=== PATIENT | male | born 1935 | race Caucasian/White ===

== ENCOUNTER 2023-05-10 16:14 | Observation (INO) | payer MEDICARE, SELFPAY ==
[2023-05-10 16:18] VITALS: BP 181/71; PULSE 97; RESP 16; TEMP 36.7; O2SAT 98; BMI 24.4
--- NOTE | 2023-05-10 16:25 | XR_ITS ---
The [address] [address] Patient Name: ARTEMIO LEAVITT MRN: [id number] date: 1935 Sex: M Assigned Patient Location: ER Current Patient Location: ER Accession/Order Number: [id number] Exam Date: 05/10/2023 16:48 Report Date: 05/10/2023 17:19 At the request of: JUAN CARLOS MCDANIELS Procedure: XR ankle LT min 3V EXAM: XR ankle LT min 3V, XR tibia fibula LT 2V HISTORY: pain COMPARISON: None. TECHNIQUE: 3 views of the left ankle. AP and lateral views of the left leg. FINDINGS: There is a spiral fracture of the distal fibula with mild valgus angulation and minimal lateral offset of the distal fracture fragment. The tibia is intact. There is mild widening at the medial aspect of the ankle mortise. Articulations at the knee are intact. Distal soft tissue swelling is noted. XR/XR ankle LT min 3V IMPRESSION: Spiral fracture of the distal fibula. Electronically authenticated by: Anuj BYERS Date: 05/10/2023 17:19
--- NOTE | 2023-05-10 16:25 | XR_ITS ---
The [address] [address] Patient Name: ARTEMIO LEAVITT MRN: [id number] date: 1935 Sex: M Assigned Patient Location: ER Current Patient Location: ER Accession/Order Number: [id number] Exam Date: 05/10/2023 16:48 Report Date: 05/10/2023 17:19 At the request of: JUAN CARLOS MCDANIELS Procedure: XR tibia fibula LT 2V EXAM: XR ankle LT min 3V, XR tibia fibula LT 2V HISTORY: pain COMPARISON: None. TECHNIQUE: 3 views of the left ankle. AP and lateral views of the left leg. FINDINGS: There is a spiral fracture of the distal fibula with mild valgus angulation and minimal lateral offset of the distal fracture fragment. The tibia is intact. There is mild widening at the medial aspect of the ankle mortise. Articulations at the knee are intact. Distal soft tissue swelling is noted. XR/XR tibia fibula LT 2V IMPRESSION: Spiral fracture of the distal fibula. Electronically authenticated by: Anuj BYERS Date: 05/10/2023 17:19
[2023-05-10] MEDS: HYDROCODONE/ACET 5-325 MG TABLET 1 TAB PO (16:43)
--- NOTE | 2023-05-10 18:06 | ED.GENADUL1 ---
HPI - General Adult General Chief complaint: Extremity Injury, Lower Stated complaint: Fall Time Seen by Provider: 05/10/23 16:25 Source: patient Mode of arrival: ambulance Limitations: no limitations History of Present Illness HPI narrative: Patient is a 87-year-old male who is presenting to the Emergency Room today with chief complaint of left lower leg pain. Patient is having moderate to severe pain to his left lower leg, ankle. It was initially reported by EMS the patient was having left hip pain. Patient was a home by himself, patient is alert and oriented ?3. Patient typically uses a wheelchair during the day and can use a walker to stand up for transfers at home. Patient earlier this morning was in the bathroom and had misstep with some type of twisting injury to his left lower ankle and falling down. Patient is on blood thinners, Eliquis. Patient denied his head. He has no headache or neck pain. Patient did have some right-sided chest wall pain, but that improved. Patiient has Leobardo wraps wrapped around his lower legs to help with lymphedema chronic. EMS was called to patient's house earlier this morning to help with a lift assist. Patient did not want to come to the Emergency Room at that time. However as the day progressed, patient cannot put any weight on his left lower leg. Patient finally called EMS again to bring patient back to the Emergency Room. Patient has no obvious deformity, no ecchymosis. Patient no longer has right sided chest wall pain, patient is only complaining of pain to his left lower leg and his ankle. No pain to his left foot, patient denies any pain to his left hip despite that his report we got from EMS upon arrival the patient was coming to the Emergency Room because of left hip pain. . All systems are negative except as noted/marked. All systems reviewed and otherwise negative. . Nurses note and vital signs reviewed and patient is not hypoxic. Alert and oriented ?3, GCS of 15. General: The patient appears Mild distress secondary to pain to left lower leg. Patient is resting uncomfortably on cart. Patient is not toxic, lethargic, or listless. Skin: Warm, dry, no pallor noted. There is no rash noted. No petechiae, purpura. Head: Normocephalic, atraumatic Eye: Normal conjunctiva, no drainage, EOMI. PERRL Ears, Nose, Mouth, and Throat: oral mucosa is moist. Nares patent. Mouth without vesicles. Cardiovascular: Regular Rate and Rhythm, no murmur, gallop, rub Respiratory: Patient is in no distress, no accessory muscle use, lungs are clear to auscultation, no wheezing, rales or rhonchi Back: non-tender, no CVA tenderness bilaterally to percussion. No CT LS midline pain GI: soft, no tenderness to palpation, no masses appreciated. No rebound, guarding, or rigidity noted. No flank pain bilateral, No distention Musculoskeletal: Patient has full range of motion of all of the extremities Except to left lower extremities. Patient has no pain to left hip with internal or external rotation, he does have pain to left lower leg without range of motion. Patient is able to flex and extend left knee with no pain to the left knee but to the distal left lower leg. Patient has no tenderness to palpation to the left foot, left Achilles tendon appears to be intact. Patient has moderate pain to the medial aspect of his left ankle, mild pain to the lateral aspect of his left ankle. Patient has moderate tenderness to palpation to the distal left tibia and fibula. No obvious deformity, no ecchymosis, no crepitus. Otherwise no motor, sensory, or focal neurological deficits Neurological: A&O x3, normal speech Psychiatric: Cooperative Related Data Home Medications Medication Instructions Recorded Confirmed apixaban 5 mg tablet (Eliquis) 5 mg PO QDAY 05/10/23 05/10/23 atorvastatin 40 mg tablet 40 mg PO .qhs 05/10/23 05/10/23 diltiazem HCl 180 mg 180 mg PO Q24H 05/10/23 05/10/23 capsule,extended release 24 hr ferrous sulfate 325 mg (65 mg 325 mg PO DAILY 05/10/23 05/10/23 iron) tablet metformin 750 mg tablet,extended 750 mg PO QDAY 05/10/23 05/10/23 release 24 hr metoprolol succinate 50 mg 50 mg PO QDAY 05/10/23 05/10/23 tablet,extended release 24 hr Allergies Allergy/AdvReac Type Severity Reaction Status Date / Time No Known Drug Allergies Allergy Verified 05/10/23 16:23 PFSH PFS Social History Smoking status: Never smoker Exam Constitutional Vital Signs, click to edit/add: Last Vital Signs Temp 98.1 F 05/10/23 16:18 Pulse 97 H 05/10/23 16:18 Resp 16 05/10/23 16:18 BP 181/71 H 05/10/23 16:18 Pulse Ox 98 05/10/23 16:18 O2 Del Method Room Air 05/10/23 16:18 Course Vital Signs Vital signs: Vital Signs Temperature 98.1 F 05/10/23 16:18 Pulse Rate 97 H 05/10/23 16:18 Respiratory Rate 16 05/10/23 16:18 Blood Pressure 181/71 H 05/10/23 16:18 Pulse Oximetry 98 05/10/23 16:18 Oxygen Delivery Method Room Air 05/10/23 16:18 Temperature 98.1 F 05/10/23 16:18 Pulse Rate 97 H 05/10/23 16:18 Respiratory Rate 16 05/10/23 16:18 Blood Pressure 181/71 H 05/10/23 16:18 Pulse Oximetry 98 05/10/23 16:18 Oxygen Delivery Method Room Air 05/10/23 16:18 Medical Decision Making [facility] Narrative Medical decision making narrative: Patient has a left distal fibula spiral fracture with minimal displacement noted on x-ray. [address] Rogers, orthopedic surgeon. He agrees with placing patient in a cam boot/surgical boot and this is nonoperable. He had no other recommendations at this time. Patient will be admitted to the hospital because he is not able to function at home. Patient was a home by himself, patient uses a wheelchair throughout the day, will use a walker for transfers only. [facility] Patient does not want to go back to [facility]. Patient will need physical therapy, occupational therapy, and rehab placement. Dr. Rogers, orthopedic surgeon, stated this is nonoperable. Patient had ice, Leobardo wrap and surgical boot applied. Patient is on Eliquis. Patient has history of diabetes, cholesterol, atrial fibrillation, and hypertension. Procedure note: Leobardo wrap and surgical boot to left lower extremity secondary to left distal spiral fibular fracture, displaced. Splint was assisted with . the patient was neurovascularly intact before and after the splint was placed. the affected bones/injured area had proper alignment in a splint. Education on splint care at home was given at bedside. Patient and family have no questions at discharge. I spoke to Mauri Thrasher CNP, for admission. Patient will be admission for MedSurg observation, patient will require social psychologist consultation along with physical therapy and occupational therapy consultation and most likely rehab placement. Lab Data Lab results reviewed: Yes I reviewed the patient's lab results Labs: Lab Results 05/10/23 Range/Units 18:18 WBC 13.2 H (4.0-11.0) 10^3/uL RBC 3.56 L (4.70-6.10) 10^6/uL Hgb 11.5 L (14.0-18.0) g/dL Hct 35.2 L (42.0-54.0) % MCV 98.9 H (80.0-94.0) fL MCH 32.3 (25.9-34.0) pg MCHC 32.7 (29.9-35.2) g/dL RDW 13.2 (11.0-15.0) % Plt Count 276 (150-450) 10^3/uL MPV 10.7 (9.5-13.5) fL Neut % (Auto) 88.9 H (43.0-75.0) % Lymph % (Auto) 3.9 L (20.5-60.0) % Garza % (Auto) 6.6 (1.7-12.0) % Eos % (Auto) 0.2 L (0.9-7.0) % Baso % (Auto) 0.2 (0.2-2.0) % Neut # (Auto) 11.8 H (1.4-6.5) 10^3/uL Lymph # (Auto) 0.5 L (1.2-3.8) 10^3/uL Garza # (Auto) 0.9 H (0.3-0.8) 10^3/uL Eos # (Auto) 0.0 (0.0-0.7) 10^3/uL Baso # (Auto) 0.0 (0.0-0.1) 10^3/uL Abs Immat Gran (auto) 0.03 (0.00-0.03) 10^3/uL Imm/Tot Granulo (auto) 0.2 (0.0-0.5) % Sodium 136 (136-145) mmol/L Potassium 3.8 (3.5-5.1) mmol/L Chloride 98 (98-107) mmol/L Carbon Dioxide 31.8 (21.0-32.0) mmol/L Anion Gap 10.0 BUN 20.0 H (7.0-18.0) mg/dL Creatinine 0.50 L (0.70-1.30) mg/dL Est GFR ( Amer) >60 (>=60) Est GFR (Non-Af Amer) >60 (>=60) BUN/Creatinine Ratio 40.0 Glucose 127 H (74-106) mg/dL Calcium 9.2 (8.5-10.1) mg/dL Total Creatine Kinase 295 (39-308) U/L Imaging Data Chest x-ray: Radiologist's impression: ITS Impressions Ankle X-Ray 05/10/23 16:25 IMPRESSION: Spiral fracture of the distal fibula. Electronically authenticated by: Anuj BYERS Date: 05/10/2023 17:19 Tibia/Fibula X-Ray 05/10/23 16:25 IMPRESSION: Spiral fracture of the distal fibula. Electronically authenticated by: Anuj BYERS Date: 05/10/2023 17:19 Discharge Plan Discharge Chief Complaint: Extremity Injury, Lower Clinical Impression: Ankle sprain and strain, Closed left fibular fracture Patient Disposition: Admitted as Observation Time of Disposition Decision: 18:10 Condition: Fair
[2023-05-10 18:26] LABS: Basophils Percent Auto 0.2 % (0.2-2.0); Eosinophils Percent Auto 0.2 % (0.9-7.0); Hematocrit 35.2 % (42.0-54.0); Hemoglobin 11.5 g/dL (14.0-18.0); Immature Granulocytes Abs Auto 0.03 10^3/uL (0.00-0.03); Immature Granulocytes Pct Auto 0.2 % (0.0-0.5); Lymphocytes Absolute Auto 0.5 10^3/uL (1.2-3.8); Lymphocytes Percent Auto 3.9 % (20.5-60.0); Mean Corpuscular HGB Conc 32.7 g/dL (29.9-35.2); Mean Corpuscular Hemoglobin 32.3 pg (25.9-34.0); Mean Corpuscular Volume 98.9 fL (80.0-94.0); Mean Platelet Volume 10.7 fL (9.5-13.5); Monocytes Absolute Auto 0.9 10^3/uL (0.3-0.8); Monocytes Percent Auto 6.6 % (1.7-12.0); Neutrophils Absolute Auto 11.8 10^3/uL (1.4-6.5); Neutrophils Percent Auto 88.9 % (43.0-75.0); Platelet Count 276 10^3/uL (150-450); Red Blood Count 3.56 10^6/uL (4.70-6.10); Red Cell Distribution Width 13.2 % (11.0-15.0); White Blood Count 13.2 10^3/uL (4.0-11.0)
[2023-05-10 18:36] LABS: Calcium 9.2 mg/dL (8.5-10.1); Carbon Dioxide 31.8 mmol/L (21.0-32.0); Chloride 98 mmol/L (98-107); Estimated GFR (African America >60 (>=60); Estimated GFR (Non-African Ame >60 (>=60); Glucose 127 mg/dL (74-106); Potassium 3.8 mmol/L (3.5-5.1); Sodium 136 mmol/L (136-145)
[2023-05-10 18:52] LABS: Creatine Kinase 295 U/L (39-308)
[2023-05-10 19:31] VITALS: BP 153/74; PULSE 74; RESP 16; TEMP 36.6; O2SAT 94
[2023-05-10 19:52] VITALS: BP 153/74; PULSE 78; RESP 16; TEMP 36.6; O2SAT 94
[2023-05-10 20:13] VITALS: BP 168/70; PULSE 72; RESP 20; TEMP 37; O2SAT 91; BMI 22.4
[2023-05-10 22:34] LABS: Glucometer 195 mg/dL (74-106)
[2023-05-11] VITALS (11 sets, daily range): BP systolic 112–165; BP diastolic 54–72; PULSE 63–87; RESP 18–20; TEMP 36.4–36.6; O2SAT 90–92; BMI 22.4
[2023-05-11] MEDS: HYDROCODONE/ACET 5-325 MG TABLET 1 TAB PO ×3 (01:17→21:21)
[2023-05-11 06:02] LABS: Basophils Percent Auto 0.2 % (0.2-2.0); Eosinophils Percent Auto 0.2 % (0.9-7.0); Hematocrit 29.7 % (42.0-54.0); Hemoglobin 9.7 g/dL (14.0-18.0); Immature Granulocytes Abs Auto 0.04 10^3/uL (0.00-0.03); Immature Granulocytes Pct Auto 0.5 % (0.0-0.5); Lymphocytes Absolute Auto 0.6 10^3/uL (1.2-3.8); Lymphocytes Percent Auto 6.3 % (20.5-60.0); Mean Corpuscular HGB Conc 32.7 g/dL (29.9-35.2); Mean Corpuscular Hemoglobin 32.2 pg (25.9-34.0); Mean Corpuscular Volume 98.7 fL (80.0-94.0); Mean Platelet Volume 11.3 fL (9.5-13.5); Monocytes Absolute Auto 0.9 10^3/uL (0.3-0.8); Monocytes Percent Auto 10.6 % (1.7-12.0); Neutrophils Absolute Auto 7.3 10^3/uL (1.4-6.5); Neutrophils Percent Auto 82.2 % (43.0-75.0); Platelet Count 250 10^3/uL (150-450); Red Blood Count 3.01 10^6/uL (4.70-6.10); Red Cell Distribution Width 13.2 % (11.0-15.0); White Blood Count 8.8 10^3/uL (4.0-11.0)
[2023-05-11 06:19] LABS: Anion Gap 9.3; BUN Creatinine Ratio 42.6; Calcium 8.6 mg/dL (8.5-10.1); Carbon Dioxide 31.2 mmol/L (21.0-32.0); Chloride 99 mmol/L (98-107); Estimated GFR (African America >60 (>=60); Estimated GFR (Non-African Ame >60 (>=60); Glucose 124 mg/dL (74-106); Potassium 3.5 mmol/L (3.5-5.1); Sodium 136 mmol/L (136-145)
[2023-05-11] MEDS: SENNOSIDES 8.6 MG TABLET PO (07:53)
[2023-05-11] MEDS: METOPROLOL SUCCINATE 50 MG TAB.ER.24H PO (08:35)
[2023-05-11] MEDS: METFORMIN HCL 500 MG TAB.ER.24H 750 MG PO (08:35)
[2023-05-11] MEDS: APIXABAN 5 MG TABLET PO (08:35)
[2023-05-11] MEDS: FERROUS SULFATE 325 MG TABLET PO (08:38)
[2023-05-11 09:25] LABS: Adenovirus NOT DETECTED (NOT DETECTE); Bordetella parapertussis NOT DETECTED (NOT DETECTE); Coronavirus 229E NOT DETECTED (NOT DETECTE); Coronavirus HKU1 NOT DETECTED (NOT DETECTE); Coronavirus NL63 NOT DETECTED (NOT DETECTE); Coronavirus OC43 NOT DETECTED (NOT DETECTE); Human Metapneumovirus NOT DETECTED (NOT DETECTE); Human Rhinovirus/Enterovirus NOT DETECTED (NOT DETECTE); Influenza A NOT DETECTED (NOT DETECTE); Influenza B NOT DETECTED (NOT DETECTE); Mycoplasma pneumoniae NOT DETECTED (NOT DETECTE); Parainfluenza Virus 1 NOT DETECTED (NOT DETECTE); Parainfluenza Virus 2 NOT DETECTED (NOT DETECTE); Parainfluenza Virus 3 NOT DETECTED (NOT DETECTE); Parainfluenza Virus 4 NOT DETECTED (NOT DETECTE); Respiratory Syncytial Virus NOT DETECTED (NOT DETECTE); SARS-CoV-2 NOT DETECTED (NOT DETECTE)
--- NOTE | 2023-05-11 10:58 | CM.NOTE ---
Rounding with Dr. Louis, discussed with pt about skilled therapy at discharge. Pt is in agreement for [facility].
[2023-05-11 11:23] LABS: Glucometer 189 mg/dL (74-106)
--- NOTE | 2023-05-11 11:50 | P.HP_ITS ---
<Statement entered by Bob Louis MD - 05/11/23 17:31> Patient seen and examined, agree with assessment and plan below. Presented after a fall and increased ankle pain. Found fracture and ER discussed with ortho who stated nonsurgical. Admitted for pain control. Consult ortho for weight bearing status. Continue medication for pain. Likely will need SNF for rehab. Diagnosis: 1. Closed left fibular fracture 2. Left ankle sprain 3. DM2 with hyperglycemia 4. HTN 5. 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 The patient reports he was trying to retrieve something from the toilet bowl when he lost his balance and fell. His foot was stuck in an awkward position when he fell resulting in left ankle pain. He presented to the ED for further evaluation as he was unable to ambulate. Workup in the ED revealed hyperglycemia (124), with otherwise unremarkable labs. X-rays of his left ankle revealed a distal fibula spiral fracture with mild valgus angulation and minimal offset of the distal fragment. Dr. Rogers was consulted from the ED and he informed them that this was a nonsurgical fracture and the splint should be placed. As the patient lives alone and will be unable to care for himself while he is currently nonambulatory, he was admitted to observation to the hospitalist service with hopes of placement at a local SNF for rehab. At the time of my exam the patient is resting comfortably in bed. He complains of nasal congestion that is intermittent and chronic for him and left ankle pain, but otherwise denies any acute complaints. He has very minimal range of motion of his bilateral shoulders due to chronic MSK issues. He navigates mostly in a wheelchair at home due to his severe balance problems, but does use a walker to ambulate in his bathroom as a wheelchair does not fit. He is aware this is a nonsurgical fracture. We have consulted Dr. Rogers for long-term immobilization recommendations as well as weightbearing and physical therapy recommendations. Review of Systems ROS Status of ROS 10 or more systems reviewed and unremark able except as noted in history and below [facility] Medical History (Updated 05/11/23 @ 12:03 by Tyra Schroeder NP) Paroxysmal atrial fibrillation ?I48.0 - Paroxysmal atrial fibrillation (ICD-10) Type 2 diabetes mellitus with hyperglycemia ?E11.65 - Type 2 diabetes mellitus with hyperglycemia (ICD-10) HTN (hypertension) ?I10 - Essential (primary) hypertension (ICD-10) Ankle sprain and strain ?S93.409A - Sprain of unspecified ligament of unspecified ankle, initial encounter (ICD-10) ?S96.919A - Strain of unspecified muscle and tendon at ankle and foot level, unspecified foot, initial encounter (ICD-10) High cholesterol ?E78.00 - Pure hypercholesterolemia, unspecified (ICD-10) Atrial fibrillation ?I48.91 - Unspecified atrial fibrillation (ICD-10) Diabetes 1.5, managed as type 2 ?E13.9 - Other specified diabetes mellitus without complications (ICD-10) Surgical History (Updated 05/10/23 @ 20:31 by Rukhsana Perez) Hernia ?K46.9 - Unspecified abdominal hernia without obstruction or gangrene (ICD- 10) History of tonsillectomy ?Z90.89 - Acquired absence of other organs (ICD-10) Back pain with history of spinal surgery ?M54.9 - Dorsalgia, unspecified (ICD-10) ?Z98.890 - Other specified postprocedural states (ICD-10) Social History (Updated 05/10/23 @ 20:32 by Rukhsana Perez) Within the past year, how often did you have a drink containing alcohol: 4 or more times a week Within the past year, how many standard drinks containing alcohol did you have on a typical day: 1 or 2 Total score: 0 Score interpretation: A score less than 4 is consistent with normal alcohol consumption. Smoking status: Never smoker Non-prescribed substance use: denies use Previous occupational history: retired Highest level of school completed/degree received: Bachelor's degree Are you now , , , , never or living with a partner: In a typical week, how many times do you talk on the telephone with family, friends, or neighbors: 3 or more times per week How often do you get together with friends or relatives: 3 or more times per week How often do you attend religion or hindu services: never Do you belong to any clubs or organizations such as religion groups unions, fraternal or athletic groups, or school groups: no Total score: 2 Score interpretation: A score of greater than or equal to 2 indicates the lowest level of social isolation. Little interest or pleasure in doing things: not at all Feeling down, depressed, or hopeless: not at all Feel stressed/tense/nervous/anxious/difficulty sleeping: not at all Do you think of yourself as: straight/heterosexual Gender Identity: male Meds Home Medications and Allergies Home Medications Medication Instructions Recorded Confirmed Type apixaban 5 mg tablet (Eliquis) 5 mg PO QDAY 05/10/23 05/10/23 History atorvastatin 40 mg tablet 40 mg PO .qhs 05/10/23 05/10/23 History diltiazem HCl 180 mg 180 mg PO Q24H 05/10/23 05/10/23 History capsule,extended release 24 hr ferrous sulfate 325 mg (65 mg 325 mg PO DAILY 05/10/23 05/10/23 History iron) tablet metformin 750 mg tablet,extended 750 mg PO QDAY 05/10/23 05/10/23 History release 24 hr metoprolol succinate 50 mg 50 mg PO QDAY 05/10/23 05/10/23 History tablet,extended release 24 hr Allergies Allergy/AdvReac Type Severity Reaction Status Date / Time No Known Drug Allergies Allergy Verified 05/10/23 16:23 Exam Constitutional Vital Signs, click to edit/add: Last Vital Signs Temp 97.5 F L 05/11/23 05:31 Pulse 63 05/11/23 05:31 Resp 18 05/11/23 08:00 BP 112/54 05/11/23 05:31 Pulse Ox 91 L 05/11/23 05:31 O2 Del Method Room Air 05/11/23 05:31 Common normals: no apparent distress, oriented x3, alert and well nourished General appearance: cooperative Orientation/consciousness: Yes awake HENMT Common normals: normocephalic, head/scalp atraumatic, hearing grossly normal bilaterally, external nose normal and moist oral mucous membranes Eye Common normals: PERRL, EOMs intact bilaterally, conjunctivae normal and no scleral icterus Alignment: alignment normal Eyelid: eyelids normal Neck & C-Spine Common normals: full ROM, supple and no JVD Chest Common normals: inspection of chest normal Chest: symmetrical chest wall rise Respiratory Common normals: normal respiratory effort, no retractions, no use of accessory muscles and clear to auscultation bilaterally Cardio Common normals: no JVD, regular rate, regular rhythm, S1 normal heart sound, S2 normal heart sound, no gallops, no clicks, no rub and peripheral pulses 2+ throughout Heart sounds: murmur (HSM 4/6) GI Common normals: Normal to inspection, nondistended, normoactive bowel sounds present, soft to palpation, non-tender, no hepatosplenomegaly, no masses and no bruits Bladder/kidney exam: bladder normal to palpation Back & Pelvis Common normals: thoracic and lumbar spine normal to inspection Extremity Common normals: normal capillary refill General: normal exam except as noted and edema (Chronic venous stasis edema, 2- 3+ midshin to toes); no clubbing and no cyanosis Left lower extremity: ankle joint (Painful. Splint in place. CMS to L toes intact) Other: Chronic venous stasis dermatitis. Neuro Carlos Coma Scale: GCS not evaluated Common normals: CN's II-XII intact bilaterally, moves all extremities, no focal motor deficits and no sensory deficits noted Speech: speech normal Sensory exam: sensory level loss detected (BLE 2/2 chronic neuropathy) Psych Common normals: mental status grossly normal, thought process normal, affect normal and activity/motor behavior normal Results Labs Labs: Short CBC 05/10/23 05/11/23 Range/Units 18:18 05:13 WBC 13.2 H 8.8 (4.0-11.0) 10^3/uL Hgb 11.5 L 9.7 L (14.0-18.0) g/dL Hct 35.2 L 29.7 L (42.0-54.0) % Plt Count 276 250 (150-450) 10^3/uL BMP 05/10/23 05/11/23 18:18 05:13 Sodium 136 136 Potassium 3.8 3.5 Chloride 98 99 Carbon Dioxide 31.8 31.2 BUN 20.0 H 23.0 H Creatinine 0.50 L 0.54 L Glucose 127 H 124 H Calcium 9.2 8.6 Cardiac Enzymes 05/10/23 Range/Units 18:18 Total Creatine Kinase 295 (39-308) U/L Pulse Oximetry Attestation: I have reviewed the pertinent pulse oximetry results. Imaging L Ankle/Tib/Fib: Radiologist's impression: IMPRESSION: Spiral fracture of the distal fibula. Assessment and Plan Assessment and Plan (1) Closed left fibular fracture: Assessment and Plan: ACUTE * Adm observation * Maintain splint to L ankle as placed in ED * C/S Orthopedics - we appreciate Dr Rogers's assistance with this pt's care * Defer immobilization, WB, and PT order scope to ortho service * Dola PRN for pain * Plan d/c to local SNF for rehab (2) High cholesterol: Assessment and Plan: CHRONIC * Continue home statin (3) HTN (hypertension): Assessment and Plan: CHRONIC * Continue home BB * PRN hydralazine IVP for uncontrolled HTN (4) Type 2 diabetes mellitus with hyperglycemia: Assessment and Plan: CHRONIC * Continue home metformin * ACHS glucometer checks * SSI for glucose correction * CC diet 1800 kcal (5) Paroxysmal atrial fibrillation: Assessment and Plan: CHRONIC * Continue home Eliquis for CVA prevention * Surgical intervention for L ankle fracture not indicated per ortho. No need to hold anticoagulation * Continue home BB for rate control - currently well controlled * tele monitoring
--- NOTE | 2023-05-11 12:29 | CM.NOTE ---
Faxed clinical to [facility] for new referral.
[2023-05-11] MEDS: PSEUDOEPHEDRINE HCL 30 MG TABLET PO ×2 (12:31→21:21)
--- NOTE | 2023-05-11 12:57 | DIETREC ---
Recommend Ensure 1 container bid po for progressive healing of fracture
--- NOTE | 2023-05-11 13:26 | CM.NOTE ---
[facility] will accept pt, updated RN and patient.
--- NOTE | 2023-05-11 16:25 | CM.NOTE ---
Medicare Outpatient Observation Notice discussed with pt, pt verbalizes understanding and signs paper. Original given to pt and copy placed on pt's chart.
[2023-05-11 16:34] LABS: Glucometer 119 mg/dL (74-106)
--- NOTE | 2023-05-11 18:50 | P.ORCN_ITS ---
History of Present Illness HPI Consult date: 05/11/23 Consult reason: fracture Chief complaint: Fall,Left Distal Fibula Fracture Narrative: Patient is an 87-year-old male who was sitting on the toilet today. He dropped some tissue in the toilet stood up to try to get off the tissue fell twisting his left ankle with acute onset of pain. He was transported to the emergency room where x-rays revealed a distal fibula fracture. At baseline he mobilizes typically using a wheelchair due to difficulties with balance. He will bear weight on his legs for transfers using a walker for assistance. Review of Systems ROS Status of ROS 10 or more systems reviewed and unremark able except as noted in history and below [facility] Medical History (Updated 05/11/23 @ 12:03 by Tyra Schroeder NP) Paroxysmal atrial fibrillation ?I48.0 - Paroxysmal atrial fibrillation (ICD-10) Type 2 diabetes mellitus with hyperglycemia ?E11.65 - Type 2 diabetes mellitus with hyperglycemia (ICD-10) HTN (hypertension) ?I10 - Essential (primary) hypertension (ICD-10) Ankle sprain and strain ?S93.409A - Sprain of unspecified ligament of unspecified ankle, initial encounter (ICD-10) ?S96.919A - Strain of unspecified muscle and tendon at ankle and foot level, unspecified foot, initial encounter (ICD-10) High cholesterol ?E78.00 - Pure hypercholesterolemia, unspecified (ICD-10) Atrial fibrillation ?I48.91 - Unspecified atrial fibrillation (ICD-10) Diabetes 1.5, managed as type 2 ?E13.9 - Other specified diabetes mellitus without complications (ICD-10) Surgical History (Updated 05/10/23 @ 20:31 by Rukhsana Perez) Hernia ?K46.9 - Unspecified abdominal hernia without obstruction or gangrene (ICD- 10) History of tonsillectomy ?Z90.89 - Acquired absence of other organs (ICD-10) Back pain with history of spinal surgery ?M54.9 - Dorsalgia, unspecified (ICD-10) ?Z98.890 - Other specified postprocedural states (ICD-10) Social History (Updated 05/10/23 @ 20:32 by Rukhsana Perez) Within the past year, how often did you have a drink containing alcohol: 4 or more times a week Within the past year, how many standard drinks containing alcohol did you have on a typical day: 1 or 2 Total score: 0 Score interpretation: A score less than 4 is consistent with normal alcohol consumption. Smoking status: Never smoker Non-prescribed substance use: denies use Previous occupational history: retired Highest level of school completed/degree received: Bachelor's degree Are you now , , , , never or living with a partner: In a typical week, how many times do you talk on the telephone with family, frie nds, or neighbors: 3 or more times per week How often do you get together with friends or relatives: 3 or more times per week How often do you attend congregational or evangelical services: never Do you belong to any clubs or organizations such as congregational groups unions, [employer] or athletic groups, or school groups: no Total score: 2 Score interpretation: A score of greater than or equal to 2 indicates the lowest level of social isolation. Little interest or pleasure in doing things: not at all Feeling down, depressed, or hopeless: not at all Feel stressed/tense/nervous/anxious/difficulty sleeping: not at all Do you think of yourself as: straight/heterosexual Gender Identity: male Meds Home Medications and Allergies Home Medications Medication Instructions Recorded Confirmed Type apixaban 5 mg tablet (Eliquis) 5 mg PO QDAY 05/10/23 05/10/23 History atorvastatin 40 mg tablet 40 mg PO .qhs 05/10/23 05/10/23 History diltiazem HCl 180 mg 180 mg PO Q24H 05/10/23 05/10/23 History capsule,extended release 24 hr ferrous sulfate 325 mg (65 mg 325 mg PO DAILY 05/10/23 05/10/23 History iron) tablet metformin 750 mg tablet,extended 750 mg PO QDAY 05/10/23 05/10/23 History release 24 hr metoprolol succinate 50 mg 50 mg PO QDAY 05/10/23 05/10/23 History tablet,extended release 24 hr Allergies Allergy/AdvReac Type Severity Reaction Status Date / Time No Known Drug Allergies Allergy Verified 05/10/23 16:23 Exam Narrative Exam Narrative: On exam he is in no obvious distress. Left ankle boot was removed. No significant swelling in his ankle. Skin is intact. Good capillary refill in the toes and is able to wiggle his toes. Constitutional Vital Signs, click to edit/add: Last Vital Signs Temp 97.9 F 05/11/23 14:00 Pulse 80 05/11/23 17:27 Resp 18 05/11/23 14:00 BP 133/69 05/11/23 14:00 Pulse Ox 92 L 05/11/23 14:00 O2 Del Method Room Air 05/11/23 14:00 Results Labs Labs: Abnormal lab results 05/10/23 05/11/23 05/11/23 Range/Units 22:29 05:13 11:22 RBC 3.01 L (4.70-6.10) 10^6/uL Hgb 9.7 L (14.0-18.0) g/dL Hct 29.7 L (42.0-54.0) % MCV 98.7 H (80.0-94.0) fL Neut % (Auto) 82.2 H (43.0-75.0) % Lymph % (Auto) 6.3 L (20.5-60.0) % Eos % (Auto) 0.2 L (0.9-7.0) % Neut # (Auto) 7.3 H (1.4-6.5) 10^3/uL Lymph # (Auto) 0.6 L (1.2-3.8) 10^3/uL [place] # (Auto) 0.9 H (0.3-0.8) 10^3/uL Abs Immat Gran (auto) 0.04 H (0.00-0.03) 10^3/uL BUN 23.0 H (7.0-18.0) mg/dL Creatinine 0.54 L (0.70-1.30) mg/dL Glucose 124 H (74-106) mg/dL POC Glucose 195 H 189 H (74-106) mg/dL 05/11/23 Range/Units 16:33 RBC (4.70-6.10) 10^6/uL Hgb (14.0-18.0) g/dL Hct (42.0-54.0) % MCV (80.0-94.0) fL Neut % (Auto) (43.0-75.0) % Lymph % (Auto) (20.5-60.0) % Eos % (Auto) (0.9-7.0) % Neut # (Auto) (1.4-6.5) 10^3/uL Lymph # (Auto) (1.2-3.8) 10^3/uL [place] # (Auto) (0.3-0.8) 10^3/uL Abs Immat Gran (auto) (0.00-0.03) 10^3/uL BUN (7.0-18.0) mg/dL Creatinine (0.70-1.30) mg/dL Glucose (74-106) mg/dL POC Glucose 119 H (74-106) mg/dL H & H 05/10/23 05/11/23 Range/Units 18:18 05:13 Hgb 11.5 L 9.7 L (14.0-18.0) g/dL Hct 35.2 L 29.7 L (42.0-54.0) % All other labs normal. Diagnostic results Ankle/Foot x-ray: image reviewed (X-rays show a minimally displaced distal fibula fracture in the setting of severe osteoporosis. No widening of the ankle mortise) Assessment and Plan Assessment and Plan (1) Closed left fibular fracture: (2) High cholesterol: (3) HTN (hypertension): (4) Type 2 diabetes mellitus with hyperglycemia: (5) Paroxysmal atrial fibrillation: Plan For his left distal fibular fracture he can be treated long-term in the cam boot. No indication for surgical intervention. Recommend elevation. Patient may bear weight for transfers using a walker as long as he is wearing the boot. He should have follow-up in the office with me in 2 weeks to repeat x-rays and reassess his progress.
[2023-05-11 19:59] LABS: Glucometer 210 mg/dL (74-106)
[2023-05-11] MEDS: ATORVASTATIN CALCIUM 40 MG TABLET PO (21:21)
[2023-05-11] MEDS: DILTIAZEM HCL 180 MG CAP.ER.24H PO (21:21)
[2023-05-12] VITALS (8 sets, daily range): BP systolic 132–144; BP diastolic 58–60; PULSE 61–74; RESP 18; TEMP 36.5–36.8; O2SAT 90–92
[2023-05-12 05:08] LABS: Basophils Percent Auto 0.3 % (0.2-2.0); Eosinophils Absolute Auto 0.2 10^3/uL (0.0-0.7); Eosinophils Percent Auto 2.1 % (0.9-7.0); Hematocrit 29.3 % (42.0-54.0); Hemoglobin 9.6 g/dL (14.0-18.0); Immature Granulocytes Abs Auto 0.03 10^3/uL (0.00-0.03); Immature Granulocytes Pct Auto 0.4 % (0.0-0.5); Lymphocytes Absolute Auto 0.7 10^3/uL (1.2-3.8); Lymphocytes Percent Auto 9.8 % (20.5-60.0); Mean Corpuscular HGB Conc 32.8 g/dL (29.9-35.2); Mean Corpuscular Hemoglobin 32.3 pg (25.9-34.0); Mean Corpuscular Volume 98.7 fL (80.0-94.0); Mean Platelet Volume 11.3 fL (9.5-13.5); Monocytes Absolute Auto 0.9 10^3/uL (0.3-0.8); Monocytes Percent Auto 12.2 % (1.7-12.0); Neutrophils Absolute Auto 5.4 10^3/uL (1.4-6.5); Neutrophils Percent Auto 75.2 % (43.0-75.0); Platelet Count 220 10^3/uL (150-450); Red Blood Count 2.97 10^6/uL (4.70-6.10); Red Cell Distribution Width 13.2 % (11.0-15.0); White Blood Count 7.2 10^3/uL (4.0-11.0)
[2023-05-12 05:17] LABS: Anion Gap 4.9; Calcium 8.3 mg/dL (8.5-10.1); Carbon Dioxide 32.4 mmol/L (21.0-32.0); Chloride 99 mmol/L (98-107); Estimated GFR (African America >60 (>=60); Estimated GFR (Non-African Ame >60 (>=60); Glucose 104 mg/dL (74-106); Potassium 3.3 mmol/L (3.5-5.1); Sodium 133 mmol/L (136-145)
[2023-05-12] MEDS: HYDROCODONE/ACET 5-325 MG TABLET 1 TAB PO (06:44)
[2023-05-12] MEDS: SENNOSIDES 8.6 MG TABLET PO (09:01)
[2023-05-12] MEDS: METOPROLOL SUCCINATE 50 MG TAB.ER.24H PO (09:01)
[2023-05-12] MEDS: METFORMIN HCL 500 MG TAB.ER.24H 750 MG PO (09:01)
[2023-05-12] MEDS: FERROUS SULFATE 325 MG TABLET PO (09:01)
[2023-05-12] MEDS: PSEUDOEPHEDRINE HCL 30 MG TABLET PO (09:01)
--- NOTE | 2023-05-12 09:51 | CM.NOTE ---
Rounding with Dr. Louis. Pt. complaining about telemetry and Dr. Louis stated he will discontinue it. Discussed discharge plan and awaiting precert for [facility] facility [place].
[2023-05-12] MEDS: APIXABAN 5 MG TABLET PO (09:56)
--- NOTE | 2023-05-12 10:29 | CM.NOTE ---
Called Destinee sandhu GOODWIN to check on pt's precert, no word from insurance company at this time. Updates sent.
--- NOTE | 2023-05-12 10:59 | PT.DAILY ---
Physical Therapy Daily Note PT Daily Note/Assess Start: 05/12/23 10:50 Freq: Status: Active Protocol: Document 05/12/23 10:50 ZAHEER (Rec: 05/12/23 10:59 ZAHEER [id number]) Physical Therapy Daily Note/Assessment Time In/Time Out Time In 10:15 Time Out 10:30 Pain In Pain N/A Pain Out Pain Unresponsive Subjective Subjective Pt supine upon arrival. Agrees to PT. Reports sitting EOB with OT for breakfast. Therapeutic Exercise Time Therapeutic Exercise Minutes (minutes) 3 Therapeutic Exercise Units 0 Therapeutic Exercise Treatment Therapeutic Exercise Treatment Sitting EOB unsupported R AP, LAQ, marches and bilat Add squeezes 10x. L LAQ and marches 5x ea. Therapeutic Activity Time Therapeutic Activity Minutes (minutes) 10 Therapeutic Activity Units 1 Therapeutic Activity Treatment Bed Mobility Ability Moderate Assist Chair Transfer Ability Maximum Assist Therapeutic Activity Comments Pt performs supine>sit with ModA to advance upper body to sit EOB with increased time needed. Once sitting EOB unsupported to complete seated ex. Pt attempts to stand 4x with MaxA at RW but too apprehensive per pt. He just doesn't feel confident. Pt is then able to scoot himself up bed laterally to HOB without assistance. Pt returned to supine with Elizabeth to advance LEs into bed. Pillows placed under R LE due to swelling ( opposite of boot) Remains supine withcall light in reach and needs met. Total Physical Therapy Time Total Therapy Minutes 13 Total Physical Therapy Units 1 Summary Daily Note Summary Fair tolerance with session. Apprehensive with standing with 4x attempts. Able to scoot himself up bed with bilat LEs and R LE. Fatigued post rx. Feels like I worked out for 4 hours.
--- NOTE | 2023-05-12 11:47 | PM.PN ---
Progress Note: Subjective Subjective Interval history: Patient feels well this am. Pain tolerable with medication. Seen by ortho and recommend minimal weight bearing with transfers as long as wearing boot. Working with PT/OT. Afebrile. Normal appetite and no emesis or diarrhea. No chest pain or SOB. Exam Constitutional Vital Signs, click to edit/add: Last Vital Signs Temp 98.3 F 05/12/23 05:26 Pulse 64 05/12/23 07:49 Resp 18 05/12/23 08:00 BP 144/58 H 05/12/23 05:26 Pulse Ox 90 L 05/12/23 05:26 O2 Del Method Room Air 05/12/23 05:26 Documenting provider has reviewed patient's vital signs: yes Common normals: no apparent distress and oriented x3 HENMT Common normals: normocephalic Eye Common normals: PERRL and EOMs intact bilaterally Respiratory Common normals: normal respiratory effort and clear to auscultation bilaterally Cardio Common normals: regular rate, regular rhythm, no gallops, no murmurs and no rub GI Common normals: Normal to inspection, nondistended, normoactive bowel sounds present and non-tender Extremity Common normals: no pedal edema Progress Note: Objective Labs Labs: Short CBC 05/12/23 Range/Units 04:26 WBC 7.2 (4.0-11.0) 10^3/uL Hgb 9.6 L (14.0-18.0) g/dL Hct 29.3 L (42.0-54.0) % Plt Count 220 (150-450) 10^3/uL BMP 05/12/23 04:26 Sodium 133 L Potassium 3.3 L Chloride 99 Carbon Dioxide 32.4 H BUN 23.0 H Creatinine 0.50 L Glucose 104 Calcium 8.3 L Progress Note: A&P Assessment and Plan (1) Closed left fibular fracture: (2) Ankle sprain and strain: (3) Type 2 diabetes mellitus with hyperglycemia: (4) HTN (hypertension): (5) Paroxysmal atrial fibrillation: Plan Patient feels well and pain controlled with medication. Continue PT/OT. Awaiting insurance approval for SNF.
[2023-05-12 11:53] LABS: Glucometer 189 mg/dL (74-106)
--- NOTE | 2023-05-12 16:09 | PM.DS1 ---
DS: Providers Provider Date of admission: 05/10/23 19:52 Primary care physician: HIEN TEIXEIRA Consults: 05/10/23 18:27 Consult to Pharmacognosy Teacher Routine Has provider been notified: No Reason for consult:: [facility] Eval and Treat Routine Reason for consultation: Fx L distal tibia; WC BOUND Has provider been notified: No Physical Therapy Eval and Treat Routine Reason for consultation: Fx L distal tibia; WC Bound Has provider been notified: No 05/11/23 08:21 Consult to Orthopedics Routine Consulting Provider: Amauri Rogers Reason for consultation: Distal fib fx; immobilization, WB and PT recommendations Has provider been notified: No DS: Diagnosis Discharge Diagnosis (1) Closed left fibular fracture: (2) Ankle sprain and strain: (3) Type 2 diabetes mellitus with hyperglycemia: (4) HTN (hypertension): (5) Paroxysmal atrial fibrillation: DS: Summary Hospital Course Hospital Course: Reason for admission: See ER note and H&P for details. 87 y/o male to ER with left ankle pain. Typically uses a wheelchair and able to stand and pivot. In bathroom and twisted when left ankle gave out and fell. Called EMS to for lift assist but did not want to go to ER. Later in day pain worsened. Severe pain and not able to bear weight. To ER and x-ray showed left distal fibular fracture. ER spoke with ortho and advised to place in boot and it is not surgical. Admitted for pain control. Hospital course: Started norco for pain. Ortho consulted and recommended minimal weight bearing with transfers if wearing boot. PT/OT started. Patient having difficulty moving or transferring and recommended SNF. Information sent to insurance for approval. Did well in hospital and pain controlled. Received insurance approval and transferred to SNF in stable condition. Resume home medication as directed. Time Spent with Patient Time attestation: Total time spent providing and/or coordinating discharge services: Exam Constitutional Vital Signs, click to edit/add: Last Vital Signs Temp 97.7 F 05/12/23 14:00 Pulse 61 05/12/23 14:00 Resp 18 05/12/23 14:00 BP 132/60 05/12/23 14:00 Pulse Ox 92 L 05/12/23 14:00 O2 Del Method Room Air 05/12/23 14:00 Documenting provider has reviewed patient's vital signs: yes Common normals: no apparent distress, oriented x3 and alert HENMT Common normals: normocephalic Eye Common normals: PERRL and EOMs intact bilaterally Cardio Common normals: regular rate, regular rhythm, no gallops, no murmurs and no rub GI Common normals: Normal to inspection, nondistended, normoactive bowel sounds present and non-tender Extremity Common normals: no pedal edema DS: Data Data Completed and Pending Labs on day of discharge: Labs from last 24 hours 05/12/23 05/12/23 05/11/23 11:52 04:26 19:58 WBC 7.2 RBC 2.97 L Hgb 9.6 L Hct 29.3 L MCV 98.7 H MCH 32.3 MCHC 32.8 RDW 13.2 Plt Count 220 MPV 11.3 Neut % (Auto) 75.2 H Lymph % (Auto) 9.8 L Bartholomew % (Auto) 12.2 H Eos % (Auto) 2.1 Baso % (Auto) 0.3 Neut # (Auto) 5.4 Lymph # (Auto) 0.7 L Bartholomew # (Auto) 0.9 H Eos # (Auto) 0.2 Baso # (Auto) 0.0 Abs Immat Gran (auto) 0.03 Imm/Tot Granulo (auto) 0.4 Sodium 133 L Potassium 3.3 L Chloride 99 Carbon Dioxide 32.4 H Anion Gap 4.9 BUN 23.0 H Creatinine 0.50 L Est GFR ( Amer) >60 Est GFR (Non-Af Amer) >60 BUN/Creatinine Ratio 46.0 Glucose 104 Calcium 8.3 L POC Glucose 189 H 210 H 05/11/23 16:33 WBC RBC Hgb Hct MCV MCH MCHC RDW Plt Count MPV Neut % (Auto) Lymph % (Auto) Bartholomew % (Auto) Eos % (Auto) Baso % (Auto) Neut # (Auto) Lymph # (Auto) Bartholomew # (Auto) Eos # (Auto) Baso # (Auto) Abs Immat Gran (auto) Imm/Tot Granulo (auto) Sodium Potassium Chloride Carbon Dioxide Anion Gap BUN Creatinine Est GFR ( Amer) Est GFR (Non-Af Amer) BUN/Creatinine Ratio Glucose Calcium POC Glucose 119 H Discharge Plan Discharge Disposition: Xfer SNF Condition: Fair Discharge Medications: New hydrocodone-acetaminophen 5-325 mg Tablet 1 tab PO Q6H PRN (Reason: Pain Scale 7-10) 5 Days Qty: 20 0RF Continued Eliquis 5 mg tablet 5 mg PO QDAY atorvastatin 40 mg tablet 40 mg PO .qhs diltiazem HCl 180 mg capsule,extended release 24hr 180 mg PO Q24H ferrous sulfate 325 mg (65 mg iron) tablet 325 mg PO DAILY metformin 750 mg tablet extended release 24 hr 750 mg PO QDAY metoprolol succinate 50 mg tablet extended release 24 hr 50 mg PO QDAY Service Advisor/Head Baggage Porter Instructions: [facility] Paz Forms: Portal Instructions Follow Up Appointments: @ 11am with Dr. Rogers (Ortho) at the [facility] [phone] Nursing - communicate this appointment with [facility] upon discharge.
[2023-05-12 16:14] LABS: Glucometer 113 mg/dL (74-106)
--- NOTE | 2023-05-12 16:21 | CM.NOTE ---
[facility] called precert completed. Transport set up with [facility] at 5:10 today. Faxed discharge summary, med list, and CRF to [facility]. Updated pt and RN.
--- NOTE | 2023-05-12 16:32 | CM.NOTE ---
Discussed 2nd Notice of Important Message From Medicare, pt denies any questions or concerns.
== END 2023-05-12 17:45 ==
LOC: ER 19:30 → MS 20:04
PROVIDERS: Family Medicine; Nurse Practitioner; Nurse Practitioner Acute Care; Admitting Provider Family Medicine; Emergency Provider Emergency Medicine; Family Provider Internal Medicine; PCP Internal Medicine; Visit Provider Family Medicine
DX: S82.832A Other fracture of upper and lower end of left fibula, initial encounter for closed fracture (principal); S93.402A Sprain of unspecified ligament of left ankle, initial encounter; E11.65 Type 2 diabetes mellitus with hyperglycemia; I48.0 Paroxysmal atrial fibrillation; I10 Essential (primary) hypertension; E11.42 Type 2 diabetes mellitus with diabetic polyneuropathy; E78.00 Pure hypercholesterolemia, unspecified; I87.2 Venous insufficiency (chronic) (peripheral); W18.30XA Fall on same level, unspecified, initial encounter; Z20.822 Contact with and (suspected) exposure to COVID-19; Z99.3 Dependence on wheelchair; Z79.01 Long term (current) use of anticoagulants; Z79.84 Long term (current) use of oral hypoglycemic drugs; Z79.899 Other long term (current) drug therapy; Z90.89 Acquired absence of other organs
CPT/HCPCS: 0202U; 36415; 73590; 73610; 80048; 82550; 82948; 85025; 97161; 97165; 97530; 97535; 99285; G0378

== ENCOUNTER 2023-05-29 10:45 | Outpatient (OUT) | payer MEDICARE, SELFPAY ==
--- NOTE | 2023-05-29 | XR_ITS ---
The [address] [address] Patient Name: ARTEMIO LEAVITT MRN: [id number] date: 1935 Sex: M Assigned Patient Location: [facility] Current Patient Location: [facility] Accession/Order Number: [id number] Exam Date: 05/29/2023 10:57 Report Date: 05/29/2023 12:38 At the request of: BREEZY PRICE Procedure: XR tibia fibula LT 2V PROCEDURE: XR tibia fibula LT 2V COMPARISON: 05/10/2023 HISTORY: LEFT LOWER LEG PAIN FINDINGS: BONES:Stable oblique/spiral fracture of the distal fibular diaphysis at the level of the syndesmosis. The fracture appears stable with no callus formation or significant interval bony bridging. Permeative pattern of the foot suggests osteopenia. No new fracture or dislocation. Stable degenerative changes SOFT TISSUES:Negative. No visible soft tissue swelling. EFFUSION:None visible. OTHER: Intensive vascular calcifications XR/XR tibia fibula LT 2V IMPRESSION: Stable fracture distal fibula Electronically authenticated by: ANDREAS BARGER Date: 05/29/2023 12:38
== END 2023-05-29 10:46 | disposition home or self-care (01) ==
LOC: RAD 10:45
PROVIDERS: Family Provider Internal Medicine; PCP Internal Medicine; Visit Provider Orthopaedic Surgery
DX: S82.62XD Displaced fracture of lateral malleolus of left fibula, subsequent encounter for closed fracture with routine healing (principal)
CPT/HCPCS: 73590

== ENCOUNTER 2023-06-25 16:40 | Emergency (ER) | payer MEDICARE, SELFPAY ==
[2023-06-25] VITALS (39 sets, daily range): BP systolic 72–127; BP diastolic 49–74; PULSE 95–240; RESP 14–41; TEMP 36.7; O2SAT 90–99; BMI 22.4
--- OUTSIDE RECORDS SUMMARY | 2023-06-25 16:45 | XMS_ITS | CCD ---
Author Name Unknown Address [id number] [place] [address] Organization [facility] Care Team Providers Care [employer] Name Role Phone REQUEST, NONE LISTED Consulting Unavaila ble REQUEST, NONE LISTED Admitting Unavaila ble REQUEST, NONE LISTED Attending Unavaila ble REQUEST, NONE LISTED Consulting Unavaila ble REQUEST, NONE LISTED Admitting Unavaila ble REQUEST, DR BEAN LISTED Attending Unavaila ble BECKWITH, DR PÉREZ Attending Unavailable BECKWITH, DR PÉREZ Consulting Unavailable BECKWITH, DR PÉREZ Admitting Unavailable WEST, DR ANDREAS Azul Consulting Unavailable REQUEST, NONE LISTED Consulting Unavaila ble REQUEST, NONE LISTED Admitting Unavaila ble REQUEST, NONE LISTED Attending Unavaila ble Beckwith, MODESTO Pérez Primary Care Provider MD Bouchra Duncan Emergency Provider Al MD Anabella Kinney Admit Provider HILLARY Andrade Other Provider Unavailable DO Alan Doyle Other Provider [phone] MD Demetra Iraheta Other Provider [phone] MD Filipe Floyd Other Provider MD Antoinette Lucas Other Provider MD Brandon Mcgraw Other Provider EMILEE Talbot Other Provider MD Claudia Isaacs Other Provider MD Cl Johnson Other Provider MD Lazara Mann Other Provider MD Mohsen Muniz Attending Provider Dr. Minh Kim Unavailable Unavailable MD Minh Kim Attending Provider [phone] Minh Kim Attending Unavailable Minh Kim Admitting Unavailable Minh Kim Attending Unavailable Beto [place] Primary Care Unavailable Minh Kim Admitting Unavailable Minh Kim Attending Unavailable Beto [place] Primary Care Unavailable Anabella Hayes Admitting Unavailab Mohsen Larkin Attending Unavailab Beto [place] Primary Care Unavailable Tyra Andrade Consulting Unavailable Alan Doyle Consulting Unavailable Demetra Iraheta Consulting Unavailable Filipe Floyd Consulting Unavail able Antoinette Lucas Consulting Unavailable Brandon Mcgraw Consulting Unavailab Elizabeth Riley Consulting Unavailable Claudia Isaacs Consulting Unavailable Cl Johnson Consulting Unavailab Lazara Babcock Consulting Unavailable Demetra Iraheta Attending Unavailable Filipe Doyle Attending Unavailable Demetra Iraheta Attending Unavailable Demetra Iraheta Attending Unavailable BETO BECKWITH Attending Unavailable Medications Current Medications Medication Drug Class(es) Dates Sig (Normalized) Sig (Original) aspirin 81 mg oral tablet (4 sources) Platelet Aggregation Inhibitor, Nonsteroidal Anti-inflammatory Drug Start: 01-01-2022 End: 01-25-2022 take 81 mg by mouth once daily Aspirin Active 81 MG PO Daily January 01, 2022 12:00am 24 hr dilTIAZem hydrochloride 180 mg extended release oral capsule (3 sources) Calcium Channel May Start: 01-03-2022 take 180 mg by mouth once daily Diltiazem Hcl Active 180 MG PO Daily January 03, 2022 12:00am Start: 01-03-2022 take 180 mg by mouth once christen y Diltiazem Hcl Active 180 MG PO Daily January 03, 2022 12:00am furosemide 20 mg oral tablet (4 sources) Loop Diuretic Start: 01-01-2022 End: 01-25-2022 take 20 mg by mouth once daily Furosemide Active 20 MG PO Daily January 01, 2022 12:00am 24 hr metFORMIN hydrochloride 750 mg extended release oral tablet (3 sources) Biguanide Start: 04-05-2021 take 750 mg by mouth once daily Metformin Active 750 MG PO Daily April 05, 2021 1:00am 24 hr metoprolol succinate 50 mg extended release oral tablet (3 sources) beta-Adrenergic May Start: 01-03-2022 take 50 mg by mouth once daily Metoprolol Succinate Active 50 MG PO Daily January 03, 2022 12:00am Start: 01-03-2022 take 50 mg by mouth once daily Metoprolol Succinate Active 50 MG PO Daily January 03, 2022 12:00am simvastatin 40 mg oral tablet (4 sources) HMG-CoA Reductase Inhibitor Start: 04-05-2021 End: 01-11-2022 take 40 mg by mouth once daily Simvastatin Active 40 MG PO Daily April 05, 2021 1:00am Completed/Discontinued Medications Medication Drug Class(es) Dates Sig (Normalized) Sig (Original) acetaminophen 325 mg oral tablet (1 source) Start: 01-16-2022 End: 01-25-2022 take 2 tablets by mouth every four hours as needed for pain Tylenol Tablet 325 MG 2 tablet Tablet Oral Give 2 tablet by mouth every 4 hours as needed for pain 01/16/2022 7:00:00 01/25/2022 17:30:00 Aborted acetaminophen 325 mg / HYDROcodone bitartrate 5 mg oral tablet (3 sources) Opioid Agonist Start: 04-05-2021 End: 01-01-2022 take 1 tablet by mouth three times daily Hydrocodone-Acetam inophen Discontinued 1 TAB PO Three times daily 10 4 April 05, 2021 January 01, 2022 12:04am apixaban 5 mg oral tablet (4 sources) Factor Xa Inhibitor Start: 01-06-2022 End: 01-25-2022 take 1 tablet by mouth once daily Eliquis Tablet 5 MG 1 tablet Tablet Oral Give 1 tablet by mouth every day and evening shift related to PAROXYSMAL ATRIAL FIBRILLATION (I48.0) 01/06/2022 15:00:00 01/25/2022 17:30:00 Aborted Start: 01-03-2022 take 1 tablet by dior th twice daily Apixaban (Eliquis) 5 mg Tablet Active 5 MG PO Twice daily January 03, 2022 12:00am Start: 01-03-2022 take 1 tablet by dior th twice daily Apixaban (Eliquis) 5 mg Tablet Active 5 MG PO Twice daily 60 30 January 03, 2022 12:00am atorvastatin 40 mg oral tablet (1 source) HMG-CoA Reductase Inhibitor Start: 01-12-2022 End: 01-25-2022 take 1 tablet by mouth once daily Atorvastatin Calcium Tablet 40 MG 1 tablet Tablet Oral Give 1 tablet by mouth every day shift related to HYPERLIPIDEMIA, UNSPECIFIED (E78.5) 01/12/2022 7:00:00 01/25/2022 17:30:00 Aborted bisoprolol fumarate 5 mg / hydroCHLOROthiazide 6.25 mg oral tablet (3 sources) Thiazide Diuretic, beta-Adrenergic May Start: 04-05-2021 End: 01-06-2022 take 1 tablet by mouth once daily Bisoprolol-Hydrochl orothiazide Discontinued 1 TAB PO Daily April 05, 2021 1:00am January 06, 2022 12:50pm [place] Oil / [place] balsam (1 source) Standardized Chemical Allergen Start: 01-12-2022 End: 01-25-2022 Venelex Ointment Ointment External Apply to bilat buttock/groin areas topically every shift for skin irritation 01/12/2022 15:00:00 01/25/2022 17:30:00 Aborted dilTIAZem HCl ER Capsule Extended Release 24 Hour 180 MG (1 source) Start: 01-07-2022 End: 01-25-2022 take 1 capsule by mouth once daily dilTIAZem HCl ER Capsule Extended Release 24 Hour 180 MG 1 capsule Capsule Extended Release 24 Hour Oral Give 1 capsule by mouth every day shift related to PAROXYSMAL ATRIAL FIBRILLATION (I48.0) 01/07/2022 7:00:00 01/25/2022 17:30:00 Aborted ferrous sulfate (4 sources) Start: 01-07-2022 End: 01-25-2022 take 1 tablet by mouth once daily Ferrous Sulfate Tablet 325 (65 Fe) MG 1 tablet Tablet Oral Give 1 tablet by mouth every day shift related to IRON DEFICIENCY ANEMIA, UNSPECIFIED (D50.9) 01/07/2022 7:00:00 01/25/2022 17:30:00 Aborted Start: 01-01-2022 take 325 mg by mouth once christen y Ferrous Sulfate Active 325 MG PO Daily January 01, 2022 12:00am loratadine 10 mg oral tablet (1 source) Start: 01-12-2022 End: 01-25-2022 take 1 tablet by mouth once daily in the evening Loratadine Tablet 10 MG 1 tablet Tablet Oral Give 1 tablet by mouth every evening shift for Allergies 01/12/2022 15:00:00 01/25/2022 17:30:00 Aborted metFORMIN HCl ER Tablet Extended Release 24 Hour 750 MG (1 source) Start: 01-07-2022 End: 01-25-2022 metFORMIN HCl ER Tablet Extended Release 24 Hour 750 MG 1 tablet Tablet Extended Release 24 Hour Oral Give 1 tablet by mouth every day shift related to TYPE 2 DIABETES MELLITUS WITHOUT COMPLICATIONS (E11.9) 01/07/2022 7:00:00 01/25/2022 17:30:00 Aborted Metoprolol Succinate ER Tablet Extended Release 24 Hour 50 MG (1 source) Start: 01-07-2022 End: 01-25-2022 take 1 tablet by mouth once daily Metoprolol Succinate ER Tablet Extended Release 24 Hour 50 MG 1 tablet Tablet Extended Release 24 Hour Oral Give 1 tablet by mouth every day shift related to ESSENTIAL (PRIMARY) HYPERTENSION (I10) 01/07/2022 7:00:00 01/25/2022 17:30:00 Aborted Mucinex Allergy Tablet (1 source) Start: 01-14-2022 End: 01-25-2022 take 1 tablet by mouth every eight hours as needed for congestion Mucinex Allergy Tablet 600 mg Tablet Oral Give 600 mg by mouth every 8 hours as needed for Congestion 01/14/2022 12:15:00 01/25/2022 17:30:00 Aborted vitamin B12 (4 sources) Vitamin B12 Start: 01-07-2022 End: 01-25-2022 take 1 tablet by mouth once daily Cyanocobalamin Tablet 1000 MCG 1 tablet Tablet Oral Give 1 tablet by mouth every day shift for Supplement 01/07/2022 7:00:00 01/25/2022 17:30:00 Aborted Start: 01-06-2022 take 1000 ug by mout h once daily in the morning Cyanocobalamin (Vitamin B-12) Active 1000 MCG PO Every morning January 06, 2022 12:00am Start: 09-01-2022 take 1000 ug by mout h once daily in the morning Cyanocobalamin (Vitamin B-12) Active 1000 MCG PO Every morning 0 January 06, 2022 12:00am Problems Active Problems Problem Classification Problem Date Documented Date Episodic/Chronic Cardiac dysrhythmias (9 sources) Atrial fibrillation with rapid ventricular response; Translations: [Unspecified atrial fibrillation] Onset: 01-01-2022 01-01-2022 Chronic Coronary atherosclerosis and other heart disease (1 source) Coronary atherosclerosis and other heart disease Onset: 04-29-2016 Deficiency and other anemia (1 source) Deficiency and other anemia Onset: 04-29-2016 Diabetes mellitus without complication (5 sources) Diabetes mellitus; Translations: [Type 2 diabetes mellitus without complications] Onset: 04-29-2016 01-06-2022 Chronic Disorders of lipid metabolism (5 sources) Hyperlipidemia; Translations: [Hyperlipidemia, unspecified] Onset: 04-29-2016 01-06-2022 Chronic Essential hypertension (11 sources) Essential hypertension; Translations: [Essential (primary) hypertension] Onset: 04-29-2016 01-04-2022 Chronic Nonmalignant breast conditions (5 sources) Unspecified lump in unspecified breast; Translations: [Mastodynia] Onset: 10-16-2020 Episodic Other nervous system disorders (1 source) Difficulty in walking, not elsewhere classified; Translations: [DIFFICULTY IN WALKING, NOT ELSEWHERE CLASSIFIED] Onset: 04-29-2016 Chronic Peripheral and visceral atherosclerosis (1 source) Peripheral vascular disease, unspecified; Translations: [PERIPHERAL VASCULAR DISEASE, UNSPECIFIED] Onset: 01-06-2022 Chronic Sprains and strains (3 sources) Sprain of ankle; Translations: [Sprain of unspecified ligament of left ankle, initial encounter] 04-05-2021 Episodic Unclassified (10 sources) Onset: 04-29-2016 Resolved: 01-06-2022 Past or Other Problems Problem Classification Problem Date Documented Da te Episodic/Chronic Deficiency and other anemia (2 sources) Iron deficiency anemia, unspecified; Translations: [IRON DEFICIENCY ANEMIA, UNSPECIFIED] Onset: 6 Episodic Fracture of neck of femur (hip) (1 source) Displaced intertrochanteric fracture of left femur, subsequent encounter for closed fracture with routine healing; Translations: [DISPLACED INTERTROCHANTERIC FRACTURE OF LEFT FEMUR, SUBSEQUENT ENCOUNTER FOR CLOSED FRACTURE WITH ROUTINE HEALING] Onset: 6 Episodic Immunizations and screening for infectious disease (2 sources) Mantoux: negative; Translations: [Encounter for screening for respiratory tuberculosis] Onset: 6 Resolved: 2 Episodic Malaise and fatigue (4 sources) Physical deconditioning; Translations: [Other malaise] Onset: 2 01-06-2022 Episodic Nonspecific chest pain (7 sources) Chest pain; Translations: [Chest pain, unspecified] Onset: 2 01-01-2022 Episodic Other aftercare (1 source) Encounter for other orthopedic aftercare; Translations: [ENCOUNTER FOR OTHER ORTHOPEDIC AFTERCARE] Onset: 6 Episodic Other connective tissue disease (1 source) Muscle weakness (generalized); Translations: [MUSCLE WEAKNESS (GENERALIZED)] Onset: 6 Episodic Other gastrointestinal disorders (1 source) Constipation, unspecified; Translations: [CONSTIPATION, UNSPECIFIED] Onset: 6 Episodic Other injuries and conditions due to external causes (1 source) History of falling; Translations: [HISTORY OF FALLING] Onset: 6 Episodic Other nervous system disorders (1 source) Walking disability Onset: 6 Resolved: 2 Chronic Other nervous system disorders (1 source) Unsteadiness on feet; Translations: [UNSTEADINESS ON FEET] Onset: 6 Episodic Other screening for suspected conditions (not mental disorders or infectious disease) (4 sources) Cardiovascular stress test abnormal; Translations: [Abnormal result of other cardiovascular function study] Onset: 2 01-06-2022 Episodic Results Test Name Value Interpretation Reference Range Facility Albumin Levelon 01-25-2022 Albumin [Mass/Vol] 2.6 g/dL Low 3.2-5.5 [facility] Comment on above: Order Comment: Diagn osis: I48.0, E11.9, I10 Comment: [id number], LORENA, RM113, , 01/19/22 Result Comment: PERF ORMED BY: [address] [place] [address] PATHOLOGIST [employer] NICHOLE BOLDEN M.D. Performed By: #### D DIMER, BMP, BNP, HS TROP, CKMB, CK, CBC, PTT, PT #### [facility] [address] Albumin [Mass/volume] in Ser um or PlasmaOrdered By: Minh Kim on 01-25-2022 Albumin [Mass/Vol] 2.6 g/dL 3.2-5.5 [facility] Basic Metabolic Panelon 01-07 Anion gap [Moles/Vol] 12.5 mmol/L Normal 6.0-15.0 [facility] Comment on above: Order Comment: Diagn osis: I48.0, E11.9, I10 Comment: [id number] [facility], , 01/19/22 Performed By: #### D DIMER, BMP, BNP, HS TROP, CKMB, CK, CBC, PTT, PT #### [facility] [address] Calcium [Mass/Vol] 8.6 mg/dL Normal 8.2-10.2 [facility] Comment on above: Order Comment: Diagn osis: I48.0, E11.9, I10 Comment: [id number] Pringle [facility], , 01/19/22 Performed By: #### D DIMER, BMP, BNP, HS TROP, CKMB, CK, CBC, PTT, PT #### [facility] [address] Chloride [Moles/Vol] 90 mmol/L Low 95-114 [facility] Comment on above: Order Comment: Diagn osis: I48.0, E11.9, I10 Comment: [id number] Pringle Maranda, , 01/19/22 Performed By: #### D DIMER, BMP, BNP, HS TROP, CKMB, CK, CBC, PTT, PT #### [facility] [address] CO2 [Moles/Vol] 30.8 mmol/L High 22.0-30.0 [facility] Comment on above: Order Comment: Diagn osis: I48.0, E11.9, I10 Comment: [id number], OGSOBEIDAZ, RM113, , 01/19/22 Performed By: #### D DIMER, BMP, BNP, HS TROP, CKMB, CK, CBC, PTT, PT #### [facility] [address] Creatinine [Mass/Vol] 0.52 mg/dL Low 0.64-1.27 [facility] Comment on above: Order Comment: Diagn osis: I48.0, E11.9, I10 Comment: [id number], OGSOBEIDAZ, RM113, , 01/19/22 Performed By: #### D DIMER, BMP, BNP, HS TROP, CKMB, CK, CBC, PTT, PT #### [facility] [address] Estimated GFR ( Uzma > 60 [facility] Comment on above: Order Comment: Diagn osis: I48.0, E11.9, I10 Comment: [id number], LORE[facility], , 01/19/22 Result Comment: GFR estimated reference range: According to KDOQI guidelines, <60 ml/min/1.73m2 is sufficient to diagnose a patient with chronic kidney disease. Performed By: #### D DIMER, BMP, BNP, HS TROP, CKMB, CK, CBC, PTT, PT #### [address] Estimated GFR (Non- Am > 60 [facility] Comment on above: Order Comment: Diagn osis: I48.0, E11.9, I10 Comment: [id number], LORENA, RM113, , 01/19/22 Performed By: #### D DIMER, BMP, BNP, HS TROP, CKMB, CK, CBC, PTT, PT #### [facility] [address] [place] [id number] [facility] Glucose [Mass/Vol] 118 mg/dL High 70-100 [facility] Comment on above: Order Comment: Diagn osis: I48.0, E11.9, I10 Comment: [id number], LORENA, RM113, , 01/19/22 Result Comment: [place] om Glucose Reference Range is dependent on time and content of last meal. Glucose of more than 200 mg/dL in a nonstressed, ambulatory subject supports the diagnosis of Diabetes Mellitus. ADA recommended reference range Performed By: #### D DIMER, BMP, BNP, HS TROP, CKMB, CK, CBC, PTT, PT #### [facility] [address] Potassium [Moles/Vol] 4.3 mmol/L Normal 3.5-5.1 [facility] Comment on above: Order Comment: Diagn osis: I48.0, E11.9, I10 Comment: [id number], OGONTZ, RM113, , 01/19/22 Performed By: #### D DIMER, BMP, BNP, HS TROP, CKMB, CK, CBC, PTT, PT #### [facility] [address] Sodium [Moles/Vol] 129 mmol/L Low 136-146 [facility] Comment on above: Order Comment: Diagn osis: I48.0, E11.9, I10 Comment: [id number], OGONTZ, RM113, , 01/19/22 Performed By: #### D DIMER, BMP, BNP, HS TROP, CKMB, CK, CBC, PTT, PT #### [facility] [address] Urea nitrogen [Mass/Vol] 11 mg/dL Normal 9-23 [facility] Comment on above: Order Comment: Diagn osis: I48.0, E11.9, I10 Comment: [id number], OGONTZ, RM113, , 01/19/22 Performed By: #### D DIMER, BMP, BNP, HS TROP, CKMB, CK, CBC, PTT, PT #### [facility] [address] Basophils Auto (Bld) [#/Vol] Ordered By: Minh Kim on 01-25-2022 Basophils (Bld) [#/Vol] 0.1 10*3/uL 0.0-0.2 [facility] Basophils/100 WBC Auto (Bld) Ordered By: Minh Kim on 01-25-2022 Basophils/100 WBC (Bld) 0.7 % . [facility] Blood hemoglobin measurement (mass/volume)Ordered By: Minh Kim on 01-25-2022 Hemoglobin (Bld) [Mass/Vol] 11.4 g/dL 13.0-17.0 [facility] Blood leukocytes automated c ount (number/volume)Ordered By: Minh Kim on 01-25-2022 WBC (Bld) [#/Vol] 8.2 10*3/uL 4.5-11.0 [facility] Complete Blood Count Auto Di ffon 01-25-2022 Basophils (Bld) [#/Vol] 0.1 10*3/uL Normal 0.0-0.2 [facility] Comment on above: Order Comment: Diagn osis: I48.0, E11.9, I10 Comment: [id number], TRAVIS CARRILLO, , 01/19/22 Result Comment: PERF ORMED BY: [place] [address] PATHOLOGIST VICE PRES[employer] NICHOLE BOLDEN M.D. Performed By: #### D DIMER, BMP, BNP, HS TROP, CKMB, CK, CBC, PTT, PT #### [facility] [address] Basophils/100 WBC (Bld) 0.7 % Normal . [facility] Comment on above: Order Comment: Diagn osis: I48.0, E11.9, I10 Comment: [id number], LORENA RMMaranda, , 01/19/22 Performed By: #### D DIMER, BMP, BNP, HS TROP, CKMB, CK, CBC, PTT, PT #### [facility] [address] Eosinophils (Bld) [#/Vol] 0.1 10*3/uL Normal 0.0-0.45 [facility] Comment on above: Order Comment: Diagn osis: I48.0, E11.9, I10 Comment: [id number], LORENA, RM113, , 01/19/22 Performed By: #### D DIMER, BMP, BNP, HS TROP, CKMB, CK, CBC, PTT, PT #### [address] Eosinophils/100 WBC (Bld) 0.9 % Normal . [facility] Comment on above: Order Comment: Diagn osis: I48.0, E11.9, I10 Comment: [id number], LORENA, [facility], , 01/19/22 Performed By: #### D DIMER, BMP, BNP, HS TROP, CKMB, CK, CBC, PTT, PT #### [address] Erythrocyte distribution width (RBC) [Ratio] 12.8 % Normal 12.0-14.8 [facility] Comment on above: Order Comment: Diagn osis: I48.0, E11.9, I10 Comment: [id number], LORENA, [facility], , 01/19/22 Performed By: #### D DIMER, BMP, BNP, HS TROP, CKMB, CK, CBC, PTT, PT #### [address] Hematocrit (Bld) [Volume fraction] 33.7 % Low 38.8-50.0 [facility] Comment on above: Order Comment: Diagn osis: I48.0, E11.9, I10 Comment: [id number], LORENA, [facility], , 01/19/22 Performed By: #### D DIMER, BMP, BNP, HS TROP, CKMB, CK, CBC, PTT, PT #### [address] Hemoglobin (Bld) [Mass/Vol] 11.4 g/dL Low 13.0-17.0 [facility] Comment on above: Order Comment: Diagn osis: I48.0, E11.9, I10 Comment: [id number], SOBEIDA, [facility], , 01/19/22 Performed By: #### D DIMER, BMP, BNP, HS TROP, CKMB, CK, CBC, PTT, PT #### [address] Lymphocytes (Bld) [#/Vol] 0.6 10*3/uL Low 1.00-4.8 [facility] Comment on above: Order Comment: Diagn osis: I48.0, E11.9, I10 Comment: [id number], OGSOBEIDAZ, RM113, , 01/19/22 Performed By: #### D DIMER, BMP, BNP, HS TROP, CKMB, CK, CBC, PTT, PT #### [address] Lymphocytes/100 WBC (Bld) 7.6 % Normal . [facility] Comment on above: Order Comment: Diagn osis: I48.0, E11.9, I10 Comment: [id number], OGSOBEIDAZ, [facility], , 01/19/22 Performed By: #### D DIMER, BMP, BNP, HS TROP, CKMB, CK, CBC, PTT, PT #### [address] MCH (RBC) [Entitic mass] 31.9 pg Normal 27.5-35.2 [facility] Comment on above: Order Comment: Diagn osis: I48.0, E11.9, I10 Comment: [id number], OGSOBEIDAZ, [facility], , 01/19/22 Performed By: #### D DIMER, BMP, BNP, HS TROP, CKMB, CK, CBC, PTT, PT #### [address] MCV (RBC) [Entitic vol] 94.4 fL Normal 83.5-101 [facility] Comment on above: Order Comment: Diagn osis: I48.0, E11.9, I10 Comment: [id number], OGONTZ, RM113, , 01/19/22 Performed By: #### D DIMER, BMP, BNP, HS TROP, CKMB, CK, CBC, PTT, PT #### [address] Mean Corpuscular HGB Conc 33.8 g/dL Normal 32.5-35.6 [facility] Comment on above: Order Comment: Diagn osis: I48.0, E11.9, I10 Comment: [id number], OGONTZ, RM113, , 01/19/22 Performed By: #### D DIMER, BMP, BNP, HS TROP, CKMB, CK, CBC, PTT, PT #### [facility] [address] Monocytes (Bld) [#/Vol] 0.9 10*3/uL High 0.0-0.8 [facility] Comment on above: Order Comment: Diagn osis: I48.0, E11.9, I10 Comment: [id number], OGONTZ, RM113, , 01/19/22 Performed By: #### D DIMER, BMP, BNP, HS TROP, CKMB, CK, CBC, PTT, PT #### [facility] [address] [place] [address] Monocytes/100 WBC (Bld) 10.7 % Normal . [facility] Comment on above: Order Comment: Diagn osis: I48.0, E11., I10 Comment: [id number], OGONTZ, RM113, , 01/19/22 Performed By: #### D DIMER, BMP, BNP, HS TROP, CKMB, CK, CBC, PTT, PT #### [facility] [address] [place] [address] [place] Neutrophils (Bld) [#/Vol] 6.6 10*3/uL Normal 1.8-7.7 [facility] Comment on above: Order Comment: Diagn osis: I48.0, E11.9, I10 Comment: [id number], OGONTZ, RM113, , 01/19/22 Performed By: #### D DIMER, BMP, BNP, HS TROP, CKMB, CK, CBC, PTT, PT #### [facility] [address] Neutrophils/100 WBC (Bld) 80.1 % Normal . [facility] Comment on above: Order Comment: Diagn osis: I48.0, E11.9, I10 Comment: [id number], OGONTZ, RM113, , 01/19/22 Performed By: #### D DIMER, BMP, BNP, HS TROP, CKMB, CK, CBC, PTT, PT #### [facility] [address] Nucleated RBC/100 WBC (Bld) [Ratio] 0.1 % Normal 0-0.5 [facility] Comment on above: Order Comment: Diagn osis: I48.0, E11.9, I10 Comment: [id number], OGONTZ, RM113, , 01/19/22 Performed By: #### D DIMER, BMP, BNP, HS TROP, CKMB, CK, CBC, PTT, PT #### [facility] [address] Platelet mean volume (Bld) [Entitic vol] 9.0 fL Normal 6.6-10.1 [facility] Comment on above: Order Comment: Diagn osis: I48.0, E11., I10 Comment: [id number], OGONTZ, RM113, , 01/19/22 Performed By: #### D DIMER, BMP, BNP, HS TROP, CKMB, CK, CBC, PTT, PT #### [address] Platelets (Bld) [#/Vol] 401 10*3/uL Normal 150-450 [facility] Comment on above: Order Comment: Diagn osis: I48.0, E11.9, I10 Comment: [id number], OGONTZ, RM113, , 01/19/22 Performed By: #### D DIMER, BMP, BNP, HS TROP, CKMB, CK, CBC, PTT, PT #### [address] RBC (Bld) [#/Vol] 3.57 10*6/uL Low 3.90-5.60 [facility] Comment on above: Order Comment: Diagn osis: I48.0, E11.9, I10 Comment: [id number], OGONTZ, RM113, , 01/19/22 Performed By: #### D DIMER, BMP, BNP, HS TROP, CKMB, CK, CBC, PTT, PT #### [address] WBC (Bld) [#/Vol] 8.2 10*3/uL Normal 4.5-11.0 [facility] Comment on above: Order Comment: Diagn osis: I48.0, E11.9, I10 Comment: [id number], LORENA, RM113, HM, 01/19/22 Performed By: #### D DIMER, BMP, BNP, HS TROP, CKMB, CK, CBC, PTT, PT #### [facility] [address] Creatinine and Glomerular fi ltration rate.predicted panel (S/P/Bld)Ordered By: Minh Kim on 01-25-2022 Creatinine [Mass/Vol] 0.52 mg/dL 0.64-1.27 [facility] Eosinophils Auto (Bld) [#/Vo l]Ordered By: Minh Kim on 01-25-2022 Eosinophils (Bld) [#/Vol] 0.1 10*3/uL 0.0-0.45 [facility] Eosinophils/100 WBC Auto (Bl d)Ordered By: Minh Kim on 01-25-2022 Eosinophils/100 WBC (Bld) 0.9 % . [facility] Erythrocyte distribution wid th Auto (RBC) [Ratio]Ordered By: Minh Kim on 01-25-2022 Erythrocyte distribution width (RBC) [Ratio] 12.8 % 12.0-14.8 [facility] Estimated glomerular filtrat ion rate (GFR) non- AmericanOrdered By: Minh Kim on 01-25-2022 GFR/1.73 sq M.predicted among non-blacks MDRD (S/P/Bld) [Vol rate/Area] > 60 mL/Min [facility] Hematocrit Auto (Bld) [Volum e fraction]Ordered By: Minh Kim on 01-25-2022 Hematocrit (Bld) [Volume fraction] 33.7 % 38.8-50.0 [facility] Laboratory - Hematology and Cell countsOrdered By: Minh Kim on 01-25-2022 Nucleated RBC/100 WBC (Bld) [Ratio] 0.1 % 0-0.5 [facility] Lymphocytes Auto (Bld) [#/Vo l]Ordered By: Minh Kim on 01-25-2022 Lymphocytes (Bld) [#/Vol] 0.6 10*3/uL 1.00-4.8 [facility] Lymphocytes/100 WBC Auto (Bl d)Ordered By: Minh Kim on 01-25-2022 Lymphocytes/100 WBC (Bld) 7.6 % . [facility] MCH Auto (RBC) [Entitic mass ]Ordered By: Minh Kim on 01-25-2022 MCH (RBC) [Entitic mass] 31.9 pg 27.5-35.2 [facility] MCHC Auto (RBC) [Mass/Vol]Or dered By: Minh Kim on 01-25-2022 MCHC (RBC) [Mass/Vol] 33.8 g/dL 32.5-35.6 [facility] MCV Auto (RBC) [Entitic vol] Ordered By: Minh Kim on 01-25-2022 MCV (RBC) [Entitic vol] 94.4 fL 83.5-101 [facility] Monocytes Auto (Bld) [#/Vol] Ordered By: Minh Kim on 01-25-2022 Monocytes (Bld) [#/Vol] 0.9 10*3/uL 0.0-0.8 [facility] Monocytes/100 WBC Auto (Bld) Ordered By: Minh Kim on 01-25-2022 Monocytes/100 WBC (Bld) 10.7 % . [facility] Neutrophils Auto (Bld) [#/Vo l]Ordered By: Minh Kim on 01-25-2022 Neutrophils (Bld) [#/Vol] 6.6 10*3/uL 1.8-7.7 [facility] Neutrophils/100 WBC Auto (Bl d)Ordered By: Minh Kim on 01-25-2022 Neutrophils/100 WBC (Bld) 80.1 % . [facility] No Panel InformationOrdered By: Minh Kim on 01-25-2022 Estimated GFR () > 60 mL/Min [facility] Comment on above: GFR estimated refere nce range: According to KDOQI guidelines, <60 ml/min/1.73m2 is sufficient to diagnose a patient with chronic kidney disease. Pharmacy Creatinine Clearance (Chem N/A [facility] Platelet mean volume Auto (B ld) [Entitic vol]Ordered By: Minh Kim on 01-25-2022 Platelet mean volume (Bld) [Entitic vol] 9.0 fL 6.6-10.1 [facility] Platelets Auto (Bld) [#/Vol] Ordered By: Minh Kim on 01-25-2022 Platelets (Bld) [#/Vol] 401 10*3/uL 150-450 [facility] RBC Auto (Bld) [#/Vol]Ordere d By: Minh Kim on 01-25-2022 RBC (Bld) [#/Vol] 3.57 10*6/uL 3.90-5.60 [facility] Serum or plasma anion gap de terminationOrdered By: Minh Kim on 01-25-2022 Anion gap [Moles/Vol] 12.5 mmol/L 6.0-15.0 [facility] Serum or plasma calcium babita urement (mass/volume)Ordered By: Minh Kim on 01-25-2022 Calcium [Mass/Vol] 8.6 mg/dL 8.2-10.2 [facility] Serum or plasma chloride sabrina surement (moles/volume)Ordered By: Minh Kim on 01-25-2022 Chloride [Moles/Vol] 90 mmol/L 95-114 [facility] Serum or plasma glucose babita urement (mass/volume)Ordered By: Minh Kim on 01-25-2022 Glucose [Mass/Vol] 118 mg/dL 70-100 [facility] Comment on above: ADA recommended refe rence range Random Glucose Reference Range is dependent on time and content of last meal. Glucose of more than 200 mg/dL in a nonstressed, ambulatory subject supports the diagnosis of Diabetes Mellitus. Serum or plasma potassium me asurement (moles/volume)Ordered By: Minh Kim on 01-25-2022 Potassium [Moles/Vol] 4.3 mmol/L 3.5-5.1 [facility] Serum or plasma sodium measu rement (moles/volume)Ordered By: Minh Kim on 01-25-2022 Sodium [Moles/Vol] 129 mmol/L 136-146 [facility] Serum or plasma total carbon dioxide measurement (moles/volume)Ordered By: Minh Kim on 01-25-2022 CO2 [Moles/Vol] 30.8 mmol/L 22.0-30.0 [facility] Serum or plasma urea nitroge n measurement (mass/volume)Ordered By: Minh Kim on 01-25-2022 Urea nitrogen [Mass/Vol] 11 mg/dL - [facility] A1C with Estimated Average G luon 01-11-2022 Glucose [Mass/Vol] 146 mg/dL Normal [facility] Comment on above: Order Comment: Diagn osis: D50.9, E11.9, E78.5 Comment: LORENA Contreras [id number], RISHI, 01/07/22 Result Comment: PERF ORMED BY: [place] [address] PATHOLOGIST [employer] NICHOLE BOLDEN M.D. Performed By: #### D DIMER, BMP, BNP, HS TROP, CKMB, CK, CBC, PTT, PT #### [facility] [address] HbA1c (Bld) [Mass fraction] 6.7 % High 4.3-5.6 [facility] Comment on above: Order Comment: Diagn osis: D50.9, E11.9, E78.5 Comment: LOERNA Contreras [id number], , 01/07/22 Result Comment: Incr eased risk for diabetes: 5.7 - 6.4 diabetes: >6.4 glycemic control for adults with diabetes: <7.0 Performed By: #### D DIMER, BMP, BNP, HS TROP, CKMB, CK, CBC, PTT, PT #### [facility] [address] [place] [id number] [place] Albumin Levelon 01-11-2022 Albumin [Mass/Vol] 2.8 g/dL Low 3.2-5.5 [facility] Comment on above: Order Comment: Diagn osis: D50.9, E11.9, E78.5 Comment: LORENA Contreras [id number], , 01/07/22 Result Comment: PERF ORMED BY: [place] [address] PATHOLOGIST [employer] NICHOLE BOLDEN M.D. Performed By: #### D DIMER, BMP, BNP, HS TROP, CKMB, CK, CBC, PTT, PT #### [address] [address] [facility] Automated basophil %Ordered By: Minh Kim on 01-11-2022 Basophils/100 WBC (Bld) 0.8 % Normal . [facility] Comment on above: Order Comment: Diagn osis: D50.9, E11.9, E78.5 Comment: LORENA Contreras Maranda, , 01/07/22 Performed By: #### D DIMER, BMP, BNP, HS TROP, CKMB, CK, CBC, PTT, PT #### [place] [id number] [facility] Automated basophil countOrde red By: Minh Kim on 01-11-2022 Basophils (Bld) [#/Vol] 0.1 10*3/uL Normal 0.0-0.2 [facility] Comment on above: Order Comment: Diagn osis: D50.9, E11.9, E78.5 Comment: LORENA Contreras [id number], , 01/07/22 Result Comment: PERF ORMED BY: [place] [address] PATHOLOGIST [employer] NICHOLE BOLDEN M.D. Performed By: #### D DIMER, BMP, BNP, HS TROP, CKMB, CK, CBC, PTT, PT #### [address] [address] [facility] Automated blood lymphocyte c ount (number/volume)Ordered By: Minh Kim on 01-11-2022 Lymphocytes (Bld) [#/Vol] 0.6 10*3/uL Low 1.00-4.8 [facility] Comment on above: Order Comment: Diagn osis: D50.9, E11.9, E78.5 Comment: LORENA Contreras [id number], , 01/07/22 Performed By: #### D DIMER, BMP, BNP, HS TROP, CKMB, CK, CBC, PTT, PT #### [facility] [address] [place] [address] Automated blood lymphocyte c ount as percentage of total leukocytesOrdered By: Minh Kim on 01-11-2022 Lymphocytes/100 WBC (Bld) 8.0 % Normal . [facility] Comment on above: Order Comment: Diagn osis: D50.9, E11.9, E78.5 Comment: [id number], LORENA, RM113, , 01/07/22 Performed By: #### D DIMER, BMP, BNP, HS TROP, CKMB, CK, CBC, PTT, PT #### [address] Automated blood monocyte cou ntOrdered By: Minh Kim on 01-11-2022 Monocytes (Bld) [#/Vol] 1.1 10*3/uL High 0.0-0.8 [facility] Comment on above: Order Comment: Diagn osis: D50.9, E11.9, E78.5 Comment: [id number], LORENA, RM113, , 01/07/22 Performed By: #### D DIMER, BMP, BNP, HS TROP, CKMB, CK, CBC, PTT, PT #### [address] Automated blood platelet cou nt (count/volume)Ordered By: Minh Kim on 01-11-2022 Platelets (Bld) [#/Vol] 383 10*3/uL Normal 150-450 [facility] Comment on above: Order Comment: Diagn osis: D50.9, E11.9, E78.5 Comment: [id number], LORENA, RM113, , 01/07/22 Performed By: #### D DIMER, BMP, BNP, HS TROP, CKMB, CK, CBC, PTT, PT #### [address] Automated blood platelet sabrina n volume measurementOrdered By: Minh Kim on 01-11-2022 Platelet mean volume (Bld) [Entitic vol] 9.0 fL Normal 6.6-10.1 [facility] Comment on above: Order Comment: Diagn osis: D50.9, E11., E78. Comment: [id number], OGONTZ, RM113, , 01/07/22 Performed By: #### D DIMER, BMP, BNP, HS TROP, CKMB, CK, CBC, PTT, PT #### [address] Automated eosinophil %Ordere d By: Minh Kim on 01-11-2022 Eosinophils/100 WBC (Bld) 1.2 % Normal . [facility] Comment on above: Order Comment: Diagn osis: D50., E11., E78. Comment: [id number], OGONTZ, RM113, , 01/07/22 Performed By: #### D DIMER, BMP, BNP, HS TROP, CKMB, CK, CBC, PTT, PT #### [address] Automated eosinophil countOr dered By: Minh Kim on 01-11-2022 Eosinophils (Bld) [#/Vol] 0.1 10*3/uL Normal 0.0-0.45 [facility] Comment on above: Order Comment: Diagn osis: D5., E11., E78. Comment: [id number], OGSOBEIDAZ, RM113, , 01/07/22 Performed By: #### D DIMER, BMP, BNP, HS TROP, CKMB, CK, CBC, PTT, PT #### [address] Automated erythrocyte distri bution width ratioOrdered By: Minh Kim on 01-11-2022 Erythrocyte distribution width (RBC) [Ratio] 12.9 % Normal 12.0-14.8 [facility] Comment on above: Order Comment: Diagn osis: D50., E11., E78. Comment: [id number], OGONTZ, RM113, , 01/07/22 Performed By: #### D DIMER, BMP, BNP, HS TROP, CKMB, CK, CBC, PTT, PT #### [facility] [address] [place] [id number] [facility] Automated erythrocyte mean c orpuscular hemoglobin (mass per erythrocyte)Ordered By: Minh Kim on 01-11-2022 MCH (RBC) [Entitic mass] 32.6 pg Normal 27.5-35.2 [facility] Comment on above: Order Comment: Diagn osis: D50.9, E11.9, E78.5 Comment: [id number], OGONTZ, RM113, , 01/07/22 Performed By: #### D DIMER, BMP, BNP, HS TROP, CKMB, CK, CBC, PTT, PT #### [facility] [address] [place] [phone] [facility] Automated erythrocyte mean c orpuscular volumeOrdered By: Minh Kim on 01-11-2022 MCV (RBC) [Entitic vol] 96.5 fL Normal 83.5-101 [facility] Comment on above: Order Comment: Diagn osis: D50.9, E11.9, E78.5 Comment: [id number], OGSOBEIDAZ, RM113, , 01/07/22 Performed By: #### D DIMER, BMP, BNP, HS TROP, CKMB, CK, CBC, PTT, PT #### [facility] [address] [place] [phone] [facility] Automated monocyte %Ordered By: Minh Kim on 01-11-2022 Monocytes/100 WBC (Bld) 14.8 % Normal . [facility] Comment on above: Order Comment: Diagn osis: D50.9, E11.9, E78.5 Comment: [id number], OGONTZ, RM113, , 01/07/22 Performed By: #### D DIMER, BMP, BNP, HS TROP, CKMB, CK, CBC, PTT, PT #### [facility] [address] [place] [phone] [facility] Automated neutrophil %Ordere d By: Minh Kim on 01-11-2022 Neutrophils/100 WBC (Bld) 75.2 % Normal . [facility] Comment on above: Order Comment: Diagn osis: D50.9, E11.9, E78.5 Comment: [id number], OGONTZ, RM113, , 01/07/22 Performed By: #### D DIMER, BMP, BNP, HS TROP, CKMB, CK, CBC, PTT, PT #### [facility] [address] Basic Metabolic Panelon 09-0 Anion gap [Moles/Vol] 13.7 mmol/L Normal 6.0-15.0 [facility] Comment on above: Order Comment: Diagn osis: D50.9, E11.9, E78.5 Comment: [id number], OGCORTNEY, RM113, , 01/07/22 Performed By: #### D DIMER, BMP, BNP, HS TROP, CKMB, CK, CBC, PTT, PT #### [facility] [address] Calcium [Mass/Vol] 8.7 mg/dL Normal 8.2-10.2 [facility] Comment on above: Order Comment: Diagn osis: D50.9, E11.9, E78.5 Comment: [id number], LORENA, RM113, , 01/07/22 Performed By: #### D DIMER, BMP, BNP, HS TROP, CKMB, CK, CBC, PTT, PT #### [address] Chloride [Moles/Vol] 93 mmol/L Low 95-114 [facility] Comment on above: Order Comment: Diagn osis: D50.9, E11.9, E78.5 Comment: [id number], KAYCEEZ, RM113, , 01/07/22 Performed By: #### D DIMER, BMP, BNP, HS TROP, CKMB, CK, CBC, PTT, PT #### [facility] [address] CO2 [Moles/Vol] 28.2 mmol/L Normal 22.0-30.0 [facility] Comment on above: Order Comment: Diagn osis: D50.9, E11.9, E78.5 Comment: [id number], OGSOBEIDAZ, RM113, , 01/07/22 Performed By: #### D DIMER, BMP, BNP, HS TROP, CKMB, CK, CBC, PTT, PT #### [facility] [address] [place] [address] [facility] Creatinine [Mass/Vol] 0.55 mg/dL Low 0.64-1.27 [facility] Comment on above: Order Comment: Diagn osis: D50.9, E11.9, E78.5 Comment: [id number], TRAVIS CARRILLO, , 01/07/22 Performed By: #### D DIMER, BMP, BNP, HS TROP, CKMB, CK, CBC, PTT, PT #### [facility] [address] [place] [address] [facility] Estimated GFR ( Uzma > 60 [facility] Comment on above: Order Comment: Diagn osis: D50.9, E11.9, E78.5 Comment: LORENA Contreras [id number], , 01/07/22 Result Comment: GFR estimated reference range: According to KDOQI guidelines, <60 ml/min/1.73m2 is sufficient to diagnose a patient with chronic kidney disease. Performed By: #### D DIMER, BMP, BNP, HS TROP, CKMB, CK, CBC, PTT, PT #### [facility] [address] [place] [phone] [facility] Estimated GFR (Non- Am > 60 [facility] Comment on above: Order Comment: Diagn osis: D50.9, E11.9, E78.5 Comment: [id number] Harmon RM113, , 01/07/22 Performed By: #### D DIMER, BMP, BNP, HS TROP, CKMB, CK, CBC, PTT, PT #### [facility] [address] [place] [address] [facility] Glucose [Mass/Vol] 133 mg/dL High 70-100 [facility] Comment on above: Order Comment: Diagn osis: D50.9, E11.9, E78.5 Comment: LORENA Contreras RM113, , 01/07/22 Result Comment: [place] Glucose Reference Range is dependent on time and content of last meal. Glucose of more than 200 mg/dL in a nonstressed, ambulatory subject supports the diagnosis of Diabetes Mellitus. ADA recommended reference range Performed By: #### D DIMER, BMP, BNP, HS TROP, CKMB, CK, CBC, PTT, PT #### [facility] [address] Potassium [Moles/Vol] 3.9 mmol/L Normal 3.5-5.1 [facility] Comment on above: Order Comment: Diagn osis: D50.9, E11.9, E78.5 Comment: [id number], LORENA, RMMaranda, , 01/07/22 Performed By: #### D DIMER, BMP, BNP, HS TROP, CKMB, CK, CBC, PTT, PT #### [facility] [address] Sodium [Moles/Vol] 131 mmol/L Low 136-146 [facility] Comment on above: Order Comment: Diagn osis: D50.9, E11.9, E78.5 Comment: [id number], LORENA, RMMaranda, , 01/07/22 Performed By: #### D DIMER, BMP, BNP, HS TROP, CKMB, CK, CBC, PTT, PT #### [facility] [address] Urea nitrogen [Mass/Vol] 13 mg/dL Normal 9-23 [facility] Comment on above: Order Comment: Diagn osis: D50.9, E11.9, E78.5 Comment: [id number], LORENA RMMaranda, , 01/07/22 Performed By: #### D DIMER, BMP, BNP, HS TROP, CKMB, CK, CBC, PTT, PT #### [facility] [address] Blood erythrocytes automated count (number/volume)Ordered By: Minh Kim on 01-11-2022 RBC (Bld) [#/Vol] 3.47 10*6/uL Low 3.90-5.60 [facility] Comment on above: Order Comment: Diagn osis: D50.9, E11.9, E78.5 Comment: [id number], LORENA, RMMaranda, , 01/07/22 Performed By: #### D DIMER, BMP, BNP, HS TROP, CKMB, CK, CBC, PTT, PT #### [address] Blood hemoglobin measurement (mass/volume)Ordered By: Minh Kim on 01-11-2022 Hemoglobin (Bld) [Mass/Vol] 11.3 g/dL Low 13.0-17.0 [facility] Comment on above: Order Comment: Diagn osis: D50.9, E11.9, E78.5 Comment: [id number], OGONTZ, RM113, , 01/07/22 Performed By: #### D DIMER, BMP, BNP, HS TROP, CKMB, CK, CBC, PTT, PT #### [address] Blood leukocytes automated c ount (number/volume)Ordered By: Minh Kim on 01-11-2022 WBC (Bld) [#/Vol] 7.5 10*3/uL Normal 4.5-11.0 [facility] Comment on above: Order Comment: Diagn osis: D50.9, E11.9, E78.5 Comment: [id number], OGONTZ, RM113, , 01/07/22 Performed By: #### D DIMER, BMP, BNP, HS TROP, CKMB, CK, CBC, PTT, PT #### [address] Blood neutrophil count by au tomated method (number/volume)Ordered By: Minh Kim on 01-11-2022 Neutrophils (Bld) [#/Vol] 5.7 10*3/uL Normal 1.8-7.7 [facility] Comment on above: Order Comment: Diagn osis: D50.9, E11.9, E78.5 Comment: [id number], OGONTZ, RM113, , 01/07/22 Performed By: #### D DIMER, BMP, BNP, HS TROP, CKMB, CK, CBC, PTT, PT #### [address] Body fluid albumin measureme nt (mass/volume)Ordered By: Minh Kim on 01-11-2022 Albumin (Body fld) [Mass/Vol] 2.8 g/dL 3.2-5.5 [facility] Complete Blood Count Auto Di ffon 01-11-2022 Mean Corpuscular HGB Conc 33.8 g/dL Normal 32.5-35.6 [facility] Comment on above: Order Comment: Diagn osis: D50.9, E11.9, E78.5 Comment: [id number], LORENA, RM113, , 01/07/22 Performed By: #### D DIMER, BMP, BNP, HS TROP, CKMB, CK, CBC, PTT, PT #### [facility] [address] Complete Blood Count Auto Di ffOrdered By: Minh Kim on 01-11-2022 Nucleated RBC/100 WBC (Bld) [Ratio] 0.1 % Normal 0-0.5 [facility] Comment on above: Order Comment: Diagn osis: D50.9, E11.9, E78.5 Comment: [id number], LORENA, RM113, , 01/07/22 Performed By: #### D DIMER, BMP, BNP, HS TROP, CKMB, CK, CBC, PTT, PT #### [facility] [address] Creatinine and Glomerular fi ltration rate.predicted panel (S/P/Bld)Ordered By: Minh Kim on 01-11-2022 Creatinine [Mass/Vol] 0.55 mg/dL 0.64-1.27 [facility] Estimated glomerular filtrat ion rate (GFR) non- AmericanOrdered By: Minh Kim on 01-11-2022 GFR/1.73 sq M.predicted among non-blacks MDRD (S/P/Bld) [Vol rate/Area] > 60 mL/Min [facility] Glucose mean value [Mass/vol ume] in Blood Estimated from glycated hemoglobinOrdered By: Minh Kim on 01-11-2022 Average glucose Estimated from glycated hemoglobin (Bld) [Mass/Vol] 146 mg/dL [facility] Hematocrit [Volume Fraction] of Blood by Automated countOrdered By: Minh Kim on 01-11-2022 Hematocrit (Bld) [Volume fraction] 33.5 % Low 38.8-50.0 [facility] Comment on above: Order Comment: Diagn osis: D50.9, E11.9, E78.5 Comment: [id number], LORENA, RM113, HM, 01/07/22 Performed By: #### D DIMER, BMP, BNP, HS TROP, CKMB, CK, CBC, PTT, PT #### [facility] [address] Hemoglobin A1c percentageOrd ered By: Minh Kim on 01-11-2022 HbA1c (Bld) [Mass fraction] 6.7 % 4.3-5.6 [facility] Comment on above: Increased risk for d iabetes: 5.7 - 6.4 diabetes: >6.4 glycemic control for adults with diabetes: <7.0 MCHC Auto (RBC) [Mass/Vol]Or dered By: Minh Kim on 01-11-2022 MCHC (RBC) [Mass/Vol] 33.8 g/dL 32.5-35.6 [facility] No Panel InformationOrdered By: Minh Kim on 01-11-2022 Estimated GFR () > 60 mL/Min [facility] Comment on above: GFR estimated refere nce range: According to KDOQI guidelines, <60 ml/min/1.73m2 is sufficient to diagnose a patient with chronic kidney disease. Pharmacy Creatinine Clearance (Chem N/A [facility] Serum or plasma anion gap de terminationOrdered By: Minh Kim on 01-11-2022 Anion gap [Moles/Vol] 13.7 mmol/L 6.0-15.0 [facility] Serum or plasma calcium babita urement (mass/volume)Ordered By: Minh Kim on 01-11-2022 Calcium [Mass/Vol] 8.7 mg/dL 8.2-10.2 [facility] Serum or plasma chloride sabrina surement (moles/volume)Ordered By: Minh Kim on 01-11-2022 Chloride [Moles/Vol] 93 mmol/L 95-114 [facility] Serum or plasma glucose babita urement (mass/volume)Ordered By: Minh Kim on 01-11-2022 Glucose [Mass/Vol] 133 mg/dL 70-100 [facility] Comment on above: ADA recommended refe rence range Random Glucose Reference Range is dependent on time and content of last meal. Glucose of more than 200 mg/dL in a nonstressed, ambulatory subject supports the diagnosis of Diabetes Mellitus. Serum or plasma potassium me asurement (moles/volume)Ordered By: Minh Kim on 01-11-2022 Potassium [Moles/Vol] 3.9 mmol/L 3.5-5.1 [facility] Serum or plasma sodium measu rement (moles/volume)Ordered By: Minh Kim on 01-11-2022 Sodium [Moles/Vol] 131 mmol/L 136-146 [facility] Serum or plasma total carbon dioxide measurement (moles/volume)Ordered By: Minh Kim on 01-11-2022 CO2 [Moles/Vol] 28.2 mmol/L 22.0-30.0 [facility] Serum or plasma urea nitroge n measurement (mass/volume)Ordered By: Minh Kim on 01-11-2022 Urea nitrogen [Mass/Vol] 13 mg/dL 9-23 [facility] Bacterial blood cultureOrder ed By: Ronit Caruso on 01-06-2022 Bacteria identified Cx Nom (Bld) NO GROWTH 5 DAYS [facility] Glucose Glucometer (BldC) [M ass/Vol]Ordered By: Mohsen Muniz on 01-05-2022 Glucose [Mass/Vol] 147 mg/dL [facility] Comment on above: Random Glucose Refer ence Range is dependent on time and content of last meal. Glucose of more than 200 mg/dL in a nonstressed, ambulatory subject supports the diagnosis of Diabetes Mellitus. Glucose Poct Glucometerson 0 01-05-2022 Commemt1 Glu2: Cleaned Meter Normal [facility] Comment on above: Result Comment: PERF ORMED BY: [facility] [address] [place] [address] PATHOLOGIST [employer] NICHOLE BOLDEN M.D. Performed By: #### D DIMER, BMP, BNP, HS TROP, CKMB, CK, CBC, PTT, PT #### [facility] [address] Glucose [Mass/Vol] 147 mg/dL Normal [facility] Comment on above: Result Comment: [place] [facility] Glucose Reference Range is dependent on time and content of last meal. Glucose of more than 200 mg/dL in a nonstressed, ambulatory subject supports the diagnosis of Diabetes Mellitus. Performed By: #### D DIMER, BMP, BNP, HS TROP, CKMB, CK, CBC, PTT, PT #### [facility] [address] Glucose [Mass/Vol] 153 mg/dL Normal [facility] Comment on above: Result Comment: [place] om Glucose Reference Range is dependent on time and content of last meal. Glucose of more than 200 mg/dL in a nonstressed, ambulatory subject supports the diagnosis of Diabetes Mellitus. PERFORMED BY: [place] [address] PATHOLOGIST [employer] NICHOLE BOLDEN M.D. Performed By: #### D DIMER, BMP, BNP, HS TROP, CKMB, CK, CBC, PTT, PT #### [address] Glucose [Mass/Vol] 127 mg/dL Normal [facility] Comment on above: Result Comment: [place] Glucose Reference Range is dependent on time and content of last meal. Glucose of more than 200 mg/dL in a nonstressed, ambulatory subject supports the diagnosis of Diabetes Mellitus. PERFORMED BY: [place] [address] PATHOLOGIST [employer] NICHOLE BOLDEN M.D. Performed By: #### D DIMER, BMP, BNP, HS TROP, CKMB, CK, CBC, PTT, PT #### [address] No Panel InformationOrdered By: Mohsen Muniz on 01-05-2022 Bedside Glucose Comment Glu2: cleaned meter [facility] Albumin [Mass/volume] in Ser um or PlasmaOrdered By: Mohsen Muniz on 01-04-2022 Albumin [Mass/Vol] 3.0 g/dL 3.2-5.5 [facility] Basophils Auto (Bld) [#/Vol] Ordered By: Mohsen Ionbaldo on 01-04-2022 Basophils (Bld) [#/Vol] 0.0 10*3/uL 0.0-0.2 [facility] Basophils/100 WBC Auto (Bld) Ordered By: Mohsen Doscottbaldo on 01-04-2022 Basophils/100 WBC (Bld) 0.5 % . F [facility] Blood hemoglobin measurement (mass/volume)Ordered By: Mohsen [facility] on 01-04-2022 Hemoglobin (Bld) [Mass/Vol] 12.3 g/dL 13.0-17.0 [facility] Blood leukocytes automated c ount (number/volume)Ordered By: Mohsen Doscottlenne on 01-04-2022 WBC (Bld) [#/Vol] 6.1 10*3/uL 4.5-11.0 [facility] Complete Blood Count Auto Di ffon 01-04-2022 Basophils (Bld) [#/Vol] 0.0 10*3/uL Normal 0.0-0.2 [facility] Comment on above: Result Comment: PERF ORMED BY: [place] [address] PATHOLOGIST VICE PRESIDENT [employer] NICHOLE BOLDEN M.D. Performed By: #### D DIMER, BMP, BNP, HS TROP, CKMB, CK, CBC, PTT, PT #### [facility] [address] Basophils/100 WBC (Bld) 0.5 % Normal . [facility] Comment on above: Performed By: #### D DIMER, BMP, BNP, HS TROP, CKMB, CK, CBC, PTT, PT #### [facility] [address] Eosinophils (Bld) [#/Vol] 0.1 10*3/uL Normal 0.0-0.45 [facility] Comment on above: Performed By: #### D DIMER, BMP, BNP, HS TROP, CKMB, CK, CBC, PTT, PT #### [address] Eosinophils/100 WBC (Bld) 2.3 % Normal . [facility] Comment on above: Performed By: #### D DIMER, BMP, BNP, HS TROP, CKMB, CK, CBC, PTT, PT #### [address] Erythrocyte distribution width (RBC) [Ratio] 13.2 % Normal 12.0-14.8 [facility] Comment on above: Performed By: #### D DIMER, BMP, BNP, HS TROP, CKMB, CK, CBC, PTT, PT #### [address] Hematocrit (Bld) [Volume fraction] 36.2 % Low 38.8-50.0 [facility] Comment on above: Performed By: #### D DIMER, BMP, BNP, HS TROP, CKMB, CK, CBC, PTT, PT #### [address] Hemoglobin (Bld) [Mass/Vol] 12.3 g/dL Low 13.0-17.0 [facility] Comment on above: Performed By: #### D DIMER, BMP, BNP, HS TROP, CKMB, CK, CBC, PTT, PT #### [address] Lymphocytes (Bld) [#/Vol] 0.5 10*3/uL Low 1.00-4.8 [facility] Comment on above: Performed By: #### D DIMER, BMP, BNP, HS TROP, CKMB, CK, CBC, PTT, PT #### [address] Lymphocytes/100 WBC (Bld) 8.6 % Normal . [facility] Comment on above: Performed By: #### D DIMER, BMP, BNP, HS TROP, CKMB, CK, CBC, PTT, PT #### [address] MCH (RBC) [Entitic mass] 32.9 pg Normal 27.5-35.2 [facility] Comment on above: Performed By: #### D DIMER, BMP, BNP, HS TROP, CKMB, CK, CBC, PTT, PT #### [facility] [address] MCV (RBC) [Entitic vol] 96.7 fL Normal 83.5-101 [facility] Comment on above: Performed By: #### D DIMER, BMP, BNP, HS TROP, CKMB, CK, CBC, PTT, PT #### [facility] [address] Mean Corpuscular HGB Conc 34.0 g/dL Normal 32.5-35.6 [facility] Comment on above: Performed By: #### D DIMER, BMP, BNP, HS TROP, CKMB, CK, CBC, PTT, PT #### [address] Monocytes (Bld) [#/Vol] 0.8 10*3/uL Normal 0.0-0.8 [facility] Comment on above: Performed By: #### D DIMER, BMP, BNP, HS TROP, CKMB, CK, CBC, PTT, PT #### [address] Monocytes/100 WBC (Bld) 12.6 % Normal . [facility] Comment on above: Performed By: #### D DIMER, BMP, BNP, HS TROP, CKMB, CK, CBC, PTT, PT #### [address] Neutrophils (Bld) [#/Vol] 4.6 10*3/uL Normal 1.8-7.7 [facility] Comment on above: Performed By: #### D DIMER, BMP, BNP, HS TROP, CKMB, CK, CBC, PTT, PT #### [address] Neutrophils/100 WBC (Bld) 76.0 % Normal . [facility] Comment on above: Performed By: #### D DIMER, BMP, BNP, HS TROP, CKMB, CK, CBC, PTT, PT #### [address] Nucleated RBC/100 WBC (Bld) [Ratio] 0.0 % Normal 0-0.5 [facility] Comment on above: Performed By: #### D DIMER, BMP, BNP, HS TROP, CKMB, CK, CBC, PTT, PT #### [address] Platelet mean volume (Bld) [Entitic vol] 10.6 fL High 6.6-10.1 [facility] Comment on above: Performed By: #### D DIMER, BMP, BNP, HS TROP, CKMB, CK, CBC, PTT, PT #### [address] Platelets (Bld) [#/Vol] 214 10*3/uL Normal 150-450 [facility] Comment on above: Performed By: #### D DIMER, BMP, BNP, HS TROP, CKMB, CK, CBC, PTT, PT #### [address] RBC (Bld) [#/Vol] 3.74 10*6/uL Low 3.90-5.60 [facility] Comment on above: Performed By: #### D DIMER, BMP, BNP, HS TROP, CKMB, CK, CBC, PTT, PT #### [address] WBC (Bld) [#/Vol] 6.1 10*3/uL Normal 4.5-11.0 [facility] Comment on above: Performed By: #### D DIMER, BMP, BNP, HS TROP, CKMB, CK, CBC, PTT, PT #### [address] Comprehensive Metabolic Pane ritika 01-04-2022 Albumin [Mass/Vol] 3.0 g/dL Low 3.2-5.5 [facility] Comment on above: Order Comment: HEMOL YZED-PLEASE REDRAW. MLG Performed By: #### D DIMER, BMP, BNP, HS TROP, CKMB, CK, CBC, PTT, PT #### [address] Albumin/Globulin [Mass ratio] 0.9 {ratio} Normal [facility] Comment on above: Order Comment: HEMOL YZED-PLEASE REDRAW. MLG Performed By: #### D DIMER, BMP, BNP, HS TROP, CKMB, CK, CBC, PTT, PT #### [address] ALP [Catalytic activity/Vol] 44 U/L Normal 32-92 [facility] Comment on above: Order Comment: HEMOL YZED-PLEASE REDRAW. MLG Performed By: #### D DIMER, BMP, BNP, HS TROP, CKMB, CK, CBC, PTT, PT #### [address] ALT [Catalytic activity/Vol] 11 U/L Normal 10-60 [facility] Comment on above: Order Comment: HEMOL YZED-PLEASE REDRAW. MLG Performed By: #### D DIMER, BMP, BNP, HS TROP, CKMB, CK, CBC, PTT, PT #### [address] Anion gap [Moles/Vol] 12.2 mmol/L Normal 6.0-15.0 [facility] Comment on above: Order Comment: HEMOL YZED-PLEASE REDRAW. MLG Performed By: #### D DIMER, BMP, BNP, HS TROP, CKMB, CK, CBC, PTT, PT #### [address] AST [Catalytic activity/Vol] 14 U/L Normal 10-42 [facility] Comment on above: Order Comment: HEMOL YZED-PLEASE REDRAW. MLG Performed By: #### D DIMER, BMP, BNP, HS TROP, CKMB, CK, CBC, PTT, PT #### [place] [address] [place] Bilirubin [Mass/Vol] 0.9 mg/dL Normal 0.3-1.2 [facility] Comment on above: Order Comment: HEMOL YZED-PLEASE REDRAW. MLG Performed By: #### D DIMER, BMP, BNP, HS TROP, CKMB, CK, CBC, PTT, PT #### [facility] [address] Calcium [Mass/Vol] 8.6 mg/dL Normal 8.2-10.2 [facility] Comment on above: Order Comment: HEMOL YZED-PLEASE REDRAW. MLG Performed By: #### D DIMER, BMP, BNP, HS TROP, CKMB, CK, CBC, PTT, PT #### [facility] [address] Chloride [Moles/Vol] 94 mmol/L Low 95-114 [facility] Comment on above: Order Comment: HEMOL YZED-PLEASE REDRAW. MLG Performed By: #### D DIMER, BMP, BNP, HS TROP, CKMB, CK, CBC, PTT, PT #### [facility] [address] CO2 [Moles/Vol] 28.6 mmol/L Normal 22.0-30.0 [facility] Comment on above: Order Comment: HEMOL YZED-PLEASE REDRAW. MLG Performed By: #### D DIMER, BMP, BNP, HS TROP, CKMB, CK, CBC, PTT, PT #### [facility] [address] Creatinine [Mass/Vol] 0.56 mg/dL Low 0.64-1.27 [facility] Comment on above: Order Comment: HEMOL YZED-PLEASE REDRAW. MLG Performed By: #### D DIMER, BMP, BNP, HS TROP, CKMB, CK, CBC, PTT, PT #### [facility] [address] [place] [id number] [facility] Creatinine Clr Calc Pharmacy 62.94 Normal [facility] Comment on above: Order Comment: HEMOL YZED-PLEASE REDRAW. MLG Performed By: #### D DIMER, BMP, BNP, HS TROP, CKMB, CK, CBC, PTT, PT #### [facility] [address] Estimated GFR ( Uzma > 60 [facility] Comment on above: Order Comment: HEMOL YZED-PLEASE REDRAW. MLG Result Comment: GFR estimated reference range: According to KDOQI guidelines, <60 ml/min/1.73m2 is sufficient to diagnose a patient with chronic kidney disease. Performed By: #### D DIMER, BMP, BNP, HS TROP, CKMB, CK, CBC, PTT, PT #### [facility] [address] Estimated GFR (Non- Am > 60 [facility] Comment on above: Order Comment: HEMOL YZED-PLEASE REDRAW. MLG Performed By: #### D DIMER, BMP, BNP, HS TROP, CKMB, CK, CBC, PTT, PT #### [facility] [address] Globulin (S) [Mass/Vol] 3.2 g/dL Normal [facility] Comment on above: Order Comment: HEMOL YZED-PLEASE REDRAW. MLG Performed By: #### D DIMER, BMP, BNP, HS TROP, CKMB, CK, CBC, PTT, PT #### [facility] [address] Glucose [Mass/Vol] 124 mg/dL High 70-100 [facility] Comment on above: Order Comment: HEMOL YZED-PLEASE REDRAW. MLG Result Comment: [place] Glucose Reference Range is dependent on time and content of last meal. Glucose of more than 200 mg/dL in a nonstressed, ambulatory subject supports the diagnosis of Diabetes Mellitus. ADA recommended reference range Performed By: #### D DIMER, BMP, BNP, HS TROP, CKMB, CK, CBC, PTT, PT #### [facility] [address] Potassium [Moles/Vol] 3.8 mmol/L Normal 3.5-5.1 [facility] Comment on above: Order Comment: HEMOL YZED-PLEASE REDRAW. MLG Performed By: #### D DIMER, BMP, BNP, HS TROP, CKMB, CK, CBC, PTT, PT #### [facility] [address] Protein [Mass/Vol] 6.2 g/dL Normal 6.1-7.9 [facility] Comment on above: Order Comment: HEMOL YZED-PLEASE REDRAW. MLG Performed By: #### D DIMER, BMP, BNP, HS TROP, CKMB, CK, CBC, PTT, PT #### [facility] [address] Sodium [Moles/Vol] 131 mmol/L Low 136-146 [facility] Comment on above: Order Comment: HEMOL YZED-PLEASE REDRAW. MLG Performed By: #### D DIMER, BMP, BNP, HS TROP, CKMB, CK, CBC, PTT, PT #### [facility] [address] [place] [address] [place] Urea nitrogen [Mass/Vol] 14 mg/dL Normal 9-23 [facility] Comment on above: Order Comment: HEMOL YZED-PLEASE REDRAW. MLG Performed By: #### D DIMER, BMP, BNP, HS TROP, CKMB, CK, CBC, PTT, PT #### [facility] [address] [place] [address] [place] Creatinine and Glomerular fi ltration rate.predicted panel (S/P/Bld)Ordered By: Mohsen Muniz on 01-04-2022 Creatinine [Mass/Vol] 0.56 mg/dL 0.64-1.27 [facility] Eosinophils Auto (Bld) [#/Vo l]Ordered By: oMhsen Muniz on 01-04-2022 Eosinophils (Bld) [#/Vol] 0.1 10*3/uL 0.0-0.45 [facility] Eosinophils/100 WBC Auto (Bl d)Ordered By: Mohsen Muniz on 01-04-2022 Eosinophils/100 WBC (Bld) 2.3 % . [facility] Erythrocyte distribution wid th Auto (RBC) [Ratio]Ordered By: Mohsen Muniz on 01-04-2022 Erythrocyte distribution width (RBC) [Ratio] 13.2 % 12.0-14.8 [facility] Estimated glomerular filtrat ion rate (GFR) non- AmericanOrdered By: Mohsen Muniz on 01-04-2022 GFR/1.73 sq M.predicted among non-blacks MDRD (S/P/Bld) [Vol rate/Area] > 60 mL/Min [facility] Folate [Mass/volume] in Seru m or PlasmaOrdered By: Mohsen Muniz on 01-04-2022 Folate [Mass/Vol] 15.7 ng/mL >5.9 [facility] Comment on above: Folate reference ran ge: >5.9 ng/ml The WHO technical consultation on folate and vitamin b12 deficiencies has determined that folate concentrations less than 4 ng/ml are considered deficient. Globulin Calc (S) [Mass/Vol] Ordered By: Mohsen Muniz on 01-04-2022 Globulin (S) [Mass/Vol] 3.2 g/dL [facility] Glucose Poct Glucometerson 0 01-04-2022 Glucose [Mass/Vol] 121 mg/dL Normal [facility] Comment on above: Result Comment: [facility] Glucose Reference Range is dependent on time and content of last meal. Glucose of more than 200 mg/dL in a nonstressed, ambulatory subject supports the diagnosis of Diabetes Mellitus. PERFORMED BY: [place] [address] PATHOLOGIST VICE PRESIDENT [employer] NICHOLE BOLDEN M.D. Performed By: #### D DIMER, BMP, BNP, HS TROP, CKMB, CK, CBC, PTT, PT #### [facility] [address] Glucose [Mass/Vol] 135 mg/dL Normal [facility] Comment on above: Result Comment: [facility] Glucose Reference Range is dependent on time and content of last meal. Glucose of more than 200 mg/dL in a nonstressed, ambulatory subject supports the diagnosis of Diabetes Mellitus. PERFORMED BY: [place] [address] PATHOLOGIST VICE PRESIDENT [employer] COMM[employer] NICHOLE BOLDEN M.D. Performed By: #### D DIMER, BMP, BNP, HS TROP, CKMB, CK, CBC, PTT, PT #### [address] Glucose [Mass/Vol] 177 mg/dL Normal [facility] Comment on above: Result Comment: [place] om Glucose Reference Range is dependent on time and content of last meal. Glucose of more than 200 mg/dL in a nonstressed, ambulatory subject supports the diagnosis of Diabetes Mellitus. PERFORMED BY: [place] [address] PATHOLOGIST VICE PRESIDENT [employer] COMM[employer]ICATION[employer] NICHOLE BOLDEN M.D. Performed By: #### D DIMER, BMP, BNP, HS TROP, CKMB, CK, CBC, PTT, PT #### [address] Glucose [Mass/Vol] 119 mg/dL Normal [facility] Comment on above: Result Comment: [place] om Glucose Reference Range is dependent on time and content of last meal. Glucose of more than 200 mg/dL in a nonstressed, ambulatory subject supports the diagnosis of Diabetes Mellitus. PERFORMED BY: [place] [address] PATHOLOGIST VICE PRESIDENT [employer] COMM[employer]ICATION[employer] NICHOLE BOLDEN M.D. Performed By: #### D DIMER, BMP, BNP, HS TROP, CKMB, CK, CBC, PTT, PT #### [address] Hematocrit Auto (Bld) [Volum e fraction]Ordered By: Mohsen Muniz on 01-04-2022 Hematocrit (Bld) [Volume fraction] 36.2 % 38.8-50.0 [facility] - Chemistry and C hemistry - challengeOrdered By: Mohsen Muniz on 01-04-2022 Cobalamin (Vitamin B12) [Mass/Vol] 89 pg/mL 180-914 [facility] - Hematology and Cell countsOrdered By: Mohsen Muniz on 01-04-2022 Nucleated RBC/100 WBC (Bld) [Ratio] 0.0 % 0-0.5 [facility] Lymphocytes Auto (Bld) [#/Vo l]Ordered By: Mohsen Muniz on 01-04-2022 Lymphocytes (Bld) [#/Vol] 0.5 10*3/uL 1.00-4.8 [facility] Lymphocytes/100 WBC Auto (Bl d)Ordered By: Mohsen Muniz on 01-04-2022 Lymphocytes/100 WBC (Bld) 8.6 % . [facility] MCH Auto (RBC) [Entitic mass ]Ordered By: Mohsen Muniz on 01-04-2022 MCH (RBC) [Entitic mass] 32.9 pg 27.5-35.2 [facility] MCHC Auto (RBC) [Mass/Vol]Or dered By: Mohsen Muniz on 01-04-2022 MCHC (RBC) [Mass/Vol] 34.0 g/dL 32.5-35.6 [facility] MCV Auto (RBC) [Entitic vol] Ordered By: Mohsen Muniz on 01-04-2022 MCV (RBC) [Entitic vol] 96.7 fL 83.5-101 [facility] Monocytes Auto (Bld) [#/Vol] Ordered By: Mohsen Muniz on 01-04-2022 Monocytes (Bld) [#/Vol] 0.8 10*3/uL 0.0-0.8 [facility] Monocytes/100 WBC Auto (Bld) Ordered By: Mohsen Muniz on 01-04-2022 Monocytes/100 WBC (Bld) 12.6 % . [facility] Neutrophils Auto (Bld) [#/Vo l]Ordered By: Mohsen Muniz on 01-04-2022 Neutrophils (Bld) [#/Vol] 4.6 10*3/uL 1.8-7.7 [facility] Neutrophils/100 WBC Auto (Bl d)Ordered By: Mohsen Muniz on 01-04-2022 Neutrophils/100 WBC (Bld) 76.0 % . [facility] No Panel InformationOrdered By: Mohsen Muniz on 01-04-2022 25-Hydroxy Vitamin D Total 60.5 ng/mL 30-100 [facility] Comment on above: VITAMIN D STATUS 25( [place])VITAMIN D RANGE (ng/mL) Deficient <20 Insufficient 20 to <30 Sufficient 30 to 100 Reference: Madi MF,Luis E NC, Josué MIGUEL, et al. Evaluation,treatment, and prevention of vitamin D deficiency; an Endocrine Society clinical practice guideline. JCEM. 2010; 96(7):1911-30. Estimated GFR () > 60 mL/Min [facility] Comment on above: GFR estimated refere nce range: According to KDOQI guidelines, <60 ml/min/1.73m2 is sufficient to diagnose a patient with chronic kidney disease. Pharmacy Creatinine Clearance (Chem 62.94 [facility] Platelet mean volume Auto (B ld) [Entitic vol]Ordered By: Mohsen Muniz on 01-04-2022 Platelet mean volume (Bld) [Entitic vol] 10.6 fL 6.6-10.1 [facility] Platelets Auto (Bld) [#/Vol] Ordered By: Mohsen Muniz on 01-04-2022 Platelets (Bld) [#/Vol] 214 10*3/uL 150-450 [facility] Protein [Mass/volume] in Ser um or PlasmaOrdered By: Mohsen Muniz on 01-04-2022 Protein [Mass/Vol] 6.2 g/dL 6.1-7.9 [facility] RBC Auto (Bld) [#/Vol]Ordere d By: Mohsen Muniz on 01-04-2022 RBC (Bld) [#/Vol] 3.74 10*6/uL 3.90-5.60 [facility] Serum or plasma alanine cortez otransferase measurement without P-5'-P (enzymatic activiOrdered By: Mohsen Muniz on 01-04-2022 ALT No additional P-5'-P [Catalytic activity/Vol] 11 U/L 10-60 [facility] Serum or plasma albumin/glob ulin mass ratioOrdered By: Mohsen Muniz on 01-04-2022 Albumin/Globulin [Mass ratio] 0.9 {ratio} [facility] Serum or plasma alkaline gilma sphatase measurement (enzymatic activity/volume)Ordered By: Mohsen Muniz on 01-04-2022 ALP [Catalytic activity/Vol] 44 U/L 32-92 [facility] Serum or plasma anion gap de terminationOrdered By: Mohsen Muniz on 01-04-2022 Anion gap [Moles/Vol] 12.2 mmol/L 6.0-15.0 [facility] Serum or plasma aspartate am inotransferase measurement (enzymatic activity/volume)Ordered By: Mohsen Muniz on 01-04-2022 AST [Catalytic activity/Vol] 14 U/L 10-42 [facility] Serum or plasma calcium babita urement (mass/volume)Ordered By: Mohsen Muniz on 01-04-2022 Calcium [Mass/Vol] 8.6 mg/dL 8.2-10.2 [facility] Serum or plasma chloride sabrina surement (moles/volume)Ordered By: Mohsen Muniz on 01-04-2022 Chloride [Moles/Vol] 94 mmol/L 95-114 [facility] Serum or plasma glucose babita urement (mass/volume)Ordered By: Mohsen Muniz on 01-04-2022 Glucose [Mass/Vol] 124 mg/dL 70-100 [facility] Comment on above: ADA recommended refe rence range Random Glucose Reference Range is dependent on time and content of last meal. Glucose of more than 200 mg/dL in a nonstressed, ambulatory subject supports the diagnosis of Diabetes Mellitus. Serum or plasma potassium me asurement (moles/volume)Ordered By: Mohsen Muniz on 01-04-2022 Potassium [Moles/Vol] 3.8 mmol/L 3.5-5.1 [facility] Serum or plasma sodium measu rement (moles/volume)Ordered By: Mohsen Muniz on 01-04-2022 Sodium [Moles/Vol] 131 mmol/L 136-146 [facility] Serum or plasma total biliru bin measurement (mass/volume)Ordered By: Mohsen Muniz on 01-04-2022 Bilirubin [Mass/Vol] 0.9 mg/dL 0.3-1.2 [facility] Serum or plasma total carbon dioxide measurement (moles/volume)Ordered By: Mohsen Muniz on 01-04-2022 CO2 [Moles/Vol] 28.6 mmol/L 22.0-30.0 [facility] Serum or plasma urea nitroge n measurement (mass/volume)Ordered By: Mohsen Muniz on 01-04-2022 Urea nitrogen [Mass/Vol] 14 mg/dL 9- [facility] TSH DL <= 0.005 mIU/L QnOrde red By: Mohsen Muniz on 01-04-2022 TSH Qn 2.07 m[IU]/L 0.45-5.33 [facility] Thyroid Stim Hormone w/Rflxo n 01-04-2022 Thyroid Stim Hormone w/Rflx 2.07 u[iU]/mL Normal 0.45-5.33 [facility] Comment on above: Order Comment: HEMOL YZED-PLEASE REDRAW. MLG Performed By: #### D DIMER, BMP, BNP, HS TROP, CKMB, CK, CBC, PTT, PT #### [facility] [address] Vit. B12/Folate Profileon Cobalamin (Vitamin B12) [Mass/Vol] 89 pg/mL Low 180-914 [facility] Comment on above: Order Comment: HEMOL YZED-PLEASE REDRAW. MLG Performed By: #### D DIMER, BMP, BNP, HS TROP, CKMB, CK, CBC, PTT, PT #### [facility] [address] [place] [address] [place] Folate 15.7 ng/mL Normal >5.9 [facility] Comment on above: Order Comment: HEMOL YZED-PLEASE REDRAW. MLG Result Comment: [place] te reference range: >5.9 ng/ml The WHO technical consultation on folate and vitamin b12 deficiencies has determined that folate concentrations less than 4 ng/ml are considered deficient. Performed By: #### D DIMER, BMP, BNP, HS TROP, CKMB, CK, CBC, PTT, PT #### [facility] [address] Vitamin D 25 Hydroxy Totalon 01-04-2022 Vitamin D 25 Hydroxy Total 60.5 ng/mL Normal 30-100 [facility] Comment on above: Order Comment: HEMOL YZED-PLEASE REDRAW. MLG Result Comment: RUDY MIN D STATUS 25(OH)VITAMIN D RANGE (ng/mL) Deficient <20 Insufficient 20 to <30 Sufficient 30 to 100 Reference: Madi MF,Luis E NC, Josué MIGUEL, et al. Evaluation,treatment, and prevention of vitamin D deficiency; an Endocrine Society clinical practice guideline. JCEM. 2010; 96(7):1911-30. PERFORMED BY: [place] [address] PATHOLOGIST VICE PRES[employer] NICHOLE BOLDEN M.D. Performed By: #### D DIMER, BMP, BNP, HS TROP, CKMB, CK, CBC, PTT, PT #### [place] [id number] [facility] ECG 12 lead ECGon 01-03-2022 ECG 12 lead ECG [facility] [place] [address] Electrocardiograph Report Signed Patient: Esa Leavitt MR#: [id number] 623 : 1935 Acct:[id number] Age/Sex: 86 / M ADM Date: 01/01/22 Loc: Room: [address] [place] [address] Type: DIS IN Attending Dr: Mohsen Muniz MD Ordering Provider: Anabella Stone MD Date of Service: 01/02/22 ECG/ECG 12 lead ECG: rhythm change Copies to: Test Reason : Blood Pressure : / mmHG Vent. Rate : 137 BPM Atrial Rate : 141 BPM P-R Int : 000 ms QRS Dur : 080 ms QT Int : 298 ms P-R-T Axes : 000 -52 070 degrees QTc Int : 449 ms Atrial fibrillation with rapid ventricular response Left axis deviation Anterior infarct , age undetermined Abnormal ECG No previous ECGs available Confirmed by BROOKS LANDAVERDE DO ([id number]) on 01/03/2022 7:54:50 PM Referred By: Electronically Signed By:BROOKS LANDAVERDE DO Transcribed By: MUS Signed By Brooks Landaverde DO 01/03 [facility] Glucose Poct Glucometerson 0 01-03-2022 Glucose [Mass/Vol] 241 mg/dL Normal [facility] Comment on above: Result Comment: [place] om Glucose Reference Range is dependent on time and content of last meal. Glucose of more than 200 mg/dL in a nonstressed, ambulatory subject supports the diagnosis of Diabetes Mellitus. PERFORMED BY: [place] [address] PATHOLOGIST [employer]ICE [employer] NICHOLE BOLDEN M.D. Performed By: #### D DIMER, BMP, BNP, HS TROP, CKMB, CK, CBC, PTT, PT #### [address] Commemt1 Glu2: Cleaned Meter [facility] Comment on above: Result Comment: PERF ORMED BY: [place] [address] PATHOLOGIST VICE PRESIDENT [employer] NICHOLE BOLDEN M.D. Performed By: #### D DIMER, BMP, BNP, HS TROP, CKMB, CK, CBC, PTT, PT #### [facility] [address] [place] [address] Glucose [Mass/Vol] 139 mg/dL Normal [facility] Comment on above: Result Comment: [place] om Glucose Reference Range is dependent on time and content of last meal. Glucose of more than 200 mg/dL in a nonstressed, ambulatory subject supports the diagnosis of Diabetes Mellitus. Performed By: #### D DIMER, BMP, BNP, HS TROP, CKMB, CK, CBC, PTT, PT #### [place] [address] [place] Glucose [Mass/Vol] 113 mg/dL Normal [facility] Comment on above: Result Comment: [place] om Glucose Reference Range is dependent on time and content of last meal. Glucose of more than 200 mg/dL in a nonstressed, ambulatory subject supports the diagnosis of Diabetes Mellitus. PERFORMED BY: [place] [address] PATHOLOGIST VICE PRES[employer] NICHOLE BOLDEN M.D. Performed By: #### D DIMER, BMP, BNP, HS TROP, CKMB, CK, CBC, PTT, PT #### [address] Glucose [Mass/Vol] 162 mg/dL Normal [facility] Comment on above: Result Comment: [place] om Glucose Reference Range is dependent on time and content of last meal. Glucose of more than 200 mg/dL in a nonstressed, ambulatory subject supports the diagnosis of Diabetes Mellitus. PERFORMED BY: [place] [address] PATHOLOGIST VICE PRESIDENT [employer] NICHOLE BOLDEN M.D. Performed By: #### D DIMER, BMP, BNP, HS TROP, CKMB, CK, CBC, PTT, PT #### [place] [id number] [facility] NM ed perf SPECT rest stron 01-03-2022 NM ed perf SPECT rest str [facility] Main [place] [address] [place] [address] Nuclear Medicine Report Signed Patient: Esa Leavitt MR#: [id number] 623 : 1935 Acct:[id number] Age/Sex: 86 / M ADM Date: 01/01/22 Loc: Room: [address] [place] [address] Type: ADM IN Attending Dr: Mohsen Muniz MD Copies to: MD Demetra Gonzalez MD, [facility] Anderson Ambrosio MD Ordering Provider: Anderson Ambrosio MD Date of Service: 01/03/22 NM/NM ed perf SPECT rest str: chest pain ORDERED BY: Anderson Ambrosio MD INDICATION: An 86-year-old patient with chest pain. Resting images were obtained after intravenous administration of 6.5 mCi of Cardiolite given on 01/03/2022, and stress images were obtained after intravenous administration of 19.3 mCi of Cardiolite given after Lexiscan administration on 01/03/2022. Subsequently, gated SPECT MPI was obtained. TOMOGRAPHIC DATA: The study is abnormal and reveals reversible perfusion defect of mild to moderate intensity involving the apical segment. No tomographic evidence of myocardial infarction is noted. The gated study demonstrated normal ejection fraction at 51% with normal TID at 0.86. CONCLUSION: 1. Abnormal Lexiscan Cardiolite SPECT MPI. 2. Tomographic evidence of small reversible apical perfusion defect of mild to moderate intensity suggestive of ischemia. 3. No tomographic evidence of myocardial infarction. 4. Normal left ventricular volume and wall motion, ejection fraction 51% with normal TID at 0.86. No previous studies are available for comparison. Transcribed By: NTS 01/03/22 1426 Dictated By: Demetra Iraheta MD, [facility] 01/03/22 1412 Signed By: 01/04/22 1404 Normal [facility] STR cardiac stress/lexiscano n 01-03-2022 STR cardiac stress/lexiscan [facility] [address] Cardiac Stress Test Signed Patient: Esa Leavitt MR#: [id number] 623 : 1935 Acct:[id number] Age/Sex: 86 / M ADM Date: 01/01/22 Loc: Room: [address] [place] [address] Type: DIS IN Attending Dr: Mohsen Muniz MD Copies to: Demetra Iraheta MD, [facility] Anderson Ambrosio MD Ordering Provider: Anderson Ambrosio MD Date of Service: 01/03/22 STR/STR cardiac stress/lexiscan: chest pain ORDERED BY: Amauri Ambrosio MD INDICATION: An 86-year-old patient with chest pain. Resting EKG revealed normal sinus rhythm, heart rate 66 beats per minute. Resting blood pressure 159/73 mmHg. Following intravenous administration of 400 mcg of Lexiscan over 10 seconds, no ischemic EKG changes were noted. There is no chest pain or cardiac arrhythmias noted. Cardiolite study followed. CONCLUSION: 1. No Lexiscan-induced ischemic EKG changes, chest pain or cardiac arrhythmias. 2. Cardiolite studies to be reported separately by nuclear cardiology. Transcribed By: NTS 01/03/22 1442 Dictated By: Demetra Iraheta MD, [facility] 01/03/22 1404 Signed By: 01/04/22 1404 [facility] Basic Metabolic Panelon 12-07 Calcium [Mass/Vol] 8.7 mg/dL Normal 8.2-10.2 [facility] Comment on above: Performed By: #### D DIMER, BMP, BNP, HS TROP, CKMB, CK, CBC, PTT, PT #### [facility] [address] Chloride [Moles/Vol] 93 mmol/L Low 95-114 [facility] Comment on above: Performed By: #### D DIMER, BMP, BNP, HS TROP, CKMB, CK, CBC, PTT, PT #### [facility] [address] CO2 [Moles/Vol] 28.8 mmol/L Normal 22.0-30.0 [facility] Comment on above: Performed By: #### D DIMER, BMP, BNP, HS TROP, CKMB, CK, CBC, PTT, PT #### [facility] [address] Creatinine [Mass/Vol] 0.61 mg/dL Low 0.64-1.27 [facility] Comment on above: Performed By: #### D DIMER, BMP, BNP, HS TROP, CKMB, CK, CBC, PTT, PT #### [facility] [address] Creatinine Clr Calc Pharmacy 62.94 [facility] Comment on above: Result Comment: PERF ORMED BY: [place] [address] PATHOLOGIST [employer]ICE PRES[employer] NICHOLE BOLDEN M.D. Performed By: #### D DIMER, BMP, BNP, HS TROP, CKMB, CK, CBC, PTT, PT #### [facility] [address] Estimated GFR ( [place] > 60 [facility] Comment on above: Result Comment: GFR estimated reference range: According to KDOQI guidelines, <60 ml/min/1.73m2 is sufficient to diagnose a patient with chronic kidney disease. Performed By: #### D DIMER, BMP, BNP, HS TROP, CKMB, CK, CBC, PTT, PT #### [facility] [address] Estimated GFR (Non- Am > 60 Normal [facility] Comment on above: Performed By: #### D DIMER, BMP, BNP, HS TROP, CKMB, CK, CBC, PTT, PT #### [facility] [address] Glucose [Mass/Vol] 124 mg/dL High 70-100 [facility] Comment on above: Result Comment: [place] Glucose Reference Range is dependent on time and content of last meal. Glucose of more than 200 mg/dL in a nonstressed, ambulatory subject supports the diagnosis of Diabetes Mellitus. ADA recommended reference range Performed By: #### D DIMER, BMP, BNP, HS TROP, CKMB, CK, CBC, PTT, PT #### [address] Potassium [Moles/Vol] 3.9 mmol/L Normal 3.5-5.1 [facility] Comment on above: Performed By: #### D DIMER, BMP, BNP, HS TROP, CKMB, CK, CBC, PTT, PT #### [facility] [address] Sodium [Moles/Vol] 130 mmol/L Low 136-146 [facility] Comment on above: Performed By: #### D DIMER, BMP, BNP, HS TROP, CKMB, CK, CBC, PTT, PT #### [address] Urea nitrogen [Mass/Vol] 18 mg/dL Normal 9-23 [facility] Comment on above: Performed By: #### D DIMER, BMP, BNP, HS TROP, CKMB, CK, CBC, PTT, PT #### [address] Complete Blood Count Auto Di ffon 01-02-2022 Basophils (Bld) [#/Vol] 0.1 10*3/uL Normal 0.0-0.2 [facility] Comment on above: Result Comment: PERF ORMED BY: [place] [address] PATHOLOGIST VICE PRES[employer] NICHOLE BOLDEN M.D. Performed By: #### D DIMER, BMP, BNP, HS TROP, CKMB, CK, CBC, PTT, PT #### [address] Basophils/100 WBC (Bld) 0.6 % Normal . [facility] Comment on above: Performed By: #### D DIMER, BMP, BNP, HS TROP, CKMB, CK, CBC, PTT, PT #### [address] Eosinophils (Bld) [#/Vol] 0.0 10*3/uL Normal 0.0-0.45 [facility] Comment on above: Performed By: #### D DIMER, BMP, BNP, HS TROP, CKMB, CK, CBC, PTT, PT #### [address] Eosinophils/100 WBC (Bld) 0.3 % Normal . [facility] Comment on above: Performed By: #### D DIMER, BMP, BNP, HS TROP, CKMB, CK, CBC, PTT, PT #### [address] Erythrocyte distribution width (RBC) [Ratio] 13.6 % Normal 12.0-14.8 [facility] Comment on above: Performed By: #### D DIMER, BMP, BNP, HS TROP, CKMB, CK, CBC, PTT, PT #### [address] Hematocrit (Bld) [Volume fraction] 36.6 % Low 38.8-50.0 [facility] Comment on above: Performed By: #### D DIMER, BMP, BNP, HS TROP, CKMB, CK, CBC, PTT, PT #### [address] Hemoglobin (Bld) [Mass/Vol] 12.4 g/dL Low 13.0-17.0 [facility] Comment on above: Performed By: #### D DIMER, BMP, BNP, HS TROP, CKMB, CK, CBC, PTT, PT #### [address] Lymphocytes (Bld) [#/Vol] 0.8 10*3/uL Low 1.00-4.8 [facility] Comment on above: Performed By: #### D DIMER, BMP, BNP, HS TROP, CKMB, CK, CBC, PTT, PT #### [address] Lymphocytes/100 WBC (Bld) 9.0 % Normal . [facility] Comment on above: Performed By: #### D DIMER, BMP, BNP, HS TROP, CKMB, CK, CBC, PTT, PT #### [address] MCH (RBC) [Entitic mass] 32.8 pg Normal 27.5-35.2 [facility] Comment on above: Performed By: #### D DIMER, BMP, BNP, HS TROP, CKMB, CK, CBC, PTT, PT #### [address] MCV (RBC) [Entitic vol] 97.0 fL Normal 83.5-101 [facility] Comment on above: Performed By: #### D DIMER, BMP, BNP, HS TROP, CKMB, CK, CBC, PTT, PT #### [address] Mean Corpuscular HGB Conc 33.8 g/dL Normal 32.5-35.6 [facility] Comment on above: Performed By: #### D DIMER, BMP, BNP, HS TROP, CKMB, CK, CBC, PTT, PT #### [address] Monocytes (Bld) [#/Vol] 1.0 10*3/uL High 0.0-0.8 [facility] Comment on above: Performed By: #### D DIMER, BMP, BNP, HS TROP, CKMB, CK, CBC, PTT, PT #### [facility] [address] Monocytes/100 WBC (Bld) 11.1 % Normal . [facility] Comment on above: Performed By: #### D DIMER, BMP, BNP, HS TROP, CKMB, CK, CBC, PTT, PT #### [facility] [address] Neutrophils (Bld) [#/Vol] 7.4 10*3/uL Normal 1.8-7.7 [facility] Comment on above: Performed By: #### D DIMER, BMP, BNP, HS TROP, CKMB, CK, CBC, PTT, PT #### [facility] [address] Neutrophils/100 WBC (Bld) 79.0 % Normal . [facility] Comment on above: Performed By: #### D DIMER, BMP, BNP, HS TROP, CKMB, CK, CBC, PTT, PT #### [facility] [address] Nucleated RBC/100 WBC (Bld) [Ratio] 0.0 % Normal 0-0.5 [facility] Comment on above: Performed By: #### D DIMER, BMP, BNP, HS TROP, CKMB, CK, CBC, PTT, PT #### [facility] [address] Platelet mean volume (Bld) [Entitic vol] 9.9 fL Normal 6.6-10.1 [facility] Comment on above: Performed By: #### D DIMER, BMP, BNP, HS TROP, CKMB, CK, CBC, PTT, PT #### [address] Platelets (Bld) [#/Vol] 200 10*3/uL Normal 150-450 [facility] Comment on above: Performed By: #### D DIMER, BMP, BNP, HS TROP, CKMB, CK, CBC, PTT, PT #### [facility] [address] RBC (Bld) [#/Vol] 3.77 10*6/uL Low 3.90-5.60 [facility] Comment on above: Performed By: #### D DIMER, BMP, BNP, HS TROP, CKMB, CK, CBC, PTT, PT #### [facility] [address] WBC (Bld) [#/Vol] 9.4 10*3/uL Normal 4.5-11.0 [facility] Comment on above: Performed By: #### D DIMER, BMP, BNP, HS TROP, CKMB, CK, CBC, PTT, PT #### [facility] [address] ECG 12 lead ECGon 01-02-2022 ECG 12 lead ECG [facility] Main [place] [address] [place] [address] Electrocardiograph Report Signed Patient: sEa Leavitt MR#: [id number] 623 : 1935 Acct:[id number] Age/Sex: 86 / M ADM Date: 01/01/22 Loc: Room: [address] [place] [address] Type: DIS IN Attending Dr: Mohsen Muniz MD Ordering Provider: Demetra Iraheta MD, [facility] Date of Service: 01/02/22 ECG/ECG 12 lead ECG: PAF Copies to: Test Reason : Blood Pressure : / mmHG Vent. Rate : 063 BPM Atrial Rate : 063 BPM P-R Int : 282 ms QRS Dur : 096 ms QT Int : 406 ms P-R-T Axes : 019 -24 032 degrees QTc Int : 415 ms Sinus rhythm with 1st degree AV block Nonspecific ST abnormality Abnormal ECG When compared with ECG of 01-JAN-2022 04:47, (Unconfirmed) Sinus rhythm replace AV dissociation rhythm Confirmed by NASREEN JOHNS [facility], DEMETRA ([id number]) on 01/03/2022 1:16:00 PM Referred By: Electronically Signed By:DEMETRA IRAHETA MD [facility] Transcribed By: MUS Signed By Demetra Iraheta MD, [facility] 01/03/22 1316 Normal [facility] Glucose Poct Glucometerson 0 01-02-2022 Glucose [Mass/Vol] 134 mg/dL Normal [facility] Comment on above: Result Comment: [facility] Glucose Reference Range is dependent on time and content of last meal. Glucose of more than 200 mg/dL in a nonstressed, ambulatory subject supports the diagnosis of Diabetes Mellitus. PERFORMED BY: [place] [address] PATHOLOGIST VICE PRES[employer] NICHOLE BOLDEN M.D. Performed By: #### D DIMER, BMP, BNP, HS TROP, CKMB, CK, CBC, PTT, PT #### [address] Commemt1 Glu2: Cleaned Meter [facility] Comment on above: Result Comment: PERF ORMED BY: [place] [address] PATHOLOGIST VICE PRESIDENT [employer] NICHOLE BOLDEN M.D. Performed By: #### D DIMER, BMP, BNP, HS TROP, CKMB, CK, CBC, PTT, PT #### [address] Glucose [Mass/Vol] 142 mg/dL Normal [facility] Comment on above: Result Comment: [facility] Glucose Reference Range is dependent on time and content of last meal. Glucose of more than 200 mg/dL in a nonstressed, ambulatory subject supports the diagnosis of Diabetes Mellitus. Performed By: #### D DIMER, BMP, BNP, HS TROP, CKMB, CK, CBC, PTT, PT #### [facility] [address] [place] [address] Commemt1 Glu2: Cleaned Meter [facility] Comment on above: Result Comment: PERF ORMED BY: [place] [address] PATHOLOGIST VICE PRESIDENT [employer] NICHOLE BOLDEN M.D. Performed By: #### D DIMER, BMP, BNP, HS TROP, CKMB, CK, CBC, PTT, PT #### [facility] [address] Glucose [Mass/Vol] 144 mg/dL Normal [facility] Comment on above: Result Comment: [place] om Glucose Reference Range is dependent on time and content of last meal. Glucose of more than 200 mg/dL in a nonstressed, ambulatory subject supports the diagnosis of Diabetes Mellitus. Performed By: #### D DIMER, BMP, BNP, HS TROP, CKMB, CK, CBC, PTT, PT #### [facility] [address] Glucose [Mass/Vol] 129 mg/dL Normal [facility] Comment on above: Result Comment: [place] Glucose Reference Range is dependent on time and content of last meal. Glucose of more than 200 mg/dL in a nonstressed, ambulatory subject supports the diagnosis of Diabetes Mellitus. PERFORMED BY: [place] [address] PATHOLOGIST VICE PRES[employer] NICHOLE BOLDEN M.D. Performed By: #### D DIMER, BMP, BNP, HS TROP, CKMB, CK, CBC, PTT, PT #### [address] Automated erythrocytes count in urine sediment (number/area)Ordered By: Ronit Caruso on 01-01-2022 RBC Auto (Urine sed) [#/Area] 0-1 [HPF] 0-4 [facility] Automated leukocytes count i n urine sediment (number/area)Ordered By: Ronit Caruso on 01-01-2022 WBC Auto (Urine sed) [#/Area] None seen [HPF] 0-4 [facility] B-Type Natriuretic Peptideon 01-01-2022 Natriuretic peptide B (Bld) [Mass/Vol] 157.0 pg/mL High 5-100 [facility] Comment on above: Result Comment: PERF ORMED BY: [place] [address] PATHOLOGIST VICE PRESIDENT [employer] NICHOLE BOLDEN M.D. Performed By: #### D DIMER, BMP, BNP, HS TROP, CKMB, CK, CBC, PTT, PT #### [address] Basic Metabolic Panelon 08-2 Calcium [Mass/Vol] 9.0 mg/dL Normal 8.2-10.2 [facility] Comment on above: Result Comment: PERF ORMED BY: [place] [address] PATHOLOGIST VICE PRESIDENT [employer] NICHOLE BOLDEN M.D. Performed By: #### D DIMER, BMP, BNP, HS TROP, CKMB, CK, CBC, PTT, PT #### [address] Chloride [Moles/Vol] 92 mmol/L Low 95-114 [facility] Comment on above: Performed By: #### D DIMER, BMP, BNP, HS TROP, CKMB, CK, CBC, PTT, PT #### [address] CO2 [Moles/Vol] 23.3 mmol/L Normal 22.0-30.0 [facility] Comment on above: Performed By: #### D DIMER, BMP, BNP, HS TROP, CKMB, CK, CBC, PTT, PT #### [address] Creatinine [Mass/Vol] 0.59 mg/dL Low 0.64-1.27 [facility] Comment on above: Performed By: #### D DIMER, BMP, BNP, HS TROP, CKMB, CK, CBC, PTT, PT #### [address] Estimated GFR ( [place] > 60 Normal [facility] Comment on above: Result Comment: GFR estimated reference range: According to KDOQI guidelines, <60 ml/min/1.73m2 is sufficient to diagnose a patient with chronic kidney disease. Performed By: #### D DIMER, BMP, BNP, HS TROP, CKMB, CK, CBC, PTT, PT #### [address] Estimated GFR (Non- Am > 60 Normal [facility] Comment on above: Performed By: #### D DIMER, BMP, BNP, HS TROP, CKMB, CK, CBC, PTT, PT #### [facility] [address] Glucose [Mass/Vol] 194 mg/dL High 70-100 [facility] Comment on above: Result Comment: [facility] Glucose Reference Range is dependent on time and content of last meal. Glucose of more than 200 mg/dL in a nonstressed, ambulatory subject supports the diagnosis of Diabetes Mellitus. ADA recommended reference range Performed By: #### D DIMER, BMP, BNP, HS TROP, CKMB, CK, CBC, PTT, PT #### [address] Potassium [Moles/Vol] 3.5 mmol/L Normal 3.5-5.1 [facility] Comment on above: Performed By: #### D DIMER, BMP, BNP, HS TROP, CKMB, CK, CBC, PTT, PT #### [address] Sodium [Moles/Vol] 133 mmol/L Low 136-146 [facility] Comment on above: Performed By: #### D DIMER, BMP, BNP, HS TROP, CKMB, CK, CBC, PTT, PT #### [address] Urea nitrogen [Mass/Vol] 15 mg/dL Normal 9-23 [facility] Comment on above: Performed By: #### D DIMER, BMP, BNP, HS TROP, CKMB, CK, CBC, PTT, PT #### [address] Bilirubin Test strip Ql (U)O rdered By: Ronit Caruso on 01-01-2022 Bilirubin Ql (U) Negative Negative [facility] Blood Cultureon 01-01-2022 Bacteria identified Cx Nom (Bld) NO GROWTH 5 DAYS PERFORMED BY: [place] [address] PATHOLOGIST VICE PRESIDENT [employer] NICHOLE BOLDEN M.D. [facility] Comment on above: Performed By: #### D DIMER, BMP, BNP, HS TROP, CKMB, CK, CBC, PTT, PT #### [facility] [address] Bacteria identified Cx Nom (Bld) NO GROWTH 5 DAYS PERFORMED BY: [place] [address] PATHOLOGIST VICE PRESIDENT [employer] NICHOLE BOLDEN M.D. [facility] Comment on above: Performed By: #### D DIMER, BMP, BNP, HS TROP, CKMB, CK, CBC, PTT, PT #### [facility] [address] COVID-19 Antigenon 2 COVID-19 Antigen Healthcare Worker?: N Reference Range: Negative Negative results, from patients with symptom onset beyond five days, should be treated as presumptive and confirmation with a molecular assay, if necessary, for patient management, may be performed. Negative results do not rule out COVID-19 and should not be used as the sole basis for treatment or patient management decisions, including infection control decisions. Negative results should be considered in the context of a patient's recent exposures, history and the presence of clinical signs and symptoms consistent with COVID-19. The Ya SARS Antigen GEREMIAS does not differentiate between SARS-CoV and SARS-CoV-2. This test was developed and its performance characteristic determined by [employer] and validated at [facility]. This test has not been FDA cleared or approved. This test has been authorized by FDA under an Emergency Use Authorization (EUA). This test has been validated in accordance with the FDA's Guidance Document (Policy for Diagnostics Testing in Laboratories Certified to Perform High Complexity Testing under CLIA prior to Emergency Use Authorization for Coronavirus Disease-2019 during the Public Health Emergency) issued on August 08, 2019. This test is only authorized for the duration of time the declaration that circumstances exist justifying the authorization of the emergency use of in vitro diagnostic tests for detection of SARS-CoV-2 virus and/or diagnosis of COVID-19 infection under section 564(b)(1) of the Act, 21 U.S.C. 360bbb-3(b)(1), unless the authorization is terminated or revoked sooner. SARS-CoV+SARS-CoV- 2 (COVID-19) Ag [Presence] in Respiratory specimen by Rapid immunoassay Negative for SARS Antigen by GER[facility]IAS PERFORMED BY: [place] [address] PATHOLOGIST VICE PRESIDENT [employer] NICHOLE BOLDEN M.D. Normal [facility] Comment on above: Performed By: #### D DIMER, BMP, BNP, HS TROP, CKMB, CK, CBC, PTT, PT #### [address] [facility] SARS-CoV-2 (COVID-19) RNA JEFF+probe Ql (Unsp spec) Negative Normal Negative [facility] Comment on above: Order Comment: Healt hcare Worker?: N Result Comment: Testing for SARS-CoV-2 by RT-PCR This test was developed and its performance characteristics determined by [employer]) and validated at the [facility]. This test has not been FDA cleared or approved. This test has been authorized by FDA under an Emergency Use Authorization (EUA). This test has been validated in accordance with the FDA's Guidance Document (Policy for Diagnostics Testing in Laboratories Certified to Perform High Complexity Testing under CLIA prior to Emergency Use Authorization for Coronavirus Disease-2019 during the Public Health Emergency) issued on August 08, 2019. This test is only authorized for the duration of time the declaration that circumstances exist justifying the authorization of the emergency use of in vitro diagnostic tests for detection of SARS-CoV-2 virus and/or diagnosis of COVID-19 infection under section 564(b)(1) of the Act, 21 U.S.C. 360bbb-3(b)(1), unless the authorization is terminated or revoked sooner. PERFORMED BY: [place] [address] PATHOLOGIST VICE PRESIDENT [employer] NICHOLE BOLDEN M.D. Performed By: #### D DIMER, BMP, BNP, HS TROP, CKMB, CK, CBC, PTT, PT #### [address] chest w conon 01-01-2022 CT chest w con [facility] Main [place] [address] [place] [id number] Scan Report Signed Patient: Esa Leavitt MR#: [id number] 623 : 1935 Acct:[id number] Age/Sex: 86 / M ADM Date: 01/01/22 Loc: Room: [address] [place] [address] Type: ADM IN Attending Dr: Ronit Caruso MD Copies to: Ronit Caruso MD Ordering Provider: Ronit Caruso MD Date of Service: 01/01/22 CT/CT chest w con: cough CT chest withcontrast TECHNIQUE: Axial imaging with 2-D reconstruction. 90 cc of Isovue-300The CT exam was performed using one or more the following dose reduction techniques: Automated exposure control, adjustment of the MA and/or Kv according to patient size, or use of the iterative reconstruction technique. History: New onset atrial fibrillation. Cough. COMPARISON: Plain film chest dated 2621 The thyroid gland is normal. Large hiatal hernia. Central airway is patent. Esophagus is normal course and caliber. Heart is not enlarged. No pericardial effusion is seen. Coronary artery calcification. Nonenlarged mediastinal lymph nodes identified. No hilar mass or adenopathy is seen. No thoracic aortic aneurysm is seen. 13 mm noncalcified nodule on the RIGHT upper lobe abuts the minor fissure. This is seen with coronal image #34 and axial image #30. 6 mm noncalcified nodular density of the RIGHT lower lobe in the lateral costophrenic angle identified. No infiltrate or congestion identified. No pleural effusion identified. No pneumothorax seen. Basilar atelectasis present. No chest wall abnormality seen. The bony structures are intact. Images of the upper abdomen are noncontributory. CT/CT chest w con IMPRESSION: No acute chest findings. Large hiatal hernia. Basilar linear atelectasis/scarri ng. The RIGHT lung nodules. No priors for comparison. Consider short-term follow-up assessment with CT examination versus a PET/CT imaging. Impression dictated by: Brooks Easley M.D.01/01/2022 6:24 PM Dictation Location: [place] [address] Transcribed By: [facility] 01/01/221823 Dictated By: Brooks Easley DO 01/01/221816 Signed By: 01/01/221823 Normal [facility] Color Auto (U)Ordered By: Kyle Caruso on 01-01-2022 Color (U) Chambers Yellow [facility] Complete Blood Count Auto Di ffon 01-01-2022 Basophils (Bld) [#/Vol] 0.0 10*3/uL Normal 0.0-0.2 [facility] Comment on above: Result Comment: PERF ORMED BY: [place] [address] PATHOLOGIST VICE PRES[employer] NICHOLE BOLDEN M.D. Performed By: #### D DIMER, BMP, BNP, HS TROP, CKMB, CK, CBC, PTT, PT #### [address] Basophils/100 WBC (Bld) 0.2 % Normal . [facility] Comment on above: Performed By: #### D DIMER, BMP, BNP, HS TROP, CKMB, CK, CBC, PTT, PT #### [facility] [address] [place] [address] Eosinophils (Bld) [#/Vol] 0.0 10*3/uL Normal 0.0-0.45 [facility] Comment on above: Performed By: #### D DIMER, BMP, BNP, HS TROP, CKMB, CK, CBC, PTT, PT #### [address] Eosinophils/100 WBC (Bld) 0.0 % Normal . [facility] Comment on above: Performed By: #### D DIMER, BMP, BNP, HS TROP, CKMB, CK, CBC, PTT, PT #### [address] Erythrocyte distribution width (RBC) [Ratio] 13.4 % Normal 12.0-14.8 [facility] Comment on above: Performed By: #### D DIMER, BMP, BNP, HS TROP, CKMB, CK, CBC, PTT, PT #### [address] Hematocrit (Bld) [Volume fraction] 37.4 % Low 38.8-50.0 [facility] Comment on above: Performed By: #### D DIMER, BMP, BNP, HS TROP, CKMB, CK, CBC, PTT, PT #### [address] Hemoglobin (Bld) [Mass/Vol] 12.5 g/dL Low 13.0-17.0 [facility] Comment on above: Performed By: #### D DIMER, BMP, BNP, HS TROP, CKMB, CK, CBC, PTT, PT #### [address] Lymphocytes (Bld) [#/Vol] 0.6 10*3/uL Low 1.00-4.8 [facility] Comment on above: Performed By: #### D DIMER, BMP, BNP, HS TROP, CKMB, CK, CBC, PTT, PT #### [address] Lymphocytes/100 WBC (Bld) 3.7 % Normal . [facility] Comment on above: Performed By: #### D DIMER, BMP, BNP, HS TROP, CKMB, CK, CBC, PTT, PT #### [address] MCH (RBC) [Entitic mass] 32.3 pg Normal 27.5-35.2 [facility] Comment on above: Performed By: #### D DIMER, BMP, BNP, HS TROP, CKMB, CK, CBC, PTT, PT #### [address] MCV (RBC) [Entitic vol] 97.1 fL Normal 83.5-101 [facility] Comment on above: Performed By: #### D DIMER, BMP, BNP, HS TROP, CKMB, CK, CBC, PTT, PT #### [address] Mean Corpuscular HGB Conc 33.3 g/dL Normal 32.5-35.6 [facility] Comment on above: Performed By: #### D DIMER, BMP, BNP, HS TROP, CKMB, CK, CBC, PTT, PT #### [facility] [address] Monocytes (Bld) [#/Vol] 1.5 10*3/uL High 0.0-0.8 [facility] Comment on above: Performed By: #### D DIMER, BMP, BNP, HS TROP, CKMB, CK, CBC, PTT, PT #### [facility] [address] Monocytes/100 WBC (Bld) 9.3 % Normal . [facility] Comment on above: Performed By: #### D DIMER, BMP, BNP, HS TROP, CKMB, CK, CBC, PTT, PT #### [facility] [address] Neutrophils (Bld) [#/Vol] 13.8 10*3/uL High 1.8-7.7 [facility] Comment on above: Performed By: #### D DIMER, BMP, BNP, HS TROP, CKMB, CK, CBC, PTT, PT #### [facility] [address] Neutrophils/100 WBC (Bld) 86.8 % Normal . [facility] Comment on above: Performed By: #### D DIMER, BMP, BNP, HS TROP, CKMB, CK, CBC, PTT, PT #### [facility] [address] [place] [address] [place] Nucleated RBC/100 WBC (Bld) [Ratio] 0.0 % Normal 0-0.5 [facility] Comment on above: Performed By: #### D DIMER, BMP, BNP, HS TROP, CKMB, CK, CBC, PTT, PT #### [facility] [address] Platelet mean volume (Bld) [Entitic vol] 9.7 fL Normal 6.6-10.1 [facility] Comment on above: Performed By: #### D DIMER, BMP, BNP, HS TROP, CKMB, CK, CBC, PTT, PT #### [facility] [address] Platelets (Bld) [#/Vol] 228 10*3/uL Normal 150-450 [facility] Comment on above: Performed By: #### D DIMER, BMP, BNP, HS TROP, CKMB, CK, CBC, PTT, PT #### [facility] [address] RBC (Bld) [#/Vol] 3.86 10*6/uL Low 3.90-5.60 [facility] Comment on above: Performed By: #### D DIMER, BMP, BNP, HS TROP, CKMB, CK, CBC, PTT, PT #### [facility] [address] WBC (Bld) [#/Vol] 15.9 10*3/uL High 4.5-11.0 [facility] Comment on above: Performed By: #### D DIMER, BMP, BNP, HS TROP, CKMB, CK, CBC, PTT, PT #### [address] Basophils (Bld) [#/Vol] 0.0 10*3/uL Normal 0.0-0.2 [facility] Comment on above: Result Comment: PERF ORMED BY: [place] [address] PATHOLOGIST [employer] NICHOLE BOLDEN M.D. Performed By: #### D DIMER, BMP, BNP, HS TROP, CKMB, CK, CBC, PTT, PT #### [address] Basophils/100 WBC (Bld) 0.3 % Normal . [facility] Comment on above: Performed By: #### D DIMER, BMP, BNP, HS TROP, CKMB, CK, CBC, PTT, PT #### [address] Eosinophils (Bld) [#/Vol] 0.0 10*3/uL Normal 0.0-0.45 [facility] Comment on above: Performed By: #### D DIMER, BMP, BNP, HS TROP, CKMB, CK, CBC, PTT, PT #### [address] Eosinophils/100 WBC (Bld) 0.2 % Normal . [facility] Comment on above: Performed By: #### D DIMER, BMP, BNP, HS TROP, CKMB, CK, CBC, PTT, PT #### [address] Erythrocyte distribution width (RBC) [Ratio] 13.3 % Normal 12.0-14.8 [facility] Comment on above: Performed By: #### D DIMER, BMP, BNP, HS TROP, CKMB, CK, CBC, PTT, PT #### [address] Hematocrit (Bld) [Volume fraction] 38.5 % Low 38.8-50.0 [facility] Comment on above: Performed By: #### D DIMER, BMP, BNP, HS TROP, CKMB, CK, CBC, PTT, PT #### [address] Hemoglobin (Bld) [Mass/Vol] 12.7 g/dL Low 13.0-17.0 [facility] Comment on above: Performed By: #### D DIMER, BMP, BNP, HS TROP, CKMB, CK, CBC, PTT, PT #### [address] Lymphocytes (Bld) [#/Vol] 0.6 10*3/uL Low 1.00-4.8 [facility] Comment on above: Performed By: #### D DIMER, BMP, BNP, HS TROP, CKMB, CK, CBC, PTT, PT #### [address] Lymphocytes/100 WBC (Bld) 4.3 % Normal . [facility] Comment on above: Performed By: #### D DIMER, BMP, BNP, HS TROP, CKMB, CK, CBC, PTT, PT #### [address] MCH (RBC) [Entitic mass] 32.0 pg Normal 27.5-35.2 [facility] Comment on above: Performed By: #### D DIMER, BMP, BNP, HS TROP, CKMB, CK, CBC, PTT, PT #### [address] MCV (RBC) [Entitic vol] 97.4 fL Normal 83.5-101 [facility] Comment on above: Performed By: #### D DIMER, BMP, BNP, HS TROP, CKMB, CK, CBC, PTT, PT #### [address] Mean Corpuscular HGB Conc 32.9 g/dL Normal 32.5-35.6 [facility] Comment on above: Performed By: #### D DIMER, BMP, BNP, HS TROP, CKMB, CK, CBC, PTT, PT #### [address] Monocytes (Bld) [#/Vol] 0.9 10*3/uL High 0.0-0.8 [facility] Comment on above: Performed By: #### D DIMER, BMP, BNP, HS TROP, CKMB, CK, CBC, PTT, PT #### [address] Monocytes/100 WBC (Bld) 6.6 % Normal . [facility] Comment on above: Performed By: #### D DIMER, BMP, BNP, HS TROP, CKMB, CK, CBC, PTT, PT #### [address] Neutrophils (Bld) [#/Vol] 12.3 10*3/uL High 1.8-7.7 [facility] Comment on above: Performed By: #### D DIMER, BMP, BNP, HS TROP, CKMB, CK, CBC, PTT, PT #### [place] [address] [place] Neutrophils/100 WBC (Bld) 88.6 % Normal . [facility] Comment on above: Performed By: #### D DIMER, BMP, BNP, HS TROP, CKMB, CK, CBC, PTT, PT #### [facility] [address] Nucleated RBC/100 WBC (Bld) [Ratio] 0.1 % Normal 0-0.5 [facility] Comment on above: Performed By: #### D DIMER, BMP, BNP, HS TROP, CKMB, CK, CBC, PTT, PT #### [facility] [address] Platelet mean volume (Bld) [Entitic vol] 8.7 fL Normal 6.6-10.1 [facility] Comment on above: Performed By: #### D DIMER, BMP, BNP, HS TROP, CKMB, CK, CBC, PTT, PT #### [facility] [address] Platelets (Bld) [#/Vol] 254 10*3/uL Normal 150-450 [facility] Comment on above: Performed By: #### D DIMER, BMP, BNP, HS TROP, CKMB, CK, CBC, PTT, PT #### [address] RBC (Bld) [#/Vol] 3.96 10*6/uL Normal 3.90-5.60 [facility] Comment on above: Performed By: #### D DIMER, BMP, BNP, HS TROP, CKMB, CK, CBC, PTT, PT #### [facility] [address] WBC (Bld) [#/Vol] 13.8 10*3/uL High 4.5-11.0 [facility] Comment on above: Performed By: #### D DIMER, BMP, BNP, HS TROP, CKMB, CK, CBC, PTT, PT #### [facility] [address] Comprehensive Metabolic Pane ritika 01-01-2022 Albumin [Mass/Vol] 3.4 g/dL Normal 3.2-5.5 [facility] Comment on above: Performed By: #### D DIMER, BMP, BNP, HS TROP, CKMB, CK, CBC, PTT, PT #### [address] Albumin/Globulin [Mass ratio] 1.2 {ratio} Normal [facility] Comment on above: Performed By: #### D DIMER, BMP, BNP, HS TROP, CKMB, CK, CBC, PTT, PT #### [address] ALP [Catalytic activity/Vol] 45 U/L Normal 32-92 [facility] Comment on above: Performed By: #### D DIMER, BMP, BNP, HS TROP, CKMB, CK, CBC, PTT, PT #### [address] ALT [Catalytic activity/Vol] 13 U/L Normal 10-60 [facility] Comment on above: Performed By: #### D DIMER, BMP, BNP, HS TROP, CKMB, CK, CBC, PTT, PT #### [address] AST [Catalytic activity/Vol] 18 U/L Normal 10-42 [facility] Comment on above: Performed By: #### D DIMER, BMP, BNP, HS TROP, CKMB, CK, CBC, PTT, PT #### [address] Bilirubin [Mass/Vol] 1.1 mg/dL Normal 0.3-1.2 [facility] Comment on above: Performed By: #### D DIMER, BMP, BNP, HS TROP, CKMB, CK, CBC, PTT, PT #### [address] Calcium [Mass/Vol] 8.9 mg/dL Normal 8.2-10.2 [facility] Comment on above: Performed By: #### D DIMER, BMP, BNP, HS TROP, CKMB, CK, CBC, PTT, PT #### [facility] [address] Chloride [Moles/Vol] 91 mmol/L Low 95-114 [facility] Comment on above: Performed By: #### D DIMER, BMP, BNP, HS TROP, CKMB, CK, CBC, PTT, PT #### [facility] [address] CO2 [Moles/Vol] 30.0 mmol/L Normal 22.0-30.0 [facility] Comment on above: Performed By: #### D DIMER, BMP, BNP, HS TROP, CKMB, CK, CBC, PTT, PT #### [facility] [address] Creatinine [Mass/Vol] 0.70 mg/dL Normal 0.64-1.27 [facility] Comment on above: Performed By: #### D DIMER, BMP, BNP, HS TROP, CKMB, CK, CBC, PTT, PT #### [address] Creatinine Clr Calc Pharmacy 62.94 [facility] Comment on above: Performed By: #### D DIMER, BMP, BNP, HS TROP, CKMB, CK, CBC, PTT, PT #### [address] Estimated GFR ( [place] > 60 [facility] Comment on above: Result Comment: GFR estimated reference range: According to KDOQI guidelines, <60 ml/min/1.73m2 is sufficient to diagnose a patient with chronic kidney disease. Performed By: #### D DIMER, BMP, BNP, HS TROP, CKMB, CK, CBC, PTT, PT #### [address] Estimated GFR (Non- Am > 60 [facility] Comment on above: Performed By: #### D DIMER, BMP, BNP, HS TROP, CKMB, CK, CBC, PTT, PT #### [address] Globulin (S) [Mass/Vol] 2.9 g/dL Normal [facility] Comment on above: Performed By: #### D DIMER, BMP, BNP, HS TROP, CKMB, CK, CBC, PTT, PT #### [facility] [address] Glucose [Mass/Vol] 170 mg/dL High 70-100 [facility] Comment on above: Result Comment: [place] Glucose Reference Range is dependent on time and content of last meal. Glucose of more than 200 mg/dL in a nonstressed, ambulatory subject supports the diagnosis of Diabetes Mellitus. ADA recommended reference range Performed By: #### D DIMER, BMP, BNP, HS TROP, CKMB, CK, CBC, PTT, PT #### [facility] [address] Potassium [Moles/Vol] 3.8 mmol/L Normal 3.5-5.1 [facility] Comment on above: Performed By: #### D DIMER, BMP, BNP, HS TROP, CKMB, CK, CBC, PTT, PT #### [facility] [address] Protein [Mass/Vol] 6.3 g/dL Normal 6.1-7.9 [facility] Comment on above: Performed By: #### D DIMER, BMP, BNP, HS TROP, CKMB, CK, CBC, PTT, PT #### [facility] [address] Sodium [Moles/Vol] 131 mmol/L Low 136-146 [facility] Comment on above: Performed By: #### D DIMER, BMP, BNP, HS TROP, CKMB, CK, CBC, PTT, PT #### [facility] [address] Urea nitrogen [Mass/Vol] 19 mg/dL Normal 9-23 [facility] Comment on above: Performed By: #### D DIMER, BMP, BNP, HS TROP, CKMB, CK, CBC, PTT, PT #### [facility] [address] Creatine Kinaseon 01-01-2022 CK [Catalytic activity/Vol] 74 U/L Normal 22-269 [facility] Comment on above: Performed By: #### D DIMER, BMP, BNP, HS TROP, CKMB, CK, CBC, PTT, PT #### [facility] [address] Creatinine Kinase MBon 01-01 CK.MB [Mass/Vol] 3.5 ng/mL Normal 0.6-6.3 [facility] Comment on above: Performed By: #### D DIMER, BMP, BNP, HS TROP, CKMB, CK, CBC, PTT, PT #### [facility] [address] CKMB Relative Index 4.7 % High 0.00-2.50 [facility] Comment on above: Performed By: #### D DIMER, BMP, BNP, HS TROP, CKMB, CK, CBC, PTT, PT #### [facility] [address] D-Dimer High Sensitivityon 0 01-01-2022 D-Dimer High Sensitivity 280 ng/mL High 0-243 [facility] Comment on above: Result Comment: The reference range for D-dimer is <243 ng/mL D-dimer units. D-dimer results must be used in conjunction with a clinical pretest probability (PTP) assessment model for deep vein thrombosis (DVT) and pulmonary embolism (PE). Results <230 ng/mL d-dimer units can be used as a negative predictor in patients with low or moderate probability for DVT/PE. Results above the exclusion threshold of 230 ng/ml D-dimer units for DVT/PE may indicate the need for further diagnostic testing. D-Dimer can be increased in hospitalized patients due to co-morbid conditions. PERFORMED BY: [place] [address] PATHOLOGIST [employer] NICHOLE BOLDEN M.D. Performed By: #### D DIMER, BMP, BNP, HS TROP, CKMB, CK, CBC, PTT, PT #### [facility] [address] Dipstick and Microscopicon 0 01-01-2022 Appearance (U) Clear Normal Clear [facility] Comment on above: Order Comment: Name Collection Type:: Clean-Voided Midstream Performed By: #### D DIMER, BMP, BNP, HS TROP, CKMB, CK, CBC, PTT, PT #### [address] Bacteria,Urine None Seen Normal None Seen [facility] Comment on above: Order Comment: Name Collection Type:: Clean-Voided Midstream Performed By: #### D DIMER, BMP, BNP, HS TROP, CKMB, CK, CBC, PTT, PT #### [address] Bilirubin,Urine Negative Normal Negative [facility] Comment on above: Order Comment: Name Collection Type:: Clean-Voided Midstream Performed By: #### D DIMER, BMP, BNP, HS TROP, CKMB, CK, CBC, PTT, PT #### [address] Color (U) Chambers Critically abnormal Yellow [facility] Comment on above: Order Comment: Name Collection Type:: Clean-Voided Midstream Performed By: #### D DIMER, BMP, BNP, HS TROP, CKMB, CK, CBC, PTT, PT #### [facility] [address] [place] [address] Glucose Ql (U) Normal Normal Normal [facility] Comment on above: Order Comment: Name Collection Type:: Clean-Voided Midstream Performed By: #### D DIMER, BMP, BNP, HS TROP, CKMB, CK, CBC, PTT, PT #### [address] Hyaline Casts,Urine 0-8 Normal 0-8 [facility] Comment on above: Order Comment: Name Collection Type:: Clean-Voided Midstream Result Comment: PERF ORMED BY: [place] [address] PATHOLOGIST [employer]ICE [employer] NICHOLE BOLDEN M.D. Performed By: #### D DIMER, BMP, BNP, HS TROP, CKMB, CK, CBC, PTT, PT #### [address] Ketones Ql (U) Negative Normal Negative [facility] Comment on above: Order Comment: Name Collection Type:: Clean-Voided Midstream Performed By: #### D DIMER, BMP, BNP, HS TROP, CKMB, CK, CBC, PTT, PT #### [address] Leukocyte esterase Test strip Ql (U) Negative Normal Negative [facility] Comment on above: Order Comment: Name Collection Type:: Clean-Voided Midstream Performed By: #### D DIMER, BMP, BNP, HS TROP, CKMB, CK, CBC, PTT, PT #### [address] Nitrite,Urine Negative Normal Negative [facility] Comment on above: Order Comment: Name Collection Type:: Clean-Voided Midstream Performed By: #### D DIMER, BMP, BNP, HS TROP, CKMB, CK, CBC, PTT, PT #### [address] Occult Blood,Urine Negative Normal Negative [facility] Comment on above: Order Comment: Name Collection Type:: Clean-Voided Midstream Result Comment: PERF ORMED BY: [place] [address] PATHOLOGIST VICE [employer] NICHOLE BOLDEN M.D. Performed By: #### D DIMER, BMP, BNP, HS TROP, CKMB, CK, CBC, PTT, PT #### [address] pH (U) 5.5 [pH] Normal 5.0-9.0 [facility] Comment on above: Order Comment: Name Collection Type:: Clean-Voided Midstream Performed By: #### D DIMER, BMP, BNP, HS TROP, CKMB, CK, CBC, PTT, PT #### [address] Protein,Urine Negative Normal Negative [facility] Comment on above: Order Comment: Name Collection Type:: Clean-Voided Midstream Performed By: #### D DIMER, BMP, BNP, HS TROP, CKMB, CK, CBC, PTT, PT #### [address] RBC LM.HPF (Urine sed) [#/Area] 0 /[HPF] Normal 0-4 [facility] Comment on above: Order Comment: Name Collection Type:: Clean-Voided Midstream Performed By: #### D DIMER, BMP, BNP, HS TROP, CKMB, CK, CBC, PTT, PT #### [address] Specificy [place],Urine 1.020 Normal 1.001-1.030 [facility] Comment on above: Order Comment: Name Collection Type:: Clean-Voided Midstream Performed By: #### D DIMER, BMP, BNP, HS TROP, CKMB, CK, CBC, PTT, PT #### [address] Squamous Epithelial Cell,Urine 1-2 Normal 0-2 [facility] Comment on above: Order Comment: Name Collection Type:: Clean-Voided Midstream Performed By: #### D DIMER, BMP, BNP, HS TROP, CKMB, CK, CBC, PTT, PT #### [address] Urobilinogen,Urine Normal Normal Normal [facility] Comment on above: Order Comment: Name Collection Type:: Clean-Voided Midstream Performed By: #### D DIMER, BMP, BNP, HS TROP, CKMB, CK, CBC, PTT, PT #### [address] WBC,Urine None Seen Normal 0-4 [facility] Comment on above: Order Comment: Name Collection Type:: Clean-Voided Midstream Performed By: #### D DIMER, BMP, BNP, HS TROP, CKMB, CK, CBC, PTT, PT #### [address] ECG 12 lead ECGon 01-01-2022 ECG 12 lead ECG [facility] Main [place] [address] [place] [address] Electrocardiograph Report Signed Patient: Esa Leavitt MR#: [id number] 623 : 1935 Acct:[id number] Age/Sex: 86 / M ADM Date: 01/01/22 Loc: 3T Room: [address] [place] [address] Type: DIS IN Attending Dr: Mohsen Muniz MD Ordering Provider: Ronit Caruso MD Date of Service: 01/01/22 ECG/ECG 12 lead ECG: pt evaluation Copies to: Test Reason : Blood Pressure : / mmHG Vent. Rate : 055 BPM Atrial Rate : 163 BPM P-R Int : 000 ms QRS Dur : 092 ms QT Int : 404 ms P-R-T Axes : 000 -32 039 degrees QTc Int : 386 ms AV dissociation Left axis deviation Abnormal ECG No previous ECGs available Confirmed by NASRE[facility] JOHNS [facility] ([id number]) on 01/03/2022 1:15:10 PM Referred By: HOSP Electronically Signed By:DEMETRA IRAHETA MD FAC Transcribed By: MUS Signed By Demetra Iraheta MD, FACC 01/03/22 1315 Normal [facility] ECG 12 lead ECG [facility] [place] [address] Electrocardiograph Report Signed Patient: sEa Leavitt MR#: [id number] 623 : 1935 Acct:[id number] Age/Sex: 86 / M ADM Date: 01/01/22 Loc: Room: [address] [place] [address] Type: DIS IN Attending Dr: Mohsen Muniz MD Ordering Provider: Bouchra Duncan MD Date of Service: 12/31/21 ECG/ECG 12 lead ECG: CHEST PAIN Copies to: Test Reason : Blood Pressure : / mmHG Vent. Rate : 099 BPM Atrial Rate : 099 BPM P-R Int : 000 ms QRS Dur : 088 ms QT Int : 350 ms P-R-T Axes : 000 -65 078 degrees QTc Int : 449 ms Atrial fibrillation Left axis deviation Septal infarct , age undetermined Abnormal ECG No previous ECGs available Confirmed by BOUCHRA DUNCAN MD ([id number]) on 01/01/2022 1:37:41 AM Referred By: Electronically Signed By:BOUCHRA DUNCAN MD Transcribed By: MUS Signed By Bouchra Duncan MD 12/07 11/26 0137 [facility] echo transthoracicon [facility] echo transthoracic [facility] Main [place] [address] [place] [id number] Echocardiogram Signed Patient: Esa Leavitt MR#: [id number] 623 : 1935 Acct:[id number] Age/Sex: 86 / M ADM Date: 01/01/22 Loc: Room: [address] [place] [address] Type: DIS IN Attending Dr: Mohsen Muniz MD Ordering Provider: Anabella Stone MD Date of Service: 01/01/22 [facility] transthoracic: Chest Pain Copies to: MD Demetra Le MD, [facility] Weight: 157 lb Performed By: VERO Blum BSA: 1.8 m2 BP: 105/56 mmHg HR: 67 Reason For Study: Chest Pain History: DM, HTN, HLD, former smoker, alcohol use Interpretation Summary Mild concentric left ventricular hypertrophy. Ejection Fraction = 60-65%. There is trace tricuspid regurgitation. There is no prior echocardiogram noted for this patient. Procedure/Quality: A two-dimensional transthoracic echocardiogram with color flow and Doppler was performed. The study was technically good in quality. There is no prior echocardiogram noted for this patient. Left Ventricle: Mild concentric left ventricular hypertrophy. Left ventricular systolic function is normal. Ejection Fraction = 60-65%. Left Atrium: The left atrium appears normal in size. The atrial septum appears normal. Right Atrium: The right atrium appears normal in size. Right Ventricle: The right ventricular size, thickness and function are normal. Aortic Valve: The aortic valve is mildly sclerotic. The aortic valve is trileaflet. Mitral Valve: The mitral valve is mildly sclerotic. Tricuspid Valve: The tricuspid valve is normal. There is trace tricuspid regurgitation. Pulmonic Valve: The pulmonic valve is not well seen, but is grossly normal. Arteries: The aortic root is normal size. Pericardium/Pleura : No pericardial effusion seen. There is no pleural effusion. IVC/Hepatic Viens: The IVC is normal in size with an inspiratory collapse of greater then 50%, suggesting normal right atrial pressure. Miscellaneous: No thrombus, vegetation or mass is seen. Measurements with Normals IVSd: 1.2 cm (0.7-1.1 cm)LVIDd: 3.8 cm (3.7-5.4 cm) LVPWd: 1.2 cm (0.7-1.1 cm)LVIDs: 1.9 cm (2.3-3.6 cm) LA dimension: 2.9 cm (2.3-4.0 cm)Ao root diam: 2.7 cm(2.0-3.6 cm) asc Aorta Diam: 3.0 cm(2.1-3.4cm) Doppler with Normals RVSP(TR): 29.5 mmHg (18-35mmHg) MV E max shannon: 73.7 cm/sec(0.8-1.3m/s) MV A max shannon: 69.4 cm/sec(0.0-0.0m/s) MV E/A: 1.1 (<1.5) MMode/2D Measurements Calculations RVDd: 3.0 cm FS: 51.2 % Ao root area: 5.9 cm2 TAPSE: 2.2 cm EDV(Teich): 61.6 ml RV S Shannon: 9.2 cm/sec ESV(Teich): 10.4 ml EF(Teich): 83.1 % Doppler Measurements Calculations MV dec time: 0.33 sec E/E' lat: MV dec slope: TV max P.3 220.3 cm/sec2 24.0 mmHg E/E' med: 15.1 __ TR max shannon: 247.3 cm/sec TR max P.5 mmHg RAP systole: 5.0 mmHg Transcribed By: MARY Performed At: 08/27/22 1031 Signed By: Demetra Iraheta MD, [facility] 01/02/22 1142 Normal [facility] Free T4 (Free Thyroxine)on 0 01-01-2022 Free T4 [Mass/Vol] 0.95 ng/dL Normal 0.61-1.12 [facility] Comment on above: Performed By: #### D DIMER, BMP, BNP, HS TROP, CKMB, CK, CBC, PTT, PT #### [facility] [address] [place] [id number] [facility] Glucose Poct Glucometerson 0 01-01-2022 Glucose [Mass/Vol] 159 mg/dL Normal [facility] Comment on above: Result Comment: [place] om Glucose Reference Range is dependent on time and content of last meal. Glucose of more than 200 mg/dL in a nonstressed, ambulatory subject supports the diagnosis of Diabetes Mellitus. PERFORMED BY: [place] [address] PATHOLOGIST [employer] NICHOLE BOLDEN M.D. Performed By: #### D DIMER, BMP, BNP, HS TROP, CKMB, CK, CBC, PTT, PT #### [facility] [address] [place] [address] [place] Glucose [Mass/Vol] 130 mg/dL Normal [facility] Comment on above: Result Comment: [place] om Glucose Reference Range is dependent on time and content of last meal. Glucose of more than 200 mg/dL in a nonstressed, ambulatory subject supports the diagnosis of Diabetes Mellitus. PERFORMED BY: [place] [address] PATHOLOGIST [employer]ICE PRESIDENT [employer] NICHOLE BOLDEN M.D. Performed By: #### D DIMER, BMP, BNP, HS TROP, CKMB, CK, CBC, PTT, PT #### [facility] [address] [place] [address] [place] Glucose [Mass/Vol] 176 mg/dL Normal [facility] Comment on above: Result Comment: [place] om Glucose Reference Range is dependent on time and content of last meal. Glucose of more than 200 mg/dL in a nonstressed, ambulatory subject supports the diagnosis of Diabetes Mellitus. PERFORMED BY: [place] [address] PATHOLOGIST VICE PRESIDENT [employer]ICATION[employer] NICHOLE BOLDEN M.D. Performed By: #### D DIMER, BMP, BNP, HS TROP, CKMB, CK, CBC, PTT, PT #### [facility] [address] [place] [id number] Glucose [Mass/Vol] 180 mg/dL Normal [facility] Comment on above: Result Comment: [facility] Glucose Reference Range is dependent on time and content of last meal. Glucose of more than 200 mg/dL in a nonstressed, ambulatory subject supports the diagnosis of Diabetes Mellitus. PERFORMED BY: [address] [address] PATHOLOGIST VICE PRESIDENT [employer]ICATION[employer] NICHOLE BOLDEN M.D. Performed By: #### G LULS #### Point of Care testing , Ketones Auto test strip (U) [Mass/Vol]Ordered By: Ronit Caruso on 01-01-2022 Ketones (U) [Mass/Vol] Negative Negative [facility] Laboratory - Chemistry and C hemistry - challengeOrdered By: Anabella Dunlap on 01-01-2022 Magnesium [Mass/Vol] 1.7 mg/dL 1.6-2.6 [facility] Laboratory - UrinalysisOrder ed By: Ronit Caruso on 01-01-2022 Hyaline casts LM Ql (Urine sed) 0-8 [LPF] 0-8 [facility] Magnesiumon 01-01-2022 Magnesium [Mass/Vol] 1.7 mg/dL Normal 1.6-2.6 [facility] Comment on above: Result Comment: PERF ORMED BY: [place] [address] PATHOLOGIST VICE PRESIDENT [employer] NICHOLE BOLDEN M.D. Performed By: #### D DIMER, BMP, BNP, HS TROP, CKMB, CK, CBC, PTT, PT #### [place] [id number] [facility] Nitrite Test strip Ql (U)Ord ered By: Ronit Caruso on 01-01-2022 Nitrite Ql (U) Negative Negative [facility] No Panel InformationOrdered By: Bouchra Duncan on 01-01-2022 SARS Antigen (LFIA) [facility] Partial Thromboplastin Timeo n 01-01-2022 aPTT Coag (Bld) [Time] 29.3 s Normal 25.1-36.5 [facility] Comment on above: Performed By: #### D DIMER, BMP, BNP, HS TROP, CKMB, CK, CBC, PTT, PT #### [facility] [address] Protein Auto test strip (U) [Mass/Vol]Ordered By: Ronit Caruso on 01-01-2022 Protein (U) [Mass/Vol] Negative Negative [facility] Prothrombin Time INRon 01-01 INR Coag (PPP) [Relative time] 1.1 {INR} Normal [facility] Comment on above: Result Comment: INR Therapeutic Range A) Pre- and Peroperative OAT started two weeks before surgery. NOT HIP SURGERY: 1.5 - 2.5 HIP SURGERY: 2 - 3 B) Primary and secondary prevention of venous THROMBOSIS: 2 - 3 C) Active venous thrombosis, pulmonary embolism and prevention of recurrent venous thrombosis: 2 - 3 D) Prevention of arterial thromboembolism including patients with mechanical heart valves: 3 - 4.5 Performed By: #### D DIMER, BMP, BNP, HS TROP, CKMB, CK, CBC, PTT, PT #### [facility] [address] [place] [id number] [facility] PT Coag (PPP) [Time] 12.6 s Normal 9.0-12.9 [facility] Comment on above: Performed By: #### D DIMER, BMP, BNP, HS TROP, CKMB, CK, CBC, PTT, PT #### [facility] [address] [place] [id number] [facility] Ya Ag Negativeon 01-02-20 Ya Ag Negative Negative Normal Negative [facility] Comment on above: Result Comment: This is a duplicate Ya SARS Antigen (GEREMIAS) result to be used for statistical tracking purpose only. PERFORMED BY: [place] [address] PATHOLOGIST VICE PRESIDENT [employer]ICATION[employer] NICHOLE BOLDEN M.D. Performed By: #### D DIMER, BMP, BNP, HS TROP, CKMB, CK, CBC, PTT, PT #### [address] Specific gravity Auto test s trip (U) [Rel density]Ordered By: Ronit Caruso on 01-01-2022 Specific gravity (U) [Rel density] 1.020 1.001-1.030 [facility] Squamous epithelial cells de tection in urine sediment by light microscopyOrdered By: Ronit Caruso on 01-01-2022 Epithelial cells.squamous LM Ql (Urine sed) 1-2 [HPF] 0-2 [facility] Thyroid Stimulating Hormoneo n 01-01-2022 TSH Qn 1.39 m[IU]/L Normal 0.45-5.33 [facility] Comment on above: Result Comment: PERF ORMED BY: [place] [address] PATHOLOGIST VICE PRESIDENT [employer]ICATION[employer] NICHOLE BOLDEN M.D. Performed By: #### D DIMER, BMP, BNP, HS TROP, CKMB, CK, CBC, PTT, PT #### [address] Troponin I High Sensitivityo n 01-01-2022 Troponin I High Sensitivity 8 pg/mL Normal 0-20 [facility] Comment on above: Result Comment: PERF ORMED BY: [place] [address] PATHOLOGIST VICE PRESIDENT [employer]ICATION[employer] NICHOLE BOLDEN M.D. Performed By: #### D DIMER, BMP, BNP, HS TROP, CKMB, CK, CBC, PTT, PT #### [place] [id number] [facility] Troponin I High Sensitivity 8 pg/mL Normal 0-20 [facility] Comment on above: Result Comment: PERF ORMED BY: [place] [address] PATHOLOGIST VICE PRESIDENT [employer] COMM[employer]ICATION[employer] NICHOLE BOLDEN M.D. Performed By: #### D DIMER, BMP, BNP, HS TROP, CKMB, CK, CBC, PTT, PT #### [facility] [address] [place] [address] [place] Troponin I High Sensitivity 5 pg/mL Normal 0-20 [facility] Comment on above: Result Comment: PERF ORMED BY: [place] [address] PATHOLOGIST VICE PRESIDENT [employer] COMM[employer]ICATION[employer] NICHOLE BOLDEN M.D. Performed By: #### D DIMER, BMP, BNP, HS TROP, CKMB, CK, CBC, PTT, PT #### [facility] [address] [place] [address] Troponin I High Sensitivity 4 pg/mL Normal 0-20 [facility] Comment on above: Result Comment: PERF ORMED BY: [place] [address] PATHOLOGIST VICE PRESIDENT [employer] COMM[employer]ICATION[employer] NICHOLE BOLDEN M.D. Performed By: #### D DIMER, BMP, BNP, HS TROP, CKMB, CK, CBC, PTT, PT #### [facility] [address] [place] [address] [place] Troponin I.cardiac [Mass/vol ume] in Serum or Plasma by High sensitivity methodOrdered By: Anabella Dunlap on 01-01-2022 Troponin I.cardiac High sensitivity method [Mass/Vol] 8 pg/mL 0-20 [facility] Urine bacteria detection by automated methodOrdered By: Ronit Caruso on 01-01-2022 Bacteria Auto Ql (U) None seen None Seen [facility] Urine clarity by refractomet ry automatedOrdered By: Ronit Caruso on 01-01-2022 Clarity Refractometry automated (U) Clear Clear [facility] Urine glucose measurement by automated test strip (mass/volume)Ordered By: Ronit Caruso on 01-01-2022 Glucose Auto test strip (U) [Mass/Vol] Normal mg/dL Normal [facility] Urine hemoglobin detection b y automated test stripOrdered By: Ronit Caruso on 01-01-2022 Hemoglobin Auto test strip Ql (U) Negative Negative [facility] Urine leukocyte esterase det ection by automated test stripOrdered By: Ronit Caruso on 01-01-2022 Leukocyte esterase Auto test strip Ql (U) Negative Negative [facility] Urobilinogen Auto test strip (U) [Mass/Vol]Ordered By: Ronit Caruso on 01-01-2022 Urobilinogen (U) [Mass/Vol] Normal mg/dL Normal [facility] XR chest 1V portableon 01-01 XR chest 1V portable [facility] [address] XRay Report Signed Patient: Esa Leavitt MR#: [id number] 623 : 1935 Acct:[id number] Age/Sex: 86 / M ADM Date: 01/01/22 Loc: Room: [address] [place] [address] Type: ADM IN Attending Dr: Ronit Caruso MD Copies to: MD Ronit Crystal MD Ordering Provider: Bouchra Duncan MD Date of Service: 12/31/21 XR/XR chest 1V portable: CHEST PAIN Plain film chestsingle view HISTORY:Midsternal chest pain. COMPARISON:None FINDINGS:Large hiatal hernia. The cardiac, mediastinal and hilar silhouettes are within normal limits. No acute lung process, pleural effusion or pneumothorax identified. RIGHT shoulder degeneration. Minimal LEFT basilar atelectasis/scarri ng. XR/XR chest 1V portable IMPRESSION: No acute process. Impression dictated by: Brooks Easley M.D.01/01/2022 8:02 AM Dictation Location: [place] [address] Transcribed By: [facility] 01/01/22801 Dictated By: Brooks Easley DO 01/01/22800 Signed By: 01/01/22801 Normal [facility] pH Auto test strip (U)Ordere d By: Ronit Caruso on 01-01-2022 pH (U) 5.5 [pH] 5.0-9.0 [facility] Activated partial thrombopla stin time (aPTT) in platelet poor plasma by coagulation aOrdered By: Bouchra Duncan on 12-31-2021 aPTT Coag (PPP) [Time] 29.3 s 25.1-36.5 [facility] COVID-19 Positive/NegativeOr dered By: Bouchra Duncan on 12-31-2021 SARS-CoV-2 (COVID-19) N gene JEFF+probe Ql (Resp) Negative Negative [facility] Comment on above: Testing for SARS-CoV -2 by RT-PCR This test was developed and its performance characteristics determined by [employer] ([employer]) and validated at the [facility]. This test has not been FDA cleared or approved. This test has been authorized by FDA under an Emergency Use Authorization (EUA). This test has been validated in accordance with the FDA's Guidance Document (Policy for Diagnostics Testing in Laboratories Certified to Perform High Complexity Testing under CLIA prior to Emergency Use Authorization for Coronavirus Disease-2019 during the Public Health Emergency) issued on August 08, 2019. This test is only authorized for the duration of time the declaration that circumstances exist justifying the authorization of the emergency use of in vitro diagnostic tests for detection of SARS-CoV-2 virus and/or diagnosis of COVID-19 infection under section 564(b)(1) of the Act, 21 U.S.C. 360bbb-3(b)(1), unless the authorization is terminated or revoked sooner. COVID-19 SOFIAOrdered By: Shannan Duncan on 12-31-2021 SARS-CoV+SARS-CoV-2 (COVID-19) Ag IA.rapid Ql (Resp) Negative Negative [facility] Comment on above: This is a duplicate Ya SARS Antigen (GEREMIAS) result to be used for statistical tracking purpose only. Creatine kinase [Enzymatic a ctivity/volume] in Serum or PlasmaOrdered By: Bouchra Duncan on 12-31-2021 CK [Catalytic activity/Vol] 74 U/L 22-269 [facility] Laboratory - Chemistry and C hemistry - challengeOrdered By: Bouchra Duncan on 12-31-2021 Natriuretic peptide B (Bld) [Mass/Vol] 157.0 pg/mL 5-100 [facility] Laboratory - CoagulationOrde red By: Bouchra Duncan on 12-31-2021 PT Coag (PPP) [Time] 12.6 s 9.0-12.9 [facility] Laboratory - Microbiology an d Antimicrobial susceptibilityOrdered By: Bouchra Duncan on 12-31-2021 SARS-CoV-2 (COVID-19) RNA JEFF+probe Ql (Unsp spec) N/A [facility] No Panel InformationOrdered By: Bouchar Duncan on 12-31-2021 D-Dimer Quantitative (PE/DVT) 280 ng/mL 0-243 [facility] Comment on above: The reference range for D-dimer is <243 ng/mL D-dimer units. D-dimer results must be used in conjunction with a clinical pretest probability (PTP) assessment model for deep vein thrombosis (DVT) and pulmonary embolism (PE). Results <230 ng/mL d-dimer units can be used as a negative predictor in patients with low or moderate probability for DVT/PE. Results above the exclusion threshold of 230 ng/ml D-dimer units for DVT/PE may indicate the need for further diagnostic testing. D-Dimer can be increased in hospitalized patients due to co-morbid conditions. Platelet poor plasma interna tional normalized ratio (INR) by coagulation assay (relatOrdered By: Bouchra Duncan on 12-31-2021 INR Coag (PPP) [Relative time] 1.1 {INR} [facility] Comment on above: INR Therapeutic Rang e A) Pre- and Peroperative OAT started two weeks before surgery. NOT HIP SURGERY: 1.5 - 2.5 HIP SURGERY: 2 - 3 B) Primary and secondary prevention of venous THROMBOSIS: 2 - 3 C) Active venous thrombosis, pulmonary embolism and prevention of recurrent venous thrombosis: 2 - 3 D) Prevention of arterial thromboembolism including patients with mechanical heart valves: 3 - 4.5 Serum or plasma creatine kin ase MB (CKMB)/total creatine kinase (CK) ratio by calculaOrdered By: Bouchra Duncan on 12-31-2021 CK.MB Calc [Catalytic fraction] 4.7 % 0.00-2.50 [facility] Serum or plasma creatine kin ase MB measurement (mass/volume)Ordered By: Bouchra Duncan on 12-31-2021 CK.MB [Mass/Vol] 3.5 ng/mL 0.6-6.3 [facility] Thyroxine (T4) free [Mass/vo lume] in Serum or PlasmaOrdered By: Anabella Dunlap on 12-31-2021 Free T4 [Mass/Vol] 0.95 ng/dL 0.61-1.12 [facility] Comprehensive Metabolic Pane ritika 10-07-2021 Albumin [Mass/Vol] 4.2 g/dL Normal 3.6-5.1 [facility] Specialist Comment on above: Performed By: #### C MP #### [facility] [address] [place], [place] [id number] Albumin/Globulin [Mass ratio] 1.5 {ratio} Normal 1.0-2.5 [facility] Comment on above: Performed By: #### C MP #### [facility] [address] [place], [place] [id number] ALP [Catalytic activity/Vol] 74 U/L Normal 40-129 [facility] Comment on above: Performed By: #### C MP #### [facility] [address] [place], [place] [id number] ALT [Catalytic activity/Vol] 14 U/L Normal 9-46 [facility] Specialist Comment on above: Result Comment: 04/07 Female reference range changed. Performed By: #### C MP #### [facility] [address] [place], [place] [id number] Anion gap [Moles/Vol] 18 mmol/L Normal 12-20 [facility] Comment on above: Result Comment: Effe ctive 05/13/2019 reference range changed. Performed By: #### C MP #### [facility] [address] [place], [place] [id number] AST [Catalytic activity/Vol] 18 U/L Normal 10-40 [facility] Comment on above: Performed By: #### C MP #### [facility] [address] [place], [place] [id number] Bilirubin [Mass/Vol] 0.61 mg/dL Normal 0.30-1.20 [facility] Comment on above: Performed By: #### C MP #### [facility] [address] [place], [place] [id number] BUN/CREA 52 Ratio High 6-22 [facility] Specialist Comment on above: Performed By: #### C MP #### [facility] [address] [place], [place] [id number] Calcium [Mass/Vol] 9.4 mg/dL Normal 8.6-10.2 [facility] [employer] Comment on above: Performed By: #### C MP #### [facility] [address] [place], [place] [id number] Chloride [Moles/Vol] 98 mmol/L Normal 98-107 [facility] Comment on above: Performed By: #### C MP #### [facility] [address] [place], [place] [id number] CO2 [Moles/Vol] 26 mmol/L Normal 20-31 [facility] Comment on above: Performed By: #### C MP #### [facility] [address] [place], [place] [id number] Creatinine [Mass/Vol] 0.5 mg/dL Low 0.7-1.4 [facility] Comment on above: Performed By: #### C MP #### [facility] [address] [place], [place] [id number] eGFRAA 200 mL/min/1.73m2 Normal >60 [facility] Specialist Comment on above: Performed By: #### C MP #### [facility] [address] [place], [place] [id number] eGFRNAA 165 mL/min/1.73m2 Normal >60 [facility] Comment on above: Performed By: #### C MP #### [facility] [address] [place], [place] [id number] Globulin (S) [Mass/Vol] 2.8 g/dL Normal 1.9-3.7 [facility] Comment on above: Performed By: #### C MP #### [facility] [address] [place], [place] [id number] Glucose [Mass/Vol] 119 mg/dL High 65-99 [facility] Comment on above: Result Comment: For FASTING Glucose --- ADA reference ranges: Normal 65-99 mg/dl Prediabetes 100-125 Diabetes >/= 126 Performed By: #### C MP #### [facility] [address] [place], [place] [id number] Potassium [Moles/Vol] 4.5 mmol/L Normal 3.5-5.5 [facility] [place] [employer] Comment on above: Result Comment: Spec patria is hemolyzed. Results may be affected. Performed By: #### C MP #### [facility] [address] [place], [place] [id number] Protein [Mass/Vol] 7.0 g/dL Normal 6.1-8.1 [facility] [place] [employer] Comment on above: Performed By: #### C MP #### [facility] [address] [place], [place] [id number] Sodium [Moles/Vol] 137 mmol/L Normal 135-146 [facility] [place] [employer] Comment on above: Performed By: #### C MP #### [facility] [address] [place], [place] [id number] Urea nitrogen [Mass/Vol] 25 mg/dL Normal 7-25 [facility] Comment on above: Performed By: #### C MP #### [facility] [address] [place], [place] [id number] MG MAMM YANY DIAG W CADon MG MAMM YANY DIAG W CAD Patient: ESA LEAVITT Exam Date: 10/16/2020 : 1935 Gender:M Ordering : DR BETO BECKWITH M.D. Admission #: [id number] Family : Order #: [id number] CLICK HERE TO VIEW EXAM RADIOLOGY REPORT PROCEDURE: MAMMOGRAM BILATERAL DIAGNOSTIC DIGITAL WITH COMPUTER AIDED DETECTION, 10/16/2020, 10:11 ULTRASOUND BREAST LEFT LIMITED, 10/16/2020, 10:47 COMPARISON: None. INDICATIONS: Lump in lower inner quadrant of left breast Calculator Name NCI Breast Cancer Risk Assessment Tool 5 Year Breast Cancer Risk Not Applicable. Lifetime Breast Cancer Risk Not Applicable. Personal Breast Cancer No Personal Ovarian Cancer No Treatments None Family Cancers None LOCATION: [facility] BREAST COMPOSITION: Almost entirely fatty. FINDINGS: DIAGNOSTIC CATEGORY 2--BENIGN FINDING: RIGHT BREAST: No significant suspicious finding. LEFT BREAST: Retroareolar 4.0 x 3.7 cm area focal asymmetry corresponding to the patient's pain. Ultrasound demonstrates increase in normal appearing retroareolar fibroglandular tissue. Findings are consistent with benign gynecomastia RECOMMENDATIONS: CLINICAL EVALUATION. PLEASE NOTE: A NORMAL MAMMOGRAM DOES NOT EXCLUDE THE POSSIBILITY OF BREAST CANCER. A CLINICALLY SUSPICIOUS PALPABLE LUMP SHOULD BE BIOPSIED. Dictated by: Andreas Menezes MD on 10/16/2020 at 11:02 Approved by: Andreas Menezes MD on 10/16/2020 at 11:04 Normal [facility] Vital Signs Date Time Vital Sign Value Performing Clinician Facility 01-25-2022 10:50-0400 PAIN LEVEL 0 {score} Dr. Minh Bucio [facility] 01-25-2022 10:42-0400 Body temperature 97 [degF] Dr. Minh Bucio [facility] 01-25-2022 10:42-0400 Diastolic blood pressure 80 mm[Hg] Dr. Minh Kim [facility] 01-25-2022 10:42-0400 Heart rate 78 /min Dr. Minh Kim [facility] 01-25-2022 10:42-0400 Respiratory rate 18 /min Dr. Minh Bucio [facility] 01-25-2022 10:42-0400 Systolic blood pressure 133 mm[Hg] Dr. Minh Kim [facility] 01-25-2022 07:57-0400 PAIN LEVEL 1 {score[facility]-25-[facility]22 06:38-0400 PAIN LEVEL 2 {score} Dr. Minh Bucio [facility] 01-25-2022 01:51-0400 Body temperature 97.1 [degF] Dr. Minh Bucio [facility] 01-25-2022 01:51-0400 Diastolic blood pressure 65 mm[facility]Hg[facility] 01-25-2022 01:51-0400 Heart rate 87 /min Dr. Minh Bucio [facility] 01-25-2022 01:51-0400 Respiratory rate 17 /min Dr. Minh Bucio [facility] 01-25-2022 01:51-0400 Systolic blood pressure 162 mm[facility]Hg[facility] 01-25-2022 01:05-0400 PAIN LEVEL 0 {score} Dr. Minh Bucio [facility] 01-24-2022 11:04-0400 PAIN LEVEL 0 {score} Dr. Minh Bucio [facility] 01-24-2022 01:42-0400 Body temperature 96.6 [degF] Dr. Minh Bucio [facility] 01-24-2022 01:42-0400 Diastolic blood pressure 60 mm[Hg[facility] 01-24-2022 01:42-0400 Heart rate 75 /min Dr. Minh Bucio [facility] 01-24-2022 01:42-0400 Respiratory rate 16 /[facility] 01-24-2022 01:42-0400 Systolic blood pressure 144 mm[Hg[facility] 01-24-2022 00:10-0400 PAIN LEVEL 0 {score} Dr. Minh Bucio [facility] 01-23-2022 17:21-0400 PAIN LEVEL 0 {score} Dr. Minh Bucio [facility] 01-23-2022 00:23-0400 PAIN LEVEL 1 {score} Dr. Minh Bucio [facility] 01-22-2022 18:57-0400 Body temperature 97.2 [degF[facility] 01-22-2022 18:57-0400 Diastolic blood pressure 52 mm[Hg] Dr. Minh Kim [facility] 01-22-2022 18:57-0400 Heart rate 72 /min Dr. Minh Groverjuwan [facility] 01-22-2022 18:57-0400 Respiratory rate 1797 /[facility] 01-22-2022 18:57-0400 Systolic blood pressure 111 mm[Hg] Dr. Minh Kim [facility] 01-22-2022 08:31-0400 PAIN LEVEL 0 {score[facility] 01-22-2022 06:38-0400 PAIN LEVEL 0 {score} Dr. Minh Bucio [facility] 01-22-2022 05:33-0400 PAIN LEVEL 3 {score[facility] 01-22-2022 01:10-0400 PAIN LEVEL 0 {score} [facility] 01-22-2022 01:08-0400 Body temperature 96.4 [degF[facility] 01-22-2022 01:08-0400 Diastolic blood pressure 57 mm[Hg[facility] 01-22-2022 01:08-0400 Heart rate 70 /min Dr. Minh Bucio [facility] 01-22-2022 01:08-0400 Respiratory rate 14 /min Dr. Minh Bucio [facility] 01-22-2022 01:08-0400 Systolic blood pressure 165 mm[Hg[facility] 01-21-2022 11:37-0400 PAIN LEVEL 2 {score} Dr. Minh Bucio [facility] 01-21-2022 10:07-0400 PAIN LEVEL 4 {score} Dr. Minh Bucio [facility] 01-21-2022 10:06-0400 PAIN LEVEL 4 {score} Dr. Minh Bucio [facility] 01-21-2022 05:22-0400 Body temperature 97.8 [degF] Dr. Minh Bucio [facility] 01-21-2022 05:22-0400 Diastolic blood pressure 67 mm[Hg] [facility] Minh [facility]ju[facility] 01-21-2022 05:22-0400 Heart rate 79 /min Dr. Minh Bucio [facility] 01-21-2022 05:22-0400 Respiratory rate 16 /min Dr. Minh Bucio [facility] 01-21-2022 05:22-0400 Systolic blood pressure 143 mm[Hg[facility] 01-21-2022 04:22-0400 PAIN LEVEL 0 {score} Dr. Minh Bucio [facility] 01-20-2022 10:32-0400 PAIN LEVEL 1 {score} Dr. Minh Bucio [facility] 01-20-2022 04:13-0400 Body temperature 97 [degF] Dr. Minh Bucio [facility] 01-20-2022 04:13-0400 Diastolic blood pressure 64 mm[Hg] Dr. Minh Kim [facility] 01-20-2022 04:13-0400 Heart rate 88 /min Dr. Minh Bucio [facility] 01-20-2022 04:13-0400 Respiratory rate 20 /min Dr. Minh Bucio [facility] 01-20-2022 04:13-0400 Systolic blood pressure 143 mm[Hg] Dr. Minh Kim [facility] 01-20-2022 03:36-0400 PAIN LEVEL 0 {score} Dr. Minh Bucio [facility] 01-19-2022 20:16-0400 PAIN LEVEL 1 {score} Dr. Minh Bucio [facility] 01-19-2022 19:58-0400 Body temperature 96.8 [degF] Dr. Minh Bucio [facility] 01-19-2022 19:58-0400 Diastolic blood pressure 62 mm[Hg[facility] 01-19-2022 19:58-0400 Heart rate 73 /min Dr. Minh Bucio [facility] 01-19-2022 19:58-0400 Respiratory rate 18 /min Dr. Minh Bucio [facility] 01-19-2022 19:58-0400 Systolic blood pressure 147 mm[Hg] Dr. Minh Kim [facility] 01-19-2022 19:10-0400 PAIN LEVEL 2 {score} Dr. Minh Bucio [facility] 01-19-2022 19:10-0400 PAIN LEVEL 2 {score} [facility] 01-19-2022 10:41-0400 PAIN LEVEL 0 {score} Dr. Minh Bucio [facility] 01-19-2022 06:00-0400 Oxygen saturation in Blood 92 % Dr. Minh Kim [facility] 01-19-2022 02:18-0400 Body temperature 97.8 [degF] Dr. Minh Kim [facility] 01-19-2022 02:18-0400 Diastolic blood pressure 70 mm[Hg] Dr. Minh Kim [facility] 01-19-2022 02:18-0400 Heart rate 87 /min Dr. Minh Kim [facility] 01-19-2022 02:18-0400 Respiratory rate 20 /min Dr. Minh Kim [facility] 01-19-2022 02:18-0400 Systolic blood pressure 158 mm[Hg] Dr. Minh Kim [facility] 01-19-2022 02:16-0400 PAIN LEVEL 1 {score} Dr. Minh Bucio [facility] 01-19-2022 02:16-0400 PAIN LEVEL 1 {score} [facility] 00:01-0400 PAIN LEVEL 2 {score} [facility] 01-18-2022 19:38-0400 PAIN LEVEL 0 {score} Dr. Minh Bucio [facility] 01-18-2022 16:25-0400 Body temperature 97.5 [degF] Dr. Minh Kim [facility] 01-18-2022 16:25-0400 Diastolic blood pressure 56 mm[Hg] Dr. Minh Kim [facility] 01-18-2022 16:25-0400 Heart rate 76 /min Dr. Minh Kim [facility] 01-18-2022 16:25-0400 Respiratory rate 15 /min Dr. Minh Kim [facility] 01-18-2022 16:25-0400 Systolic blood pressure 128 mm[Hg] Dr. Minh Kim [facility] 01-18-2022 11:17-0400 PAIN LEVEL 0 {score} [facility] 01-18-2022 09:31-0400 PAIN LEVEL 5 {score} Dr. Minh Kim [facility] 01-18-2022 09:30-0400 PAIN LEVEL 5 {score} [facility] 01-18-2022 02:08-0400 PAIN LEVEL 0 {score} [facility] 01-17-2022 16:19-0400 PAIN LEVEL 0 {score} [facility] 01-17-2022 09:50-0400 PAIN LEVEL 0 {score} Dr. Minh Bucio [facility] 01-17-2022 06:42-0400 PAIN LEVEL 0 {score} Dr. Minh Bucio [facility] 01-17-2022 00:29-0400 PAIN LEVEL 3 {score} [facility] 01-17-2022 00:29-0400 PAIN LEVEL 3 {score} [facility] 01-16-2022 17:57-0400 Body temperature 97.4 [degF] [facility] 01-16-2022 17:57-0400 Diastolic blood pressure 67 mm[Hg] Dr. Minh Kim [facility] 01-16-2022 17:57-0400 Heart rate 77 /min Dr. Minh Kim [facility] 01-16-2022 17:57-0400 Oxygen saturation in Blood 97 % Dr. Minh Kim [facility] 01-16-2022 17:57-0400 Respiratory rate 17 /min Dr. Minh Kim [facility] 01-16-2022 17:57-0400 Systolic blood pressure 153 mm[Hg] Dr. Minh Kim [facility] 01-16-2022 11:52-0400 Body weight 73.[address] Minh Bucio [facility] 01-16-2022 10:02-0400 PAIN LEVEL 0 {score} Dr. Minh Bucio [facility] 01-16-2022 09:26-0400 Body temperature 98 [degF] [facility] 01-16-2022 09:26-0400 Diastolic blood pressure 55 mm[Hg] Dr. Minh Kim [facility] 01-16-2022 09:26-0400 Heart rate 81 /[facility] 01-16-2022 09:26-0400 Respiratory rate 17 /min Dr. Minh Bucio [facility] 01-16-2022 09:26-0400 Systolic blood pressure 113 mm[Hg] Dr. Minh Kim [facility] 01-16-2022 09:03-0400 PAIN LEVEL 1 {score} Dr. Minh Kim [facility] 01-16-2022 07:56-0400 PAIN LEVEL 4 {score} Dr. Minh Kim [facility] 01-16-2022 02:08-0400 PAIN LEVEL 0 {score} Dr. Minh Kim [facility] 01-15-2022 21:31-0400 Body temperature 97.6 [degF] Dr. Minh Bucio [facility] 01-15-2022 21:31-0400 Diastolic blood pressure 57 mm[Hg] Dr. Minh Kim [facility] 01-15-2022 21:31-0400 Heart rate 75 /[facility] 01-15-2022 21:31-0400 Oxygen saturation in Blood 97 % Dr. Minh Kim [facility] 01-15-2022 21:31-0400 Respiratory rate 20 /min Dr. Minh Bucio [facility] 01-15-2022 21:31-0400 Systolic blood pressure 110 mm[Hg[facility] 01-15-2022 11:34-0400 Body temperature 97.9 [degF] Dr. Minh Bucio [facility] 01-15-2022 11:34-0400 Diastolic blood pressure 66 mm[Hg] Dr. Minh Groverjuwan [facility] 01-15-2022 11:34-0400 Heart rate 97 /min Dr. Minh Bucio [facility] 01-15-2022 11:34-0400 Respiratory rate 17 /min Dr. Minh Bucio [facility] 01-15-2022 11:34-0400 Systolic blood pressure 102 mm[Hg] Dr. Minh Kim [facility] 01-15-2022 09:58-0400 PAIN LEVEL 1 {score} Dr. Minh Bucio [facility] 01-15-2022 05:43-0400 Body temperature 97.6 [degF] Dr. Minh Bucio [facility] 01-15-2022 05:43-0400 Diastolic blood pressure 58 mm[Hg] Dr. Minh Kim [facility] 01-15-2022 05:43-0400 Heart rate 68 /min Dr. Minh Bucio [facility] 01-15-2022 05:43-0400 Respiratory rate 16 /min Dr. Minh Bucio [facility] 01-15-2022 05:43-0400 Systolic blood pressure 190 mm[Hg] Dr. Minh Kim [facility] 01-15-2022 00:04-0400 PAIN LEVEL 0 {score} Dr. Minh Bucio [facility] 01-14-2022 20:03-0400 PAIN LEVEL 0 {score} Dr. Minh Bucio [facility] 01-14-2022 16:01-0400 Body temperature 97.6 [degF] Dr. Minh Bucio [facility] 01-14-2022 16:01-0400 Diastolic blood pressure 58 mm[Hg] Dr. Minh Kim [facility] 01-14-2022 16:01-0400 Heart rate 68 /[facility] 01-14-2022 16:01-0400 Systolic blood pressure 140 mm[Hg] Dr. Minh Kim [facility] 01-14-2022 10:14-0400 PAIN LEVEL 0 {score} Dr. Minh Bucio [facility] 01-14-2022 04:44-0400 PAIN LEVEL 0 {score} Dr. Minh Bucio [facility] 01-13-2022 21:34-0400 Body temperature 97.2 [degF] Dr. Minh Bucio [facility] 01-13-2022 21:34-0400 Diastolic blood pressure 65 mm[Hg] Dr. Minh Kim [facility] 01-13-2022 21:34-0400 Heart rate 75 /[facility] 01-13-2022 21:34-0400 Systolic blood pressure 139 mm[Hg] Dr. Minh Kim [facility] 01-13-2022 20:03-0400 PAIN LEVEL 0 {score} Dr. Minh Bucio [facility] 01-13-2022 12:41-0400 Body temperature 97.2 [degF] Dr. Minh Bucio [facility] 01-13-2022 12:41-0400 Diastolic blood pressure 66 mm[Hg[facility] 01-13-2022 12:41-0400 Heart rate 82 /min Dr. Minh Bucio [facility] 01-13-2022 12:41-0400 Respiratory rate 16 /[facility] 01-13-2022 12:41-0400 Systolic blood pressure 125 mm[Hg] Dr. Minh Kim [facility] 01-13-2022 09:40-0400 PAIN LEVEL 0 {score} Dr. Minh Bucio [facility] 01-13-2022 00:58-0400 PAIN LEVEL 0 {score} Dr. Minh Bucio [facility] 01-12-2022 11:51-0400 Body temperature 97.7 [degF] Dr. Minh Bucio [facility] 01-12-2022 11:51-0400 Diastolic blood pressure 60 mm[Hg] Dr. Minh Kim [facility] 01-12-2022 11:51-0400 Heart rate 80 /[facility] 01-12-2022 11:51-0400 Respiratory rate 16 /min Dr. Minh Bucio [facility] 01-12-2022 11:51-0400 Systolic blood pressure 130 mm[Hg] Dr. Minh Kim [facility] 01-12-2022 10:17-0400 PAIN LEVEL 0 {score} Dr. Minh Bucio [facility] 01-12-2022 04:33-0400 Body temperature 96.8 [degF] Dr. Minh Bucio [facility] 01-12-2022 04:33-0400 Diastolic blood pressure 67 mm[Hg[facility] 01-12-2022 04:33-0400 Heart rate 66 /min Dr. Minh Bucio [facility] 01-12-2022 04:33-0400 Respiratory rate 16 /min Dr. Minh Bucio [facility] 01-12-2022 04:33-0400 Systolic blood pressure 143 mm[Hg] Dr. Minh Kim [facility] 01-11-2022 16:00-0400 Body temperature 97.1 [degF] Dr. Minh Bucio [facility] 01-11-2022 16:00-0400 Diastolic blood pressure 67 mm[Hg] Dr. Minh Kim [facility] 01-11-2022 16:00-0400 Heart rate 66 /min Dr. Minh Bucio [facility] 01-11-2022 16:00-0400 Respiratory rate 18 /min Dr. Minh Bucio [facility] 01-11-2022 16:00-0400 Systolic blood pressure 143 mm[Hg] Dr. Minh Kim [facility] 01-11-2022 09:48-0400 PAIN LEVEL 0 {score} Dr. Minh Bucio [facility] 01-11-2022 09:07-0400 Body temperature 97.5 [degF] Dr. Minh Bucio [facility] 01-11-2022 09:07-0400 Diastolic blood pressure 74 mm[Hg[facility] 01-11-2022 09:07-0400 Heart rate 90 /min Dr. Minh Bucio [facility] 01-11-2022 09:07-0400 Oxygen saturation in Blood 97 % Dr. Minh Kim [facility] 01-11-2022 09:07-0400 Respiratory rate 20 /[facility] 01-11-2022 09:07-0400 Systolic blood pressure 141 mm[Hg] Dr. Minh Kim [facility] 01-11-2022 04:32-0400 Body temperature 97.6 [degF] Dr. Minh Bucio [facility] 01-11-2022 04:32-0400 Diastolic blood pressure 52 mm[Hg] Dr. Minh Kim [facility] 01-11-2022 04:32-0400 Heart rate 85 /min Dr. Minh Bucio [facility] 01-11-2022 04:32-0400 Respiratory rate 17 /min Dr. Minh [facility] 01-11-2022 04:32-0400 Systolic blood pressure 134 mm[Hg] Dr. Minh Kim [facility] 01-11-2022 00:16-0400 PAIN LEVEL 0 {score} Dr. Minh Bucio [facility] 01-10-2022 15:56-0400 Body temperature 97.7 [degF] Dr. Minh Bucio [facility] 01-10-2022 15:56-0400 Diastolic blood pressure 92 mm[Hg[facility] 01-10-2022 15:56-0400 Heart rate 75 /min Dr. Minh Bucio [facility] 01-10-2022 15:56-0400 Respiratory rate 20 /min Dr. Minh Bucio [facility] 01-10-2022 15:56-0400 Systolic blood pressure 142 mm[Hg] Dr. Minh Kim [facility] 01-10-2022 04:23-0400 Body temperature 98.2 [degF] [facility] 01-10-2022 04:23-0400 Diastolic blood pressure 58 mm[Hg] Dr. Minh Kim [facility] 01-10-2022 04:23-0400 Heart rate 70 /min Dr. Minh Bucio [facility] 01-10-2022 04:23-0400 Respiratory rate 16 /[facility] 01-10-2022 04:23-0400 Systolic blood pressure 127 mm[Hg] Dr. Minh Kim [facility] 01-09-2022 18:43-0400 PAIN LEVEL 0 {score} Dr. Minh Bucio [facility] 01-09-2022 10:11-0400 PAIN LEVEL 0 {score} Dr. Minh Bucio [facility] 01-09-2022 05:23-0400 PAIN LEVEL 0 {score} Dr. Minh Bucio [facility] 01-08-2022 19:46-0400 PAIN LEVEL 0 {score} [facility] 01-08-2022 09:38-0400 PAIN LEVEL 0 {score} Dr. Minh Bucio [facility] 01-07-2022 19:44-0400 Body temperature 96.7 [degF] Dr. Minh Bucio [facility] 01-07-2022 19:44-0400 Diastolic blood pressure 60 mm[Hg] Dr. Minh Kim [facility] 01-07-2022 19:44-0400 Heart rate 74 /[facility] 01-07-2022 19:44-0400 Respiratory rate 14 /[facility] 01-07-2022 19:44-0400 Systolic blood pressure 134 mm[Hg] Dr. Minh Kim [facility] 01-07-2022 12:14-0400 Body temperature 97.3 [degF] Dr. Minh Bucio [facility] 01-07-2022 12:14-0400 Diastolic blood pressure 59 mm[Hg] Dr. Minh Kim [facility] 01-07-2022 12:14-0400 Heart rate 68 /min Dr. Minh Bucio [facility] 01-07-2022 12:14-0400 Respiratory rate 17 /[facility] 01-07-2022 12:14-0400 Systolic blood pressure 125 mm[Hg[facility] 01-07-2022 11:26-0400 Body temperature 97.3 [degF] Dr. Minh Groverjuwan [facility] 01-07-2022 11:26-0400 Diastolic blood pressure 59 mm[Hg] Dr. Minh Kim [facility] 01-07-2022 11:26-0400 Heart rate 68 /[facility] 01-07-2022 11:26-0400 Oxygen saturation in Blood 94 % Dr. Minh Kim [facility] 01-07-2022 11:26-0400 Respiratory rate 17 /[facility] 01-07-2022 11:26-0400 Systolic blood pressure 125 mm[Hg] Dr. Minh Kim [facility] 01-07-2022 09:26-0400 PAIN LEVEL 0 {score} Dr. Minh Bucio [facility] 01-07-2022 00:21-0400 PAIN LEVEL 0 {score} Dr. Minh Bucio [facility] 01-06-2022 18:24-0400 Body temperature 96.8 [degF] Dr. Minh Bucio [facility] 01-06-2022 18:24-0400 Diastolic blood pressure 89 mm[Hg] Dr. Minh Kim [facility] 01-06-2022 18:24-0400 Heart rate 77 /min Dr. Minh Bucio [facility] 01-06-2022 18:24-0400 Respiratory rate 18 /min Dr. Minh Bucio [facility] 01-06-2022 18:24-0400 Systolic blood pressure 155 mm[Hg] Dr. Minh Kim [facility] 01-06-2022 16:35-0400 Body weight 73.[address] [facility] 01-06-2022 15:33-0400 PAIN LEVEL 0 {score} Dr. Minh Bucio [facility] 01-06-2022 15:32-0400 Body temperature 97.7 [degF] Dr. Minh Kim [facility] 01-06-2022 15:32-0400 Diastolic blood pressure 70 mm[Hg] Dr. Minh Kim [facility] 01-06-2022 15:32-0400 Heart rate 74 /min Dr. Minh Bucio [facility] 01-06-2022 15:32-0400 Oxygen saturation in Blood 94 % Dr. Minh Kim [facility] 01-06-2022 15:32-0400 Respiratory rate 20 /[facility] 01-06-2022 15:32-0400 Systolic blood pressure 160 mm[Hg] Dr. Minh Kim [facility] 01-06-2022 11:44-0400 Body temperature 97.8 [degF] II Beto Beckwith Work Phone: [facility] 01-06-2022 11:44-0400 Diastolic blood pressure 80 mm[Hg] II Beto Beckwith Work Phone: [facility] 01-06-2022 11:44-0400 Heart rate 73 /min II Beto Beckwith Work Phone: [facility] 01-06-2022 11:44-0400 Respiratory rate 16 /min II Beto Beckwith Work Phone: [facility] 01-06-2022 11:44-0400 SaO2% (BldA) [Mass fraction] 97 % II Beto Beckwith Work Phone: [facility] 01-06-2022 11:44-0400 Systolic blood pressure 132 mm[Hg] II Beto Beckwith Work Phone: [facility] 01-06-2022 08:00-0400 Inhaled oxygen flow rate 2 L/min II Beto Beckwith Work Phone: [facility] 01-06-2022 06:22-0400 Body weight 74 kg II Beto Beckwith Work Phone: [facility] 01-04-2022 13:29-0400 Body height 172.72 cm II Beto Beckwith Work Phone: [facility] Encounters Encounter Date Encounter Type Care Provider Facility Start: 03-29-2023 End: 03-29-2023 ambulatory BETO BECKWITH Not Available Start: 01-25-2022 End: 01-25-2022 ambulatory Minh Kim Facility:[facility] Start: 01-25-2022 End: 01-25-2022 Patient encounter procedure II Beto Beckwith Work Phone: [facility] Start: 01-11-2022 End: 01-11-2022 ambulatory Minh Kim Facility:[facility] Start: 01-11-2022 End: 01-11-2022 Patient encounter procedure II Beto Beckwith Work Phone: [facility] Start: 01-06-2022 End: 01-25-2022 Evaluation and management of inpatient Minh Kim [facility] Start: 01-04-2022 ambulatory Demetra Ovallesim Facility :[id number] Start: 01-03-2022 ambulatory Filipe Mcginnis y:[id number] Start: 01-02-2022 ambulatory Mccrary Iraheta Facility :[id number] Start: 01-01-2022 End: 01-06-2022 Evaluation and management of inpatient Anabella Herbert Anatoly Valentinejonnathan Facility:[facility] Start: 01-01-2022 ambulatory Mccrary Iraheta Facility :[id number] Start: 01-01-2022 End: 01-06-2022 Evaluation and management of inpatient II Beto Beckwith Work Phone: [facility] Start: 10-16-2020 End: 10-17-[address] BETO BECKWITH Facility:[facility] Start: 07-29-2020 End: 07-30-2020 ambulatory NONE LISTED REQUEST Facility: Start: 07-02-2020 End: 07-03-2020 ambulatory NONE LISTED REQUEST Facility:[facility] Start: 06-25-2020 End: 06-26-2020 ambulatory NONE LISTED REQUEST Facility: Procedures Date Procedure Procedure Detail Performing Clinician Start: 01-03-2022 Radionuclide myocard ial perfusion stress study II Beto Beckwith Work Phone: Start: 01-01-2022 CT of thorax with contrast II Beot Beckwith Work Phone: Start: 12-31-2021 Plain chest X-ray II Charles Beckwith Work Phone: Blood culture for bacteria, including anaerobic screen II Beto Beckwith Work Phone: SARS Antigen (LFIA) II Luis Beckwith Work Phone: Plan of Treatment Date Care Activity Detail Author Start: 01-06-2022 [facility] Work Phone: Start: 01-01-2022 Referral to tinner helper [facility] Work Phone: Start: 01-01-2022 Hospital admission [facility] Work Phone: Patient referral [facility] Work Phone: Immunizations Immunization Date Immunization Notes Care Provider Dana vasquez 03-15-2021 influenza, high-dose seasonal, quadrivalent, .7mL dose, preservative free Dr. Minh Kim [facility] 07-29-2020 SARS-COV-2 (COVID-19 ) vaccine, mRNA, spike protein, LNP, bivalent booster, preservative free, 50 mcg/0.5 mL or 25 mcg/0.[address] Minh Kim [facility] 07-02-2020 SARS-COV-2 (COVID-19 ) vaccine, mRNA, spike protein, LNP, bivalent booster, preservative free, 50 mcg/0.5 mL or 25 mcg/0.[address] Minh Kim [facility] 03-05-2019 pneumococcal polysaccharide vaccine, [address] Minh Kim [facility] 05-11-2016 tuberculin skin test ; unspecified formulation Dr. Minh Kim [facility] 05-04-2016 tuberculin skin test ; unspecified formulation [facility] 05-03-[address] Minh Kmi [facility] 03-07-2016 pneumococcal conjuga te vaccine, [address] Minh Kim [facility] Payers Date Payer Category Payer Unknown [id number] 2021 Medicare [id number] 2021 Self-pay [id number] 1959 Self-pay [id number] 1959 Unknown [id number] 1934 Unknown [id number] 2.16.84 [id number] 1934 Unknown [id number] 2.16. [id number] 1934 Unknown [id number] 2.16. [id number] 1934 Unknown [id number] 2.16. [id number] 1934 Unknown [id number] 2.16. [id number] 1934 Unknown [id number] 2.16. [id number] 1934 Unknown [id number] 2.16.840 [id number] Unknown [id number] 2.16.84 [id number] Unknown [id number] 2.16.84 [id number] Unknown [id number] 2.16.84 [id number] Unknown [place] [employer]/[place] [id number] Unknown [employer] [id number] Unknown [id number] 2.16.8 [id number] Unknown [id number] 2.16.8 [id number] Unknown [id number] 2.16.8 [id number] Social History Date Type Detail Facility Start: [facility] Start: 1935 Sex Assigned At Male F [facility] Start: 01-06-2022 Unknown if vivian ruth smoked [facility] Goals Date Patient Goal Desired Activity /State Functional Status Date Assessment Result Facility 01-06-2022 Functional status Patient at Baseline [facility] Work Phone: Mental Status Date Assessment Result Facility 01-06-2022 Cognitive function Cognitive Sta tus Patient at Baseline [facility] Work Phone: Clinical Notes 01-01-2022 to 01-05-2022 Note Date & Type Note Facility 01-05-2022 Progress note Note Date/Time January 05, 2022 12:53pm [facility] [address] [place] [address] Hospitalist Progress Note Signed Patient: Esa Leavitt MR#: [id number] : 1935 Acct:[id number] Age/Sex: 86 / M Adm Date: 2 Loc: Room: [address] [place] [address] Type: ADM IN Attending Dr: Mohsen Muniz MD Copies to: ~ Date of Service: 01/05/2022 Subjective Subjective Narrative: Patient has been seen and examined today. He notes no major complaints at this time. Notes that his productive cough has improved overall. General -awake, alert, oriented ?3, not in acute distress Cardiovascular -S1 with S2 Pulmonary - clear to auscultation bilaterally Gastrointestinal - abdomen is soft, nondistended, nontender, bowel sounds positive, there is no rigidity, no rebound Extremities -no edema Neurological -no focal neurological dysfunction noted Exam Physical Exam Vital Signs: Temp Pulse Resp BP Pulse Ox O2 Del Method O2 Flow Rate 97.7 F 79 18 166/75 H 94 L Room Air 2 01/05/22 07:57 01/05/22 07:57 01/05/22 07:57 01/05/22 07:57 01/05/22 07:57 01/05/22 08:05 01/04/22 08:00 Objective Lab Results CBC & Chem 7: 01/04/22 06:26 01/04/22 08:06 Microbiology Results Microbiology 01/01/22 14:54 Blood - Right Forearm Blood Culture - Preliminary No Growth 3 Days 01/01/22 14:58 Blood - Left Hand Blood Culture - Preliminary No Growth 3 Days Meds Allergies and Active Meds Allergies No Known Allergies Allergy (Verified 04/05/21 18:11) Active Meds: Active Medications Generic Name Dose Route Start Last Admin Trade Name Freq PRN Reason Stop Dose Admin Acetaminophen 650 mg 01/03/22 10:05 01/03/22 16:41 Acetaminophen 325 Mg Tablet PO 01/03/23 10:04 650 mg Q6H PRN Administration Pain Apixaban 5 mg 01/01/22 09:00 01/05/22 08:05 Apixaban 5 Mg Tablet PO 01/01/23 08:59 5 mg BID MASOOD Administration Aspirin 81 mg 01/01/22 09:00 01/05/22 08:04 Aspirin 81 Mg Tab.Chew PO 01/01/23 08:59 81 mg DAILY MASOOD Administration Atorvastatin Calcium 20 mg 01/01/22 09:00 01/05/22 08:04 Atorvastatin 20 Mg Tablet PO 01/01/23 08:59 20 mg DAILY MASOOD Administration Cyanocobalamin 1,000 mcg 01/05/22 09:00 01/05/22 08:04 Cyanocobalamin 1,000 Mcg Tablet PO 01/05/23 08:59 1,000 mcg QAM MASOOD Administration Dextrose 0 gm 01/01/22 14:39 Dextrose 50% In Water 25 Gm/50 Ml Syringe IV-PUSH 01/01/23 14:38 PRN PRN Hypoglycemia Diltiazem HCl 180 mg 01/03/22 14:00 01/05/22 08:04 Diltiazem Cd.24hr 180 Mg Cap.Er.24h PO 01/03/23 13:59 180 mg DAILY MASOOD Administration Glucose 0 gm 01/01/22 14:39 Dextrose 40% Gel 15 Gm Tube PO 01/01/23 14:38 PRN PRN Hypoglycemia Guaifenesin 1,200 mg 01/04/22 11:45 01/04/22 21:36 Guaifenesin 600 Mg Tab.Er.12h PO 01/04/23 11:44 1,200 mg BID PRN Administration Congestion Potassium Chloride 20 meq/ 260 mls @ 130 mls/hr 01/01/22 00:08 Sodium Chloride IV 01/01/23 00:07 DAILY PRN Hypokalemia Potassium Chloride 40 meq/ 520 mls @ 130 mls/hr 01/01/22 00:08 Sodium Chloride IV 01/01/23 00:07 DAILY PRN Hypokalemia Magnesium Sulfate 2 gm in 50 mls @ 25 mls/hr 01/01/22 00:08 Magnesium Sulf 2gm-*Swfi* IV 01/01/23 00:07 DAILY PRN Magnesium Level < 1.5 Insulin Aspart 0 units 01/01/22 17:00 01/05/22 08:04 Insulin Aspart 300 Units/3 Ml Insuln.Pen SUBCUT 01/01/23 16:59 Not Given TID.WM.[facility] Protocol Ketorolac Tromethamine 30 mg 01/03/22 17:44 01/05/22 08:05 Ketorolac Tromethamine 30 Mg/Ml Vial IV-PUSH 01/08/22 17:43 30 mg Q6H PRN Administration Severe Pain Labetalol HCl 5 mg 01/01/22 00:08 Labetalol 100 Mg/20 Ml Vial IV-PUSH 01/01/23 00:07 Q4H PRN Hypertension Metoprolol Succinate 50 mg 01/01/22 09:00 01/05/22 08:05 Metoprolol Succinate 50 Mg Tab.Er.24h PO 01/01/23 08:59 50 mg DAILY [facility] Administration Nitroglycerin 0.4 mg 01/01/22 00:08 Nitroglycerin 0.4 Mg Tab.Subl SUBLINGUAL 01/01/23 00:07 Q5M PRN Chest Pain Omeprazole 20 mg 01/06/22 09:00 Omeprazole 20 Mg Capsule.Dr PO 01/06/23 08:59 DAILY [facility] Ondansetron HCl 4 mg 01/01/22 00:08 Ondansetron 4 Mg/2 Ml Vial IV-PUSH 01/01/23 00:07 Q8H PRN Nausea And Vomiting Sodium Chloride 0 ml 12/31/21 22:26 01/05/22 00:53 Sodium Chloride 0.9 % 10 Ml Syringe IV-PUSH 12/31/22 22:25 10 ml PRN PRN Administration Flush Sodium Chloride 0 ml 01/03/22 08:00 Sodium Chloride 0.9 % 10 Ml Syringe IV-PUSH 01/03/23 07:59 PRN PRN Flush A&P - Hospitalist Assessment/Plan (1) Chest pain: (2) Atrial fibrillation with rapid ventricular response: Plan Midsternal Chest Pain Abnormal stress test Patient underwent stress testing, and there was evidence of small reversible apical perfusion defect. Cardiology has discussed this with patient and he willremain on medical therapy only for this time. They may consider invasive investigation with cardiac cath as an outpatient, after strengthening of patient. ? Continue with telemetry - Cardiology following, cardiac meds per their recommendations Paroxysmal A. fib, new diagnosis ? Reportedly no history of A. fib ? Currently rate controlled ? Cont patient on Eliquis given his elevated [id number] score Generalized deconditioning PT/OT assessment recommends SNF versus acute inpatient rehab. Inpatient rehab has denied. Patient reported lives at home alone -Case management to assist in placement in SNF -Replete B12 Leukocytosis, fevers resolved, I do not appreciate any focal signs of infection,blood cultures so far negative Urinalysis no signs of infection, chest x-ray clear without infiltrate *Chronic Medical Issues 1. Hypertension 2. Diabetes 3. Hyperlipidemia ? Continue his home medications Documented By: Mohsen Muniz MD 2 1249 Signed By: <Electronically signed by Mohsen Muniz MD> 01/05/22 1253 [facility] Work Phone: 1(755) 348-207208-30-2022 Progress note Author Demetra Iraheta [facility] January 04, 2022 4:33pm Note Date/Time January 04, 2022 4: 29pm [facility] [address] [place] [address] Cardiology Progress Note Signed Patient: Esa Leavitt MR#: [id number] : 1935 Acct:[id number] Age/Sex: 86 / M Adm Date: 2 Loc: Room: [address] [place] [address] Type: ADM IN Attending Dr: Mohsen Muniz MD Copies to: ~ Date of Service: 01/04/2022 Subjective Principal diagnosis: Chest pain Interval history: No recurrence since admission, patient had nuclear stress test which showed small apical ischemia. Discussed the case with the patient's and they agreed for the time being to let him stay on current medications let him recoverfrom the event since he is very weak and in few weeks consider cardiac catheterization. His past medical therapy should suffice. He has no recurrenceof atrial fibrillation Exam Physical Exam Vital Signs: Temp Pulse Resp BP Pulse Ox O2 Del Method O2 Flow Rate 97.9 F 62 18 169/76 H 97 Room Air 2 01/04/22 15:55 01/04/22 15:55 01/04/22 15:55 01/04/22 15:55 01/04/22 15:55 01/04/22 15:55 01/04/22 08:00 Const General: cooperative, healthy appearing, comfortable and no acute distress Nutritional Appearance: average body habitus Orientation: alert, awake and oriented x3 HEENT Head: normal to inspection, normocephalic and atraumatic Ears: hearing grossly normal bilaterally Nose: external nose normal Face and sinus: normal facial exam Eyes Conjunctivae: conjunctivae normal Pupils: PERRL Neck Neck: normal visual inspection, full ROM, no lymphadenopathy, trachea midline and supple Neck mass: No Thyroid: thyroid normal Carotids: normal carotid upstroke Resp Effort & Inspection: normal respiratory effort Auscultation: clear to auscultation bilaterally Cardio Jugular venous pressure: no JVD Palpation: normal PMI Rate: regular rate Rhythm: regular rhythm Heart Sounds: S1 normal and S2 normal GI Inspection: normal to inspection Palpation: soft and no hepatosplenomegaly Extrem General: no clubbing, cyanosis or edema Objective Labs CBC & Chem 7: 01/04/22 06:26 01/04/22 08:06 Labs: Laboratory Results - last 24 hr 01/03/22 01/03/22 01/04/22 15:41 20:45 06:26 Corrected WBC 6.1 Uncorrected WBC Count 6.1 RBC 3.74 L Hgb 12.3 L Hct 36.2 L MCV 96.7 MCH 32.9 MCHC 34.0 RDW 13.2 Plt Count 214 MPV 10.6 H Neut % (Auto) 76.0 Lymph % (Auto) 8.6 Armstrong % (Auto) 12.6 Eos % (Auto) 2.3 Baso % (Auto) 0.5 Neut # (Auto) 4.6 Lymph # (Auto) 0.5 L Armstrong # (Auto) 0.8 Eos # (Auto) 0.1 Baso # (Auto) 0.0 Nucleated RBC % (auto) 0.0 PHA Creatinine Clear Sodium Potassium Chloride Carbon Dioxide Anion Gap BUN Creatinine Est GFR ( Amer) Est GFR (Non-Af Amer) Glucose POC Glucose 139 241 POC Glucose Comment Glu2: cleaned meter Calcium Total Bilirubin AST ALT Alkaline Phosphatase Total Protein Albumin Globulin Albumin/Globulin Ratio Vitamin B12 25-OH Vitamin D Total Folate TSH 3rd Generation 01/04/22 01/04/22 01/04/22 06:47 08:06 11:11 Corrected WBC Uncorrected WBC Count RBC Hgb Hct MCV MCH MCHC RDW Plt Count MPV Neut % (Auto) Lymph % (Auto) Armstrong % (Auto) Eos % (Auto) Baso % (Auto) Neut # (Auto) Lymph # (Auto) Armstrong # (Auto) Eos # (Auto) Baso # (Auto) Nucleated RBC % (auto) PHA Creatinine Clear 62.94 Sodium 131 L Potassium 3.8 Chloride 94 L Carbon Dioxide 28.6 Anion Gap 12.2 BUN 14 Creatinine 0.56 L Est GFR ( Amer) > 60 Est GFR (Non-Af Amer) > 60 Glucose 124 H POC Glucose 119 177 POC Glucose Comment Calcium 8.6 Total Bilirubin 0.9 AST 14 ALT 11 Alkaline Phosphatase 44 Total Protein 6.2 Albumin 3.0 L Globulin 3.2 Albumin/Globulin Ratio 0.9 Vitamin B12 89 L 25-OH Vitamin D Total 60.5 Folate 15.7 TSH 3rd Generation 2.07 01/04/22 16:18 Corrected WBC Uncorrected WBC Count RBC Hgb Hct MCV MCH MCHC RDW Plt Count MPV Neut % (Auto) Lymph % (Auto) Armstrong % (Auto) Eos % (Auto) Baso % (Auto) Neut # (Auto) Lymph # (Auto) Armstrong # (Auto) Eos # (Auto) Baso # (Auto) Nucleated RBC % (auto) PHA Creatinine Clear Sodium Potassium Chloride Carbon Dioxide Anion Gap BUN Creatinine Est GFR ( Amer) Est GFR (Non-Af Amer) Glucose POC Glucose 135 POC Glucose Comment Calcium Total Bilirubin AST ALT Alkaline Phosphatase Total Protein Albumin Globulin Albumin/Globulin Ratio Vitamin B12 25-OH Vitamin D Total Folate TSH 3rd Generation A&P - Cardiology (1) Atrial fibrillation with rapid ventricular response: Assessment/Problem Details: Patient is in and Out of atrial fibrillation but currently he is in sinus rhythmand on Eliquis. Code(s): I48.91 - Unspecified atrial fibrillation Status: Acute Plan: Continue Eliquis, add diltiazem 180 mg daily (2) Chest pain: Assessment/Problem Details: Atypical currently with no recurrences, nuclear stress test revealed small apical ischemia. As noted above in HPI after long discussion with the patient'swife the plan is to manage conservatively for the time being and consider invasive work-up when the patient is stronger as an outpatient. Continue aspirin/statin and beta-blockers Code(s): R07.9 - Chest pain, unspecified Status: Acute (3) Essential hypertension: Assessment/Problem Details: Remains slightly elevated Code(s): I10 - Essential (primary) hypertension Status: Acute Plan: Continue present medications Documented By: Demetra Iraheat MD, [facility] 2 1628 Signed By: <Electronically signed by MD BILL Demetra Iraheta> 01/04/22 1633 [facility] Work Phone: 1(261) 373-588808-30-2022 Progress note Author Mohsen Muniz [facility] January 04, 2022 11:51am Note Date/Time January 04, 2022 11 :51am [facility] [address] [place] [address] Hospitalist Progress Note Signed Patient: Esa Leavitt MR#: [id number] : 1935 Acct:[id number] Age/Sex: 86 / M Adm Date: 2 Loc: Room: [address] [place] [address] Type: ADM IN Attending Dr: Mohsen Muniz MD Copies to: ~ Date of Service: 01/04/2022 Subjective Subjective Narrative: Patient has been seen and examined today. He does note thickened sputum production, but has no issues with respirations at this time. Denies any fever/chill, chest pain, nausea/vomiting or other symptoms at this time. General -awake, alert, oriented ?3, not in acute distress Cardiovascular -S1 with S2 Pulmonary - clear to auscultation bilaterally Gastrointestinal - abdomen is soft, nondistended, nontender, bowel sounds positive, there is no rigidity, no rebound Extremities -no edema Neurological -no focal neurological dysfunction noted Exam Physical Exam Vital Signs: Temp Pulse Resp BP Pulse Ox O2 Del Method O2 Flow Rate 97.5 F L 67 18 154/79 H 95 Room Air 2 01/04/22 05:35 01/04/22 11:19 01/04/22 11:19 01/04/22 11:19 01/04/22 11:19 01/04/22 11:19 01/04/22 08:00 Objective Lab Results CBC & Chem 7: 01/04/22 06:26 01/04/22 08:06 Microbiology Results Microbiology 01/01/22 14:54 Blood - Right Forearm Blood Culture - Preliminary No Growth 2 Days 01/01/22 14:58 Blood - Left Hand Blood Culture - Preliminary No Growth 2 Days Meds Allergies and Active Meds Allergies No Known Allergies Allergy (Verified 04/05/21 18:11) Active Meds: Active Medications Generic Name Dose Route Start Last Admin Trade Name Freq PRN Reason Stop Dose Admin Acetaminophen 650 mg 01/03/22 10:05 01/03/22 16:41 Acetaminophen 325 Mg Tablet PO 01/03/23 10:04 650 mg Q6H PRN Administration Pain Apixaban 5 mg 01/01/22 09:00 01/04/22 08:37 Apixaban 5 Mg Tablet PO 01/01/23 08:59 5 mg BID [facility] Administration Aspirin 81 mg 01/01/22 09:00 01/04/22 08:37 Aspirin 81 Mg Tab.Chew PO 01/01/23 08:59 81 mg DAILY [facility] Administration Atorvastatin Calcium 20 mg 01/01/22 09:00 01/04/22 08:37 Atorvastatin 20 Mg Tablet PO 01/01/23 08:59 20 mg DAILY [facility] Administration Cyanocobalamin 1,000 mcg 01/05/22 09:00 Cyanocobalamin 1,000 Mcg Tablet PO 01/05/23 08:59 QAM [facility] Dextrose 0 gm 01/01/22 14:39 Dextrose 50% In Water 25 Gm/50 Ml Syringe IV-PUSH 01/01/23 14:38 PRN PRN Hypoglycemia Diltiazem HCl 180 mg 01/03/22 14:00 01/04/22 08:37 Diltiazem Cd.24hr 180 Mg Cap.Er.24h PO 01/03/23 13:59 180 mg DAILY [facility] Administration Glucose 0 gm 01/01/22 14:39 Dextrose 40% Gel 15 Gm Tube PO 01/01/23 14:38 PRN PRN Hypoglycemia Potassium Chloride 20 meq/ 260 mls @ 130 mls/hr 01/01/22 00:08 Sodium Chloride IV 01/01/23 00:07 DAILY PRN Hypokalemia Potassium Chloride 40 meq/ 520 mls @ 130 mls/hr 01/01/22 00:08 Sodium Chloride IV 01/01/23 00:07 DAILY PRN Hypokalemia Magnesium Sulfate 2 gm in 50 mls @ 25 mls/hr 01/01/22 00:08 Magnesium Sulf 2gm-*Swfi* IV 01/01/23 00:07 DAILY PRN Magnesium Level < 1.5 Insulin Aspart 0 units 01/01/22 17:00 01/04/22 11:19 Insulin Aspart 300 Units/3 Ml Insuln.Pen SUBCUT 01/01/23 16:59 Not Given TID.WM.HS [facility] Protocol Ketorolac Tromethamine 30 mg 01/03/22 17:44 01/04/22 05:32 Ketorolac Tromethamine 30 Mg/Ml Vial IV-PUSH 01/08/22 17:43 30 mg Q6H PRN Administration Severe Pain Labetalol HCl 5 mg 01/01/22 00:08 Labetalol 100 Mg/20 Ml Vial IV-PUSH 01/01/23 00:07 Q4H PRN Hypertension Metoprolol Succinate 50 mg 01/01/22 09:00 01/04/22 08:37 Metoprolol Succinate 50 Mg Tab.Er.24h PO 01/01/23 08:59 50 mg DAILY [facility] Administration Nitroglycerin 0.4 mg 01/01/22 00:08 Nitroglycerin 0.4 Mg Tab.Subl SUBLINGUAL 01/01/23 00:07 Q5M PRN Chest Pain Ondansetron HCl 4 mg 01/01/22 00:08 Ondansetron 4 Mg/2 Ml Vial IV-PUSH 01/01/23 00:07 Q8H PRN Nausea And Vomiting Pantoprazole Sodium 40 mg 01/04/22 09:00 01/04/22 08:37 Pantoprazole 40 Mg Vial IV-PUSH 01/04/23 08:59 40 mg DAILY [facility] Administration Sodium Chloride 0 ml 12/31/21 22:26 01/04/22 05:32 Sodium Chloride 0.9 % 10 Ml Syringe IV-PUSH 12/31/22 22:25 10 ml PRN PRN Administration Flush Sodium Chloride 0 ml 01/03/22 08:00 Sodium Chloride 0.9 % 10 Ml Syringe IV-PUSH 01/03/23 07:59 PRN PRN Flush Sodium Chloride 10 ml 01/03/22 17:45 Sodium Chloride 0.9 % 10 Ml Vial.Pf INJECTION 01/03/23 17:44 PRN PRN Dilution Sodium Chloride 10 ml 01/03/22 17:45 Sodium Chloride 0.9 % 10 Ml Syringe IV-PUSH 01/03/23 17:44 PRN PRN Flush A&P - Hospitalist Assessment/Plan (1) Chest pain: (2) Atrial fibrillation with rapid ventricular response: Plan Midsternal Chest Pain Abnormal stress test Atypical/non-cardiac. Patient underwent stress testing, and there was evidence of small reversible apical perfusion defect. Will defer to cardiology for further management. Report is not finalized at this time. MAURICE score is 3 ? Continue with telemetry - Cardiology following, cardiac meds per their recommendations Paroxysmal A. fib, new diagnosis ? Reportedly no history of A. fib ? Currently rate controlled ? Cont patient on Eliquis given his elevated [id number] score Generalized deconditioning PT/OT assessment recommends SNF versus acute inpatient rehab. Patient reported lives at home alone -Case management to assist in placement -Replete B12 Leukocytosis, fevers resolved, I do not appreciate any focal signs of infection,blood cultures so far pending Urinalysis no signs of infection, chest x-ray clear without infiltrate *Chronic Medical Issues 1. Hypertension 2. Diabetes 3. Hyperlipidemia ? Continue his home medications Documented By: Mohsen Muniz MD 2 1145 Signed By: <Electronically signed by Mohsen Muniz MD> 01/04/22 1151 [facility] Work Phone: [phone] Progress note Author Mohsen Muniz [facility] January 03, 2022 7:41pm Note Date/Time January 03, 2022 7: 16pm [facility] [address] [place] [address] Hospitalist Progress Note Signed Patient: Esa Leavitt MR#: [id number] : 1935 Acct:[id number] Age/Sex: 86 / M Adm Date: 2 Loc: Room: [address] [place] [address] Type: ADM IN Attending Dr: Mohsen Muniz MD Copies to: ~ Date of Service: 01/03/2022 Subjective Subjective Narrative: Patient has been seen and examined today. Patient continues to not report any chest pain. He does note generalized weakness, and was seen and assessed after physical and Occupational Therapy today. General -awake, alert, oriented ?3, not in acute distress Cardiovascular -S1 with S2 Pulmonary - clear to auscultation bilaterally Gastrointestinal - abdomen is soft, nondistended, nontender, bowel sounds positive, there is no rigidity, no rebound Extremities -no edema Neurological -no focal neurological dysfunction noted Exam Physical Exam Vital Signs: Temp Pulse Resp BP Pulse Ox O2 Del Method O2 Flow Rate 97.8 F 67 18 156/65 H 96 Room Air 2 01/03/22 08:06 01/03/22 16:00 01/03/22 16:00 01/03/22 16:00 01/03/22 16:00 01/03/22 16:00 01/02/22 23:46 Objective Lab Results CBC & Chem 7: 01/02/22 06:44 01/02/22 06:44 Microbiology Results Microbiology 01/01/22 14:54 Blood - Right Forearm Blood Culture - Preliminary No Growth 2 Days 01/01/22 14:58 Blood - Left Hand Blood Culture - Preliminary No Growth 2 Days Meds Allergies and Active Meds Allergies No Known Allergies Allergy (Verified 04/05/21 18:11) Active Meds: Active Medications Generic Name Dose Route Start Last Admin Trade Name Hadleyq PRN Reason Stop Dose Admin Acetaminophen 650 mg 01/03/22 10:05 01/03/22 16:41 Acetaminophen 325 Mg Tablet PO 01/03/23 10:04 650 mg Q6H PRN Administration Pain Apixaban 5 mg 01/01/22 09:00 01/03/22 08:19 Apixaban 5 Mg Tablet PO 01/01/23 08:59 5 mg BID [facility] Administration Aspirin 81 mg 01/01/22 09:00 01/03/22 08:18 Aspirin 81 Mg Tab.Chew PO 01/01/23 08:59 81 mg DAILY [facility] Administration Atorvastatin Calcium 20 mg 01/01/22 09:00 01/03/22 08:18 Atorvastatin 20 Mg Tablet PO 01/01/23 08:59 20 mg DAILY [facility] Administration Dextrose 0 gm 01/01/22 14:39 Dextrose 50% In Water 25 Gm/50 Ml Syringe IV-PUSH 01/01/23 14:38 PRN PRN Hypoglycemia Diltiazem HCl 180 mg 01/03/22 14:00 01/03/22 13:25 Diltiazem Cd.24hr 180 Mg Cap.Er.24h PO 01/03/23 13:59 180 mg DAILY [facility] Administration Glucose 0 gm 01/01/22 14:39 Dextrose 40% Gel 15 Gm Tube PO 01/01/23 14:38 PRN PRN Hypoglycemia Potassium Chloride 20 meq/ 260 mls @ 130 mls/hr 01/01/22 00:08 Sodium Chloride IV 01/01/23 00:07 DAILY PRN Hypokalemia Potassium Chloride 40 meq/ 520 mls @ 130 mls/hr 01/01/22 00:08 Sodium Chloride IV 01/01/23 00:07 DAILY PRN Hypokalemia Magnesium Sulfate 2 gm in 50 mls @ 25 mls/hr 01/01/22 00:08 Magnesium Sulf 2gm-*Swfi* IV 01/01/23 00:07 DAILY PRN Magnesium Level < 1.5 Insulin Aspart 0 units 01/01/22 17:00 01/03/22 16:41 Insulin Aspart 300 Units/3 Ml Insuln.Pen SUBCUT 01/01/23 16:59 Not Given TID.WM.HS [facility] Protocol Ketorolac Tromethamine 30 mg 01/03/22 17:44 Ketorolac Tromethamine 30 Mg/Ml Vial IV-PUSH 01/08/22 17:43 Q6H PRN Severe Pain Labetalol HCl 5 mg 01/01/22 00:08 Labetalol 100 Mg/20 Ml Vial IV-PUSH 01/01/23 00:07 Q4H PRN Hypertension Metoprolol Succinate 50 mg 01/01/22 09:00 01/03/22 08:18 Metoprolol Succinate 50 Mg Tab.Er.24h PO 01/01/23 08:59 50 mg DAILY [facility] Administration Nitroglycerin 0.4 mg 01/01/22 00:08 Nitroglycerin 0.4 Mg Tab.Subl SUBLINGUAL 01/01/23 00:07 Q5M PRN Chest Pain Ondansetron HCl 4 mg 01/01/22 00:08 Ondansetron 4 Mg/2 Ml Vial IV-PUSH 01/01/23 00:07 Q8H PRN Nausea And Vomiting Pantoprazole Sodium 40 mg 01/04/22 09:00 Pantoprazole 40 Mg Vial IV-PUSH 01/04/23 08:59 DAILY [facility] Sodium Chloride 0 ml 12/31/21 22:26 01/03/22 12:15 Sodium Chloride 0.9 % 10 Ml Syringe IV-PUSH 12/31/22 22:25 30 ml PRN PRN Administration Flush Sodium Chloride 0 ml 01/03/22 08:00 Sodium Chloride 0.9 % 10 Ml Syringe IV-PUSH 01/03/23 07:59 PRN PRN Flush Sodium Chloride 10 ml 01/03/22 17:45 Sodium Chloride 0.9 % 10 Ml Vial.Pf INJECTION 01/03/23 17:44 PRN PRN Dilution Sodium Chloride 10 ml 01/03/22 17:45 Sodium Chloride 0.9 % 10 Ml Syringe IV-PUSH 01/03/23 17:44 PRN PRN Flush A&P - Hospitalist Assessment/Plan (1) Chest pain: (2) Atrial fibrillation with rapid ventricular response: Plan Midsternal Chest Pain Atypical/non-cardiac. Patient underwent stress testing today. MAURICE score is 3 ? EKG is not concerning and is showing A. fib ? First troponin was negative, troponins remained flat ? Continue with telemetry - Cardiology following, cardiac meds per their recommendations Paroxysmal A. fib, new diagnosis ? Reportedly no history of A. fib ? Currently rate controlled ? Cont patient on Eliquis given his elevated [id number] score Generalized deconditioning PT/OT assessment recommends SNF versus acute inpatient rehab. Patient reported lives at home alone -Case management to assist in placement Leukocytosis, fevers resolved, I do not appreciate any focal signs of infection,blood cultures so far pending Urinalysis no signs of infection, chest x-ray clear without infiltrate *Chronic Medical Issues 1. Hypertension 2. Diabetes 3. Hyperlipidemia ? Continue his home medications Documented By: Mohsen Muniz MD 1913 Signed By: <Electronically signed by Mohsen Muniz MD> 01/03/221940 [facility] Work Phone: [phone]) [phone] Progress note Author Demetra Iraheta [facility] January 03, 2022 12:51pm Note Date/Time January 03, 2022 12 :46pm [facility] [address] [place] [address] Cardiology Progress Note Signed Patient: Esa Leavitt MR#: [id number] : 1935 Acct:[id number] Age/Sex: 86 / M Adm Date: 2 Loc: 3T Room: [address] [place] [address] Type: ADM IN Attending Dr: Mohsen Muniz MD Copies to: ~ Date of Service: 01/03/2022 Subjective Principal diagnosis: Chest pain Interval history: Patient is chest pain-free, the monitor reveals that he is in sinus rhythm today. The patient had Lexiscan perfusion study results available later today if the computer is , echocardiogram revealed normal ejection fraction. The patient can still be discharged home today on oral anticoagulation and we will address the results of the stress test when they become available and will arrange for follow-up in the office. No antiarrhythmic therapy is to start yet Exam Physical Exam Vital Signs: Temp Pulse Resp BP Pulse Ox O2 Del Method O2 Flow Rate 97.8 F 72 18 148/72 H 94 L Room Air 2 01/03/22 08:06 01/03/22 08:06 01/03/22 08:06 01/03/22 08:06 01/03/22 08:06 01/03/22 08:12 01/02/22 23:46 Const General: cooperative, healthy appearing, comfortable and no acute distress Nutritional Appearance: average body habitus Orientation: alert, awake and oriented x3 HEENT Head: normal to inspection, normocephalic and atraumatic Ears: hearing grossly normal bilaterally Nose: external nose normal Face and sinus: normal facial exam Eyes Conjunctivae: conjunctivae normal Pupils: PERRL Neck Neck: normal visual inspection, full ROM, no lymphadenopathy, trachea midline and supple Neck mass: No Thyroid: thyroid normal Carotids: normal carotid upstroke Resp Effort & Inspection: normal respiratory effort Auscultation: clear to auscultation bilaterally Cardio Jugular venous pressure: no JVD Palpation: normal PMI Rate: regular rate Rhythm: regular rhythm Heart Sounds: S1 normal and S2 normal GI Inspection: normal to inspection Palpation: soft and no hepatosplenomegaly Extrem General: no clubbing, cyanosis or edema Objective Labs CBC & Chem 7: 01/02/22 06:44 01/02/22 06:44 Labs: Laboratory Results - last 24 hr 01/02/22 01/02/22 01/03/22 16:11 21:22 06:20 POC Glucose 142 134 162 POC Glucose Comment Glu2: cleaned meter 01/03/22 11:01 POC Glucose 113 POC Glucose Comment A&P - Cardiology (1) Atrial fibrillation with rapid ventricular response: Assessment/Problem Details: Patient is in and Out of atrial fibrillation but currently he is in sinus rhythmand on Eliquis. Code(s): I48.91 - Unspecified atrial fibrillation Status: Acute Plan: Continue Eliquis, add diltiazem CD1 80 mg daily (2) Chest pain: Assessment/Problem Details: Atypical currently with no recurrences, nuclear stress test was done today, the result will be available later. Code(s): R07.9 - Chest pain, unspecified Status: Acute Documented By: Demetra Iraheta MD, [facility] 2 1245 Signed By: <Electronically signed by [facility] Demetra Iraheta> 01/03/22 1251 [facility] Work Phone: 1(141) 850-337808-28-2022 Progress note Author Ronit Caruso [facility] January 02, 2022 6:16pm Note Date/Time January 02, 2022 6: 16pm [facility] [address] [place] [address] Hospitalist Progress Note Signed Patient: Esa Leavitt MR#: [id number] : 1935 Acct:[id number] Age/Sex: 86 / M Adm Date: 2 Loc: Room: [address] [place] [address] Type: ADM IN Attending Dr: Ronit Caruso MD Copies to: ~ Date of Service: 01/02/2022 Subjective Subjective Narrative: Patient has been seen and examined today. He is doing quite well, does not report any chest pain No more fevers, denies any shortness of breath any cough. Denies any abdominal pain any diarrhea. Denies any dysuria General -awake, alert, oriented ?3, not in acute distress Cardiovascular -S1 with S2 Pulmonary - clear to auscultation bilaterally Gastrointestinal - abdomen is soft, nondistended, nontender, bowel sounds positive, there is no rigidity, no rebound Extremities -no edema Neurological -no focal neurological dysfunction noted Exam Physical Exam Vital Signs: Temp Pulse Resp BP Pulse Ox O2 Del Method O2 Flow Rate 36.8 C 83 19 170/80 H 96 Room Air 2 01/02/22 16:00 01/02/22 16:00 01/02/22 16:00 01/02/22 16:00 01/02/22 16:00 01/02/22 16:42 01/01/22 08:46 Objective Lab Results CBC & Chem 7: 01/02/22 06:44 01/02/22 06:44 Microbiology Results Microbiology 01/01/22 14:54 Blood - Right Forearm Blood Culture - Preliminary No Growth 1 Day 01/01/22 14:58 Blood - Left Hand Blood Culture - Preliminary No Growth 1 Day Meds Allergies and Active Meds Allergies No Known Allergies Allergy (Verified 04/05/21 18:11) Active Meds: Active Medications Generic Name Dose Route Start Last Admin Trade Name Slava PRN Reason Stop Dose Admin Apixaban 5 mg 01/01/22 09:00 01/02/22 08:50 Apixaban 5 Mg Tablet PO 01/01/23 08:59 5 mg BID MASOOD Administration Aspirin 81 mg 01/01/22 09:00 01/02/22 08:50 Aspirin 81 Mg Tab.Chew PO 01/01/23 08:59 81 mg DAILY MASOOD Administration Atorvastatin Calcium 20 mg 01/01/22 09:00 01/02/22 08:50 Atorvastatin 20 Mg Tablet PO 01/01/23 08:59 20 mg DAILY MASOOD Administration Dextrose 0 gm 01/01/22 14:39 Dextrose 50% In Water 25 Gm/50 Ml Syringe IV-PUSH 01/01/23 14:38 PRN PRN Hypoglycemia Glucose 0 gm 01/01/22 14:39 Dextrose 40% Gel 15 Gm Tube PO 01/01/23 14:38 PRN PRN Hypoglycemia Potassium Chloride 20 meq/ 260 mls @ 130 mls/hr 01/01/22 00:08 Sodium Chloride IV 01/01/23 00:07 DAILY PRN Hypokalemia Potassium Chloride 40 meq/ 520 mls @ 130 mls/hr 01/01/22 00:08 Sodium Chloride IV 01/01/23 00:07 DAILY PRN Hypokalemia Magnesium Sulfate 2 gm in 50 mls @ 25 mls/hr 01/01/22 00:08 Magnesium Sulf 2gm-*Swfi* IV 01/01/23 00:07 DAILY PRN Magnesium Level < 1.5 Insulin Aspart 0 units 01/01/22 17:00 01/02/22 17:12 Insulin Aspart 300 Units/3 Ml Insuln.Pen SUBCUT 01/01/23 16:59 Not Given TID.WM.HS MASOOD Protocol Labetalol HCl 5 mg 01/01/22 00:08 Labetalol 100 Mg/20 Ml Vial IV-PUSH 01/01/23 00:07 Q4H PRN Hypertension Metoprolol Succinate 50 mg 01/01/22 09:00 01/02/22 08:50 Metoprolol Succinate 50 Mg Tab.Er.24h PO 01/01/23 08:59 50 mg DAILY MASOOD Administration Nitroglycerin 0.4 mg 01/01/22 00:08 Nitroglycerin 0.4 Mg Tab.Subl SUBLINGUAL 01/01/23 00:07 Q5M PRN Chest Pain Ondansetron HCl 4 mg 01/01/22 00:08 Ondansetron 4 Mg/2 Ml Vial IV-PUSH 01/01/23 00:07 Q8H PRN Nausea And Vomiting Regadenoson 0.4 mg 01/03/22 08:00 Regadenoson 0.4 Mg/5 Ml Syringe IV-PUSH 01/03/22 08:01 ONCE ONE Sodium Chloride 0 ml 12/31/21 22:26 01/01/22 17:51 Sodium Chloride 0.9 % 10 Ml Syringe IV-PUSH 12/31/22 22:25 10 ml PRN PRN Administration Flush Sodium Chloride 0 ml 01/03/22 08:00 Sodium Chloride 0.9 % 10 Ml Syringe IV-PUSH 01/03/23 07:59 PRN PRN Flush A&P - Hospitalist Assessment/Plan (1) Chest pain: (2) Atrial fibrillation with rapid ventricular response: Plan 1.Midsternal chest pain ? Atypical/noncardiac ? MAURICE score is 3 ? EKG is not concerning and is showing A. fib ? First troponin was negative, troponins remained flat ? Continue with telemetry ? Continue his aspirin/simvastatin ? Start patient on Toprol-XL 50 mg p.o. daily and hold his bisoprolol ? Cardiology consulted, plan for stress test in a.m. 2.Paroxysmal A. fib ? Reportedly no history of A. fib ? Currently rate controlled ? Start patient on Eliquis given his elevated [id number] score ? Echo is pending ? Check TSH and free T4 3.Leukocytosis, fevers resolved, I do not appreciate any focal signs of infection, blood cultures so far pending Urinalysis no signs of infection, chest x-ray clear without infiltrate *Chronic medical issues 1. Hypertension 2. Diabetes 3. Hyperlipidemia ? Continue his home medications Documented By: Ronit Caruso MD 01/02/221813 Signed By: <Electronically signed by Ronit Caruso MD> 01/02/221815 [facility] Work Phone: 1([phone] 116-867408-28-2022 Progress note Author Demetra Iraheta [facility] January 02, 2022 1:39pm Note Date/Time January 02, 2022 1: 35pm [facility] [address] [place] [address] Cardiology Progress Note Signed Patient: Esa Leavitt MR#: [id number] : 1935 Acct:[id number] Age/Sex: 86 / M Adm Date: 2 Loc: Room: [address] [place] [address] Type: ADM IN Attending Dr: Ronit Caruso MD Copies to: ~ Date of Service: 01/02/2022 Subjective Principal diagnosis: Chest pain Interval history: Patient is chest pain-free, the monitor reveals that he is back in sinus rhythm,EKG will be ordered for confirmation. The patient is scheduled for Lexiscan perfusion study tomorrow, echocardiogram revealed normal ejection fraction Exam Physical Exam Vital Signs: Temp Pulse Resp BP Pulse Ox O2 Del Method O2 Flow Rate 98 F 87 19 158/79 H 92 L Room Air 2 01/02/22 08:00 01/02/22 08:00 01/02/22 08:00 01/02/22 08:00 01/02/22 08:00 01/02/22 08:00 01/01/22 08:46 Const General: cooperative, healthy appearing, comfortable and no acute distress Nutritional Appearance: average body habitus Orientation: alert, awake and oriented x3 HEENT Head: normal to inspection, normocephalic and atraumatic Ears: hearing grossly normal bilaterally Nose: external nose normal Face and sinus: normal facial exam Eyes Conjunctivae: conjunctivae normal Pupils: PERRL Neck Neck: normal visual inspection, full ROM, no lymphadenopathy, trachea midline and supple Neck mass: No Thyroid: thyroid normal Carotids: normal carotid upstroke Resp Effort & Inspection: normal respiratory effort Auscultation: clear to auscultation bilaterally Cardio Jugular venous pressure: no JVD Palpation: normal PMI Rate: regular rate Rhythm: regular rhythm Heart Sounds: S1 normal and S2 normal GI Inspection: normal to inspection Palpation: soft and no hepatosplenomegaly Extrem General: no clubbing, cyanosis or edema Objective Labs CBC & Chem 7: 01/02/22 06:44 01/02/22 06:44 Labs: Laboratory Results - last 24 hr 01/01/22 01/01/22 01/01/22 14:48 16:05 20:51 Corrected WBC Uncorrected WBC Count RBC Hgb Hct MCV MCH MCHC RDW Plt Count MPV Neut % (Auto) Lymph % (Auto) Armstrong % (Auto) Eos % (Auto) Baso % (Auto) Neut # (Auto) Lymph # (Auto) Armstrong # (Auto) Eos # (Auto) Baso # (Auto) Nucleated RBC % (auto) PHA Creatinine Clear Sodium Potassium Chloride Carbon Dioxide BUN Creatinine Est GFR ( Amer) Est GFR (Non-Af Amer) Glucose POC Glucose 130 159 POC Glucose Comment Calcium Urine Color Chambers A Urine Appearance Clear Urine pH 5.5 Ur Specific Sandy 1.020 Urine Protein Negative Urine Glucose (UA) Normal Urine Ketones Negative Urine Occult Blood Negative Urine Nitrite Negative Urine Bilirubin Negative Urine Urobilinogen Normal Ur Leukocyte Esterase Negative Urine RBC 0-1 Urine WBC None seen Ur Squamous Epith Cells 1-2 Urine Bacteria None seen Hyaline Casts 0-8 01/02/22 01/02/22 01/02/22 06:31 06:44 06:44 Corrected WBC 9.4 Uncorrected WBC Count 9.4 RBC 3.77 L Hgb 12.4 L Hct 36.6 L MCV 97.0 MCH 32.8 MCHC 33.8 RDW 13.6 Plt Count 200 MPV 9.9 Neut % (Auto) 79.0 Lymph % (Auto) 9.0 Armstrong % (Auto) 11.1 Eos % (Auto) 0.3 Baso % (Auto) 0.6 Neut # (Auto) 7.4 Lymph # (Auto) 0.8 L Armstrong # (Auto) 1.0 H Eos # (Auto) 0.0 Baso # (Auto) 0.1 Nucleated RBC % (auto) 0.0 PHA Creatinine Clear 62.94 Sodium 130 L Potassium 3.9 Chloride 93 L Carbon Dioxide 28.8 BUN 18 Creatinine 0.61 L Est GFR ( Amer) > 60 Est GFR (Non-Af Amer) > 60 Glucose 124 H POC Glucose 129 POC Glucose Comment Calcium 8.7 Urine Color Urine Appearance Urine pH Ur Specific Sandy Urine Protein Urine Glucose (UA) Urine Ketones Urine Occult Blood Urine Nitrite Urine Bilirubin Urine Urobilinogen Ur Leukocyte Esterase Urine RBC Urine WBC Ur Squamous Epith Cells Urine Bacteria Hyaline Casts 01/02/22 11:42 Corrected WBC Uncorrected WBC Count RBC Hgb Hct MCV MCH MCHC RDW Plt Count MPV Neut % (Auto) Lymph % (Auto) Armstrong % (Auto) Eos % (Auto) Baso % (Auto) Neut # (Auto) Lymph # (Auto) Armstrong # (Auto) Eos # (Auto) Baso # (Auto) Nucleated RBC % (auto) PHA Creatinine Clear Sodium Potassium Chloride Carbon Dioxide BUN Creatinine Est GFR ( Amer) Est GFR (Non-Af Amer) Glucose POC Glucose 144 POC Glucose Comment Glu2: cleaned meter Calcium Urine Color Urine Appearance Urine pH Ur Specific Sandy Urine Protein Urine Glucose (UA) Urine Ketones Urine Occult Blood Urine Nitrite Urine Bilirubin Urine Urobilinogen Ur Leukocyte Esterase Urine RBC Urine WBC Ur Squamous Epith Cells Urine Bacteria Hyaline Casts A&P - Cardiology (1) Atrial fibrillation with rapid ventricular response: Assessment/Problem Details: First episode with relatively controlled rates. Currently appears to be in sinus rhythm Code(s): I48.91 - Unspecified atrial fibrillation Status: Acute Plan: 1. Maintain metoprolol succinate 50 mg daily 2. Maintain oral anticoagulation with DOAC 3. Repeat twelve-lead EKG for confirmation (2) Chest pain: Assessment/Problem Details: Atypical and appears clinically related to episode of paroxysmal atrial fibrillation. Serial negative EKGs and troponins place patient in a low risk category for potential acute coronary syndrome. Code(s): R07.9 - Chest pain, unspecified Status: Acute Plan: Lexiscan Cardiolite stress test tomorrow Documented By: Demetra Iraheta MD, [facility] 2 1332 Signed By: <Electronically signed by MD AIDA Iraheta> 01/02/22 4129 [facility] Work Phone: [phone] Consult note Author Anderson Ambrosio [facility] January 01, 2022 4:03pm Note Date/Time January 01, 2022 4: 02pm [facility] [address] [place] [address] Cardiology Consult Note Signed Patient: Esa Leavitt MR#: [id number] : 1935 Acct:[id number] Age/Sex: 86 / M Adm Date: 2 Loc: Room: [address] [place] [address] Type: ADM IN Attending Dr: Ronit Caruso MD Copies to: MD Ronit Boss II, MD Stephen M Tann, MD~ Cardiology HPI History of Present Illness Consult Date: 01/01/22 Reason for Consult: Chest pain HPI: Mr. Leavitt is a 86 year old male with no known prior cardiac history who was in his normal state of health until yesterday evening when while eating dinner he noticed a relatively abrupt onset of a sharp substernal chest pain. Patient denies any antecedent symptoms or antecedent chest pain over the preceding few days. He states while he was home eating dinner with his family he noted a relative abrupt onset of a sharp knifelike chest discomfort in the center of hischest. There was no radiation of the pain. There was no associated dyspnea nausea vomiting or diaphoresis. The pain was relatively constant for several hours he denies a subjective sensation of palpitations or racing heart. He denies any lightheadedness dizziness presyncope or syncope. With persistence of the chest discomfort for several hours EMS was activated andthe patient was brought to the emergency department at [facility]. He was found by first EKG to be in atrial fibrillation with ventricular response in the 95 to 100 bpm range. The patient was admitted to the inpatient hospitalist service. He was started on rate control with oral beta-may, and he was also started on oral anticoagulation with DOAC. EKGs have been negative for any type of ischemic change and serial troponins have been negative with a flat curve. Earlier today the patient converted to normal sinus rhythm after his first dose of oral beta-may. He currently denies any chest pain palpitations or other cardiac symptoms. He is hemodynamically stable with stable vital signs. I am now consulted for further cardiac evaluation and management. Of note his familyis at his bedside including his and 2 daughters. They are very concerned about further evaluation of the patient's current clinical syndrome given the fact that both daughters are no longer going to be with the patient starting tomorrow and the fact that he has very limited mobility and access to transportation. [facility] Vaccinated for COVID-19?: Unknown Medical History Diabetes mellitus Hyperlipidemia Hypertension Social History Smoking Status: Former smoker Tobacco Type: cigarettes Substance Use Type: Alcohol Substance Abuse Comment: 2-3 'S DAY Meds Medications and Allergies Allergies No Known Allergies Allergy (Verified 04/05/21 18:11) Home Medications bisoprolol 5 mg-hydrochlorothiazide 6.25 mg tablet 1 tab PO DAILY 04/05/21 [History Confirmed 01/01/22] metformin 750 mg tablet,extended release 24 hr 750 mg PO DAILY 04/05/21 [History Confirmed 01/01/22] simvastatin 40 mg tablet 40 mg PO DAILY 04/05/21 [History Confirmed 01/01/22] aspirin 81 mg tablet 81 mg PO DAILY 01/01/22 [History Confirmed 01/01/22] ferrous sulfate 325 mg (65 mg iron) tablet 325 mg PO DAILY 01/01/22 [History Confirmed 01/01/22] furosemide 20 mg tablet 20 mg PO DAILY 01/01/22 [History Confirmed 01/01/22] Exam Physical Exam Vital Signs: Temp Pulse Resp BP Pulse Ox O2 Del Method O2 Flow Rate 98.6 F 71 18 105/56 L 95 Nasal Cannula 2 01/01/22 08:00 01/01/22 08:00 01/01/22 08:00 01/01/22 08:00 01/01/22 08:00 01/01/22 08:46 01/01/22 08:46 Const General: cooperative, comfortable, no acute distress and frail appearing Nutritional Appearance: thin Orientation: alert, awake and oriented x3 HEENT Head: normocephalic and atraumatic Face and sinus: face symmetric Mouth: moist mucous membranes Teeth and gingiva: poor dentition Eyes Conjunctivae: conjunctivae normal Sclera: sclerae normal Pupils: PERRL and accommodation normal EOM: EOM intact bilaterally Neck Neck: no lymphadenopathy and supple Neck mass: No Thyroid: thyroid normal Carotids: normal carotid upstroke Lymphatic: no lymphadenopathy noted Chest Chest palpation & inspection: normal inspection of the chest Resp Effort & Inspection: normal respiratory effort, able to speak in complete sentences and symmetric chest movement Auscultation: clear to auscultation bilaterally Cardio Jugular venous pressure: no JVD Palpation: normal PMI Rate: regular rate Rhythm: regular rhythm Heart Sounds: S1 normal, S2 normal, gallop S4 gallop and murmur systolic I/ and at the left sternal border Pulses: radial pulses present, posterior tibial pulses present and dorsalis pedis present GI Inspection: normal to inspection Palpation: soft and no hepatosplenomegaly Percussion: normal to percussion Auscultation: normal bowel sounds Skin General: no rashes or lesions noted Trauma: no lacerations or abrasions Wounds: no wounds Neuro General: patient alert, patient awake, patient oriented x3, moves all extremities and no focal motor deficits Cranial Nerves: CN's II-XII intact bilaterally Cognition: normal cognition Speech: speech normal Motor: muscle tone normal throughout Sensory Exam: no sensory deficits noted Extrem General: no clubbing, cyanosis or edema Psych Appearance: grossly normal Mood: congruent mood Affect: normal affect Speech and Movement: speech and movement normal Attitude: cooperative Thought Process: normal Thought Content: normal Insight: insight good Judgment: judgment good MAURICE Risk Score MAURICE Risk Score Predictor Historical: Age > 65 Years Old and 3 or more Risk Factors: FHx,HTN,elevated cholesterol,DM,active smoker Presentation: Recent (>/=24hr) Angina Score Risk Score (0-7): 3 Results Labs CBC & CMP: 01/01/22 06:48 01/01/22 06:48 Lab results: Cardiac Enzymes 12/31/21 12/31/21 01/01/22 Range/Units 22:45 22:45 06:48 AST 18 (10-42) U/L Total Creatine Kinase 74 (22-269) U/L CK-MB (CK-2) 3.5 (0.6-6.3) ng/mL CK-MB (CK-2) Rel Index 4.7 H (0.00-2.50) % B-Natriuretic Peptide 157.0 H (5-100) pg/mL CBC 12/31/21 01/01/22 Range/Units 22:45 06:48 RBC 3.96 3.86 L (3.90-5.60) x10E6/uL Hgb 12.7 L 12.5 L (13.0-17.0) g/dL Hct 38.5 L 37.4 L (38.8-50.0) % Plt Count 254 228 (150-450) x10E3/uL Neut # (Auto) 12.3 H 13.8 H (1.8-7.7) x10E3/uL Lymph # (Auto) 0.6 L 0.6 L (1.00-4.8) x10E3/uL Armstrong # (Auto) 0.9 H 1.5 H (0.0-0.8) x10E3/uL Eos # (Auto) 0.0 0.0 (0.0-0.45) x10E3/uL Baso # (Auto) 0.0 0.0 (0.0-0.2) x10E3/uL Comprehensive Metabolic Panel 12/31/21 01/01/22 Range/Units 22:45 06:48 Sodium 133 L 131 L (136-146) mmol/L Potassium 3.5 3.8 (3.5-5.1) mmol/L Chloride 92 L 91 L (95-114) mmol/L Carbon Dioxide 23.3 30.0 (22.0-30.0) mmol/L BUN 15 19 (9-23) mg/dL Creatinine 0.59 L 0.70 (0.64-1.27) mg/dL Glucose 194 H 170 H (70-100) mg/dL Calcium 9.0 8.9 (8.2-10.2) mg/dL AST 18 (10-42) U/L ALT 13 (10-60) U/L Alkaline Phosphatase 45 (32-92) U/L Total Protein 6.3 (6.1-7.9) gm/dL Albumin 3.4 (3.2-5.5) gm/dL Intake and Output 12/31/21 01/01/22 01/01/22 23:59 07:59 15:59 Intake Total 300 / 600 300 / 600 Output Total 0 / 400 400 / 400 Balance 300 / 200 -100 / 200 Intake: Oral 300 / 600 300 / 600 Output: Urine 0 / 400 400 / 400 Other: # Voids 0 Weight 70.76 kg 71.1 kg Date of Last Bowel Movement 12/30/21 12/30/21 Patient Weight 01/01/22 23:59 Weight 71.1 kg Lab 12/31/21 22:45 PT 12.6 INR 1.1 APTT 29.3 EKG Interpretations EKG Attestation EKG: I reviewed this ECG and interpreted as documented below: EKG shows: atrial fibrillation Blocks, axis, hypertrophy, ST abn Repolarization changes or abnormalities: nonspecific abnormality, ST segment, and/or T wave A&P - Cardiology (1) Atrial fibrillation with rapid ventricular response: Assessment/Problem Details: First episode with relatively controlled rates. Elevated CV2 score. Now converted back to normal sinus mechanism after first dose of oral beta-blockade Plan: 1. Maintain metoprolol succinate 50 mg daily 2. Maintain oral anticoagulation with DOAC Code(s): I48.91 - Unspecified atrial fibrillation (2) Chest pain: Assessment/Problem Details: Atypical and appears clinically related to episode of paroxysmal atrial fibrillation. Serial negative EKGs and troponins place patient in a low risk category for potential acute coronary syndrome. That said the patient's family is very concerned about this episode and wishes to seek further risk stratification Plan: We will plan to keep the patient in hospital over the weekend. Plan to make thepatient n.p.o. after midnight tomorrow night with plans for Lexiscan nuclear myocardial perfusion imaging Monday Code(s): R07.9 - Chest pain, unspecified Plan Thank you very much for this kind consultation and for allowing me to participate in care of this very pleasant patient and his family. Documented By: Anderson Ambrosio MD 01/01/22 155 Signed By: <Electronically signed by Anderson Ambrosio MD> 01/01/22 160 [facility] Work Phone: 1(833) 333-651208-27-2022 Progress note Author Ronit Caruso [facility] January 01, 2022 2:37pm Note Date/Time January 01, 2022 2: 37pm [facility] [address] [place] [address] Hospitalist Progress Note Signed Patient: Esa Leavitt MR#: [id number] : 1935 Acct:[id number] Age/Sex: 86 / M Adm Date: 2 Loc: 3T Room: [address] [place] [address] Type: ADM IN Attending Dr: Ronit Caruso MD Copies to: ~ Date of Service: 01/01/2022 Subjective Subjective Narrative: Patient was admitted after midnight. The patient has been seen and examined. I personally obtained the bob and critical portions of the history and physical exam. I reviewed the chart, the team's documentation, and discussed the patientcare with the team. I agree with the team's medical decision making and have edited the note to reflect my clinical findings and my assessment and plan. Exam Physical Exam Vital Signs: Temp Pulse Resp BP Pulse Ox O2 Del Method O2 Flow Rate 37.0 C 71 18 105/56 L 95 Nasal Cannula 2 01/01/22 08:00 01/01/22 08:00 01/01/22 08:00 01/01/22 08:00 01/01/22 08:00 01/01/22 08:46 01/01/22 08:46 Objective Lab Results CBC & Chem 7: 01/01/22 06:48 01/01/22 06:48 Microbiology Results Microbiology 12/31/21 23:52 Nasal SARS Antigen (LFIA) - Final Meds Allergies and Active Meds Allergies No Known Allergies Allergy (Verified 04/05/21 18:11) Active Meds: Active Medications Generic Name Dose Route Start Last Admin Trade Name Slava PRN Reason Stop Dose Admin Apixaban 5 mg 01/01/22 09:00 01/01/22 09:00 Apixaban 5 Mg Tablet PO 01/01/23 08:59 5 mg BID MASOOD Administration Aspirin 81 mg 01/01/22 09:00 01/01/22 09:00 Aspirin 81 Mg Tab.Chew PO 01/01/23 08:59 81 mg DAILY MASOOD Administration Atorvastatin Calcium 20 mg 01/01/22 09:00 01/01/22 08:59 Atorvastatin 20 Mg Tablet PO 01/01/23 08:59 20 mg DAILY MASOOD Administration Ferrous Sulfate 324 mg 01/01/22 09:00 01/01/22 09:00 Ferrous Sulfate 324 Mg Tablet.Dr PO 01/01/23 08:59 324 mg DAILY MASOOD Administration Furosemide 20 mg 01/01/22 09:00 01/01/22 09:00 Furosemide 20 Mg Tablet PO 01/01/23 08:59 20 mg DAILY MASOOD Administration Diltiazem HCl 100 mg in 100 mls @ 10 mls/hr 12/31/21 23:45 12/31/21 23:59 Cardizem IV 12/31/22 23:44 10 mg/hr .Q10H MASOOD 10 mls/hr Administration 10 MG/HR Potassium Chloride 20 meq/ 260 mls @ 130 mls/hr 01/01/22 00:08 Sodium Chloride IV 01/01/23 00:07 DAILY PRN Hypokalemia Potassium Chloride 40 meq/ 520 mls @ 130 mls/hr 01/01/22 00:08 Sodium Chloride IV 01/01/23 00:07 DAILY PRN Hypokalemia Magnesium Sulfate 2 gm in 50 mls @ 25 mls/hr 01/01/22 00:08 Magnesium Sulf 2gm-*Swfi* IV 01/01/23 00:07 DAILY PRN Magnesium Level < 1.5 Labetalol HCl 5 mg 01/01/22 00:08 Labetalol 100 Mg/20 Ml Vial IV-PUSH 01/01/23 00:07 Q4H PRN Hypertension Metoprolol Succinate 50 mg 01/01/22 09:00 01/01/22 09:00 Metoprolol Succinate 50 Mg Tab.Er.24h PO 01/01/23 08:59 50 mg DAILY MASOOD Administration Nitroglycerin 0.4 mg 01/01/22 00:08 Nitroglycerin 0.4 Mg Tab.Subl SUBLINGUAL 01/01/23 00:07 Q5M PRN Chest Pain Non-Formulary Medication 750 mg 01/01/22 09:00 Metformin PO 01/01/23 08:59 DAILY MASOOD Ondansetron HCl 4 mg 01/01/22 00:08 Ondansetron 4 Mg/2 Ml Vial IV-PUSH 01/01/23 00:07 Q8H PRN Nausea And Vomiting Sodium Chloride 0 ml 12/31/21 22:26 Sodium Chloride 0.9 % 10 Ml Syringe IV-PUSH 12/31/22 22:25 PRN PRN Flush Documented By: Ronit Caruso MD 01/01/22 1436 Signed By: <Electronically signed by Ronit Caruso MD> 01/01/22 1437 [facility] Work Phone: 1(440) 700-494008-27-2022 History and physical note Author Anabella Dunlap [facility] January 01, 2022 12:22am Note Date/Time January 01, 2022 12 :22am [facility] [address] [place] [address] Hospitalist H&P Signed Patient: Esa Leavitt MR#: [id number] : 1935 Acct:[id number] Age/Sex: 86 / M Adm Date: 2 Loc: ER Room: Type: [facility] ER Attending Dr: Copies to: MD Anabella Boss II, MD Michael W Murray, MD~ HPI DATE OF EXAMINATION: 01/01/22 CHIEF COMPLAINT: chest pain HISTORY OF PRESENT ILLNESS: Patient is an 86-year-old male with history of hypertension/hyperlipidemia and type 2 diabetes mellitus, the patient and his daughters at the bedside denied having any cardiac history in the past who presented to the hospital due to midsternal chest pain that started about 3 hours ago while he was having dinner,the patient stated that he has been having nausea but denied throwing up, deniedhaving any shortness of breath or lightheadedness or sweating, here in the hospital EKG was consistent with A. fib, the patient denied having any history of A. fib, troponin was negative and the rest of his blood work and vital signs were within normal limits, chest x- ray was nonacute and the patient will be admitted to the hospital for further evaluation Review of Systems Review of Systems All other systems reviewed & are negative unless noted below or in HPI PMFSH Vaccinated for COVID-19?: Yes Medical History (Updated 01/01/22 @ 00:18 by Bouchra Duncan MD) Diabetes mellitus Hyperlipidemia Hypertension Social History Smoking Status: Former smoker Tobacco Type: cigarettes Substance Use Type: Alcohol Substance Abuse Comment: 2-3 'S Meds Medications and Allergies Allergies No Known Allergies Allergy (Verified 04/05/21 18:11) Home Medications bisoprolol 5 mg-hydrochlorothiazide 6.25 mg tablet 1 tab PO DAILY 04/05/21 [History Confirmed 01/01/22] metformin 750 mg tablet,extended release 24 hr 750 mg PO DAILY 04/05/21 [History Confirmed 01/01/22] simvastatin 40 mg tablet 40 mg PO DAILY 04/05/21 [History Confirmed 01/01/22] aspirin 81 mg tablet 81 mg PO DAILY 01/01/22 [History Confirmed 01/01/22] ferrous sulfate 325 mg (65 mg iron) tablet 325 mg PO DAILY 01/01/22 [History Confirmed 01/01/22] furosemide 20 mg tablet 20 mg PO DAILY 01/01/22 [History Confirmed 01/01/22] Exam Physical Exam Vital Signs: Temp Pulse Resp BP Pulse Ox O2 Del Method 98.4 F 131 H 24 128/65 93 L Room Air 12/31/21 22:26 12/31/21 23:59 12/31/21 23:44 12/31/21 23:59 12/31/21 23:44 12/31/21 23:44 Narrative: General: patient is alert and oriented HEENT: head atraumatic, normocephalic, moist mucous membranes, normal nose and ears, no throat lesions, normal conjunctiva Neck: supple no masses, no lymphadenopathy CVS: Heart regular rhythm and rate, normal Respiratory: clear to auscultation bilaterally, no wheezing or crackles, symmetric expansion GI: soft, nondistended, nontender, positive bowel sounds with no organomegaly Extremity: Bilateral +3 pitting edema, legs are wrapped up Neuro: alert and oriented x3, normal speech, normal motor function Skin: dry, intact no rashes or lesions MAURICE Risk Score MAURICE Risk Score Predictor Historical: Age > 65 Years Old, 3 or more Risk Factors: FHx,HTN,elevated cholesterol,DM,active smoker and ASA use in Past 7 Days Score Risk Score (0-7): 3 Results Lab Results Labs: Laboratory Last Values Corrected WBC 13.8 X10E3/uL (4.1-10.5) H 12/31/21 22:45 Uncorrected WBC Count 13.8 x10E3/uL (4.5-11.0) H 12/31/21 22:45 RBC 3.96 x10E6/uL (3.90-5.60) 12/31/21 22:45 Hgb 12.7 g/dL (13.0-17.0) L 12/31/21 22:45 Hct 38.5 % (38.8-50.0) L 12/31/21 22:45 MCV 97.4 fl (83.5-101) 12/31/21 22:45 MCH 32.0 pg (27.5-35.2) 12/31/21:45 MCHC 32.9 g/dL (32.5-35.6) 12/31/21:45 RDW 13.3 % (12.0-14.8) 12/31/21 22:45 Plt Count 254 x10E3/uL (150-450) 12/31/21 22:45 MPV 8.7 fl (6.6-10.1) 12/31/21:45 Neut % (Auto) 88.6 % (.) 12/31/21:45 Lymph % (Auto) 4.3 % (.) 12/31/21:45 Armstrong % (Auto) 6.6 % (.) 12/31/21:45 Eos % (Auto) 0.2 % (.) 12/31/21:45 Baso % (Auto) 0.3 % (.) 12/31/21:45 Neut # (Auto) 12.3 x10E3/uL (1.8-7.7) H 12/31/21:45 Lymph # (Auto) 0.6 x10E3/uL (1.00-4.8) L 12/31/21 22:45 Armstrong # (Auto) 0.9 x10E3/uL (0.0-0.8) H 12/31/21 22:45 Eos # (Auto) 0.0 x10E3/uL (0.0-0.45) 12/31/21 22:45 Baso # (Auto) 0.0 x10E3/uL (0.0-0.2) 12/31/21:45 Nucleated RBC % (auto) 0.1 % (0-0.5) 12/31/21 22:45 PT 12.6 Seconds (9.0-12.9) 12/31/21 22:45 INR 1.1 12/31/21 22:45 APTT 29.3 Seconds (25.1-36.5) 12/31/21 22:45 D-Dimer Quant (PE/DVT) 280 ng/mL (0-243) H 12/31/21 22:45 PHA Creatinine Clear N/A 12/31/21 22:45 Sodium 133 mmol/L (136-146) L 12/31/21 22:45 Potassium 3.5 mmol/L (3.5-5.1) 12/31/21 22:45 Chloride 92 mmol/L (95-114) L 12/31/21 22:45 Carbon Dioxide 23.3 mmol/L (22.0-30.0) 12/31/21 22:45 BUN 15 mg/dL (9-23) 12/31/21 22:45 Creatinine 0.59 mg/dL (0.64-1.27) L 12/31/21 22:45 Est GFR ( Amer) > 60 mL/Min 12/31/21 22:45 Est GFR (Non-Af Amer) > 60 mL/Min 12/31/21 22:45 Glucose 194 mg/dL (70-100) H 12/31/21 22:45 Calcium 9.0 mg/dL (8.2-10.2) 12/31/21 22:45 Total Creatine Kinase 74 U/L (22-269) 12/31/21 22:45 CK-MB (CK-2) 3.5 ng/mL (0.6-6.3) 12/31/21 22:45 CK-MB (CK-2) Rel Index 4.7 % (0.00-2.50) H 12/31/21 22:45 Troponin I High Sens 4 pg/mL (0-20) 12/31/21 22:45 B-Natriuretic Peptide 157.0 pg/mL (5-100) H 12/31/21 22:45 COVID-19 PCR Interp N/A 12/31/21 23:52 A&P - Hospitalist Assessment/Plan (1) Chest pain: (2) Atrial fibrillation with rapid ventricular response: Plan Assessment and plan *Midsternal chest pain ? Atypical/noncardiac ? MAURICE score is 3 ? EKG is not concerning and is showing A. fib ? First troponin was negative ? Admit to the floor on telemetry ? Continue to trend troponin ? Echo in the morning ? Continue his aspirin/simvastatin ? Start patient on Toprol-XL 50 mg p.o. daily and hold his bisoprolol ? Cardiology consult for possible stress given his risk factors *Paroxysmal A. fib ? Reportedly no history of A. fib ? Hold his bisoprolol and start patient on Toprol-XL ? Currently rate controlled ? Start patient on Eliquis given his elevated [id number] score ? Echo is pending ? Check TSH and free T4 *Chronic medical issues 1. Hypertension 2. Diabetes 3. Hyperlipidemia ? Continue his home medications Documented By: Anabella Stone MD 2 0014 Signed By: <Electronically signed by Anabella Stone MD> 01/01/22 0022 [facility] Work Phone: Consult note Author Anderson Ambrosio [facility] January 01, 2022 4:03pm Note Date/Time January 01, 2022 4: 02pm [facility] [address] [place] [address] Cardiology Consult Note Signed Patient: Esa Leavitt MR#: [id number] : 1935 Acct:[id number] Age/Sex: 86 / M Adm Date: 2 Loc: Room: [address] [place] [address] Type: ADM IN Attending Dr: Ronit Caruso MD Copies to: MD Ronit Boss II, MD Stephen M Tann, MD~ Cardiology HPI History of Present Illness Consult Date: 01/01/22 Reason for Consult: Chest pain HPI: Mr. Leavitt is a 86 year old male with no known prior cardiac history who was in his normal state of health until yesterday evening when while eating dinner he noticed a relatively abrupt onset of a sharp substernal chest pain. Patient denies any antecedent symptoms or antecedent chest pain over the preceding few days. He states while he was home eating dinner with his family he noted a relative abrupt onset of a sharp knifelike chest discomfort in the center of hischest. There was no radiation of the pain. There was no associated dyspnea nausea vomiting or diaphoresis. The pain was relatively constant for several hours he denies a subjective sensation of palpitations or racing heart. He denies any lightheadedness dizziness presyncope or syncope. With persistence of the chest discomfort for several hours EMS was activated andthe patient was brought to the emergency department at [facility]. He was found by first EKG to be in atrial fibrillation with ventricular response in the 95 to 100 bpm range. The patient was admitted to the inpatient hospitalist service. He was started on rate control with oral beta-may, and he was also started on oral anticoagulation with DOAC. EKGs have been negative for any type of ischemic change and serial troponins have been negative with a flat curve. Earlier today the patient converted to normal sinus rhythm after his first dose of oral beta-may. He currently denies any chest pain palpitations or other cardiac symptoms. He is hemodynamically stable with stable vital signs. I am now consulted for further cardiac evaluation and management. Of note his familyis at his bedside including his and 2 daughters. They are very concerned about further evaluation of the patient's current clinical syndrome given the fact that both daughters are no longer going to be with the patient starting tomorrow and the fact that he has very limited mobility and access to transportation. PMFSH Vaccinated for COVID-19?: Unknown Medical History Diabetes mellitus Hyperlipidemia Hypertension Social History Smoking Status: Former smoker Tobacco Type: cigarettes Substance Use Type: Alcohol Substance Abuse Comment: 2-3 'S DAY Meds Medications and Allergies Allergies No Known Allergies Allergy (Verified 04/05/21 18:11) Home Medications bisoprolol 5 mg-hydrochlorothiazide 6.25 mg tablet 1 tab PO DAILY 04/05/21 [History Confirmed 01/01/22] metformin 750 mg tablet,extended release 24 hr 750 mg PO DAILY 04/05/21 [History Confirmed 01/01/22] simvastatin 40 mg tablet 40 mg PO DAILY 04/05/21 [History Confirmed 01/01/22] aspirin 81 mg tablet 81 mg PO DAILY 01/01/22 [History Confirmed 01/01/22] ferrous sulfate 325 mg (65 mg iron) tablet 325 mg PO DAILY 01/01/22 [History Confirmed 01/01/22] furosemide 20 mg tablet 20 mg PO DAILY 01/01/22 [History Confirmed 01/01/22] Exam Physical Exam Vital Signs: Temp Pulse Resp BP Pulse Ox O2 Del Method O2 Flow Rate 98.6 F 71 18 105/56 L 95 Nasal Cannula 2 01/01/22 08:00 01/01/22 08:00 01/01/22 08:00 01/01/22 08:00 01/01/22 08:00 01/01/22 08:46 01/01/22 08:46 Const General: cooperative, comfortable, no acute distress and frail appearing Nutritional Appearance: thin Orientation: alert, awake and oriented x3 HEENT Head: normocephalic and atraumatic Face and sinus: face symmetric Mouth: moist mucous membranes Teeth and gingiva: poor dentition Eyes Conjunctivae: conjunctivae normal Sclera: sclerae normal Pupils: PERRL and accommodation normal EOM: EOM intact bilaterally Neck Neck: no lymphadenopathy and supple Neck mass: No Thyroid: thyroid normal Carotids: normal carotid upstroke Lymphatic: no lymphadenopathy noted Chest Chest palpation & inspection: normal inspection of the chest Resp Effort & Inspection: normal respiratory effort, able to speak in complete sentences and symmetric chest movement Auscultation: clear to auscultation bilaterally Cardio Jugular venous pressure: no JVD Palpation: normal PMI Rate: regular rate Rhythm: regular rhythm Heart Sounds: S1 normal, S2 normal, gallop S4 gallop and murmur systolic I/ and at the left sternal border Pulses: radial pulses present, posterior tibial pulses present and dorsalis pedis present GI Inspection: normal to inspection Palpation: soft and no hepatosplenomegaly Percussion: normal to percussion Auscultation: normal bowel sounds Skin General: no rashes or lesions noted Trauma: no lacerations or abrasions Wounds: no wounds Neuro General: patient alert, patient awake, patient oriented x3, moves all extremities and no focal motor deficits Cranial Nerves: CN's II-XII intact bilaterally Cognition: normal cognition Speech: speech normal Motor: muscle tone normal throughout Sensory Exam: no sensory deficits noted Extrem General: no clubbing, cyanosis or edema Psych Appearance: grossly normal Mood: congruent mood Affect: normal affect Speech and Movement: speech and movement normal Attitude: cooperative Thought Process: normal Thought Content: normal Insight: insight good Judgment: judgment good MAURICE Risk Score MAURICE Risk Score Predictor Historical: Age > 65 Years Old and 3 or more Risk Factors: FHx,HTN,elevated cholesterol,DM,active smoker Presentation: Recent (>/=24hr) Angina Score Risk Score (0-7): 3 Results Labs CBC & CMP: 01/01/22 06:48 01/01/22 06:48 Lab results: Cardiac Enzymes 12/31/21 12/31/21 01/01/22 Range/Units 22:45 22:45 06:48 AST 18 (10-42) U/L Total Creatine Kinase 74 (22-269) U/L CK-MB (CK-2) 3.5 (0.6-6.3) ng/mL CK-MB (CK-2) Rel Index 4.7 H (0.00-2.50) % B-Natriuretic Peptide 157.0 H (5-100) pg/mL CBC 12/31/21 01/01/22 Range/Units 22:45 06:48 RBC 3.96 3.86 L (3.90-5.60) x10E6/uL Hgb 12.7 L 12.5 L (13.0-17.0) g/dL Hct 38.5 L 37.4 L (38.8-50.0) % Plt Count 254 228 (150-450) x10E3/uL Neut # (Auto) 12.3 H 13.8 H (1.8-7.7) x10E3/uL Lymph # (Auto) 0.6 L 0.6 L (1.00-4.8) x10E3/uL Armstrong # (Auto) 0.9 H 1.5 H (0.0-0.8) x10E3/uL Eos # (Auto) 0.0 0.0 (0.0-0.45) x10E3/uL Baso # (Auto) 0.0 0.0 (0.0-0.2) x10E3/uL Comprehensive Metabolic Panel 12/31/21 01/01/22 Range/Units 22:45 06:48 Sodium 133 L 131 L (136-146) mmol/L Potassium 3.5 3.8 (3.5-5.1) mmol/L Chloride 92 L 91 L (95-114) mmol/L Carbon Dioxide 23.3 30.0 (22.0-30.0) mmol/L BUN 15 19 (9-23) mg/dL Creatinine 0.59 L 0.70 (0.64-1.27) mg/dL Glucose 194 H 170 H (70-100) mg/dL Calcium 9.0 8.9 (8.2-10.2) mg/dL AST 18 (10-42) U/L ALT 13 (10-60) U/L Alkaline Phosphatase 45 (32-92) U/L Total Protein 6.3 (6.1-7.9) gm/dL Albumin 3.4 (3.2-5.5) gm/dL Intake and Output 12/31/21 01/01/22 01/01/22 23:59 07:59 15:59 Intake Total 300 / 600 300 / 600 Output Total 0 / 400 400 / 400 Balance 300 / 200 -100 / 200 Intake: Oral 300 / 600 300 / 600 Output: Urine 0 / 400 400 / 400 Other: # Voids 0 Weight 70.76 kg 71.1 kg Date of Last Bowel Movement 12/30/21 12/30/21 Patient Weight 01/01/22 23:59 Weight 71.1 kg Lab 12/31/21 22:45 PT 12.6 INR 1.1 APTT 29.3 EKG Interpretations EKG Attestation EKG: I reviewed this ECG and interpreted as documented below: EKG shows: atrial fibrillation Blocks, axis, hypertrophy, ST abn Repolarization changes or abnormalities: nonspecific abnormality, ST segment, and/or T wave A&P - Cardiology (1) Atrial fibrillation with rapid ventricular response: Assessment/Problem Details: First episode with relatively controlled rates. Elevated CV2 score. Now converted back to normal sinus mechanism after first dose of oral beta-blockade Plan: 1. Maintain metoprolol succinate 50 mg daily 2. Maintain oral anticoagulation with DOAC Code(s): I48.91 - Unspecified atrial fibrillation (2) Chest pain: Assessment/Problem Details: Atypical and appears clinically related to episode of paroxysmal atrial fibrillation. Serial negative EKGs and troponins place patient in a low risk category for potential acute coronary syndrome. That said the patient's family is very concerned about this episode and wishes to seek further risk stratification Plan: We will plan to keep the patient in hospital over the weekend. Plan to make thepatient n.p.o. after midnight tomorrow night with plans for Lexiscan nuclear myocardial perfusion imaging Monday Code(s): R07.9 - Chest pain, unspecified Plan Thank you very much for this kind consultation and for allowing me to participate in care of this very pleasant patient and his family. Documented By: Anderson Ambrosio MD 01/01/22 1556 Signed By: <Electronically signed by Anderson Ambrosio MD> 01/01/22 3996 [facility] Work Phone: Discharge summary Author Mohsen Muniz [facility] January 06, 2022 12:58pm Note Date/Time January 06, 2022 12:58pm [facility] [address] [place] [address] Discharge Summary Signed Patient: Esa Leavitt MR#: [id number] : 1935 Acct:[id number] Age/Sex: 86 / M Adm Date: 2 Loc: Room: [address] [place] [address]: Mohsen Muniz MD Copies to: MD Mohsen Boss II, MD~ Providers Date of Discharge: 01/06/22 Discharging Provider: Mohsen Muniz Primary Care Provider: Beto Beckwith Consults: 01/01/22 00:14 Consult to Cardiology Stat 01/03/22 12:18 Consult to Physical Therapy Routine OT [Consult to Occupational Therapy] Routine Discharge Diagnosis (1) Chest pain: (2) Atrial fibrillation with rapid ventricular response: (3) Abnormal stress test: (4) Physical deconditioning: (5) Hyperlipidemia: (6) Hypertension: (7) Diabetes mellitus: Final Diagnosis Final Discharge Diagnosis: As above Summary Hospital Course Hospital course: Mr. Leavitt is an 86yo M with PMH of hypertension, diabetes, hyperlipidemia who presented to the emergency department with complaints of chest pain. Patient was found to be in atrial fibrillation with normal ventricular rate, but reportedly has no history of A. fib. Given elevated [id number], he was started on Eliquis. He was further evaluated for his chest pain with nuclear medicine stress testing. This was positive for possibly apical reversible ischemia. Cardiology team discussed these findings with patient and his family, and patient ultimately decided to continue with medical management only at this time. Otherwise, patient was assessed by physical and Occupational Therapy who recommended retirement placement. He was agreeable and was discharged to SNF with plan for home return as soon as patient is physically able. 35 minutes spent coordinating the discharge of this patient Time Spent with Patient Time spent providing/coordinating discharge services (# min): 35 Diagnostic Studies Completed and Pending Studies Pending studies at discharge: 01/01/22 14:54 Blood Culture Routine Preliminary micro results at discharge 01/01/22 14:58 Blood Culture - Preliminary Blood - Left Hand No Growth 4 Days 01/01/22 14:54 Blood Culture - Preliminary Blood - Right Forearm No Growth 4 Days Labs on day of discharge: 01/05/22 16:33: POC Glucose 147, POC Glucose Comment Glu2: cleaned meter Exam Physical Exam Vital Signs: Temp Pulse Resp BP Pulse Ox O2 Del Method O2 Flow Rate 97.8 F 73 16 132/80 97 Room Air 2 01/06/22 11:44 01/06/22 11:44 01/06/22 11:44 01/06/22 11:44 01/06/22 11:44 01/06/22 11:44 01/06/22 08:00 Narrative: General -awake, alert, oriented ?3, not in acute distress Cardiovascular -S1 with S2 Pulmonary -? clear to auscultation bilaterally Gastrointestinal -? abdomen is soft, nondistended, nontender, bowel sounds positive, there is no rigidity, no rebound Extremities -no edema Neurological -no focal neurological dysfunction noted Discharge Plan Discharge Plan Patient Disposition: Senior Living Facility Activity: No Activity Restriction Diet: Low-Sodium and Low-Cholesterol Additional Instructions: SNF TO MANAGE: PT/OT to eval and treat Monitor VS per protocol--Hx of HTN Monitor FSBS per protocol Maintain high risk fall precautions Care to be managed by SNF providers Prescriptions: New Eliquis 5 mg Tablet 5 mg PO BID 30 Days Qty: 60 12RF diltiazem HCl 180 mg Capsule,Extended Release 24hr 180 mg PO DAILY 30 Days Qty: 30 12RF metoprolol succinate 50 mg Tablet Extended Release 24 Hr 50 mg PO DAILY 30 Days Qty: 30 12RF cyanocobalamin (vitamin B-12) 1,000 mcg Tablet 1,000 mcg PO QAM Qty: 0 0RF Continued ferrous sulfate 325 mg (65 mg iron) tablet 325 mg PO DAILY Label Comments: TAKE 1 TABLET BY MOUTH TWICE A DAY aspirin 81 mg Tablet 81 mg PO DAILY furosemide 20 mg Tablet 20 mg PO DAILY simvastatin 40 mg tablet 40 mg PO DAILY metformin 750 mg tablet extended release 24 hr 750 mg PO DAILY Discontinued bisoprolol-hydrochlorothiazide 5-6.25 mg tablet 1 tab PO DAILY Follow Up: Demetra Iraheta MD [Active Staff] - 03/02/22 11:30 am Documented By: Mohsen Muniz MD 2 1250 Signed By: <Electronically signed by Mohsen Muniz MD> 01/06/22 1258 [facility] Work Phone: Evaluation note* Diagnosis Onset Date Resolution Status Atrial fibrillation with rapid ventricular response acute Chest pain acute Essential hypertension acute [facility] Work Phone: Hospital Discharge instructions Additional Instructions SNF TO MANAGE: PT/OT to eval and treat Monitor VS per protocol--Hx of HTN Monitor FSBS per protocol Maintain high risk fall precautions Care [facility] be [facility] Work Phone: Progress note Author Ronit Caruso [facility] January 01, 2022 2:37pm Note Date/Time January 01, 2022 2: 37pm [facility] [address] [place] [address] Hospitalist Progress Note Signed Patient: Esa Leavitt MR#: [id number] : 1935 Acct:[id number] Age/Sex: 86 / M Adm Date: 2 Loc: Room: [address] [place] [address] Type: ADM IN Attending Dr: Ronit Caruso MD Copies to: ~ Date of Service: 01/01/2022 Subjective Subjective Narrative: Patient was admitted after midnight. The patient has been seen and examined. I personally obtained the bob and critical portions of the history and physical exam. I reviewed the chart, the team's documentation, and discussed the patientcare with the team. I agree with the team's medical decision making and have edited the note to reflect my clinical findings and my assessment and plan. Exam Physical Exam Vital Signs: Temp Pulse Resp BP Pulse Ox O2 Del Method O2 Flow Rate 37.0 C 71 18 105/56 L 95 Nasal Cannula 2 01/01/22 08:00 01/01/22 08:00 01/01/22 08:00 01/01/22 08:00 01/01/22 08:00 01/01/22 08:46 01/01/22 08:46 Objective Lab Results CBC & Chem 7: 01/01/22 06:48 01/01/22 06:48 Microbiology Results Microbiology 12/31/21 23:52 Nasal SARS Antigen (LFIA) - Final Meds Allergies and Active Meds Allergies No Known Allergies Allergy (Verified 04/05/21 18:11) Active Meds: Active Medications Generic Name Dose Route Start Last Admin Trade Name Slava PRN Reason Stop Dose Admin Apixaban 5 mg 01/01/22 09:00 01/01/22 09:00 Apixaban 5 Mg Tablet PO 01/01/23 08:59 5 mg BID MASOOD Administration Aspirin 81 mg 01/01/22 09:00 01/01/22 09:00 Aspirin 81 Mg Tab.Chew PO 01/01/23 08:59 81 mg DAILY MASOOD Administration Atorvastatin Calcium 20 mg 01/01/22 09:00 01/01/22 08:59 Atorvastatin 20 Mg Tablet PO 01/01/23 08:59 20 mg DAILY MASOOD Administration Ferrous Sulfate 324 mg 01/01/22 09:00 01/01/22 09:00 Ferrous Sulfate 324 Mg Tablet.Dr PO 01/01/23 08:59 324 mg DAILY MASOOD Administration Furosemide 20 mg 01/01/22 09:00 01/01/22 09:00 Furosemide 20 Mg Tablet PO 01/01/23 08:59 20 mg DAILY MASOOD Administration Diltiazem HCl 100 mg in 100 mls @ 10 mls/hr 12/31/21 23:45 12/31/21 23:59 Cardizem IV 12/31/22 23:44 10 mg/hr .Q10H MASOOD 10 mls/hr Administration 10 MG/HR Potassium Chloride 20 meq/ 260 mls @ 130 mls/hr 01/01/22 00:08 Sodium Chloride IV 01/01/23 00:07 DAILY PRN Hypokalemia Potassium Chloride 40 meq/ 520 mls @ 130 mls/hr 01/01/22 00:08 Sodium Chloride IV 01/01/23 00:07 DAILY PRN Hypokalemia Magnesium Sulfate 2 gm in 50 mls @ 25 mls/hr 01/01/22 00:08 Magnesium Sulf 2gm-*Swfi* IV 01/01/23 00:07 DAILY PRN Magnesium Level < 1.5 Labetalol HCl 5 mg 01/01/22 00:08 Labetalol 100 Mg/20 Ml Vial IV-PUSH 01/01/23 00:07 Q4H PRN Hypertension Metoprolol Succinate 50 mg 01/01/22 09:00 01/01/22 09:00 Metoprolol Succinate 50 Mg Tab.Er.24h PO 01/01/23 08:59 50 mg DAILY MASOOD Administration Nitroglycerin 0.4 mg 01/01/22 00:08 Nitroglycerin 0.4 Mg Tab.Subl SUBLINGUAL 01/01/23 00:07 Q5M PRN Chest Pain Non-Formulary Medication 750 mg 01/01/22 09:00 Metformin PO 01/01/23 08:59 DAILY MASOOD Ondansetron HCl 4 mg 01/01/22 00:08 Ondansetron 4 Mg/2 Ml Vial IV-PUSH 01/01/23 00:07 Q8H PRN Nausea And Vomiting Sodium Chloride 0 ml 12/31/21 22:26 Sodium Chloride 0.9 % 10 Ml Syringe IV-PUSH 12/31/22 22:25 PRN PRN Flush Documented By: Ronit Caruso MD 01/01/22 1436 Signed By: <Electronically signed by Ronit Caruso MD> 01/01/22 1437 [facility] Work Phone: Progress note Author Demetra Iraheta [facility] January 02, 2022 1:39pm Note Date/Time January 02, 2022 1: 35pm [facility] [address] [place] [address] Cardiology Progress Note Signed Patient: Esa Leavitt MR#: [id number] : 1935 Acct:[id number] Age/Sex: 86 / M Adm Date: 2 Loc: Room: [address] [place] [address] Type: ADM IN Attending Dr: Ronit Caruso MD Copies to: ~ Date of Service: 01/02/2022 Subjective Principal diagnosis: Chest pain Interval history: Patient is chest pain-free, the monitor reveals that he is back in sinus rhythm,EKG will be ordered for confirmation. The patient is scheduled for Lexiscan perfusion study tomorrow, echocardiogram revealed normal ejection fraction Exam Physical Exam Vital Signs: Temp Pulse Resp BP Pulse Ox O2 Del Method O2 Flow Rate 98 F 87 19 158/79 H 92 L Room Air 2 01/02/22 08:00 01/02/22 08:00 01/02/22 08:00 01/02/22 08:00 01/02/22 08:00 01/02/22 08:00 01/01/22 08:46 Const General: cooperative, healthy appearing, comfortable and no acute distress Nutritional Appearance: average body habitus Orientation: alert, awake and oriented x3 HEENT Head: normal to inspection, normocephalic and atraumatic Ears: hearing grossly normal bilaterally Nose: external nose normal Face and sinus: normal facial exam Eyes Conjunctivae: conjunctivae normal Pupils: PERRL Neck Neck: normal visual inspection, full ROM, no lymphadenopathy, trachea midline and supple Neck mass: No Thyroid: thyroid normal Carotids: normal carotid upstroke Resp Effort & Inspection: normal respiratory effort Auscultation: clear to auscultation bilaterally Cardio Jugular venous pressure: no JVD Palpation: normal PMI Rate: regular rate Rhythm: regular rhythm Heart Sounds: S1 normal and S2 normal GI Inspection: normal to inspection Palpation: soft and no hepatosplenomegaly Extrem General: no clubbing, cyanosis or edema Objective Labs CBC & Chem 7: 01/02/22 06:44 01/02/22 06:44 Labs: Laboratory Results - last 24 hr 01/01/22 01/01/22 01/01/22 14:48 16:05 20:51 Corrected WBC Uncorrected WBC Count RBC Hgb Hct MCV MCH MCHC RDW Plt Count MPV Neut % (Auto) Lymph % (Auto) Armstrong % (Auto) Eos % (Auto) Baso % (Auto) Neut # (Auto) Lymph # (Auto) Armstrong # (Auto) Eos # (Auto) Baso # (Auto) Nucleated RBC % (auto) PHA Creatinine Clear Sodium Potassium Chloride Carbon Dioxide BUN Creatinine Est GFR ( Amer) Est GFR (Non-Af Amer) Glucose POC Glucose 130 159 POC Glucose Comment Calcium Urine Color Chambers A Urine Appearance Clear Urine pH 5.5 Ur Specific Sandy 1.020 Urine Protein Negative Urine Glucose (UA) Normal Urine Ketones Negative Urine Occult Blood Negative Urine Nitrite Negative Urine Bilirubin Negative Urine Urobilinogen Normal Ur Leukocyte Esterase Negative Urine RBC 0-1 Urine WBC None seen Ur Squamous Epith Cells 1-2 Urine Bacteria None seen Hyaline Casts 0-8 01/02/22 01/02/22 01/02/22 06:31 06:44 06:44 Corrected WBC 9.4 Uncorrected WBC Count 9.4 RBC 3.77 L Hgb 12.4 L Hct 36.6 L MCV 97.0 MCH 32.8 MCHC 33.8 RDW 13.6 Plt Count 200 MPV 9.9 Neut % (Auto) 79.0 Lymph % (Auto) 9.0 Armstrong % (Auto) 11.1 Eos % (Auto) 0.3 Baso % (Auto) 0.6 Neut # (Auto) 7.4 Lymph # (Auto) 0.8 L Armstrong # (Auto) 1.0 H Eos # (Auto) 0.0 Baso # (Auto) 0.1 Nucleated RBC % (auto) 0.0 PHA Creatinine Clear 62.94 Sodium 130 L Potassium 3.9 Chloride 93 L Carbon Dioxide 28.8 BUN 18 Creatinine 0.61 L Est GFR ( Amer) > 60 Est GFR (Non-Af Amer) > 60 Glucose 124 H POC Glucose 129 POC Glucose Comment Calcium 8.7 Urine Color Urine Appearance Urine pH Ur Specific Sandy Urine Protein Urine Glucose (UA) Urine Ketones Urine Occult Blood Urine Nitrite Urine Bilirubin Urine Urobilinogen Ur Leukocyte Esterase Urine RBC Urine WBC Ur Squamous Epith Cells Urine Bacteria Hyaline Casts 01/02/22 11:42 Corrected WBC Uncorrected WBC Count RBC Hgb Hct MCV MCH MCHC RDW Plt Count MPV Neut % (Auto) Lymph % (Auto) Armstrong % (Auto) Eos % (Auto) Baso % (Auto) Neut # (Auto) Lymph # (Auto) Armstrong # (Auto) Eos # (Auto) Baso # (Auto) Nucleated RBC % (auto) PHA Creatinine Clear Sodium Potassium Chloride Carbon Dioxide BUN Creatinine Est GFR ( Amer) Est GFR (Non-Af Amer) Glucose POC Glucose 144 POC Glucose Comment Glu2: cleaned meter Calcium Urine Color Urine Appearance Urine pH Ur Specific Sandy Urine Protein Urine Glucose (UA) Urine Ketones Urine Occult Blood Urine Nitrite Urine Bilirubin Urine Urobilinogen Ur Leukocyte Esterase Urine RBC Urine WBC Ur Squamous Epith Cells Urine Bacteria Hyaline Casts A&P - Cardiology (1) Atrial fibrillation with rapid ventricular response: Assessment/Problem Details: First episode with relatively controlled rates. Currently appears to be in sinus rhythm Code(s): I48.91 - Unspecified atrial fibrillation Status: Acute Plan: 1. Maintain metoprolol succinate 50 mg daily 2. Maintain oral anticoagulation with DOAC 3. Repeat twelve-lead EKG for confirmation (2) Chest pain: Assessment/Problem Details: Atypical and appears clinically related to episode of paroxysmal atrial fibrillation. Serial negative EKGs and troponins place patient in a low risk category for potential acute coronary syndrome. Code(s): R07.9 - Chest pain, unspecified Status: Acute Plan: Lexiscan Cardiolite stress test tomorrow Documented By: Demetra Iraheta MD, [facility] 2 1332 Signed By: <Electronically signed by [facility] Demetra Iraheta> 01/02/22 1339 [facility] Work Phone: Progress note Author Ronit Caruso [facility] January 02, 2022 6:16pm Note Date/Time January 02, 2022 6: 16pm [facility] [address] [place] [address] Hospitalist Progress Note Signed Patient: Esa Leavitt MR#: [id number] : 1935 Acct:[id number] Age/Sex: 86 / M Adm Date: 2 Loc: Room: [address] [place] [address] Type: ADM IN Attending Dr: Ronit Caruso MD Copies to: ~ Date of Service: 01/02/2022 Subjective Subjective Narrative: Patient has been seen and examined today. He is doing quite well, does not report any chest pain No more fevers, denies any shortness of breath any cough. Denies any abdominal pain any diarrhea. Denies any dysuria General -awake, alert, oriented ?3, not in acute distress Cardiovascular -S1 with S2 Pulmonary - clear to auscultation bilaterally Gastrointestinal - abdomen is soft, nondistended, nontender, bowel sounds positive, there is no rigidity, no rebound Extremities -no edema Neurological -no focal neurological dysfunction noted Exam Physical Exam Vital Signs: Temp Pulse Resp BP Pulse Ox O2 Del Method O2 Flow Rate 36.8 C 83 19 170/80 H 96 Room Air 2 01/02/22 16:00 01/02/22 16:00 01/02/22 16:00 01/02/22 16:00 01/02/22 16:00 01/02/22 16:42 01/01/22 08:46 Objective Lab Results CBC & Chem 7: 01/02/22 06:44 01/02/22 06:44 Microbiology Results Microbiology 01/01/22 14:54 Blood - Right Forearm Blood Culture - Preliminary No Growth 1 Day 01/01/22 14:58 Blood - Left Hand Blood Culture - Preliminary No Growth 1 Day Meds Allergies and Active Meds Allergies No Known Allergies Allergy (Verified 04/05/21 18:11) Active Meds: Active Medications Generic Name Dose Route Start Last Admin Trade Name Freq PRN Reason Stop Dose Admin Apixaban 5 mg 01/01/22 09:00 01/02/22 08:50 Apixaban 5 Mg Tablet PO 01/01/23 08:59 5 mg BID MASOOD Administration Aspirin 81 mg 01/01/22 09:00 01/02/22 08:50 Aspirin 81 Mg Tab.Chew PO 01/01/23 08:59 81 mg DAILY MASOOD Administration Atorvastatin Calcium 20 mg 01/01/22 09:00 01/02/22 08:50 Atorvastatin 20 Mg Tablet PO 01/01/23 08:59 20 mg DAILY MASOOD Administration Dextrose 0 gm 01/01/22 14:39 Dextrose 50% In Water 25 Gm/50 Ml Syringe IV-PUSH 01/01/23 14:38 PRN PRN Hypoglycemia Glucose 0 gm 01/01/22 14:39 Dextrose 40% Gel 15 Gm Tube PO 01/01/23 14:38 PRN PRN Hypoglycemia Potassium Chloride 20 meq/ 260 mls @ 130 mls/hr 01/01/22 00:08 Sodium Chloride IV 01/01/23 00:07 DAILY PRN Hypokalemia Potassium Chloride 40 meq/ 520 mls @ 130 mls/hr 01/01/22 00:08 Sodium Chloride IV 01/01/23 00:07 DAILY PRN Hypokalemia Magnesium Sulfate 2 gm in 50 mls @ 25 mls/hr 01/01/22 00:08 Magnesium Sulf 2gm-*Swfi* IV 01/01/23 00:07 DAILY PRN Magnesium Level < 1.5 Insulin Aspart 0 units 01/01/22 17:00 01/02/22 17:12 Insulin Aspart 300 Units/3 Ml Insuln.Pen SUBCUT 01/01/23 16:59 Not Given TID.WM.HS MASOOD Protocol Labetalol HCl 5 mg 01/01/22 00:08 Labetalol 100 Mg/20 Ml Vial IV-PUSH 01/01/23 00:07 Q4H PRN Hypertension Metoprolol Succinate 50 mg 01/01/22 09:00 01/02/22 08:50 Metoprolol Succinate 50 Mg Tab.Er.24h PO 01/01/23 08:59 50 mg DAILY MASOOD Administration Nitroglycerin 0.4 mg 01/01/22 00:08 Nitroglycerin 0.4 Mg Tab.Subl SUBLINGUAL 01/01/23 00:07 Q5M PRN Chest Pain Ondansetron HCl 4 mg 01/01/22 00:08 Ondansetron 4 Mg/2 Ml Vial IV-PUSH 01/01/23 00:07 Q8H PRN Nausea And Vomiting Regadenoson 0.4 mg 01/03/22 08:00 Regadenoson 0.4 Mg/5 Ml Syringe IV-PUSH 01/03/22 08:01 ONCE ONE Sodium Chloride 0 ml 12/31/21 22:26 01/01/22 17:51 Sodium Chloride 0.9 % 10 Ml Syringe IV-PUSH 12/31/22 22:25 10 ml PRN PRN Administration Flush Sodium Chloride 0 ml 01/03/22 08:00 Sodium Chloride 0.9 % 10 Ml Syringe IV-PUSH 01/03/23 07:59 PRN PRN Flush A&P - Hospitalist Assessment/Plan (1) Chest pain: (2) Atrial fibrillation with rapid ventricular response: Plan 1.Midsternal chest pain ? Atypical/noncardiac ? MAURICE score is 3 ? EKG is not concerning and is showing A. fib ? First troponin was negative, troponins remained flat ? Continue with telemetry ? Continue his aspirin/simvastatin ? Start patient on Toprol-XL 50 mg p.o. daily and hold his bisoprolol ? Cardiology consulted, plan for stress test in a.m. 2.Paroxysmal A. fib ? Reportedly no history of A. fib ? Currently rate controlled ? Start patient on Eliquis given his elevated [id number] score ? Echo is pending ? Check TSH and free T4 3.Leukocytosis, fevers resolved, I do not appreciate any focal signs of infection, blood cultures so far pending Urinalysis no signs of infection, chest x-ray clear without infiltrate *Chronic medical issues 1. Hypertension 2. Diabetes 3. Hyperlipidemia ? Continue his home medications Documented By: Ronit Caruso MD 01/02/221813 Signed By: <Electronically signed by Ronit Caruso MD> 01/02/221815 [facility] Work Phone: Progress note Author Demetra Iraheta [facility] January 03, 2022 12:51pm Note Date/Time January 03, 2022 12 :46pm [facility] [address] [place] [address] Cardiology Progress Note Signed Patient: Esa Leavitt MR#: [id number] : 1935 Acct:[id number] Age/Sex: 86 / M Adm Date: 2 Loc: Room: [address] [place] [address] Type: ADM IN Attending Dr: Mohsen Muniz MD Copies to: ~ Date of Service: 01/03/2022 Subjective Principal diagnosis: Chest pain Interval history: Patient is chest pain-free, the monitor reveals that he is in sinus rhythm today. The patient had Lexiscan perfusion study results available later today if the computer is , echocardiogram revealed normal ejection fraction. The patient can still be discharged home today on oral anticoagulation and we will address the results of the stress test when they become available and will arrange for follow-up in the office. No antiarrhythmic therapy is to start yet Exam Physical Exam Vital Signs: Temp Pulse Resp BP Pulse Ox O2 Del Method O2 Flow Rate 97.8 F 72 18 148/72 H 94 L Room Air 2 01/03/22 08:06 01/03/22 08:06 01/03/22 08:06 01/03/22 08:06 01/03/22 08:06 01/03/22 08:12 01/02/22 23:46 Const General: cooperative, healthy appearing, comfortable and no acute distress Nutritional Appearance: average body habitus Orientation: alert, awake and oriented x3 HEENT Head: normal to inspection, normocephalic and atraumatic Ears: hearing grossly normal bilaterally Nose: external nose normal Face and sinus: normal facial exam Eyes Conjunctivae: conjunctivae normal Pupils: PERRL Neck Neck: normal visual inspection, full ROM, no lymphadenopathy, trachea midline and supple Neck mass: No Thyroid: thyroid normal Carotids: normal carotid upstroke Resp Effort & Inspection: normal respiratory effort Auscultation: clear to auscultation bilaterally Cardio Jugular venous pressure: no JVD Palpation: normal PMI Rate: regular rate Rhythm: regular rhythm Heart Sounds: S1 normal and S2 normal GI Inspection: normal to inspection Palpation: soft and no hepatosplenomegaly Extrem General: no clubbing, cyanosis or edema Objective Labs CBC & Chem 7: 01/02/22 06:44 01/02/22 06:44 Labs: Laboratory Results - last 24 hr 01/02/22 01/02/22 01/03/22 16:11 21:22 06:20 POC Glucose 142 134 162 POC Glucose Comment Glu2: cleaned meter 01/03/22 11:01 POC Glucose 113 POC Glucose Comment A&P - Cardiology (1) Atrial fibrillation with rapid ventricular response: Assessment/Problem Details: Patient is in and Out of atrial fibrillation but currently he is in sinus rhythmand on Eliquis. Code(s): I48.91 - Unspecified atrial fibrillation Status: Acute Plan: Continue Eliquis, add diltiazem CD1 80 mg daily (2) Chest pain: Assessment/Problem Details: Atypical currently with no recurrences, nuclear stress test was done today, the result will be available later. Code(s): R07.9 - Chest pain, unspecified Status: Acute Documented By: Demetra Iraheta MD, [facility] 2 1245 Signed By: <Electronically signed by [facility] Demetra Iraheta> 01/03/22 1251 [facility] Work Phone: Progress note Author Mohsen Muniz [facility] January 03, 2022 7:41pm Note Date/Time January 03, 2022 7: 16pm [facility] [address] [place] [address] Hospitalist Progress Note Signed Patient: Esa Leavitt MR#: [id number] : 1935 Acct:[id number] Age/Sex: 86 / M Adm Date: 08/27/2 2 Loc: 3T Room: 0O7880-8 Type: ADM IN Attending Dr: Mohsen Muniz MD Copies to: ~ Date of Service: 01/03/2022 Subjective Subjective Narrative: Patient has been seen and examined today. Patient continues to not report any chest pain. He does note generalized weakness, and was seen and assessed after physical and Occupational Therapy today. General -awake, alert, oriented ?3, not in acute distress Cardiovascular -S1 with S2 Pulmonary - clear to auscultation bilaterally Gastrointestinal - abdomen is soft, nondistended, nontender, bowel sounds positive, there is no rigidity, no rebound Extremities -no edema Neurological -no focal neurological dysfunction noted Exam Physical Exam Vital Signs: Temp Pulse Resp BP Pulse Ox O2 Del Method O2 Flow Rate 97.8 F 67 18 156/65 H 96 Room Air 2 01/03/22 08:06 01/03/22 16:00 01/03/22 16:00 01/03/22 16:00 01/03/22 16:00 01/03/22 16:00 01/02/22 23:46 Objective Lab Results CBC & Chem 7: 01/02/22 06:44 01/02/22 06:44 Microbiology Results Microbiology 01/01/22 14:54 Blood - Right Forearm Blood Culture - Preliminary No Growth 2 Days 01/01/22 14:58 Blood - Left Hand Blood Culture - Preliminary No Growth 2 Days Meds Allergies and Active Meds Allergies No Known Allergies Allergy (Verified 04/05/21 18:11) Active Meds: Active Medications Generic Name Dose Route Start Last Admin Trade Name Hadleyq PRN Reason Stop Dose Admin Acetaminophen 650 mg 01/03/22 10:05 01/03/22 16:41 Acetaminophen 325 Mg Tablet PO 01/03/23 10:04 650 mg Q6H PRN Administration Pain Apixaban 5 mg 01/01/22 09:00 01/03/22 08:19 Apixaban 5 Mg Tablet PO 01/01/23 08:59 5 mg BID MASOOD Administration Aspirin 81 mg 01/01/22 09:00 01/03/22 08:18 Aspirin 81 Mg Tab.Chew PO 01/01/23 08:59 81 mg DAILY MASOOD Administration Atorvastatin Calcium 20 mg 01/01/22 09:00 01/03/22 08:18 Atorvastatin 20 Mg Tablet PO 01/01/23 08:59 20 mg DAILY MASOOD Administration Dextrose 0 gm 01/01/22 14:39 Dextrose 50% In Water 25 Gm/50 Ml Syringe IV-PUSH 01/01/23 14:38 PRN PRN Hypoglycemia Diltiazem HCl 180 mg 01/03/22 14:00 01/03/22 13:25 Diltiazem Cd.24hr 180 Mg Cap.Er.24h PO 01/03/23 13:59 180 mg DAILY MASOOD Administration Glucose 0 gm 01/01/22 14:39 Dextrose 40% Gel 15 Gm Tube PO 01/01/23 14:38 PRN PRN Hypoglycemia Potassium Chloride 20 meq/ 260 mls @ 130 mls/hr 01/01/22 00:08 Sodium Chloride IV 01/01/23 00:07 DAILY PRN Hypokalemia Potassium Chloride 40 meq/ 520 mls @ 130 mls/hr 01/01/22 00:08 Sodium Chloride IV 01/01/23 00:07 DAILY PRN Hypokalemia Magnesium Sulfate 2 gm in 50 mls @ 25 mls/hr 01/01/22 00:08 Magnesium Sulf 2gm-*Swfi* IV 01/01/23 00:07 DAILY PRN Magnesium Level < 1.5 Insulin Aspart 0 units 01/01/22 17:00 01/03/22 16:41 Insulin Aspart 300 Units/3 Ml Insuln.Pen SUBCUT 01/01/23 16:59 Not Given TID.WM.[facility] Protocol Ketorolac Tromethamine 30 mg 01/03/22 17:44 Ketorolac Tromethamine 30 Mg/Ml Vial IV-PUSH 01/08/22 17:43 Q6H PRN Severe Pain Labetalol HCl 5 mg 01/01/22 00:08 Labetalol 100 Mg/20 Ml Vial IV-PUSH 01/01/23 00:07 Q4H PRN Hypertension Metoprolol Succinate 50 mg 01/01/22 09:00 01/03/22 08:18 Metoprolol Succinate 50 Mg Tab.Er.24h PO 01/01/23 08:59 50 mg DAILY MASOOD Administration Nitroglycerin 0.4 mg 01/01/22 00:08 Nitroglycerin 0.4 Mg Tab.Subl SUBLINGUAL 01/01/23 00:07 Q5M PRN Chest Pain Ondansetron HCl 4 mg 01/01/22 00:08 Ondansetron 4 Mg/2 Ml Vial IV-PUSH 01/01/23 00:07 Q8H PRN Nausea And Vomiting Pantoprazole Sodium 40 mg 01/04/22 09:00 Pantoprazole 40 Mg Vial IV-PUSH 01/04/23 08:59 DAILY MASOOD Sodium Chloride 0 ml 12/31/21 22:26 01/03/22 12:15 Sodium Chloride 0.9 % 10 Ml Syringe IV-PUSH 12/31/22 22:25 30 ml PRN PRN Administration Flush Sodium Chloride 0 ml 01/03/22 08:00 Sodium Chloride 0.9 % 10 Ml Syringe IV-PUSH 01/03/23 07:59 PRN PRN Flush Sodium Chloride 10 ml 01/03/22 17:45 Sodium Chloride 0.9 % 10 Ml Vial.Pf INJECTION 01/03/23 17:44 PRN PRN Dilution Sodium Chloride 10 ml 01/03/22 17:45 Sodium Chloride 0.9 % 10 Ml Syringe IV-PUSH 01/03/23 17:44 PRN PRN Flush A&P - Hospitalist Assessment/Plan (1) Chest pain: (2) Atrial fibrillation with rapid ventricular response: Plan Midsternal Chest Pain Atypical/non-cardiac. Patient underwent stress testing today. MAURICE score is 3 ? EKG is not concerning and is showing A. fib ? First troponin was negative, troponins remained flat ? Continue with telemetry - Cardiology following, cardiac meds per their recommendations Paroxysmal A. fib, new diagnosis ? Reportedly no history of A. fib ? Currently rate controlled ? Cont patient on Eliquis given his elevated [id number] score Generalized deconditioning PT/OT assessment recommends SNF versus acute inpatient rehab. Patient reported lives at home alone -Case management to assist in placement Leukocytosis, fevers resolved, I do not appreciate any focal signs of infection,blood cultures so far pending Urinalysis no signs of infection, chest x-ray clear without infiltrate *Chronic Medical Issues 1. Hypertension 2. Diabetes 3. Hyperlipidemia ? Continue his home medications Documented By: Mohsen Muniz MD 1913 Signed By: <Electronically signed by Mohsen Muniz MD> 01/03/221940 [facility] Work Phone: Progress note Author Mohsen Muniz [facility] January 04, 2022 11:51am Note Date/Time January 04, 2022 11 :51am [facility] [address] [place] [address] Hospitalist Progress Note Signed Patient: Esa Leavitt MR#: [id number] : 1935 Acct:[id number] Age/Sex: 86 / M Adm Date: 2 Loc: Room: [address] [place] [address] Type: ADM IN Attending Dr: Mohsen Muniz MD Copies to: ~ Date of Service: 01/04/2022 Subjective Subjective Narrative: Patient has been seen and examined today. He does note thickened sputum production, but has no issues with respirations at this time. Denies any fever/chill, chest pain, nausea/vomiting or other symptoms at this time. General -awake, alert, oriented ?3, not in acute distress Cardiovascular -S1 with S2 Pulmonary - clear to auscultation bilaterally Gastrointestinal - abdomen is soft, nondistended, nontender, bowel sounds positive, there is no rigidity, no rebound Extremities -no edema Neurological -no focal neurological dysfunction noted Exam Physical Exam Vital Signs: Temp Pulse Resp BP Pulse Ox O2 Del Method O2 Flow Rate 97.5 F L 67 18 154/79 H 95 Room Air 2 01/04/22 05:35 01/04/22 11:19 01/04/22 11:19 01/04/22 11:19 01/04/22 11:19 01/04/22 11:19 01/04/22 08:00 Objective Lab Results CBC & Chem 7: 01/04/22 06:26 01/04/22 08:06 Microbiology Results Microbiology 01/01/22 14:54 Blood - Right Forearm Blood Culture - Preliminary No Growth 2 Days 01/01/22 14:58 Blood - Left Hand Blood Culture - Preliminary No Growth 2 Days Meds Allergies and Active Meds Allergies No Known Allergies Allergy (Verified 04/05/21 18:11) Active Meds: Active Medications Generic Name Dose Route Start Last Admin Trade Name Freq PRN Reason Stop Dose Admin Acetaminophen 650 mg 01/03/22 10:05 01/03/22 16:41 Acetaminophen 325 Mg Tablet PO 01/03/23 10:04 650 mg Q6H PRN Administration Pain Apixaban 5 mg 01/01/22 09:00 01/04/22 08:37 Apixaban 5 Mg Tablet PO 01/01/23 08:59 5 mg BID MASOOD Administration Aspirin 81 mg 01/01/22 09:00 01/04/22 08:37 Aspirin 81 Mg Tab.Chew PO 01/01/23 08:59 81 mg DAILY MASOOD Administration Atorvastatin Calcium 20 mg 01/01/22 09:00 01/04/22 08:37 Atorvastatin 20 Mg Tablet PO 01/01/23 08:59 20 mg DAILY MASOOD Administration Cyanocobalamin 1,000 mcg 01/05/22 09:00 Cyanocobalamin 1,000 Mcg Tablet PO 01/05/23 08:59 QAM MASOOD Dextrose 0 gm 01/01/22 14:39 Dextrose 50% In Water 25 Gm/50 Ml Syringe IV-PUSH 01/01/23 14:38 PRN PRN Hypoglycemia Diltiazem HCl 180 mg 01/03/22 14:00 01/04/22 08:37 Diltiazem Cd.24hr 180 Mg Cap.Er.24h PO 01/03/23 13:59 180 mg DAILY MASOOD Administration Glucose 0 gm 01/01/22 14:39 Dextrose 40% Gel 15 Gm Tube PO 01/01/23 14:38 PRN PRN Hypoglycemia Potassium Chloride 20 meq/ 260 mls @ 130 mls/hr 01/01/22 00:08 Sodium Chloride IV 01/01/23 00:07 DAILY PRN Hypokalemia Potassium Chloride 40 meq/ 520 mls @ 130 mls/hr 01/01/22 00:08 Sodium Chloride IV 01/01/23 00:07 DAILY PRN Hypokalemia Magnesium Sulfate 2 gm in 50 mls @ 25 mls/hr 01/01/22 00:08 Magnesium Sulf 2gm-*Swfi* IV 01/01/23 00:07 DAILY PRN Magnesium Level < 1.5 Insulin Aspart 0 units 01/01/22 17:00 01/04/22 11:19 Insulin Aspart 300 Units/3 Ml Insuln.Pen SUBCUT 01/01/23 16:59 Not Given TID.WM.HS [facility] Protocol Ketorolac Tromethamine 30 mg 01/03/22 17:44 01/04/22 05:32 Ketorolac Tromethamine 30 Mg/Ml Vial IV-PUSH 01/08/22 17:43 30 mg Q6H PRN Administration Severe Pain Labetalol HCl 5 mg 01/01/22 00:08 Labetalol 100 Mg/20 Ml Vial IV-PUSH 01/01/23 00:07 Q4H PRN Hypertension Metoprolol Succinate 50 mg 01/01/22 09:00 01/04/22 08:37 Metoprolol Succinate 50 Mg Tab.Er.24h PO 01/01/23 08:59 50 mg DAILY MASOOD Administration Nitroglycerin 0.4 mg 01/01/22 00:08 Nitroglycerin 0.4 Mg Tab.Subl SUBLINGUAL 01/01/23 00:07 Q5M PRN Chest Pain Ondansetron HCl 4 mg 01/01/22 00:08 Ondansetron 4 Mg/2 Ml Vial IV-PUSH 01/01/23 00:07 Q8H PRN Nausea And Vomiting Pantoprazole Sodium 40 mg 01/04/22 09:00 01/04/22 08:37 Pantoprazole 40 Mg Vial IV-PUSH 01/04/23 08:59 40 mg DAILY MASOOD Administration Sodium Chloride 0 ml 12/31/21 22:26 01/04/22 05:32 Sodium Chloride 0.9 % 10 Ml Syringe IV-PUSH 12/31/22 22:25 10 ml PRN PRN Administration Flush Sodium Chloride 0 ml 01/03/22 08:00 Sodium Chloride 0.9 % 10 Ml Syringe IV-PUSH 01/03/23 07:59 PRN PRN Flush Sodium Chloride 10 ml 01/03/22 17:45 Sodium Chloride 0.9 % 10 Ml Vial.Pf INJECTION 01/03/23 17:44 PRN PRN Dilution Sodium Chloride 10 ml 01/03/22 17:45 Sodium Chloride 0.9 % 10 Ml Syringe IV-PUSH 01/03/23 17:44 PRN PRN Flush A&P - Hospitalist Assessment/Plan (1) Chest pain: (2) Atrial fibrillation with rapid ventricular response: Plan Midsternal Chest Pain Abnormal stress test Atypical/non-cardiac. Patient underwent stress testing, and there was evidence of small reversible apical perfusion defect. Will defer to cardiology for further management. Report is not finalized at this time. MAURICE score is 3 ? Continue with telemetry - Cardiology following, cardiac meds per their recommendations Paroxysmal A. fib, new diagnosis ? Reportedly no history of A. fib ? Currently rate controlled ? Cont patient on Eliquis given his elevated [id number] score Generalized deconditioning PT/OT assessment recommends SNF versus acute inpatient rehab. Patient reported lives at home alone -Case management to assist in placement -Replete B12 Leukocytosis, fevers resolved, I do not appreciate any focal signs of infection,blood cultures so far pending Urinalysis no signs of infection, chest x-ray clear without infiltrate *Chronic Medical Issues 1. Hypertension 2. Diabetes 3. Hyperlipidemia ? Continue his home medications Documented By: Mohsen Muniz MD 2 1145 Signed By: <Electronically signed by Mohsen Muniz MD> 01/04/22 1151 [facility] Work Phone: Progress note Author Demetra Iraheta [facility] January 04, 2022 4:33pm Note Date/Time January 04, 2022 4: 29pm [facility] [address] [place] [address] Cardiology Progress Note Signed Patient: Esa Leavitt MR#: [id number] : 1935 Acct:[id number] Age/Sex: 86 / M Adm Date: 2 Loc: Room: [address] [place] [address] Type: ADM IN Attending Dr: Mohsen Muniz MD Copies to: ~ Date of Service: 01/04/2022 Subjective Principal diagnosis: Chest pain Interval history: No recurrence since admission, patient had nuclear stress test which showed small apical ischemia. Discussed the case with the patient's and they agreed for the time being to let him stay on current medications let him recoverfrom the event since he is very weak and in few weeks consider cardiac catheterization. His past medical therapy should suffice. He has no recurrenceof atrial fibrillation Exam Physical Exam Vital Signs: Temp Pulse Resp BP Pulse Ox O2 Del Method O2 Flow Rate 97.9 F 62 18 169/76 H 97 Room Air 2 01/04/22 15:55 01/04/22 15:55 01/04/22 15:55 01/04/22 15:55 01/04/22 15:55 01/04/22 15:55 01/04/22 08:00 Const General: cooperative, healthy appearing, comfortable and no acute distress Nutritional Appearance: average body habitus Orientation: alert, awake and oriented x3 HEENT Head: normal to inspection, normocephalic and atraumatic Ears: hearing grossly normal bilaterally Nose: external nose normal Face and sinus: normal facial exam Eyes Conjunctivae: conjunctivae normal Pupils: PERRL Neck Neck: normal visual inspection, full ROM, no lymphadenopathy, trachea midline and supple Neck mass: No Thyroid: thyroid normal Carotids: normal carotid upstroke Resp Effort & Inspection: normal respiratory effort Auscultation: clear to auscultation bilaterally Cardio Jugular venous pressure: no JVD Palpation: normal PMI Rate: regular rate Rhythm: regular rhythm Heart Sounds: S1 normal and S2 normal GI Inspection: normal to inspection Palpation: soft and no hepatosplenomegaly Extrem General: no clubbing, cyanosis or edema Objective Labs CBC & Chem 7: 01/04/22 06:26 01/04/22 08:06 Labs: Laboratory Results - last 24 hr 01/03/22 01/03/22 01/04/22 15:41 20:45 06:26 Corrected WBC 6.1 Uncorrected WBC Count 6.1 RBC 3.74 L Hgb 12.3 L Hct 36.2 L MCV 96.7 MCH 32.9 MCHC 34.0 RDW 13.2 Plt Count 214 MPV 10.6 H Neut % (Auto) 76.0 Lymph % (Auto) 8.6 Armstrong % (Auto) 12.6 Eos % (Auto) 2.3 Baso % (Auto) 0.5 Neut # (Auto) 4.6 Lymph # (Auto) 0.5 L Armstrong # (Auto) 0.8 Eos # (Auto) 0.1 Baso # (Auto) 0.0 Nucleated RBC % (auto) 0.0 PHA Creatinine Clear Sodium Potassium Chloride Carbon Dioxide Anion Gap BUN Creatinine Est GFR ( Amer) Est GFR (Non-Af Amer) Glucose POC Glucose 139 241 POC Glucose Comment Glu2: cleaned meter Calcium Total Bilirubin AST ALT Alkaline Phosphatase Total Protein Albumin Globulin Albumin/Globulin Ratio Vitamin B12 25-OH Vitamin D Total Folate TSH 3rd Generation 01/04/22 01/04/22 01/04/22 06:47 08:06 11:11 Corrected WBC Uncorrected WBC Count RBC Hgb Hct MCV MCH MCHC RDW Plt Count MPV Neut % (Auto) Lymph % (Auto) Armstrong % (Auto) Eos % (Auto) Baso % (Auto) Neut # (Auto) Lymph # (Auto) Armstrong # (Auto) Eos # (Auto) Baso # (Auto) Nucleated RBC % (auto) PHA Creatinine Clear 62.94 Sodium 131 L Potassium 3.8 Chloride 94 L Carbon Dioxide 28.6 Anion Gap 12.2 BUN 14 Creatinine 0.56 L Est GFR ( Amer) > 60 Est GFR (Non-Af Amer) > 60 Glucose 124 H POC Glucose 119 177 POC Glucose Comment Calcium 8.6 Total Bilirubin 0.9 AST 14 ALT 11 Alkaline Phosphatase 44 Total Protein 6.2 Albumin 3.0 L Globulin 3.2 Albumin/Globulin Ratio 0.9 Vitamin B12 89 L 25-OH Vitamin D Total 60.5 Folate 15.7 TSH 3rd Generation 2.07 01/04/22 16:18 Corrected WBC Uncorrected WBC Count RBC Hgb Hct MCV MCH MCHC RDW Plt Count MPV Neut % (Auto) Lymph % (Auto) Armstrong % (Auto) Eos % (Auto) Baso % (Auto) Neut # (Auto) Lymph # (Auto) Armstrong # (Auto) Eos # (Auto) Baso # (Auto) Nucleated RBC % (auto) PHA Creatinine Clear Sodium Potassium Chloride Carbon Dioxide Anion Gap BUN Creatinine Est GFR ( Amer) Est GFR (Non-Af Amer) Glucose POC Glucose 135 POC Glucose Comment Calcium Total Bilirubin AST ALT Alkaline Phosphatase Total Protein Albumin Globulin Albumin/Globulin Ratio Vitamin B12 25-OH Vitamin D Total Folate TSH 3rd Generation A&P - Cardiology (1) Atrial fibrillation with rapid ventricular response: Assessment/Problem Details: Patient is in and Out of atrial fibrillation but currently he is in sinus rhythmand on Eliquis. Code(s): I48.91 - Unspecified atrial fibrillation Status: Acute Plan: Continue Eliquis, add diltiazem 180 mg daily (2) Chest pain: Assessment/Problem Details: Atypical currently with no recurrences, nuclear stress test revealed small apical ischemia. As noted above in HPI after long discussion with the patient'swife the plan is to manage conservatively for the time being and consider invasive work-up when the patient is stronger as an outpatient. Continue aspirin/statin and beta-blockers Code(s): R07.9 - Chest pain, unspecified Status: Acute (3) Essential hypertension: Assessment/Problem Details: Remains slightly elevated Code(s): I10 - Essential (primary) hypertension Status: Acute Plan: Continue present medications Documented By: Demetra Iraheta MD, [facility] 2 1628 Signed By: <Electronically signed by MD AIDA Iraheta> 01/04/22 1633 [facility] Work Phone: Progress note Author Mohsen Muniz [facility] January 05, 2022 12:53pm Note Date/Time January 05, 2022 12 :53pm [facility] [address] [place] [address] Hospitalist Progress Note Signed Patient: Esa Leavitt MR#: [id number] : 1935 Acct:[id number] Age/Sex: 86 / M Adm Date: 2 Loc: Room: [address] [place] [address] Type: ADM IN Attending Dr: Mohsen Muniz MD Copies to: ~ Date of Service: 01/05/2022 Subjective Subjective Narrative: Patient has been seen and examined today. He notes no major complaints at this time. Notes that his productive cough has improved overall. General -awake, alert, oriented ?3, not in acute distress Cardiovascular -S1 with S2 Pulmonary - clear to auscultation bilaterally Gastrointestinal - abdomen is soft, nondistended, nontender, bowel sounds positive, there is no rigidity, no rebound Extremities -no edema Neurological -no focal neurological dysfunction noted Exam Physical Exam Vital Signs: Temp Pulse Resp BP Pulse Ox O2 Del Method O2 Flow Rate 97.7 F 79 18 166/75 H 94 L Room Air 2 01/05/22 07:57 01/05/22 07:57 01/05/22 07:57 01/05/22 07:57 01/05/22 07:57 01/05/22 08:05 01/04/22 08:00 Objective Lab Results CBC & Chem 7: 01/04/22 06:26 01/04/22 08:06 Microbiology Results Microbiology 01/01/22 14:54 Blood - Right Forearm Blood Culture - Preliminary No Growth 3 Days 01/01/22 14:58 Blood - Left Hand Blood Culture - Preliminary No Growth 3 Days Meds Allergies and Active Meds Allergies No Known Allergies Allergy (Verified 04/05/21 18:11) Active Meds: Active Medications Generic Name Dose Route Start Last Admin Trade Name Slava PRN Reason Stop Dose Admin Acetaminophen 650 mg 01/03/22 10:05 01/03/22 16:41 Acetaminophen 325 Mg Tablet PO 01/03/23 10:04 650 mg Q6H PRN Administration Pain Apixaban 5 mg 01/01/22 09:00 01/05/22 08:05 Apixaban 5 Mg Tablet PO 01/01/23 08:59 5 mg BID MASOOD Administration Aspirin 81 mg 01/01/22 09:00 01/05/22 08:04 Aspirin 81 Mg Tab.Chew PO 01/01/23 08:59 81 mg DAILY MASOOD Administration Atorvastatin Calcium 20 mg 01/01/22 09:00 01/05/22 08:04 Atorvastatin 20 Mg Tablet PO 01/01/23 08:59 20 mg DAILY MASOOD Administration Cyanocobalamin 1,000 mcg 01/05/22 09:00 01/05/22 08:04 Cyanocobalamin 1,000 Mcg Tablet PO 01/05/23 08:59 1,000 mcg QAM MASOOD Administration Dextrose 0 gm 01/01/22 14:39 Dextrose 50% In Water 25 Gm/50 Ml Syringe IV-PUSH 01/01/23 14:38 PRN PRN Hypoglycemia Diltiazem HCl 180 mg 01/03/22 14:00 01/05/22 08:04 Diltiazem Cd.24hr 180 Mg Cap.Er.24h PO 01/03/23 13:59 180 mg DAILY MASOOD Administration Glucose 0 gm 01/01/22 14:39 Dextrose 40% Gel 15 Gm Tube PO 01/01/23 14:38 PRN PRN Hypoglycemia Guaifenesin 1,200 mg 01/04/22 11:45 01/04/22 21:36 Guaifenesin 600 Mg Tab.Er.12h PO 01/04/23 11:44 1,200 mg BID PRN Administration Congestion Potassium Chloride 20 meq/ 260 mls @ 130 mls/hr 01/01/22 00:08 Sodium Chloride IV 01/01/23 00:07 DAILY PRN Hypokalemia Potassium Chloride 40 meq/ 520 mls @ 130 mls/hr 01/01/22 00:08 Sodium Chloride IV 01/01/23 00:07 DAILY PRN Hypokalemia Magnesium Sulfate 2 gm in 50 mls @ 25 mls/hr 01/01/22 00:08 Magnesium Sulf 2gm-*Swfi* IV 01/01/23 00:07 DAILY PRN Magnesium Level < 1.5 Insulin Aspart 0 units 01/01/22 17:00 01/05/22 08:04 Insulin Aspart 300 Units/3 Ml Insuln.Pen SUBCUT 01/01/23 16:59 Not Given TID.WM.[facility] Protocol Ketorolac Tromethamine 30 mg 01/03/22 17:44 01/05/22 08:05 Ketorolac Tromethamine 30 Mg/Ml Vial IV-PUSH 01/08/22 17:43 30 mg Q6H PRN Administration Severe Pain Labetalol HCl 5 mg 01/01/22 00:08 Labetalol 100 Mg/20 Ml Vial IV-PUSH 01/01/23 00:07 Q4H PRN Hypertension Metoprolol Succinate 50 mg 01/01/22 09:00 01/05/22 08:05 Metoprolol Succinate 50 Mg Tab.Er.24h PO 01/01/23 08:59 50 mg DAILY MASOOD Administration Nitroglycerin 0.4 mg 01/01/22 00:08 Nitroglycerin 0.4 Mg Tab.Subl SUBLINGUAL 01/01/23 00:07 Q5M PRN Chest Pain Omeprazole 20 mg 01/06/22 09:00 Omeprazole 20 Mg Capsule. PO 01/06/23 08:59 DAILY MASOOD Ondansetron HCl 4 mg 01/01/22 00:08 Ondansetron 4 Mg/2 Ml Vial IV-PUSH 01/01/23 00:07 Q8H PRN Nausea And Vomiting Sodium Chloride 0 ml 12/31/21 22:26 01/05/22 00:53 Sodium Chloride 0.9 % 10 Ml Syringe IV-PUSH 12/31/22 22:25 10 ml PRN PRN Administration Flush Sodium Chloride 0 ml 01/03/22 08:00 Sodium Chloride 0.9 % 10 Ml Syringe IV-PUSH 01/03/23 07:59 PRN PRN Flush A&P - Hospitalist Assessment/Plan (1) Chest pain: (2) Atrial fibrillation with rapid ventricular response: Plan Midsternal Chest Pain Abnormal stress test Patient underwent stress testing, and there was evidence of small reversible apical perfusion defect. Cardiology has discussed this with patient and he willremain on medical therapy only for this time. They may consider invasive investigation with cardiac cath as an outpatient, after strengthening of patient. ? Continue with telemetry - Cardiology following, cardiac meds per their recommendations Paroxysmal A. fib, new diagnosis ? Reportedly no history of A. fib ? Currently rate controlled ? Cont patient on Eliquis given his elevated [id number] score Generalized deconditioning PT/OT assessment recommends SNF versus acute inpatient rehab. Inpatient rehab has denied. Patient reported lives at home alone -Case management to assist in placement in SNF -Replete B12 Leukocytosis, fevers resolved, I do not appreciate any focal signs of infection,blood cultures so far negative Urinalysis no signs of infection, chest x-ray clear without infiltrate *Chronic Medical Issues 1. Hypertension 2. Diabetes 3. Hyperlipidemia ? Continue his home medications Documented By: Mohsen Muniz MD 2 1249 Signed By: <Electronically signed by Mohsen Muniz MD> 01/05/22 1253 [facility] Work Phone: Summary Purpose Family History No Family History Records FoundNo Family History Records FoundNo Family History Records FoundNo Family History Records FoundNo Family History Records FoundNo Family History Records Found Advance Directives No Advanced Directives Records Found Advance Directive Response Recorded Date/ Time Advance Directives No March 8:11pm Advance Directive Response Recorded Date/ Time Advance Directives No January 6:57pm Chief Complaint and Reason for Visit Chief Complaint chest pain Reason for Visit Atrial fibrillation with rapid ventricular response Chest pain Essential hypertension Chief Complaint chest pain D50.9 E11.9 E78.5 Reason for Visit Atrial fibrillation with rapid ventricular response Chest pain Essential hypertension Additional Source Comments (unrecognized sect ion and content) No Status Records FoundNo Status Records FoundNo Status Records FoundNo Status Records FoundNo Status Records FoundNo Status Records Found INFORMATION SOURCE (unrecogn ized section and content) DATE CREATED AUTHOR 11/04/2020 [facility] DATE CREATED AUTHOR AUTHOR'S ORGANIZ ATION 10/08/2021 [facility] dical Specialist DATE CREATED AUTHOR AUTHOR'S ORGANIZ ATION 02/12/2022 [facility] DATE CREATED AUTHOR AUTHOR'S ORGANIZ ATION 06/16/2022 [facility] DATE CREATED AUTHOR AUTHOR'S ORGANIZ ATION 09/03/2022 [facility] DATE CREATED AUTHOR AUTHOR'S ORGANIZ ATION 03/31/2023 [facility] dical Specialists EPIC Care Teams (unrecognized sec tion and content) Team Status: Inactive Member Role Status Alexa Beckwith II MD Primary Care Provider Active Bouchra Duncan MD Emergency Provider Active Anabella Stone MD Admit Provider Active Tyra Andrade RN Other Provider Active Alan Doyle DO Other Provider Active Demetra Iraheta MD Other Provider Active Filipe Floyd MD Other Provider Active Antoinette Lucas MD Other Provider Active Brandon Mcgraw MD Other Provider Active Elizabeth Souza APRN Other Provider Active Claudia Isaacs MD Other Provider Active Cl Johnson MD Other Provider Active Lazara Mann MD Other Provider Active Mohsen Muniz MD Attending Provider Active Team Status: Active Member Role Status Alexa Beckwith II MD Primary Care Provider Active Team Status: Inactive Member Role Status Alexa Beckwith II MD Primary Care Provider Active Minh Kim MD Attending Provider Active FOR RECORDS PERTAINING TO PATIENTS WHO ARE OR HAVE BEEN ENROLLED IN A CHEMICAL DEPENDENCY/SUBSTANCEABUSE PROGRAM, SOME INFORMATION MAY BE OMITTED. This clinical summary was aggregated from multiple sources. Caution should be exercised in using it in the provision of clinical care. This summary normalizes information from multiple sources, and as a consequence, information in this document may materially change the coding, format and clinical context of patient data. In addition, data may be omitted in some cases. CLINICAL DECISIONS SHOULD BE BASED ON THE PRIMARY CLINICAL RECORDS. [employer] provides no warranty or guarantee of the accuracy or completeness of information in this document.
--- NOTE | 2023-06-25 16:49 | ECG_ITS ---
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
--- NOTE | 2023-06-25 16:49 | CT_ITS ---
[address] [address] Patient Name: ARTEMIO LEAVITT MRN: [id number] date: 1935 Sex: M Assigned Patient Location: ER Current Patient Location: ER Accession/Order Number: [id number] Exam Date: 06/25/2023 17:40 Report Date: 06/25/2023 18:19 At the request of: EWA MENDOZA Procedure: CT abdomen pelvis w con EXAM: CT abdomen pelvis w con HISTORY: GI bleed, nausea and vomiting COMPARISON: None. TECHNIQUE: Axial CT imaging was performed through the abdomen and pelvis with intravenous contrast. Multiplanar reformats were performed. Dose reduction techniques were achieved by using automated exposure control and/or adjustment of mA and/or kV according to patient size and/or use of iterative reconstruction technique. FINDINGS: The study is degraded due to motion artifact. Lung bases: There is a 1.4 cm right middle lobe pulmonary nodule. There are right lower lobe consolidation and right middle lobe groundglass attenuation, representing multifocal/aspiration pneumonia. GI upper: Dilated distal esophagus, containing air-fluid level, representing gastroesophageal reflux. There is a small hiatal hernia, containing cardia. Fluid-filled markedly distended stomach. There is herniation of pylorus and duodenal bulb through the diaphragm with downstream collapse of the duodenum and small bowel loops, representing gastric outlet obstruction (series 7, image 45). Liver: Normal size and contour. Gallbladder: No significant abnormality. No cholelithiasis. Biliary system: No intra or extrahepatic biliary ductal dilatation. Spleen: Normal size. Pancreas: Unremarkable. Adrenal glands: Normal adrenal glands. Kidneys/ureters: Normal contours. No hydronephrosis. No nephrolithiasis or ureterolithiasis. Vessels: No aneurysm. Lymph Nodes: No lymphadenopathy. Small bowel: No wall thickening or dilatation. Collapsed. Colon: No wall thickening or dilatation. Collapsed. Appendix: No findings of appendicitis. Peritoneal cavity: No free fluid or pneumoperitoneum. Lower : Unremarkable. Bones: No acute bony abnormality. Degenerative changes of the thoracic and lumbar spine. Multiple vertebroplasty and chronic vertebral compression fracture are noted. Soft tissues: No acute finding. Additional findings: None. CT/CT abdomen pelvis w con IMPRESSION: 1.4 cm right middle lobe pulmonary nodule. right lower lobe consolidation and right middle lobe groundglass attenuation, representing multifocal/aspiration pneumonia. Small hiatal hernia and evidence of gastroesophageal reflux. Evidence of gastric outlet obstruction due to hiatal hernia as described above. Electronically authenticated by: CATALINO GOODMAN Date: 06/25/2023 18:19
--- NOTE | 2023-06-25 16:57 | ED_ITS ---
HPI - General Adult General Chief complaint: Nausea/Vomiting/Diarrhea Stated complaint: Nausea/Vomiting/Diarrhea Time Seen by Provider: 06/25/23 16:46 Source: patient Mode of arrival: ambulance Limitations: no limitations History of Present Illness HPI narrative: Patient is an 88-year-old male with a history of A-fib, anticoagulated with Eliquis who presents to the emergency department By ambulance from the [facility] where he is a resident for evaluation of nausea and vomiting over the last 2 days and possible GI bleed. Patient denies any focal medical complaints, he has no abdominal pain, fevers, chills, dizziness, chest pain, shortness of breath. He answers all questions appropriately.He has no history of GI bleed that he is aware of. He denies urinary symptoms. correction staff sent the patient with a sample of emesis and stool. Related Data Home Medications Medication Instructions Recorded Confirmed apixaban 5 mg tablet (Eliquis) 5 mg PO QDAY 05/10/23 05/10/23 atorvastatin 40 mg tablet 40 mg PO .qhs 05/10/23 05/10/23 diltiazem HCl 180 mg 180 mg PO Q24H 05/10/23 05/10/23 capsule,extended release 24 hr ferrous sulfate 325 mg (65 mg 325 mg PO DAILY 05/10/23 05/10/23 iron) tablet metformin 750 mg tablet,extended 750 mg PO QDAY 05/10/23 05/10/23 release 24 hr metoprolol succinate 50 mg 50 mg PO QDAY 05/10/23 05/10/23 tablet,extended release 24 hr Previous Rx's Medication Instructions Recorded hydrocodone 5 mg-acetaminophen 325 1 tab PO Q6H PRN Pain Scale 7-10 5 05/12/23 mg tablet days #20 tabs Allergies Allergy/AdvReac Type Severity Reaction Status Date / Time No Known Drug Allergies Allergy Verified 05/10/23 16:23 Review of Systems ROS Constitutional Denies: fever or chills Ears, nose, mouth, and throat Denies: throat pain or nasal congestion Cardiovascular Denies: chest pain Respiratory Denies: shortness of breath or cough Gastrointestinal Reports: nausea and vomiting; Denies: abdominal pain or diarrhea Genitourinary Denies: painful urination Musculoskeletal Denies: back pain Integumentary/Breast Denies: rash Neurological Denies: headache Endocrine Denies: excessive urination Hematologic/Lymphatic Reports: easy bruising and easy bleeding PFSH PFS Medical History (Updated 06/25/23 @ 19:58 by MADISON Mejia) Paroxysmal atrial fibrillation ?I48.0 - Paroxysmal atrial fibrillation (ICD-10) Type 2 diabetes mellitus with hyperglycemia ?E11.65 - Type 2 diabetes mellitus with hyperglycemia (ICD-10) HTN (hypertension) ?I10 - Essential (primary) hypertension (ICD-10) Ankle sprain and strain ?S93.409A - Sprain of unspecified ligament of unspecified ankle, initial encounter (ICD-10) ?S96.919A - Strain of unspecified muscle and tendon at ankle and foot level, unspecified foot, initial encounter (ICD-10) High cholesterol ?E78.00 - Pure hypercholesterolemia, unspecified (ICD-10) Atrial fibrillation ?I48.91 - Unspecified atrial fibrillation (ICD-10) Diabetes 1.5, managed as type 2 ?E13.9 - Other specified diabetes mellitus without complications (ICD-10) Surgical History (Updated 05/10/23 @ 20:31 by Rukhsana Perez) Hernia ?K46.9 - Unspecified abdominal hernia without obstruction or gangrene (ICD- 10) History of tonsillectomy ?Z90.89 - Acquired absence of other organs (ICD-10) Back pain with history of spinal surgery ?M54.9 - Dorsalgia, unspecified (ICD-10) ?Z98.890 - Other specified postprocedural states (ICD-10) Social History Within the past year, how often did you have a drink containing alcohol: 4 or more times a week Within the past year, how many standard drinks containing alcohol did you have o n a typical day: 1 or 2 Total score: 0 Score interpretation: A score less than 4 is consistent with normal alcohol c onsumption. Smoking status: Never smoker Non-prescribed substance use: denies use Previous occupational history: retired Highest level of school completed/degree received: Bachelor's degree Are you now , , , , never or living with a partner: In a typical week, how many times do you talk on the telephone with family, friends, or neighbors: 3 or more times per week How often do you get together with friends or relatives: 3 or more times per week How often do you attend latter day or scientology services: never Do you belong to any clubs or organizations such as latter day groups unions, fraternal or athletic groups, or school groups: no Total score: 2 Score interpretation: A score of greater than or equal to 2 indicates the lowest level of social isolation. Little interest or pleasure in doing things: not at all Feeling down, depressed, or hopeless: not at all Feel stressed/tense/nervous/anxious/difficulty sleeping: not at all Do you think of yourself as: straight/heterosexual Gender Identity: male Exam Narrative Exam Narrative: Gen.: Awake, alert, in no distress Head: Normocephalic, atraumatic ENT: Moist mucous membranes Respiratory: No respiratory distress, lungs clear bilaterally Cardio: Tachycardia Gastrointestinal: Abdomen is soft, nondistended and nontender to palpation Extremities: Moves extremities equally, no injuries noted Psych: Normal mood and affect Neuro: No focal neuro deficit Skin: Warm, dry, intact; Pale Constitutional Vital Signs, click to edit/add: Last Vital Signs Temp 98.1 F 06/25/23 16:46 Pulse 120 H 06/25/23 20:20 Resp 26 H 06/25/23 20:20 BP 89/56 06/25/23 20:20 Pulse Ox 97 06/25/23 20:20 O2 Del Method Nasal Cannula 06/25/23 16:52 O2 Flow Rate 2 06/25/23 16:52 Course Vital Signs Vital signs: Vital Signs Temperature 98.1 F 06/25/23 16:46 Pulse Rate 132 H 06/25/23 16:46 Respiratory Rate 24 06/25/23 16:46 Blood Pressure 96/68 06/25/23 16:46 Pulse Oximetry 93 L 06/25/23 16:46 Oxygen Delivery Method Nasal Cannula 06/25/23 16:46 Oxygen Delivery Flow Rate 2 06/25/23 16:46 Temperature 98.1 F 06/25/23 16:46 Pulse Rate 120 H 06/25/23 20:20 Respiratory Rate 26 H 06/25/23 20:20 Blood Pressure 89/56 06/25/23 20:20 Pulse Oximetry 97 06/25/23 20:20 Oxygen Delivery Method Nasal Cannula 06/25/23 16:52 Oxygen Delivery Flow Rate 2 06/25/23 16:52 Medical Decision Making [facility] Narrative Medical decision making narrative: Arrival to the ER, patient was found to be tachycardic, mildly hypotensive and treated with IV fluids with improvement. He remained mildly tachycardic, repeat EKG shows atrial fibrillation with rapid ventricular response, artifact noted. Lab studies show normal troponin however elevated lactic acid and mild anemia with a hemoglobin of 11.2. Type and screen pending. Patient is Gastroccult positive, Hemoccult negative. He has leukocytosis and CT shows multifocal/aspiration pneumonia. Blood cultures were added. He was given IV Levaquin. CT also shows a large hiatal hernia with gastric outlet obstruction. I discussed this with general surgery in light of the GI bleed. Dr. Cline requested that the patient go to a tertiary care facility as an emergent endoscopy if the patient's clinical condition changes may be more complicated due to the gastric outlet obstruction. Family request transfer to [facility]. Discussed with RIVERA Delgadillo for hospitalist service who accepted the patient for Dr. Hester with Upper GI bleed with hiatal hernia and gastric outlet obstruction as well as aspiration pneumonia and Afib with RVR. Discussed with general surgery, Dr. Cortez (1950) Who will evaluate the patient when he is transferred. Patient received 10 mg IV Cardizem in addition to a Cardizem drip at 5 mL/h. His heart rate is slowing, blood pressure remained stable. Patient has no focal medical complaints. Critical care time 35 minutes. Medical Records Medical records reviewed: Yes I reviewed the patient's medical records Lab Data Lab results reviewed: Yes I reviewed the patient's lab results Labs: Lab Results 06/25/23 06/25/23 06/25/23 Range/Units 16:50 16:55 17:10 WBC 24.7 H (4.0-11.0) 10^3/uL RBC 3.76 L (4.70-6.10) 10^6/uL Hgb 11.7 L (14.0-18.0) g/dL Hct 36.2 L (42.0-54.0) % MCV 96.3 H (80.0-94.0) fL MCH 31.1 (25.9-34.0) pg MCHC 32.3 (29.9-35.2) g/dL RDW 13.0 (11.0-15.0) % Plt Count 454 H (150-450) 10^3/uL MPV 11.1 (9.5-13.5) fL Neut % (Auto) 91.0 H (43.0-75.0) % Lymph % (Auto) 2.9 L (20.5-60.0) % [place] % (Auto) 5.4 (1.7-12.0) % Eos % (Auto) 0.1 L (0.9-7.0) % Baso % (Auto) 0.1 L (0.2-2.0) % Neut # (Auto) 22.5 H (1.4-6.5) 10^3/uL Lymph # (Auto) 0.7 L (1.2-3.8) 10^3/uL [place] # (Auto) 1.3 H (0.3-0.8) 10^3/uL Eos # (Auto) 0.0 (0.0-0.7) 10^3/uL Baso # (Auto) 0.0 (0.0-0.1) 10^3/uL Abs Immat Gran (auto) 0.12 H (0.00-0.03) 10^3/uL Imm/Tot Granulo (auto) 0.5 (0.0-0.5) % PT 11.4 (9.0-11.6) sec INR 1.08 Sodium 146 H (136-145) mmol/L Potassium 3.8 (3.5-5.1) mmol/L Chloride 98 (98-107) mmol/L Carbon Dioxide 37.8 H (21.0-32.0) mmol/L Anion Gap 14.0 BUN 30.0 H (7.0-18.0) mg/dL Creatinine 1.11 (0.70-1.30) mg/dL Est GFR ( Amer) >60 (>=60) Est GFR (Non-Af Amer) >60 (>=60) BUN/Creatinine Ratio 27.0 Glucose 202 H (74-106) mg/dL Lactate 3.4 H* (0.4-2.0) mmol/L Calcium 9.4 (8.5-10.1) mg/dL Total Bilirubin 0.6 (0.2-1.0) mg/dL AST 17 (15-37) U/L ALT 15 L (16-63) U/L Alkaline Phosphatase 106 (46-116) U/L Troponin I High Sens 15.3 (4.0-76.1) pg/mL Total Protein 7.9 (6.4-8.2) g/dL Albumin 3.4 (3.4-5.0) g/dL Globulin 4.5 g/dL Albumin/Globulin Ratio 0.8 Gastric Fluid pH 3 Gastric Occult Blood Postive Stool Occult Blood Negative Stl C. cayetanensis PCR Not detected (NOT DETECTE) Stool Rotavirus (PCR) Not detected (NOT DETECTE) Stool Adenovirus (PCR) Not detected (NOT DETECTE) Stool Astrovirus (PCR) Not detected (NOT DETECTE) Stool Campylobacter PCR Not detected (NOT DETECTE) Stool Cryptosporidium PCR Not detected (NOT DETECTE) St Sh/Enteroin Ecoli PCR Not detected (NOT DETECTE) Stl Enterotoxigenic E PCR Not detected (NOT DETECTE) Stool EPEC (PCR) Not detected (NOT DETECTE) Stl E. histolytica PCR Not detected (NOT DETECTE) Stool Giardia Lamblia PCR Not detected (NOT DETECTE) Stl P. shigelloides PCR Not detected (NOT DETECTE) Stool Salmonella PCR Not detected (NOT DETECTE) Stool Sapovirus (PCR) Not detected (NOT DETECTE) Stl Shiga-like Tx 1 PCR Not detected (NOT DETECTE) St Y.enterocolitica PCR Not detected (NOT DETECTE) Stl Vibrio cholerae PCR Not detected (NOT DETECTE) Stl Enteroaggr Ecoli PCR Not detected (NOT DETECTE) Stl Norovirus GI/GII PCR Not detected (NOT DETECTE) C. difficile Toxin A&B Not detected (NOT DETECTE) Vibrio Culture Not detected (NOT DETECTE) Blood Type B Positive Antibody Screen Negative Imaging Data CT scan - abdomen: Attestation: I have reviewed the pertinent imaging results. Radiologist's impression: ITS Impressions Abdomen/Pelvis CT 06/25/23 16:49 IMPRESSION: 1.4 cm right middle lobe pulmonary nodule. right lower lobe consolidation and right middle lobe groundglass attenuation, representing multifocal/aspiration pneumonia. Small hiatal hernia and evidence of gastroesophageal reflux. Evidence of gastric outlet obstruction due to hiatal hernia as described above. Electronically authenticated by: CATALINO GOODMAN Date: 06/25/2023 18:19 ECG Data Attestation: I personally reviewed and interpreted this ECG as follows: (A-fib with RVR at a rate of 129, no acute ST elevation, minimal ST depression. No ectopy. EKG reviewed by attending physician) Critical Care Time Critical Care Time Critical Care Time: Yes Total Critical Care Time: 35 Attestation: 35 min of critical care time for sepsis evaluation, treatment of GI bleed and critical care cardiac medications with tertiary care transfer Discharge Plan Discharge Chief Complaint: Nausea/Vomiting/Diarrhea Clinical Impression: Aspiration pneumonia, Acute upper gastrointestinal bleeding, Nausea and vomiting, Atrial fibrillation with rapid ventricular response Patient Disposition: [facility] Time of Disposition Decision: 19:58 Discharge Location: [facility] Condition: Fair
[2023-06-25 17:07] LABS: Basophils Percent Auto 0.1 % (0.2-2.0); Eosinophils Percent Auto 0.1 % (0.9-7.0); Hematocrit 36.2 % (42.0-54.0); Hemoglobin 11.7 g/dL (14.0-18.0); Immature Granulocytes Abs Auto 0.12 10^3/uL (0.00-0.03); Immature Granulocytes Pct Auto 0.5 % (0.0-0.5); Lymphocytes Absolute Auto 0.7 10^3/uL (1.2-3.8); Lymphocytes Percent Auto 2.9 % (20.5-60.0); Mean Corpuscular HGB Conc 32.3 g/dL (29.9-35.2); Mean Corpuscular Hemoglobin 31.1 pg (25.9-34.0); Mean Corpuscular Volume 96.3 fL (80.0-94.0); Mean Platelet Volume 11.1 fL (9.5-13.5); Monocytes Absolute Auto 1.3 10^3/uL (0.3-0.8); Monocytes Percent Auto 5.4 % (1.7-12.0); Neutrophils Absolute Auto 22.5 10^3/uL (1.4-6.5); Platelet Count 454 10^3/uL (150-450); Red Blood Count 3.76 10^6/uL (4.70-6.10); White Blood Count 24.7 10^3/uL (4.0-11.0)
[2023-06-25] MEDS: 0.9 % SODIUM CHLORIDE 1,000 ML 999 ML IV (17:10)
[2023-06-25 17:14] LABS: Occult Blood Negative
[2023-06-25 17:15] LABS: Internal Control Within Normal Limits; Occult Blood Gastric Fluid POSTIVE; pH Gastric Fluid 3
[2023-06-25 17:23] LABS: Adenovirus F 40/41 NOT DETECTED (NOT DETECTE); Astrovirus NOT DETECTED (NOT DETECTE); Campylobacter NOT DETECTED (NOT DETECTE); Cryptosporidium NOT DETECTED (NOT DETECTE); Cyclospora cayetanensis NOT DETECTED (NOT DETECTE); Entamoeba histolytica NOT DETECTED (NOT DETECTE); Enteroaggregative E.coli NOT DETECTED (NOT DETECTE); Enteropathogenic E.coli NOT DETECTED (NOT DETECTE); Enterotoxigenic E. coli NOT DETECTED (NOT DETECTE); Giardia lamblia NOT DETECTED (NOT DETECTE); Norovirus GI/GII NOT DETECTED (NOT DETECTE); Plesiomonas shigelloides NOT DETECTED (NOT DETECTE); Rotavirus A NOT DETECTED (NOT DETECTE); Salmonella NOT DETECTED (NOT DETECTE); Sapovirus NOT DETECTED (NOT DETECTE); Shiga-like toxin-producing E.C NOT DETECTED (NOT DETECTE); Shigella/Enteroinvasive E.coli NOT DETECTED (NOT DETECTE); Vibrio NOT DETECTED (NOT DETECTE); Vibrio cholerae NOT DETECTED (NOT DETECTE); Yersinia enterocolitica NOT DETECTED (NOT DETECTE)
[2023-06-25] MEDS: PANTOPRAZOLE SODIUM 40 MG VIAL IV (17:23)
[2023-06-25] MEDS: ONDANSETRON PF 4 MG/2 ML VIAL IV (17:23)
[2023-06-25 17:24] LABS: INR 1.08; Prothrombin Time 11.4 sec (9.0-11.6)
[2023-06-25 17:26] LABS: Alanine Aminotransferase 15 U/L (16-63); Albumin Globulin Ratio 0.8; Albumin Level 3.4 g/dL (3.4-5.0); Alkaline Phosphatase 106 U/L (46-116); Aspartate Amino Transferase 17 U/L (15-37); Bilirubin Total 0.6 mg/dL (0.2-1.0); Calcium 9.4 mg/dL (8.5-10.1); Carbon Dioxide 37.8 mmol/L (21.0-32.0); Chloride 98 mmol/L (98-107); Estimated GFR (African America >60 (>=60); Estimated GFR (Non-African Ame >60 (>=60); Globulin 4.5 g/dL; Glucose 202 mg/dL (74-106); Potassium 3.8 mmol/L (3.5-5.1); Sodium 146 mmol/L (136-145); Total Protein 7.9 g/dL (6.4-8.2)
[2023-06-25 17:29] LABS: Troponin I High Sensitivity 15.3 pg/mL (4.0-76.1)
[2023-06-25 17:46] LABS: Lactate/Lactic Acid 3.4 mmol/L (0.4-2.0)
[2023-06-25] MEDS: LEVOFLOXACIN IN DEXTROSE 5 % 750 MG/150 ML IV.SOLN 100 MG IV (19:15)
[2023-06-25] MEDS: 0.9 % SODIUM CHLORIDE 1,000 ML 200 ML IV (19:19)
--- NOTE | 2023-06-25 19:23 | ECG_ITS ---
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
[2023-06-25] MEDS: DILTIAZEM HCL 25 MG/5 ML VIAL 10 MG IV (19:35)
[2023-06-25 20:54] LABS: Adenovirus NOT DETECTED (NOT DETECTE); Bordetella parapertussis NOT DETECTED (NOT DETECTE); Coronavirus 229E NOT DETECTED (NOT DETECTE); Coronavirus HKU1 NOT DETECTED (NOT DETECTE); Coronavirus NL63 NOT DETECTED (NOT DETECTE); Coronavirus OC43 NOT DETECTED (NOT DETECTE); Human Metapneumovirus NOT DETECTED (NOT DETECTE); Human Rhinovirus/Enterovirus NOT DETECTED (NOT DETECTE); Influenza A NOT DETECTED (NOT DETECTE); Influenza B NOT DETECTED (NOT DETECTE); Mycoplasma pneumoniae NOT DETECTED (NOT DETECTE); Parainfluenza Virus 1 NOT DETECTED (NOT DETECTE); Parainfluenza Virus 2 NOT DETECTED (NOT DETECTE); Parainfluenza Virus 3 NOT DETECTED (NOT DETECTE); Parainfluenza Virus 4 NOT DETECTED (NOT DETECTE); Respiratory Syncytial Virus NOT DETECTED (NOT DETECTE); SARS-CoV-2 NOT DETECTED (NOT DETECTE)
[2023-06-25 21:11] LABS: Lactate/Lactic Acid 2.1 mmol/L (0.4-2.0)
== END 2023-06-25 21:45 | disposition short-term general hospital (02) ==
PROVIDERS: Physician Assistant; Emergency Provider Emergency Medicine; Family Provider Internal Medicine; PCP Internal Medicine
DX: K92.2 Gastrointestinal hemorrhage, unspecified (principal); J69.0 Pneumonitis due to inhalation of food and vomit; R11.2 Nausea with vomiting, unspecified; I48.91 Unspecified atrial fibrillation; K44.0 Diaphragmatic hernia with obstruction, without gangrene; Z79.01 Long term (current) use of anticoagulants; Z79.84 Long term (current) use of oral hypoglycemic drugs; Z79.899 Other long term (current) drug therapy; E11.9 Type 2 diabetes mellitus without complications; I10 Essential (primary) hypertension; E78.00 Pure hypercholesterolemia, unspecified; Z90.89 Acquired absence of other organs; Z98.890 Other specified postprocedural states; Z20.822 Contact with and (suspected) exposure to COVID-19
CPT/HCPCS: 0202U; 36415; 74177; 80053; 82271; 83605; 84484; 85025; 85610; 86850; 86900; 86901; 87040; 87507; 93005; 96361; 96365; 96366; 96375; 99285; G0328; J2405; Q9967

== ENCOUNTER 2023-07-24 10:28 | Outpatient (OUT) | payer MEDICARE, SELFPAY ==
--- NOTE | 2023-07-24 | XR_ITS ---
The [address] [address] Patient Name: ARTEMIO LEAVITT MRN: [id number] date: 1935 Sex: M Assigned Patient Location: Current Patient Location: Accession/Order Number: [id number] Exam Date: 07/24/2023 10:45 Report Date: 07/25/2023 07:21 At the request of: BREEZY PRICE Procedure: XR tibia fibula LT 2V PROCEDURE: XR tibia fibula LT 2V COMPARISON: 05/29/2023 HISTORY: LEFT LOWER LEG PAIN FINDINGS: BONES:Stable healing oblique fracture of the distal fibular diaphysis with increased periosteal reaction bone formation. No additional fracture or dislocation. Permeative pattern of the foot consistent with osteopenia SOFT TISSUES:Negative. No visible soft tissue swelling. EFFUSION:None visible. OTHER: Negative. XR/XR tibia fibula LT 2V IMPRESSION: Stable healing distal fibular fracture Electronically authenticated by: ANDREAS BARGER Date: 07/25/2023 07:21
--- OUTSIDE RECORDS SUMMARY | 2023-07-24 10:36 | XMS_ITS | CCD ---
Author Name Unknown Address [address] [place] [address] Organization [facility] Care Team Providers Care Biological Inspector Name Role Phone REQUEST, NONE LISTED Consulting Unavaila ble REQUEST, NONE LISTED Admitting Unavaila ble REQUEST, NONE LISTED Attending Unavaila ble REQUEST, NONE LISTED Consulting Unavaila ble REQUEST, NONE LISTED Admitting Unavaila ble REQUEST, NONE LISTED Attending Unavaila ble BECKWITH, DR PÉREZ Attending Unavailable BECKWITH, DR PÉREZ Consulting Unavailable BECKWITH, DR PÉREZ Admitting Unavailable WEST, DR ANDREAS Azul Consulting Unavailable REQUEST, NONE LISTED Consulting Unavaila ble REQUEST, NONE LISTED Admitting Unavaila ble REQUEST, NONE LISTED Attending Unavaila ble Beckwith, MODESTO Pérez Primary Care Provider [phone] MD Bouchra Hugo Emergency Provider MD Anabella Hayes Admit Provider HILLARY Andrade Other Provider Unavailable DO Alan Doyle Other Provider [phone] MD Demetra Downey Other Provider MD Filipe Floyd Other Provider MD Antoinette Lucas Other Provider [phone] MD Brandon Mcgraw Other Provider EMILEE Talbot Other Provider MD Claudia Isaacs Other Provider MD Cl Johnson Other Provider MD Lazara Mann Other Provider MD Mohsen Muniz Attending Provider Dr. Minh Kim Unavailable Unavailable MD Minh Kim Attending Provider [phone] Minh Kim Attending Unavailable Minh Kim Admitting Unavailable Minh Kim Attending Unavailable Beto Beckwith Primary Care Unavailable Minh Kim Admitting Unavailable Minh Kim Attending Unavailable Beto Beckwith Primary Care Unavailable Al Anatoly Stoen, Udayi Admitting Unavailab Mohsen Larkin Attending Unavailab Beto Sutton Primary Care Unavailable Tyra Andrade Consulting Unavailable Alan Doyle Consulting Unavailable Demetra Downey Consulting Unavailable Filipe Floyd Consulting Unavail able Antoinette Lucas Consulting Unavailable Brandon Mcgraw Consulting Unavailab Elizabeth Riley Consulting Unavailable Claudia Isaacs Consulting Unavailable Cl Johnson Consulting Unavailab Lazara Babcock Consulting Unavailable Demetra Downey Attending Unavailable Filipe Doyle Attending Unavailable Demetra Downey Attending Unavailable Demetra Downey Attending Unavailable BETO BECKWITH Attending Unavailable WILL PECK Referring Unavailable NICOLE LEBLANC Consulting Unavail able BETO BECKWITH Primary Care Unavailable KATHRINE GONZALEZ Attending Unavailable KATHRINE GONZALEZ Admitting Unavailable LUZ JUAN Consulting Unavailable ANAT ULRICH Consulting Unavailable DEVAN CASTELLANOS Consulting Unavailable RACHAEL JONES Consulting Unavailable JOYCE NGUYEN Consulting Unavailable ERNESTO GARCIA Consulting UnavailBRANDY Silva Consulting Unavailable Medications Current Medications Medication Drug Class(es) [...] Discontinued 1 TAB PO Three times daily 02 08April 05, 2021 January 01, 2022 12:04am apixaban [...] Active 5 MG PO Twice daily 60 January 03, 2022 12:00am Start: 01-03-2022 take 1 tablet by dior th twice daily Apixaban (Eliquis) 5 mg Tablet Active 5 MG PO Twice daily 60 January 03, 2022 12:00am atorvastatin 40 mg [...] 05, 2021 1:00am January 06, 2022 12:50pm [employer] / Mauritanian balsam (1 source) Standardized Chemical Allergen Start: [...] Every morning 0 January 06, 2022 12:00am Start: 01-06-2022 take 1000 ug by mout h once daily in the morning Cyanocobalamin (Vitamin B-12) Active 1000 MCG PO Every morning 0 January 06, 2022 12:00am Problems Active Problems Problem Classification Problem Date Documented Date Episodic/Chronic Abdominal hernia (1 source) Diaphragmatic hernia with obstruction, without gangrene; Translations: [Diaphragmatic hernia with obstruction, without gangrene] Onset: 06-26-2023 Episodic Cardiac dysrhythmias (10 sources) Atrial fibrillation with rapid ventricular response; [...] breast; Translations: [Mastodynia] Onset: 10-16-2020 Episodic Other disorders of stomach and duodenum (1 source) Adult hypertrophic pyloric stenosis; Translations: [Adult hypertrophic pyloric stenosis] Onset: 06-26-2023 Episodic Other nervous system disorders (1 source) [...] Test Name Value Interpretation Reference Range Facility Glucose,Whole Bloodon 2023 Glucose [Mass/Vol] 189 mg/dL High 75-[address] [facility] Glucose [Mass/Vol] 115 mg/dL High 75-[address] [facility] Calcium, Ionicon 07-04-2023 Calcium [Moles/Vol] 1.03 mmol/L Low 1.13-1.33 [facility] Comment on above: Performed By: #### R EJEC, LYTE, B12FOL, MG #### [facility] [address] [place] [address] Spare Hand: Giovani Stafford MD Glucose,Whole Bloodon 2023 Glucose [Mass/Vol] 192 mg/dL High 75-[address] [facility] Glucose [Mass/Vol] 195 mg/dL High 75-[address] [facility] Glucose [Mass/Vol] 162 mg/dL High 75-[address] [facility] Glucose [Mass/Vol] 113 mg/dL High -[address] [facility] Basic Metab w/rfx MGon 07-03 Anion gap [Moles/Vol] 7 mmol/L Low 9-17 [facility] Comment on above: Performed By: #### C DP, BMPX, MG, SUYAPA #### [facility] [address] [place] [address] Spare Hand: Giovani Stafford MD Calcium [Mass/Vol] 7.6 mg/dL Low 8.6-10.[address] [facility] Comment on above: Performed By: #### C DP, BMPX, MG, SUYAPA #### [facility] [address] [place] [address] [phone] Spare Hand: Giovani Stafford MD Chloride [Moles/Vol] 95 mmol/L Low 98-107 [facility] Comment on above: Performed By: #### C DP, BMPX, MG, SUYAPA #### [facility] [address] [place] [address] Spare Hand: Giovani Stafford MD CO2 [Moles/Vol] 28 mmol/L Normal 20-[address] [facility] Comment on above: Performed By: #### C DP, BMPX, MG, SUYAPA #### [facility] [address] [place] [phone] Spare Hand: Giovani Stafford MD Creatinine [Mass/Vol] 0.3 mg/dL Low 0.7-1.2 [facility] Comment on above: Performed By: #### C DP, BMPX, MG, SUYAPA #### [address] [address] Spare Hand: Giovani Stafford MD GFR/1.73 sq M.predicted among non-blacks MDRD (S/P/Bld) [Vol rate/Area] mL/min/{1.73_m2} Normal >[address] [facility] Comment on above: Result Comment: These results are not intended for use in patients <18 years of age. eGFR results are calculated without a race factor using the 2020 CKD-EPI equation. Careful clinical correlation is recommended, particularly when comparing to results calculated using previous equations. The CKD-EPI equation is less accurate in patients with extremes of muscle mass, extra-renal metabolism of creatine, excessive creatine ingestion, or following therapy that affects renal tubular secretion. Performed By: #### C DP, BMPX, MG, SUYAPA #### [facility] [address] [place] [phone] Spare Hand: Giovani Stafford MD Glucose [Mass/Vol] 111 mg/dL High 70-[address] [facility] Comment on above: Performed By: #### C DP, BMPX, MG, SUYAPA #### [facility] [address] [place] [address] Spare Hand: Giovani Stafford MD Potassium [Moles/Vol] 3.7 mmol/L Normal 3.7-5.3 [facility] Comment on above: Performed By: #### C DP, BMPX, MG, SUYAPA #### [facility] [address] [place] [address] Spare Hand: Giovani Stafford MD Sodium [Moles/Vol] 130 mmol/L Low 135-[address] [facility] Comment on above: Performed By: #### C DP, BMPX, MG, SUYAPA #### [facility] [address] [place] [address] Spare Hand: Giovani Stafford MD Urea nitrogen [Mass/Vol] 5 mg/dL Low 8-[address] [facility] Comment on above: Performed By: #### C DP, BMPX, MG, SUYAPA #### [place] [address] Spare Hand: Giovani Stafford MD CBC with Diffon 07-03-2023 Abs. Basophil 0.04 k/uL Normal 0.00-0.[address] [facility] Comment on above: Performed By: #### C DP, BMPX, MG, SUYAPA #### [facility] [address] [place] [address] Spare Hand: Giovani Stafford MD Abs.Imm.Granulocyte 0.41 k/uL High 0.00-0.[address] [facility] Comment on above: Performed By: #### C DP, BMPX, MG, SUYAPA #### [facility] [address] [place] [address] Spare Hand: Giovani Stafford MD Abs.Neutrophil (Seg) 8.03 k/uL Normal 1.50-8.10 [facility] Comment on above: Performed By: #### C DP, BMPX, MG, SUYAPA #### [facility] [address] [place] [address] Spare Hand: Giovani Stafford MD Basophils/100 WBC (Bld) 0 % Normal 0-2 [facility] Comment on above: Performed By: #### C DP, BMPX, MG, SUYAPA #### [place] [address] Spare Hand: Giovani Stafford MD Eosinophils (Bld) [#/Vol] 0.51 10*3/uL High 0.00-0.[address] [facility] Comment on above: Performed By: #### C DP, BMPX, MG, SUYAPA #### [address] [address] Spare Hand: Giovani Stafford MD Eosinophils/100 WBC (Bld) 5 % High 1-[address] [facility] Comment on above: Performed By: #### C DP, BMPX, MG, SUYAPA #### [place] [address] Spare Hand: Giovani Stafford MD Erythrocyte distribution width (RBC) [Ratio] 13.1 % Normal 11.8-14.[address] [facility] Comment on above: Performed By: #### C DP, BMPX, MG, SUYAPA #### [place] [address] Spare Hand: Giovani Stafford MD Hematocrit (Bld) [Volume fraction] 30.1 % Low 40.7-50.[address] [facility] Comment on above: Performed By: #### C DP, BMPX, MG, SUYAPA #### [facility] [address] [place] [address] Spare Hand: Giovani Stafford MD Hemoglobin (Bld) [Mass/Vol] 9.8 g/dL Low 13.0-17.[address] [facility] Comment on above: Performed By: #### C DP, BMPX, MG, SUYAPA #### [facility] [address] [place] [address] Spare Hand: Giovani Stafford MD Immature granulocytes/100 WBC (Bld) 4 % High [address] [facility] Comment on above: Performed By: #### C DP, BMPX, MG, SUYAPA #### [address] [address] Spare Hand: Giovani Stafford MD Lymphocytes (Bld) [#/Vol] 0.79 10*3/uL Low 1.10-3.[address] [facility] Comment on above: Performed By: #### C DP, BMPX, MG, SUYAPA #### [address] [address] Spare Hand: Giovani Stafford MD Lymphocytes/100 WBC (Bld) 7 % Low 24-[address] [facility] Comment on above: Performed By: #### C DP, BMPX, MG, SUYAPA #### [address] [address] Spare Hand: Giovani Stafford MD MCH (RBC) [Entitic mass] 31.4 pg Normal 25.2-33.[address] [facility] Comment on above: Performed By: #### C DP, BMPX, MG, SUYAPA #### [address] [address] Spare Hand: Giovani Stafford MD MCHC (RBC) [Mass/Vol] 32.6 g/dL Normal 28.4-34.8 [facility] Comment on above: Performed By: #### C DP, BMPX, MG, SUYAPA #### [address] [address] Spare Hand: Giovani Stafford MD MCV (RBC) [Entitic vol] 96.5 fL Normal 82.6-102.9 [facility] Comment on above: Performed By: #### C DP, BMPX, MG, SUYAPA #### [address] [address] Spare Hand: Giovani Stafford MD Monocytes (Bld) [#/Vol] 1.08 10*3/uL Normal 0.10-1.[address] [facility] Comment on above: Performed By: #### C DP, BMPX, MG, SUYAPA #### [address] [address] Spare Hand: Giovani Stafford MD Monocytes/100 WBC (Bld) 10 % Normal 3-12 [facility] Comment on above: Performed By: #### C DP, BMPX, MG, SUYAPA #### [address] [address] Spare Hand: Giovani Stafford MD Neutrophil (Seg) 74 % High 36-65 [facility] Comment on above: Performed By: #### C DP, BMPX, MG, SUYAPA #### [address] [address] Spare Hand: Giovani Stafford MD NRBC Automated 0.0 per [address] WBC Normal 0[address] [facility] Comment on above: Performed By: #### C DP, BMPX, MG, SUYAPA #### [address] [address] Spare Hand: Giovani Stafford MD Platelet mean volume (Bld) [Entitic vol] 11.0 fL Normal 8.1-13.[address] [facility] Comment on above: Performed By: #### C DP, BMPX, MG, SUYAPA #### [address] [address] Spare Hand: Giovani Stafford MD Platelets (Bld) [#/Vol] 303 10*3/uL Normal 138-[address] [facility] Comment on above: Performed By: #### C DP, BMPX, MG, SUYAPA #### [address] [address] Spare Hand: Giovani Stafford MD RBC (Bld) [#/Vol] 3.12 10*6/uL Low 4.21-5.[address] [facility] Comment on above: Performed By: #### C DP, BMPX, MG, SUYAPA #### [facility] [address] [place] [address] [phone] Spare Hand: Giovani Stafford MD WBC (Bld) [#/Vol] 10.9 10*3/uL Normal 3.5-11.[address] [facility] Comment on above: Performed By: #### C DP, BMPX, MG, SUYAPA #### [facility] [address] [place] [address] [phone] Spare Hand: Giovani Stafford MD Glucose,Whole Bloodon 2023 Glucose [Mass/Vol] 186 mg/dL High -[address] [facility] Glucose [Mass/Vol] 125 mg/dL High -[address] [facility] Glucose [Mass/Vol] 203 mg/dL High 75-[address] [facility] Glucose [Mass/Vol] 107 mg/dL Normal -[address] [facility] Glucose,Whole Bloodon 2023 Glucose [Mass/Vol] 146 mg/dL High -[address] [facility] Glucose [Mass/Vol] 214 mg/dL High -[address] [facility] Glucose [Mass/Vol] 153 mg/dL High -[address] [facility] Glucose [Mass/Vol] 122 mg/dL High -[address] [facility] Basic Metab w/rfx MGon 07-01 Anion gap [Moles/Vol] 9 mmol/L Normal 9-17 [facility] Comment on above: Performed By: #### R EJEC, LYTE, B12FOL, MG #### [facility] [address] [place] [address] [phone] Spare Hand: Giovani Stafford MD Calcium [Mass/Vol] 7.5 mg/dL Low 8.6-10.[address] [facility] Comment on above: Performed By: #### R EJEC, LYTE, B12FOL, MG #### [facility] [address] [place] [address] Spare Hand: Giovani Stafford MD Chloride [Moles/Vol] 95 mmol/L Low 98-107 [facility] Comment on above: Performed By: #### R EJEC LYTE, B12FOL, MG #### [facility] [place] [address] Spare Hand: Giovani Stafford MD CO2 [Moles/Vol] 30 mmol/L Normal 20-[address] [facility] Comment on above: Performed By: #### R EJEC LYTE, B12FOL, MG #### [facility] [address] [place] [address] Spare Hand: Giovani Stafford MD Creatinine [Mass/Vol] 0.3 mg/dL Low 0.7-1.2 [facility] Comment on above: Performed By: #### R EJEC LYTE, B12FOL, MG #### [facility] [address] [place] [phone] Spare Hand: Giovani Stafford MD GFR/1.73 sq M.predicted among non-blacks MDRD (S/P/Bld) [Vol rate/Area] mL/min/{1.73_m2} Normal >[address] [facility] Comment on above: Result Comment: These results are not intended for use in patients <18 years of age. eGFR results are calculated without a race factor using the 2020 CKD-EPI equation. Careful clinical correlation is recommended, particularly when comparing to results calculated using previous equations. The CKD-EPI equation is less accurate in patients with extremes of muscle mass, extra-renal metabolism of creatine, excessive creatine ingestion, or following therapy that affects renal tubular secretion. Performed By: #### R EJEC, LYTE, B12FOL, MG #### [facility] [address] [place] [address] [phone] Spare Hand: Giovani Stafford MD Glucose [Mass/Vol] 138 mg/dL High 70-[address] [facility] Comment on above: Performed By: #### R PINA BATEMANTE, B12FOL, MG #### [facility] [address] [place] [phone] Spare Hand: Giovani Stafford MD Potassium [Moles/Vol] 4.1 mmol/L Normal 3.7-5.3 [facility] Comment on above: Performed By: #### R EJKYRA, LYTE, B12FOL, MG #### [facility] [address] [place] [phone] Spare Hand: Giovani Stafford MD Sodium [Moles/Vol] 134 mmol/L Low 135-[address] [facility] Comment on above: Performed By: #### R PINA BATEMANTE, B12FOL, MG #### [facility] [address] [place] [address] Spare Hand: Giovani Stafford MD Urea nitrogen [Mass/Vol] 5 mg/dL Low 8-[address] [facility] Comment on above: Performed By: #### R BHAVANA LYTE, B12FOL, MG #### [facility] [address] [place] [phone] Spare Hand: Giovani Stafford MD CBC with Diffon 07-01-2023 Abs. Basophil 0.04 k/uL Normal 0.00-0.[address] [facility] Comment on above: Performed By: #### R EJKYRA, LYTE, B12FOL, MG #### [facility] [address] [place] [address] Spare Hand: Giovani Stafford MD Abs.Imm.Granulocyte 0.37 k/uL High 0.00-0.[address] [facility] Comment on above: Performed By: #### R BHAVANA LYTE, B12FOL, MG #### [facility] [address] [place] [address] Spare Hand: Giovani Stafford MD Abs.Neutrophil (Seg) 9.97 k/uL High 1.50-8.10 [facility] Comment on above: Performed By: #### R EJEC, LYTE, B12FOL, MG #### [facility] [address] [place] [address] Spare Hand: Giovani Stafford MD Basophils/100 WBC (Bld) 0 % Normal 0-2 [facility] Comment on above: Performed By: #### R EJEC, LYTE, B12FOL, MG #### [place] [address] Spare Hand: Giovani Stafford MD Eosinophils (Bld) [#/Vol] 0.50 10*3/uL High 0.00-0.[address] [facility] Comment on above: Performed By: #### R EJEC, LYTE, B12FOL, MG #### [facility] [address] [place] [address] Spare Hand: Giovani Stafford MD Eosinophils/100 WBC (Bld) 4 % Normal 1-[address] [facility] Comment on above: Performed By: #### R EJEC, LYTE, B12FOL, MG #### [place] [address] Spare Hand: Giovani Stafford MD Erythrocyte distribution width (RBC) [Ratio] 12.8 % Normal 11.8-14.[address] [facility] Comment on above: Performed By: #### R EJEC, LYTE, B12FOL, MG #### [facility] [address] [place] [address] Spare Hand: Giovani Stafford MD Hematocrit (Bld) [Volume fraction] 29.0 % Low 40.7-50.[address] [facility] Comment on above: Performed By: #### R EJEC, LYTE, B12FOL, MG #### [address] [address] Spare Hand: Giovani Stafford MD Hemoglobin (Bld) [Mass/Vol] 9.4 g/dL Low 13.0-17.[address] [facility] Comment on above: Performed By: #### R EJEC, LYTE, B12FOL, MG #### [address] [address] Spare Hand: Giovani Stafford MD Immature granulocytes/100 WBC (Bld) 3 % High [address] [facility] Comment on above: Performed By: #### R EJEC, LYTE, B12FOL, MG #### [address] [address] Spare Hand: Giovani Stafford MD Lymphocytes (Bld) [#/Vol] 0.82 10*3/uL Low 1.10-3.[address] [facility] Comment on above: Performed By: #### R EJEC, LYTE, B12FOL, MG #### [address] [address] Spare Hand: Giovani Stafford MD Lymphocytes/100 WBC (Bld) 6 % Low 24-[address] [facility] Comment on above: Performed By: #### R EJEC, LYTE, B12FOL, MG #### [address] [address] Spare Hand: Giovani Stafford MD MCH (RBC) [Entitic mass] 30.8 pg Normal 25.2-33.[address] [facility] Comment on above: Performed By: #### R EJEC, LYTE, B12FOL, MG #### [address] [address] Spare Hand: Giovani Stafford MD MCHC (RBC) [Mass/Vol] 32.4 g/dL Normal 28.4-34.8 [facility] Comment on above: Performed By: #### R EJKYRA LYTE, B12FOL, MG #### [address] [address] Spare Hand: Giovani Stafford MD MCV (RBC) [Entitic vol] 95.1 fL Normal 82.6-102.9 [facility] Comment on above: Performed By: #### R EJKYRA LYTE, B12FOL, MG #### [address] [address] Spare Hand: Giovani Stafford MD Monocytes (Bld) [#/Vol] 1.16 10*3/uL Normal 0.10-1.[address] [facility] Comment on above: Performed By: #### R EJKYRA LYTE, B12FOL, MG #### [address] [address] Spare Hand: Giovani Stafford MD Monocytes/100 WBC (Bld) 9 % Normal 3-12 [facility] Comment on above: Performed By: #### R BHAVANA LYTE, B12FOL, MG #### [address] [address] Spare Hand: Giovani Stafford MD Neutrophil (Seg) 78 % High 36-65 [facility] Comment on above: Performed By: #### R EJEC LYTE, B12FOL, MG #### [address] [address] Spare Hand: Giovani Stafford MD NRBC Automated 0.0 per 100 WBC Normal 0[address] [facility] Comment on above: Performed By: #### R EJEC, LYTE, B12FOL, MG #### [address] [address] Spare Hand: Giovani Stafford MD Platelet mean volume (Bld) [Entitic vol] 10.6 fL Normal 8.1-13.[address] [facility] Comment on above: Performed By: #### R EJEC, LYTE, B12FOL, MG #### [facility] [address] [place] [address] Spare Hand: Giovani Stafford MD Platelets (Bld) [#/Vol] 289 10*3/uL Normal 138-[address] [facility] Comment on above: Performed By: #### R EJEC, LYTE, B12FOL, MG #### [facility] [address] [place] [address] Spare Hand: Giovani Stafford MD RBC (Bld) [#/Vol] 3.05 10*6/uL Low 4.21-5.[address] [facility] Comment on above: Performed By: #### R EJEC, LYTE, B12FOL, MG #### [facility] [address] [place] [phone] Spare Hand: Giovani Stafford MD WBC (Bld) [#/Vol] 12.9 10*3/uL High 3.5-11.[address] [facility] Comment on above: Performed By: #### R EJEC, LYTE, B12FOL, MG #### [facility] [address] [place] [phone] Spare Hand: Giovani Stafford MD Cult,Bloodon 07-01-2023 Cult,Blood Specimen Description .BLOOD Special Requests L FOREARM 6ML Culture NO GROWTH 5 DAYS Report Status FINAL 07/01/[address] [facility] Comment on above: Performed By: #### C DP, BMPX, MG, SUYAPA #### [facility] [address] [place] [phone] Spare Hand: Giovani Stafford MD Cult,Blood Specimen Description .BLOOD Special Requests R FOREARM 2ML Culture NO GROWTH 5 DAYS Report Status FINAL 07/01/[address] [facility] Comment on above: Performed By: #### R EJEC, LYTE, B12FOL, MG #### [facility] [address] [place] [phone] Spare Hand: Giovani Stafford MD Glucose,Whole Bloodon 2023 Glucose [Mass/Vol] 151 mg/dL High 75-[address] [facility] Glucose [Mass/Vol] 182 mg/dL High 75-[address] [facility] Glucose [Mass/Vol] 208 mg/dL High 75-[address] [facility] Glucose [Mass/Vol] 126 mg/dL High 75-[address] [facility] Basic Metab w/rfx MGon 06-30 Potassium [Moles/Vol] 2.9 mmol/L Critically low 3.7-5.[address] [facility] Comment on above: Performed By: #### R EJEC, LYTE, B12FOL, MG #### [facility] [address] [place] [phone] Spare Hand: Giovani Stafford MD Anion gap [Moles/Vol] 8 mmol/L Low 9-17 [facility] Comment on above: Performed By: #### R EJEC, LYTE, B12FOL, MG #### [facility] [address] [place] [address] Spare Hand: Giovani Stafford MD Calcium [Mass/Vol] 7.6 mg/dL Low 8.6-10.[address] [facility] Comment on above: Performed By: #### R EJEC, LYTE, B12FOL, MG #### [facility] [address] [place] [address] Spare Hand: Giovani Stafford MD Chloride [Moles/Vol] 95 mmol/L Low 98-107 [facility] Comment on above: Performed By: #### R EJEC, LYTE, B12FOL, MG #### [facility] [address] [place] [address] [phone] Spare Hand: Giovani Stafford MD CO2 [Moles/Vol] 31 mmol/L Normal 20-[address] [facility] Comment on above: Performed By: #### R EJEC LYTE, B12FOL, MG #### [facility] [address] [place] [address] [phone] Spare Hand: Giovani Stafford MD Creatinine [Mass/Vol] 0.3 mg/dL Low 0.7-1.2 [facility] Comment on above: Performed By: #### R EJEC, LYTE, B12FOL, MG #### [address] [address] Spare Hand: Giovani Stafford MD GFR/1.73 sq M.predicted among non-blacks MDRD (S/P/Bld) [Vol rate/Area] mL/min/{1.73_m2} Normal >[address] [facility] Comment on above: Result Comment: These results are not intended for use in patients <18 years of age. eGFR results are calculated without a race factor using the 2020 CKD-EPI equation. Careful clinical correlation is recommended, particularly when comparing to results calculated using previous equations. The CKD-EPI equation is less accurate in patients with extremes of muscle mass, extra-renal metabolism of creatine, excessive creatine ingestion, or following therapy that affects renal tubular secretion. Performed By: #### R EJEC, LYTE, B12FOL, MG #### [facility] [employer] [address] [place] [address] [phone] Spare Hand: Giovani Stafford MD Glucose [Mass/Vol] 125 mg/dL High 70-[address] [facility] Comment on above: Performed By: #### R EJEC, LYTE, B12FOL, MG #### [facility] [employer] [address] [place] [address] [phone] Spare Hand: Giovani Stafford MD Sodium [Moles/Vol] 134 mmol/L Low 135-[address] [facility] Comment on above: Performed By: #### R EJEC LYTE, B12FOL, MG #### [facility] [employer] [address] [place] [address] [place] [address] Spare Hand: Giovani Stafford MD Urea nitrogen [Mass/Vol] 10 mg/dL Normal - [facility] Comment on above: Performed By: #### R EJEC, LYTE, B12FOL, MG #### [address] [address] Spare Hand: Giovani Stafford MD CBC with Diffon 06-30-2023 Abs. Basophil 0.00 k/uL Normal 0.0-0.[address] [facility] Comment on above: Performed By: #### R EJKYRA LYTE, B12FOL, MG #### [facility] [employer] [address] [place] [phone] Spare Hand: Giovani Stafford MD Abs.Imm.Granulocyte 0.00 k/uL Normal 0.00-0.[address] [facility] Comment on above: Performed By: #### R BHAVANA LYTE, B12FOL, MG #### [facility] [employer] [address] [place] [address] Spare Hand: Giovani Stafford MD Abs.Neutrophil (Seg) 11.57 k/uL High 1.8-7.7 [facility] Comment on above: Performed By: #### R BHAVANA, LYTE, B12FOL, MG #### [facility] [employer] [address] [place] [phone] Spare Hand: Giovani Stafford MD Basophils/100 WBC (Bld) 0 % Normal 0-2 [facility] Comment on above: Performed By: #### R EJPINA RAETE, B12FOL, MG #### [facility] [employer] [address] [place] [address] Spare Hand: Giovani Stafford MD Eosinophils (Bld) [#/Vol] 0.00 10*3/uL Normal 0.0-0.[address] [facility] Comment on above: Performed By: #### R PINA BATEMANTE, B12FOL, MG #### [facility] [address] [place] [phone] Spare Hand: Giovani Stafford MD Eosinophils/100 WBC (Bld) 0 % Low 1-[address] [facility] Comment on above: Performed By: #### R EJEC, LYTE, B12FOL, MG #### [address] [address] Spare Hand: Giovani Stafford MD Immature granulocytes/100 WBC (Bld) 0 % Normal [address] [facility] Comment on above: Performed By: #### R EJEC, LYTE, B12FOL, MG #### [address] [address] Spare Hand: Giovani Stafford MD Lymphocytes (Bld) [#/Vol] 0.52 10*3/uL Low 1.0-4.[address] [facility] Comment on above: Performed By: #### R EJEC, LYTE, B12FOL, MG #### [address] [address] Spare Hand: Giovani Stafford MD Lymphocytes/100 WBC (Bld) 4 % Low 24-[address] [facility] Comment on above: Performed By: #### R EJEC, LYTE, B12FOL, MG #### [address] [address] Spare Hand: Giovani Stafford MD Monocytes (Bld) [#/Vol] 0.91 10*3/uL High 0.1-0.[address] [facility] Comment on above: Performed By: #### R EJEC, LYTE, B12FOL, MG #### [address] [address] Spare Hand: Giovani Stafford MD Monocytes/100 WBC (Bld) 7 % Normal 1-7 [facility] Comment on above: Performed By: #### R EJEC, LYTE, B12FOL, MG #### [address] [address] Spare Hand: Giovani Stafford MD Morphology Ambrose (Bld) [Interp] Normal Normal [facility] Comment on above: Performed By: #### R EJEC, LYTE, B12FOL, MG #### [address] [address] Spare Hand: Giovani Stafford MD Neutrophil (Seg) 89 % High 36-66 [facility] Comment on above: Performed By: #### R EJEC, LYTE, B12FOL, MG #### [address] [address] Spare Hand: Giovani Stafford MD Erythrocyte distribution width (RBC) [Ratio] 13.0 % Normal 11.8-14.[address] [facility] Comment on above: Performed By: #### R EJEC, LYTE, B12FOL, MG #### [address] [address] Spare Hand: Giovani Stafford MD Hematocrit (Bld) [Volume fraction] 29.6 % Low 40.7-50.[address] [facility] Comment on above: Performed By: #### R EJEC, LYTE, B12FOL, MG #### [address] [address] Spare Hand: Giovani Stafford MD Hemoglobin (Bld) [Mass/Vol] 9.6 g/dL Low 13.0-17.[address] [facility] Comment on above: Performed By: #### R EJEC, LYTE, B12FOL, MG #### [address] [address] Spare Hand: Giovani Stafford MD MCH (RBC) [Entitic mass] 31.5 pg Normal 25.2-33.[address] [facility] Comment on above: Performed By: #### R EJEC, LYTE, B12FOL, MG #### [address] [address] Spare Hand: Giovani Stafford MD MCHC (RBC) [Mass/Vol] 32.4 g/dL Normal 28.4-34.8 [facility] Comment on above: Performed By: #### R EJEC, LYTE, B12FOL, MG #### [address] [address] Spare Hand: Giovani Stafford MD MCV (RBC) [Entitic vol] 97.0 fL Normal 82.6-102.9 [facility] Comment on above: Performed By: #### R EJKYRA, LYTE, B12FOL, MG #### [address] [address] Spare Hand: Giovani Stafford MD NRBC Automated 0.0 per 100 WBC Normal 0.[address] [facility] Comment on above: Performed By: #### R EJEC, LYTE, B12FOL, MG #### [address] [address] Spare Hand: Giovani Stafford MD Platelet mean volume (Bld) [Entitic vol] 11.0 fL Normal 8.1-13.[address] [facility] Comment on above: Performed By: #### R EJEC, LYTE, B12FOL, MG #### [address] [address] Spare Hand: Giovani Stafford MD Platelets (Bld) [#/Vol] 265 10*3/uL Normal 138-[address] [facility] Comment on above: Performed By: #### R EJEC, LYTE, B12FOL, MG #### [address] [address] Spare Hand: Giovani Stafford MD RBC (Bld) [#/Vol] 3.05 10*6/uL Low 4.21-5.[address] [facility] Comment on above: Performed By: #### ALVA SANTANA B12FOL, MG #### [facility] [address] [place], [place] [phone] Spare Hand: Giovani Stafford MD WBC (Bld) [#/Vol] 13.0 10*3/uL High 3.5-11.[address] [facility] Comment on above: Performed By: #### R ALVA BATEMAN B12FOL, MG #### [facility] [address] [place] [address] Spare Hand: Giovani Stafford MD Glucose,Whole Bloodon 2023 Glucose [Mass/Vol] 163 mg/dL High 75-[address] [facility] Glucose [Mass/Vol] 155 mg/dL High 75-[address] [facility] Glucose [Mass/Vol] 189 mg/dL High 75-[address] [facility] Glucose [Mass/Vol] 128 mg/dL High -[address] [facility] Magnesiumon 06-30-2023 Magnesium [Mass/Vol] 1.5 mg/dL Low 1.6-2.6 [facility] Comment on above: Performed By: #### ALVA SANTANA B12FOL, MG #### [facility] [employer] [address] [place], [place] [phone] Spare Hand: Giovani Stafford MD Procalcitoninon 06-30-2023 Procalcitonin 0.11 ng/mL High <0.[address] [facility] Comment on above: Result Comment: Suspected Sepsis: <0.50 ng/mL Low likelihood of sepsis. 0.50-2.00 ng/mL Increased likelihood of sepsis. Antibiotics encouraged. >2.00 ng/mL High risk of sepsis/shock. Antibiotics strongly encouraged. Suspected Lower Resp Tract Infections: <0.24 ng/mL Low likelihood of bacterial infection. >0.24 ng/mL Increased likelihood of bacterial infection. Antibiotics encouraged. With successful antibiotic therapy, PCT levels should decrease rapidly. (Half-life of 24 to 36 hours.) Procalcitonin values from samples collected within the first 6 hours of systemic infection may still be low. Retesting may be indicated. Values from day 1 and day 4 can be entered into the Change in Procalcitonin Calculator ([email or web address]) to determine the patient's Mortality Risk Prognosis In healthy neonates, plasma Procalcitonin (PCT) concentrations increase gradually after , reaching peak values at about 24 hours of age then decrease to normal values below 0.5 ng/mL by 48-72 hours of age. Performed By: #### R ALVA BATEMAN B12FOL, MG #### [employer] [address] [place] [address] [phone] Spare Hand: Giovnai Stafford MD Basic Metab w/rfx MGon 06-29 Potassium [Moles/Vol] 3.3 mmol/L Low 3.7-5.3 [facility] Comment on above: Performed By: #### ALVA SANTANA B12FOL, MG #### [employer] [address] [place] [address] Spare Hand: Giovani Stafford MD Anion gap [Moles/Vol] 10 mmol/L Normal 9-17 [facility] Comment on above: Performed By: #### R PINA BATEMANTE B12FOL, MG #### [employer] [address] [place] [address] Spare Hand: Giovani Stafford MD Calcium [Mass/Vol] 7.9 mg/dL Low 8.6-10.[address] [facility] Comment on above: Performed By: #### R ALVA BATEMAN B12FOL, MG #### [employer] [address] [place] [address] [phone] Spare Hand: Giovani Stafford MD Chloride [Moles/Vol] 99 mmol/L Normal 98-107 [facility] Comment on above: Performed By: #### R EJEC, LYTE, B12FOL, MG #### [facility] [address] [place] [address] Spare Hand: Giovani Stafford MD CO2 [Moles/Vol] 30 mmol/L Normal 20-[address] [facility] Comment on above: Performed By: #### R EJEC, LYTE, B12FOL, MG #### [facility] [address] [place] [address] Spare Hand: Giovani Stafford MD Creatinine [Mass/Vol] 0.4 mg/dL Low 0.7-1.2 [facility] Comment on above: Performed By: #### R EJEC, LYTE, B12FOL, MG #### [address] [address] Spare Hand: Giovani Stafford MD GFR/1.73 sq M.predicted among non-blacks MDRD (S/P/Bld) [Vol rate/Area] mL/min/{1.73_m2} Normal >[address] [facility] Comment on above: Result Comment: These results are not intended for use in patients <18 years of age. eGFR results are calculated without a race factor using the 2020 CKD-EPI equation. Careful clinical correlation is recommended, particularly when comparing to results calculated using previous equations. The CKD-EPI equation is less accurate in patients with extremes of muscle mass, extra-renal metabolism of creatine, excessive creatine ingestion, or following therapy that affects renal tubular secretion. Performed By: #### R EJEC, LYTE, B12FOL, MG #### [facility] [address] [place] [phone] Spare Hand: Giovani Stafford MD Glucose [Mass/Vol] 84 mg/dL Normal 70-[address] [facility] Comment on above: Performed By: #### R EJEC, LYTE, B12FOL, MG #### [facility] [employer] [address] [place] [address] Spare Hand: Giovani Stafford MD Sodium [Moles/Vol] 139 mmol/L Normal 135-[address] [facility] Comment on above: Performed By: #### R ALVA BATEMAN B12FOL, MG #### [address] [address] Spare Hand: Giovani Stafford MD Urea nitrogen [Mass/Vol] 18 mg/dL Normal 8-[address] [facility] Comment on above: Performed By: #### R EJKYRA, LYTE, B12FOL, MG #### [address] [address] Spare Hand: Giovani Stafford MD CBC with Diffon 06-29-2023 Abs. Basophil 0.00 k/uL Normal 0.00-0.[address] [facility] Comment on above: Performed By: #### R PINA BATEMANTE, B12FOL, MG #### [address] [address] Spare Hand: Giovani Stafford MD Abs.Imm.Granulocyte 0.13 k/uL Normal 0.00-0.[address] [facility] Comment on above: Performed By: #### R PINA BATEMANTE, B12FOL, MG #### [address] [address] Spare Hand: Giovani Stafford MD Abs.Neutrophil (Seg) 10.74 k/uL High 1.50-8.10 [facility] Comment on above: Performed By: #### R BHAVANA LYTE, B12FOL, MG #### [address] [address] Spare Hand: Giovani Stafford MD Basophils/100 WBC (Bld) 0 % Normal 0-2 [facility] Comment on above: Performed By: #### R PINA BATEMANTE, B12FOL, MG #### [address] [address] Spare Hand: Giovani Stafford MD Eosinophils (Bld) [#/Vol] 0.00 10*3/uL Normal 0.00-0.[address] [facility] Comment on above: Performed By: #### R EJEC, LYTE, B12FOL, MG #### [address] [address] Spare Hand: Giovani Stafford MD Eosinophils/100 WBC (Bld) 0 % Low 1-[address] [facility] Comment on above: Performed By: #### R EJEC, LYTE, B12FOL, MG #### [address] [address] Spare Hand: Giovani Stafford MD Immature granulocytes/100 WBC (Bld) 1 % High [address] [facility] Comment on above: Performed By: #### R EJEC, LYTE, B12FOL, MG #### [place] [address] Spare Hand: Giovani Stafford MD Lymphocytes (Bld) [#/Vol] 0.63 10*3/uL Low 1.10-3.[address] [facility] Comment on above: Performed By: #### R EJEC, LYTE, B12FOL, MG #### [address] [address] Spare Hand: Giovani Stafford MD Lymphocytes/100 WBC (Bld) 5 % Low 24-[address] [facility] Comment on above: Performed By: #### R EJEC, LYTE, B12FOL, MG #### [address] [address] Spare Hand: Giovani Stafford MD Monocytes (Bld) [#/Vol] 1.00 10*3/uL Normal 0.10-1.[address] [facility] Comment on above: Performed By: #### R EJEC, LYTE, B12FOL, MG #### [address] [address] Spare Hand: Giovani Stafford MD Monocytes/100 WBC (Bld) 8 % Normal 3-12 [facility] Comment on above: Performed By: #### R EJEC, LYTE, B12FOL, MG #### [address] [address] Spare Hand: Giovani Stafford MD Morphology Ambrose (Bld) [Interp] Normal Normal [facility] Comment on above: Performed By: #### R EJEC LYTE, B12FOL, MG #### [address] [address] Spare Hand: Giovani Stafford MD Neutrophil (Seg) 86 % High 36-65 [facility] Comment on above: Performed By: #### R EJEC, LYTE, B12FOL, MG #### [address] [address] Spare Hand: Giovani Stafford MD Erythrocyte distribution width (RBC) [Ratio] 13.2 % Normal 11.8-14.[address] [facility] Comment on above: Performed By: #### R BHAVANA LYTE, B12FOL, MG #### [address] [address] Spare Hand: Giovani Stafford MD Hematocrit (Bld) [Volume fraction] 29.7 % Low 40.7-50.[address] [facility] Comment on above: Performed By: #### R EJEC LYTE, B12FOL, MG #### [address] [address] Spare Hand: Giovani Stafford MD Hemoglobin (Bld) [Mass/Vol] 9.6 g/dL Low 13.0-17.[address] [facility] Comment on above: Performed By: #### R EJEC, LYTE, B12FOL, MG #### [address] [address] Spare Hand: Giovani Stafford MD MCH (RBC) [Entitic mass] 31.3 pg Normal 25.2-33.[address] [facility] Comment on above: Performed By: #### R PINA BATEMANTE, B12FOL, MG #### [address] [address] Spare Hand: Giovani Stafford MD MCHC (RBC) [Mass/Vol] 32.3 g/dL Normal 28.4-34.8 [facility] Comment on above: Performed By: #### R EJKYRA, LYTE, B12FOL, MG #### [address] [address] Spare Hand: Giovani Stafford MD MCV (RBC) [Entitic vol] 96.7 fL Normal 82.6-102.9 [facility] Comment on above: Performed By: #### R BHAVANA LYTE, B12FOL, MG #### [address] [address] Spare Hand: Giovani Stafford MD NRBC Automated 0.0 per 100 WBC Normal 0.[address] [facility] Comment on above: Performed By: #### R BHAVANA LYTE, B12FOL, MG #### [address] [address] Spare Hand: Giovani Stafford MD Platelet mean volume (Bld) [Entitic vol] 10.9 fL Normal 8.1-13.[address] [facility] Comment on above: Performed By: #### R EJEC, LYTE, B12FOL, MG #### [address] [address] Spare Hand: Giovani Stafford MD Platelets (Bld) [#/Vol] 263 10*3/uL Normal 138-[address] [facility] Comment on above: Performed By: #### R EJEC, LYTE, B12FOL, MG #### [employer] [address] [place] [address] Spare Hand: Giovani Stafford MD RBC (Bld) [#/Vol] 3.07 10*6/uL Low 4.21-5.[address] [facility] Comment on above: Performed By: #### R EJEC, LYTE, B12FOL, MG #### [facility] [address] [place] [address] Spare Hand: Giovani Stafford MD WBC (Bld) [#/Vol] 12.5 10*3/uL High 3.5-11.[address] [facility] Comment on above: Performed By: #### R EJEC, LYTE, B12FOL, MG #### [employer] [address] [place] [address] Spare Hand: Giovani Stafford MD FL MODIFIED BARIUM SWALLOW W VIDEOon 06-29-2023 FL MODIFIED BARIUM SWALLOW W VIDEO EXAMINATION: MODIFIED BARIUM SWALLOW WAS PERFORMED IN CONJUNCTION WITH SPEECH PATHOLOGY SERVICES TECHNIQUE: Under fluoroscopic evaluation cineradiography/vide oradiography recordings were performed in conjunction with the speech-language pathologist (FACTORY MAINTENANCE MANAGER). Various liquid, solid and/or semi-solid barium preparations were used to assess swallowing function. FLUOROSCOPY DOSE AND TYPE: Radiation Exposure Index: Kerma mGy, COMPARISON: None HISTORY: ORDERING SYSTEM PROVIDED HISTORY: Aspiration TECHNOLOGIST PROVIDED HISTORY: Aspiration Reason for Exam: aspiration FINDINGS: Patient was given thick and thin liquid and thick liquid by straw. No laryngeal penetration or aspiration. Mild stasis in the vallecula and piriform sinuses. Also given puree and soft solid which showed no laryngeal penetration or aspiration. Cookie not tested. IMPRESSION: Swallowing mechanism grossly within normal limits without evidence of aspiration. Please see separate speech pathology report for full discussion of findings and recommendations. Interpreted by: Beto Canales MD Signed by: Beto Canales MD 06/29/[address] [facility] Glucose,Whole Bloodon 02-22- 2024 Glucose [Mass/Vol] 231 mg/dL High 75-[address] [facility] Glucose [Mass/Vol] 72 mg/dL Low 75-[address] [facility] Glucose [Mass/Vol] 87 mg/dL Normal 75-[address] [facility] Glucose [Mass/Vol] 76 mg/dL Normal 75-[address] [facility] Hgb/Hcton 06-29-2023 Hematocrit (Bld) [Volume fraction] 29.8 % Low 40.7-50.[address] [facility] Comment on above: Performed By: #### R EJEC, LYTE, B12FOL, MG #### [facility] [address] [place] [address] [phone] Spare Hand: Giovani Stafford MD Hemoglobin (Bld) [Mass/Vol] 9.8 g/dL Low 13.0-17.[address] [facility] Comment on above: Performed By: #### R EJEC, LYTE, B12FOL, MG #### [facility] [address] [place] [address] [phone] Spare Hand: Giovani Stafford MD Magnesiumon 06-29-2023 Magnesium [Mass/Vol] 1.4 mg/dL Low 1.6-2.6 [facility] Comment on above: Performed By: #### R EJEC, LYTE, B12FOL, MG #### [facility] [address] [place] [address] [phone] Spare Hand: Giovani Stafford MD Basic Metab w/rfx MGon 06-28 Anion gap [Moles/Vol] 9 mmol/L Normal 9-17 [facility] Comment on above: Performed By: #### C DP, BMPX, MG, SUYAPA #### [facility] [address] [place] [address] [phone] Spare Hand: Giovani Stafford MD Calcium [Mass/Vol] 8.3 mg/dL Low 8.6-10.[address] [facility] Comment on above: Performed By: #### C DP, BMPX, MG, SUYAPA #### [facility] [address] [place] [phone] Spare Hand: Giovani Stafford MD Chloride [Moles/Vol] 101 mmol/L Normal 98-107 [facility] Comment on above: Performed By: #### C DP, BMPX, MG, SUYAPA #### [facility] [address] [place] [address] Spare Hand: Giovani Stafford MD CO2 [Moles/Vol] 26 mmol/L Normal 20-[address] [facility] Comment on above: Performed By: #### C DP, BMPX, MG, SUYAPA #### [address] [address] Spare Hand: Giovani Stafford MD Creatinine [Mass/Vol] 0.5 mg/dL Low 0.7-1.2 [facility] Comment on above: Performed By: #### C DP, BMPX, MG, SUYAPA #### [address] [address] Spare Hand: Giovani Stafford MD GFR/1.73 sq M.predicted among non-blacks MDRD (S/P/Bld) [Vol rate/Area] mL/min/{1.73_m2} Normal >[address] [facility] Comment on above: Result Comment: These results are not intended for use in patients <18 years of age. eGFR results are calculated without a race factor using the 2020 CKD-EPI equation. Careful clinical correlation is recommended, particularly when comparing to results calculated using previous equations. The CKD-EPI equation is less accurate in patients with extremes of muscle mass, extra-renal metabolism of creatine, excessive creatine ingestion, or following therapy that affects renal tubular secretion. Performed By: #### C DP, BMPX, MG, SUYAPA #### [address] [phone] Spare Hand: Giovani Stafford MD Glucose [Mass/Vol] 103 mg/dL High 70-[address] [facility] Comment on above: Performed By: #### C DP, BMPX, MG, SUYAPA #### [facility] [address] [place] [phone] Spare Hand: Giovani Stafford MD Potassium [Moles/Vol] 4.3 mmol/L Normal 3.7-5.3 [facility] Comment on above: Result Comment: SPEC IMEN MODERATELY HEMOLYZED, RESULTS MAY BE ADVERSELY AFFECTED Performed By: #### C DP, BMPX, MG, SUYAPA #### [facility] [address] [place] [address] Spare Hand: Giovani Stafford MD Sodium [Moles/Vol] 136 mmol/L Normal 135-[address] [facility] Comment on above: Performed By: #### C DP, BMPX, MG, SUYAPA #### [facility] [address] [place] [address] Spare Hand: Giovani Stafford MD Urea nitrogen [Mass/Vol] 22 mg/dL Normal 8-[address] [facility] Comment on above: Performed By: #### C DP, BMPX, MG, SUYAPA #### [facility] [address] [place] [phone] Spare Hand: Giovani Stafford MD CBC with Diffon 06-28-2023 Abs. Basophil <0.03 Normal 0.00-0.[address] [facility] Comment on above: Performed By: #### C DP, BMPX, MG, SUYAPA #### [facility] [address] [place] [address] Spare Hand: Giovani Stafford MD Abs. Eosinophil <0.03 Normal 0.00-0.[address] [facility] Comment on above: Performed By: #### C DP, BMPX, MG, SUYAPA #### [facility] [employer] [address] [place] [address] Spare Hand: Giovani Stafford MD Abs.Imm.Granulocyte 0.11 k/uL Normal 0.00-0.[address] [facility] Comment on above: Performed By: #### C DP, BMPX, MG, SUYAPA #### [address] [address] Spare Hand: Giovani Stafford MD Abs.Neutrophil (Seg) 9.05 k/uL High 1.50-8.10 [facility] Comment on above: Performed By: #### C DP, BMPX, MG, SUYAPA #### [facility] [employer] [address] [place] [phone] Spare Hand: Giovani Stafford MD Basophils/100 WBC (Bld) 0 % Normal 0-2 [facility] Comment on above: Performed By: #### C DP, BMPX, MG, SUYAPA #### [address] [address] Spare Hand: Giovani Stafford MD Eosinophils/100 WBC (Bld) 0 % Low 1-[address] [facility] Comment on above: Performed By: #### C DP, BMPX, MG, SUYAPA #### [facility] [employer] [address] [place] [phone] Spare Hand: Giovani Stafford MD Erythrocyte distribution width (RBC) [Ratio] 13.5 % Normal 11.8-14.[address] [facility] Comment on above: Performed By: #### C DP, BMPX, MG, SUYAPA #### [facility] [address] [place] [phone] Spare Hand: Giovani Stafford MD Hematocrit (Bld) [Volume fraction] 30.6 % Low 40.7-50.[address] [facility] Comment on above: Performed By: #### C DP, BMPX, MG, SUYAPA #### [facility] [address] [place] [address] Spare Hand: Giovani Stafford MD Hemoglobin (Bld) [Mass/Vol] 10.4 g/dL Low 13.0-17.[address] [facility] Comment on above: Performed By: #### C DP, BMPX, MG, SUYAPA #### [facility] [address] [place] [phone] Spare Hand: Giovani Stafford MD Immature granulocytes/100 WBC (Bld) 1 % High [address] [facility] Comment on above: Performed By: #### C DP, BMPX, MG, SUYAPA #### [facility] [address] [place] [phone] Spare Hand: Giovani Stafford MD Lymphocytes (Bld) [#/Vol] 0.93 10*3/uL Low 1.10-3.[address] [facility] Comment on above: Performed By: #### C DP, BMPX, MG, SUYAPA #### [place] [address] Spare Hand: Giovani Stafford MD Lymphocytes/100 WBC (Bld) 8 % Low 24-[address] [facility] Comment on above: Performed By: #### C DP, BMPX, MG, SUYAPA #### [facility] [employer] [address] [place] [address] Spare Hand: Giovani Stafford MD MCH (RBC) [Entitic mass] 32.1 pg Normal 25.2-33.[address] [facility] Comment on above: Performed By: #### C DP, BMPX, MG, SUYAPA #### [facility] [employer] [address] [place] [phone] Spare Hand: Giovani Stafford MD MCHC (RBC) [Mass/Vol] 34.0 g/dL Normal 28.4-34.8 [facility] Comment on above: Performed By: #### C DP, BMPX, MG, SUYAPA #### [facility] [address] [place] [address] Spare Hand: Giovani Stafford MD MCV (RBC) [Entitic vol] 94.4 fL Normal 82.6-102.9 [facility] Comment on above: Performed By: #### C DP, BMPX, MG, SUYAPA #### [address] [address] Spare Hand: Giovani Stafford MD Monocytes (Bld) [#/Vol] 1.09 10*3/uL Normal 0.10-1.[address] [facility] Comment on above: Performed By: #### C DP, BMPX, MG, SUYAPA #### [address] [address] Spare Hand: Giovani Stafford MD Monocytes/100 WBC (Bld) 10 % Normal 3-12 [facility] Comment on above: Performed By: #### C DP, BMPX, MG, SUYAPA #### [address] [address] Spare Hand: Giovani Stafford MD Neutrophil (Seg) 81 % High 36-65 [facility] Comment on above: Performed By: #### C DP, BMPX, MG, SUYAPA #### [address] [address] Spare Hand: Giovani Stafford MD NRBC Automated 0.0 per 100 WBC Normal 0[address] [facility] Comment on above: Performed By: #### C DP, BMPX, MG, SUYAPA #### [address] [address] Spare Hand: Giovani Stafford MD Platelet mean volume (Bld) [Entitic vol] 11.8 fL Normal 8.1-13.[address] [facility] Comment on above: Performed By: #### C DP, BMPX, MG, SUYAPA #### [facility] [employer] [address] [place] [address] Spare Hand: Giovani Stafford MD Platelets (Bld) [#/Vol] 239 10*3/uL Normal 138-[address] [facility] Comment on above: Performed By: #### C DP, BMPX, MG, SUYAPA #### [employer] [address] [place] [address] Spare Hand: Giovani Stafford MD RBC (Bld) [#/Vol] 3.24 10*6/uL Low 4.21-5.[address] [facility] Comment on above: Performed By: #### C DP, BMPX, MG, SUYAPA #### [employer] [facility] [place] [address] Spare Hand: Giovani Stafford MD WBC (Bld) [#/Vol] 11.2 10*3/uL Normal 3.5-11.[address] [facility] Comment on above: Performed By: #### C DP, BMPX, MG, SUYAPA #### [facility] [address] [place] [address] Spare Hand: Giovani Stafford MD Glucose,Whole Bloodon 2023 Glucose [Mass/Vol] 95 mg/dL Normal 75-[address] [facility] Glucose [Mass/Vol] 96 mg/dL Normal 75-[address] [facility] Glucose [Mass/Vol] 103 mg/dL Normal 75-[address] [facility] Glucose [Mass/Vol] 120 mg/dL High 75-[address] [facility] Hgb/Hcton 06-28-2023 Hematocrit (Bld) [Volume fraction] 31.7 % Low 40.7-50.[address] [facility] Comment on above: Performed By: #### C DP, BMPX, MG, SUYAPA #### [employer] [address] [place], [place] [phone] Spare Hand: Giovani Stafford MD Hemoglobin (Bld) [Mass/Vol] 10.0 g/dL Low 13.0-17.[address] [facility] Comment on above: Performed By: #### C DP, BMPX, MG, SUYAPA #### [facility] [address] [place] [address] Spare Hand: Giovani Stafford MD Hematocrit (Bld) [Volume fraction] 32.4 % Low 40.7-50.[address] [facility] Comment on above: Performed By: #### R EJEC, LYTE, B12FOL, MG #### [facility] [address] [place] [address] Spare Hand: Giovani Stafford MD Hemoglobin (Bld) [Mass/Vol] 10.0 g/dL Low 13.0-17.[address] [facility] Comment on above: Performed By: #### R EJEC, LYTE, B12FOL, MG #### [facility] [address] [place] [address] Spare Hand: Giovani Stafford MD Hematocrit (Bld) [Volume fraction] 31.6 % Low 40.7-50.[address] [facility] Comment on above: Performed By: #### H H ####[facility] [address] [place], [place] [address])[phone] Director: Giovani Stafford MD Hemoglobin (Bld) [Mass/Vol] 10.2 g/dL Low 13.0-17.[address] [facility] Comment on above: Performed By: #### H H ####[facility] [address] [place] [address])[phone] Director: Giovani Stafford MD Magnesiumon 06-28-2023 Magnesium [Mass/Vol] 2.1 mg/dL Normal 1.6-2.6 [facility] Comment on above: Performed By: #### C DP, BMPX, MG, SUYAPA #### [facility] [address] [place] [address] Spare Hand: Giovani Stafford MD Phosphorus, Inorg.on 024 Phosphorus, Inorg. 2.4 mg/dL Low 2.5-4.[address] [facility] Comment on above: Performed By: #### C DP, BMPX, MG, SUYAPA #### [address] [phone] Spare Hand: Giovani Stafford MD XR CHEST PORTABLEon 06-28-19 XR CHEST PORTABLE EXAMINATION: ONE XRAY VIEW OF THE CHEST 06/26/2023 11:32 pm COMPARISON: None. HISTORY: ORDERING SYSTEM PROVIDED HISTORY: post op hiatal hernia repair TECHNOLOGIST PROVIDED HISTORY: post op hiatal hernia repair FINDINGS: No lines or tubes. Normal cardiomediastinal silhouette. The lungs show low volumes with chronic-appearing reticular opacities. Emphysematous changes are present. No pneumothorax. No pulmonary edema. No new osseous abnormality. IMPRESSION: 1. Low lung volumes with basilar atelectasis. 2. Chronic changes including COPD. Interpreted by: Phyllis Nixon MD Signed by: Phyllis Nixon MD 06/28/[address] result Normal [facility] Basic Metab w/rfx MGon 06-27 Anion gap [Moles/Vol] 7 mmol/L Low 9-17 [facility] Comment on above: Performed By: #### R EJEC, LYTE, B12FOL, MG #### [facility] [employer] [address] [place] [address] Spare Hand: Giovani Stafford MD Calcium [Mass/Vol] 8.3 mg/dL Low 8.6-10.[address] [facility] Comment on above: Performed By: #### R EJEC, LYTE, B12FOL, MG #### [facility] [employer] [address] [place] [address] Spare Hand: Giovani Stafford MD Chloride [Moles/Vol] 103 mmol/L Normal 98-107 [facility] Comment on above: Performed By: #### R EJEC, LYTE, B12FOL, MG #### [facility] [employer] [address] [place] [address] Spare Hand: Giovani Stafford MD CO2 [Moles/Vol] 26 mmol/L Normal 20-[address] [facility] Comment on above: Performed By: #### R ALVA BATEMAN B12FOL, MG #### [address] [phone] Spare Hand: Giovani Stafford MD Creatinine [Mass/Vol] 0.4 mg/dL Low 0.7-1.2 [facility] Comment on above: Performed By: #### R PINA BATEMANTE B12FOL, MG #### [address] [phone] Spare Hand: Giovani Stafford MD GFR/1.73 sq M.predicted among non-blacks MDRD (S/P/Bld) [Vol rate/Area] mL/min/{1.73_m2} Normal >[address] [facility] Comment on above: Result Comment: These results are not intended for use in patients <18 years of age. eGFR results are calculated without a race factor using the 2020 CKD-EPI equation. Careful clinical correlation is recommended, particularly when comparing to results calculated using previous equations. The CKD-EPI equation is less accurate in patients with extremes of muscle mass, extra-renal metabolism of creatine, excessive creatine ingestion, or following therapy that affects renal tubular secretion. Performed By: #### R ALVA BATEMAN B12FOL, MG #### [address] [address] Spare Hand: Giovani Stafford MD Glucose [Mass/Vol] 200 mg/dL High 70-[address] [facility] Comment on above: Performed By: #### R ALVA BATEMAN B12FOL, MG #### [address] [phone] Spare Hand: Giovani Stafford MD Potassium [Moles/Vol] 4.1 mmol/L Normal 3.7-5.3 [facility] Comment on above: Performed By: #### R EJEC, LYTE, B12FOL, MG #### [facility] [address] [place] [address] Spare Hand: Giovani Stafford MD Sodium [Moles/Vol] 136 mmol/L Normal 135-[address] [facility] Comment on above: Performed By: #### R EJKYRA, LYTE, B12FOL, MG #### [facility] [address] [place] [address] Spare Hand: Giovani Stafford MD Urea nitrogen [Mass/Vol] 29 mg/dL High 8-[address] [facility] Comment on above: Performed By: #### R EJKYRA, LYTE, B12FOL, MG #### [facility] [employer] [address] [place] [address] Spare Hand: Giovani Stafford MD Anion gap [Moles/Vol] 7 mmol/L Low 9-17 [facility] Comment on above: Performed By: #### M G, BMPX, CDP, SUYAPA, LACTIC, IOCAL, REJEC ####[facility] [address] [place] [address] Lab Director: Giovani Stafford MD Calcium [Mass/Vol] 8.4 mg/dL Low 8.6-10.[address] [facility] Comment on above: Performed By: #### M G, BMPX, CDP, SUYAPA, LACTIC, IOCAL, REJEC ####[facility] [address] [place] [address] Lab Director: Giovani Stafford MD Chloride [Moles/Vol] 103 mmol/L Normal 98-107 [facility] Comment on above: Performed By: #### M G, BMPX, CDP, SUYAPA, LACTIC, IOCAL, REJEC ####[facility] [address] [place], [place] [phone] Director: Giovani Stafford MD CO2 [Moles/Vol] 25 mmol/L Normal 20-[address] [facility] Comment on above: Performed By: #### M G, BMPX, CDP, SUYAPA, LACTIC, IOCAL, REJEC ####[facility] [address] [place], [place] 7102008 Lab Director: Giovani Stafford MD Creatinine [Mass/Vol] 0.5 mg/dL Low 0.7-1.2 [facility] Comment on above: Performed By: #### M G, BMPX, CDP, SUYAPA, LACTIC, IOCAL, REJEC ####[facility] [address] [place], [place] [phone] Lab Director: Giovani Stafford MD GFR/1.73 sq M.predicted among non-blacks MDRD (S/P/Bld) [Vol rate/Area] mL/min/{1.73_m2} Normal >[address] [facility] Comment on above: Result Comment: These results are not intended for use in patients <18 years of age. eGFR results are calculated without a race factor using the 2020 CKD-EPI equation. Careful clinical correlation is recommended, particularly when comparing to results calculated using previous equations. The CKD-EPI equation is less accurate in patients with extremes of muscle mass, extra-renal metabolism of creatine, excessive creatine ingestion, or following therapy that affects renal tubular secretion. Performed By: #### M G, BMPX, CDP, SUYAPA, LACTIC, IOCAL, REJEC ####[facility] [address] [place] [address] Lab Director: Giovani Stafford MD Glucose [Mass/Vol] 199 mg/dL High 70-[address] [facility] Comment on above: Performed By: #### M G, BMPX, CDP, SUYAPA, LACTIC, IOCAL, REJEC ####[facility] [address] [place], [place] [phone] Lab Director: Giovani Stafford MD Potassium [Moles/Vol] 4.0 mmol/L Normal 3.7-5.3 [facility] Comment on above: Performed By: #### M G, BMPX, CDP, SUYAPA, LACTIC, IOCAL, REJEC ####[facility] [address] [place], [place] [address])[phone] Director: Giovani Stafford MD Sodium [Moles/Vol] 135 mmol/L Normal 135-[address] [facility] Comment on above: Performed By: #### M G, BMPX, CDP, SUYAPA, LACTIC, IOCAL, REJEC ####[place] [place] [place], [place] [address])[phone] Director: Giovani Stafford MD Urea nitrogen [Mass/Vol] 33 mg/dL High 8-[address] [facility] Comment on above: Performed By: #### M G, BMPX, CDP, SUYAPA, LACTIC, IOCAL, REJEC ####[address] [address])[phone] Director: Giovani Stafford MD CBC with Diffon 06-27-2023 Abs. Basophil 0.00 k/uL Normal 0.0-0.[address] [facility] Comment on above: Performed By: #### ALVA SANTANA B12FOL, MG #### [address] [address] Spare Hand: Giovani Stafford MD Abs.Imm.Granulocyte 0.00 k/uL Normal 0.00-0.[address] [facility] Comment on above: Performed By: #### ALVA SANTANA B12FOL, MG #### [facility] [employer] [address] [place] [address] Spare Hand: Giovani Stafford MD Abs.Neutrophil (Seg) 7.36 k/uL Normal 1.8-7.7 [facility] Comment on above: Performed By: #### R ALVA BATEMAN B12FOL, MG #### [facility] [employer] [address] [place] [address] Spare Hand: Giovani Stafford MD Basophils/100 WBC (Bld) 0 % Normal 0-2 [facility] Comment on above: Performed By: #### R EJEC, LYTE, B12FOL, MG #### [address] [address] Spare Hand: Giovani Stafford MD Eosinophils (Bld) [#/Vol] 0.00 10*3/uL Normal 0.0-0.[address] [facility] Comment on above: Performed By: #### R EJEC, LYTE, B12FOL, MG #### [address] [address] Spare Hand: Giovani Stafford MD Eosinophils/100 WBC (Bld) 0 % Low 1-[address] [facility] Comment on above: Performed By: #### R EJEC, LYTE, B12FOL, MG #### [address] [address] Spare Hand: Giovani Stafford MD Immature granulocytes/100 WBC (Bld) 0 % Normal [address] [facility] Comment on above: Performed By: #### R BHAVANA LYTE, B12FOL, MG #### [address] [address] Spare Hand: Giovani Stafford MD Lymphocytes (Bld) [#/Vol] 0.32 10*3/uL Low 1.0-4.[address] [facility] Comment on above: Performed By: #### R EJEC, LYTE, B12FOL, MG #### [facility] [employer] [address] [place] [address] Spare Hand: Giovani Stafford MD Lymphocytes/100 WBC (Bld) 4 % Low 24-[address] [facility] Comment on above: Performed By: #### R EJEC, LYTE, B12FOL, MG #### [address] [address] Spare Hand: Giovani Stafford MD Monocytes (Bld) [#/Vol] 0.32 10*3/uL Normal 0.1-0.[address] [facility] Comment on above: Performed By: #### R EJEC, LYTE, B12FOL, MG #### [address] [address] Spare Hand: Giovani Stafford MD Monocytes/100 WBC (Bld) 4 % Normal 1-7 [facility] Comment on above: Performed By: #### R EJEC, LYTE, B12FOL, MG #### [address] [address] Spare Hand: Giovani Stafford MD Morphology Ambrose (Bld) [Interp] INCREASED BANDS PRESENT Normal [facility] Comment on above: Performed By: #### R EJEC, LYTE, B12FOL, MG #### [address] [address] Spare Hand: Giovani Stafford MD Neutrophil (Seg) 92 % High 36-66 [facility] Comment on above: Performed By: #### R EJEC, LYTE, B12FOL, MG #### [address] [address] Spare Hand: Giovani Stafford MD Erythrocyte distribution width (RBC) [Ratio] 13.9 % Normal 11.8-14.[address] [facility] Comment on above: Performed By: #### R EJEC, LYTE, B12FOL, MG #### [address] [address] Spare Hand: Giovani Stafford MD Hematocrit (Bld) [Volume fraction] 27.8 % Low 40.7-50.[address] [facility] Comment on above: Performed By: #### R EJEC, LYTE, B12FOL, MG #### [address] [address] Spare Hand: Giovani Stafford MD Hemoglobin (Bld) [Mass/Vol] 9.0 g/dL Low 13.0-17.[address] [facility] Comment on above: Performed By: #### R EJKYRA LYTE, B12FOL, MG #### [address] [address] Spare Hand: Giovani Stafford MD MCH (RBC) [Entitic mass] 31.8 pg Normal 25.2-33.[address] [facility] Comment on above: Performed By: #### R EJEC, LYTE, B12FOL, MG #### [address] [address] Spare Hand: Giovani Stafford MD MCHC (RBC) [Mass/Vol] 32.4 g/dL Normal 28.4-34.8 [facility] Comment on above: Performed By: #### R EJKYRA, LYTE, B12FOL, MG #### [address] [address] Spare Hand: Giovani Stafford MD MCV (RBC) [Entitic vol] 98.2 fL Normal 82.6-102.9 [facility] Comment on above: Performed By: #### R EJEC, LYTE, B12FOL, MG #### [address] [address] Spare Hand: Giovani Stafford MD NRBC Automated 0.0 per 100 WBC Normal 0.[address] [facility] Comment on above: Performed By: #### R EJKYRA, LYTE, B12FOL, MG #### [address] [address] Spare Hand: Giovani Stafford MD Platelet mean volume (Bld) [Entitic vol] 11.4 fL Normal 8.1-13.[address] [facility] Comment on above: Performed By: #### R EJKYRA LYTE, B12FOL, MG #### [address] [address] Spare Hand: Giovani Stafford MD Platelets (Bld) [#/Vol] 231 10*3/uL Normal 138-[address] [facility] Comment on above: Performed By: #### R EJEC, LYTE, B12FOL, MG #### [facility] [place] [address] Spare Hand: Giovani Stafford MD RBC (Bld) [#/Vol] 2.83 10*6/uL Low 4.21-5.[address] [facility] Comment on above: Performed By: #### R EJEC, LYTE, B12FOL, MG #### [facility] [address] [place] [address] Spare Hand: Giovani Stafford MD WBC (Bld) [#/Vol] 8.0 10*3/uL Normal 3.5-11.[address] [facility] Comment on above: Performed By: #### R EJEC, LYTE, B12FOL, MG #### [facility] [address] [place] [address] Spare Hand: Giovani Stafford MD Abs. Basophil 0.00 k/uL Normal 0.0-0.[address] [facility] Comment on above: Performed By: #### M G, BMPX, CDP, SUYAPA, LACTIC, IOCAL, REJEC ####[facility] [address] [place], [place] [phone] Director: Giovani Stafford MD Abs.Imm.Granulocyte 0.00 k/uL Normal 0.00-0.[address] [facility] Comment on above: Performed By: #### M G, BMPX, CDP, SUYAPA, LACTIC, IOCAL, REJEC ####[facility] [address] [place], [place] [phone] Director: Giovani Stafford MD Abs.Neutrophil (Seg) 8.45 k/uL High 1.8-7.7 [facility] Comment on above: Performed By: #### M G, BMPX, CDP, SUYAPA, LACTIC, IOCAL, REJEC ####[facility] [address] [place] [address] Lab Director: Giovani Stafford MD Basophils/100 WBC (Bld) 0 % Normal 0-2 [facility] Comment on above: Performed By: #### M G, BMPX, CDP, SUYAPA, LACTIC, IOCAL, REJEC ####[facility] [address] [place] [address] Lab Director: Giovani Stafford MD Eosinophils (Bld) [#/Vol] 0.00 10*3/uL Normal 0.0-0.[address] [facility] Comment on above: Performed By: #### M G, BMPX, CDP, SUYAPA, LACTIC, IOCAL, REJEC ####[facility] [address] [place] [phone])[phone] Director: Giovani Stafford MD Eosinophils/100 WBC (Bld) 0 % Low 1-[address] [facility] Comment on above: Performed By: #### M G, BMPX, CDP, SUYAPA, LACTIC, IOCAL, REJEC ####[facility] [address] [place] [address] Lab Director: Giovani Stafford MD Immature granulocytes/100 WBC (Bld) 0 % Normal [address] [facility] Comment on above: Performed By: #### M G, BMPX, CDP, SUYAPA, LACTIC, IOCAL, REJEC ####[facility] [address] [place], [place] [phone] Director: Giovani Stafford MD Lymphocytes (Bld) [#/Vol] 0.09 10*3/uL Low 1.0-4.[address] [facility] Comment on above: Performed By: #### M G, BMPX, CDP, SUYAPA, LACTIC, IOCAL, REJEC ####[facility] [address] [place] [address] Lab Director: Giovani Stafford MD Lymphocytes/100 WBC (Bld) 1 % Low 24-[address] [facility] Comment on above: Performed By: #### M G, BMPX, CDP, SUYAPA, LACTIC, IOCAL, REJEC ####[address] [phone] Director: Giovani Stafford MD Monocytes (Bld) [#/Vol] 0.36 10*3/uL Normal 0.1-0.[address] [facility] Comment on above: Performed By: #### M G, BMPX, CDP, SUYAPA, LACTIC, IOCAL, REJEC ####[place], [place] [address])[phone] Director: Giovani Stafford MD Monocytes/100 WBC (Bld) 4 % Normal 1-7 [facility] Comment on above: Performed By: #### M G, BMPX, CDP, SUYAPA, LACTIC, IOCAL, REJEC ####[place], [place] [address])[phone] Director: Giovani Stafford MD Morphology Ambrose (Bld) [Interp] INCREASED BANDS PRESENT Normal [facility] Comment on above: Performed By: #### M G, BMPX, CDP, SUYAPA, LACTIC, IOCAL, REJEC ####[place], [place] [phone] Director: Giovani Stafford MD Neutrophil (Seg) 95 % High 36-66 [facility] Comment on above: Performed By: #### M G, BMPX, CDP, SUYAPA, LACTIC, IOCAL, REJEC ####[place] [place] [place], [place] [phone] Director: Giovani Stafford MD Erythrocyte distribution width (RBC) [Ratio] 13.9 % Normal 11.8-14.[address] [facility] Comment on above: Performed By: #### M G, BMPX, CDP, SUYAPA, LACTIC, IOCAL, REJEC ####[facility] [address] [place] [address] Lab Director: Giovani Stafford MD Hematocrit (Bld) [Volume fraction] 28.2 % Low 40.7-50.[address] [facility] Comment on above: Performed By: #### M G, BMPX, CDP, SUYAPA, LACTIC, IOCAL, REJEC ####[address] [address] lab Director: Giovani Stafford MD Hemoglobin (Bld) [Mass/Vol] 9.1 g/dL Low 13.0-17.[address] [facility] Comment on above: Performed By: #### M G, BMPX, CDP, SUYAPA, LACTIC, IOCAL, REJEC ####[place] [address] [facility] Director: Giovani Stafford MD MCH (RBC) [Entitic mass] 31.8 pg Normal 25.2-33.[address] [facility] Comment on above: Performed By: #### M G, BMPX, CDP, SUYAPA, LACTIC, IOCAL, REJEC ####[place] [address] [facility] Director: Giovani Stafford MD MCHC (RBC) [Mass/Vol] 32.3 g/dL Normal 28.4-34.8 [facility] Comment on above: Performed By: #### M G, BMPX, CDP, SUYAPA, LACTIC, IOCAL, REJEC ####[facility] [address] [place] [address] Lab Director: Giovani Stafford MD MCV (RBC) [Entitic vol] 98.6 fL Normal 82.6-102.9 [facility] Comment on above: Performed By: #### M G, BMPX, CDP, SUYAPA, LACTIC, IOCAL, REJEC ####[address] [place] [phone] Director: Giovani Stafford MD NRBC Automated 0.0 per 100 WBC Normal 0.[address] [facility] Comment on above: Performed By: #### M G, BMPX, CDP, SUYAPA, LACTIC, IOCAL, REJEC ####[facility] [address] [place] [address] [phone] Director: Giovani Stafford MD Platelet mean volume (Bld) [Entitic vol] 10.5 fL Normal 8.1-13.[address] [facility] Comment on above: Performed By: #### M G, BMPX, CDP, SUYAPA, LACTIC, IOCAL, REJEC ####[address] [phone] Director: Giovani Stafford MD Platelets (Bld) [#/Vol] 236 10*3/uL Normal 138-[address] [facility] Comment on above: Performed By: #### M G, BMPX, CDP, SUYAPA, LACTIC, IOCAL, REJEC ####[address] [phone] Director: Giovani Stafford MD RBC (Bld) [#/Vol] 2.86 10*6/uL Low 4.21-5.[address] [facility] Comment on above: Performed By: #### M G, BMPX, CDP, SUYAPA, LACTIC, IOCAL, REJEC ####[facility] [address] [place] [address] [phone] Director: Giovani Stafford MD WBC (Bld) [#/Vol] 8.9 10*3/uL Normal 3.5-11.[address] [facility] Comment on above: Performed By: #### M G, BMPX, CDP, SUYAPA, LACTIC, IOCAL, REJEC ####[facility] [address] [place] [address] [phone] Director: Giovani Stafford MD Calcium, Ionicon 06-27-2023 Calcium [Moles/Vol] 1.18 mmol/L Normal 1.13-1.33 [facility] Comment on above: Performed By: #### M G, BMPX, CDP, SUYAPA, LACTIC, IOCAL, REJEC ####[facility] [address] [place] [address] Lab Director: Giovani Stafford MD FL UGIon 06-27-2023 [place] UGI EXAMINATION: SINGLE CONTRAST UPPER GI SERIES 06/27/2023 HISTORY: ORDERING SYSTEM PROVIDED HISTORY: post hiatal hernia repair w/ G tube TECHNOLOGIST PROVIDED HISTORY: post hiatal hernia repair w/ G tube Reason for Exam: post hiatal hernis repair 1.1minft 88-year-old male status post hiatal hernia repair with G-tube COMPARISON: KUB from 06/26/2023 TECHNIQUE: Multiple single contrast images of the stomach were taken after the injection of the stomach with 100 mL of Omnipaque 240 contrast through the gastrostomy tube. FLUOROSCOPY DOSE AND TYPE: Fluoro time: 1.1 minutes Air kerma: 61.263 mGy FINDINGS: Patient was unable to stand and drink the oral contrast. Fluoroscopic straw hat brusher images of the abdomen pelvis were obtained prior to the injection of any contrast into the G-tube. The patient was placed in the AP supine position on the table in the gastrostomy tube was injected with contrast. There was prompt distention of the stomach with contrast which migrated to the gastric fundus. Contrast also migrated to the duodenal C-loop and into proximal small bowel/jejunal loops. No reflux of contrast is noted at the GE junction or distal esophagus. Morphology of the gastric fundus likely related to recent hiatal hernia repair. No clear evidence for extravasation on limited imaging. Evidence of multilevel vertebroplasty in the thoracolumbar spine. After the gastrostomy tube was injected, the patient was turned 30 degrees in the reverse Trendelenburg position and left posterior oblique. Contrast migrated to the gastric fundus. No extravasation was noted. Intramedullary kaylie and dynamic left femoral screw noted. Atherosclerotic calcification of the aorta and branch vasculature. Moderate stool burden. Branch catheter projects over the pelvis. IMPRESSION: 1. Postoperative changes related to hiatal hernia repair. 2. Limited single contrast upper GI series without clear evidence for a postoperative leak within the marked limitations of the study. Interpreted by: Paul Barakat MD Signed by: Paul Barakat MD 06/27/[address] [facility] Glucose,Whole Bloodon 2023 Glucose [Mass/Vol] 144 mg/dL High 75-[address] [facility] Glucose [Mass/Vol] 190 mg/dL High 75-[address] [facility] Hgb/Hcton 06-27-2023 Hematocrit (Bld) [Volume fraction] 33.0 % Low 40.7-50.[address] [facility] Comment on above: Performed By: #### C DP, BMPX, MG, SUYAPA #### [facility] [address] [place] [address] Spare Hand: Giovani Stafford MD Hemoglobin (Bld) [Mass/Vol] 11.1 g/dL Low 13.0-17.[address] [facility] Comment on above: Performed By: #### C DP, BMPX, MG, SUYAPA #### [facility] [address] [place] [address] Spare Hand: Giovani Stafford MD Lactic Acidon 06-27-2023 Lactic Acid,Whole Bl 0.9 mmol/L Normal 0.7-2.1 [facility] Comment on above: Performed By: #### M G, BMPX, CDP, SUYAPA, LACTIC, IOCAL, REJEC ####[facility] [id number] [place] [address] Lab Director: Giovani Stafford MD Magnesiumon 06-27-2023 Magnesium [Mass/Vol] 2.1 mg/dL Normal 1.6-2.6 [facility] Comment on above: Performed By: #### R EJEC, LYTE, B12FOL, MG #### [facility] [address] [place] [address] Spare Hand: Giovani Stafford MD Magnesium [Mass/Vol] 1.7 mg/dL Normal 1.6-2.6 [facility] Comment on above: Performed By: #### M G, BMPX, CDP, SUYAPA, LACTIC, IOCAL, REJEC ####[facility] [id number] [place] [address] Lab Director: Giovani Stafford MD PTon 06-27-2023 INR Coag (PPP) [Relative time] 1.4 {INR} Normal [facility] Comment on above: Result Comment: Therapeutic Range: Moderate Anticoagulant Intensity: INR = 2.0-3.0 High Anticoagulant Intensity: INR = 2.5-3.5 Performed By: #### R EJEC, LYTE, B12FOL, MG #### [facility] [address] [place] [address] Spare Hand: Giovani Stafford MD PT Coag (PPP) [Time] 16.5 s High 11.7-14.9 [facility] Comment on above: Performed By: #### R EJEC, LYTE, B12FOL, MG #### [facility] [address] [place] [address] Spare Hand: Giovani Stafford MD INR Coag (PPP) [Relative time] 1.4 {INR} Normal [facility] Comment on above: Result Comment: Therapeutic Range: Moderate Anticoagulant Intensity: INR = 2.0-3.0 High Anticoagulant Intensity: INR = 2.5-3.5 Performed By: #### C DP, BMPX, MG, SUYAPA #### [facility] [address] [place] [address] Spare Hand: Giovani Stafford MD PT Coag (PPP) [Time] 17.0 s High 11.7-14.9 [facility] Comment on above: Performed By: #### C DP, BMPX, MG, SUYAPA #### [facility] [address] [place] [address] Spare Hand: Giovani Stafford MD Phosphorus, Inorg.on 024 Phosphorus, Inorg. 2.9 mg/dL Normal 2.5-4.[address] [facility] Comment on above: Performed By: #### R EJEC, LYTE, B12FOL, MG #### [facility] [address] [place] [address] Spare Hand: Giovani Stafford MD Phosphorus, Inorg. 2.8 mg/dL Normal 2.5-4.[address] [facility] Comment on above: Performed By: #### M G, BMPX, CDP, SUYAPA, LACTIC, IOCAL, REJEC ####[facility] [id number] [place] [address] Lab Director: Giovani Stafford MD Specimen Rejectionon 024 Reason for rejection Unable to perform testing: Specimen quantity not sufficient. Normal [facility] Comment on above: Result Comment: JADA ICA Performed By: #### M G, BMPX, CDP, SUYAPA, LACTIC, IOCAL, REJEC ####[facility] [id number] [place] [address] Lab Director: Giovani Stafford MD Source of sample .BLOOD Normal [facility] Comment on above: Performed By: #### M G, BMPX, CDP, SUYAPA, LACTIC, IOCAL, REJEC ####[facility] [id number] [place] [address] Lab Director: Giovani Stafford MD Test ordered PT Normal [facility] Comment on above: Performed By: #### M G, BMPX, CDP, SUYAPA, LACTIC, IOCAL, REJEC ####[facility] [id number] [place] [address] Lab Director: Giovani Stafford MD TSH w/reflex to FT4on 2023 Thyroid Stim. Horm. 0.53 uIU/mL Normal 0.30-5.00 [facility] Comment on above: Performed By: #### R EJEC, LYTE, B12FOL, MG #### [facility] [address] [place] [address] Spare Hand: Giovani Stafford MD Vitamin D 25 OHon 06-27-2023 Vitamin D 25 OH 20.7 ng/mL Low >29.[address] [facility] Comment on above: Result Comment: Reference Range: Vitamin D status Range Deficiency <20 ng/mL Mild Deficiency 20-30 ng/mL Sufficiency 30-100 ng/mL Toxicity >100 ng/mL Performed By: #### R EJEC, LYTE, B12FOL, MG #### [facility] [employer] [address] [place], [place] [id number] Spare Hand: Giovani Stafford MD XR ABDOMEN FOR NG/OG/NE TUBE PLACEMENTon 06-27-2023 XR ABDOMEN FOR NG/OG/NE TUBE PLACEMENT EXAMINATION: ONE SUPINE XRAY VIEW(S) OF THE ABDOMEN 06/26/2023 2:23 am COMPARISON: None. HISTORY: ORDERING SYSTEM PROVIDED HISTORY: Confirmation of course of NG/OG/NE tube and location of tip of tube TECHNOLOGIST PROVIDED HISTORY: Confirmation of course of NG/OG/NE tube and location of tip of tube Portable?->Yes Reason for Exam: port Upright FINDINGS: Nasogastric tube is coiled back on itself within the stomach. The side port and tip likely remain within the stomach. The visualized bowel gas pattern is unremarkable. Chronic reticular opacities are seen in the lung bases. IMPRESSION: Nasogastric tube is coiled back on itself within the stomach. Interpreted by: Phyllis Nixon MD Signed by: Phyllis Nixon MD 06/27/[address] [facility] XR ANKLE LEFT (2 VIEWS)on XR ANKLE LEFT (2 VIEWS) EXAMINATION: 2 XRAY VIEWS OF THE LEFT ANKLE 06/27/2023 3:23 pm COMPARISON: None. HISTORY: ORDERING SYSTEM PROVIDED HISTORY: Stress exam TECHNOLOGIST PROVIDED HISTORY: Stress exam Reason for Exam: olbique stress view, with ortho resident FINDINGS: Osteopenia is seen. There is partially united fracture of the distal fibula above the level of syndesmosis. There is no instability on stress views. Surrounding soft tissue swelling is seen. No radiopaque foreign bodies are noted. IMPRESSION: Partially united fracture of the distal fibula above the level of the syndesmosis. Interpreted by: Vic Curry MD Signed by: Vic Curry MD 06/27/[address] [facility] XR ANKLE LEFT (MIN 3 VIEWS)o n 06-27-2023 XR ANKLE LEFT (MIN 3 VIEWS) EXAMINATION: THREE XRAY VIEWS OF THE LEFT ANKLE 06/27/2023 3:23 pm COMPARISON: None. HISTORY: ORDERING SYSTEM PROVIDED HISTORY: Trauma/Fracture TECHNOLOGIST PROVIDED HISTORY: Trauma/Fracture Reason for Exam: trauma /fx port at 357pm FINDINGS: Oblique fracture of the distal fibular diaphysis is noted with partial union. There is generalized osteopenia. Ankle joint is normal in alignment. There is subacute fracture of the posterior process of the calcaneum with callus response. Vascular calcifications are seen. IMPRESSION: 1. Subacute fracture of the posterior process of the calcaneum. 2. Oblique fracture of the distal fibular diaphysis with partial union. Interpreted by: Vic Curry MD Signed by: Vic Curry MD 06/27/[address] [facility] XR TIBIA FIBULA LEFT (2 VIEW S)on 06-27-2023 XR TIBIA FIBULA LEFT (2 VIEWS) EXAMINATION: 2 XRAY VIEWS OF THE LEFT TIBIA AND FIBULA 06/27/2023 1:18 pm COMPARISON: None. HISTORY: ORDERING SYSTEM PROVIDED HISTORY: Reassess known distal fibula fracture TECHNOLOGIST PROVIDED HISTORY: Reassess known distal fibula fracture FINDINGS: There is a nondisplaced distal fibular fracture. There is some adjacent sclerosis in the fibula, in keeping with normal evolution of a fracture. IMPRESSION: Nondisplaced distal fibular fracture. Examination otherwise unremarkable. Interpreted by: Ash Devi MD Signed by: Ash Devi MD 06/27/[address] [facility] APTTon 06-26-2023 aPTT Coag (Bld) [Time] 29.4 s Normal 23.0-36.5 [facility] Comment on above: Result Comment: IV Heparin Therapy Range: 66.0-92.0 sec Performed By: #### C DP, BMPX, MG, SUYAPA #### [facility] [address] [place] [address] Spare Hand: Giovani Stafford MD B12/Folate Panelon Cobalamin (Vitamin B12) [Mass/Vol] 485 pg/mL Normal 232-[address] [facility] Comment on above: Performed By: #### PINA SANTANATE, B12FOL, MG #### [facility] [address] [place] [address] Spare Hand: Giovani Stafford MD Folic Acid 8.3 ng/mL Normal >4.[address] [facility] Comment on above: Performed By: #### R BHAVANA LYTE, B12FOL, MG #### [facility] [employer] [address] [place] [address] Spare Hand: Giovani Stafford MD Basic Metab w/rfx MGon 06-268 Anion gap [Moles/Vol] 9 mmol/L Normal 9-16 [facility] Comment on above: Performed By: #### R BHAVANA LYTE, B12FOL, MG #### [facility] [employer] [address] [place] [address]21 Spare Hand: Giovani Stafford MD Calcium [Mass/Vol] 5.7 mg/dL Critically low 8.6-10.4 [facility] Comment on above: Performed By: #### PINA SANTANATE, B12FOL, MG #### [facility] [address] [place] [address]138 Spare Hand: Giovani Stafford MD Chloride [Moles/Vol] 115 mmol/L High 98-107 [facility] Comment on above: Performed By: #### R EJEC LYTE, B12FOL, MG #### [facility] [employer] [address] [place] [address]163 Spare Hand: Giovani Stafford MD CO2 [Moles/Vol] 20 mmol/L Normal 20-[address] [facility] Comment on above: Performed By: #### R EJEC, LYTE, B12FOL, MG #### [facility] [address] [place] [address] Spare Hand: Giovani Stafford MD Creatinine [Mass/Vol] 0.5 mg/dL Low 0.70-1.20 [facility] Comment on above: Performed By: #### R EJEC, LYTE, B12FOL, MG #### [address] [address] Spare Hand: Giovani Stafford MD GFR/1.73 sq M.predicted among non-blacks MDRD (S/P/Bld) [Vol rate/Area] mL/min/{1.73_m2} Normal >[address] [facility] Comment on above: Result Comment: These results are not intended for use in patients <18 years of age. eGFR results are calculated without a race factor using the 2020 CKD-EPI equation. Careful clinical correlation is recommended, particularly when comparing to results calculated using previous equations. The CKD-EPI equation is less accurate in patients with extremes of muscle mass, extra-renal metabolism of creatine, excessive creatine ingestion, or following therapy that affects renal tubular secretion. Performed By: #### R EJEC, LYTE, B12FOL, MG #### [address] [address] Spare Hand: Giovain Stafford MD Glucose [Mass/Vol] 110 mg/dL High 74-[address] [facility] Comment on above: Performed By: #### R EJEC, LYTE, B12FOL, MG #### [facility] [employer] [address] [place] [address]407 Spare Hand: Giovani Stafford MD Potassium [Moles/Vol] 2.5 mmol/L Critically low 3.7-5.[address] [facility] Comment on above: Performed By: #### R EJEC, LYTE, B12FOL, MG #### [facility] [employer] [address] [place] [address] 7[address]60 Spare Hand: Giovani Stafford MD Sodium [Moles/Vol] 144 mmol/L Normal 136-[address] [facility] Comment on above: Performed By: #### R EJEC LYTE, B12FOL, MG #### [facility] [address] [place] [address]96 Spare Hand: Giovani Stafford MD Urea nitrogen [Mass/Vol] 34 mg/dL High 8-[address] [facility] Comment on above: Performed By: #### R BHAVANA LYTE, B12FOL, MG #### [facility] [address] [place] [address]303 Spare Hand: Giovani Stafford MD Basic Metabolic Profon 06-26 Anion gap [Moles/Vol] 12 mmol/L Normal 9-17 [facility] Comment on above: Performed By: #### C DP, BMPX, MG, SUYAPA #### [facility] [employer] [address] [place] [address]18 Spare Hand: Giovani Stafford MD Calcium [Mass/Vol] 8.1 mg/dL Low 8.6-10.[address] [facility] Comment on above: Performed By: #### C DP, BMPX, MG, SUYAPA #### [facility] [address] [place] [address]395 Spare Hand: Giovani Stafford MD Chloride [Moles/Vol] 98 mmol/L Normal 98-107 [facility] Comment on above: Performed By: #### C DP, BMPX, MG, SUYAPA #### [facility] [address] [place] [address]27 Spare Hand: Giovani Stafford MD CO2 [Moles/Vol] 26 mmol/L Normal 20-[address] [facility] Comment on above: Performed By: #### C DP, BMPX, MG, SUYAPA #### [facility] [address] [place] [address] 95748 Spare Hand: Giovani Stafford MD Creatinine [Mass/Vol] 0.8 mg/dL Normal 0.7-1.2 [facility] Comment on above: Performed By: #### C DP, BMPX, MG, SUYAPA #### [facility] [employer] [address] [place] [address] 13835 Spare Hand: Giovani Stafford MD GFR/1.73 sq M.predicted among non-blacks MDRD (S/P/Bld) [Vol rate/Area] mL/min/{1.73_m2} Normal >[address] [facility] Comment on above: Result Comment: These results are not intended for use in patients <18 years of age. eGFR results are calculated without a race factor using the 2020 CKD-EPI equation. Careful clinical correlation is recommended, particularly when comparing to results calculated using previous equations. The CKD-EPI equation is less accurate in patients with extremes of muscle mass, extra-renal metabolism of creatine, excessive creatine ingestion, or following therapy that affects renal tubular secretion. Performed By: #### C DP, BMPX, MG, SUYAPA #### [facility] [address] [place] [address]26 Spare Hand: Giovani Stafford MD Glucose [Mass/Vol] 146 mg/dL High 70-[address] [facility] Comment on above: Performed By: #### C DP, BMPX, MG, SUYAPA #### [facility] [address] [place] [address]642 Spare Hand: Giovani Stafford MD Potassium [Moles/Vol] 3.8 mmol/L Normal 3.7-5.3 [facility] Comment on above: Performed By: #### C DP, BMPX, MG, SUYAPA #### [facility] [address] [place] [address]60 Spare Hand: Giovani Stafford MD Sodium [Moles/Vol] 136 mmol/L Normal 135-[address] [facility] Comment on above: Performed By: #### C DP, BMPX, MG, SUYAPA #### [facility] [address] [place] [address] 6[address]89 Spare Hand: Giovani Stafford MD Urea nitrogen [Mass/Vol] 37 mg/dL High 8-[address] [facility] Comment on above: Performed By: #### C DP, BMPX, MG, SUYAPA #### [facility] [address] [place] [address] 7[address]63 Spare Hand: Giovani Stafford MD Brain Natri. Peptideon 06-26 Natriuretic peptide B (Bld) [Mass/Vol] 1263 pg/mL High 0-[address] [facility] Comment on above: Result Comment: An a ge-independent cutoff point of 300 pg/ml has a 98% negative predictive value excluding acute heart failure. Performed By: #### R EJEC, LYTE, B12FOL, MG #### [facility] [address] [place] [address]129 Spare Hand: Giovani Stafford MD CBCon 2 Erythrocyte distribution width (RBC) [Ratio] 13.2 % Normal 11.8-14.[address] [facility] Comment on above: Performed By: #### C DP, BMPX, MG, SUYAPA #### [facility] [address] [place] [address] 6[address]07 Spare Hand: Giovani Stafford MD Hematocrit (Bld) [Volume fraction] 21.7 % Low 40.7-50.[address] [facility] Comment on above: Performed By: #### C DP, BMPX, MG, SUYAPA #### [facility] [address] [place] [address]40 Spare Hand: Giovani Stafford MD Hemoglobin (Bld) [Mass/Vol] 6.8 g/dL Critically low 13.0-17.[address] [facility] Comment on above: Performed By: #### C DP, BMPX, MG, SUYAPA #### [employer] [address] [place] [address] 72076 Spare Hand: Giovani Stafford MD MCH (RBC) [Entitic mass] 31.9 pg Normal 25.2-33.[address] [facility] Comment on above: Performed By: #### C DP, BMPX, MG, SUYAPA #### [address] [address] Spare Hand: Giovani Stafford MD MCHC (RBC) [Mass/Vol] 31.3 g/dL Normal 28.4-34.8 [facility] Comment on above: Performed By: #### C DP, BMPX, MG, SUYAPA #### [address] [address] Spare Hand: Giovani Stafford MD MCV (RBC) [Entitic vol] 101.9 fL Normal 82.6-102.9 [facility] Comment on above: Performed By: #### C DP, BMPX, MG, SUYAPA #### [address] [address] Spare Hand: Giovani Stafford MD NRBC Automated 0.0 per 100 WBC Normal 0[address] [facility] Comment on above: Performed By: #### C DP, BMPX, MG, SUYAPA #### [address] [address] Spare Hand: Giovani Stafford MD Platelet mean volume (Bld) [Entitic vol] 10.6 fL Normal 8.1-13.[address] [facility] Comment on above: Performed By: #### C DP, BMPX, MG, SUYAPA #### [address] [address] Spare Hand: Giovani Stafford MD Platelets (Bld) [#/Vol] 251 10*3/uL Normal 138-[address] [facility] Comment on above: Performed By: #### C DP, BMPX, MG, SUYAPA #### [address] [address] Spare Hand: Giovani Stafford MD RBC (Bld) [#/Vol] 2.13 10*6/uL Low 4.21-5.[address] [facility] Comment on above: Performed By: #### C DP, BMPX, MG, SUYAPA #### [place] [address] Spare Hand: Giovani Stafford MD WBC (Bld) [#/Vol] 18.0 10*3/uL High 3.5-11.[address] [facility] Comment on above: Performed By: #### C DP, BMPX, MG, SUYAPA #### [place] [address] Spare Hand: Giovani Stafford MD CBC with Diffon 06-26-2023 Abs. Basophil 0.00 k/uL Normal 0.00-0.[address] [facility] Comment on above: Performed By: #### R EJEC, LYTE, B12FOL, MG #### [place] [address] Spare Hand: Giovani Stafford MD Abs.Imm.Granulocyte 0.20 k/uL Normal 0.00-0.[address] [facility] Comment on above: Performed By: #### R EJEC, LYTE, B12FOL, MG #### [place] [address] Spare Hand: Giovani Stafford MD Abs.Neutrophil (Seg) 17.81 k/uL High 1.50-8.10 [facility] Comment on above: Performed By: #### R EJEC, LYTE, B12FOL, MG #### [place] [address] Spare Hand: Giovani Stafford MD Basophils/100 WBC (Bld) 0 % Normal 0-2 [facility] Comment on above: Performed By: #### R EJEC, LYTE, B12FOL, MG #### [address] [address] Spare Hand: Giovani Stafford MD Eosinophils (Bld) [#/Vol] 0.00 10*3/uL Normal 0.00-0.[address] [facility] Comment on above: Performed By: #### R EJKYRA, LYTE, B12FOL, MG #### [address] [address] Spare Hand: Giovani Stafford MD Eosinophils/100 WBC (Bld) 0 % Low 1-[address] [facility] Comment on above: Performed By: #### R EJEC, LYTE, B12FOL, MG #### [address] [address] Spare Hand: Giovani Stafford MD Immature granulocytes/100 WBC (Bld) 1 % High [address] [facility] Comment on above: Performed By: #### R EJEC, LYTE, B12FOL, MG #### [place] [address] Spare Hand: Giovani Stafford MD Lymphocytes (Bld) [#/Vol] 0.40 10*3/uL Low 1.10-3.[address] [facility] Comment on above: Performed By: #### R EJKYRA, LYTE, B12FOL, MG #### [place] [address] Spare Hand: Giovani Stafford MD Lymphocytes/100 WBC (Bld) 2 % Low 24-[address] [facility] Comment on above: Performed By: #### R EJEC, LYTE, B12FOL, MG #### [address] [address] Spare Hand: Giovani Stafford MD Monocytes (Bld) [#/Vol] 1.39 10*3/uL High 0.10-1.[address] [facility] Comment on above: Performed By: #### R EJKYRA, LYTE, B12FOL, MG #### [address] [address] Spare Hand: Giovani Stafford MD Monocytes/100 WBC (Bld) 7 % Normal 3-12 [facility] Comment on above: Performed By: #### R EJEC, LYTE, B12FOL, MG #### [address] [address] Spare Hand: Giovani Stafford MD Morphology Ambrose (Bld) [Interp] MACROCYTOSIS PRESENT Normal [facility] Comment on above: Result Comment: 1+ ACANTHOCYTES Performed By: #### R EJEC, LYTE, B12FOL, MG #### [address] [address] Spare Hand: Giovani Stafford MD Neutrophil (Seg) 90 % High 36-65 [facility] Comment on above: Performed By: #### R EJEC, LYTE, B12FOL, MG #### [address] [address] Spare Hand: Giovani Stafford MD Erythrocyte distribution width (RBC) [Ratio] 13.1 % Normal 11.8-14.[address] [facility] Comment on above: Performed By: #### R EJEC, LYTE, B12FOL, MG #### [address] [address] Spare Hand: Giovani Stafford MD Hematocrit (Bld) [Volume fraction] 21.8 % Low 40.7-50.[address] [facility] Comment on above: Performed By: #### R EJEC, LYTE, B12FOL, MG #### [address] [address] Spare Hand: Giovani Stafford MD Hemoglobin (Bld) [Mass/Vol] 6.5 g/dL Critically low 13.0-17.[address] [facility] Comment on above: Performed By: #### R EJKYRA, LYTE, B12FOL, MG #### [address] [address] Spare Hand: Giovani Stafford MD MCH (RBC) [Entitic mass] 31.1 pg Normal 25.2-33.[address] [facility] Comment on above: Performed By: #### R EJKYRA, LYTE, B12FOL, MG #### [address] [address] Spare Hand: Giovani Stafford MD MCHC (RBC) [Mass/Vol] 29.8 g/dL Normal 28.4-34.8 [facility] Comment on above: Performed By: #### R EJKYRA, LYTE, B12FOL, MG #### [address] [address] Spare Hand: Giovani Stafford MD MCV (RBC) [Entitic vol] 104.3 fL High 82.6-102.9 [facility] Comment on above: Performed By: #### R BHAVANA LYTE, B12FOL, MG #### [address] [address] Spare Hand: Giovani Stafford MD NRBC Automated 0.0 per 100 WBC Normal 0.[address] [facility] Comment on above: Performed By: #### R EJKYRA LYTE, B12FOL, MG #### [address] [address] Spare Hand: Giovani Stafford MD Platelet mean volume (Bld) [Entitic vol] 10.6 fL Normal 8.1-13.[address] [facility] Comment on above: Performed By: #### R PINA BATEMANTE, B12FOL, MG #### [address] [address] Spare Hand: Giovani Stafford MD Platelets (Bld) [#/Vol] 229 10*3/uL Normal 138-[address] [facility] Comment on above: Performed By: #### R EJEC, LYTE, B12FOL, MG #### [facility] [address] [place] [address] Spare Hand: Giovani Stafford MD RBC (Bld) [#/Vol] 2.09 10*6/uL Low 4.21-5.[address] [facility] Comment on above: Performed By: #### R EJEC, LYTE, B12FOL, MG #### [address] [address] Spare Hand: Giovani Stafford MD WBC (Bld) [#/Vol] 19.8 10*3/uL High 3.5-11.[address] [facility] Comment on above: Performed By: #### R EJEC, LYTE, B12FOL, MG #### [facility] [employer] [address] [place] [address] Spare Hand: Giovani Stafford MD Abs. Basophil 0.00 k/uL Normal 0.0-0.[address] [facility] Comment on above: Performed By: #### C DP, BMPX, MG, SUYAPA #### [address] [address] Spare Hand: Giovani Stafford MD Abs.Imm.Granulocyte 0.00 k/uL Normal 0.00-0.[address] [facility] Comment on above: Performed By: #### C DP, BMPX, MG, SUYAPA #### [facility] [employer] [address] [place] [address] Spare Hand: Giovani Stafford MD Abs.Neutrophil (Seg) 24.93 k/uL High 1.8-7.7 [facility] Comment on above: Performed By: #### C DP, BMPX, MG, SUYAPA #### [facility] [address] [place] [address] Spare Hand: Giovani Stafford MD Basophils/100 WBC (Bld) 0 % Normal 0-2 [facility] Comment on above: Performed By: #### C DP, BMPX, MG, SUYAPA #### [address] [address] Spare Hand: Giovani Stafford MD Eosinophils (Bld) [#/Vol] 0.00 10*3/uL Normal 0.0-0.[address] [facility] Comment on above: Performed By: #### C DP, BMPX, MG, SUYAPA #### [address] [address] Spare Hand: Giovani Stafford MD Eosinophils/100 WBC (Bld) 0 % Low 1-[address] [facility] Comment on above: Performed By: #### C DP, BMPX, MG, SUYAPA #### [address] [address] Spare Hand: Giovani Stafford MD Immature granulocytes/100 WBC (Bld) 0 % Normal [address] [facility] Comment on above: Performed By: #### C DP, BMPX, MG, SUYAPA #### [address] [address] Spare Hand: Giovani Stafford MD Lymphocytes (Bld) [#/Vol] 0.80 10*3/uL Low 1.0-4.[address] [facility] Comment on above: Performed By: #### C DP, BMPX, MG, SUYAPA #### [address] [address] Spare Hand: Giovani Stafford MD Lymphocytes/100 WBC (Bld) 3 % Low 24-[address] [facility] Comment on above: Performed By: #### C DP, BMPX, MG, SUYAPA #### [address] [address] Spare Hand: Giovani Stafford MD Monocytes (Bld) [#/Vol] 1.07 10*3/uL High 0.1-0.[address] [facility] Comment on above: Performed By: #### C DP, BMPX, MG, SUYAPA #### [address] [address] Spare Hand: Giovani Stafford MD Monocytes/100 WBC (Bld) 4 % Normal 1-7 [facility] Comment on above: Performed By: #### C DP, BMPX, MG, SUYAPA #### [place] [address] Spare Hand: Giovani Stafford MD Morphology Ambrose (Bld) [Interp] Normal Normal [facility] Comment on above: Performed By: #### C DP, BMPX, MG, SUYAPA #### [place] [address] Spare Hand: Giovani Stafford MD Neutrophil (Seg) 93 % High 36-66 [facility] Comment on above: Performed By: #### C DP, BMPX, MG, SUYAPA #### [address] [address] Spare Hand: Giovani Stafford MD Erythrocyte distribution width (RBC) [Ratio] 13.3 % Normal 11.8-14.[address] [facility] Comment on above: Performed By: #### C DP, BMPX, MG, SUYAPA #### [address] [address] Spare Hand: Giovani Stafford MD Hematocrit (Bld) [Volume fraction] 29.4 % Low 40.7-50.[address] [facility] Comment on above: Performed By: #### C DP, BMPX, MG, SUYAPA #### [address] [address] Spare Hand: Giovani Stafford MD Hemoglobin (Bld) [Mass/Vol] 9.3 g/dL Low 13.0-17.[address] [facility] Comment on above: Performed By: #### C DP, BMPX, MG, SUYAPA #### [address] [address] Spare Hand: Giovani Stafford MD MCH (RBC) [Entitic mass] 31.8 pg Normal 25.2-33.[address] [facility] Comment on above: Performed By: #### C DP, BMPX, MG, SUYAPA #### [address] [address] Spare Hand: Giovani Stafford MD MCHC (RBC) [Mass/Vol] 31.6 g/dL Normal 28.4-34.8 [facility] Comment on above: Performed By: #### C DP, BMPX, MG, SUYAPA #### [address] [address] Spare Hand: Giovani Stafford MD MCV (RBC) [Entitic vol] 100.7 fL Normal 82.6-102.9 [facility] Comment on above: Performed By: #### C DP, BMPX, MG, SUYAPA #### [address] [address] Spare Hand: Giovani Stafford MD NRBC Automated 0.0 per 100 WBC Normal 0[address] [facility] Comment on above: Performed By: #### C DP, BMPX, MG, SUYAPA #### [facility] [employer] [address] [place] [address] Spare Hand: Giovani Stafford MD Platelet mean volume (Bld) [Entitic vol] 10.7 fL Normal 8.1-13.[address] [facility] Comment on above: Performed By: #### C DP, BMPX, MG, SUYAPA #### [facility] [employer] [address] [place] [address] Spare Hand: Giovani Stafford MD Platelets (d) [#/Vol] 345 10*3/uL Normal 138-[address] [facility] Comment on above: Performed By: #### C DP, BMPX, MG, SUYAPA #### [address] [address] Spare Hand: Giovani Stafford MD RBC (d) [#/Vol] 2.92 10*6/uL Low 4.21-5.[address] [facility] Comment on above: Performed By: #### C DP, BMPX, MG, SUYAPA #### [address] [address] Spare Hand: Giovani Stafford MD WBC (d) [#/Vol] 26.8 10*3/uL High 3.5-11.[address] [facility] Comment on above: Performed By: #### C DP, BMPX, MG, SUYAPA #### [facility] [employer] [address] [place] [address] Spare Hand: Giovani Stafford MD Calcium, Ionicon 06-26-2023 Calcium [Moles/Vol] 1.39 mmol/L High 1.13-1.33 [facility] Comment on above: Performed By: #### C DP, BMPX, MG, SUYAPA #### [facility] [employer] [address] [place] [address] Spare Hand: Giovani Stafford MD Calcium [Moles/Vol] 1.07 mmol/L Low 1.13-1.33 [facility] Comment on above: Performed By: #### C DP, BMPX, MG, SUYAPA #### [facility] [employer] [address] [place] [address] Spare Hand: Giovani Stafford MD Comp Metabolic Pr/rfx MGon 0 06-26-2023 Potassium [Moles/Vol] 3.0 mmol/L Low 3.7-5.3 [facility] Comment on above: Performed By: #### C DP, BMPX, MG, SUYAPA #### [facility] [employer] [address] [place] [address] Spare Hand: Giovani Stafford MD Albumin [Mass/Vol] 2.5 g/dL Low 3.5-5.[address] [facility] Comment on above: Performed By: #### C DP, BMPX, MG, SUYAPA #### [address] [address] Spare Hand: Giovani Stafford MD Albumin/Glob Ratio 1.3 Normal 1.0-2.[address] [facility] Comment on above: Performed By: #### C DP, BMPX, MG, SUYAPA #### [address] [address] Spare Hand: Giovani Stafford MD Alkaline Phos 61 U/L Normal 40-[address] [facility] Comment on above: Performed By: #### C DP, BMPX, MG, SUYAPA #### [address] [address] Spare Hand: Giovani Stafford MD ALT [Catalytic activity/Vol] 7 U/L Normal 5-[address] [facility] Comment on above: Performed By: #### C DP, BMPX, MG, SUYAPA #### [address] [address] Spare Hand: Giovani Stafford MD Anion gap [Moles/Vol] 10 mmol/L Normal 9-17 [facility] Comment on above: Performed By: #### C DP, BMPX, MG, SUYAPA #### [facility] [employer] [address] [place] [address] Spare Hand: Giovani Stafford MD AST [Catalytic activity/Vol] 9 U/L Normal <[address] [facility] Comment on above: Performed By: #### C DP, BMPX, MG, SUYAPA #### [facility] [place] [address] Spare Hand: Giovani Stafford MD Bilirubin [Mass/Vol] 0.4 mg/dL Normal 0.3-1.2 [facility] Comment on above: Performed By: #### C DP, BMPX, MG, SUYAPA #### [facility] [address] [place] [address] Spare Hand: Giovani Stafford MD Calcium [Mass/Vol] 6.6 mg/dL Low 8.6-10.[address] [facility] Comment on above: Performed By: #### C DP, BMPX, MG, SUYAPA #### [facility] [employer] [address] [place] [address] Spare Hand: Giovani Stafford MD Chloride [Moles/Vol] 108 mmol/L High 98-107 [facility] Comment on above: Performed By: #### C DP, BMPX, MG, SUYAPA #### [facility] [address] [place] [address] Spare Hand: Giovani Stafford MD CO2 [Moles/Vol] 24 mmol/L Normal 20-[address] [facility] Comment on above: Performed By: #### C DP, BMPX, MG, SUYAPA #### [facility] [address] [place] [address] Spare Hand: Giovani Stafford MD Creatinine [Mass/Vol] 0.5 mg/dL Low 0.7-1.2 [facility] Comment on above: Performed By: #### C DP, BMPX, MG, SUYAPA #### [facility] [address] [place] [address] Spare Hand: Giovani Stafford MD GFR/1.73 sq M.predicted among non-blacks MDRD (S/P/Bld) [Vol rate/Area] mL/min/{1.73_m2} Normal >[address] [facility] Comment on above: Result Comment: These results are not intended for use in patients <18 years of age. eGFR results are calculated without a race factor using the 2020 CKD-EPI equation. Careful clinical correlation is recommended, particularly when comparing to results calculated using previous equations. The CKD-EPI equation is less accurate in patients with extremes of muscle mass, extra-renal metabolism of creatine, excessive creatine ingestion, or following therapy that affects renal tubular secretion. Performed By: #### C DP, BMPX, MG, SUYAPA #### [facility] [address] [place] [address] Spare Hand: Giovani Stafford MD Glucose [Mass/Vol] 127 mg/dL High 70-[address] [facility] Comment on above: Performed By: #### C DP, BMPX, MG, SUYAPA #### [facility] [employer] [address] [place] [address] Spare Hand: Giovani Stafford MD Protein [Mass/Vol] 4.5 g/dL Low 6.4-8.[address] [facility] Comment on above: Performed By: #### C DP, BMPX, MG, SUYAPA #### [facility] [employer] [address] [place] [address] Spare Hand: Giovani Stafford MD Sodium [Moles/Vol] 142 mmol/L Normal 135-[address] [facility] Comment on above: Performed By: #### C DP, BMPX, MG, SUYAPA #### [facility] [address] [place] [address] Spare Hand: Giovani Stafford MD Urea nitrogen [Mass/Vol] 36 mg/dL High 8-[address] [facility] Comment on above: Performed By: #### C DP, BMPX, MG, SUYAPA #### [facility] [employer] [address] [place] [address] Spare Hand: Giovani Stafford MD Electrolyteson 06-26-2023 Anion gap [Moles/Vol] 12 mmol/L Normal 9-17 [facility] Comment on above: Performed By: #### R BHAVANA LYTE, B12FOL, MG #### [facility] [address] [place] [address] Spare Hand: Giovani Stafford MD Chloride [Moles/Vol] 101 mmol/L Normal 98-107 [facility] Comment on above: Performed By: #### R EJKYRA LYTE, B12FOL, MG #### [facility] [address] [place] [address] Spare Hand: Giovani Stafford MD CO2 [Moles/Vol] 27 mmol/L Normal 20-[address] [facility] Comment on above: Performed By: #### R EJKYRA LYTE, B12FOL, MG #### [facility] [address] [place] [address] Spare Hand: Giovani Stafford MD Potassium [Moles/Vol] 3.4 mmol/L Low 3.7-5.3 [facility] Comment on above: Performed By: #### R BHAVANA LYTE, B12FOL, MG #### [facility] [address] [place] [address] Spare Hand: Giovani Stafford MD Sodium [Moles/Vol] 140 mmol/L Normal 135-[address] [facility] Comment on above: Performed By: #### R BHAVANA LYTE, B12FOL, MG #### [facility] [employer] [address] [place] [address] Spare Hand: Giovani Stafford MD Ferritinon 0 Ferritin [Mass/Vol] 159 ng/mL Normal 30-[address] [facility] Comment on above: Performed By: #### R EJKYRA LYTE, B12FOL, MG #### [facility] [address] [place] [address] Spare Hand: Giovani Stafford MD Glucose,Whole Bloodon 2023 Glucose [Mass/Vol] 144 mg/dL High 75-[address] [facility] Glucose [Mass/Vol] 150 mg/dL High 75-[address] [facility] Hgb/Hcton 06-26-2023 Hematocrit (Bld) [Volume fraction] 34.5 % Low 40.7-50.[address] [facility] Comment on above: Performed By: #### C DP, BMPX, MG, SUYAPA #### [facility] [employer] [address] [place] [address] Spare Hand: Giovani Stafford MD Hemoglobin (Bld) [Mass/Vol] 10.9 g/dL Low 13.0-17.[address] [facility] Comment on above: Performed By: #### C DP, BMPX, MG, SUYAPA #### [facility] [employer] [address] [place] [address] Spare Hand: Giovani Stafford MD Iron Binding Cap.on 06-26-19 24 % Fe Saturation 33 % Normal 20-[address] [facility] Comment on above: Performed By: #### R EJEC, LYTE, B12FOL, MG #### [facility] [employer] [address] [place] [address] Spare Hand: Giovani Stafford MD Iron [Mass/Vol] 30 ug/dL Low 59-[address] [facility] Comment on above: Performed By: #### R EJEC, LYTE, B12FOL, MG #### [facility] [employer] [address] [place] [address] Spare Hand: Giovani Stafford MD Total Fe Binding Cap 90 ug/dL Low 250-450 [facility] Comment on above: Performed By: #### R EJEC, LYTE, B12FOL, MG #### [facility] [employer] [address] [place] [address] Spare Hand: Giovani Stafford MD Unbound Fe Bind Cap 60 ug/dL Low 112-[address] [facility] Comment on above: Performed By: #### R EJEC, LYTE, B12FOL, MG #### [facility] [address] [place] [address] Spare Hand: Giovani Stafford MD K (Potassium)on 06-26-2023 Potassium [Moles/Vol] 3.9 mmol/L Normal 3.7-5.3 [facility] Comment on above: Performed By: #### C DP, BMPX, MG, SUYAPA #### [facility] [address] [place] [address] Spare Hand: Giovani Stafford MD Lactic Acidon 06-26-2023 Lactic Acid,Whole Bl 2.2 mmol/L High 0.7-2.1 [facility] Comment on above: Performed By: #### C DP, BMPX, MG, SUYAPA #### [facility] [address] [place] [address] Spare Hand: Giovani Stafford MD Lactic Acid,Whole Bl 1.7 mmol/L Normal 0.7-2.1 [facility] Comment on above: Performed By: #### R EJEC, LYTE, B12FOL, MG #### [facility] [address] [place] [address] Spare Hand: Giovani Stafford MD Lactic Acid,Whole Bl 2.3 mmol/L High 0.7-2.1 [facility] Comment on above: Performed By: #### C DP, BMPX, MG, SUYAPA #### [facility] [address] [place] [address] Spare Hand: Giovani Stafford MD Lactic Acid,Whole Bl 4.3 mmol/L High 0.7-2.1 [facility] Comment on above: Performed By: #### C DP, BMPX, MG, SUYAPA #### [facility] [address] [place] [address] Spare Hand: Giovani Stafford MD MRSA, DNA, Nasalon MRSA, DNA, Nasal Negative Normal NEG [facility] Comment on above: Result Comment: NEGA TIVE: MRSA DNA not detected by nucleic acid amplification. Results should be used as an adjunct to nosocomial control efforts to identify patients needing enhanced precautions. The test is not intended to identify patients with staphylococcal infections. Results should not be used to guide or monitor treatment for MRSA infections. Performed By: #### C DP, BMPX, MG, SUYAPA #### [facility] [employer] [address] [place] [address] Spare Hand: Giovani Stafford MD Specimen Description .NASAL SWAB Normal [facility] Comment on above: Performed By: #### C DP, BMPX, MG, SUYAPA #### [facility] [employer] [address] [place] [address] Spare Hand: Giovani Stafford MD Magnesiumon 06-26-2023 Magnesium [Mass/Vol] 2.0 mg/dL Normal 1.6-2.6 [facility] Comment on above: Performed By: #### R PINA BATEMANTE, B12FOL, MG #### [facility] [employer] [address] [place] [address] Spare Hand: Giovani Stafford MD Magnesium [Mass/Vol] 1.5 mg/dL Low 1.6-2.4 [facility] Comment on above: Performed By: #### R EJEC LYTE, B12FOL, MG #### [facility] [employer] [address] [place] [address] Spare Hand: Giovani Stafford MD Magnesium [Mass/Vol] 1.4 mg/dL Low 1.6-2.6 [facility] Comment on above: Performed By: #### C DP, BMPX, MG, SUYAPA #### [facility] [employer] [address] [place] [address] Spare Hand: Giovani Stafford MD Magnesium [Mass/Vol] 1.7 mg/dL Normal 1.6-2.6 [facility] Comment on above: Performed By: #### C DP, BMPX, MG, SUYAPA #### [address] [address] Spare Hand: Giovani Stafford MD Open Heart Panelon 4 Feliciano Test INFORMATION NOT PROVIDED Normal [facility] Comment on above: Performed By: #### C DP, BMPX, MG, SUYAPA #### [address] [address] Spare Hand: Giovani Stafford MD Body Temp. 37.[address] [facility] Comment on above: Performed By: #### C DP, BMPX, MG, SUYAPA #### [address] [address] Spare Hand: Giovani Stafford MD Carboxy Hgb 1.2 % Normal 0-[address] [facility] Comment on above: Result Comment: Reference Range: Non-Smokers 0-2% Average Smoker 2-4% Heavy Smoker <10% Performed By: #### C DP, BMPX, MG, SUYAPA #### [address] [address] Spare Hand: Giovani Stafford MD Chloride [Moles/Vol] 106 mmol/L Normal 98-110 [facility] Comment on above: Performed By: #### C DP, BMPX, MG, SUYAPA #### [address] [address] Spare Hand: Giovani Stafford MD FIO2 60% Normal [facility] Comment on above: Performed By: #### C DP, BMPX, MG, SUYAPA #### [address] [address] Spare Hand: Giovani Stafford MD Glucose [Mass/Vol] 216 mg/dL High 75-[address] [facility] Comment on above: Performed By: #### C DP, BMPX, MG, SUYAPA #### [facility] [employer] [address] [place] [address] Spare Hand: Giovani Stafford MD HCO3 (Bld) [Moles/Vol] 24.0 mmol/L Normal 22-27 [facility] Comment on above: Performed By: #### C DP, BMPX, MG, SUYAPA #### [address] [address] Spare Hand: Giovani Stafford MD Hematocrit (Bld) [Volume fraction] 32.1 % Low 40.7-50.[address] [facility] Comment on above: Performed By: #### C DP, BMPX, MG, SUYAPA #### [address] [address] Spare Hand: Giovani Stafford MD Hemoglobin (Bld) [Mass/Vol] 10.4 g/dL Low 13.0-17.[address] [facility] Comment on above: Performed By: #### C DP, BMPX, MG, SUYAPA #### [address] [address] Spare Hand: Giovani Stafford MD Negative Base Excess 0.9 mmol/L Normal 0.0-2.0 [facility] Comment on above: Performed By: #### C DP, BMPX, MG, SUYAPA #### [address] [address] Spare Hand: Giovani Stafford MD Oxygen (Bld) [Partial pressure] 116.0 mm[Hg] High 75-[address] [facility] Comment on above: Performed By: #### C DP, BMPX, MG, SUYAPA #### [address] [address] Spare Hand: Giovani Stafford MD Oxygen saturation in Blood 98.4 % Normal 94-[address] [facility] Comment on above: Performed By: #### C DP, BMPX, MG, SUYAPA #### [place] [address] Spare Hand: Giovani Stafford MD pCO2 43.5 mmHg Normal 32-[address] [facility] Comment on above: Performed By: #### C DP, BMPX, MG, SUYAPA #### [address] [address] Spare Hand: Giovani Stafford MD pH (Bld) 7.360 [pH] Normal 7.350-7.[address] [facility] Comment on above: Performed By: #### C DP, BMPX, MG, SUYAPA #### [facility] [employer] [address] [place] [address] Spare Hand: Giovani Stafford MD Potassium [Moles/Vol] 3.6 mmol/L Normal 3.6-5.0 [facility] Comment on above: Performed By: #### C DP, BMPX, MG, SUYAPA #### [address] [address] Spare Hand: Giovani Stafford MD Sodium [Moles/Vol] 136 mmol/L Normal 136-[address] [facility] Comment on above: Performed By: #### C DP, BMPX, MG, SUAYPA #### [facility] [employer] [address] [place] [address] Spare Hand: Giovani Stafford MD PTon 06-26-2023 INR Coag (PPP) [Relative time] 1.4 {INR} Normal [facility] Comment on above: Result Comment: Therapeutic Range: Moderate Anticoagulant Intensity: INR = 2.0-3.0 High Anticoagulant Intensity: INR = 2.5-3.5 Performed By: #### C DP, BMPX, MG, SUYAPA #### [facility] [employer] [address] [place] [address] Spare Hand: Giovani Stafford MD PT Coag (PPP) [Time] 16.6 s High 11.7-14.9 [facility] Comment on above: Performed By: #### C DP, BMPX, MG, SUYAPA #### [facility] [address] [place] [address] Spare Hand: Giovani Stafford MD Phosphorus, Inorg.on 024 Phosphorus, Inorg. 2.1 mg/dL Low 2.5-4.[address] [facility] Comment on above: Performed By: #### R EJEC, LYTE, B12FOL, MG #### [facility] [address] [place] [address] Spare Hand: Giovani Stafford MD Phosphorus, Inorg. 3.5 mg/dL Normal 2.5-4.[address] [facility] Comment on above: Performed By: #### C DP, BMPX, MG, SUYAPA #### [facility] [address] [place] [address] Spare Hand: Giovani Stafford MD Resp Viral Panelon 4 Adenovirus Not detected Normal [facility] Comment on above: Performed By: #### R CLOSER ON ####[address] [phone] Director: MD Westley Whalen.parapertussis Not detected Normal [facility] Comment on above: Performed By: #### R CLOSER ON ####[facility] [id number] [place], [place] [phone] Director: Giovani Stafford MD Bordetella pertussis Not detected Normal [facility] Comment on above: Performed By: #### R CLOSER ON ####[facility] [id number] [place], [place] [phone] Director: Giovani Stafford MD Chlamyd.pneumoniae Not detected Normal [facility] Comment on above: Performed By: #### R CLOSER ON ####[facility] [address] [place] [address] Lab Director: Giovani Stafford MD Coronavirus 229E Not detected Normal [facility] Comment on above: Performed By: #### R CLOSER ON ####[address] [phone] Director: Giovani Stafford MD Coronavirus HKU1 Not detected Normal [facility] Comment on above: Performed By: #### R CLOSER ON ####[address] [phone] Director: Giovani Stafford MD Coronavirus NL63 Not detected [facility] Comment on above: Performed By: #### R CLOSER ON ####[address] [address] Lab Director: Giovani Stafford MD Coronavirus OC43 Not detected [facility] Comment on above: Performed By: #### R CLOSER ON ####[address] [address] Lab Director: Giovani Stafford MD Human Metapneumo Not detected [facility] Comment on above: Performed By: #### R CLOSER ON ####[address] [address] Lab Director: Giovani Stafford MD Influenza A Not detected Normal [facility] Comment on above: Performed By: #### R CLOSER ON ####[address] [phone] Director: Giovani Stafford MD Influenza B Not detected [facility] Comment on above: Performed By: #### R CLOSER ON ####[address] [phone] Director: Giovani Stafford MD Mycoplas.pneumoniae Not detected Normal [facility] Comment on above: Result Comment: Perf ormed by multiplexed nucleic acid assay. Performed By: #### R CLOSER ON ####[address] [phone] Director: Giovani Stafford MD Parainfluenza 1 Not detected Normal [facility] Comment on above: Performed By: #### R CLOSER ON ####[address] [phone] Director: Giovani Stafford MD Parainfluenza 2 Not detected Normal [facility] Comment on above: Performed By: #### R CLOSER ON ####[address] [address] Lab Director: Giovani Stafford MD Parainfluenza 3 Not detected Normal [facility] Comment on above: Performed By: #### R CLOSER ON ####[address] [phone] Director: Giovani Stafford MD Parainfluenza 4 Not detected Normal [facility] Comment on above: Performed By: #### R CLOSER ON ####[address] [address] Lab Director: Giovani Stafford MD Resp Syncytial Virus Not detected Normal [facility] Comment on above: Performed By: #### R CLOSER ON ####[address] [phone] Director: Giovani Stafford MD Rhino/Enterovirus Detected Abnormal [facility] Comment on above: Performed By: #### R CLOSER ON ####[address] [phone] Director: Giovani Stafford MD SARS-CoV-2 (COVID-19) RNA JEFF+probe Ql (Unsp spec) Not detected Normal NOTDET [facility] Comment on above: Performed By: #### R CLOSER ON ####[facility] [place] [address] Lab Director: Giovani Stafford MD Source: .NASOPHARYNGEAL SWAB Normal [facility] Comment on above: Performed By: #### R CLOSER ON ####[address] [address] Lab Director: Giovani Stafford MD Specimen Rejectionon 024 Reason for rejection Unable to perform testing: Results suspect due to history of previous lab Normal [facility] Comment on above: Result Comment: resu lts. Performed By: #### R EJEC, LYTE, B12FOL, MG #### [facility] [employer] [address] [place] [address] Spare Hand: Giovani Stafford MD Source of sample .BLOOD Normal [facility] Comment on above: Performed By: #### R EJEC, LYTE, B12FOL, MG #### [facility] [place] [address] Spare Hand: Giovani Stafford MD Test ordered HH Normal [facility] Comment on above: Performed By: #### R EJEC, LYTE, B12FOL, MG #### [facility] [place] [address] Spare Hand: Giovani Stafford MD Transferrinon 06-26-2023 Transferrin [Mass/Vol] 92 mg/dL Low 200-360 [facility] Comment on above: Performed By: #### R EJEC, LYTE, B12FOL, MG #### [facility] [employer] [address] [place] [address] Spare Hand: Giovani Stafford MD Troponinon 06-26-2023 Troponin, High Sens 28 ng/L High 0-[address] [facility] Comment on above: Result Comment: High Sensitivity Troponin values cannot be compared with other Troponin methodologies. Performed By: #### R EJEC, LYTE, B12FOL, MG #### [facility] [address] [place] [address] Spare Hand: Giovani Stafford MD Troponin, High Sens 26 ng/L High 0-[address] [facility] Comment on above: Result Comment: High Sensitivity Troponin values cannot be compared with other Troponin methodologies. Performed By: #### C DP, BMPX, MG, SUYAPA #### [facility] [address] [place] [address] Spare Hand: Giovani Stafford MD Troponin, High Sens 31 ng/L High 0-[address] [facility] Comment on above: Result Comment: High Sensitivity Troponin values cannot be compared with other Troponin methodologies. Performed By: #### C DP, BMPX, MG, SUYAAP #### [facility] [employer] [address] [place] [address] Spare Hand: Giovani Stafford MD Type + Screenon 06-26-2023 Type + Screen Sample Expiration 06/29/2023,2359 Arm Band Number [id number] ABO/Rh(D) B POSITIVE Antibody Screen NEGATIVE Unit Number [id number] Blood Component Type Leukocyte Reduced Red Cell Unit Division 00 Status of Unit TRANSFUSED Transfusion Status OK TO TRANSFUSE Crossmatch Result COMPATIBLE Unit Number [id number] Blood Component Type Leukocyte Reduced Red Cell Unit Division 00 Status of Unit REL FROM ALLOC Transfusion Status OK TO TRANSFUSE Crossmatch Result COMPATIBLE Unit Number [id number] Blood Component Type Leukocyte Reduced Red Cell Unit Division 00 Status of Unit REL FROM ALLOC Transfusion Status OK TO TRANSFUSE Crossmatch Result COMPATIBLE Normal [facility] Comment on above: Performed By: #### C DP, BMPX, MG, SUYAPA #### [facility] [employer] [address] [place] [address] Spare Hand: Giovani Stafford MD UA w/Reflex Cultureon 2023 Bilirubin, SemiQt,Ur Negative Normal NEG [facility] Comment on above: Performed By: #### C DP, BMPX, MG, SUYAPA #### [address] [address] Spare Hand: Giovani Stafford MD Blood, Urine Negative Normal NEG [facility] Comment on above: Performed By: #### C DP, BMPX, MG, SUYAPA #### [address] [address] Spare Hand: Giovani Stafford MD Clarity (U) Clear Normal CLEAR [facility] Comment on above: Performed By: #### C DP, BMPX, MG, SUYAPA #### [address] [address] Spare Hand: Giovani Stafford MD Color (U) Yellow Normal YEL [facility] Comment on above: Performed By: #### C DP, BMPX, MG, SUYAPA #### [address] [address] Spare Hand: Giovani Stafford MD Glucose Ql (U) Negative Normal NEG [facility] Comment on above: Performed By: #### C DP, BMPX, MG, SUYAPA #### [address] [address] Spare Hand: Giovani Stafford MD Ketones Ql (U) SMALL Abnormal NEG [facility] Comment on above: Performed By: #### C DP, BMPX, MG, SUYAPA #### [address] [address] Spare Hand: Giovani Stafford MD Leukocyte esterase Test strip Ql (U) Negative Normal NEG [facility] Comment on above: Performed By: #### C DP, BMPX, MG, SUYAPA #### [address] [address] Spare Hand: Giovani Stafford MD Nitrite,Ur Negative Normal NEG [facility] Comment on above: Performed By: #### C DP, BMPX, MG, SUYAPA #### [address] [address] Spare Hand: Giovani Stafford MD PH,Ur 8.0 Normal 5.0-8.[address] [facility] Comment on above: Performed By: #### C DP, BMPX, MG, SUYAPA #### [address] [address] Spare Hand: Giovani Stafford MD Protein Ql (U) 1+ mg/dL Abnormal NEG [facility] Comment on above: Performed By: #### C DP, BMPX, MG, SUYAPA #### [address] [address] Spare Hand: Giovani Stafford MD Spec. [place],Ur 1.026 Normal 1.005-1.030 [facility] Comment on above: Performed By: #### C DP, BMPX, MG, SUYAPA #### [address] [address] Spare Hand: Giovani Stafford MD Urobilinogen,Ur Normal Normal 0.0-1.[address] [facility] Comment on above: Performed By: #### C DP, BMPX, MG, SUYAPA #### [address] [address] Spare Hand: Gioavni Stafford MD Urinalysis,Microon 4 Bacteria None Normal NONE [facility] Comment on above: Performed By: #### U MICAO, UAX ####[facility] [address] [place] [address] Lab Director: Giovani Stafford MD Casts 5 TO 10 HYALINE Normal 0-[address] [facility] Comment on above: Result Comment: Refe rence range defined for non-centrifuged specimen. Performed By: #### U MICAO, UAX ####[facility] [address] [place] [address] Lab Director: Giovani Stafford MD Epithelial cells LM Ql (Urine sed) 2 TO 5 Normal 0-[address] [facility] Comment on above: Performed By: #### U MICAO, UAX ####[facility] [address] [place] [address] Lab Director: Giovani Stafford MD Urine RBC's None Normal 0-[address] [facility] Comment on above: Result Comment: Refe rence range defined for non-centrifuged specimen. Performed By: #### U MICAO, UAX ####[facility] [address] [place] [address] Lab Director: Giovani Stafford MD Urine WBC's 0 TO 2 Normal 0-[address] [facility] Comment on above: Performed By: #### U MICAO, UAX ####[facility] [address] [place] [address] Lab Director: Giovani Stafford MD Vitamin D 25 OHon 06-26-2023 Vitamin D 25 OH 15.2 ng/mL Low >29.[address] [facility] Comment on above: Result Comment: Reference Range: Vitamin D status Range Deficiency <20 ng/mL Mild Deficiency 20-30 ng/mL Sufficiency 30-100 ng/mL Toxicity >100 ng/mL Performed By: #### R EJEC, LYTE, B12FOL, MG #### [facility] [employer] [address] [place] [address] Spare Hand: Giovani Stafford MD Albumin Levelon 01-25-2022 Albumin [Mass/Vol] 2.6 g/dL Low 3.2-5.5 [facility] Comment on above: Order Comment: Diagn osis: I48.0, E11.9, I10 Comment: [id number], LORENA RM113, , 01/19/22 Result Comment: PERF ORMED BY: [facility] [address] [place] [address] PATHOLOGIST ACTIVE DIRECTORY ENGINEER NICHOLE BOLDEN M.D. Performed By: #### D DIMER, BMP, BNP, HS TROP, CKMB, CK, CBC, PTT, PT #### [facility] [address] Albumin [Mass/volume] in Ser um or PlasmaOrdered By: Minh Kim on 01-25-2022 Albumin [Mass/Vol] 2.6 g/dL 3.2-5.5 [facility] Basic Metabolic Panelon 01-07 Anion gap [Moles/Vol] 12.5 mmol/L Normal 6.0-15.0 [facility] Comment on above: Order Comment: Diagn osis: I48.0, E11.9, I10 Comment: [id number] [facility], , 01/19/22 Performed By: #### D DIMER, BMP, BNP, HS TROP, CKMB, CK, CBC, PTT, PT #### [address] Calcium [Mass/Vol] 8.6 mg/dL Normal 8.2-10.2 [facility] Comment on above: Order Comment: Diagn osis: I48.0, E11.9, I10 Comment: [id number] Pringle RMFormerly [facility], , 01/19/22 Performed By: #### D DIMER, BMP, BNP, HS TROP, CKMB, CK, CBC, PTT, PT #### [facility] [address] Chloride [Moles/Vol] 90 mmol/L Low 95-114 [facility] Comment on above: Order Comment: Diagn osis: I48.0, E11.9, I10 Comment: [id number] Pringle RM113, , 01/19/22 Performed By: #### D DIMER, BMP, BNP, HS TROP, CKMB, CK, CBC, PTT, PT #### [facility] [address] CO2 [Moles/Vol] 30.8 mmol/L High 22.0-30.0 [facility] Comment on above: Order Comment: Diagn osis: I48.0, E11.9, I10 Comment: [id number], OGONTZ, RM113, , 01/19/22 Performed By: #### D DIMER, BMP, BNP, HS TROP, CKMB, CK, CBC, PTT, PT #### [facility] [address] Creatinine [Mass/Vol] 0.52 mg/dL Low 0.64-1.27 [facility] Comment on above: Order Comment: Diagn osis: I48.0, E11.9, I10 Comment: [id number], OGONTZ, RM113, , 01/19/22 Performed By: #### D DIMER, BMP, BNP, HS TROP, CKMB, CK, CBC, PTT, PT #### [facility] [address] [place] [address] Estimated GFR ( Uzma > 60 [facility] Comment on above: Order Comment: Diagn osis: I48.0, E11.9, I10 Comment: [id number], OGONTZ, RM113, , 01/19/22 Result Comment: GFR estimated reference range: According to KDOQI guidelines, <60 ml/min/1.73m2 is sufficient to diagnose a patient with chronic kidney disease. Performed By: #### D DIMER, BMP, BNP, HS TROP, CKMB, CK, CBC, PTT, PT #### [address] Estimated GFR (Non- Am > 60 [facility] Comment on above: Order Comment: Diagn osis: I48.0, E11.9, I10 Comment: [id number], OGONTZ, RM113, , 01/19/22 Performed By: #### D DIMER, BMP, BNP, HS TROP, CKMB, CK, CBC, PTT, PT #### [facility] [address] [place] [phone] [facility] Glucose [Mass/Vol] 118 mg/dL High 70-100 [facility] Comment on above: Order Comment: Diagn osis: I48.0, E11.9, I10 Comment: [id number], OGONTZ, RM113, , 01/19/22 Result Comment: [facility] Glucose Reference Range is dependent on time and content of last meal. Glucose of more than 200 mg/dL in a nonstressed, ambulatory subject supports the diagnosis of Diabetes Mellitus. ADA recommended reference range Performed By: #### D DIMER, BMP, BNP, HS TROP, CKMB, CK, CBC, PTT, PT #### [facility] [address] Potassium [Moles/Vol] 4.3 mmol/L Normal 3.5-5.1 [facility] Comment on above: Order Comment: Diagn osis: I48.0, E11.9, I10 Comment: [id number], LORENA, RM113, , 01/19/22 Performed By: #### D DIMER, BMP, BNP, HS TROP, CKMB, CK, CBC, PTT, PT #### [facility] [address] Sodium [Moles/Vol] 129 mmol/L Low 136-146 [facility] Comment on above: Order Comment: Diagn osis: I48.0, E11.9, I10 Comment: [id number], KAYCEEZ, RM113, , 01/19/22 Performed By: #### D DIMER, BMP, BNP, HS TROP, CKMB, CK, CBC, PTT, PT #### [address] Urea nitrogen [Mass/Vol] 11 mg/dL Normal 9-23 [facility] Comment on above: Order Comment: Diagn osis: I48.0, E11.9, I10 Comment: [id number], OGONTZ, RM113, , 01/19/22 Performed By: #### D DIMER, BMP, BNP, HS TROP, CKMB, CK, CBC, PTT, PT #### [facility] [address] Basophils Auto (Bld) [#/Vol] Ordered By: Minh Kim on 01-25-2022 Basophils (Bld) [#/Vol] 0.1 10*3/uL 0.0-0.2 [facility] Basophils/100 WBC Auto (Bld) Ordered By: Minh Kim on 01-25-2022 Basophils/100 WBC (Bld) 0.7 % . [facility] Blood hemoglobin measurement (mass/volume)Ordered By: Minh Kim on 01-25-2022 Hemoglobin (Bld) [Mass/Vol] 11.4 g/dL 13.0-17.0 [facility] Blood leukocytes automated c ount (number/volume)Ordered By: Minh Kim on 01-25-2022 WBC (Bld) [#/Vol] 8.2 10*3/uL 4.5-11.0 [facility] Complete Blood Count Auto Di ffon 01-25-2022 Basophils (Bld) [#/Vol] 0.1 10*3/uL Normal 0.0-0.2 [facility] Comment on above: Order Comment: Diagn osis: I48.0, E11.9, I10 Comment: [id number], LORENA RMMaranda, , 01/19/22 Result Comment: PERF ORMED BY: [place] [id number] PATHOLOGIST ACTIVE DIRECTORY ENGINEER NICHOLE BOLDEN M.D. Performed By: #### D DIMER, BMP, BNP, HS TROP, CKMB, CK, CBC, PTT, PT #### [facility] [address] Basophils/100 WBC (Bld) 0.7 % Normal . [facility] Comment on above: Order Comment: Diagn osis: I48.0, E11.9, I10 Comment: [id number], LORENA RMMaranda, , 01/19/22 Performed By: #### D DIMER, BMP, BNP, HS TROP, CKMB, CK, CBC, PTT, PT #### [facility] [address] Eosinophils (Bld) [#/Vol] 0.1 10*3/uL Normal 0.0-0.45 [facility] Comment on above: Order Comment: Diagn osis: I48.0, E11.9, I10 Comment: [id number], LORENA, RM113, , 01/19/22 Performed By: #### D DIMER, BMP, BNP, HS TROP, CKMB, CK, CBC, PTT, PT #### [address] Eosinophils/100 WBC (Bld) 0.9 % Normal . [facility] Comment on above: Order Comment: Diagn osis: I48.0, E11.9, I10 Comment: [id number], KAYCEE, [facility], , 01/19/22 Performed By: #### D DIMER, BMP, BNP, HS TROP, CKMB, CK, CBC, PTT, PT #### [address] Erythrocyte distribution width (RBC) [Ratio] 12.8 % Normal 12.0-14.8 [facility] Comment on above: Order Comment: Diagn osis: I48.0, E11.9, I10 Comment: [id number], LORENA, [facility], , 01/19/22 Performed By: #### D DIMER, BMP, BNP, HS TROP, CKMB, CK, CBC, PTT, PT #### [address] Hematocrit (Bld) [Volume fraction] 33.7 % Low 38.8-50.0 [facility] Comment on above: Order Comment: Diagn osis: I48.0, E11.9, I10 Comment: [id number], LORENA, [facility], , 01/19/22 Performed By: #### D DIMER, BMP, BNP, HS TROP, CKMB, CK, CBC, PTT, PT #### [address] Hemoglobin (Bld) [Mass/Vol] 11.4 g/dL Low 13.0-17.0 [facility] Comment on above: Order Comment: Diagn osis: I48.0, E11.9, I10 Comment: [id number], [facility], [facility], , 01/19/22 Performed By: #### D DIMER, BMP, BNP, HS TROP, CKMB, CK, CBC, PTT, PT #### [address] Lymphocytes (Bld) [#/Vol] 0.6 10*3/uL Low 1.00-4.8 [facility] Comment on above: Order Comment: Diagn osis: I48.0, E11.9, I10 Comment: [id number], LORENA, RMFormerly [facility], , 01/19/22 Performed By: #### D DIMER, BMP, BNP, HS TROP, CKMB, CK, CBC, PTT, PT #### [facility] [address] Lymphocytes/100 WBC (Bld) 7.6 % Normal . [facility] Comment on above: Order Comment: Diagn osis: I48.0, E11.9, I10 Comment: [id number], LORENA, [facility], , 01/19/22 Performed By: #### D DIMER, BMP, BNP, HS TROP, CKMB, CK, CBC, PTT, PT #### [address] MCH (RBC) [Entitic mass] 31.9 pg Normal 27.5-35.2 [facility] Comment on above: Order Comment: Diagn osis: I48.0, E11.9, I10 Comment: [id number], LORENA, [facility], , 01/19/22 Performed By: #### D DIMER, BMP, BNP, HS TROP, CKMB, CK, CBC, PTT, PT #### [address] MCV (RBC) [Entitic vol] 94.4 fL Normal 83.5-101 [facility] Comment on above: Order Comment: Diagn osis: I48.0, E11.9, I10 Comment: [id number], OGSOBEIDAZ, [facility], , 01/19/22 Performed By: #### D DIMER, BMP, BNP, HS TROP, CKMB, CK, CBC, PTT, PT #### [address] Mean Corpuscular HGB Conc 33.8 g/dL Normal 32.5-35.6 [facility] Comment on above: Order Comment: Diagn osis: I48.0, E11.9, I10 Comment: [id number], OGONTZ, RM113, , 01/19/22 Performed By: #### D DIMER, BMP, BNP, HS TROP, CKMB, CK, CBC, PTT, PT #### [facility] [address] [place] [phone] [place] Monocytes (Bld) [#/Vol] 0.9 10*3/uL High 0.0-0.8 [facility] Comment on above: Order Comment: Diagn osis: I48.0, E11.9, I10 Comment: [id number], OGONTZ, RM113, , 01/19/22 Performed By: #### D DIMER, BMP, BNP, HS TROP, CKMB, CK, CBC, PTT, PT #### [facility] [address] [place], [place] [phone] [facility] Monocytes/100 WBC (Bld) 10.7 % Normal . [facility] Comment on above: Order Comment: Diagn osis: I48.0, E11.9, I10 Comment: [id number], OGONTZ, RM113, , 01/19/22 Performed By: #### D DIMER, BMP, BNP, HS TROP, CKMB, CK, CBC, PTT, PT #### [facility] [address] [place] [address] [place] Neutrophils (Bld) [#/Vol] 6.6 10*3/uL Normal 1.8-7.7 [facility] Comment on above: Order Comment: Diagn osis: I48.0, E11.9, I10 Comment: [id number], OGONTZ, RM113, , 01/19/22 Performed By: #### D DIMER, BMP, BNP, HS TROP, CKMB, CK, CBC, PTT, PT #### [facility] [address] [place] [phone] [place] Neutrophils/100 WBC (Bld) 80.1 % Normal . [facility] Comment on above: Order Comment: Diagn osis: I48.0, E11.9, I10 Comment: [id number], OGONTZ, RM113, , 01/19/22 Performed By: #### D DIMER, BMP, BNP, HS TROP, CKMB, CK, CBC, PTT, PT #### [facility] [address] Nucleated RBC/100 WBC (Bld) [Ratio] 0.1 % Normal 0-0.5 [facility] Comment on above: Order Comment: Diagn osis: I48.0, E11.9, I10 Comment: [id number], OGSOBEIDAZ, RM113, , 01/19/22 Performed By: #### D DIMER, BMP, BNP, HS TROP, CKMB, CK, CBC, PTT, PT #### [facility] [address] Platelet mean volume (Bld) [Entitic vol] 9.0 fL Normal 6.6-10.1 [facility] Comment on above: Order Comment: Diagn osis: I48.0, E11.9, I10 Comment: [id number], KAYCEEZ, RM113, , 01/19/22 Performed By: #### D DIMER, BMP, BNP, HS TROP, CKMB, CK, CBC, PTT, PT #### [facility] [address] [place] [address] [place] Platelets (Bld) [#/Vol] 401 10*3/uL Normal 150-450 [facility] Comment on above: Order Comment: Diagn osis: I48.0, E11.9, I10 Comment: [id number], OGSOBEIDAZ, RM113, , 01/19/22 Performed By: #### D DIMER, BMP, BNP, HS TROP, CKMB, CK, CBC, PTT, PT #### [facility] [address] RBC (Bld) [#/Vol] 3.57 10*6/uL Low 3.90-5.60 [facility] Comment on above: Order Comment: Diagn osis: I48.0, E11.9, I10 Comment: [id number], OGONTZ, RM113, , 01/19/22 Performed By: #### D DIMER, BMP, BNP, HS TROP, CKMB, CK, CBC, PTT, PT #### [facility] [address] [place] [phone] [place] WBC (Bld) [#/Vol] 8.2 10*3/uL Normal 4.5-11.0 [facility] Comment on above: Order Comment: Diagn osis: I48.0, E11.9, I10 Comment: [id number], KAYCEEZ, RM113, HM, 01/19/22 Performed By: #### D DIMER, BMP, BNP, HS TROP, CKMB, CK, CBC, PTT, PT #### [facility] [address] [place] [phone] [facility] Creatinine and Glomerular fi ltration rate.predicted panel (S/P/Bld)Ordered By: Minh Kim on 01-25-2022 Creatinine [Mass/Vol] 0.52 mg/dL 0.64-1.27 [facility] Eosinophils Auto (Bld) [#/Vo l]Ordered By: Minh Kim on 01-25-2022 Eosinophils (Bld) [#/Vol] 0.1 10*3/uL 0.0-0.45 [facility] Eosinophils/100 WBC Auto (Bl d)Ordered By: Minh Kim on 01-25-2022 Eosinophils/100 WBC (Bld) 0.9 % . [facility] Erythrocyte distribution wid th Auto (RBC) [Ratio]Ordered By: Minh Kim on 01-25-2022 Erythrocyte distribution width (RBC) [Ratio] 12.8 % 12.0-14.8 [facility] Estimated glomerular filtrat ion rate (GFR) non- AmericanOrdered By: Minh Kim on 01-25-2022 GFR/1.73 sq M.predicted among non-blacks MDRD (S/P/Bld) [Vol rate/Area] > 60 mL/Min [facility] Hematocrit Auto (Bld) [Volum e fraction]Ordered By: Minh Kim on 01-25-2022 Hematocrit (Bld) [Volume fraction] 33.7 % 38.8-50.0 [facility] Laboratory - Hematology and Cell countsOrdered By: Minh Kim on 01-25-2022 Nucleated RBC/100 WBC (Bld) [Ratio] 0.1 % 0-0.5 [facility] Lymphocytes Auto (Bld) [#/Vo l]Ordered By: Minh Kim on 01-25-2022 Lymphocytes (Bld) [#/Vol] 0.6 10*3/uL 1.00-4.8 [facility] Lymphocytes/100 WBC Auto (Bl d)Ordered By: Minh Kim on 01-25-2022 Lymphocytes/100 WBC (Bld) 7.6 % . [facility] MCH Auto (RBC) [Entitic mass ]Ordered By: Minh Kim on 01-25-2022 MCH (RBC) [Entitic mass] 31.9 pg 27.5-35.2 [facility] MCHC Auto (RBC) [Mass/Vol]Or dered By: Minh Kim on 01-25-2022 MCHC (RBC) [Mass/Vol] 33.8 g/dL 32.5-35.6 [facility] MCV Auto (RBC) [Entitic vol] Ordered By: Minh Kim on 01-25-2022 MCV (RBC) [Entitic vol] 94.4 fL 83.5-101 [facility] Monocytes Auto (Bld) [#/Vol] Ordered By: Minh Kim on 01-25-2022 Monocytes (Bld) [#/Vol] 0.9 10*3/uL 0.0-0.8 [facility] Monocytes/100 WBC Auto (Bld) Ordered By: Minh Kim on 01-25-2022 Monocytes/100 WBC (Bld) 10.7 % . [facility] Neutrophils Auto (Bld) [#/Vo l]Ordered By: Minh Kim on 01-25-2022 Neutrophils (Bld) [#/Vol] 6.6 10*3/uL 1.8-7.7 [facility] Neutrophils/100 WBC Auto (Bl d)Ordered By: Minh Kim on 01-25-2022 Neutrophils/100 WBC (Bld) 80.1 % . [facility] No Panel InformationOrdered By: Minh Kim on 01-25-2022 Estimated GFR () > 60 mL/Min [facility] Comment on above: GFR estimated refere nce range: According to KDOQI guidelines, <60 ml/min/1.73m2 is sufficient to diagnose a patient with chronic kidney disease. Pharmacy Creatinine Clearance (Chem N/A [facility] Platelet mean volume Auto (B ld) [Entitic vol]Ordered By: Minh Kim on 01-25-2022 Platelet mean volume (Bld) [Entitic vol] 9.0 fL 6.6-10.1 [facility] Platelets Auto (Bld) [#/Vol] Ordered By: Minh Kim on 01-25-2022 Platelets (Bld) [#/Vol] 401 10*3/uL 150-450 [facility] RBC Auto (Bld) [#/Vol]Ordere d By: Minh Kim on 01-25-2022 RBC (Bld) [#/Vol] 3.57 10*6/uL 3.90-5.60 [facility] Serum or plasma anion gap de terminationOrdered By: Minh Kim on 01-25-2022 Anion gap [Moles/Vol] 12.5 mmol/L 6.0-15.0 [facility] Serum or plasma calcium babita urement (mass/volume)Ordered By: Minh Kim on 01-25-2022 Calcium [Mass/Vol] 8.6 mg/dL 8.2-10.2 [facility] Serum or plasma chloride sabrina surement (moles/volume)Ordered By: Minh Kim on 01-25-2022 Chloride [Moles/Vol] 90 mmol/L 95-114 [facility] Serum or plasma glucose babita urement (mass/volume)Ordered By: Minh Kim on 01-25-2022 Glucose [Mass/Vol] 118 mg/dL 70-100 [facility] Comment on above: ADA recommended refe rence range Random Glucose Reference Range is dependent on time and content of last meal. Glucose of more than 200 mg/dL in a nonstressed, ambulatory subject supports the diagnosis of Diabetes Mellitus. Serum or plasma potassium me asurement (moles/volume)Ordered By: Minh Kim on 01-25-2022 Potassium [Moles/Vol] 4.3 mmol/L 3.5-5.1 [facility] Serum or plasma sodium measu rement (moles/volume)Ordered By: Minh Kim on 01-25-2022 Sodium [Moles/Vol] 129 mmol/L 136-146 [facility] Serum or plasma total carbon dioxide measurement (moles/volume)Ordered By: Minh Kim on 01-25-2022 CO2 [Moles/Vol] 30.8 mmol/L 22.0-30.0 [facility] Serum or plasma urea nitroge n measurement (mass/volume)Ordered By: Minh Kim on 01-25-2022 Urea nitrogen [Mass/Vol] 11 mg/dL 01-28 [facility] A1C with Estimated Average G luon 01-11-2022 Glucose [Mass/Vol] 146 mg/dL Normal [facility] Comment on above: Order Comment: Diagn osis: D50.9, E11.9, E78.5 Comment: LORENA Contreras [id number], , 01/07/22 Result Comment: PERF ORMED BY: [place] [id number] PATHOLOGIST ACTIVE DIRECTORY ENGINEER NICHOLE BOLDEN M.D. Performed By: #### D DIMER, BMP, BNP, HS TROP, CKMB, CK, CBC, PTT, PT #### [facility] [address] HbA1c (Bld) [Mass fraction] 6.7 % High 4.3-5.6 [facility] Comment on above: Order Comment: Diagn osis: D50.9, E11.9, E78.5 Comment: LORENA Contreras [id number], , 01/07/22 Result Comment: Incr eased risk for diabetes: 5.7 - 6.4 diabetes: >6.4 glycemic control for adults with diabetes: <7.0 Performed By: #### D DIMER, BMP, BNP, HS TROP, CKMB, CK, CBC, PTT, PT #### [facility] [address] [place] [phone] [place] Albumin Levelon 01-11-2022 Albumin [Mass/Vol] 2.8 g/dL Low 3.2-5.5 [facility] Comment on above: Order Comment: Diagn osis: D50.9, E11.9, E78.5 Comment: LORENA Contreras RM113, , 01/07/22 Result Comment: PERF ORMED BY: [address] [id number] PATHOLOGIST ACTIVE DIRECTORY ENGINEER NICHOLE BOLDEN M.D. Performed By: #### D DIMER, BMP, BNP, HS TROP, CKMB, CK, CBC, PTT, PT #### [place] [phone] [facility] Automated basophil %Ordered By: Minh Kim on 01-11-2022 Basophils/100 WBC (Bld) 0.8 % Normal . [facility] Comment on above: Order Comment: Diagn osis: D50.9, E11.9, E78.5 Comment: Diane, TRAVIS CARRILLO, , 01/07/22 Performed By: #### D DIMER, BMP, BNP, HS TROP, CKMB, CK, CBC, PTT, PT #### [place] [id number] [facility] Automated basophil countOrde red By: Minh Kim on 01-11-2022 Basophils (Bld) [#/Vol] 0.1 10*3/uL Normal 0.0-0.2 [facility] Comment on above: Order Comment: Diagn osis: D50., E11., E78.5 Comment: LORENA Contreras RM113, , 01/07/22 Result Comment: PERF ORMED BY: [address] [id number] PATHOLOGIST ACTIVE DIRECTORY ENGINEER NICHOLE BOLDEN M.D. Performed By: #### D DIMER, BMP, BNP, HS TROP, CKMB, CK, CBC, PTT, PT #### [facility] [address] [place] [address] [facility] Automated blood lymphocyte c ount (number/volume)Ordered By: Minh Kim on 01-11-2022 Lymphocytes (Bld) [#/Vol] 0.6 10*3/uL Low 1.00-4.8 [facility] Comment on above: Order Comment: Diagn osis: D50.9, E11.9, E78.5 Comment: LORENA Contreras RM113, , 01/07/22 Performed By: #### D DIMER, BMP, BNP, HS TROP, CKMB, CK, CBC, PTT, PT #### [facility] [address] [place] [address] Automated blood lymphocyte c ount as percentage of total leukocytesOrdered By: Minh Kim on 01-11-2022 Lymphocytes/100 WBC (Bld) 8.0 % Normal . [facility] Comment on above: Order Comment: Diagn osis: D50.9, E11.9, E78.5 Comment: [id number], OGONTZ, RM113, , 01/07/22 Performed By: #### D DIMER, BMP, BNP, HS TROP, CKMB, CK, CBC, PTT, PT #### [address] Automated blood monocyte cou ntOrdered By: Minh Kim on 01-11-2022 Monocytes (Bld) [#/Vol] 1.1 10*3/uL High 0.0-0.8 [facility] Comment on above: Order Comment: Diagn osis: D50.9, E11.9, E78.5 Comment: [id number], OGSOBEIDAZ, RM113, , 01/07/22 Performed By: #### D DIMER, BMP, BNP, HS TROP, CKMB, CK, CBC, PTT, PT #### [address] Automated blood platelet cou nt (count/volume)Ordered By: Minh Kim on 01-11-2022 Platelets (Bld) [#/Vol] 383 10*3/uL Normal 150-450 [facility] Comment on above: Order Comment: Diagn osis: D50.9, E11.9, E78.5 Comment: [id number], OGONTZ, RM113, , 01/07/22 Performed By: #### D DIMER, BMP, BNP, HS TROP, CKMB, CK, CBC, PTT, PT #### [address] Automated blood platelet sabrina n volume measurementOrdered By: Minh Kim on 01-11-2022 Platelet mean volume (Bld) [Entitic vol] 9.0 fL Normal 6.6-10.1 [facility] Comment on above: Order Comment: Diagn osis: D50., E11., E78. Comment: [id number], OGSOBEIDAZ, RM113, , 01/07/22 Performed By: #### D DIMER, BMP, BNP, HS TROP, CKMB, CK, CBC, PTT, PT #### [address] Automated eosinophil %Ordere d By: Minh Kim on 01-11-2022 Eosinophils/100 WBC (Bld) 1.2 % Normal . [facility] Comment on above: Order Comment: Diagn osis: D50., ., E78. Comment: [id number], OGSOBEIDAZ, RM113, , 01/07/22 Performed By: #### D DIMER, BMP, BNP, HS TROP, CKMB, CK, CBC, PTT, PT #### [address] Automated eosinophil countOr dered By: Minh Kim on 01-11-2022 Eosinophils (Bld) [#/Vol] 0.1 10*3/uL Normal 0.0-0.45 [facility] Comment on above: Order Comment: Diagn osis: D5, ., E78. Comment: [id number], OGCORTNEY, RM113, , 01/07/22 Performed By: #### D DIMER, BMP, BNP, HS TROP, CKMB, CK, CBC, PTT, PT #### [address] Automated erythrocyte distri bution width ratioOrdered By: Minh Kim on 01-11-2022 Erythrocyte distribution width (RBC) [Ratio] 12.9 % Normal 12.0-14.8 [facility] Comment on above: Order Comment: Diagn osis: D50, E11., E78. Comment: [id number], OGONTZ, RM113, , 01/07/22 Performed By: #### D DIMER, BMP, BNP, HS TROP, CKMB, CK, CBC, PTT, PT #### [facility] [address] Automated erythrocyte mean c orpuscular hemoglobin (mass per erythrocyte)Ordered By: Minh Kim on 01-11-2022 MCH (RBC) [Entitic mass] 32.6 pg Normal 27.5-35.2 [facility] Comment on above: Order Comment: Diagn osis: D50.9, E11.9, E78.5 Comment: [id number], OGONTZ, RM113, , 01/07/22 Performed By: #### D DIMER, BMP, BNP, HS TROP, CKMB, CK, CBC, PTT, PT #### [facility] [address] Automated erythrocyte mean c orpuscular volumeOrdered By: Minh Kim on 01-11-2022 MCV (RBC) [Entitic vol] 96.5 fL Normal 83.5-101 [facility] Comment on above: Order Comment: Diagn osis: D50., E11., E78.5 Comment: [id number], OGONTZ, RM113, , 01/07/22 Performed By: #### D DIMER, BMP, BNP, HS TROP, CKMB, CK, CBC, PTT, PT #### [facility] [address] [place] [address] Automated monocyte %Ordered By: Minh Kim on 01-11-2022 Monocytes/100 WBC (Bld) 14.8 % Normal . [facility] Comment on above: Order Comment: Diagn osis: D50.9, E11.9, E78.5 Comment: [id number], OGONTZ, RM113, , 01/07/22 Performed By: #### D DIMER, BMP, BNP, HS TROP, CKMB, CK, CBC, PTT, PT #### [facility] [address] [place] [phone] [facility] Automated neutrophil %Ordere d By: Minh Kim on 01-11-2022 Neutrophils/100 WBC (Bld) 75.2 % Normal . [facility] Comment on above: Order Comment: Diagn osis: D50.9, E11.9, E78.5 Comment: [id number], OGONTZ, RM113, , 01/07/22 Performed By: #### D DIMER, BMP, BNP, HS TROP, CKMB, CK, CBC, PTT, PT #### [facility] [address] Basic Metabolic Panelon 09-0 Anion gap [Moles/Vol] 13.7 mmol/L Normal 6.0-15.0 [facility] Comment on above: Order Comment: Diagn osis: D50.9, E11.9, E78.5 Comment: [id number], OGONTZ, RM113, , 01/07/22 Performed By: #### D DIMER, BMP, BNP, HS TROP, CKMB, CK, CBC, PTT, PT #### [address] Calcium [Mass/Vol] 8.7 mg/dL Normal 8.2-10.2 [facility] Comment on above: Order Comment: Diagn osis: D50.9, E11.9, E78.5 Comment: [id number], OGONTZ, RM113, , 01/07/22 Performed By: #### D DIMER, BMP, BNP, HS TROP, CKMB, CK, CBC, PTT, PT #### [address] Chloride [Moles/Vol] 93 mmol/L Low 95-114 [facility] Comment on above: Order Comment: Diagn osis: D50.9, E11.9, E78.5 Comment: [id number], OGSOBEIDAZ, RM113, , 01/07/22 Performed By: #### D DIMER, BMP, BNP, HS TROP, CKMB, CK, CBC, PTT, PT #### [facility] [address] [place] [address] CO2 [Moles/Vol] 28.2 mmol/L Normal 22.0-30.0 [facility] Comment on above: Order Comment: Diagn osis: D50.9, E11.9, E78.5 Comment: [id number], OGONTZ, RM113, , 01/07/22 Performed By: #### D DIMER, BMP, BNP, HS TROP, CKMB, CK, CBC, PTT, PT #### [facility] [address] [place] [address] [facility] Creatinine [Mass/Vol] 0.55 mg/dL Low 0.64-1.27 [facility] Comment on above: Order Comment: Diagn osis: D50.9, E11.9, E78.5 Comment: [id number], TRAVIS CARRILLO, , 01/07/22 Performed By: #### D DIMER, BMP, BNP, HS TROP, CKMB, CK, CBC, PTT, PT #### [facility] [address] [place] [address] [facility] Estimated GFR ( Uzma > 60 [facility] Comment on above: Order Comment: Diagn osis: D50.9, E11.9, E78.5 Comment: Diane, TRAVIS CARRILLO, , 01/07/22 Result Comment: GFR estimated reference range: According to KDOQI guidelines, <60 ml/min/1.73m2 is sufficient to diagnose a patient with chronic kidney disease. Performed By: #### D DIMER, BMP, BNP, HS TROP, CKMB, CK, CBC, PTT, PT #### [facility] [address] [place] [phone] [facility] Estimated GFR (Non- Am > 60 [facility] Comment on above: Order Comment: Diagn osis: D50.9, E11.9, E78.5 Comment: [id number], TRAVIS CARRILLO, , 01/07/22 Performed By: #### D DIMER, BMP, BNP, HS TROP, CKMB, CK, CBC, PTT, PT #### [facility] [address] [place] [address] [facility] Glucose [Mass/Vol] 133 mg/dL High 70-100 [facility] Comment on above: Order Comment: Diagn osis: D50.9, E11.9, E78.5 Comment: [id number], LORENA RMMaranda, , 01/07/22 Result Comment: Brutus Glucose Reference Range is dependent on time and content of last meal. Glucose of more than 200 mg/dL in a nonstressed, ambulatory subject supports the diagnosis of Diabetes Mellitus. ADA recommended reference range Performed By: #### D DIMER, BMP, BNP, HS TROP, CKMB, CK, CBC, PTT, PT #### [facility] [address] Potassium [Moles/Vol] 3.9 mmol/L Normal 3.5-5.1 [facility] Comment on above: Order Comment: Diagn osis: D50.9, E11.9, E78.5 Comment: [id number], LORENA, RM113, , 01/07/22 Performed By: #### D DIMER, BMP, BNP, HS TROP, CKMB, CK, CBC, PTT, PT #### [facility] [address] Sodium [Moles/Vol] 131 mmol/L Low 136-146 [facility] Comment on above: Order Comment: Diagn osis: D50.9, E11.9, E78.5 Comment: [id number], LORENA RMMaranda, , 01/07/22 Performed By: #### D DIMER, BMP, BNP, HS TROP, CKMB, CK, CBC, PTT, PT #### [facility] [address] Urea nitrogen [Mass/Vol] 13 mg/dL Normal 9-23 [facility] Comment on above: Order Comment: Diagn osis: D50.9, E11.9, E78.5 Comment: [id number], LORENA, RMMaranda, , 01/07/22 Performed By: #### D DIMER, BMP, BNP, HS TROP, CKMB, CK, CBC, PTT, PT #### [facility] [address] [place] [phone] [facility] Blood erythrocytes automated count (number/volume)Ordered By: Minh Kim on 01-11-2022 RBC (Bld) [#/Vol] 3.47 10*6/uL Low 3.90-5.60 [facility] Comment on above: Order Comment: Diagn osis: D50.9, E11.9, E78.5 Comment: [id number], LORENA RM113, , 01/07/22 Performed By: #### D DIMER, BMP, BNP, HS TROP, CKMB, CK, CBC, PTT, PT #### [address] Blood hemoglobin measurement (mass/volume)Ordered By: Minh Kim on 01-11-2022 Hemoglobin (Bld) [Mass/Vol] 11.3 g/dL Low 13.0-17.0 [facility] Comment on above: Order Comment: Diagn osis: D50.9, E11.9, E78.5 Comment: [id number], OGONTZ, RM113, , 01/07/22 Performed By: #### D DIMER, BMP, BNP, HS TROP, CKMB, CK, CBC, PTT, PT #### [address] Blood leukocytes automated c ount (number/volume)Ordered By: Minh Kim on 01-11-2022 WBC (Bld) [#/Vol] 7.5 10*3/uL Normal 4.5-11.0 [facility] Comment on above: Order Comment: Diagn osis: D50.9, E11.9, E78.5 Comment: [id number], KAYCEEZ, RM113, , 01/07/22 Performed By: #### D DIMER, BMP, BNP, HS TROP, CKMB, CK, CBC, PTT, PT #### [address] Blood neutrophil count by au tomated method (number/volume)Ordered By: Minh Kim on 01-11-2022 Neutrophils (Bld) [#/Vol] 5.7 10*3/uL Normal 1.8-7.7 [facility] Comment on above: Order Comment: Diagn osis: D50.9, E11.9, E78.5 Comment: [id number], KAYCEEZ, RM113, , 01/07/22 Performed By: #### D DIMER, BMP, BNP, HS TROP, CKMB, CK, CBC, PTT, PT #### [address] Body fluid albumin measureme nt (mass/volume)Ordered By: Minh Kim on 01-11-2022 Albumin (Body fld) [Mass/Vol] 2.8 g/dL 3.2-5.5 [facility] Complete Blood Count Auto Di ffon 01-11-2022 Mean Corpuscular HGB Conc 33.8 g/dL Normal 32.5-35.6 [facility] Comment on above: Order Comment: Diagn osis: D50.9, E11.9, E78.5 Comment: [id number], LORENA, RM113, , 01/07/22 Performed By: #### D DIMER, BMP, BNP, HS TROP, CKMB, CK, CBC, PTT, PT #### [facility] [address] Complete Blood Count Auto Di ffOrdered By: Minh Kim on 01-11-2022 Nucleated RBC/100 WBC (Bld) [Ratio] 0.1 % Normal 0-0.5 [facility] Comment on above: Order Comment: Diagn osis: D50.9, E11.9, E78.5 Comment: [id number], LORENA, RM113, , 01/07/22 Performed By: #### D DIMER, BMP, BNP, HS TROP, CKMB, CK, CBC, PTT, PT #### [facility] [address] Creatinine and Glomerular fi ltration rate.predicted panel (S/P/Bld)Ordered By: Minh Kim on 01-11-2022 Creatinine [Mass/Vol] 0.55 mg/dL 0.64-1.27 [facility] Estimated glomerular filtrat ion rate (GFR) non- AmericanOrdered By: Minh Kim on 01-11-2022 GFR/1.73 sq M.predicted among non-blacks MDRD (S/P/Bld) [Vol rate/Area] > 60 mL/Min [facility] Glucose mean value [Mass/vol ume] in Blood Estimated from glycated hemoglobinOrdered By: Minh Kim on 01-11-2022 Average glucose Estimated from glycated hemoglobin (Bld) [Mass/Vol] 146 mg/dL [facility] Hematocrit [Volume Fraction] of Blood by Automated countOrdered By: Minh Kim on 01-11-2022 Hematocrit (Bld) [Volume fraction] 33.5 % Low 38.8-50.0 [facility] Comment on above: Order Comment: Diagn osis: D50.9, E11.9, E78.5 Comment: [id number], LORENA, RM113, HM, 01/07/22 Performed By: #### D DIMER, BMP, BNP, HS TROP, CKMB, CK, CBC, PTT, PT #### [facility] [address] Hemoglobin A1c percentageOrd ered By: Minh Kim on 01-11-2022 HbA1c (Bld) [Mass fraction] 6.7 % 4.3-5.6 [facility] Comment on above: Increased risk for d iabetes: 5.7 - 6.4 diabetes: >6.4 glycemic control for adults with diabetes: <7.0 MCHC Auto (RBC) [Mass/Vol]Or dered By: Minh Kim on 01-11-2022 MCHC (RBC) [Mass/Vol] 33.8 g/dL 32.5-35.6 [facility] No Panel InformationOrdered By: Minh Kim on 01-11-2022 Estimated GFR () > 60 mL/Min [facility] Comment on above: GFR estimated refere nce range: According to KDOQI guidelines, <60 ml/min/1.73m2 is sufficient to diagnose a patient with chronic kidney disease. Pharmacy Creatinine Clearance (Chem N/A [facility] Serum or plasma anion gap de terminationOrdered By: Minh Kim on 01-11-2022 Anion gap [Moles/Vol] 13.7 mmol/L 6.0-15.0 [facility] Serum or plasma calcium babita urement (mass/volume)Ordered By: Minh Kim on 01-11-2022 Calcium [Mass/Vol] 8.7 mg/dL 8.2-10.2 [facility] Serum or plasma chloride sabrina surement (moles/volume)Ordered By: Minh Kim on 01-11-2022 Chloride [Moles/Vol] 93 mmol/L 95-114 [facility] Serum or plasma glucose babita urement (mass/volume)Ordered By: Minh Kim on 01-11-2022 Glucose [Mass/Vol] 133 mg/dL 70-100 [facility] Comment on above: ADA recommended refe rence range Random Glucose Reference Range is dependent on time and content of last meal. Glucose of more than 200 mg/dL in a nonstressed, ambulatory subject supports the diagnosis of Diabetes Mellitus. Serum or plasma potassium me asurement (moles/volume)Ordered By: Minh Kim on 01-11-2022 Potassium [Moles/Vol] 3.9 mmol/L 3.5-5.1 [facility] Serum or plasma sodium measu rement (moles/volume)Ordered By: Minh Kim on 01-11-2022 Sodium [Moles/Vol] 131 mmol/L 136-146 [facility] Serum or plasma total carbon dioxide measurement (moles/volume)Ordered By: Minh Kim on 01-11-2022 CO2 [Moles/Vol] 28.2 mmol/L 22.0-30.0 [facility] Serum or plasma urea nitroge n measurement (mass/volume)Ordered By: Minh Kim on 01-11-2022 Urea nitrogen [Mass/Vol] 13 mg/dL 9-23 [facility] Bacterial blood cultureOrder ed By: Ronit Caruso on 01-06-2022 Bacteria identified Cx Nom (Bld) NO GROWTH 5 DAYS [facility] Glucose Glucometer (BldC) [M ass/Vol]Ordered By: Mohsen Muniz on 01-05-2022 Glucose [Mass/Vol] 147 mg/dL [facility] Comment on above: Random Glucose Refer ence Range is dependent on time and content of last meal. Glucose of more than 200 mg/dL in a nonstressed, ambulatory subject supports the diagnosis of Diabetes Mellitus. Glucose Poct Glucometerson 0 01-05-2022 Commemt1 Glu2: Cleaned Meter Normal [facility] Comment on above: Result Comment: PERF ORMED BY: [facility] [address] [place] [address] PATHOLOGIST ACTIVE DIRECTORY ENGINEER NICHOLE BOLDEN M.D. Performed By: #### D DIMER, BMP, BNP, HS TROP, CKMB, CK, CBC, PTT, PT #### [address] Glucose [Mass/Vol] 147 mg/dL Normal [facility] Comment on above: Result Comment: Brutus om Glucose Reference Range is dependent on time and content of last meal. Glucose of more than 200 mg/dL in a nonstressed, ambulatory subject supports the diagnosis of Diabetes Mellitus. Performed By: #### D DIMER, BMP, BNP, HS TROP, CKMB, CK, CBC, PTT, PT #### [address] Glucose [Mass/Vol] 153 mg/dL Normal [facility] Comment on above: Result Comment: Brutus om Glucose Reference Range is dependent on time and content of last meal. Glucose of more than 200 mg/dL in a nonstressed, ambulatory subject supports the diagnosis of Diabetes Mellitus. PERFORMED BY: [place] [id number] PATHOLOGIST ACTIVE DIRECTORY ENGINEER NICHOLE BOLDEN M.D. Performed By: #### D DIMER, BMP, BNP, HS TROP, CKMB, CK, CBC, PTT, PT #### [address] Glucose [Mass/Vol] 127 mg/dL Normal [facility] Comment on above: Result Comment: Brutus om Glucose Reference Range is dependent on time and content of last meal. Glucose of more than 200 mg/dL in a nonstressed, ambulatory subject supports the diagnosis of Diabetes Mellitus. PERFORMED BY: [place] [id number] PATHOLOGIST ACTIVE DIRECTORY ENGINEER NICHOLE BOLDEN M.D. Performed By: #### D DIMER, BMP, BNP, HS TROP, CKMB, CK, CBC, PTT, PT #### [address] No Panel InformationOrdered By: Mohsen Muniz on 01-05-2022 Bedside Glucose Comment Glu2: cleaned meter [facility] Albumin [Mass/volume] in Ser um or PlasmaOrdered By: Mohsen Muniz on 01-04-2022 Albumin [Mass/Vol] 3.0 g/dL 3.2-5.5 [facility] Basophils Auto (Bld) [#/Vol] Ordered By: Mohsen Ionbaldo on 01-04-2022 Basophils (Bld) [#/Vol] 0.0 10*3/uL 0.0-0.2 [facility] Basophils/100 WBC Auto (Bld) Ordered By: Mohsen Doscottbaldo on 01-04-2022 Basophils/100 WBC (Bld) 0.5 % . [facility] Blood hemoglobin measurement (mass/volume)Ordered By: [facility] on 01-04-2022 Hemoglobin (Bld) [Mass/Vol] 12.3 g/dL 13.0-17.0 [facility] Blood leukocytes automated c ount (number/volume)Ordered By: Mohsenronit Muniz on 01-04-2022 WBC (Bld) [#/Vol] 6.1 10*3/uL 4.5-11.0 [facility] Complete Blood Count Auto Di ffon 01-04-2022 Basophils (Bld) [#/Vol] 0.0 10*3/uL Normal 0.0-0.2 [facility] Comment on above: Result Comment: PERF ORMED BY: [place] [id number] PATHOLOGIST ACTIVE DIRECTORY ENGINEER NICHOLE BOLDEN M.D. Performed By: #### D DIMER, BMP, BNP, HS TROP, CKMB, CK, CBC, PTT, PT #### [facility] [address] Basophils/100 WBC (Bld) 0.5 % Normal . [facility] Comment on above: Performed By: #### D DIMER, BMP, BNP, HS TROP, CKMB, CK, CBC, PTT, PT #### [facility] [address] Eosinophils (Bld) [#/Vol] 0.1 10*3/uL Normal 0.0-0.45 [facility] Comment on above: Performed By: #### D DIMER, BMP, BNP, HS TROP, CKMB, CK, CBC, PTT, PT #### [address] Eosinophils/100 WBC (Bld) 2.3 % Normal . [facility] Comment on above: Performed By: #### D DIMER, BMP, BNP, HS TROP, CKMB, CK, CBC, PTT, PT #### [address] Erythrocyte distribution width (RBC) [Ratio] 13.2 % Normal 12.0-14.8 [facility] Comment on above: Performed By: #### D DIMER, BMP, BNP, HS TROP, CKMB, CK, CBC, PTT, PT #### [address] Hematocrit (Bld) [Volume fraction] 36.2 % Low 38.8-50.0 [facility] Comment on above: Performed By: #### D DIMER, BMP, BNP, HS TROP, CKMB, CK, CBC, PTT, PT #### [address] Hemoglobin (Bld) [Mass/Vol] 12.3 g/dL Low 13.0-17.0 [facility] Comment on above: Performed By: #### D DIMER, BMP, BNP, HS TROP, CKMB, CK, CBC, PTT, PT #### [address] Lymphocytes (Bld) [#/Vol] 0.5 10*3/uL Low 1.00-4.8 [facility] Comment on above: Performed By: #### D DIMER, BMP, BNP, HS TROP, CKMB, CK, CBC, PTT, PT #### [address] Lymphocytes/100 WBC (Bld) 8.6 % Normal . [facility] Comment on above: Performed By: #### D DIMER, BMP, BNP, HS TROP, CKMB, CK, CBC, PTT, PT #### [address] [place] [address] [place] MCH (RBC) [Entitic mass] 32.9 pg Normal 27.5-35.2 [facility] Comment on above: Performed By: #### D DIMER, BMP, BNP, HS TROP, CKMB, CK, CBC, PTT, PT #### [address] MCV (RBC) [Entitic vol] 96.7 fL Normal 83.5-101 [facility] Comment on above: Performed By: #### D DIMER, BMP, BNP, HS TROP, CKMB, CK, CBC, PTT, PT #### [address] Mean Corpuscular HGB Conc 34.0 g/dL Normal 32.5-35.6 [facility] Comment on above: Performed By: #### D DIMER, BMP, BNP, HS TROP, CKMB, CK, CBC, PTT, PT #### [address] Monocytes (Bld) [#/Vol] 0.8 10*3/uL Normal 0.0-0.8 [facility] Comment on above: Performed By: #### D DIMER, BMP, BNP, HS TROP, CKMB, CK, CBC, PTT, PT #### [address] Monocytes/100 WBC (Bld) 12.6 % Normal . [facility] Comment on above: Performed By: #### D DIMER, BMP, BNP, HS TROP, CKMB, CK, CBC, PTT, PT #### [address] Neutrophils (Bld) [#/Vol] 4.6 10*3/uL Normal 1.8-7.7 [facility] Comment on above: Performed By: #### D DIMER, BMP, BNP, HS TROP, CKMB, CK, CBC, PTT, PT #### [address] Neutrophils/100 WBC (Bld) 76.0 % Normal . [facility] Comment on above: Performed By: #### D DIMER, BMP, BNP, HS TROP, CKMB, CK, CBC, PTT, PT #### [address] Nucleated RBC/100 WBC (Bld) [Ratio] 0.0 % Normal 0-0.5 [facility] Comment on above: Performed By: #### D DIMER, BMP, BNP, HS TROP, CKMB, CK, CBC, PTT, PT #### [address] Platelet mean volume (Bld) [Entitic vol] 10.6 fL High 6.6-10.1 [facility] Comment on above: Performed By: #### D DIMER, BMP, BNP, HS TROP, CKMB, CK, CBC, PTT, PT #### [address] Platelets (Bld) [#/Vol] 214 10*3/uL Normal 150-450 [facility] Comment on above: Performed By: #### D DIMER, BMP, BNP, HS TROP, CKMB, CK, CBC, PTT, PT #### [address] RBC (Bld) [#/Vol] 3.74 10*6/uL Low 3.90-5.60 [facility] Comment on above: Performed By: #### D DIMER, BMP, BNP, HS TROP, CKMB, CK, CBC, PTT, PT #### [address] WBC (Bld) [#/Vol] 6.1 10*3/uL Normal 4.5-11.0 [facility] Comment on above: Performed By: #### D DIMER, BMP, BNP, HS TROP, CKMB, CK, CBC, PTT, PT #### [address] Comprehensive Metabolic Pane ritika 01-04-2022 Albumin [Mass/Vol] 3.0 g/dL Low 3.2-5.5 [facility] Comment on above: Order Comment: HEMOL YZED-PLEASE REDRAW. MLG Performed By: #### D DIMER, BMP, BNP, HS TROP, CKMB, CK, CBC, PTT, PT #### [address] Albumin/Globulin [Mass ratio] 0.9 {ratio} Normal [facility] Comment on above: Order Comment: HEMOL YZED-PLEASE REDRAW. MLG Performed By: #### D DIMER, BMP, BNP, HS TROP, CKMB, CK, CBC, PTT, PT #### [address] ALP [Catalytic activity/Vol] 44 U/L Normal 32-92 [facility] Comment on above: Order Comment: HEMOL YZED-PLEASE REDRAW. MLG Performed By: #### D DIMER, BMP, BNP, HS TROP, CKMB, CK, CBC, PTT, PT #### [address] ALT [Catalytic activity/Vol] 11 U/L Normal 10-60 [facility] Comment on above: Order Comment: HEMOL YZED-PLEASE REDRAW. MLG Performed By: #### D DIMER, BMP, BNP, HS TROP, CKMB, CK, CBC, PTT, PT #### [address] Anion gap [Moles/Vol] 12.2 mmol/L Normal 6.0-15.0 [facility] Comment on above: Order Comment: HEMOL YZED-PLEASE REDRAW. MLG Performed By: #### D DIMER, BMP, BNP, HS TROP, CKMB, CK, CBC, PTT, PT #### [address] AST [Catalytic activity/Vol] 14 U/L Normal 10-42 [facility] Comment on above: Order Comment: HEMOL YZED-PLEASE REDRAW. MLG Performed By: #### D DIMER, BMP, BNP, HS TROP, CKMB, CK, CBC, PTT, PT #### [place] [id number] [place] Bilirubin [Mass/Vol] 0.9 mg/dL Normal 0.3-1.2 [facility] Comment on above: Order Comment: HEMOL YZED-PLEASE REDRAW. MLG Performed By: #### D DIMER, BMP, BNP, HS TROP, CKMB, CK, CBC, PTT, PT #### [facility] [address] Calcium [Mass/Vol] 8.6 mg/dL Normal 8.2-10.2 [facility] Comment on above: Order Comment: HEMOL YZED-PLEASE REDRAW. MLG Performed By: #### D DIMER, BMP, BNP, HS TROP, CKMB, CK, CBC, PTT, PT #### [facility] [address] Chloride [Moles/Vol] 94 mmol/L Low 95-114 [facility] Comment on above: Order Comment: HEMOL YZED-PLEASE REDRAW. MLG Performed By: #### D DIMER, BMP, BNP, HS TROP, CKMB, CK, CBC, PTT, PT #### [facility] [address] CO2 [Moles/Vol] 28.6 mmol/L Normal 22.0-30.0 [facility] Comment on above: Order Comment: HEMOL YZED-PLEASE REDRAW. MLG Performed By: #### D DIMER, BMP, BNP, HS TROP, CKMB, CK, CBC, PTT, PT #### [facility] [address] Creatinine [Mass/Vol] 0.56 mg/dL Low 0.64-1.27 [facility] Comment on above: Order Comment: HEMOL YZED-PLEASE REDRAW. MLG Performed By: #### D DIMER, BMP, BNP, HS TROP, CKMB, CK, CBC, PTT, PT #### [facility] [address] Creatinine Clr Calc Pharmacy 62.94 Normal [facility] Comment on above: Order Comment: HEMOL YZED-PLEASE REDRAW. MLG Performed By: #### D DIMER, BMP, BNP, HS TROP, CKMB, CK, CBC, PTT, PT #### [facility] [address] Estimated GFR ( [place] > 60 [facility] Comment on above: Order Comment: HEMOL YZED-PLEASE REDRAW. MLG Result Comment: GFR estimated reference range: According to KDOQI guidelines, <60 ml/min/1.73m2 is sufficient to diagnose a patient with chronic kidney disease. Performed By: #### D DIMER, BMP, BNP, HS TROP, CKMB, CK, CBC, PTT, PT #### [facility] [address] Estimated GFR (Non- Am > 60 [facility] Comment on above: Order Comment: HEMOL YZED-PLEASE REDRAW. MLG Performed By: #### D DIMER, BMP, BNP, HS TROP, CKMB, CK, CBC, PTT, PT #### [address] Globulin (S) [Mass/Vol] 3.2 g/dL Normal [facility] Comment on above: Order Comment: HEMOL YZED-PLEASE REDRAW. MLG Performed By: #### D DIMER, BMP, BNP, HS TROP, CKMB, CK, CBC, PTT, PT #### [address] Glucose [Mass/Vol] 124 mg/dL High 70-100 [facility] Comment on above: Order Comment: HEMOL YZED-PLEASE REDRAW. MLG Result Comment: Brutus Glucose Reference Range is dependent on time and content of last meal. Glucose of more than 200 mg/dL in a nonstressed, ambulatory subject supports the diagnosis of Diabetes Mellitus. ADA recommended reference range Performed By: #### D DIMER, BMP, BNP, HS TROP, CKMB, CK, CBC, PTT, PT #### [facility] [address] Potassium [Moles/Vol] 3.8 mmol/L Normal 3.5-5.1 [facility] Comment on above: Order Comment: HEMOL YZED-PLEASE REDRAW. MLG Performed By: #### D DIMER, BMP, BNP, HS TROP, CKMB, CK, CBC, PTT, PT #### [facility] [address] Protein [Mass/Vol] 6.2 g/dL Normal 6.1-7.9 [facility] Comment on above: Order Comment: HEMOL YZED-PLEASE REDRAW. MLG Performed By: #### D DIMER, BMP, BNP, HS TROP, CKMB, CK, CBC, PTT, PT #### [facility] [address] Sodium [Moles/Vol] 131 mmol/L Low 136-146 [facility] Comment on above: Order Comment: HEMOL YZED-PLEASE REDRAW. MLG Performed By: #### D DIMER, BMP, BNP, HS TROP, CKMB, CK, CBC, PTT, PT #### [facility] [address] Urea nitrogen [Mass/Vol] 14 mg/dL Normal 9-23 [facility] Comment on above: Order Comment: HEMOL YZED-PLEASE REDRAW. MLG Performed By: #### D DIMER, BMP, BNP, HS TROP, CKMB, CK, CBC, PTT, PT #### [facility] [address] [place] [address] [place] Creatinine and Glomerular fi ltration rate.predicted panel (S/P/Bld)Ordered By: Mohsen Muniz on 01-04-2022 Creatinine [Mass/Vol] 0.56 mg/dL 0.64-1.27 [facility] Eosinophils Auto (Bld) [#/Vo l]Ordered By: Mohsen Muniz on 01-04-2022 Eosinophils (Bld) [#/Vol] 0.1 10*3/uL 0.0-0.45 [facility] Eosinophils/100 WBC Auto (Bl d)Ordered By: Mohsen Muniz on 01-04-2022 Eosinophils/100 WBC (Bld) 2.3 % . [facility] Erythrocyte distribution wid th Auto (RBC) [Ratio]Ordered By: Mohsen Muniz on 01-04-2022 Erythrocyte distribution width (RBC) [Ratio] 13.2 % 12.0-14.8 [facility] Estimated glomerular filtrat ion rate (GFR) non- AmericanOrdered By: Mohsenwarren Muniz on 01-04-2022 GFR/1.73 sq M.predicted among non-blacks MDRD (S/P/Bld) [Vol rate/Area] > 60 mL/Min [facility] Folate [Mass/volume] in Seru m or PlasmaOrdered By: Mohsen [facility] on 01-04-2022 Folate [Mass/Vol] 15.7 ng/mL >5.9 [facility] Comment on above: Folate reference ran ge: >5.9 ng/ml The WHO technical consultation on folate and vitamin b12 deficiencies has determined that folate concentrations less than 4 ng/ml are considered deficient. Globulin Calc (S) [Mass/Vol] Ordered By: Mohsen Muniz on 01-04-2022 Globulin (S) [Mass/Vol] 3.2 g/dL F [facility] Glucose Poct Glucometerson 0 01-04-2022 Glucose [Mass/Vol] 121 mg/dL Normal [facility] Comment on above: Result Comment: [facility] Glucose Reference Range is dependent on time and content of last meal. Glucose of more than 200 mg/dL in a nonstressed, ambulatory subject supports the diagnosis of Diabetes Mellitus. PERFORMED BY: [place] [id number] PATHOLOGIST ACTIVE DIRECTORY ENGINEER NICHOLE BOLDEN M.D. Performed By: #### D DIMER, BMP, BNP, HS TROP, CKMB, CK, CBC, PTT, PT #### [facility] [address] Glucose [Mass/Vol] 135 mg/dL Normal [facility] Comment on above: Result Comment: [facility] Glucose Reference Range is dependent on time and content of last meal. Glucose of more than 200 mg/dL in a nonstressed, ambulatory subject supports the diagnosis of Diabetes Mellitus. PERFORMED BY: [address] [place] [address] PATHOLOGIST ACTIVE DIRECTORY ENGINEER NICHOLE BOLDEN M.D. Performed By: #### D DIMER, BMP, BNP, HS TROP, CKMB, CK, CBC, PTT, PT #### [address] Glucose [Mass/Vol] 177 mg/dL Normal [facility] Comment on above: Result Comment: Brutus om Glucose Reference Range is dependent on time and content of last meal. Glucose of more than 200 mg/dL in a nonstressed, ambulatory subject supports the diagnosis of Diabetes Mellitus. PERFORMED BY: [place] [id number] PATHOLOGIST ACTIVE DIRECTORY ENGINEER NICHOLE BOLDEN M.D. Performed By: #### D DIMER, BMP, BNP, HS TROP, CKMB, CK, CBC, PTT, PT #### [address] Glucose [Mass/Vol] 119 mg/dL Normal [facility] Comment on above: Result Comment: Brutus om Glucose Reference Range is dependent on time and content of last meal. Glucose of more than 200 mg/dL in a nonstressed, ambulatory subject supports the diagnosis of Diabetes Mellitus. PERFORMED BY: [place] [id number] PATHOLOGIST ACTIVE DIRECTORY ENGINEER NICHOLE BOLDEN M.D. Performed By: #### D DIMER, BMP, BNP, HS TROP, CKMB, CK, CBC, PTT, PT #### [address] Hematocrit Auto (Bld) [Volum e fraction]Ordered By: Mohsen Muniz on 01-04-2022 Hematocrit (Bld) [Volume fraction] 36.2 % 38.8-50.0 [facility] Laboratory - Chemistry and C hemistry - challengeOrdered By: Mohsen Muniz on 01-04-2022 Cobalamin (Vitamin B12) [Mass/Vol] 89 pg/mL 180-914 [facility] - Hematology and Cell countsOrdered By: Mohsen Muniz on 01-04-2022 Nucleated RBC/100 WBC (Bld) [Ratio] 0.0 % 0-0.5 [facility] Lymphocytes Auto (Bld) [#/Vo l]Ordered By: Mohsen Tobiasamekpor on 01-04-2022 Lymphocytes (Bld) [#/Vol] 0.5 10*3/uL 1.00-4.8 [facility] Lymphocytes/100 WBC Auto (Bl d)Ordered By: Mohsen Tobiasamekpor on 01-04-2022 Lymphocytes/100 WBC (Bld) 8.6 % . [facility] MCH Auto (RBC) [Entitic mass ]Ordered By: Mohsen Castroor on 01-04-2022 MCH (RBC) [Entitic mass] 32.9 pg 27.5-35.2 [facility] MCHC Auto (RBC) [Mass/Vol]Or dered By: Mohsen Tobiasamekpor on 01-04-2022 MCHC (RBC) [Mass/Vol] 34.0 g/dL 32.5-35.6 [facility] MCV Auto (RBC) [Entitic vol] Ordered By: Mohsen Castroor on 01-04-2022 MCV (RBC) [Entitic vol] 96.7 fL 83.5-101 F [facility] Monocytes Auto (Bld) [#/Vol] Ordered By: Mohsen Tobiasamekpor on 01-04-2022 Monocytes (Bld) [#/Vol] 0.8 10*3/uL 0.0-0.8 [facility] Monocytes/100 WBC Auto (Bld) Ordered By: Mohsen Tobiasamekpor on 01-04-2022 Monocytes/100 WBC (Bld) 12.6 % . [facility] Neutrophils Auto (Bld) [#/Vo l]Ordered By: Mohsen Doamekpor on 01-04-2022 Neutrophils (Bld) [#/Vol] 4.6 10*3/uL 1.8-7.7 [facility] Neutrophils/100 WBC Auto (Bl d)Ordered By: Mohsen Lemonkpor on 01-04-2022 Neutrophils/100 WBC (Bld) 76.0 % . [facility] No Panel InformationOrdered By: Mohsen Muniz on 01-04-2022 25-Hydroxy Vitamin D Total 60.5 ng/mL 30-100 [facility] Comment on above: VITAMIN D STATUS 25( [place])VITAMIN D RANGE (ng/mL) Deficient <20 Insufficient 20 to <30 Sufficient 30 to 100 Reference: Madi MF,Luis E NC, Josué MIGUEL, et al. Evaluation,treatment, and prevention of vitamin D deficiency; an Endocrine Society clinical practice guideline. JCEM. 2010; 96(7):1911-30. Estimated GFR () > 60 mL/Min [facility] Comment on above: GFR estimated refere nce range: According to KDOQI guidelines, <60 ml/min/1.73m2 is sufficient to diagnose a patient with chronic kidney disease. Pharmacy Creatinine Clearance (Chem 62.94 [facility] Platelet mean volume Auto (B ld) [Entitic vol]Ordered By: Mohsen Muniz on 01-04-2022 Platelet mean volume (Bld) [Entitic vol] 10.6 fL 6.6-10.1 [facility] Platelets Auto (Bld) [#/Vol] Ordered By: Mohsen Muniz on 01-04-2022 Platelets (Bld) [#/Vol] 214 10*3/uL 150-450 [facility] Protein [Mass/volume] in Ser um or PlasmaOrdered By: Mohsen Muniz on 01-04-2022 Protein [Mass/Vol] 6.2 g/dL 6.1-7.9 [facility] RBC Auto (Bld) [#/Vol]Ordere d By: Mohsen Muniz on 01-04-2022 RBC (Bld) [#/Vol] 3.74 10*6/uL 3.90-5.60 [facility] Serum or plasma alanine cortez otransferase measurement without P-5'-P (enzymatic activiOrdered By: Mohsen Muniz on 01-04-2022 ALT No additional P-5'-P [Catalytic activity/Vol] 11 U/L 10-60 [facility] Serum or plasma albumin/glob ulin mass ratioOrdered By: Mohsen Muniz on 01-04-2022 Albumin/Globulin [Mass ratio] 0.9 {ratio} [facility] Serum or plasma alkaline suyapa sphatase measurement (enzymatic activity/volume)Ordered By: Mohsen Muniz on 01-04-2022 ALP [Catalytic activity/Vol] 44 U/L 32-92 [facility] Serum or plasma anion gap de terminationOrdered By: Mohsen Muniz on 01-04-2022 Anion gap [Moles/Vol] 12.2 mmol/L 6.0-15.0 [facility] Serum or plasma aspartate am inotransferase measurement (enzymatic activity/volume)Ordered By: Mohsen Muinz on 01-04-2022 AST [Catalytic activity/Vol] 14 U/L 10-42 [facility] Serum or plasma calcium babita urement (mass/volume)Ordered By: Mohsen Muniz on 01-04-2022 Calcium [Mass/Vol] 8.6 mg/dL 8.2-10.2 [facility] Serum or plasma chloride sabrina surement (moles/volume)Ordered By: Mohsen Muniz on 01-04-2022 Chloride [Moles/Vol] 94 mmol/L 95-114 [facility] Serum or plasma glucose babita urement (mass/volume)Ordered By: Mohsen Muniz on 01-04-2022 Glucose [Mass/Vol] 124 mg/dL 70-100 [facility] Comment on above: ADA recommended refe rence range Random Glucose Reference Range is dependent on time and content of last meal. Glucose of more than 200 mg/dL in a nonstressed, ambulatory subject supports the diagnosis of Diabetes Mellitus. Serum or plasma potassium me asurement (moles/volume)Ordered By: Mohsen Muniz on 01-04-2022 Potassium [Moles/Vol] 3.8 mmol/L 3.5-5.1 [facility] Serum or plasma sodium measu rement (moles/volume)Ordered By: Mohsen Muniz on 01-04-2022 Sodium [Moles/Vol] 131 mmol/L 136-146 [facility] Serum or plasma total biliru bin measurement (mass/volume)Ordered By: Mohsen Muniz on 01-04-2022 Bilirubin [Mass/Vol] 0.9 mg/dL 0.3-1.2 [facility] Serum or plasma total carbon dioxide measurement (moles/volume)Ordered By: Mohsen Muniz on 01-04-2022 CO2 [Moles/Vol] 28.6 mmol/L 22.0-30.0 [facility] Serum or plasma urea nitroge n measurement (mass/volume)Ordered By: Mohsen Muniz on 01-04-2022 Urea nitrogen [Mass/Vol] 14 mg/dL 01-28 [facility] TSH DL <= 0.005 mIU/L QnOrde red By: Mohsen Muniz on 01-04-2022 TSH Qn 2.07 m[IU]/L 0.45-5.33 [facility] Thyroid Stim Hormone w/Rflxo n 01-04-2022 Thyroid Stim Hormone w/Rflx 2.07 u[iU]/mL Normal 0.45-5.33 [facility] Comment on above: Order Comment: HEMOL YZED-PLEASE REDRAW. MLG Performed By: #### D DIMER, BMP, BNP, HS TROP, CKMB, CK, CBC, PTT, PT #### [facility] [address] Vit. B12/Folate Profileon Cobalamin (Vitamin B12) [Mass/Vol] 89 pg/mL Low 180-914 [facility] Comment on above: Order Comment: HEMOL YZED-PLEASE REDRAW. MLG Performed By: #### D DIMER, BMP, BNP, HS TROP, CKMB, CK, CBC, PTT, PT #### [facility] [address] [place] [address] [place] Folate 15.7 ng/mL Normal >5.9 [facility] Comment on above: Order Comment: HEMOL YZED-PLEASE REDRAW. MLG Result Comment: Mercedes te reference range: >5.9 ng/ml The WHO technical consultation on folate and vitamin b12 deficiencies has determined that folate concentrations less than 4 ng/ml are considered deficient. Performed By: #### D DIMER, BMP, BNP, HS TROP, CKMB, CK, CBC, PTT, PT #### [facility] [address] [place], [place] [id number] [facility] Vitamin D 25 Hydroxy Totalon 01-04-2022 Vitamin D 25 Hydroxy Total 60.5 ng/mL Normal 30-100 [facility] Comment on above: Order Comment: HEMOL YZED-PLEASE REDRAW. MLG Result Comment: RUDY MIN D STATUS 25(OH)VITAMIN D RANGE (ng/mL) Deficient <20 Insufficient 20 to <30 Sufficient 30 to 100 Reference: Mdai MF,Luis E NC, Josué MIGUEL, et al. Evaluation,treatment, and prevention of vitamin D deficiency; an Endocrine Society clinical practice guideline. JCEM. 2010; 96(7):1911-30. PERFORMED BY: [place] [id number] PATHOLOGIST ACTIVE DIRECTORY ENGINEER NICHOLE BOLDEN M.D. Performed By: #### D DIMER, BMP, BNP, HS TROP, CKMB, CK, CBC, PTT, PT #### [place] [id number] [facility] ECG 12 lead ECGon 01-03-2022 ECG 12 lead ECG [facility] [place] [address] Electrocardiograph Report Signed Patient: Esa Leavitt MR#: [id number] 623 : 1935 Acct:[id number] Age/Sex: 86 / M ADM Date: 01/01/22 Loc: Room: [address] [place] [address] Type: DIS IN Attending Dr: Mohsen Muniz [...] MUS Signed By Brooks Landaverde DO 01/03 Normal [facility] Glucose Poct Glucometerson 0 01-03-2022 Glucose [Mass/Vol] 241 mg/dL Normal [facility] Comment on above: Result Comment: [facility] Glucose Reference Range is dependent on time and content of last meal. Glucose of more than 200 mg/dL in a nonstressed, ambulatory subject supports the diagnosis of Diabetes Mellitus. PERFORMED BY: [place] [id number] PATHOLOGIST ACTIVE DIRECTORY ENGINEER NICHOLE BOLDEN M.D. Performed By: #### D DIMER, BMP, BNP, HS TROP, CKMB, CK, CBC, PTT, PT #### [address] Commemt1 Glu2: Cleaned Meter Normal [facility] Comment on above: Result Comment: PERF ORMED BY: [place] [id number] PATHOLOGIST ACTIVE DIRECTORY ENGINEER NICHOLE BOLDEN M.D. Performed By: #### D DIMER, BMP, BNP, HS TROP, CKMB, CK, CBC, PTT, PT #### [place] [id number] [facility] Glucose [Mass/Vol] 139 mg/dL Normal [facility] Comment on above: Result Comment: Brutus om Glucose Reference Range is dependent on time and content of last meal. Glucose of more than 200 mg/dL in a nonstressed, ambulatory subject supports the diagnosis of Diabetes Mellitus. Performed By: #### D DIMER, BMP, BNP, HS TROP, CKMB, CK, CBC, PTT, PT #### [place] [id number] [place] Glucose [Mass/Vol] 113 mg/dL Normal [facility] Comment on above: Result Comment: Brutus om Glucose Reference Range is dependent on time and content of last meal. Glucose of more than 200 mg/dL in a nonstressed, ambulatory subject supports the diagnosis of Diabetes Mellitus. PERFORMED BY: [place] [id number] PATHOLOGIST ACTIVE DIRECTORY ENGINEER NICHOLE BOLDEN M.D. Performed By: #### D DIMER, BMP, BNP, HS TROP, CKMB, CK, CBC, PTT, PT #### [facility] [address] [place] [address] Glucose [Mass/Vol] 162 mg/dL Normal [facility] Comment on above: Result Comment: Brutus om Glucose Reference Range is dependent on time and content of last meal. Glucose of more than 200 mg/dL in a nonstressed, ambulatory subject supports the diagnosis of Diabetes Mellitus. PERFORMED BY: [place] [id number] PATHOLOGIST ACTIVE DIRECTORY ENGINEER NICHOLE BOLDEN M.D. Performed By: #### D DIMER, BMP, BNP, HS TROP, CKMB, CK, CBC, PTT, PT #### [facility] [address] [place], [place] [phone] [facility] NM ed perf SPECT rest stron 01-03-2022 NM ed perf SPECT rest str [facility] Main [place] [id number] Nuclear Medicine Report Signed Patient: Esa Leavitt MR#: [id number] 623 : 1935 Acct:[id number] Age/Sex: 86 / M ADM Date: 01/01/22 Loc: Room: [address] [place] [address] Type: ADM IN Attending Dr: Mohsen Muniz MD Copies to: MD Demetra Gonzalez MD, [facility] Anderson Ambrosio MD Ordering Provider: Anderson [...] studies are available for comparison. Transcribed By: CHAVO 01/03/22 1426 Dictated By: Demetra Downey MD, [facility] 01/03/22 1412 Signed By: 01/04/22 1404 Normal [facility] STR cardiac stress/lexiscano n 01-03-2022 STR cardiac stress/lexiscan [facility] [address] Cardiac Stress Test Signed Patient: Esa Leavitt MR#: [id number] 623 : 1935 Acct:[id number] Age/Sex: 86 / M ADM Date: 01/01/22 Loc: Room: [address] [place] [address] Type: DIS IN Attending Dr: Mohsen Muniz MD Copies to: Demetra Downey MD, [facility] Anderson Ambrosio MD Ordering Provider: Anderson [...] By: NTS 01/03/22 1442 Dictated By: Demetra Downey MD, [facility] 01/03/22 1404 Signed By: 01/04/22 1404 [facility] Basic Metabolic Panelon 12-07 Calcium [Mass/Vol] 8.7 mg/dL Normal 8.2-10.2 [facility] Comment on above: Performed By: #### D DIMER, BMP, BNP, HS TROP, CKMB, CK, CBC, PTT, PT #### [facility] [address] Chloride [Moles/Vol] 93 mmol/L Low 95-114 [facility] Comment on above: Performed By: #### D DIMER, BMP, BNP, HS TROP, CKMB, CK, CBC, PTT, PT #### [facility] [address] CO2 [Moles/Vol] 28.8 mmol/L Normal 22.0-30.0 [facility] Comment on above: Performed By: #### D DIMER, BMP, BNP, HS TROP, CKMB, CK, CBC, PTT, PT #### [facility] [address] Creatinine [Mass/Vol] 0.61 mg/dL Low 0.64-1.27 [facility] Comment on above: Performed By: #### D DIMER, BMP, BNP, HS TROP, CKMB, CK, CBC, PTT, PT #### [facility] [address] Creatinine Clr Calc Pharmacy 62.94 [facility] Comment on above: Result Comment: PERF ORMED BY: [place] [id number] PATHOLOGIST ACTIVE DIRECTORY ENGINEER NICHOLE BOLDEN M.D. Performed By: #### D DIMER, BMP, BNP, HS TROP, CKMB, CK, CBC, PTT, PT #### [address] Estimated GFR ( [place] > 60 [facility] Comment on above: Result Comment: GFR estimated reference range: According to KDOQI guidelines, <60 ml/min/1.73m2 is sufficient to diagnose a patient with chronic kidney disease. Performed By: #### D DIMER, BMP, BNP, HS TROP, CKMB, CK, CBC, PTT, PT #### [facility] [address] Estimated GFR (Non- Am > 60 [facility] Comment on above: Performed By: #### D DIMER, BMP, BNP, HS TROP, CKMB, CK, CBC, PTT, PT #### [facility] [address] Glucose [Mass/Vol] 124 mg/dL High 70-100 [facility] Comment on above: Result Comment: Brutus om Glucose Reference Range is dependent on time and content of last meal. Glucose of more than 200 mg/dL in a nonstressed, ambulatory subject supports the diagnosis of Diabetes Mellitus. ADA recommended reference range Performed By: #### D DIMER, BMP, BNP, HS TROP, CKMB, CK, CBC, PTT, PT #### [address] Potassium [Moles/Vol] 3.9 mmol/L Normal 3.5-5.1 [facility] Comment on above: Performed By: #### D DIMER, BMP, BNP, HS TROP, CKMB, CK, CBC, PTT, PT #### [facility] [address] Sodium [Moles/Vol] 130 mmol/L Low 136-146 [facility] Comment on above: Performed By: #### D DIMER, BMP, BNP, HS TROP, CKMB, CK, CBC, PTT, PT #### [address] Urea nitrogen [Mass/Vol] 18 mg/dL Normal 9-23 [facility] Comment on above: Performed By: #### D DIMER, BMP, BNP, HS TROP, CKMB, CK, CBC, PTT, PT #### [address] Complete Blood Count Auto Di ffon 01-02-2022 Basophils (Bld) [#/Vol] 0.1 10*3/uL Normal 0.0-0.2 [facility] Comment on above: Result Comment: PERF ORMED BY: [place] [id number] PATHOLOGIST ACTIVE DIRECTORY ENGINEER NICHOLE BOLDEN M.D. Performed By: #### D DIMER, BMP, BNP, HS TROP, CKMB, CK, CBC, PTT, PT #### [address] Basophils/100 WBC (Bld) 0.6 % Normal . [facility] Comment on above: Performed By: #### D DIMER, BMP, BNP, HS TROP, CKMB, CK, CBC, PTT, PT #### [address] Eosinophils (Bld) [#/Vol] 0.0 10*3/uL Normal 0.0-0.45 [facility] Comment on above: Performed By: #### D DIMER, BMP, BNP, HS TROP, CKMB, CK, CBC, PTT, PT #### [address] Eosinophils/100 WBC (Bld) 0.3 % Normal . [facility] Comment on above: Performed By: #### D DIMER, BMP, BNP, HS TROP, CKMB, CK, CBC, PTT, PT #### [address] Erythrocyte distribution width (RBC) [Ratio] 13.6 % Normal 12.0-14.8 [facility] Comment on above: Performed By: #### D DIMER, BMP, BNP, HS TROP, CKMB, CK, CBC, PTT, PT #### [address] Hematocrit (Bld) [Volume fraction] 36.6 % Low 38.8-50.0 [facility] Comment on above: Performed By: #### D DIMER, BMP, BNP, HS TROP, CKMB, CK, CBC, PTT, PT #### [address] Hemoglobin (Bld) [Mass/Vol] 12.4 g/dL Low 13.0-17.0 [facility] Comment on above: Performed By: #### D DIMER, BMP, BNP, HS TROP, CKMB, CK, CBC, PTT, PT #### [address] Lymphocytes (Bld) [#/Vol] 0.8 10*3/uL Low 1.00-4.8 [facility] Comment on above: Performed By: #### D DIMER, BMP, BNP, HS TROP, CKMB, CK, CBC, PTT, PT #### [address] Lymphocytes/100 WBC (Bld) 9.0 % Normal . [facility] Comment on above: Performed By: #### D DIMER, BMP, BNP, HS TROP, CKMB, CK, CBC, PTT, PT #### [address] MCH (RBC) [Entitic mass] 32.8 pg Normal 27.5-35.2 [facility] Comment on above: Performed By: #### D DIMER, BMP, BNP, HS TROP, CKMB, CK, CBC, PTT, PT #### [address] MCV (RBC) [Entitic vol] 97.0 fL Normal 83.5-101 [facility] Comment on above: Performed By: #### D DIMER, BMP, BNP, HS TROP, CKMB, CK, CBC, PTT, PT #### [address] Mean Corpuscular HGB Conc 33.8 g/dL Normal 32.5-35.6 [facility] Comment on above: Performed By: #### D DIMER, BMP, BNP, HS TROP, CKMB, CK, CBC, PTT, PT #### [address] Monocytes (Bld) [#/Vol] 1.0 10*3/uL High 0.0-0.8 [facility] Comment on above: Performed By: #### D DIMER, BMP, BNP, HS TROP, CKMB, CK, CBC, PTT, PT #### [facility] [address] Monocytes/100 WBC (Bld) 11.1 % Normal . [facility] Comment on above: Performed By: #### D DIMER, BMP, BNP, HS TROP, CKMB, CK, CBC, PTT, PT #### [facility] [address] Neutrophils (Bld) [#/Vol] 7.4 10*3/uL Normal 1.8-7.7 [facility] Comment on above: Performed By: #### D DIMER, BMP, BNP, HS TROP, CKMB, CK, CBC, PTT, PT #### [address] Neutrophils/100 WBC (Bld) 79.0 % Normal . [facility] Comment on above: Performed By: #### D DIMER, BMP, BNP, HS TROP, CKMB, CK, CBC, PTT, PT #### [address] Nucleated RBC/100 WBC (Bld) [Ratio] 0.0 % Normal 0-0.5 [facility] Comment on above: Performed By: #### D DIMER, BMP, BNP, HS TROP, CKMB, CK, CBC, PTT, PT #### [address] Platelet mean volume (Bld) [Entitic vol] 9.9 fL Normal 6.6-10.1 [facility] Comment on above: Performed By: #### D DIMER, BMP, BNP, HS TROP, CKMB, CK, CBC, PTT, PT #### [place] [address] [place] Platelets (Bld) [#/Vol] 200 10*3/uL Normal 150-450 [facility] Comment on above: Performed By: #### D DIMER, BMP, BNP, HS TROP, CKMB, CK, CBC, PTT, PT #### [facility] [address] RBC (Bld) [#/Vol] 3.77 10*6/uL Low 3.90-5.60 [facility] Comment on above: Performed By: #### D DIMER, BMP, BNP, HS TROP, CKMB, CK, CBC, PTT, PT #### [facility] [address] WBC (Bld) [#/Vol] 9.4 10*3/uL Normal 4.5-11.0 [facility] Comment on above: Performed By: #### D DIMER, BMP, BNP, HS TROP, CKMB, CK, CBC, PTT, PT #### [facility] [address] ECG 12 lead ECGon 01-02-2022 ECG 12 lead ECG [facility] [place] [address] [place] [address] Electrocardiograph Report Signed Patient: Esa Leavitt MR#: [id number] 623 : 1935 Acct:[id number] Age/Sex: 86 / M ADM Date: 01/01/22 Loc: Room: [address] [place] [address] Type: DIS IN Attending Dr: Mohsen Muniz MD Ordering Provider: Demetra Downey MD, [facility] Date of Service: 01/02/22 ECG/ECG 12 [...] AV dissociation rhythm Confirmed by NASREEN JOHNS [facility], DEMETRA ([id number]) on 01/03/2022 1:16:00 PM Referred By: Electronically Signed By:DEMETRA DOWNEY MD [facility] Transcribed By: MUS Signed By Demetra Downey MD, [facility] 01/03/22 1316 Normal [facility] Glucose Poct Glucometerson 0 01-02-2022 Glucose [Mass/Vol] 134 mg/dL Normal [facility] Comment on above: Result Comment: [facility] Glucose Reference Range is dependent on time and content of last meal. Glucose of more than 200 mg/dL in a nonstressed, ambulatory subject supports the diagnosis of Diabetes Mellitus. PERFORMED BY: [place] [id number] PATHOLOGIST ACTIVE DIRECTORY ENGINEER NICHOLE BOLDEN M.D. Performed By: #### D DIMER, BMP, BNP, HS TROP, CKMB, CK, CBC, PTT, PT #### [address] Commemt1 Glu2: Cleaned Meter [facility] Comment on above: Result Comment: PERF ORMED BY: [place] [id number] PATHOLOGIST ACTIVE DIRECTORY ENGINEER NICHOLE BOLDEN M.D. Performed By: #### D DIMER, BMP, BNP, HS TROP, CKMB, CK, CBC, PTT, PT #### [address] Glucose [Mass/Vol] 142 mg/dL Normal [facility] Comment on above: Result Comment: [facility] Glucose Reference Range is dependent on time and content of last meal. Glucose of more than 200 mg/dL in a nonstressed, ambulatory subject supports the diagnosis of Diabetes Mellitus. Performed By: #### D DIMER, BMP, BNP, HS TROP, CKMB, CK, CBC, PTT, PT #### [facility] [address] [place] [address] Commemt1 Glu2: Cleaned Meter [facility] Comment on above: Result Comment: PERF ORMED BY: [place] [id number] PATHOLOGIST ACTIVE DIRECTORY ENGINEER NICHOLE BOLDEN M.D. Performed By: #### D DIMER, BMP, BNP, HS TROP, CKMB, CK, CBC, PTT, PT #### [facility] [address] Glucose [Mass/Vol] 144 mg/dL Normal [facility] Comment on above: Result Comment: [facility] Glucose Reference Range is dependent on time and content of last meal. Glucose of more than 200 mg/dL in a nonstressed, ambulatory subject supports the diagnosis of Diabetes Mellitus. Performed By: #### D DIMER, BMP, BNP, HS TROP, CKMB, CK, CBC, PTT, PT #### [facility] [address] Glucose [Mass/Vol] 129 mg/dL Normal [facility] Comment on above: Result Comment: [facility] Glucose Reference Range is dependent on time and content of last meal. Glucose of more than 200 mg/dL in a nonstressed, ambulatory subject supports the diagnosis of Diabetes Mellitus. PERFORMED BY: [place] [id number] PATHOLOGIST ACTIVE DIRECTORY ENGINEER NICHOLE BOLDEN M.D. Performed By: #### D DIMER, BMP, BNP, HS TROP, CKMB, CK, CBC, PTT, PT #### [address] Automated erythrocytes count in urine sediment (number/area)Ordered By: Ronit Caruso on 01-01-2022 RBC Auto (Urine sed) [#/Area] 0-1 [HPF] 0-4 [facility] Automated leukocytes count i n urine sediment (number/area)Ordered By: Ronit Caruso on 01-01-2022 WBC Auto (Urine sed) [#/Area] None seen [HPF] 0-4 [facility] B-Type Natriuretic Peptideon 01-01-2022 Natriuretic peptide B (Bld) [Mass/Vol] 157.0 pg/mL High 5-100 [facility] Comment on above: Result Comment: PERF ORMED BY: [place] [id number] PATHOLOGIST ACTIVE DIRECTORY ENGINEER NICHOLE BOLDEN M.D. Performed By: #### D DIMER, BMP, BNP, HS TROP, CKMB, CK, CBC, PTT, PT #### [address] Basic Metabolic Panelon 12-07 Calcium [Mass/Vol] 9.0 mg/dL Normal 8.2-10.2 [facility] Comment on above: Result Comment: PERF ORMED BY: [place] [id number] PATHOLOGIST ACTIVE DIRECTORY ENGINEER NICHOLE BOLDEN M.D. Performed By: #### D DIMER, BMP, BNP, HS TROP, CKMB, CK, CBC, PTT, PT #### [address] Chloride [Moles/Vol] 92 mmol/L Low 95-114 [facility] Comment on above: Performed By: #### D DIMER, BMP, BNP, HS TROP, CKMB, CK, CBC, PTT, PT #### [address] CO2 [Moles/Vol] 23.3 mmol/L Normal 22.0-30.0 [facility] Comment on above: Performed By: #### D DIMER, BMP, BNP, HS TROP, CKMB, CK, CBC, PTT, PT #### [address] Creatinine [Mass/Vol] 0.59 mg/dL Low 0.64-1.27 [facility] Comment on above: Performed By: #### D DIMER, BMP, BNP, HS TROP, CKMB, CK, CBC, PTT, PT #### [address] Estimated GFR ( [place] > 60 Normal [facility] Comment on above: Result Comment: GFR estimated reference range: According to KDOQI guidelines, <60 ml/min/1.73m2 is sufficient to diagnose a patient with chronic kidney disease. Performed By: #### D DIMER, BMP, BNP, HS TROP, CKMB, CK, CBC, PTT, PT #### [address] Estimated GFR (Non- Am > 60 Normal [facility] Comment on above: Performed By: #### D DIMER, BMP, BNP, HS TROP, CKMB, CK, CBC, PTT, PT #### [facility] [address] Glucose [Mass/Vol] 194 mg/dL High 70-100 [facility] Comment on above: Result Comment: [facility] Glucose Reference Range is dependent on time and content of last meal. Glucose of more than 200 mg/dL in a nonstressed, ambulatory subject supports the diagnosis of Diabetes Mellitus. ADA recommended reference range Performed By: #### D DIMER, BMP, BNP, HS TROP, CKMB, CK, CBC, PTT, PT #### [facility] [address] Potassium [Moles/Vol] 3.5 mmol/L Normal 3.5-5.1 [facility] Comment on above: Performed By: #### D DIMER, BMP, BNP, HS TROP, CKMB, CK, CBC, PTT, PT #### [facility] [address] Sodium [Moles/Vol] 133 mmol/L Low 136-146 [facility] Comment on above: Performed By: #### D DIMER, BMP, BNP, HS TROP, CKMB, CK, CBC, PTT, PT #### [facility] [address] Urea nitrogen [Mass/Vol] 15 mg/dL Normal 9-23 [facility] Comment on above: Performed By: #### D DIMER, BMP, BNP, HS TROP, CKMB, CK, CBC, PTT, PT #### [facility] [address] Bilirubin Test strip Ql (U)O rdered By: Ronit Caruso on 01-01-2022 Bilirubin Ql (U) Negative Negative [facility] Blood Cultureon 01-01-2022 Bacteria identified Cx Nom (Bld) NO GROWTH 5 DAYS PERFORMED BY: [place] [id number] PATHOLOGIST ACTIVE DIRECTORY ENGINEER NICHOLE BOLDEN M.D. [facility] Comment on above: Performed By: #### D DIMER, BMP, BNP, HS TROP, CKMB, CK, CBC, PTT, PT #### [facility] [address] Bacteria identified Cx Nom (Bld) NO GROWTH 5 DAYS PERFORMED BY: [place] [id number] PATHOLOGIST ACTIVE DIRECTORY ENGINEER NICHOLE BOLDEN M.D. [facility] Comment on above: Performed By: #### D DIMER, BMP, BNP, HS TROP, CKMB, CK, CBC, PTT, PT #### [facility] [address] COVID-19 Antigenon 2 COVID-19 Antigen [facility] [...] developed and its performance characteristic determined by [employer] and validated at [facility]. This test has not been FDA [...] the authorization is terminated or revoked sooner. SARS-CoV+SARS-CoV-2 (COVID-19) Ag [Presence] in Respiratory specimen by Rapid immunoassay Negative for SARS Antigen by [employer] PERFORMED BY: [place] [id number] PATHOLOGIST ACTIVE DIRECTORY ENGINEER NICHOLE BOLDEN M.D. Normal [facility] Comment on above: Performed By: #### D DIMER, BMP, BNP, HS TROP, CKMB, CK, CBC, PTT, PT #### [address] COVID-19 [facility] 01-01-2022 SARS-CoV-2 (COVID-19) RNA JEFF+probe Ql (Unsp spec) Negative Normal Negative [facility] Comment on above: Order Comment: Healt hcare Worker?: N Result Comment: Testing for SARS-CoV-2 by RT-PCR This test was developed and its performance characteristics determined by [employer]) and validated at the [facility]. This test has not been FDA [...] is terminated or revoked sooner. PERFORMED BY: [address] [id number] PATHOLOGIST ACTIVE DIRECTORY ENGINEER NICHOLE BOLDEN M.D. Performed By: #### D DIMER, BMP, BNP, HS TROP, CKMB, CK, CBC, PTT, PT #### [facility] [address] [place] [address] [facility] CT chest w conon 01-01-2022 CT chest w con [facility] [place] [address] [place] [address] CT Scan Report Signed Patient: Esa Leavitt MR#: [id number] 623 : 1935 Acct:[id number] Age/Sex: 86 / M ADM Date: 01/01/22 Loc: Room: [address] [place] [address] Type: ADM IN Attending Dr: Ronit Caruso [...] chest findings. Large hiatal hernia. Basilar linear atelectasis/scarring . The RIGHT lung nodules. No priors for comparison. Consider short-term follow-up assessment with CT examination versus a PET/CT imaging. Impression dictated by: Brooks Easley M.D.01/01/2022 6:24 PM Dictation Location: [place] [address] Transcribed By: [facility] 01/01/221823 Dictated By: Brooks Easley DO 01/01/221816 Signed By: 01/01/221823 Normal [facility] Color Auto (U)Ordered By: Kyle Caruso on 01-01-2022 Color (U) [place] Yellow [facility] Complete Blood Count Auto Di ffon 01-01-2022 Basophils (Bld) [#/Vol] 0.0 10*3/uL Normal 0.0-0.2 [facility] Comment on above: Result Comment: PERF ORMED BY: [place] [id number] PATHOLOGIST ACTIVE DIRECTORY ENGINEER NICHOLE BOLDEN M.D. Performed By: #### D DIMER, BMP, BNP, HS TROP, CKMB, CK, CBC, PTT, PT #### [address] Basophils/100 WBC (Bld) 0.2 % Normal . [facility] Comment on above: Performed By: #### D DIMER, BMP, BNP, HS TROP, CKMB, CK, CBC, PTT, PT #### [address] Eosinophils (Bld) [#/Vol] 0.0 10*3/uL Normal 0.0-0.45 [facility] Comment on above: Performed By: #### D DIMER, BMP, BNP, HS TROP, CKMB, CK, CBC, PTT, PT #### [address] Eosinophils/100 WBC (Bld) 0.0 % Normal . [facility] Comment on above: Performed By: #### D DIMER, BMP, BNP, HS TROP, CKMB, CK, CBC, PTT, PT #### [address] Erythrocyte distribution width (RBC) [Ratio] 13.4 % Normal 12.0-14.8 [facility] Comment on above: Performed By: #### D DIMER, BMP, BNP, HS TROP, CKMB, CK, CBC, PTT, PT #### [address] Hematocrit (Bld) [Volume fraction] 37.4 % Low 38.8-50.0 [facility] Comment on above: Performed By: #### D DIMER, BMP, BNP, HS TROP, CKMB, CK, CBC, PTT, PT #### [address] Hemoglobin (Bld) [Mass/Vol] 12.5 g/dL Low 13.0-17.0 [facility] Comment on above: Performed By: #### D DIMER, BMP, BNP, HS TROP, CKMB, CK, CBC, PTT, PT #### [address] Lymphocytes (Bld) [#/Vol] 0.6 10*3/uL Low 1.00-4.8 [facility] Comment on above: Performed By: #### D DIMER, BMP, BNP, HS TROP, CKMB, CK, CBC, PTT, PT #### [address] Lymphocytes/100 WBC (Bld) 3.7 % Normal . [facility] Comment on above: Performed By: #### D DIMER, BMP, BNP, HS TROP, CKMB, CK, CBC, PTT, PT #### [address] MCH (RBC) [Entitic mass] 32.3 pg Normal 27.5-35.2 [facility] Comment on above: Performed By: #### D DIMER, BMP, BNP, HS TROP, CKMB, CK, CBC, PTT, PT #### [address] MCV (RBC) [Entitic vol] 97.1 fL Normal 83.5-101 [facility] Comment on above: Performed By: #### D DIMER, BMP, BNP, HS TROP, CKMB, CK, CBC, PTT, PT #### [address] Mean Corpuscular HGB Conc 33.3 g/dL Normal 32.5-35.6 [facility] Comment on above: Performed By: #### D DIMER, BMP, BNP, HS TROP, CKMB, CK, CBC, PTT, PT #### [facility] [address] Monocytes (Bld) [#/Vol] 1.5 10*3/uL High 0.0-0.8 [facility] Comment on above: Performed By: #### D DIMER, BMP, BNP, HS TROP, CKMB, CK, CBC, PTT, PT #### [facility] [address] Monocytes/100 WBC (Bld) 9.3 % Normal . [facility] Comment on above: Performed By: #### D DIMER, BMP, BNP, HS TROP, CKMB, CK, CBC, PTT, PT #### [facility] [address] Neutrophils (Bld) [#/Vol] 13.8 10*3/uL High 1.8-7.7 [facility] Comment on above: Performed By: #### D DIMER, BMP, BNP, HS TROP, CKMB, CK, CBC, PTT, PT #### [facility] [address] Neutrophils/100 WBC (Bld) 86.8 % Normal . [facility] Comment on above: Performed By: #### D DIMER, BMP, BNP, HS TROP, CKMB, CK, CBC, PTT, PT #### [facility] [address] [place] [address] [place] Nucleated RBC/100 WBC (Bld) [Ratio] 0.0 % Normal 0-0.5 [facility] Comment on above: Performed By: #### D DIMER, BMP, BNP, HS TROP, CKMB, CK, CBC, PTT, PT #### [facility] [address] Platelet mean volume (Bld) [Entitic vol] 9.7 fL Normal 6.6-10.1 [facility] Comment on above: Performed By: #### D DIMER, BMP, BNP, HS TROP, CKMB, CK, CBC, PTT, PT #### [address] Platelets (Bld) [#/Vol] 228 10*3/uL Normal 150-450 [facility] Comment on above: Performed By: #### D DIMER, BMP, BNP, HS TROP, CKMB, CK, CBC, PTT, PT #### [address] RBC (Bld) [#/Vol] 3.86 10*6/uL Low 3.90-5.60 [facility] Comment on above: Performed By: #### D DIMER, BMP, BNP, HS TROP, CKMB, CK, CBC, PTT, PT #### [address] WBC (Bld) [#/Vol] 15.9 10*3/uL High 4.5-11.0 [facility] Comment on above: Performed By: #### D DIMER, BMP, BNP, HS TROP, CKMB, CK, CBC, PTT, PT #### [address] Basophils (Bld) [#/Vol] 0.0 10*3/uL Normal 0.0-0.2 [facility] Comment on above: Result Comment: PERF ORMED BY: [place] [id number] PATHOLOGIST ACTIVE DIRECTORY ENGINEER NICHOLE BOLDEN M.D. Performed By: #### D DIMER, BMP, BNP, HS TROP, CKMB, CK, CBC, PTT, PT #### [address] Basophils/100 WBC (Bld) 0.3 % Normal . [facility] Comment on above: Performed By: #### D DIMER, BMP, BNP, HS TROP, CKMB, CK, CBC, PTT, PT #### [address] Eosinophils (Bld) [#/Vol] 0.0 10*3/uL Normal 0.0-0.45 [facility] Comment on above: Performed By: #### D DIMER, BMP, BNP, HS TROP, CKMB, CK, CBC, PTT, PT #### [address] Eosinophils/100 WBC (Bld) 0.2 % Normal . [facility] Comment on above: Performed By: #### D DIMER, BMP, BNP, HS TROP, CKMB, CK, CBC, PTT, PT #### [address] Erythrocyte distribution width (RBC) [Ratio] 13.3 % Normal 12.0-14.8 [facility] Comment on above: Performed By: #### D DIMER, BMP, BNP, HS TROP, CKMB, CK, CBC, PTT, PT #### [address] Hematocrit (Bld) [Volume fraction] 38.5 % Low 38.8-50.0 [facility] Comment on above: Performed By: #### D DIMER, BMP, BNP, HS TROP, CKMB, CK, CBC, PTT, PT #### [address] Hemoglobin (Bld) [Mass/Vol] 12.7 g/dL Low 13.0-17.0 [facility] Comment on above: Performed By: #### D DIMER, BMP, BNP, HS TROP, CKMB, CK, CBC, PTT, PT #### [address] Lymphocytes (Bld) [#/Vol] 0.6 10*3/uL Low 1.00-4.8 [facility] Comment on above: Performed By: #### D DIMER, BMP, BNP, HS TROP, CKMB, CK, CBC, PTT, PT #### [address] Lymphocytes/100 WBC (Bld) 4.3 % Normal . [facility] Comment on above: Performed By: #### D DIMER, BMP, BNP, HS TROP, CKMB, CK, CBC, PTT, PT #### [address] MCH (RBC) [Entitic mass] 32.0 pg Normal 27.5-35.2 [facility] Comment on above: Performed By: #### D DIMER, BMP, BNP, HS TROP, CKMB, CK, CBC, PTT, PT #### [address] MCV (RBC) [Entitic vol] 97.4 fL Normal 83.5-101 [facility] Comment on above: Performed By: #### D DIMER, BMP, BNP, HS TROP, CKMB, CK, CBC, PTT, PT #### [address] Mean Corpuscular HGB Conc 32.9 g/dL Normal 32.5-35.6 [facility] Comment on above: Performed By: #### D DIMER, BMP, BNP, HS TROP, CKMB, CK, CBC, PTT, PT #### [address] Monocytes (Bld) [#/Vol] 0.9 10*3/uL High 0.0-0.8 [facility] Comment on above: Performed By: #### D DIMER, BMP, BNP, HS TROP, CKMB, CK, CBC, PTT, PT #### [address] Monocytes/100 WBC (Bld) 6.6 % Normal . [facility] Comment on above: Performed By: #### D DIMER, BMP, BNP, HS TROP, CKMB, CK, CBC, PTT, PT #### [address] Neutrophils (Bld) [#/Vol] 12.3 10*3/uL High 1.8-7.7 [facility] Comment on above: Performed By: #### D DIMER, BMP, BNP, HS TROP, CKMB, CK, CBC, PTT, PT #### [address] [place] [address] [place] Neutrophils/100 WBC (Bld) 88.6 % Normal . [facility] Comment on above: Performed By: #### D DIMER, BMP, BNP, HS TROP, CKMB, CK, CBC, PTT, PT #### [facility] [address] Nucleated RBC/100 WBC (Bld) [Ratio] 0.1 % Normal 0-0.5 [facility] Comment on above: Performed By: #### D DIMER, BMP, BNP, HS TROP, CKMB, CK, CBC, PTT, PT #### [facility] [address] Platelet mean volume (Bld) [Entitic vol] 8.7 fL Normal 6.6-10.1 [facility] Comment on above: Performed By: #### D DIMER, BMP, BNP, HS TROP, CKMB, CK, CBC, PTT, PT #### [address] Platelets (Bld) [#/Vol] 254 10*3/uL Normal 150-450 [facility] Comment on above: Performed By: #### D DIMER, BMP, BNP, HS TROP, CKMB, CK, CBC, PTT, PT #### [address] RBC (Bld) [#/Vol] 3.96 10*6/uL Normal 3.90-5.60 [facility] Comment on above: Performed By: #### D DIMER, BMP, BNP, HS TROP, CKMB, CK, CBC, PTT, PT #### [address] WBC (Bld) [#/Vol] 13.8 10*3/uL High 4.5-11.0 [facility] Comment on above: Performed By: #### D DIMER, BMP, BNP, HS TROP, CKMB, CK, CBC, PTT, PT #### [address] Comprehensive Metabolic Pane ritika 01-01-2022 Albumin [Mass/Vol] 3.4 g/dL Normal 3.2-5.5 [facility] Comment on above: Performed By: #### D DIMER, BMP, BNP, HS TROP, CKMB, CK, CBC, PTT, PT #### [address] Albumin/Globulin [Mass ratio] 1.2 {ratio} Normal [facility] Comment on above: Performed By: #### D DIMER, BMP, BNP, HS TROP, CKMB, CK, CBC, PTT, PT #### [address] ALP [Catalytic activity/Vol] 45 U/L Normal 32-92 [facility] Comment on above: Performed By: #### D DIMER, BMP, BNP, HS TROP, CKMB, CK, CBC, PTT, PT #### [address] ALT [Catalytic activity/Vol] 13 U/L Normal 10-60 [facility] Comment on above: Performed By: #### D DIMER, BMP, BNP, HS TROP, CKMB, CK, CBC, PTT, PT #### [address] AST [Catalytic activity/Vol] 18 U/L Normal 10-42 [facility] Comment on above: Performed By: #### D DIMER, BMP, BNP, HS TROP, CKMB, CK, CBC, PTT, PT #### [address] Bilirubin [Mass/Vol] 1.1 mg/dL Normal 0.3-1.2 [facility] Comment on above: Performed By: #### D DIMER, BMP, BNP, HS TROP, CKMB, CK, CBC, PTT, PT #### [address] Calcium [Mass/Vol] 8.9 mg/dL Normal 8.2-10.2 [facility] Comment on above: Performed By: #### D DIMER, BMP, BNP, HS TROP, CKMB, CK, CBC, PTT, PT #### [facility] [address] Chloride [Moles/Vol] 91 mmol/L Low 95-114 [facility] Comment on above: Performed By: #### D DIMER, BMP, BNP, HS TROP, CKMB, CK, CBC, PTT, PT #### [address] CO2 [Moles/Vol] 30.0 mmol/L Normal 22.0-30.0 [facility] Comment on above: Performed By: #### D DIMER, BMP, BNP, HS TROP, CKMB, CK, CBC, PTT, PT #### [address] Creatinine [Mass/Vol] 0.70 mg/dL Normal 0.64-1.27 [facility] Comment on above: Performed By: #### D DIMER, BMP, BNP, HS TROP, CKMB, CK, CBC, PTT, PT #### [address] Creatinine Clr Calc Pharmacy 62.94 [facility] Comment on above: Performed By: #### D DIMER, BMP, BNP, HS TROP, CKMB, CK, CBC, PTT, PT #### [address] Estimated GFR ( [place] > 60 [facility] Comment on above: Result Comment: GFR estimated reference range: According to KDOQI guidelines, <60 ml/min/1.73m2 is sufficient to diagnose a patient with chronic kidney disease. Performed By: #### D DIMER, BMP, BNP, HS TROP, CKMB, CK, CBC, PTT, PT #### [address] Estimated GFR (Non- Am > 60 [facility] Comment on above: Performed By: #### D DIMER, BMP, BNP, HS TROP, CKMB, CK, CBC, PTT, PT #### [address] Globulin (S) [Mass/Vol] 2.9 g/dL Normal [facility] Comment on above: Performed By: #### D DIMER, BMP, BNP, HS TROP, CKMB, CK, CBC, PTT, PT #### [facility] [address] Glucose [Mass/Vol] 170 mg/dL High 70-100 [facility] Comment on above: Result Comment: [facility] Glucose Reference Range is dependent on time and content of last meal. Glucose of more than 200 mg/dL in a nonstressed, ambulatory subject supports the diagnosis of Diabetes Mellitus. ADA recommended reference range Performed By: #### D DIMER, BMP, BNP, HS TROP, CKMB, CK, CBC, PTT, PT #### [facility] [address] Potassium [Moles/Vol] 3.8 mmol/L Normal 3.5-5.1 [facility] Comment on above: Performed By: #### D DIMER, BMP, BNP, HS TROP, CKMB, CK, CBC, PTT, PT #### [facility] [address] Protein [Mass/Vol] 6.3 g/dL Normal 6.1-7.9 [facility] Comment on above: Performed By: #### D DIMER, BMP, BNP, HS TROP, CKMB, CK, CBC, PTT, PT #### [facility] [address] Sodium [Moles/Vol] 131 mmol/L Low 136-146 [facility] Comment on above: Performed By: #### D DIMER, BMP, BNP, HS TROP, CKMB, CK, CBC, PTT, PT #### [facility] [address] Urea nitrogen [Mass/Vol] 19 mg/dL Normal 9-23 [facility] Comment on above: Performed By: #### D DIMER, BMP, BNP, HS TROP, CKMB, CK, CBC, PTT, PT #### [facility] [address] Creatine Kinaseon 01-01-2022 CK [Catalytic activity/Vol] 74 U/L Normal 22-269 [facility] Comment on above: Performed By: #### D DIMER, BMP, BNP, HS TROP, CKMB, CK, CBC, PTT, PT #### [facility] [address] Creatinine Kinase MBon 01-01 CK.MB [Mass/Vol] 3.5 ng/mL Normal 0.6-6.3 [facility] Comment on above: Performed By: #### D DIMER, BMP, BNP, HS TROP, CKMB, CK, CBC, PTT, PT #### [facility] [address] CKMB Relative Index 4.7 % High 0.00-2.50 [facility] Comment on above: Performed By: #### D DIMER, BMP, BNP, HS TROP, CKMB, CK, CBC, PTT, PT #### [facility] [address] D-Dimer High Sensitivityon 0 01-01-2022 D-Dimer High Sensitivity 280 ng/mL High 0-243 [facility] Comment on above: Result Comment: The [...] patients due to co-morbid conditions. PERFORMED BY: [place] [id number] PATHOLOGIST ACTIVE DIRECTORY ENGINEER NICHOLE BOLDEN M.D. Performed By: #### D DIMER, BMP, BNP, HS TROP, CKMB, CK, CBC, PTT, PT #### [facility] [address] Dipstick and Microscopicon 0 01-01-2022 Appearance (U) Clear Normal Clear [facility] Comment on above: Order Comment: Name Collection Type:: Clean-Voided Midstream Performed By: #### D DIMER, BMP, BNP, HS TROP, CKMB, CK, CBC, PTT, PT #### [address] Bacteria,Urine None Seen Normal None Seen [facility] Comment on above: Order Comment: Name Collection Type:: Clean-Voided Midstream Performed By: #### D DIMER, BMP, BNP, HS TROP, CKMB, CK, CBC, PTT, PT #### [address] Bilirubin,Urine Negative Normal Negative [facility] Comment on above: Order Comment: Name Collection Type:: Clean-Voided Midstream Performed By: #### D DIMER, BMP, BNP, HS TROP, CKMB, CK, CBC, PTT, PT #### [address] Color (U) [place] Critically abnormal Yellow [facility] Comment on above: Order Comment: Name Collection Type:: Clean-Voided Midstream Performed By: #### D DIMER, BMP, BNP, HS TROP, CKMB, CK, CBC, PTT, PT #### [facility] [address] [place] [address] Glucose Ql (U) Normal Normal Normal [facility] Comment on above: Order Comment: Name Collection Type:: Clean-Voided Midstream Performed By: #### D DIMER, BMP, BNP, HS TROP, CKMB, CK, CBC, PTT, PT #### [address] Hyaline Casts,Urine 0-8 Normal 0-8 [facility] Comment on above: Order Comment: Name Collection Type:: Clean-Voided Midstream Result Comment: PERF ORMED BY: [place] [id number] PATHOLOGIST ACTIVE DIRECTORY ENGINEER NICHOLE BOLDEN M.D. Performed By: #### D DIMER, BMP, BNP, HS TROP, CKMB, CK, CBC, PTT, PT #### [address] Ketones Ql (U) Negative Normal Negative [facility] Comment on above: Order Comment: Name Collection Type:: Clean-Voided Midstream Performed By: #### D DIMER, BMP, BNP, HS TROP, CKMB, CK, CBC, PTT, PT #### [address] Leukocyte esterase Test strip Ql (U) Negative Normal Negative [facility] Comment on above: Order Comment: Name Collection Type:: Clean-Voided Midstream Performed By: #### D DIMER, BMP, BNP, HS TROP, CKMB, CK, CBC, PTT, PT #### [address] Nitrite,Urine Negative Normal Negative [facility] Comment on above: Order Comment: Name Collection Type:: Clean-Voided Midstream Performed By: #### D DIMER, BMP, BNP, HS TROP, CKMB, CK, CBC, PTT, PT #### [address] Occult Blood,Urine Negative Normal Negative [facility] Comment on above: Order Comment: Name Collection Type:: Clean-Voided Midstream Result Comment: PERF ORMED BY: [place] [id number] PATHOLOGIST ACTIVE DIRECTORY ENGINEER NICHOLE BOLDEN M.D. Performed By: #### D DIMER, BMP, BNP, HS TROP, CKMB, CK, CBC, PTT, PT #### [address] pH (U) 5.5 [pH] Normal 5.0-9.0 [facility] Comment on above: Order Comment: Name Collection Type:: Clean-Voided Midstream Performed By: #### D DIMER, BMP, BNP, HS TROP, CKMB, CK, CBC, PTT, PT #### [address] Protein,Urine Negative Normal Negative [facility] Comment on above: Order Comment: Name Collection Type:: Clean-Voided Midstream Performed By: #### D DIMER, BMP, BNP, HS TROP, CKMB, CK, CBC, PTT, PT #### [address] RBC LM.HPF (Urine sed) [#/Area] 0 /[HPF] Normal 0-4 [facility] Comment on above: Order Comment: Name Collection Type:: Clean-Voided Midstream Performed By: #### D DIMER, BMP, BNP, HS TROP, CKMB, CK, CBC, PTT, PT #### [address] Specificy [place],Urine 1.020 Normal 1.001-1.030 [facility] Comment on above: Order Comment: Name Collection Type:: Clean-Voided Midstream Performed By: #### D DIMER, BMP, BNP, HS TROP, CKMB, CK, CBC, PTT, PT #### [address] Squamous Epithelial Cell,Urine 1-2 Normal 0-2 [facility] Comment on above: Order Comment: Name Collection Type:: Clean-Voided Midstream Performed By: #### D DIMER, BMP, BNP, HS TROP, CKMB, CK, CBC, PTT, PT #### [address] Urobilinogen,Urine Normal Normal Normal [facility] Comment on above: Order Comment: Name Collection Type:: Clean-Voided Midstream Performed By: #### D DIMER, BMP, BNP, HS TROP, CKMB, CK, CBC, PTT, PT #### [address] WBC,Urine None Seen Normal 0-4 [facility] Comment on above: Order Comment: Name Collection Type:: Clean-Voided Midstream Performed By: #### D DIMER, BMP, BNP, HS TROP, CKMB, CK, CBC, PTT, PT #### [address] ECG 12 lead ECGon 01-01-2022 ECG 12 lead ECG [facility] [place] [address] [place] [address] Electrocardiograph Report Signed Patient: Esa Leavitt MR#: [id number] 623 : 1935 Acct:[id number] Age/Sex: 86 / M ADM Date: 01/01/22 Loc: 3T Room: [address] [place] [address] Type: DIS IN Attending Dr: Mohsen Muniz [...] previous ECGs available Confirmed by NAS[facility]EN JOHNS [facility] ([id number][facility] on 01/03/2022 1:15:10 PM Referred By: HOSP Electronically Signed By:DEMETRA DOWNEY MD FACC Transcribed By: MUS Signed By Demetra Downey MD, FACC 01/03/22 1315 Normal [facility] ECG 12 lead ECG [facility] [place] [address] [place], [place] [id number] Electrocardiograph Report Signed Patient: Esa Leavitt MR#: [id number] 623 : 1935 Acct:[id number] Age/Sex: 86 / M ADM Date: 01/01/22 Loc: Room: [address] [place] [address] Type: DIS IN Attending Dr: Mohsen Muniz MD Ordering Provider: Bouchra Hugo MD Date of Service: 12/31/21 ECG/ECG 12 [...] No previous ECGs available Confirmed by BOUCHRA HUGO MD ([id number]) on 01/01/2022 1:37:41 AM Referred By: Electronically Signed By:BOUCHRA HUGO MD Transcribed By: MUS Signed By Bouchra Hugo MD 12/07 11/26 0137 [facility] echo transthoracicon [facility] echo transthoracic [facility] [place] [address] [place], [place] [id number] Echocardiogram Signed Patient: Esa Leavitt MR#: [id number] 623 : 1935 Acct:[id number] Age/Sex: 86 / M ADM Date: 01/01/22 Loc: Room: [address] [place] [address] Type: DIS IN Attending Dr: Mohsen Muniz MD Ordering Provider: Anabella Stone MD Date of Service: 01/01/22 [facility] echo transthoracic: Chest Pain Copies to: MD Demetra Le MD, [facility] Weight: 157 lb Performed By: VERO [...] Arteries: The aortic root is normal size. Pericardium/Pleura: No pericardial effusion seen. There is no [...] 5.0 mmHg Transcribed By: MARY Performed At: 01/01/22 1031 Signed By: Demetra Downey MD, [facility] 01/02/22 1142 Normal [facility] Free T4 (Free Thyroxine)on 0 01-01-2022 Free T4 [Mass/Vol] 0.95 ng/dL Normal 0.61-1.12 [facility] Comment on above: Performed By: #### D DIMER, BMP, BNP, HS TROP, CKMB, CK, CBC, PTT, PT #### [facility] [address] [place] [id number] [facility] Glucose Poct Glucometerson 0 01-01-2022 Glucose [Mass/Vol] 159 mg/dL Normal [facility] Comment on above: Result Comment: Brutus om Glucose Reference Range is dependent on time and content of last meal. Glucose of more than 200 mg/dL in a nonstressed, ambulatory subject supports the diagnosis of Diabetes Mellitus. PERFORMED BY: [place] [id number] PATHOLOGIST ACTIVE DIRECTORY ENGINEER NICHOLE BOLDEN M.D. Performed By: #### D DIMER, BMP, BNP, HS TROP, CKMB, CK, CBC, PTT, PT #### [address] [address] [place] Glucose [Mass/Vol] 130 mg/dL Normal [facility] Comment on above: Result Comment: Brutus om Glucose Reference Range is dependent on time and content of last meal. Glucose of more than 200 mg/dL in a nonstressed, ambulatory subject supports the diagnosis of Diabetes Mellitus. PERFORMED BY: [place] [id number] PATHOLOGIST ACTIVE DIRECTORY ENGINEER NICHOLE BOLDEN M.D. Performed By: #### D DIMER, BMP, BNP, HS TROP, CKMB, CK, CBC, PTT, PT #### [facility] [address] [place] [address] [place] Glucose [Mass/Vol] 176 mg/dL Normal [facility] Comment on above: Result Comment: Brut[place] om Glucose Reference Range is dependent on time and content of last meal. Glucose of more than 200 mg/dL in a nonstressed, ambulatory subject supports the diagnosis of Diabetes Mellitus. PERFORMED BY: [place] [id number] PATHOLOGIST ACTIVE DIRECTORY ENGINEER NICHOLE BOLDEN M.D. Performed By: #### D DIMER, BMP, BNP, HS TROP, CKMB, CK, CBC, PTT, PT #### [address] Glucose [Mass/Vol] 180 mg/dL Normal [facility] Comment on above: Result Comment: [facility] Glucose Reference Range is dependent on time and content of last meal. Glucose of more than 200 mg/dL in a nonstressed, ambulatory subject supports the diagnosis of Diabetes Mellitus. PERFORMED BY: [place] [id number] PATHOLOGIST ACTIVE DIRECTORY ENGINEER NICHOLE BOLDEN M.D. Performed By: #### G LUPETEY #### Point of Care testing , Ketones Auto test strip (U) [Mass/Vol]Ordered By: Ronit Caruso on 01-01-2022 Ketones (U) [Mass/Vol] Negative Negative [facility] Laboratory - Chemistry and C hemistry - challengeOrdered By: Anabella Dunlap on 01-01-2022 Magnesium [Mass/Vol] 1.7 mg/dL 1.6-2.6 [facility] Laboratory - UrinalysisOrder ed By: Ronit Caruso on 01-01-2022 Hyaline casts LM Ql (Urine sed) 0-8 [LPF] 0-8 [facility] Magnesiumon 01-01-2022 Magnesium [Mass/Vol] 1.7 mg/dL Normal 1.6-2.6 [facility] Comment on above: Result Comment: PERF ORMED BY: [place] [id number] PATHOLOGIST ACTIVE DIRECTORY ENGINEER NICHOLE BOLDEN M.D. Performed By: #### D DIMER, BMP, BNP, HS TROP, CKMB, CK, CBC, PTT, PT #### [place] [phone] [facility] Nitrite Test strip Ql (U)Ord ered By: Ronit Caruso on 01-01-2022 Nitrite Ql (U) Negative Negative [facility] No Panel InformationOrdered By: Bouchra Hugo on 01-01-2022 SARS Antigen (LFIA) [facility] Partial Thromboplastin Timeo n 01-01-2022 aPTT Coag (Bld) [Time] 29.3 s Normal 25.1-36.5 [facility] Comment on above: Performed By: #### D DIMER, BMP, BNP, HS TROP, CKMB, CK, CBC, PTT, PT #### [facility] [address] [place] [phone] [facility] Protein Auto test strip (U) [Mass/Vol]Ordered By: Ronit Caruso on 01-01-2022 Protein (U) [Mass/Vol] Negative Negative [facility] Prothrombin Time INRon 01-01 INR Coag (PPP) [Relative time] 1.1 {INR} Normal [facility] Comment on above: Result Comment: INR [...] TROP, CKMB, CK, CBC, PTT, PT #### [facility] [address] [place] [phone] [facility] PT Coag (PPP) [Time] 12.6 s Normal 9.0-12.9 [facility] Comment on above: Performed By: #### D DIMER, BMP, BNP, HS TROP, CKMB, CK, CBC, PTT, PT #### [facility] [address] [place] [phone] [facility] Ya Ag Negativeon 01-02-20 Ya Ag Negative Negative Normal Negative [facility] Comment on above: Result Comment: This is a duplicate Ya SARS Antigen (GEREMIAS) result to be used for statistical tracking purpose only. PERFORMED BY: [place] [id number] PATHOLOGIST ACTIVE DIRECTORY ENGINEER NICHOLE BOLDEN M.D. Performed By: #### D DIMER, BMP, BNP, HS TROP, CKMB, CK, CBC, PTT, PT #### [address] Specific gravity Auto test s trip (U) [Rel density]Ordered By: Ronit Caruso on 01-01-2022 Specific gravity (U) [Rel density] 1.020 1.001-1.030 [facility] Squamous epithelial cells de tection in urine sediment by light microscopyOrdered By: Ronit Caruso on 01-01-2022 Epithelial cells.squamous LM Ql (Urine sed) 1-2 [HPF] 0-2 [facility] Thyroid Stimulating Hormoneo n 01-01-2022 TSH Qn 1.39 m[IU]/L Normal 0.45-5.33 [facility] Comment on above: Result Comment: PERF ORMED BY: [place] [id number] PATHOLOGIST ACTIVE DIRECTORY ENGINEER NICHOLE BOLDEN M.D. Performed By: #### D DIMER, BMP, BNP, HS TROP, CKMB, CK, CBC, PTT, PT #### [place] [address] [place] Troponin I High Sensitivityo n 01-01-2022 Troponin I High Sensitivity 8 pg/mL Normal 0-20 [facility] Comment on above: Result Comment: PERF ORMED BY: [place] [id number] PATHOLOGIST ACTIVE DIRECTORY ENGINEER NICHOLE BOLDEN M.D. Performed By: #### D DIMER, BMP, BNP, HS TROP, CKMB, CK, CBC, PTT, PT #### [place] [phone] [facility] Troponin I High Sensitivity 8 pg/mL Normal 0-20 [facility] Comment on above: Result Comment: PERF ORMED BY: [place] [phone] PATHOLOGIST ACTIVE DIRECTORY ENGINEER NICHOLE BOLDEN M.D. Performed By: #### D DIMER, BMP, BNP, HS TROP, CKMB, CK, CBC, PTT, PT #### [facility] [address] [place], [place] [phone] [facility] Troponin I High Sensitivity 5 pg/mL Normal 0-20 [facility] Comment on above: Result Comment: PERF ORMED BY: [place] [id number] PATHOLOGIST ACTIVE DIRECTORY ENGINEER NICHOLE BOLDEN M.D. Performed By: #### D DIMER, BMP, BNP, HS TROP, CKMB, CK, CBC, PTT, PT #### [facility] [address] [place] [address] Troponin I High Sensitivity 4 pg/mL Normal 0-20 [facility] Comment on above: Result Comment: PERF ORMED BY: [place] [id number] PATHOLOGIST ACTIVE DIRECTORY ENGINEER NICHOLE BOLDEN M.D. Performed By: #### D DIMER, BMP, BNP, HS TROP, CKMB, CK, CBC, PTT, PT #### [facility] [address] [place] [address] Troponin I.cardiac [Mass/vol ume] in Serum or Plasma by High sensitivity methodOrdered By: Anabella Dunlap on 01-01-2022 Troponin I.cardiac High sensitivity method [Mass/Vol] 8 pg/mL 0-20 [facility] Urine bacteria detection by automated methodOrdered By: Ronit Caruso on 01-01-2022 Bacteria Auto Ql (U) None seen None Seen [facility] Urine clarity by refractomet ry automatedOrdered By: Ronit Caruso on 01-01-2022 Clarity Refractometry automated (U) Clear Clear [facility] Urine glucose measurement by automated test strip (mass/volume)Ordered By: Ronit Caruso on 01-01-2022 Glucose Auto test strip (U) [Mass/Vol] Normal mg/dL Normal [facility] Urine hemoglobin detection b y automated test stripOrdered By: Ronit Caruso on 01-01-2022 Hemoglobin Auto test strip Ql (U) Negative Negative [facility] Urine leukocyte esterase det ection by automated test stripOrdered By: Ronit Caruso on 01-01-2022 Leukocyte esterase Auto test strip Ql (U) Negative Negative [facility] Urobilinogen Auto test strip (U) [Mass/Vol]Ordered By: Ronit Caruso on 01-01-2022 Urobilinogen (U) [Mass/Vol] Normal mg/dL Normal [facility] XR chest 1V portableon 01-01 XR chest 1V portable [facility] [place] [address] [place] [address] XRay Report Signed Patient: Esa Leavitt MR#: [id number] 623 : 1935 Acct:[id number] Age/Sex: 86 / M ADM Date: 01/01/22 Loc: Room: [address] [place] [address] Type: ADM IN Attending Dr: Ronit Caruso MD Copies to: MD Ronit Crystal MD Ordering Provider: Bouchra Hugo MD Date of Service: 12/31/21 XR/XR chest 1V portable: CHEST PAIN Plain film chestsingle view HISTORY:Midsternal chest pain. COMPARISON:None FINDINGS:Large hiatal hernia. The cardiac, mediastinal and hilar silhouettes are within normal limits. No acute lung process, pleural effusion or pneumothorax identified. RIGHT shoulder degeneration. Minimal LEFT basilar atelectasis/scarring . XR/XR chest 1V portable IMPRESSION: No acute process. Impression dictated by: Brooks Easley M.D.01/01/2022 8:02 AM Dictation Location: [place] [address] Transcribed By: [facility] 01/01/22801 Dictated By: Brooks Easley DO 01/01/22800 Signed By: 01/01/22801 [facility] pH Auto test strip (U)Ordere d By: Ronit Caruso on 01-01-2022 pH (U) 5.5 [pH] 5.0-9.0 [facility] Activated partial thrombopla stin time (aPTT) in platelet poor plasma by coagulation aOrdered By: Bouchra Hugo on 12-31-2021 aPTT Coag (PPP) [Time] 29.3 s 25.1-36.5 [facility] COVID-19 Positive/NegativeOr dered By: Bouchra Hugo on 12-31-2021 SARS-CoV-2 (COVID-19) N gene JEFF+probe Ql (Resp) Negative Negative [facility] Comment on above: Testing for SARS-CoV -2 by RT-PCR This test was developed and its performance characteristics determined by [employer]) and validated at the [facility]. This test has not been FDA [...] or revoked sooner. COVID-19 SOFIAOrdered By: Shannan Hugo on 12-31-2021 SARS-CoV+SARS-CoV-2 (COVID-19) Ag IA.rapid Ql (Resp) Negative Negative [facility] Comment on above: This is a duplicate Ya SARS Antigen (GEREMIAS) result to be used for statistical tracking purpose only. Creatine kinase [Enzymatic a ctivity/volume] in Serum or PlasmaOrdered By: Bouchra Hugo on 12-31-2021 CK [Catalytic activity/Vol] 74 U/L 22-269 [facility] Laboratory - Chemistry and C hemistry - challengeOrdered By: Bouchra Hugo on 12-31-2021 Natriuretic peptide B (Bld) [Mass/Vol] 157.0 pg/mL 5-100 [facility] Laboratory - CoagulationOrde red By: Bouchra Hugo on 12-31-2021 PT Coag (PPP) [Time] 12.6 s 9.0-12.9 [facility] Laboratory - Microbiology an d Antimicrobial susceptibilityOrdered By: Bouchra Hugo on 12-31-2021 SARS-CoV-2 (COVID-19) RNA JEFF+probe Ql (Unsp spec) N/A [facility] No Panel InformationOrdered By: Bouchra Hugo on 12-31-2021 D-Dimer Quantitative (PE/DVT) 280 ng/mL 0-243 [facility] Comment on above: The reference range [...] (INR) by coagulation assay (relatOrdered By: Bouchra Hugo on 12-31-2021 INR Coag (PPP) [Relative time] 1.1 {INR} [facility] Comment on above: INR Therapeutic Rang [...] kinase (CK) ratio by calculaOrdered By: Bouchra Hugo on 12-31-2021 CK.MB Calc [Catalytic fraction] 4.7 % 0.00-2.50 [facility] Serum or plasma creatine kin ase MB measurement (mass/volume)Ordered By: Bouchra Hugo on 12-31-2021 CK.MB [Mass/Vol] 3.5 ng/mL 0.6-6.3 [facility] Thyroxine (T4) free [Mass/vo lume] in Serum or PlasmaOrdered By: Anabella Dunlap on 12-31-2021 Free T4 [Mass/Vol] 0.95 ng/dL 0.61-1.12 [facility] Comprehensive Metabolic Pane ritika 10-07-2021 Albumin [Mass/Vol] 4.2 g/dL Normal 3.6-5.1 [facility] Comment on above: Performed By: #### C MP #### [facility] [address] [place], [place] [id number] Albumin/Globulin [Mass ratio] 1.5 {ratio} Normal 1.0-2.5 [facility] Comment on above: Performed By: #### C MP #### [facility] [address] [place], [place] [id number] ALP [Catalytic activity/Vol] 74 U/L Normal 40-129 [facility] Comment on above: Performed By: #### C MP #### [facility] [address] [place], [place] [id number] ALT [Catalytic activity/Vol] 14 U/L Normal 9-46 [facility] Comment on above: Result Comment: 04/07 Female reference range changed. Performed By: #### C MP #### [facility] [address] [place], [place] [id number] Anion gap [Moles/Vol] 18 mmol/L Normal 12-20 [facility] Comment on above: Result Comment: Effe ctive 05/13/2019 reference range changed. Performed By: #### C MP #### [facility] [address] [place], [place] [id number] AST [Catalytic activity/Vol] 18 U/L Normal 10-40 [facility] Comment on above: Performed By: #### C MP #### [facility] [address] [place], [place] [id number] Bilirubin [Mass/Vol] 0.61 mg/dL Normal 0.30-1.20 [facility] Comment on above: Performed By: #### C MP #### [facility] [address] [place], [place] [id number] BUN/CREA 52 Ratio High 6-22 [facility] Comment on above: Performed By: #### C MP #### [facility] [address] [place], [place] [id number] Calcium [Mass/Vol] 9.4 mg/dL Normal 8.6-10.2 [facility] Comment on above: Performed By: #### C MP #### [facility] [address] [place], [place] [id number] Chloride [Moles/Vol] 98 mmol/L Normal 98-107 [facility] Comment on above: Performed By: #### C MP #### [facility] [address] [place], [place] [id number] CO2 [Moles/Vol] 26 mmol/L Normal 20-31 [facility] Comment on above: Performed By: #### C MP #### [facility] [address] [place], [place] [id number] Creatinine [Mass/Vol] 0.5 mg/dL Low 0.7-1.4 [facility] Comment on above: Performed By: #### C MP #### [facility] [address] [place], [place] [id number] eGFRAA 200 mL/min/1.73m2 Normal >60 [facility] Comment on above: Performed By: #### C MP #### [facility] [address] [place], [place] [id number] eGFRNAA 165 mL/min/1.73m2 Normal >60 [facility] Comment on above: Performed By: #### C MP #### [facility] [address] [place], [place] [id number] Globulin (S) [Mass/Vol] 2.8 g/dL Normal 1.9-3.7 [facility] Comment on above: Performed By: #### C MP #### [facility] [address] [place], [place] [id number] Glucose [Mass/Vol] 119 mg/dL High 65-99 [facility] Comment on above: Result Comment: For FASTING Glucose --- ADA reference ranges: Normal 65-99 mg/dl Prediabetes 100-125 Diabetes >/= 126 Performed By: #### C MP #### [facility] [address] [place], [place] [id number] Potassium [Moles/Vol] 4.5 mmol/L Normal 3.5-5.5 [place] [facility] [facility] Comment on above: Result Comment: Spec patria is hemolyzed. Results may be affected. Performed By: #### C MP #### [facility] [address] [place], [place] [id number] Protein [Mass/Vol] 7.0 g/dL Normal 6.1-8.1 Luis E bentley [place] [facility] Comment on above: Performed By: #### C MP #### [facility] [address] [place], [place] [id number] Sodium [Moles/Vol] 137 mmol/L Normal 135-146 Luis E bentley [place] [facility] Comment on above: Performed By: #### C MP #### [facility] [address] [place], [place] [id number] Urea nitrogen [Mass/Vol] 25 mg/dL Normal 7-25 [facility] Comment on above: Performed By: #### C MP #### [facility] [address] [place], [place] [id number] MG MAMM YANY DIAG W CADon MG MAMM YANY DIAG W CAD Patient: ESA LEAVITT Exam Date: 10/16/2020 : 1935 Gender:M Ordering : DR BETO BECKWITH M.D. Admission #: [id number] Family : Order #: [id number] CLICK HERE TO VIEW EXAM RADIOLOGY REPORT [...] Treatments None Family Cancers None LOCATION: [facility] BREAST COMPOSITION: Almost entirely fatty. FINDINGS: DIAGNOSTIC [...] Menezes MD on 10/16/2020 at 11:04 Normal [facility] Vital Signs Date Time Vital Sign Value Performing Clinician Facility 01-25-2022 10:50-0400 PAIN LEVEL 0 {score} Dr. Minh Bucio [facility] 01-25-2022 10:42-0400 Body temperature 97 [degF] Dr. Minh Bucio [facility] 01-25-2022 10:42-0400 Diastolic blood pressure 80 mm[Hg[facility]-25-2022 10:42-0400 Heart rate 78 /min Dr. Minh Bucio [facility] 01-25-2022 10:42-0400 Respiratory rate 18 /min Dr. Minh Bucio [facility] 01-25-2022 10:42-0400 Systolic blood pressure 133 mm[facility]Hg[facility] [facility] 01-25-2022 07:57-0400 PAIN LEVEL 1 {score} Dr. Minh Bucio [facility] 01-25-2022 06:38-0400 PAIN LEVEL 2 {score} Dr. Minh Bucio [facility] 01-25-2022 01:51-0400 Body temperature 97.1 [degF] Dr. Minh Bucio [facility] 01-25-2022 01:51-0400 Diastolic blood pressure 65 mm[Hg] [facility] 01-25-2022 01:51-0400 Heart rate 87 /min Dr. Minh Bucio [facility] 01-25-2022 01:51-0400 Respiratory rate 17 /[facility] 01-25-2022 01:51-0400 Systolic blood pressure 162 mm[Hg] [facility] 01-25-2022 01:05-0400 PAIN LEVEL 0 {score} Dr. Minh Bucio [facility] 01-24-2022 11:04-0400 PAIN LEVEL 0 {score} Dr. Minh Bucio [facility] 01-24-2022 01:42-0400 Body temperature 96.6 [degF] Dr. Minh Groverjuwan [facility] 01-24-2022 01:42-0400 Diastolic blood pressure 60 mm[Hg] Dr. Minh Kim [facility] 01-24-2022 01:42-0400 Heart rate 75 /min Dr. Minh Bucio [facility] 01-24-2022 01:42-0400 Respiratory rate 16 /[facility] 01-24-2022 01:42-0400 Systolic blood pressure 144 mm[Hg] Dr. Minh Kim [facility] 01-24-2022 00:10-0400 PAIN LEVEL 0 {score} Dr. Minh Bucio [facility] 01-23-2022 17:21-0400 PAIN LEVEL 0 {score} Dr. Minh Bucio [facility] 01-23-2022 00:23-0400 PAIN LEVEL 1 {score} Dr. Minh Bucio [facility] 01-22-2022 18:57-0400 Body temperature 97.2 [degF] Dr. Minh Bucio [facility] 01-22-2022 18:57-0400 Diastolic blood pressure 52 mm[Hg] Dr. Minh Kim [facility] 01-22-2022 18:57-0400 Heart rate 72 /min Dr. Minh Bucio [facility] 01-22-2022 18:57-0400 Respiratory rate 1797 /min [facility] 01-22-2022 18:57-0400 Systolic blood pressure 111 mm[Hg] Dr. Minh Kim [facility] 01-22-2022 08:31-0400 PAIN LEVEL 0 {score} Dr. Minh Bucio [facility] 01-22-2022 06:38-0400 PAIN LEVEL 0 {score} Dr. Minh Bucio [facility] 01-22-2022 05:33-0400 PAIN LEVEL 3 {score} [facility] 01-22-2022 01:10-0400 PAIN LEVEL 0 {score} [facility] 01-22-2022 01:08-0400 Body temperature 96.4 [degF] [facility] 01-22-2022 01:08-0400 Diastolic blood pressure 57 mm[Hg] [facility] 01-22-2022 01:08-0400 Heart rate 70 /min Dr. Minh Bucio [facility] 01-22-2022 01:08-0400 Respiratory rate 14 /min Dr. Minh Bucio [facility] 01-22-2022 01:08-0400 Systolic blood pressure 165 mm[Hg] Dr. Minh Kim [facility] 01-21-2022 11:37-0400 PAIN LEVEL 2 {score} Dr. Minh Bucio [facility] 01-21-2022 10:07-0400 PAIN LEVEL 4 {score} Dr. Minh Bucio [facility] 01-21-2022 10:06-0400 PAIN LEVEL 4 {score} [facility] 01-21-2022 05:22-0400 Body temperature 97.8 [degF] Dr. Minh Bucio [facility] 01-21-2022 05:22-0400 Diastolic blood pressure 67 mm[Hg] [facility] 01-21-2022 05:22-0400 Heart rate 79 /[facility] 01-21-2022 05:22-0400 Respiratory rate 16 /[facility] 01-21-2022 05:22-0400 Systolic blood pressure 143 mm[Hg] Dr. Minh Kim [facility] 01-21-2022 04:22-0400 PAIN LEVEL 0 {score} Dr. Minh Bucio [facility] 01-20-2022 10:32-0400 PAIN LEVEL 1 {score} Dr. Minh Bucio [facility] 01-20-2022 04:13-0400 Body temperature 97 [degF] Dr. Minh Bucio [facility] 01-20-2022 04:13-0400 Diastolic blood pressure 64 mm[Hg] Dr. Minh Kim [facility] 01-20-2022 04:13-0400 Heart rate 88 /min Dr. Minh Bucio [facility] 01-20-2022 04:13-0400 Respiratory rate 20 /min Dr. Minh Bucio [facility] 01-20-2022 04:13-0400 Systolic blood pressure 143 mm[Hg] Dr. Minh Kim [facility] 01-20-2022 03:36-0400 PAIN LEVEL 0 {score} Dr. Minh Bucio [facility] 01-19-2022 20:16-0400 PAIN LEVEL 1 {score} Dr. Minh Bucio [facility] 01-19-2022 19:58-0400 Body temperature 96.8 [degF] Dr. Minh Bucio [facility] 01-19-2022 19:58-0400 Diastolic blood pressure 62 mm[Hg] [facility] 01-19-2022 19:58-0400 Heart rate 73 /min Dr. Minh Bucio [facility] 01-19-2022 19:58-0400 Respiratory rate 18 /min Dr. Minh Bucio [facility] 01-19-2022 19:58-0400 Systolic blood pressure 147 mm[Hg] Dr. Minh Kim [facility] 01-19-2022 19:10-0400 PAIN LEVEL 2 {score} Dr. Minh Bucio [facility] 01-19-2022 19:10-0400 PAIN LEVEL 2 {score} [facility] 01-19-2022 10:41-0400 PAIN LEVEL 0 {score} Dr. Minh Bucio [facility] 01-19-2022 06:00-0400 Oxygen saturation in Blood 92 % Dr. Minh Kim [facility] 01-19-2022 02:18-0400 Body temperature 97.8 [degF] [facility] 01-19-2022 02:18-0400 Diastolic blood pressure 70 mm[Hg] Dr. Minh Kim [facility] 01-19-2022 02:18-0400 Heart rate 87 /min Dr. Mihn Bucio [facility] 01-19-2022 02:18-0400 Respiratory rate 20 /min Dr. Minh Kim [facility] 01-19-2022 02:18-0400 Systolic blood pressure 158 mm[Hg] Dr. Minh Kim [facility] 01-19-2022 02:16-0400 PAIN LEVEL 1 {score} Dr. Minh Bucio [facility] 01-19-2022 02:16-0400 PAIN LEVEL 1 {score} [facility] 01-19-2022 00:01-0400 PAIN LEVEL 2 {score} Dr. Minh Bucio [facility] 01-18-2022 19:38-0400 PAIN LEVEL 0 {score} Dr. Minh Bucio [facility] 01-18-2022 16:25-0400 Body temperature 97.5 [degF] Dr. Minh Kim [facility] 01-18-2022 16:25-0400 Diastolic blood pressure 56 mm[Hg] Dr. Minh Kim [facility] 01-18-2022 16:25-0400 Heart rate 76 /[facility] 01-18-2022 16:25-0400 Respiratory rate 15 /min Dr. Minh Kim [facility] 01-18-2022 16:25-0400 Systolic blood pressure 128 mm[Hg] Dr. Minh Kim [facility] 01-18-2022 11:17-0400 PAIN LEVEL 0 {score} Dr. Minh Bucio [facility] 01-18-2022 09:31-0400 PAIN LEVEL 5 {score} Dr. Minh Kim [facility] 01-18-2022 09:30-0400 PAIN LEVEL 5 {score} Dr. Minh Bucio [facility] 01-18-2022 02:08-0400 PAIN LEVEL 0 {score} Dr. Minh Bucio [facility] 01-17-2022 16:19-0400 PAIN LEVEL 0 {score} Dr. Minh Rodriguezue [facility] 01-17-2022 09:50-0400 PAIN LEVEL 0 {score} Dr. Minh Bucio [facility] 01-17-2022 06:42-0400 PAIN LEVEL 0 {score} [facility] 01-17-2022 00:29-0400 PAIN LEVEL 3 {score} [facility] 01-17-2022 00:29-0400 PAIN LEVEL 3 {score} [facility] 01-16-2022 17:57-0400 Body temperature 97.4 [degF] Dr. Minh Bucio [facility] 01-16-2022 17:57-0400 Diastolic blood pressure 67 mm[Hg] Dr. Minh Kim [facility] 01-16-2022 17:57-0400 Heart rate 77 /min Dr. Minh Bucio [facility] 01-16-2022 17:57-0400 Oxygen saturation in Blood 97 % Dr. Minh Kim [facility] 01-16-2022 17:57-0400 Respiratory rate 17 /min Dr. Minh Kim [facility] 01-16-2022 17:57-0400 Systolic blood pressure 153 mm[Hg] Dr. Minh Kim [facility] 01-16-2022 11:52-0400 Body weight 73.[address] Minh Bucio [facility] 01-16-2022 10:02-0400 PAIN LEVEL 0 {score} Dr. Minh Bucio [facility] 01-16-2022 09:26-0400 Body temperature 98 [degF] Dr. Minh Bucio [facility] 01-16-2022 09:26-0400 Diastolic blood pressure 55 mm[Hg] Dr. Minh Kim [facility] 01-16-2022 09:26-0400 Heart rate 81 /min Dr. Minh Kim [facility] 01-16-2022 09:26-0400 Respiratory rate 17 /min Dr. Minh Bucio [facility] 01-16-2022 09:26-0400 Systolic blood pressure 113 mm[Hg] Dr. Minh Kim [facility] 01-16-2022 09:03-0400 PAIN LEVEL 1 {score} [facility] 01-16-2022 07:56-0400 PAIN LEVEL 4 {score} [facility] 01-16-2022 02:08-0400 PAIN LEVEL 0 {score} [facility] 01-15-2022 21:31-0400 Body temperature 97.6 [degF] [facility] 01-15-2022 21:31-0400 Diastolic blood pressure 57 mm[Hg] Dr. Minh Kim [facility] 01-15-2022 21:31-0400 Heart rate 75 /min Dr. Minh Bucio [facility] 01-15-2022 21:31-0400 Oxygen saturation in Blood 97 % Dr. Minh Kim [facility] 01-15-2022 21:31-0400 Respiratory rate 20 /min Dr. Minh Bucio [facility] 01-15-2022 21:31-0400 Systolic blood pressure 110 mm[Hg] [facility] 01-15-2022 11:34-0400 Body temperature 97.9 [degF] Dr. Minh Bucio [facility] 01-15-2022 11:34-0400 Diastolic blood pressure 66 mm[Hg] [facility] 01-15-2022 11:34-0400 Heart rate 97 /min Dr. Minh Bucio [facility] 01-15-2022 11:34-0400 Respiratory rate 17 /min Dr. Minh Groverjuwan [facility] 01-15-2022 11:34-0400 Systolic blood pressure 102 mm[Hg] Dr. Minh Kim [facility] 01-15-2022 09:58-0400 PAIN LEVEL 1 {score} Dr. Minh Bucio [facility] 01-15-2022 05:43-0400 Body temperature 97.6 [degF] Dr. Minh Bucio [facility] 01-15-2022 05:43-0400 Diastolic blood pressure 58 mm[Hg] Dr. Minh Kim [facility] 01-15-2022 05:43-0400 Heart rate 68 /min Dr. Minh Bucio [facility] 01-15-2022 05:43-0400 Respiratory rate 16 /[facility] 01-15-2022 05:43-0400 Systolic blood pressure 190 mm[Hg] Dr. Minh Kim [facility] 01-15-2022 00:04-0400 PAIN LEVEL 0 {score} Dr. Minh Bucio [facility] 01-14-2022 20:03-0400 PAIN LEVEL 0 {score} Dr. Minh Bucio [facility] 01-14-2022 16:01-0400 Body temperature 97.6 [degF] Dr. Minh Bucio [facility] 01-14-2022 16:01-0400 Diastolic blood pressure 58 mm[Hg] Dr. Minh Kim [facility] 01-14-2022 16:01-0400 Heart rate 68 /min Dr. Minh Kim [facility] 01-14-2022 16:01-0400 Systolic blood pressure 140 mm[Hg] Dr. Minh Kim [facility] 01-14-2022 10:14-0400 PAIN LEVEL 0 {score} Dr. Minh Bucio [facility] 01-14-2022 04:44-0400 PAIN LEVEL 0 {score} [facility] 01-13-2022 21:34-0400 Body temperature 97.2 [degF] Dr. Minh Bucio [facility] 01-13-2022 21:34-0400 Diastolic blood pressure 65 mm[Hg] Dr. Minh Kim [facility] 01-13-2022 21:34-0400 Heart rate 75 /[facility] 01-13-2022 21:34-0400 Systolic blood pressure 139 mm[Hg] Dr. Minh Kim [facility] 01-13-2022 20:03-0400 PAIN LEVEL 0 {score} Dr. Minh Bucio [facility] 01-13-2022 12:41-0400 Body temperature 97.2 [degF] [facility] 01-13-2022 12:41-0400 Diastolic blood pressure 66 mm[Hg] [facility] 01-13-2022 12:41-0400 Heart rate 82 /min Dr. Minh Groverjuwan [facility] 01-13-2022 12:41-0400 Respiratory rate 16 /min Dr. Minh Kim [facility] 01-13-2022 12:41-0400 Systolic blood pressure 125 mm[Hg] Dr. Minh Kim [facility] 01-13-2022 09:40-0400 PAIN LEVEL 0 {score} Dr. Minh Bucio [facility] 01-13-2022 00:58-0400 PAIN LEVEL 0 {score} [facility] 01-12-2022 11:51-0400 Body temperature 97.7 [degF] Dr. Minh Bucio [facility] 01-12-2022 11:51-0400 Diastolic blood pressure 60 mm[Hg] Dr. Minh Kim [facility] 01-12-2022 11:51-0400 Heart rate 80 /[facility] 01-12-2022 11:51-0400 Respiratory rate 16 /min Dr. Minh Bucio [facility] 01-12-2022 11:51-0400 Systolic blood pressure 130 mm[Hg] Dr. Minh Kim [facility] 01-12-2022 10:17-0400 PAIN LEVEL 0 {score} Dr. Minh Bucio [facility] 01-12-2022 04:33-0400 Body temperature 96.8 [degF] Dr. Minh Bucio [facility] 01-12-2022 04:33-0400 Diastolic blood pressure 67 mm[Hg] Dr. Minh Kim [facility] 01-12-2022 04:33-0400 Heart rate 66 /[facility] 01-12-2022 04:33-0400 Respiratory rate 16 /[facility] 01-12-2022 04:33-0400 Systolic blood pressure 143 mm[Hg] Dr. Minh Kim [facility] 01-11-2022 16:00-0400 Body temperature 97.1 [degF] Dr. Minh Bucio [facility] 01-11-2022 16:00-0400 Diastolic blood pressure 67 mm[Hg] Dr. Minh Kim [facility] 01-11-2022 16:00-0400 Heart rate 66 /min Dr. Minh Bucio [facility] 01-11-2022 16:00-0400 Respiratory rate 18 /min Dr. Minh Groverjuwan [facility] 01-11-2022 16:00-0400 Systolic blood pressure 143 mm[Hg] Dr. Minh Kim [facility] 01-11-2022 09:48-0400 PAIN LEVEL 0 {score} Dr. Minh Bucio [facility] 01-11-2022 09:07-0400 Body temperature 97.5 [degF] Dr. Minh Bucio [facility] 01-11-2022 09:07-0400 Diastolic blood pressure 74 mm[Hg] [facility] 01-11-2022 09:07-0400 Heart rate 90 /min Dr. Minh Bucio [facility] 01-11-2022 09:07-0400 Oxygen saturation in Blood 97 % Dr. Minh Kim [facility] 01-11-2022 09:07-0400 Respiratory rate 20 /min Dr. Minh Bucio [facility] 01-11-2022 09:07-0400 Systolic blood pressure 141 mm[Hg] Dr. Minh Kim [facility] 01-11-2022 04:32-0400 Body temperature 97.6 [degF] Dr. Minh Bucio [facility] 01-11-2022 04:32-0400 Diastolic blood pressure 52 mm[Hg] Dr. Minh Kim [facility] 01-11-2022 04:32-0400 Heart rate 85 /min Dr. Minh Bucio [facility] 01-11-2022 04:32-0400 Respiratory rate 17 /min Dr. Minh Bucio [facility] 01-11-2022 04:32-0400 Systolic blood pressure 134 mm[Hg] Dr. Minh Kim [facility] 01-11-2022 00:16-0400 PAIN LEVEL 0 {score} Dr. Minh Bucio [facility] 01-10-2022 15:56-0400 Body temperature 97.7 [degF] Dr. Minh Bucio [facility] 01-10-2022 15:56-0400 Diastolic blood pressure 92 mm[Hg] [facility] 01-10-2022 15:56-0400 Heart rate 75 /min Dr. Minh Bucio [facility] 01-10-2022 15:56-0400 Respiratory rate 20 /min Dr. Minh Bucio [facility] 01-10-2022 15:56-0400 Systolic blood pressure 142 mm[Hg] [facility] 01-10-2022 04:23-0400 Body temperature 98.2 [degF] Dr. Minh Bucio [facility] 01-10-2022 04:23-0400 Diastolic blood pressure 58 mm[Hg] Dr. Minh Groverjuwan [facility] 01-10-2022 04:23-0400 Heart rate 70 /min Dr. Minh Bucio [facility] 01-10-2022 04:23-0400 Respiratory rate 16 /[facility] 01-10-2022 04:23-0400 Systolic blood pressure 127 mm[Hg] Dr. Minh Kim [facility] 01-09-2022 18:43-0400 PAIN LEVEL 0 {score} Dr. Minh Bucio [facility] 01-09-2022 10:11-0400 PAIN LEVEL 0 {score} Dr. Minh Bucio [facility] 01-09-2022 05:23-0400 PAIN LEVEL 0 {score} Dr. Minh Bucio [facility] 01-08-2022 19:46-0400 PAIN LEVEL 0 {score} Dr. Minh Bucio [facility] 01-08-2022 09:38-0400 PAIN LEVEL 0 {score} Dr. Minh Bucio [facility] 01-07-2022 19:44-0400 Body temperature 96.7 [degF] Dr. Minh Bucio [facility] 01-07-2022 19:44-0400 Diastolic blood pressure 60 mm[Hg] Dr. Minh Kim [facility] 01-07-2022 19:44-0400 Heart rate 74 /min Dr. Minh Bucio [facility] 01-07-2022 19:44-0400 Respiratory rate 14 /[facility] 01-07-2022 19:44-0400 Systolic blood pressure 134 mm[Hg] Dr. Minh Kim [facility] 01-07-2022 12:14-0400 Body temperature 97.3 [degF] Dr. Minh Bucio [facility] 01-07-2022 12:14-0400 Diastolic blood pressure 59 mm[Hg] Dr. Minh Kim [facility] 01-07-2022 12:14-0400 Heart rate 68 /min Dr. Minh Bucio [facility] 01-07-2022 12:14-0400 Respiratory rate 17 /min Dr. Minh Bucio [facility] 01-07-2022 12:14-0400 Systolic blood pressure 125 mm[Hg] Dr. Minh Kim [facility] 01-07-2022 11:26-0400 Body temperature 97.3 [degF] Dr. Minh Bucio [facility] 01-07-2022 11:26-0400 Diastolic blood pressure 59 mm[Hg] [facility] 01-07-2022 11:26-0400 Heart rate 68 /[facility] 01-07-2022 11:26-0400 Oxygen saturation in Blood 94 % Dr. Minh Kim [facility] 01-07-2022 11:26-0400 Respiratory rate 17 /[facility] 01-07-2022 11:26-0400 Systolic blood pressure 125 mm[Hg] Dr. Minh Kim [facility] 01-07-2022 09:26-0400 PAIN LEVEL 0 {score} Dr. Minh Bucio [facility] 01-07-2022 00:21-0400 PAIN LEVEL 0 {score} Dr. Minh Bucio [facility] 01-06-2022 18:24-0400 Body temperature 96.8 [degF] Dr. Minh Bucio [facility] 01-06-2022 18:24-0400 Diastolic blood pressure 89 mm[Hg] Dr. Minh Kim [facility] 01-06-2022 18:24-0400 Heart rate 77 /[facility] 01-06-2022 18:24-0400 Respiratory rate 18 /min Dr. Minh Bucio [facility] 01-06-2022 18:24-0400 Systolic blood pressure 155 mm[Hg] Dr. Minh Kim [facility] 01-06-2022 16:35-0400 Body weight 73.[address] [facility] 01-06-2022 15:33-0400 PAIN LEVEL 0 {score} Dr. Minh Groverjuwan [facility] 01-06-2022 15:32-0400 Body temperature 97.7 [degF] [facility] 01-06-2022 15:32-0400 Diastolic blood pressure 70 mm[Hg] Dr. Minh Kim [facility] 01-06-2022 15:32-0400 Heart rate 74 /min Dr. Minh Bucio [facility] 01-06-2022 15:32-0400 Oxygen saturation in Blood 94 % Dr. Minh Kim [facility] 01-06-2022 15:32-0400 Respiratory rate 20 /min Dr. Minh Bucio [facility] 01-06-2022 15:32-0400 Systolic blood pressure 160 mm[Hg] Dr. Minh Kim [facility] 01-06-2022 11:44-0400 Body temperature 97.8 [degF] II Beto Beckwith Work Phone: [facility] 01-06-2022 11:44-0400 Diastolic blood pressure 80 mm[Hg] II Beto Beckwith Work Phone: [facility] 01-06-2022 11:44-0400 Heart rate 73 /min II Beto Beckwith Work Phone: [facility] 01-06-2022 11:44-0400 Respiratory rate 16 /min II Beto Beckwith Work Phone: [facility] 01-06-2022 11:44-0400 SaO2% (BldA) [Mass fraction] 97 % II Beto Beckwith Work Phone: [facility] 01-06-2022 11:44-0400 Systolic blood pressure 132 mm[Hg] II Beto Beckwith Work Phone: [facility] 01-06-2022 08:00-0400 Inhaled oxygen flow rate 2 L/min II Beto Beckwith Work Phone: [facility] 01-06-2022 06:22-0400 Body weight 74 kg II Beto Beckwith Work Phone: [facility] 01-04-2022 13:29-0400 Body height 172.72 cm II Beto Beckwith Work Phone: [facility] Encounters Encounter Date Encounter Type Care Provider Facility Start: 06-26-2023 End: 07-05-2023 Evaluation and management of inpatient WILL PECK [facility] Start: 03-29-2023 End: 03-29-2023 ambulatory BETO BECKWITH Not Available Start: 01-25-2022 End: 01-25-2022 ambulatory Minh Kim Facility:[facility] Start: 01-25-2022 End: 01-25-2022 Patient encounter procedure II Betokiara Beckwith Work Phone: [facility] Start: 01-11-2022 End: 01-11-2022 ambulatory Minh Kim Facility:[facility] Start: 01-11-2022 End: 01-11-2022 Patient encounter procedure II Beto Beckwith Work Phone: [facility] Start: 01-06-2022 End: 01-25-2022 Evaluation and management of inpatient Minh Kim [facility] Start: 01-04-2022 ambulatory Mccrary Downey Facility :[id number] Start: 01-03-2022 ambulatory Filipe Doyle Facilit y:[id number] Start: 01-02-2022 ambulatory Mccrary Downey Facility :[id number] Start: 01-01-2022 End: 01-06-2022 Evaluation and management of inpatient Anabella Herbert Anatoly Stone Facility:[facility] Start: 01-01-2022 ambulatory Mccrary [facility] Facility :[id number] Start: 01-01-2022 End: 01-06-2022 Evaluation and management of inpatient II Beto Beckwith Work Phone: [facility] Start: 10-16-2020 End: 10-17-[address] BETO BECKWITH Facility:[facility] Start: 07-29-2020 End: 07-30-2020 ambulatory NONE LISTED REQUEST Facility:[facility] Start: 07-02-2020 End: 07-03-[address] NONE LISTED REQUEST Facility:[facility] Start: 06-25-2020 End: 06-26-2020 ambulatory NONE LISTED REQUEST Facility: Procedures Date Procedure Procedure Detail Performing Clinician Start: 01-03-2022 Radionuclide myocard ial perfusion stress study II Beto Beckwith Work Phone: Start: 01-01-2022 CT of thorax with contrast II Beto Beckwith Work Phone: Start: 12-31-2021 Plain chest X-ray II Charles Beckwith Work Phone: Blood culture for bacteria, including anaerobic screen II Beto Beckwith Work Phone: SARS Antigen (LFIA) II Luis Beckwith Work Phone: Plan of Treatment Date Care Activity Detail Author Start: 01-06-2022 [facility] Work Phone: Start: 01-01-2022 Referral to engraver machine [facility] Work Phone: Start: 01-01-2022 Hospital admission [facility] Work Phone: Patient referral [facility] Work Phone: Immunizations Immunization Date Immunization Notes Care Provider Fa cili 03-15-2021 influenza, high-dose seasonal, quadrivalent, .7mL dose, preservative free Dr. Minh Kim [facility] 07-29-2020 SARS-COV-2 (COVID-19 ) vaccine, mRNA, spike protein, LNP, bivalent booster, preservative free, 50 mcg/0.5 mL or 25 mcg/0.[address] Minh Kim [facility] 07-02-2020 SARS-COV-2 (COVID-19 ) vaccine, mRNA, spike protein, LNP, bivalent booster, preservative free, 50 mcg/0.5 mL or 25 mcg/0.[address] Minh Kim [facility] 03-05-2019 pneumococcal polysaccharide vaccine, [address] Minh Kim [facility] 05-11-2016 tuberculin skin test ; unspecified formulation [facility] 05-04-2016 tuberculin skin test ; unspecified formulation Dr. Minh Kim [facility] 05-03-[address] Min[address] Kim [facility] 03-07-2016 pneumococcal conjuga te vaccine, [address] Minh Kim [facility] Payers Date Payer Category Payer Unknown [id number] 2021 Medicare [id number] 2021 Self-pay [id number] 1959 Self-pay [id number] 1959 Unknown [id number] 1934 Unknown [id number] 2.16.84 0.1.191987.3.579.2.593 1934 Unknown [id number] 2.16. 840.1.421271.3.579.2.356 1934 Unknown [id number] 2.16. 840.1.959440.3.579.2.356 1934 Unknown [id number] 2.16. 840.1.882727.3.579.2.356 1934 Unknown [id number] 2.16. 840.1.293735.3.579.2.356 1934 Unknown [id number] 2.16. 840.1.794385.3.579.2.356 1934 Unknown [id number] 2.16.840 .1.753760.3.579.2.1259 1934 Unknown [id number] 2.16. 840.1.950661.3.579.2.175 Unknown [id number] 2.16.84 0.1.554042.3.579.2.593 Unknown [id number] 2.16.84 0.1.518814.3.579.2.593 Unknown [id number] 2.16.84 0.1.663847.3.579.2.593 Unknown Rafael Gonzalez BC/BS [id number] Unknown [employer] [id number] Unknown [id number] 2.16.8 40.1.670417.3.579.2.531 Unknown [id number] 2.16.8 40.1.816572.3.579.2.531 Unknown [id number] 2.16.8 40.1.064733.3.579.2.531 Social History Date Type Detail Facility Start: 01-01-2022 Tobacco smoking stat us WIIS Ex-smoker (finding) [facility] Start: 1935 Sex Assigned At Male F [facility] Start: 01-06-2022 Unknown if vivian ruth smoked [facility] Goals Date Patient Goal Desired Activity /State Functional Status Date Assessment Result Facility 01-06-2022 Functional status Patient at Baseline [facility] Work Phone: Mental Status Date Assessment Result Facility 01-06-2022 Cognitive function Cognitive Sta tus Patient at Baseline [facility] Work Phone: Clinical Notes 01-01-2022 to 06-29-2023 Note Date & Type Note Facility 06-29-2023 Note PROCEDURE: IR FLUOROSCOPY GUIDED CENTRAL VENOUS ACCESS DEVICE PLACEMENT 06/29/2023 HISTORY: ORDERING SYSTEM PROVIDED HISTORY: needs central line TECHNOLOGIST PROVIDED HISTORY: Needs central line CONTRAST: None SEDATION: None FLUOROSCOPY DOSE AND TYPE: Fluoro time 0.8 minutes DAP 291.75 uGy m 2 Views: 6 DESCRIPTION OF PROCEDURE: This procedure was performed by Emmanuel Clark PA-C under indirect supervision of Dr. Brambila. Informed consent was obtained after a detailed explanation of the procedure including risks. [place] protocol was observed using maximum sterile barrier technique. All elements of maximal sterile barrier technique, including cap, mask, sterile gown, sterile gloves, a large sterile sheet, hand hygiene and 2% chlorhexidine for cutaneous antisepsis were followed. Using ultrasound guidance and after anesthetizing the skin with one percent lidocaine, a micropuncture needle was advanced into the patent right internal jugular vein. An ultrasound image demonstrating patency of the vein with needle tip located within it was obtained and stored in PACS. A microwire was inserted under fluoroscopic guidance, and the needle was exchanged for a 5 [place] sheath. The microwire was exchanged for an 0.035 wire, and the tract was dilated to accommodate a 7 [place] by 20 cm non tunneled triple-lumen central venous catheter. An image was saved demonstrating the catheter tip in the right atrium. The catheter flushed and aspirated appropriately. This was sutured to the skin using 2-0 Ethilon and dressed appropriately. Estimated blood loss was 2 mL. The patient tolerated the procedure well and left the department stable condition. FINDINGS: Tip of central venous catheter situated in the right atrium. IMPRESSION: Successful placement of a central venous catheter via the right internal jugular vein. Okay to use. Interpreted by: Bouchra Brambila MD Redfox, Jacob, PA Signed by: Bouchra Brambila MD 06/29/[address] [facility] 01-05-2022 Progress note Note Date/Time January 05, 2022 12:53pm [facility] [address] [place] [address] Hospitalist Progress Note Signed Patient: Esa Leavitt MR#: [id number] : 1935 Acct:[id number] Age/Sex: 86 / M Adm Date: 2 Loc: Room: [address] [place] [address] Type: ADM IN Attending Dr: Mohsen Muniz [...] Tab.Chew PO 01/01/23 08:59 81 mg DAILY MSAOOD Administration Atorvastatin Calcium 20 mg 01/01/22 09:00 [...] Ml Insuln.Pen SUBCUT 01/01/23 16:59 Not Given TID.[facility] Protocol Ketorolac Tromethamine 30 mg 01/03/22 17:44 01/05/22 08:05 Ketorolac Tromethamine 30 Mg/Ml Vial IV-PUSH 01/08/22 17:43 30 mg Q6H PRN Administration Severe Pain Labetalol HCl 5 mg 01/01/22 00:08 Labetalol 100 Mg/20 Ml Vial IV-PUSH 01/01/23 00:07 Q4H PRN Hypertension Metoprolol Succinate 50 mg 01/01/22 09:00 01/05/22 08:05 Metoprolol Succinate 50 Mg Tab.Er.24h PO 01/01/23 08:59 50 mg DAILY [facility] Administration Nitroglycerin 0.4 mg 01/01/22 00:08 Nitroglycerin 0.4 Mg Tab.Subl SUBLINGUAL 01/01/23 00:07 Q5M PRN Chest Pain Omeprazole 20 mg 01/06/22 09:00 Omeprazole [address] RAMIREZ 01/06/23 08:59 DAILY [facility] Ondansetron HCl 4 mg 01/01/22 00:08 Ondansetron [...] Cont patient on Eliquis given his elevated CQJ0XV0-GEWx score Generalized deconditioning PT/OT assessment recommends SNF [...] Continue his home medications Documented By: Mohsen uMniz MD 2 1249 Signed By: <Electronically signed by Mohsen Muniz MD> 01/05/22 1253 [facility] Work Phone: 1(505) 600-700008-30-2022 Progress note [facility] January 04, 2022 4:33pm Note Date/Time January 04, 2022 4: 29pm [facility] [address] [place] [address] Cardiology Progress Note Signed Patient: Esa Leavitt MR#: [id number] : 1935 Acct:[id number] Age/Sex: 86 / M Adm Date: 2 Loc: Room: [address] [place] [address] Type: ADM IN Attending Dr: Mohsen Muniz [...] % (Auto) 76.0 Lymph % (Auto) 8.6 Isabel[place] % (Auto) 12.6 Eos % (Auto) 2.3 Baso % (Auto) 0.5 Neut # (Auto) 4.6 Lymph # (Auto) 0.5 L [place] # (Auto) 0.8 Eos # (Auto) 0.1 [...] MPV Neut % (Auto) Lymph % (Auto) [place] % (Auto) Eos % (Auto) Baso % (Auto) Neut # (Auto) Lymph # (Auto) [place] # (Auto) Eos # (Auto) Baso # [...] MPV Neut % (Auto) Lymph % (Auto) [place] % (Auto) Eos % (Auto) Baso % (Auto) Neut # (Auto) Lymph # (Auto) [place] # (Auto) Eos # (Auto) Baso # [...] Plan: Continue present medications Documented By: Demetra Downey MD, [facility] 2 1628 Signed By: <Electronically signed by [facility] Demetra Downey> 01/04/22 1633 [facility] Work Phone: 1(277) 520-296308-30-2022 Progress note Author Mohsen Muniz [facility] January 04, 2022 11:51am Note Date/Time January 04, 2022 11 :51am [facility] [address] [place] [address] Hospitalist Progress Note Signed Patient: Esa Leavitt MR#: [id number] : 1935 Acct:[id number] Age/Sex: 86 / M Adm Date: 2 Loc: Room: [address] [place] [address] Type: ADM IN Attending Dr: Mohsen Muniz [...] Insuln.Pen SUBCUT 01/01/23 16:59 Not Given TID.WM.HS [facility] Protocol Ketorolac Tromethamine 30 mg 01/03/22 17:44 [...] Cont patient on Eliquis given his elevated [id number] score Generalized deconditioning PT/OT assessment recommends SNF [...] signed by Mohsen Muniz MD> 01/04/22 1151 [facility] Work Phone: [phone] 143-652208-29-2022 Progress note Author Mohsen Muniz [facility] January 03, 2022 7:41pm Note Date/Time January 03, 2022 7: 16pm [facility] [address] [place] [address] Hospitalist Progress Note Signed Patient: Esa Leavitt MR#: [id number] : 1935 Acct:[id number] Age/Sex: 86 / M Adm Date: 2 Loc: Room: [address] [place] [address] Type: ADM IN Attending Dr: Mohsen Muniz [...] Insuln.Pen SUBCUT 01/01/23 16:59 Not Given TID.WM.HS [facility] Protocol Ketorolac Tromethamine 30 mg 01/03/22 17:44 [...] Cont patient on Eliquis given his elevated JTE7IL6-AVVi score Generalized deconditioning PT/OT assessment recommends SNF [...] <Electronically signed by Mohsen Muniz MD> 01/03/221940 [facility] Work Phone: 1([phone] 485-118008-29-2022 Progress note Author Demetra Downey [facility] January 03, 2022 12:51pm Note Date/Time January 03, 2022 12 :46[facility] [address] [place] [address] Cardiology Progress Note Signed Patient: Esa Leavitt MR#: [id number] : 1935 Acct:[id number] Age/Sex: 86 / M Adm Date: 2 Loc: 3T Room: [address] [place] [address] Type: ADM IN Attending Dr: Mohsen Muniz [...] pain, unspecified Status: Acute Documented By: Demetra Downey MD, [facility] 2 1245 Signed By: <Electronically signed by [facility] Demetra Downey> 01/03/22 1251 [facility] Work Phone: 1([phone] 168-644508-28-2022 Progress note Author Ronit Caruso [facility] January 02, 2022 6:16pm Note Date/Time January 02, 2022 6: 16pm [facility] [address] [place] [address] Hospitalist Progress Note Signed Patient: Esa Leavitt MR#: [id number] : 1935 Acct:[id number] Age/Sex: 86 / M Adm Date: 2 Loc: Room: [address] [place] [address] Type: ADM IN Attending Dr: Ronit Caruso [...] Insuln.Pen SUBCUT 01/01/23 16:59 Not Given TID.WM.HS [facility] Protocol Labetalol HCl 5 mg 01/01/22 00:08 [...] Start patient on Eliquis given his elevated DDH1BO2-HEPj score ? Echo is pending ? Check [...] <Electronically signed by Ronit Caruso MD> 01/02/221815 [facility] Work Phone: 1([phone]) 541-408608-28-2022 Progress note Author Demetra Downey [facility] January 02, 2022 1:39pm Note Date/Time January 02, 2022 1: 35pm [facility] [address] [place] [address] Cardiology Progress Note Signed Patient: Esa Leavitt MR#: [id number] : 1935 Acct:[id number] Age/Sex: 86 / M Adm Date: 2 Loc: Room: [address] [place] [address] Type: ADM IN Attending Dr: Ronit Caruso [...] MPV Neut % (Auto) Lymph % (Auto) Isabela % (Auto) Eos % (Auto) Baso % (Auto) Neut # (Auto) Lymph # (Auto) Isabela # (Auto) Eos # (Auto) Baso # (Auto) Nucleated RBC % (auto) PHA Creatinine Clear Sodium Potassium Chloride Carbon Dioxide BUN Creatinine Est GFR ( Amer) Est GFR (Non-Af Amer) Glucose POC Glucose 130 159 POC Glucose Comment Calcium Urine Color [place] A Urine Appearance Clear Urine pH 5.5 Ur Specific [place] 1.020 Urine Protein Negative Urine Glucose (UA) [...] % (Auto) 79.0 Lymph % (Auto) 9.0 Isabela % (Auto) 11.1 Eos % (Auto) 0.3 Baso % (Auto) 0.6 Neut # (Auto) 7.4 Lymph # (Auto) 0.8 L Isabela # (Auto) 1.0 H Eos # (Auto) [...] Color Urine Appearance Urine pH Ur Specific [place] Urine Protein Urine Glucose (UA) Urine Ketones Urine Occult Blood Urine Nitrite Urine Bilirubin Urine Urobilinogen Ur Leukocyte Esterase Urine RBC Urine WBC Ur Squamous Epith Cells Urine Bacteria Hyaline Casts 01/02/22 11:42 Corrected WBC Uncorrected WBC Count RBC Hgb Hct MCV MCH MCHC RDW Plt Count MPV Neut % (Auto) Lymph % (Auto) Isabela % (Auto) Eos % (Auto) Baso % (Auto) Neut # (Auto) Lymph # (Auto) Isabel[place] # (Auto) Eos # (Auto) Baso # (Auto) Nucleated RBC % (auto) PHA Creatinine Clear Sodium Potassium Chloride Carbon Dioxide BUN Creatinine Est GFR ( Amer) Est GFR (Non-Af Amer) Glucose POC Glucose 144 POC Glucose Comment Glu2: cleaned meter Calcium Urine Color Urine Appearance Urine pH Ur Specific [place] Urine Protein Urine Glucose (UA) Urine Ketones [...] Cardiolite stress test tomorrow Documented By: Demetra Downey MD, [facility] 2 1332 Signed By: <Electronically signed by MD AIDA Downey> 01/02/22 1330 [facility] Work Phone: [phone]) [phone] Consult note Author Anderson Ambrosio [facility] January 01, 2022 4:03pm Note Date/Time January 01, 2022 4: 02pm [facility] [address] [place] [address] Cardiology Consult Note Signed Patient: Esa Leavitt MR#: [id number] : 1935 Acct:[id number] Age/Sex: 86 / M Adm Date: 2 Loc: Room: [address] [place] [address] Type: ADM IN Attending Dr: Ronit Caruso [...] was brought to the emergency department at [facility]. He was found by first EKG [...] Use Type: Alcohol Substance Abuse Comment: 2-3 MARTINI'S DAY Meds Medications and Allergies Allergies No [...] (Auto) 0.6 L 0.6 L (1.00-4.8) x10E3/uL Isabela # (Auto) 0.9 H 1.5 H (0.0-0.8) [...] <Electronically signed by Anderson Ambrosio MD> 01/01/22 5011 [facility] Work Phone: [phone]) [phone] Progress note Author Ronit Caruso [facility] January 01, 2022 2:37pm Note Date/Time January 01, 2022 2: 37pm [facility] [address] [place] [address] Hospitalist Progress Note Signed Patient: Esa Leavitt MR#: [id number] : 1935 Acct:[id number] Age/Sex: 86 / M Adm Date: 2 Loc: 3T Room: [address] [place] [address] Type: ADM IN Attending Dr: Ronit Caruso [...] Name Hadleyq PRN Reason Stop Dose Admin Apixaban 5 [...] 01/01/22 09:00 Ferrous Sulfate 324 Mg Tablet.Dr RAMIREZ 01/01/23 08:59 324 mg DAILY [facility] Administration [...] Flush Documented By: Ronit Caruso MD 01/01/22 4835 Signed By: <Electronically signed by Ronit Caruso MD> 01/01/22 1437 [facility] Work Phone: 1([phone]) [phone] History and physical note Author Anabella Dunlap [facility] January 01, 2022 12:22am Note Date/Time January 01, 2022 12 :22am [facility] [address] [place] [address] Hospitalist H&P Signed Patient: Esa Leavitt MR#: [id number] : 1935 Acct:[id number] Age/Sex: 86 / M Adm Date: 2 Loc: ER Room: Type: [facility] ER Attending Dr: Copies to: [...] History (Updated 01/01/22 @ 00:18 by Bouchra Hugo MD) Diabetes mellitus Hyperlipidemia Hypertension Social History [...] g/dL (32.5-35.6) 12/31/21:45 RDW 13.3 % (12.0-14.8) 12/31/21:45 Plt Count 254 x10E3/uL (150-450) 12/31/21 22:45 MPV 8.7 fl (6.6-10.1) 12/31/21 22:45 Neut % (Auto) 88.6 % (.) 12/31/21:45 Lymph % (Auto) 4.3 % (.) 12/31/21:45 Isabela % (Auto) 6.6 % (.) 12/31/21:45 Eos % (Auto) 0.2 % (.) 12/31/21:45 Baso % (Auto) 0.3 % (.) 12/31/21:45 Neut # (Auto) 12.3 x10E3/uL (1.8-7.7) H 12/31/21:45 Lymph # (Auto) 0.6 x10E3/uL (1.00-4.8) L 12/31/21:45 Isabela # (Auto) 0.9 x10E3/uL (0.0-0.8) H 12/31/21 22:45 Eos # (Auto) 0.0 x10E3/uL (0.0-0.45) 12/31/21 22:45 Baso # (Auto) 0.0 x10E3/uL (0.0-0.2) 12/31/21:45 Nucleated RBC % (auto) 0.1 % (0-0.5) 12/31/21:45 PT 12.6 Seconds (9.0-12.9) 12/31/21 22:45 INR 1.1 12/31/21:45 APTT 29.3 Seconds (25.1-36.5) 12/31/21 22:45 D-Dimer Quant (PE/DVT) 280 ng/mL (0-243) H 08/26/22 22:45 PHA Creatinine Clear N/A 12/31/21 22:45 [...] Start patient on Eliquis given his elevated XDH3IQ4-WJCp score ? Echo is pending ? Check TSH and free T4 *Chronic medical issues 1. Hypertension 2. Diabetes 3. Hyperlipidemia ? Continue his home medications Documented By: Anabella Stone MD 2 0014 Signed By: <Electronically signed by Anabella Stone MD> 01/01/22 0022 [facility] Work Phone: Consult note Author Anderson Ambrosio [facility] January 01, 2022 4:03pm Note Date/Time January 01, 2022 4: 02pm [facility] [address] [place] [address] Cardiology Consult Note Signed Patient: Esa Leavitt MR#: [id number] : 1935 Acct:[id number] Age/Sex: 86 / M Adm Date: 2 Loc: Room: [address] [place] [address] Type: ADM IN Attending Dr: Ronit Caruso [...] was brought to the emergency department at [facility]. He was found by first EKG [...] 06:48 01/01/22 06:48 Lab results: Cardiac Enzymes 0812/31/21 01/01/22 Range/Units 22:45 22:45 06:48 AST 18 [...] (Auto) 0.6 L 0.6 L (1.00-4.8) x10E3/uL Isabela # (Auto) 0.9 H 1.5 H (0.0-0.8) [...] for Lexiscan nuclear myocardial perfusion imaging Monday morning Code(s): R07.9 - Chest pain, unspecified Plan Thank you very much for this kind consultation and for allowing me to participate in care of this very pleasant patient and his family. Documented By: Anderson Ambrosio MD 01/01/22 1556 Signed By: <Electronically signed by Anderson Ambrosio MD> 01/01/22 1603 [facility] Work Phone: Discharge summary Author Mohsen Muniz [facility] January 06, 2022 12:58pm Note Date/Time January 06, 2022 12:58pm [facility] [address] [place] [address] Discharge Summary Signed Patient: Esa Leavitt MR#: [id number] : 1935 Acct:[id number] Age/Sex: 86 / M Adm Date: 2 Loc: Room: [address] [place] [address]: Mohsen Muniz MD Copies to: [...] no history of A. fib. Given elevated ORV4RF3-KKRi, he was started on Eliquis. He was [...] noted Discharge Plan Discharge Plan Patient Disposition: Retirement Facility Activity: No Activity Restriction Diet: Low-Sodium [...] 1 tab PO DAILY Follow Up: Demetra Downey MD [Active Staff] - 03/02/22 11:30 am Documented By: Mohsen Muniz MD 2 1250 Signed By: <Electronically signed by Mohsen Muniz MD> 01/06/22 1258 [facility] Work Phone: Evaluation note* Diagnosis Onset Date Resolution Status Atrial fibrillation with rapid ventricular response acute Chest pain acute Essential hypertension acute [facility] Work Phone: Hospital Discharge instructions Additional Instructions SNF TO MANAGE: PT/OT to eval and treat Monitor VS per protocol--Hx of HTN Monitor FSBS per protocol Maintain high risk fall precautions Care [facility] Work Phone: [facility] Work Phone: Progress note Author Ronit Caruso [facility] January 01, 2022 2:37pm Note Date/Time January 01, 2022 2: 37pm [facility] [address] [place] [address] Hospitalist Progress Note Signed Patient: Esa Leavitt MR#: [id number] : 1935 Acct:[id number] Age/Sex: 86 / M Adm Date: 2 Loc: Room: [address] [place] [address] Type: ADM IN Attending Dr: Ronit Caruso [...] Name Hadleyq PRN Reason Stop Dose Admin Apixaban 5 [...] signed by Ronit Caruso MD> 01/01/22 1437 [facility] Work Phone: Progress note Author Demetra Downey [facility] January 02, 2022 1:39pm Note Date/Time January 02, 2022 1: 35pm [facility] [address] [place] [address] Cardiology Progress Note Signed Patient: Esa Leavitt MR#: [id number] : 1935 Acct:[id number] Age/Sex: 86 / M Adm Date: 2 Loc: Room: [address] [place] [address] Type: ADM IN Attending Dr: Ronit Caruso [...] MPV Neut % (Auto) Lymph % (Auto) [place] % (Auto) Eos % (Auto) Baso % (Auto) Neut # (Auto) Lymph # (Auto) [place] # (Auto) Eos # (Auto) Baso # (Auto) Nucleated RBC % (auto) PHA Creatinine Clear Sodium Potassium Chloride Carbon Dioxide BUN Creatinine Est GFR ( Amer) Est GFR (Non-Af Amer) Glucose POC Glucose 130 159 POC Glucose Comment Calcium Urine Color [place] A Urine Appearance Clear Urine pH 5.5 Ur Specific [place] 1.020 Urine Protein Negative Urine Glucose (UA) [...] % (Auto) 79.0 Lymph % (Auto) 9.0 Isabel[place] % (Auto) 11.1 Eos % (Auto) 0.3 Baso % (Auto) 0.6 Neut # (Auto) 7.4 Lymph # (Auto) 0.8 L [place] # (Auto) 1.0 H Eos # (Auto) [...] Color Urine Appearance Urine pH Ur Specific [place] Urine Protein Urine Glucose (UA) Urine Ketones Urine Occult Blood Urine Nitrite Urine Bilirubin Urine Urobilinogen Ur Leukocyte Esterase Urine RBC Urine WBC Ur Squamous Epith Cells Urine Bacteria Hyaline Casts 01/02/22 11:42 Corrected WBC Uncorrected WBC Count RBC Hgb Hct MCV MCH MCHC RDW Plt Count MPV Neut % (Auto) Lymph % (Auto) [place] % (Auto) Eos % (Auto) Baso % (Auto) Neut # (Auto) Lymph # (Auto) [place] # (Auto) Eos # (Auto) Baso # (Auto) Nucleated RBC % (auto) PHA Creatinine Clear Sodium Potassium Chloride Carbon Dioxide BUN Creatinine Est GFR ( Amer) Est GFR (Non-Af Amer) Glucose POC Glucose 144 POC Glucose Comment Glu2: cleaned meter Calcium Urine Color Urine Appearance Urine pH Ur Specific [place] Urine Protein Urine Glucose (UA) Urine Ketones [...] Cardiolite stress test tomorrow Documented By: Demetra Downey MD, [facility] 2 1332 Signed By: <Electronically signed by [facility] Demetra Downey> 01/02/22 1339 [facility] Work Phone: Progress note Author Ronit Caruso [facility] January 02, 2022 6:16pm Note Date/Time January 02, 2022 6: 16pm [facility] [address] [place] [address] Hospitalist Progress Note Signed Patient: Esa Leavitt MR#: [id number] : 1935 Acct:[id number] Age/Sex: 86 / M Adm Date: 2 Loc: Room: [address] [place] [address] Type: ADM IN Attending Dr: Ronit Caruso [...] Air 2 01/02/22 16:00 01/02/22 16:00 01/02/22 16:01/02/22 16:00 01/02/22 16:00 01/02/22 16:42 01/01/22 08:46 [...] Name Hadleyq PRN Reason Stop Dose Admin Apixaban 5 [...] Insuln.Pen SUBCUT 01/01/23 16:59 Not Given TID.WM.HS [facility] Protocol Labetalol HCl 5 mg 01/01/22 00:08 [...] Start patient on Eliquis given his elevated XBC8JB4-RAFc score ? Echo is pending ? Check [...] <Electronically signed by Ronit Caruso MD> 01/02/221815 [facility] Work Phone: Progress note Author Demetra Downey [facility] January 03, 2022 12:51pm Note Date/Time January 03, 2022 12 :46pm [facility] [address] [place] [address] Cardiology Progress Note Signed Patient: Esa Leavitt MR#: [id number] : 1935 Acct:[id number] Age/Sex: 86 / M Adm Date: 2 Loc: Room: [address] [place] [address] Type: ADM IN Attending Dr: Mohsen Muniz [...] pain, unspecified Status: Acute Documented By: Demetra Downey MD, [facility] 2 1245 Signed By: <Electronically signed by [facility] Demetra Downey> 01/03/22 1251 [facility] Work Phone: Progress note Author Mohsen Muniz [facility] January 03, 2022 7:41pm Note Date/Time January 03, 2022 7: 16pm [facility] [address] [place] [address] Hospitalist Progress Note Signed Patient: Esa Leavitt MR#: [id number] : 1935 Acct:[id number] Age/Sex: 86 / M Adm Date: 2 Loc: Room: [address] [place] [address] Type: ADM IN Attending Dr: Mohsen Muniz [...] Insuln.Pen SUBCUT 01/01/23 16:59 Not Given TID.WM.HS [facility] Protocol Ketorolac Tromethamine 30 mg 01/03/22 17:44 [...] Cont patient on Eliquis given his elevated QBB3QD3-TIGc score Generalized deconditioning PT/OT assessment recommends SNF [...] <Electronically signed by Mohsen Muniz MD> 01/03/221940 [facility] Work Phone: Progress note Author Mohsen Muniz [facility] January 04, 2022 11:51am Note Date/Time January 04, 2022 11 :51am [facility] [address] [place] [address] Hospitalist Progress Note Signed Patient: Esa Leavitt MR#: [id number] : 1935 Acct:[id number] Age/Sex: 86 / M Adm Date: 2 Loc: 3T Room: [address] [place] [address] Type: ADM IN Attending Dr: Mohsen Muniz [...] Insuln.Pen SUBCUT 01/01/23 16:59 Not Given TID.WM.HS [facility] Protocol Ketorolac Tromethamine 30 mg 01/03/22 17:44 [...] Cont patient on Eliquis given his elevated [id number] score Generalized deconditioning PT/OT assessment recommends SNF [...] signed by Mohsen Muniz MD> 01/04/22 1151 [facility] Work Phone: Progress note Author Demetra Downey [facility] January 04, 2022 4:33pm Note Date/Time January 04, 2022 4: 29pm [facility] [address] [place] [address] Cardiology Progress Note Signed Patient: Esa Leavitt MR#: [id number] : 1935 Acct:[id number] Age/Sex: 86 / M Adm Date: 2 Loc: Room: [address] [place] [address] Type: ADM IN Attending Dr: Mohsen Muniz [...] % (Auto) 76.0 Lymph % (Auto) 8.6 Isabela % (Auto) 12.6 Eos % (Auto) 2.3 Baso % (Auto) 0.5 Neut # (Auto) 4.6 Lymph # (Auto) 0.5 L Isabela # (Auto) 0.8 Eos # (Auto) 0.1 [...] MPV Neut % (Auto) Lymph % (Auto) Isabela % (Auto) Eos % (Auto) Baso % (Auto) Neut # (Auto) Lymph # (Auto) Isabela # (Auto) Eos # (Auto) Baso # [...] MPV Neut % (Auto) Lymph % (Auto) Isabela % (Auto) Eos % (Auto) Baso % (Auto) Neut # (Auto) Lymph # (Auto) Isabela # (Auto) Eos # (Auto) Baso # [...] Plan: Continue present medications Documented By: Demetra Downey MDAIDA 2 1628 Signed By: <Electronically signed by MD AIDA Downey> 01/04/22 1633 [facility] Work Phone: Progress note Author Mohsen Muniz [facility] January 05, 2022 12:53pm Note Date/Time January 05, 2022 12 :53pm [facility] [address] [place] [address] Hospitalist Progress Note Signed Patient: Esa Leavitt MR#: [id number] : 1935 Acct:[id number] Age/Sex: 86 / M Adm Date: 2 Loc: Room: [address] [place] [address] Type: ADM IN Attending Dr: Mohsen Muniz [...] Insuln.Pen SUBCUT 01/01/23 16:59 Not Given TID.WM.HS [facility] Protocol Ketorolac Tromethamine 30 mg 01/03/22 17:44 [...] 20 Mg Capsule.Dr PO 01/06/23 08:59 DAILY [facility] Ondansetron HCl 4 mg 01/01/22 00:08 Ondansetron [...] Cont patient on Eliquis given his elevated [id number] score Generalized deconditioning PT/OT assessment recommends SNF [...] signed by Mohsen Muniz MD> 01/05/22 1253 [facility] Work Phone: Summary Purpose Family History No [...] and content) DATE CREATED AUTHOR 11/04/2020 [facility] DATE CREATED AUTHOR AUTHOR'S ORGANIZ ATION 10/08/2021 [facility] DATE CREATED AUTHOR AUTHOR'S ORGANIZ ATION 02/12/2022 [facility] DATE CREATED AUTHOR AUTHOR'S ORGANIZ ATION 06/16/2022 [facility] DATE CREATED AUTHOR AUTHOR'S ORGANIZ ATION 09/03/2022 [facility] DATE CREATED AUTHOR AUTHOR'S ORGANIZ ATION 03/31/2023 [facility] Specialists [facility] DATE CREATED AUTHOR AUTHOR'S ORGANIZ ATION 07/23/2023 [facility] Care Teams (unrecognized sec tion and content) Team Status: Inactive Member Role Status Dates Beto Beckwith II MD Primary Care Provider Active Bouchra Hugo MD Emergency Provider Active Anabella Stone MD Admit Provider Active Tyra Andrade RN Other Provider Active Alan Doyle DO Other Provider Active Demetra Downey MD Other Provider Active Filipe Floyd MD [...] BE BASED ON THE PRIMARY CLINICAL RECORDS. [employer] [facility]. provides no warranty or guarantee of the accuracy or completeness of information in this document.
== END 2023-07-24 10:29 | disposition home or self-care (01) ==
LOC: EC 10:29
PROVIDERS: Family Provider Internal Medicine; PCP Internal Medicine; Visit Provider Orthopaedic Surgery
DX: S82.62XD Displaced fracture of lateral malleolus of left fibula, subsequent encounter for closed fracture with routine healing (principal)
CPT/HCPCS: 73590

== ENCOUNTER 2023-08-17 13:02 | Outpatient (OUT) | payer MEDICARE, SELFPAY ==
--- NOTE | 2023-08-17 13:09 | FL_ITS ---
The [address] [address] Patient Name: ARTEMIO LEAVITT MRN: [id number] date: 1935 Sex: M Assigned Patient Location: OR Current Patient Location: OR Accession/Order Number: [id number] Exam Date: 08/17/2023 13:25 Report Date: 08/17/2023 14:51 At the request of: HIEN CAMPBELL Procedure: FL modified barium swallow EXAMINATION: FL modified barium swallow HISTORY: dysphagia COMPARISON: No relevant comparison available. TECHNIQUE: A swallowing evaluation was performed with fluoroscopy in the usual manner. Standard level fluoroscopic mode of operation utilized. FINDINGS: ORAL PHASE: Slight lung coordination and chewing and slight delay and difficulty in initiating swallowing. PHARYNGEAL PHASE: Some early spillage of thin contrast over base of tongue prior to initiation of swallowing. No apparent issues with nectar thickened liquid, pudding, and peaches. ASPIRATION: Single episode occurred during swallowing of thin barium when patient took a large mouthful by cup. STRUCTURE: Normal. No visible obstruction, stricture, or dilatation. OTHER: Negative. FL/OR modified barium swallow IMPRESSION: 1. Slight difficulty/delay in initiation of swallowing which makes swallowing thin liquid slightly less controlled. Otherwise patient manages adequately. 2. Please see speech pathologist's report for further discussion. Electronically authenticated by: BREEZY JENSEN Date: 08/17/2023 14:51
== END 2023-08-17 13:03 | disposition home or self-care (01) ==
LOC: FL 13:03
PROVIDERS: Family Provider Internal Medicine; PCP Internal Medicine; Visit Provider Family Medicine
DX: R13.10 Dysphagia, unspecified (principal)
CPT/HCPCS: 74230; 92611

== ENCOUNTER 2023-11-02 03:38 | Emergency (ER) | payer MEDICARE, SELFPAY ==
[2023-11-02 03:39] VITALS: BP 156/73; PULSE 60; TEMP 36.4; O2SAT 99
--- NOTE | 2023-11-02 03:45 | ED_ITS ---
HPI - Male Genitourinary General Chief complaint: Urogenital-Male Stated complaint: other Time Seen by Provider: 11/02/23 03:40 Source: patient Mode of arrival: ambulance History of Present Illness HPI Narrative: This 88-year-old male is brought to the emergency department by EMS from the [facility] where he resides for evaluation of urinary retention. Patient has not been able to urinate since going to bed many hours ago. He has pain and fullness in his bladder area. The patient states he had urinary retention in the past several months after undergoing a surgical procedure at [facility] in [place]. The patient states that something in his abdomen was leaking into his lungs. It is unclear what he is talking about but he does not have any surgical scars on his abdomen. His lungs are clear. He denies any fever. He denies any flank pain or vomiting. His only complaint of pain is over his urinary bladder. He does have chronic lower extremity edema and a history of atrial fibrillation. He is on El iquis. Related Data Home Medications ?Medication ?Instructions ?Recorded ?Confirmed apixaban 5 mg tablet (Eliquis) 5 mg PO QDAY 05/10/23 11/02/23 atorvastatin 40 mg tablet 40 mg PO .qhs 05/10/23 11/02/23 diltiazem HCl 180 mg 180 mg PO Q24H 05/10/23 11/02/23 capsule,extended release 24 hr ferrous sulfate 325 mg (65 mg 325 mg PO DAILY 05/10/23 11/02/23 iron) tablet metoprolol succinate 50 mg 50 mg PO QDAY 05/10/23 11/02/23 tablet,extended release 24 hr omeprazole 20 mg capsule,delayed 20 mg PO DAILY 11/02/23 11/02/23 release tramadol 50 mg tablet 50 mg PO Q12H PRN pain 11/02/23 11/02/23 Allergies Allergy/AdvReac Type Severity Reaction Status Date / Time No Known Drug Allergies Allergy Verified 11/02/23 03:39 [facility] Medical History (Updated 11/02/23 @ 04:56 by Melanie Hwang MD) Paroxysmal atrial fibrillation ?I48.0 - Paroxysmal atrial fibrillation (ICD-10) Type 2 diabetes mellitus with hyperglycemia ?E11.65 - Type 2 diabetes mellitus with hyperglycemia (ICD-10) HTN (hypertension) ?I10 - Essential (primary) hypertension (ICD-10) Ankle sprain and strain ?S93.409A - Sprain of unspecified ligament of unspecified ankle, initial encounter (ICD-10) ?S96.919A - Strain of unspecified muscle and tendon at ankle and foot level, unspecified foot, initial encounter (ICD-10) High cholesterol ?E78.00 - Pure hypercholesterolemia, unspecified (ICD-10) Atrial fibrillation ?I48.91 - Unspecified atrial fibrillation (ICD-10) Diabetes 1.5, managed as type 2 ?E13.9 - Other specified diabetes mellitus without complications (ICD-10) Surgical History (Updated 05/10/23 @ 20:31 by Rukhsana Perez) Hernia ?K46.9 - Unspecified abdominal hernia without obstruction or gangrene (ICD- 10) History of tonsillectomy ?Z90.89 - Acquired absence of other organs (ICD-10) Back pain with history of spinal surgery ?M54.9 - Dorsalgia, unspecified (ICD-10) ?Z98.890 - Other specified postprocedural states (ICD-10) Social History Within the past year, how often did you have a drink containing alcohol: 4 or more times a week Within the past year, how many standard drinks containing alcohol did you have on a typical day: 1 or 2 Total score: 0 Score interpretation: A score less than 4 is consistent with normal alcohol consumption. Smoking status: Never smoker Non-prescribed substance use: denies use Previous occupational history: retired Highest level of school completed/degree received: Bachelor's degree Are you now , , , , never or living with a partner: In a typical week, how many times do you talk on the telephone with family, friends, or neighbors: 3 or more times per week How often do you get together with friends or relatives: 3 or more times per week How often do you attend shinto or scientologist services: never Do you belong to any clubs or organizations such as shinto groups unions, fraternal or athletic groups, or school groups: no Total score: 2 Score interpretation: A score of greater than or equal to 2 indicates the lowest level of social isolation. Little interest or pleasure in doing things: not at all Feeling down, depressed, or hopeless: not at all Feel stressed/tense/nervous/anxious/difficulty sleeping: not at all Do you think of yourself as: straight/heterosexual Gender Identity: male Exam Narrative Exam Narrative: Vital signs and Nursing Notes reviewed: Patient is afebrile with a normal pulse, blood pressure is elevated at 156/73, he is not hypoxic with pulse ox of 99% on room air General: Awake, alert, oriented, non-toxic elderly male, no respiratory distress HEENT: Normocephalic atraumatic, mucous membranes are moist and pink, eyes are clear, normal conjunctiva, vision is grossly intact, there is clouding of the right cornea. Patient is partially edentulous Chest: Lungs are clear to auscultation with good air entry, there is no wheezing rhonchi or rales appreciated no accessory muscle use, patient is speaking in complete sentences-no chest wall tenderness to palpation CVS: Irregular rate and rhythm consistent with atrial fibrillation, pulses are brisk and equal bilaterally ABD: Distended at the urinary bladder, otherwise nontender, 1300 cc of urine noted on the bladder scan Extremities: Moving all extremities, 2-3+ pitting edema of bilateral lower extremities with mild lower extremity redness, feet are warm and sensate Skin: Normal in appearance without rash,pallor, petechiae or purpura Neuro: No focal deficits Constitutional Vital Signs, click to edit/add: Last Vital Signs Temp 97.5 F L 11/02/23 03:39 Pulse 60 11/02/23 03:39 Resp 15 11/02/23 03:39 BP 156/73 H 11/02/23 03:39 Pulse Ox 99 11/02/23 03:39 O2 Del Method Room Air 11/02/23 03:39 Course Vital Signs Vital signs: Vital Signs Temperature 97.5 F L 11/02/23 03:39 Pulse Rate 60 11/02/23 03:39 Respiratory Rate 15 11/02/23 03:39 Blood Pressure 156/73 H 11/02/23 03:39 Pulse Oximetry 99 11/02/23 03:39 Oxygen Delivery Method Room Air 11/02/23 03:39 Temperature 97.5 F L 11/02/23 03:39 Pulse Rate 60 11/02/23 03:39 Respiratory Rate 15 11/02/23 03:39 Blood Pressure 156/73 H 11/02/23 03:39 Pulse Oximetry 99 11/02/23 03:39 Oxygen Delivery Method Room Air 11/02/23 03:39 MDM - Male Genitourinary MDM Narrative Medical decision making narrative: This 88-year-old male presents for acute urinary retention. He had a Branch catheter while he was an inpatient at [facility] when he under went a surgical procedure in the past several months. He states he has not been able to sleep all night because he has not been able to urinate except very small amounts. He denied any nausea or vomiting. He denied any flank pain. He was tender over his urinary bladder with 1300 cc of urine in the bladder. A Branch catheter was placed by the nursing staff with almost 1400 mL of urine removed from the bladder. Patient had relief of his discomfort at that time and is tolerating clear liquids. He has not required any pain medicine or nausea medicine. Urine was sent to the lab for analysis and does not show any acute infection. A culture was indicated. Antibiotics will not be initiated at this time. Patient will be returned to the [facility] care facility where he currently resides for further evaluation and treatment with the Branch catheter in place. He verbalizes understanding of the need for this to prevent recurrence of the urinary retention. He will be referred to outpatient urology. While waiting to be discharged he complained of pain in his urethra and was medicated with Tylenol and Levsin. He will be discharged home with a prescription for pyridium to use as needed for bladder spasm. Lab Data Labs: Lab Results 11/02/23 Range/Units 03:50 Urine Color Yellow (YELLOW) Urine Clarity Clear (CLEAR) Urine pH 6.0 (5.0-9.0) Ur Specific [place] 1.025 (1.005-1.025) Urine Protein Negative (NEG/TRACE) mg/dL Urine Glucose (UA) Negative (NEGATIVE) mg/dL Urine Ketones Negative (NEGATIVE) mg/dL Urine Occult Blood Small A (NEGATIVE) Urine Nitrite Negative (NEGATIVE) Urine Bilirubin Negative (NEGATIVE) Urine Urobilinogen 0.2 (0.2-1.0) EU/dL Ur Leukocyte Esterase Negative (NEGATIVE) Urine RBC 2-5 A (0-2) #/HPF Urine WBC 2-5 A (NONE SEEN) #/HPF Ur Squamous Epith Cells Rare (NONE/RARE) #/LPF Urine Crystals None seen (None Seen) #/HPF Urine Bacteria Small A (NONE SEEN) #/HPF Urine Casts None seen (NONE SEEN) #/LPF Urine Mucus None seen (NONE SEEN) Ur Culture Indicated? Yes Discharge Plan Discharge Stand Alone Forms: Portal Instructions Chief Complaint: Urogenital-Male Clinical Impression: Acute urinary retention Patient Disposition: Home, Self-Care Time of Disposition Decision: 06:04 Condition: Good Prescriptions / Home Meds: No Action Eliquis 5 mg tablet 5 mg PO QDAY atorvastatin 40 mg tablet 40 mg PO .qhs diltiazem HCl 180 mg capsule,extended release 24hr 180 mg PO Q24H ferrous sulfate 325 mg (65 mg iron) tablet 325 mg PO DAILY metoprolol succinate 50 mg tablet extended release 24 hr 50 mg PO QDAY omeprazole 20 mg capsule,delayed release(DR/EC) 20 mg PO DAILY tramadol 50 mg tablet 50 mg PO Q12H PRN (Reason: pain) Print Language: [place] Citizen Instructions: Urinary Retention in Men (ED), Branch Catheter Placement and Care (ED) Referrals: HIEN TEIXEIRA [Primary Care Provider] - 1 week Toi Coello MD [Physician] - As soon as possible (acute urinary retention)
[2023-11-02 04:01] LABS: Bilirubin Urine NEGATIVE (NEGATIVE); Blood Urine SMALL (NEGATIVE); Clarity Urine CLEAR (CLEAR); Color Urine YELLOW (YELLOW); Glucose Urine UA NEGATIVE (NEGATIVE); Ketones Urine NEGATIVE (NEGATIVE); Leukocyte Esterase Urine NEGATIVE (NEGATIVE); Nitrite Urine NEGATIVE (NEGATIVE); Protein Urine NEGATIVE (NEG/TRACE); Specific Gravity Urine 1.025 (1.005-1.025); Urobilinogen Urine 0.2 EU/dL (0.2-1.0)
--- OUTSIDE RECORDS SUMMARY | 2023-11-02 04:03 | XMS_ITS | CCD ---
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 Minh Kim Unavailable Unavailable MD Minh Kim Attending Provider [phone] Minh Kim Attending Unavailable Minh Kim Admitting Unavailable Minh Kim Attending Unavailable Beto Beckwith Primary Care Unavailable Minh Kim Admitting Unavailable Minh Kim Attending Unavailable Beto Beckwith Primary Care Unavailable Keon Stone, Anabella Admitting Unavailab Mohsen Larkin Attending Unavailab Beto [...] Downey Attending Unavailable Demetra Downey Attending Unavailable WILL PECK Referring Unavailable NICOLE LEBLANC Consulting Unavail able BETO BECKWITH Primary Care Unavailable KATHRINE GONZALEZ Attending Unavailable KATHRINE GONZALEZ Admitting Unavailable LUZ JUAN Consulting Unavailable ANAT ULRICH Consulting Unavailable DEVAN CASTELLANOS Consulting Unavailable RACHAEL JONES Consulting Unavailable JOYCE NGUYEN Consulting Unavailable ERNESTO GARCIA Consulting UnavailBRANDY Silva Consulting Unavailable BETO BECKWITH Attending Unavailable BETO BECKWITH Attending Unavailable LORENA PELAYO Attending Unavailable BETO BECKWITH Referring Unavailable Medications Current Medications Medication Drug Class(es) [...] 05, 2021 1:00am January 06, 2022 12:50pm Jerome Oil / Anguillan balsam (1 source) Standardized Chemical Allergen Start: [...] 2023 Glucose [Mass/Vol] 189 mg/dL High 75-110 [facility] Glucose [Mass/Vol] 115 mg/dL High 75-110 [facility] Calcium, Ionicon 07-04-2023 Calcium [Moles/Vol] 1.03 mmol/L Low 1.13-1.33 [facility] Comment on above: Performed By: #### I OCAL ####[facility] [place], [place] [id number] Lab Director: Giovani Stafford MD Glucose,Whole Bloodon 2023 Glucose [Mass/Vol] 192 mg/dL High 75-110 [facility] Glucose [Mass/Vol] 195 mg/dL High 75-110 [facility] Glucose [Mass/Vol] 162 mg/dL High 75-110 [facility] Glucose [Mass/Vol] 113 mg/dL High 75-110 [facility] Basic Metab w/rfx MGon 07-03 Anion gap [Moles/Vol] 7 mmol/L Low 9-17 [facility] Comment on above: Performed By: #### C DP, BMPX, MG, SUYAPA #### [facility] [address] [place] [address] Teacher Ballet: Giovani Stafford MD Calcium [Mass/Vol] 7.6 mg/dL Low 8.6-10.4 [facility] Comment on above: Performed By: #### C DP, BMPX, MG, SUYAPA #### [facility] [address] [place], [place] [phone] Teacher Ballet: Giovani Stafford MD Chloride [Moles/Vol] 95 mmol/L Low 98-107 [facility] Comment on above: Performed By: #### C DP, BMPX, MG, SUYAPA #### [facility] [address] [place] [address] Teacher Ballet: Giovani Stafford MD CO2 [Moles/Vol] 28 mmol/L Normal 20-31 [facility] Comment on above: Performed By: #### C DP, BMPX, MG, SUYAPA #### [facility] [address] [place] [address] Teacher Ballet: Giovani Stafford MD Creatinine [Mass/Vol] 0.3 mg/dL Low 0.7-1.2 [facility] Comment on above: Performed By: #### C DP, BMPX, MG, SUYAPA #### [facility] [address] [place] [address] Teacher Ballet: Giovani Stafford MD GFR/1.73 sq M.predicted among non-blacks MDRD (S/P/Bld) [Vol rate/Area] mL/min/{1.73_m2} Normal >60 [facility] Comment on above: Result Comment: These results [...] #### C DP, BMPX, MG, SUYAPA #### [facility] [address] [place] [address] Teacher Ballet: Giovani Stafford MD Glucose [Mass/Vol] 111 mg/dL High 70-99 [facility] Comment on above: Performed By: #### C DP, BMPX, MG, SUYAPA #### [facility] [address] [place] [address] Teacher Ballet: Giovani Stafford MD Potassium [Moles/Vol] 3.7 mmol/L Normal 3.7-5.3 [facility] Comment on above: Performed By: #### C DP, BMPX, MG, SUYAPA #### [place] [address] Teacher Ballet: Giovani Stafford MD Sodium [Moles/Vol] 130 mmol/L Low 135-144 [facility] Comment on above: Performed By: #### C DP, BMPX, MG, SUYAPA #### [facility] [employer] [address] [place] [address] Teacher Ballet: Giovani Stafford MD Urea nitrogen [Mass/Vol] 5 mg/dL Low 8-23 [facility] Comment on above: Performed By: #### C DP, BMPX, MG, SUYAPA #### [place] [address] Teacher Ballet: Giovani Stafford MD CBC with Diffon 07-03-2023 Abs. Basophil 0.04 k/uL Normal 0.00-0.20 [facility] Comment on above: Performed By: #### C DP, BMPX, MG, SUYAPA #### [facility] [employer] [address] [place] [address] Teacher Ballet: Giovani Stafford MD Abs.Imm.Granulocyte 0.41 k/uL High 0.00-0.30 [facility] Comment on above: Performed By: #### C DP, BMPX, MG, SUYAPA #### [facility] [employer] [address] [place] [address] Teacher Ballet: Giovani Stafford MD Abs.Neutrophil (Seg) 8.03 k/uL Normal 1.50-8.10 [facility] Comment on above: Performed By: #### C DP, BMPX, MG, SUYAPA #### [facility] [employer] [address] [place] [address] Teacher Ballet: Giovani Stafford MD Basophils/100 WBC (Bld) 0 % Normal 0-2 [facility] Comment on above: Performed By: #### C DP, BMPX, MG, SUYAPA #### [facility] [employer] [address] [place] [address] Teacher Ballet: Giovani Stafford MD Eosinophils (Bld) [#/Vol] 0.51 10*3/uL High 0.00-0.44 [facility] Comment on above: Performed By: #### C DP, BMPX, MG, SUYAPA #### [facility] [employer] [address] [place] [address] Teacher Ballet: Giovani Stafford MD Eosinophils/100 WBC (Bld) 5 % High 1-4 [facility] Comment on above: Performed By: #### C DP, BMPX, MG, SUYAPA #### [place] [address] Teacher Ballet: Giovani Stafford MD Erythrocyte distribution width (RBC) [Ratio] 13.1 % Normal 11.8-14.4 [facility] Comment on above: Performed By: #### C DP, BMPX, MG, SUYAPA #### [facility] [employer] [address] [place] [address] Teacher Ballet: Gioavni Stafford MD Hematocrit (Bld) [Volume fraction] 30.1 % Low 40.7-50.3 [facility] Comment on above: Performed By: #### C DP, BMPX, MG, SUYAPA #### [facility] [employer] [address] [place] [address] Teacher Ballet: Giovani Stafford MD Hemoglobin (Bld) [Mass/Vol] 9.8 g/dL Low 13.0-17.0 [facility] Comment on above: Performed By: #### C DP, BMPX, MG, SUYAPA #### [facility] [employer] [address] [place] [address] Teacher Ballet: Giovani Stafford MD Immature granulocytes/100 WBC (Bld) 4 % High 0 [facility] Comment on above: Performed By: #### C DP, BMPX, MG, SUYAPA #### [address] [address] Teacher Ballet: Giovani Stafford MD Lymphocytes (Bld) [#/Vol] 0.79 10*3/uL Low 1.10-3.70 [facility] Comment on above: Performed By: #### C DP, BMPX, MG, SUYAPA #### [address] [address] Teacher Ballet: Giovani Stafford MD Lymphocytes/100 WBC (Bld) 7 % Low 24-43 [facility] Comment on above: Performed By: #### C DP, BMPX, MG, SUYAPA #### [address] [address] Teacher Ballet: Giovani Stafford MD MCH (RBC) [Entitic mass] 31.4 pg Normal 25.2-33.5 [facility] Comment on above: Performed By: #### C DP, BMPX, MG, SUYAPA #### [address] [address] Teacher Ballet: Giovani Stafford MD MCHC (RBC) [Mass/Vol] 32.6 g/dL Normal 28.4-34.8 [facility] Comment on above: Performed By: #### C DP, BMPX, MG, SUYAPA #### [address] [address] Teacher Ballet: Giovani Stafford MD MCV (RBC) [Entitic vol] 96.5 fL Normal 82.6-102.9 [facility] Comment on above: Performed By: #### C DP, BMPX, MG, SUYAPA #### [address] [address] Teacher Ballet: Giovani Stafford MD Monocytes (Bld) [#/Vol] 1.08 10*3/uL Normal 0.10-1.20 [facility] Comment on above: Performed By: #### C DP, BMPX, MG, SUYAPA #### [address] [address] Teacher Ballet: Giovani Stafford MD Monocytes/100 WBC (Bld) 10 % Normal 3-12 [facility] Comment on above: Performed By: #### C DP, BMPX, MG, SUYAPA #### [address] [address] Teacher Ballet: Giovani Stafford MD Neutrophil (Seg) 74 % High 36-65 [facility] Comment on above: Performed By: #### C DP, BMPX, MG, SUYAPA #### [address] [address] Teacher Ballet: Giovani Stafford MD NRBC Automated 0.0 per 100 WBC Normal 0.0 [facility] Comment on above: Performed By: #### C DP, BMPX, MG, SUYAPA #### [address] [address] Teacher Ballet: Giovani Stafford MD Platelet mean volume (Bld) [Entitic vol] 11.0 fL Normal 8.1-13.5 [facility] Comment on above: Performed By: #### C DP, BMPX, MG, SUYAPA #### [address] [address] Teacher Ballet: Giovani Stafford MD Platelets (Bld) [#/Vol] 303 10*3/uL Normal 138-453 [facility] Comment on above: Performed By: #### C DP, BMPX, MG, SUYAPA #### [address] [address] Teacher Ballet: Giovani Stafford MD RBC (Bld) [#/Vol] 3.12 10*6/uL Low 4.21-5.77 [facility] Comment on above: Performed By: #### C DP, BMPX, MG, SUAYPA #### [facility] [address] [place], [place] [phone] Teacher Ballet: Giovani Stafford MD WBC (Bld) [#/Vol] 10.9 10*3/uL Normal 3.5-11.3 [facility] Comment on above: Performed By: #### C DP, BMPX, MG, SUYAPA #### [facility] [address] [place] [address] Teacher Ballet: Giovani Stafford MD Glucose,Whole Bloodon 2023 Glucose [Mass/Vol] 186 mg/dL High -110 [facility] Glucose [Mass/Vol] 125 mg/dL High -110 [facility] Glucose [Mass/Vol] 203 mg/dL High 75-110 [facility] Glucose [Mass/Vol] 107 mg/dL Normal -110 [facility] Glucose,Whole Bloodon 2023 Glucose [Mass/Vol] 146 mg/dL High -110 [facility] Glucose [Mass/Vol] 214 mg/dL High -110 [facility] Glucose [Mass/Vol] 153 mg/dL High -110 [facility] Glucose [Mass/Vol] 122 mg/dL High 75-110 [facility] Basic Metab w/rfx MGon 07-01 Anion gap [Moles/Vol] 9 mmol/L Normal 9-17 [facility] Comment on above: Performed By: #### B MPX, CDP ####[facility] [address] [place], [place] [phone] Lab Director: Giovani Stafford MD Calcium [Mass/Vol] 7.5 mg/dL Low 8.6-10.4 [facility] Comment on above: Performed By: #### B MPX, CDP ####[facility] [address] [place] [address] Lab Director: Giovani Stafford MD Chloride [Moles/Vol] 95 mmol/L Low 98-107 [facility] Comment on above: Performed By: #### B MPX, CDP ####[facility] [address] [place], [place] [phone] Director: Giovani Stafford MD CO2 [Moles/Vol] 30 mmol/L Normal 20-31 [facility] Comment on above: Performed By: #### B MPX, CDP ####[facility] [address] [place] [address] [phone] Director: Giovani Stafford MD Creatinine [Mass/Vol] 0.3 mg/dL Low 0.7-1.2 [facility] Comment on above: Performed By: #### B MPX, CDP ####[facility] [address] [place] [address] Lab Director: Giovani Stafford MD GFR/1.73 sq M.predicted among non-blacks MDRD (S/P/Bld) [Vol rate/Area] mL/min/{1.73_m2} Normal >60 [facility] Comment on above: Result Comment: These results [...] affects renal tubular secretion. Performed By: #### B MPX, CDP ####[facility] [address] [place] [address] [phone] Director: Giovani Stafford MD Glucose [Mass/Vol] 138 mg/dL High 70-99 [facility] Comment on above: Performed By: #### B MPX, CDP ####[facility] [address] [place], [place] [phone] Director: Giovani Stafford MD Potassium [Moles/Vol] 4.1 mmol/L Normal 3.7-5.3 [facility] Comment on above: Performed By: #### B MPX, CDP ####[facility] [address] [place], [place] [phone] Director: Giovani Stafford MD Sodium [Moles/Vol] 134 mmol/L Low 135-144 [facility] Comment on above: Performed By: #### B MPX, CDP ####[facility] [address] [place], [place] [address])[phone] Director: Giovani Stafford MD Urea nitrogen [Mass/Vol] 5 mg/dL Low 8-23 [facility] Comment on above: Performed By: #### B MPX, CDP ####[facility] [address] [place], [place] [phone] Director: Giovani Stafford MD CBC with Diffon 07-01-2023 Abs. Basophil 0.04 k/uL Normal 0.00-0.20 [facility] Comment on above: Performed By: #### B MPX, CDP ####[facility] [address] [place], [place] [address])[phone] Director: Giovani Stafford MD Abs.Imm.Granulocyte 0.37 k/uL High 0.00-0.30 [facility] Comment on above: Performed By: #### B MPX, CDP ####[facility] [address] [place], [place] [phone] Director: Giovani Stafford MD Abs.Neutrophil (Seg) 9.97 k/uL High 1.50-8.10 [facility] Comment on above: Performed By: #### B MPX, CDP ####[facility] [address] [place], [place] [phone] Lab Director: Giovani Stafford MD Basophils/100 WBC (Bld) 0 % Normal 0-2 [facility] Comment on above: Performed By: #### B MPX, CDP ####[address] [phone] Director: Giovani Stafford MD Eosinophils (Bld) [#/Vol] 0.50 10*3/uL High 0.00-0.44 [facility] Comment on above: Performed By: #### B MPX, CDP ####[facility] [address] [place] [address] [phone] Director: Giovani Stafford MD Eosinophils/100 WBC (Bld) 4 % Normal 1-4 [facility] Comment on above: Performed By: #### B MPX, CDP ####[address] [address])[phone] Director: Giovani Stafford MD Erythrocyte distribution width (RBC) [Ratio] 12.8 % Normal 11.8-14.4 [facility] Comment on above: Performed By: #### B MPX, CDP ####[address] [phone] Director: Giovani Stafford MD Hematocrit (Bld) [Volume fraction] 29.0 % Low 40.7-50.3 [facility] Comment on above: Performed By: #### B MPX, CDP ####[facility] [address] [place] [address])[phone] Director: Giovani Stafford MD Hemoglobin (Bld) [Mass/Vol] 9.4 g/dL Low 13.0-17.0 [facility] Comment on above: Performed By: #### B MPX, CDP ####[facility] [address] [place] [address] Lab Director: Giovani Stafford MD Immature granulocytes/100 WBC (Bld) 3 % High 0 [facility] Comment on above: Performed By: #### B MPX, CDP ####[address] [phone] Director: Giovani Stafford MD Lymphocytes (Bld) [#/Vol] 0.82 10*3/uL Low 1.10-3.70 [facility] Comment on above: Performed By: #### B MPX, CDP ####[facility] [address] [place] [address] [phone] Director: Giovani Stafford MD Lymphocytes/100 WBC (Bld) 6 % Low 24-43 [facility] Comment on above: Performed By: #### B MPX, CDP ####[place], [place] [address])[phone] Director: Giovani Stafford MD MCH (RBC) [Entitic mass] 30.8 pg Normal 25.2-33.5 [facility] Comment on above: Performed By: #### B MPX, CDP ####[place], [place] [address])[phone] Director: Giovani Stafford MD MCHC (RBC) [Mass/Vol] 32.4 g/dL Normal 28.4-34.8 [facility] Comment on above: Performed By: #### B MPX, CDP ####[facility] [address] [place] [address])[phone] Director: Giovani Stafford MD MCV (RBC) [Entitic vol] 95.1 fL Normal 82.6-102.9 [facility] Comment on above: Performed By: #### B MPX, CDP ####[address] [phone] Director: Giovani Stafford MD Monocytes (Bld) [#/Vol] 1.16 10*3/uL Normal 0.10-1.20 [facility] Comment on above: Performed By: #### B MPX, CDP ####[facility] [address] [place] [address] [phone] Director: Giovani Stafford MD Monocytes/100 WBC (Bld) 9 % Normal 3-12 [facility] Comment on above: Performed By: #### B MPX, CDP ####[facility] [address] [place] [address] [phone] Director: Giovani Stafford MD Neutrophil (Seg) 78 % High 36-65 [facility] Comment on above: Performed By: #### B MPX, CDP ####[facility] [address] [place] [address] [phone] Director: Givoani Stafford MD NRBC Automated 0.0 per 100 WBC Normal 0.0 [facility] Comment on above: Performed By: #### B MPX, CDP ####[facility] [address] [place] [address] [phone] Director: Giovani Stafford MD Platelet mean volume (Bld) [Entitic vol] 10.6 fL Normal 8.1-13.5 [facility] Comment on above: Performed By: #### B MPX, CDP ####[address] [phone] Director: Giovani Stafford MD Platelets (Bld) [#/Vol] 289 10*3/uL Normal 138-453 [facility] Comment on above: Performed By: #### B MPX, CDP ####[facility] [address] [place] [address] [id number])[phone] Director: Giovani Stafford MD RBC (Bld) [#/Vol] 3.05 10*6/uL Low 4.21-5.77 [facility] Comment on above: Performed By: #### B MPX, CDP ####[facility] [address] [place] [address] Lab Director: iGovani Stafford MD WBC (Bld) [#/Vol] 12.9 10*3/uL High 3.5-11.3 [facility] Comment on above: Performed By: #### B MPX, CDP ####[facility] [address] [place] [address] Lab Director: Giovani Stafford MD Cult,Bloodon 07-01-2023 Cult,Blood Specimen Description .BLOOD Special Requests L FOREARM 6ML Culture NO GROWTH 5 DAYS Report Status FINAL 07/01/2023 Normal [facility] Comment on above: Performed By: #### C DP, BMPX, MG, SUYAPA #### [facility] [employer] [address] [place] [phone] Teacher Ballet: Giovani Stafford MD Cult,Blood Specimen Description .BLOOD Special Requests R FOREARM 2ML Culture NO GROWTH 5 DAYS Report Status FINAL 07/01/2023 Normal [facility] Comment on above: Performed By: #### B C ####[address] [address] Lab Director: Giovani Stafford MD Glucose,Whole Bloodon 2023 Glucose [Mass/Vol] 151 mg/dL High 75-110 [facility] Glucose [Mass/Vol] 182 mg/dL High 75-110 [facility] Glucose [Mass/Vol] 208 mg/dL High 75-110 [facility] Glucose [Mass/Vol] 126 mg/dL High 75-110 [facility] Basic Metab w/rfx MGon 06-30 Potassium [Moles/Vol] 2.9 mmol/L Critically low 3.7-5.3 [facility] Comment on above: Performed By: #### R EJEC, LYTE, B12FOL, MG #### [facility] [address] [place] [address] [phone] Teacher Ballet: Giovani Stafford MD Anion gap [Moles/Vol] 8 mmol/L Low 9-17 [facility] Comment on above: Performed By: #### R PINA BATEMANTE B12FOL, MG #### [facility] [employer] [address] [place] [address] Teacher Ballet: Giovani Stafford MD Calcium [Mass/Vol] 7.6 mg/dL Low 8.6-10.4 [facility] Comment on above: Performed By: #### R EJKYRA LYTE, B12FOL, MG #### [facility] [employer] [address] [place] [address] Teacher Ballet: Giovani Stafford MD Chloride [Moles/Vol] 95 mmol/L Low 98-107 [facility] Comment on above: Performed By: #### R PINA BATEMANTE B12FOL, MG #### [facility] [employer] [address] [place] [address] Teacher Ballet: Giovani Stafford MD CO2 [Moles/Vol] 31 mmol/L Normal 20-31 [facility] Comment on above: Performed By: #### R BHAVANA LYTE B12FOL, MG #### [facility] [employer] [address] [place] [address] Teacher Ballet: Giovani Stafford MD Creatinine [Mass/Vol] 0.3 mg/dL Low 0.7-1.2 [facility] Comment on above: Performed By: #### R EJKYRA LYTE, B12FOL, MG #### [facility] [employer] [address] [place] [address] Teacher Ballet: Giovani Stafford MD GFR/1.73 sq M.predicted among non-blacks MDRD (S/P/Bld) [Vol rate/Area] mL/min/{1.73_m2} Normal >60 [facility] Comment on above: Result Comment: These results [...] #### R ALVA BATEMAN B12FOL, MG #### [facility] [address] [place] [address] Teacher Ballet: Giovani Stafford MD Glucose [Mass/Vol] 125 mg/dL High 70-99 [facility] Comment on above: Performed By: #### R PINA BATEMANTE B12FOL, MG #### [facility] [address] [place] [address] Teacher Ballet: Giovani Stafford MD Sodium [Moles/Vol] 134 mmol/L Low 135-144 [facility] Comment on above: Performed By: #### R PINA BATEMANTE B12FOL, MG #### [facility] [address] [place] [address] Teacher Ballet: Giovani Stafford MD Urea nitrogen [Mass/Vol] 10 mg/dL Normal 8-23 [facility] Comment on above: Performed By: #### ALVA SANTANA B12FOL, MG #### [facility] [address] [place] [address] Teacher Ballet: Giovani Stafford MD CBC with Diffon 06-30-2023 Abs. Basophil 0.00 k/uL Normal 0.0-0.2 [facility] Comment on above: Performed By: #### R PINA BATEMANTE B12FOL, MG #### [facility] [address] [place] [address] Teacher Ballet: Giovani Stafford MD Abs.Imm.Granulocyte 0.00 k/uL Normal 0.00-0.30 [facility] Comment on above: Performed By: #### R ALVA BATEMAN, B12FOL, MG #### [address] [address] Teacher Ballet: Giovani Stafford MD Abs.Neutrophil (Seg) 11.57 k/uL High 1.8-7.7 [facility] Comment on above: Performed By: #### R EJEC, LYTE, B12FOL, MG #### [address] [address] Teacher Ballet: Giovani Stafford MD Basophils/100 WBC (Bld) 0 % Normal 0-2 [facility] Comment on above: Performed By: #### R EJEC, LYTE, B12FOL, MG #### [address] [address] Teacher Ballet: Giovani Stafford MD Eosinophils (Bld) [#/Vol] 0.00 10*3/uL Normal 0.0-0.4 [facility] Comment on above: Performed By: #### R EJEC, LYTE, B12FOL, MG #### [address] [address] Teacher Ballet: Giovani Stafford MD Eosinophils/100 WBC (Bld) 0 % Low 1-4 [facility] Comment on above: Performed By: #### R EJEC, LYTE, B12FOL, MG #### [address] [address] Teacher Ballet: Giovani Stafford MD Immature granulocytes/100 WBC (Bld) 0 % Normal 0 [facility] Comment on above: Performed By: #### R EJEC, LYTE, B12FOL, MG #### [address] [address] Teacher Ballet: Giovani Stafford MD Lymphocytes (Bld) [#/Vol] 0.52 10*3/uL Low 1.0-4.8 [facility] Comment on above: Performed By: #### R EJEC, LYTE, B12FOL, MG #### [address] [address] Teacher Ballet: Giovani Stafford MD Lymphocytes/100 WBC (Bld) 4 % Low 24-44 [facility] Comment on above: Performed By: #### R EJEC, LYTE, B12FOL, MG #### [address] [address] Teacher Ballet: Giovani Stafford MD Monocytes (Bld) [#/Vol] 0.91 10*3/uL High 0.1-0.8 [facility] Comment on above: Performed By: #### R EJEC, LYTE, B12FOL, MG #### [address] [address] Teacher Ballet: Giovani Stafford MD Monocytes/100 WBC (Bld) 7 % Normal 1-7 [facility] Comment on above: Performed By: #### R EJEC, LYTE, B12FOL, MG #### [address] [address] Teacher Ballet: Giovani Stafford MD Morphology Ambrose (Bld) [Interp] Normal Normal [facility] Comment on above: Performed By: #### R EJEC, LYTE, B12FOL, MG #### [address] [address] Teacher Ballet: Giovani Stafford MD Neutrophil (Seg) 89 % High 36-66 [facility] Comment on above: Performed By: #### R EJEC, LYTE, B12FOL, MG #### [address] [address] Teacher Ballet: Giovani Stafford MD Erythrocyte distribution width (RBC) [Ratio] 13.0 % Normal 11.8-14.4 [facility] Comment on above: Performed By: #### R EJEC, LYTE, B12FOL, MG #### [address] [address] Teacher Ballet: Giovani Stafford MD Hematocrit (Bld) [Volume fraction] 29.6 % Low 40.7-50.3 [facility] Comment on above: Performed By: #### R EJEC, LYTE, B12FOL, MG #### [address] [address] Teacher Ballet: Giovani Stafford MD Hemoglobin (Bld) [Mass/Vol] 9.6 g/dL Low 13.0-17.0 [facility] Comment on above: Performed By: #### R EJEC, LYTE, B12FOL, MG #### [address] [address] Teacher Ballet: Giovani Stafford MD MCH (RBC) [Entitic mass] 31.5 pg Normal 25.2-33.5 [facility] Comment on above: Performed By: #### R EJEC, LYTE, B12FOL, MG #### [address] [address] Teacher Ballet: Giovani Stafford MD MCHC (RBC) [Mass/Vol] 32.4 g/dL Normal 28.4-34.8 [facility] Comment on above: Performed By: #### R EJEC, LYTE, B12FOL, MG #### [address] [address] Teacher Ballet: Giovani Stafford MD MCV (RBC) [Entitic vol] 97.0 fL Normal 82.6-102.9 M [facility] Comment on above: Performed By: #### R EJEC, LYTE, B12FOL, MG #### [address] [address] Teacher Ballet: Giovani Stafford MD NRBC Automated 0.0 per 100 WBC Normal 0.0 [facility] Comment on above: Performed By: #### R EJEC, LYTE, B12FOL, MG #### [facility] [place] [address] Teacher Ballet: Giovani Stafford MD Platelet mean volume (Bld) [Entitic vol] 11.0 fL Normal 8.1-13.5 [facility] Comment on above: Performed By: #### R EJEC, LYTE, B12FOL, MG #### [facility] [address] [place] [address] Teacher Ballet: Giovani Stafford MD Platelets (Bld) [#/Vol] 265 10*3/uL Normal 138-453 [facility] Comment on above: Performed By: #### R EJEC, LYTE, B12FOL, MG #### [facility] [employer] [address] [place] [address] Teacher Ballet: Giovani Stafford MD RBC (Bld) [#/Vol] 3.05 10*6/uL Low 4.21-5.77 [facility] Comment on above: Performed By: #### R EJEC, LYTE, B12FOL, MG #### [address] [address] Teacher Ballet: Giovani Stafford MD WBC (Bld) [#/Vol] 13.0 10*3/uL High 3.5-11.3 [facility] Comment on above: Performed By: #### R EJEC, LYTE, B12FOL, MG #### [address] [address] Teacher Ballet: Giovani Stafford MD Glucose,Whole Bloodon 2023 Glucose [Mass/Vol] 163 mg/dL High 75-110 [facility] Glucose [Mass/Vol] 155 mg/dL High 75-110 [facility] Glucose [Mass/Vol] 189 mg/dL High 75-110 [facility] Glucose [Mass/Vol] 128 mg/dL High 75-110 [facility] Magnesiumon 06-30-2023 Magnesium [Mass/Vol] 1.5 mg/dL Low 1.6-2.6 [facility] Comment on above: Performed By: #### ALVA SANTANA B12FOL MG #### [employer] [address] [place], [place] [id number] Teacher Ballet: Giovani Stafford MD Procalcitoninon 06-30-2023 Procalcitonin 0.11 ng/mL High <0.09 [facility] Comment on above: Result Comment: Suspected Sepsis: [...] entered into the Change in Procalcitonin Calculator ([email or web address]) to determine the patient's Mortality Risk Prognosis In healthy neonates, plasma Procalcitonin (PCT) concentrations increase gradually after , reaching peak values at about 24 hours of age then decrease to normal values below 0.5 ng/mL by 48-72 hours of age. Performed By: #### ALVA SANTANA B12FOL MG #### [address] [place] [address] Teacher Ballet: Giovani Stafford MD Basic Metab w/rfx MGon 06-29 Potassium [Moles/Vol] 3.3 mmol/L Low 3.7-5.3 [facility] Comment on above: Performed By: #### Leonela Cote, CDP, BMPX ####[facility] [address] [place], [place] [id number])[phone] Director: Giovani Stafford MD Anion gap [Moles/Vol] 10 mmol/L Normal 9-17 [facility] Comment on above: Performed By: #### Leonela Cote, CDP, BMPX ####[facility] [address] [place], [place] [id number])[phone] Director: Giovani Stafford MD Calcium [Mass/Vol] 7.9 mg/dL Low 8.6-10.4 [facility] Comment on above: Performed By: #### Leonela Cote, CDP, BMPX ####[facility] [address] [place] [address])[phone] Director: Giovani Stafford MD Chloride [Moles/Vol] 99 mmol/L Normal 98-107 [facility] Comment on above: Performed By: #### KAYLA Gillis, BMPX ####[facility] [address] [place], [place] [address])[phone] Director: Giovani Stafford MD CO2 [Moles/Vol] 30 mmol/L Normal 20-31 [facility] Comment on above: Performed By: #### KAYLA Gillis, BMPX ####[facility] [address] [place], [place] [address])[phone] Director: Giovani Stafford MD Creatinine [Mass/Vol] 0.4 mg/dL Low 0.7-1.2 [facility] Comment on above: Performed By: #### Leonela Cote, CDP, BMPX ####[facility] [address] [place], [place] [id number])[phone] Director: Giovani Stafford MD GFR/1.73 sq M.predicted among non-blacks MDRD (S/P/Bld) [Vol rate/Area] mL/min/{1.73_m2} Normal >60 [facility] Comment on above: Result Comment: These results [...] affects renal tubular secretion. Performed By: #### KAYLA Gillis, BMPX ####[facility] [address] [place], [place] [id number])[phone] Director: Giovani Stafford MD Glucose [Mass/Vol] 84 mg/dL Normal 70-99 [facility] Comment on above: Performed By: #### KAYLA Gillis, BMPX ####[facility] [address] [place] [address] 78187419)[phone] Director: Giovani Stafford MD Sodium [Moles/Vol] 139 mmol/L Normal 135-144 [facility] Comment on above: Performed By: #### KAYLA Gillis, BMPX ####[facility] [address] [place], [place] [phone] Director: Giovani Stafford MD Urea nitrogen [Mass/Vol] 18 mg/dL Normal 8-23 [facility] Comment on above: Performed By: #### KAYLA Gillis, BMPX ####[facility] [address] [place], [place] [id number])[phone] Director: Giovani Stafford MD CBC with Diffon 06-29-2023 Abs. Basophil 0.00 k/uL Normal 0.00-0.20 [facility] Comment on above: Performed By: #### KAYLA Gillis, BMPX ####[facility] [address] [place], [place] [id number])[phone] Director: Giovani Stafford MD Abs.Imm.Granulocyte 0.13 k/uL Normal 0.00-0.30 [facility] Comment on above: Performed By: #### Leonela Cote, CDP, BMPX ####[facility] [address] [place], [place] [address])[phone] Director: Giovani Stafford MD Abs.Neutrophil (Seg) 10.74 k/uL High 1.50-8.10 [facility] Comment on above: Performed By: #### Leonela Cote, CDP, BMPX ####[facility] [address] [place], [place] [address])[phone] Director: Giovani Stafford MD Basophils/100 WBC (Bld) 0 % Normal 0-2 [facility] Comment on above: Performed By: #### Leonela Cote, CDP, BMPX ####[place], [place] [address])[phone] Director: Giovani Stafford MD Eosinophils (Bld) [#/Vol] 0.00 10*3/uL Normal 0.00-0.44 [facility] Comment on above: Performed By: #### Leonela Cote CDP, BMPX ####[place], [place] [address])[phone] Director: Giovani Stafford MD Eosinophils/100 WBC (Bld) 0 % Low 1-4 [facility] Comment on above: Performed By: #### Leonela Cote CDP, BMPX ####[place], [place] [address])[phone] Director: Giovani Stafford MD Immature granulocytes/100 WBC (Bld) 1 % High 0 [facility] Comment on above: Performed By: #### Leonela Cote, CDP, BMPX ####[place], [place] [address])[phone] Director: Giovani Stafford MD Lymphocytes (Bld) [#/Vol] 0.63 10*3/uL Low 1.10-3.70 [facility] Comment on above: Performed By: #### Leonela Cote, CDP, BMPX ####[facility] [address] [place], [place] [id number])[phone] Director: Giovani Stafford MD Lymphocytes/100 WBC (Bld) 5 % Low 24-43 [facility] Comment on above: Performed By: #### M G, CDP, BMPX ####[facility] [address] [place] [address] Lab Director: Giovani Stafford MD Monocytes (Bld) [#/Vol] 1.00 10*3/uL Normal 0.10-1.20 [facility] Comment on above: Performed By: #### M Kera, CDP, BMPX ####[address] [address] Lab Director: Giovani Stafford MD Monocytes/100 WBC (Bld) 8 % Normal 3-12 M [facility] Comment on above: Performed By: #### M Kera, CDP, BMPX ####[facility] [address] [place] [address] Lab Director: Giovani Stafford MD Morphology Ambrose (Bld) [Interp] Normal Normal [facility] Comment on above: Performed By: #### M G, CDP, BMPX ####[facility] [address] [place] [address] Lab Director: Giovani Stafford MD Neutrophil (Seg) 86 % High 36-65 [facility] Comment on above: Performed By: #### M G, CDP, BMPX ####[facility] [address] [place], [place] [phone] Director: Giovani Stafford MD Erythrocyte distribution width (RBC) [Ratio] 13.2 % Normal 11.8-14.4 [facility] Comment on above: Performed By: #### M G, CDP, BMPX ####[facility] [address] [place], [place] [id number])[phone] Director: Giovani Stafford MD Hematocrit (Bld) [Volume fraction] 29.7 % Low 40.7-50.3 [facility] Comment on above: Performed By: #### M KAYLA Cote, BMPX ####[facility] [address] [place] [address] Lab Director: Giovani Stafford MD Hemoglobin (Bld) [Mass/Vol] 9.6 g/dL Low 13.0-17.0 [facility] Comment on above: Performed By: #### M KAYLA oCte, BMPX ####[facility] [address] [place] [address] [facility] Director: Giovani Stafford MD MCH (RBC) [Entitic mass] 31.3 pg Normal 25.2-33.5 [facility] Comment on above: Performed By: #### KAYLA Gillis, BMPX ####[facility] [address] [place], [place] [phone] Director: Giovani Stafford MD MCHC (RBC) [Mass/Vol] 32.3 g/dL Normal 28.4-34.8 [facility] Comment on above: Performed By: #### KAYLA Gillis, BMPX ####[facility] [address] [place], [place] 75683419)[phone] Director: Giovani Stafford MD MCV (RBC) [Entitic vol] 96.7 fL Normal 82.6-102.9 [facility] Comment on above: Performed By: #### M KAYLA Cote, BMPX ####[facility] [address] [place] [address] Lab Director: Giovani Stafford MD NRBC Automated 0.0 per 100 WBC Normal 0.0 [facility] Comment on above: Performed By: #### KAYLA Gillis, BMPX ####[facility] [address] [place] [address] Lab Director: Giovani Stafford MD Platelet mean volume (Bld) [Entitic vol] 10.9 fL Normal 8.1-13.5 [facility] Comment on above: Performed By: #### KAYLA Gillis, BMPX ####[facility] [address] [place] [address] Lab Director: Giovani Stafford MD Platelets (Bld) [#/Vol] 263 10*3/uL Normal 138-453 [facility] Comment on above: Performed By: #### KAYLA Gillis, BMPX ####[facility] [address] [place] [address] Lab Director: Giovain Stafford MD RBC (Bld) [#/Vol] 3.07 10*6/uL Low 4.21-5.77 [facility] Comment on above: Performed By: #### KAYLA Gillis, BMPX ####[facility] [address] [place] [address] Lab Director: Giovani Stafford MD WBC (Bld) [#/Vol] 12.5 10*3/uL High 3.5-11.3 [facility] Comment on above: Performed By: #### KAYLA Gillis, BMPX ####[facility] [address] [place], [place] [id number])[phone] Director: Giovani Stafford MD FL MODIFIED BARIUM SWALLOW W VIDEOon 06-29-2023 FL MODIFIED BARIUM SWALLOW W VIDEO EXAMINATION: MODIFIED BARIUM SWALLOW WAS PERFORMED IN CONJUNCTION WITH [employer] TECHNIQUE: Under fluoroscopic evaluation cineradiography/vide oradiography recordings were performed in conjunction with the speech-language pathologist ([facility] [employer]END[employer]). Various liquid, solid and/or semi-solid barium preparations [...] discussion of findings and recommendations. Interpreted by: Beot Canales MD Signed by: Beto Canales MD 06/29/23 Final result Normal [facility] Glucose,Whole Bloodon 2023 Glucose [Mass/Vol] 231 mg/dL High 75-110 [facility] Glucose [Mass/Vol] 72 mg/dL Low 75-110 [facility] Glucose [Mass/Vol] 87 mg/dL Normal 75-110 [facility] Glucose [Mass/Vol] 76 mg/dL Normal 75-110 [facility] Hgb/Hcton 06-29-2023 Hematocrit (Bld) [Volume fraction] 29.8 % Low 40.7-50.3 [facility] Comment on above: Performed By: #### R BHAVANA LYTE, B12FOL, MG #### [facility] [address] [place] [address] Teacher Ballet: Giovani Stafford MD Hemoglobin (Bld) [Mass/Vol] 9.8 g/dL Low 13.0-17.0 [facility] Comment on above: Performed By: #### R EJEC LYTE, B12FOL, MG #### [facility] [address] [place] [address] Teacher Ballet: Giovani Stafford MD Magnesiumon 06-29-2023 Magnesium [Mass/Vol] 1.4 mg/dL Low 1.6-2.6 [facility] Comment on above: Performed By: #### M G, CDP, BMPX ####[facility] [address] [place] [address] Lab Director: Giovani Stafford MD Basic Metab w/rfx MGon 06-28 Anion gap [Moles/Vol] 9 mmol/L Normal 9-17 [facility] Comment on above: Performed By: #### C DP, BMPX, MG, SUYAPA #### [facility] [address] [place] [address] Teacher Ballet: Giovani Stafford MD Calcium [Mass/Vol] 8.3 mg/dL Low 8.6-10.4 [facility] Comment on above: Performed By: #### C DP, BMPX, MG, SUYAPA #### [facility] [address] [place] [address] Teacher Ballet: Giovani Stafford MD Chloride [Moles/Vol] 101 mmol/L Normal 98-107 [facility] Comment on above: Performed By: #### C DP, BMPX, MG, SUYAPA #### [facility] [address] [place] [address] Teacher Ballet: Giovani Stafford MD CO2 [Moles/Vol] 26 mmol/L Normal 20-31 [facility] Comment on above: Performed By: #### C DP, BMPX, MG, SUYAPA #### [facility] [address] [place] [address] Teacher Ballet: Giovani Staffodr MD Creatinine [Mass/Vol] 0.5 mg/dL Low 0.7-1.2 [facility] Comment on above: Performed By: #### C DP, BMPX, MG, SUYAAP #### [facility] [employer] [address] [place] [address] Teacher Ballet: Giovani Stafford MD GFR/1.73 sq M.predicted among non-blacks MDRD (S/P/Bld) [Vol rate/Area] mL/min/{1.73_m2} Normal >60 [facility] Comment on above: Result Comment: These results [...] #### C DP, BMPX, MG, SUYAPA #### [facility] [address] [place] [address] Teacher Ballet: Giovani Stafford MD Glucose [Mass/Vol] 103 mg/dL High 70-99 [facility] Comment on above: Performed By: #### C DP, BMPX, MG, SUYAPA #### [facility] [address] [place] [address] Teacher Ballet: Giovani Stafford MD Potassium [Moles/Vol] 4.3 mmol/L Normal 3.7-5.3 [facility] Comment on above: Result Comment: SPEC IMEN MODERATELY HEMOLYZED, RESULTS MAY BE ADVERSELY AFFECTED Performed By: #### C DP, BMPX, MG, SUYAPA #### [address] [address] Teacher Ballet: Giovani Stafford MD Sodium [Moles/Vol] 136 mmol/L Normal 135-144 [facility] Comment on above: Performed By: #### C DP, BMPX, MG, SUYAPA #### [facility] [employer] [address] [place] [address] Teacher Ballet: Giovani Stafford MD Urea nitrogen [Mass/Vol] 22 mg/dL Normal 8-23 [facility] Comment on above: Performed By: #### C DP, BMPX, MG, SUYAPA #### [facility] [employer] [address] [place] [address] Teacher Ballet: Giovani Stafford MD CBC with Diffon 06-28-2023 Abs. Basophil <0.03 Normal 0.00-0.20 [facility] Comment on above: Performed By: #### C DP, BMPX, MG, SUYAPA #### [facility] [employer] [address] [place] [address] Teacher Ballet: Giovani Stafford MD Abs. Eosinophil <0.03 Normal 0.00-0.44 [facility] Comment on above: Performed By: #### C DP, BMPX, MG, SUYAPA #### [address] [address] Teacher Ballet: Giovani Stafford MD Abs.Imm.Granulocyte 0.11 k/uL Normal 0.00-0.30 [facility] Comment on above: Performed By: #### C DP, BMPX, MG, SUYAPA #### [address] [address] Teacher Ballet: Giovani Stafford MD Abs.Neutrophil (Seg) 9.05 k/uL High 1.50-8.10 [facility] Comment on above: Performed By: #### C DP, BMPX, MG, SUYAPA #### [address] [address] Teacher Ballet: Giovani Stafford MD Basophils/100 WBC (Bld) 0 % Normal 0-2 M [facility] Comment on above: Performed By: #### C DP, BMPX, MG, SUYAPA #### [address] [address] Teacher Ballet: Giovani Stafford MD Eosinophils/100 WBC (Bld) 0 % Low 1-4 [facility] Comment on above: Performed By: #### C DP, BMPX, MG, SUYAPA #### [facility] [employer] [address] [place] [address] Teacher Ballet: Giovani Stafford MD Erythrocyte distribution width (RBC) [Ratio] 13.5 % Normal 11.8-14.4 [facility] Comment on above: Performed By: #### C DP, BMPX, MG, SUYAPA #### [facility] [employer] [address] [place] [address] Teacher Ballet: Giovani Stafford MD Hematocrit (Bld) [Volume fraction] 30.6 % Low 40.7-50.3 [facility] Comment on above: Performed By: #### C DP, BMPX, MG, SUYAPA #### [facility] [employer] [address] [place] [address] Teacher Ballet: Giovani Stafford MD Hemoglobin (Bld) [Mass/Vol] 10.4 g/dL Low 13.0-17.0 [facility] Comment on above: Performed By: #### C DP, BMPX, MG, SUYAPA #### [facility] [employer] [address] [place] [address] Teacher Ballet: Giovani Stafford MD Immature granulocytes/100 WBC (Bld) 1 % High 0 [facility] Comment on above: Performed By: #### C DP, BMPX, MG, SUYAPA #### [address] [address] Teacher Ballet: Giovani Stafford MD Lymphocytes (Bld) [#/Vol] 0.93 10*3/uL Low 1.10-3.70 [facility] Comment on above: Performed By: #### C DP, BMPX, MG, SUYAPA #### [facility] [employer] [address] [place] [address] Teacher Ballet: Giovani Stafford MD Lymphocytes/100 WBC (Bld) 8 % Low 24-43 [facility] Comment on above: Performed By: #### C DP, BMPX, MG, SUYAPA #### [facility] [employer] [address] [place] [address] Teacher Ballet: Giovani Stafford MD MCH (RBC) [Entitic mass] 32.1 pg Normal 25.2-33.5 [facility] Comment on above: Performed By: #### C DP, BMPX, MG, SUYAPA #### [facility] [employer] [address] [place] [address] Teacher Ballet: Giovani Stafford MD MCHC (RBC) [Mass/Vol] 34.0 g/dL Normal 28.4-34.8 [facility] Comment on above: Performed By: #### C DP, BMPX, MG, SUYAPA #### [address] [address] Teacher Ballet: Giovani Stafford MD MCV (RBC) [Entitic vol] 94.4 fL Normal 82.6-102.9 [facility] Comment on above: Performed By: #### C DP, BMPX, MG, SUYAPA #### [address] [address] Teacher Ballet: Giovani Stafford MD Monocytes (Bld) [#/Vol] 1.09 10*3/uL Normal 0.10-1.20 [facility] Comment on above: Performed By: #### C DP, BMPX, MG, SUYAPA #### [address] [address] Teacher Ballet: Giovani Stafford MD Monocytes/100 WBC (Bld) 10 % Normal 3-12 [facility] Comment on above: Performed By: #### C DP, BMPX, MG, SUYAPA #### [address] [address] Teacher Ballet: Giovani Stafford MD Neutrophil (Seg) 81 % High 36-65 [facility] Comment on above: Performed By: #### C DP, BMPX, MG, SUYAPA #### [address] [address] Teacher Ballet: Giovani Stafford MD NRBC Automated 0.0 per 100 WBC Normal 0.0 [facility] Comment on above: Performed By: #### C DP, BMPX, MG, SUYAPA #### [address] [address] Teacher Ballet: Giovani Stafford MD Platelet mean volume (Bld) [Entitic vol] 11.8 fL Normal 8.1-13.5 [facility] Comment on above: Performed By: #### C DP, BMPX, MG, SUYAPA #### [facility] [employer] [address] [place] [address] Teacher Ballet: Giovani Stafford MD Platelets (Bld) [#/Vol] 239 10*3/uL Normal 138-453 [facility] Comment on above: Performed By: #### C DP, BMPX, MG, SUYAPA #### [facility] [employer] [address] [place] [address] Teacher Ballet: Giovani Stafford MD RBC (Bld) [#/Vol] 3.24 10*6/uL Low 4.21-5.77 [facility] Comment on above: Performed By: #### C DP, BMPX, MG, SUYAPA #### [facility] [employer] [address] [place] [address] Teacher Ballet: Giovani Stafford MD WBC (Bld) [#/Vol] 11.2 10*3/uL Normal 3.5-11.3 [facility] Comment on above: Performed By: #### C DP, BMPX, MG, SUYAPA #### [facility] [employer] [address] [place] [address] Teacher Ballet: Giovani Stafford MD Glucose,Whole Bloodon 2023 Glucose [Mass/Vol] 95 mg/dL Normal 75-110 [facility] Glucose [Mass/Vol] 96 mg/dL Normal 75-110 [facility] Glucose [Mass/Vol] 103 mg/dL Normal 75-110 [facility] Glucose [Mass/Vol] 120 mg/dL High 75-110 [facility] Hgb/Hcton 06-28-2023 Hematocrit (Bld) [Volume fraction] 31.7 % Low 40.7-50.3 [facility] Comment on above: Performed By: #### C DP, BMPX, MG, SUYAPA #### [facility] [address] [place] [address] Teacher Ballet: Giovani Stafford MD Hemoglobin (Bld) [Mass/Vol] 10.0 g/dL Low 13.0-17.0 [facility] Comment on above: Performed By: #### C DP, BMPX, MG, SUYAPA #### [facility] [facility] [address] [place] [phone] Teacher Ballet: Giovani Stafford MD Hematocrit (Bld) [Volume fraction] 32.4 % Low 40.7-50.3 [facility] Comment on above: Performed By: #### H H ####[address] [phone] Director: Giovani Stafford MD Hemoglobin (Bld) [Mass/Vol] 10.0 g/dL Low 13.0-17.0 [facility] Comment on above: Performed By: #### H H ####[facility] [id number] [place] [address] [phone] Director: Giovani Stafford MD Hematocrit (Bld) [Volume fraction] 31.6 % Low 40.7-50.3 [facility] Comment on above: Performed By: #### PINA SANTANATE, B12FOL, MG #### [facility] [address] [place] [address] Teacher Ballet: Giovani Stafford MD Hemoglobin (Bld) [Mass/Vol] 10.2 g/dL Low 13.0-17.0 [facility] Comment on above: Performed By: #### R EJEC, LYTE, B12FOL, MG #### [facility] [address] [place] [address] Teacher Ballet: Giovani Stafford MD Magnesiumon 06-28-2023 Magnesium [Mass/Vol] 2.1 mg/dL Normal 1.6-2.6 [facility] Comment on above: Performed By: #### C DP, BMPX, MG, SUYAPA #### [facility] [employer] [address] [place] [address] [phone] Teacher Ballet: Giovani Stafford MD Phosphorus, Inorg.on 024 Phosphorus, Inorg. 2.4 mg/dL Low 2.5-4.5 [facility] Comment on above: Performed By: #### C DP, BMPX, MG, SUYAPA #### [facility] [address] [place] [address] [phone] Teacher Ballet: Giovani Stafford MD XR CHEST PORTABLEon 06-28-19 [...] Phyllis Nixon MD 06/28/23 Final result Normal [facility] Basic Metab w/rfx MGon 06-27 Anion gap [Moles/Vol] 7 mmol/L Low 9-17 [facility] Comment on above: Performed By: #### R EJEC, LYTE, B12FOL, MG #### [facility] [employer] [address] [place] [address] [phone] Teacher Ballet: Giovani Stafford MD Calcium [Mass/Vol] 8.3 mg/dL Low 8.6-10.4 [facility] Comment on above: Performed By: #### R EJEC, LYTE, B12FOL, MG #### [facility] [employer] [address] [place] [address] [phone] Teacher Ballet: Giovani Stafford MD Chloride [Moles/Vol] 103 mmol/L Normal 98-107 [facility] Comment on above: Performed By: #### R EJPINA RAETE B12FOL, MG #### [facility] [place] [address] Teacher Ballet: Giovani Stafford MD CO2 [Moles/Vol] 26 mmol/L Normal 20-31 [facility] Comment on above: Performed By: #### R EJEC LYTE B12FOL, MG #### [facility] [address] [place] [address] Teacher Ballet: Giovani Stafford MD Creatinine [Mass/Vol] 0.4 mg/dL Low 0.7-1.2 [facility] Comment on above: Performed By: #### R ALVA BATEMAN B12FOL, MG #### [address] [address] Teacher Ballet: Giovani Stafford MD GFR/1.73 sq M.predicted among non-blacks MDRD (S/P/Bld) [Vol rate/Area] mL/min/{1.73_m2} Normal >60 [facility] Comment on above: Result Comment: These results [...] renal tubular secretion. Performed By: #### R EJPINA RAETE B12FOL, MG #### [facility] [employer] [address] [place] [address] Teacher Ballet: Giovani Stafford MD Glucose [Mass/Vol] 200 mg/dL High 70-99 [facility] Comment on above: Performed By: #### R EJEC LYTE, B12FOL, MG #### [facility] [address] [place] [address] Teacher Ballet: Giovani Stafford MD Potassium [Moles/Vol] 4.1 mmol/L Normal 3.7-5.3 [facility] Comment on above: Performed By: #### R EJEC, LYTE, B12FOL, MG #### [facility] [address] [place] [address] Teacher Ballet: Giovani Stafford MD Sodium [Moles/Vol] 136 mmol/L Normal 135-144 [facility] Comment on above: Performed By: #### R EJEC, LYTE, B12FOL, MG #### [facility] [address] [place] [address] Teacher Ballet: Giovani Stafford MD Urea nitrogen [Mass/Vol] 29 mg/dL High 8-23 [facility] Comment on above: Performed By: #### R EJEC, LYTE, B12FOL, MG #### [facility] [employer] [address] [place] [address] Teacher Ballet: Giovani Stafford MD Anion gap [Moles/Vol] 7 mmol/L Low 9-17 [facility] Comment on above: Performed By: #### R EJEC, LYTE, B12FOL, MG #### [facility] [address] [place] [address] Teacher Ballet: Giovani Stafford MD Calcium [Mass/Vol] 8.4 mg/dL Low 8.6-10.4 [facility] Comment on above: Performed By: #### R EJEC, LYTE, B12FOL, MG #### [facility] [address] [place] [address] Teacher Ballet: Giovani Stafford MD Chloride [Moles/Vol] 103 mmol/L Normal 98-107 [facility] Comment on above: Performed By: #### R EJEC, LYTE, B12FOL, MG #### [facility] [place] [address] Teacher Ballet: Giovani Stafford MD CO2 [Moles/Vol] 25 mmol/L Normal 20-31 [facility] Comment on above: Performed By: #### R EJEC LYTE, B12FOL, MG #### [facility] [address] [place] [address] Teacher Ballet: Giovani Stafford MD Creatinine [Mass/Vol] 0.5 mg/dL Low 0.7-1.2 [facility] Comment on above: Performed By: #### R EJEC LYTE, B12FOL, MG #### [address] [address] Teacher Ballet: Giovani Stafford MD GFR/1.73 sq M.predicted among non-blacks MDRD (S/P/Bld) [Vol rate/Area] mL/min/{1.73_m2} Normal >60 [facility] Comment on above: Result Comment: These results [...] #### R EJEC, LYTE, B12FOL, MG #### [facility] [place] [address] Teacher Ballet: Giovani Stafford MD Glucose [Mass/Vol] 199 mg/dL High 70-99 [facility] Comment on above: Performed By: #### R EJEC, LYTE, B12FOL, MG #### [facility] [address] [place] [address] Teacher Ballet: Giovani Stafford MD Potassium [Moles/Vol] 4.0 mmol/L Normal 3.7-5.3 [facility] Comment on above: Performed By: #### R EJKYRA LYTE, B12FOL, MG #### [facility] [employer] [address] [place] [address] Teacher Ballet: Giovani Stafford MD Sodium [Moles/Vol] 135 mmol/L Normal 135-144 [facility] Comment on above: Performed By: #### R EJEC, LYTE, B12FOL, MG #### [facility] [address] [place] [address] Teacher Ballet: Giovani Stafford MD Urea nitrogen [Mass/Vol] 33 mg/dL High 8-23 [facility] Comment on above: Performed By: #### R EJEC, LYTE, B12FOL, MG #### [facility] [employer] [address] [place] [address] Teacher Ballet: Giovani Stafford MD CBC with Diffon 06-27-2023 Abs. Basophil 0.00 k/uL Normal 0.0-0.2 [facility] Comment on above: Performed By: #### R BHAVANA, LYTE, B12FOL, MG #### [facility] [employer] [address] [place] [address] Teacher Ballet: Giovani Stafford MD Abs.Imm.Granulocyte 0.00 k/uL Normal 0.00-0.30 [facility] Comment on above: Performed By: #### R EJEC, LYTE, B12FOL, MG #### [facility] [employer] [address] [place] [address] Teacher Ballet: Giovani Stafford MD Abs.Neutrophil (Seg) 7.36 k/uL Normal 1.8-7.7 [facility] Comment on above: Performed By: #### R EJEC, LYTE, B12FOL, MG #### [facility] [employer] [address] [place] [address] Teacher Ballet: Giovani Stafford MD Basophils/100 WBC (Bld) 0 % Normal 0-2 [facility] Comment on above: Performed By: #### R EJEC, LYTE, B12FOL, MG #### [address] [address] Teacher Ballet: Giovani Stafford MD Eosinophils (Bld) [#/Vol] 0.00 10*3/uL Normal 0.0-0.4 [facility] Comment on above: Performed By: #### R EJEC, LYTE, B12FOL, MG #### [address] [address] Teacher Ballet: Giovani Stafford MD Eosinophils/100 WBC (Bld) 0 % Low 1-4 [facility] Comment on above: Performed By: #### R EJEC, LYTE, B12FOL, MG #### [address] [address] Teacher Ballet: Giovani Stafford MD Immature granulocytes/100 WBC (Bld) 0 % Normal 0 [facility] Comment on above: Performed By: #### R EJEC, LYTE, B12FOL, MG #### [address] [address] Teacher Ballet: Giovani Stafford MD Lymphocytes (Bld) [#/Vol] 0.32 10*3/uL Low 1.0-4.8 [facility] Comment on above: Performed By: #### R EJEC, LYTE, B12FOL, MG #### [address] [address] Teacher Ballet: Giovani Stafford MD Lymphocytes/100 WBC (Bld) 4 % Low 24-44 [facility] Comment on above: Performed By: #### R EJEC, LYTE, B12FOL, MG #### [address] [address] Teacher Ballet: Giovani Stafford MD Monocytes (Bld) [#/Vol] 0.32 10*3/uL Normal 0.1-0.8 [facility] Comment on above: Performed By: #### R EJEC, LYTE, B12FOL, MG #### [address] [address] Teacher Ballet: Giovani Stafford MD Monocytes/100 WBC (Bld) 4 % Normal 1-7 [facility] Comment on above: Performed By: #### R EJEC, LYTE, B12FOL, MG #### [address] [address] Teacher Ballet: Giovani Stafford MD Morphology Ambrose (Bld) [Interp] INCREASED BANDS PRESENT Normal [facility] Comment on above: Performed By: #### R EJEC, LYTE, B12FOL, MG #### [address] [address] Teacher Ballet: Giovani Stafford MD Neutrophil (Seg) 92 % High 36-66 [facility] Comment on above: Performed By: #### R EJEC, LYTE, B12FOL, MG #### [address] [address] Teacher Ballet: Giovani Stafford MD Erythrocyte distribution width (RBC) [Ratio] 13.9 % Normal 11.8-14.4 [facility] Comment on above: Performed By: #### R EJEC, LYTE, B12FOL, MG #### [address] [address] Teacher Ballet: Giovani Stafford MD Hematocrit (Bld) [Volume fraction] 27.8 % Low 40.7-50.3 [facility] Comment on above: Performed By: #### R EJEC, LYTE, B12FOL, MG #### [address] [address] Teacher Ballet: Giovani Stafford MD Hemoglobin (Bld) [Mass/Vol] 9.0 g/dL Low 13.0-17.0 [facility] Comment on above: Performed By: #### R BHAVANA LYTE B12FOL, MG #### [address] [address] Teacher Ballet: Giovani Stafford MD MCH (RBC) [Entitic mass] 31.8 pg Normal 25.2-33.5 [facility] Comment on above: Performed By: #### R BHAVANA LYTE B12FOL, MG #### [address] [address] Teacher Ballet: Giovani Stafford MD MCHC (RBC) [Mass/Vol] 32.4 g/dL Normal 28.4-34.8 [facility] Comment on above: Performed By: #### R PINA BATEMANTE B12FOL, MG #### [address] [address] Teacher Ballet: Giovani Stafford MD MCV (RBC) [Entitic vol] 98.2 fL Normal 82.6-102.9 [facility] Comment on above: Performed By: #### R ALVA BATEMAN B12FOL, MG #### [address] [address] Teacher Ballet: Giovani Stafford MD NRBC Automated 0.0 per 100 WBC Normal 0.0 [facility] Comment on above: Performed By: #### R ALVA BATEMAN B12FOL, MG #### [address] [address] Teacher Ballet: Giovani Stafford MD Platelet mean volume (Bld) [Entitic vol] 11.4 fL Normal 8.1-13.5 [facility] Comment on above: Performed By: #### R EJEC, LYTE, B12FOL, MG #### [facility] [address] [place] [address] Teacher Ballet: Giovani Stafford MD Platelets (Bld) [#/Vol] 231 10*3/uL Normal 138-453 [facility] Comment on above: Performed By: #### R EJEC, LYTE, B12FOL, MG #### [facility] [address] [place] [address] Teacher Ballet: Giovani Stafford MD RBC (Bld) [#/Vol] 2.83 10*6/uL Low 4.21-5.77 [facility] Comment on above: Performed By: #### R EJEC, LYTE, B12FOL, MG #### [facility] [employer] [address] [place] [address] Teacher Ballet: Giovani Stafford MD WBC (Bld) [#/Vol] 8.0 10*3/uL Normal 3.5-11.3 [facility] Comment on above: Performed By: #### R EJEC, LYTE, B12FOL, MG #### [facility] [address] [place] [address] Teacher Ballet: Giovani Stafford MD Abs. Basophil 0.00 k/uL Normal 0.0-0.2 [facility] Comment on above: Performed By: #### R EJEC, LYTE, B12FOL, MG #### [employer] [address] [place] [address] Teacher Ballet: Giovani Stafford MD Abs.Imm.Granulocyte 0.00 k/uL Normal 0.00-0.30 [facility] Comment on above: Performed By: #### R EJEC, LYTE, B12FOL, MG #### [employer] [address] [place] [address] Teacher Ballet: Giovani Stafford MD Abs.Neutrophil (Seg) 8.45 k/uL High 1.8-7.7 [facility] Comment on above: Performed By: #### R PINA BATEMANTE, B12FOL, MG #### [address] [address] Teacher Ballet: Giovani Stafford MD Basophils/100 WBC (Bld) 0 % Normal 0-2 [facility] Comment on above: Performed By: #### R EJEC, LYTE, B12FOL, MG #### [address] [address] Teacher Ballet: Giovani Stafford MD Eosinophils (Bld) [#/Vol] 0.00 10*3/uL Normal 0.0-0.4 [facility] Comment on above: Performed By: #### R EJKYRA, LYTE, B12FOL, MG #### [address] [address] Teacher Ballet: Giovani Stafford MD Eosinophils/100 WBC (Bld) 0 % Low 1-4 [facility] Comment on above: Performed By: #### R EJEC, LYTE, B12FOL, MG #### [address] [address] Teacher Ballet: Giovani Stafford MD Immature granulocytes/100 WBC (Bld) 0 % Normal 0 [facility] Comment on above: Performed By: #### R EJEC, LYTE, B12FOL, MG #### [address] [address] Teacher Ballet: Giovani Stafford MD Lymphocytes (Bld) [#/Vol] 0.09 10*3/uL Low 1.0-4.8 [facility] Comment on above: Performed By: #### R EJEC, LYTE, B12FOL, MG #### [address] [address] Teacher Ballet: Giovani Stafford MD Lymphocytes/100 WBC (Bld) 1 % Low 24-44 [facility] Comment on above: Performed By: #### R EJEC, LYTE, B12FOL, MG #### [address] [address] Teacher Ballet: Giovani Stafford MD Monocytes (Bld) [#/Vol] 0.36 10*3/uL Normal 0.1-0.8 [facility] Comment on above: Performed By: #### R EJEC, LYTE, B12FOL, MG #### [address] [address] Teacher Ballet: Giovani Stafford MD Monocytes/100 WBC (Bld) 4 % Normal 1-7 [facility] Comment on above: Performed By: #### R EJEC, LYTE, B12FOL, MG #### [address] [address] Teacher Ballet: Giovani Stafford MD Morphology Ambrose (Bld) [Interp] INCREASED BANDS PRESENT Normal [facility] Comment on above: Performed By: #### R EJEC, LYTE, B12FOL, MG #### [facility] [employer] [address] [place] [address] Teacher Ballet: Giovani Stafford MD Neutrophil (Seg) 95 % High 36-66 [facility] Comment on above: Performed By: #### R EJEC, LYTE, B12FOL, MG #### [facility] [employer] [address] [place] [address] Teacher Ballet: Giovani Stafford MD Erythrocyte distribution width (RBC) [Ratio] 13.9 % Normal 11.8-14.4 [facility] Comment on above: Performed By: #### R EJEC, LYTE, B12FOL, MG #### [facility] [employer] [address] [place] [address] Teacher Ballet: Giovani Stafford MD Hematocrit (Bld) [Volume fraction] 28.2 % Low 40.7-50.3 [facility] Comment on above: Performed By: #### R EJKYRA, LYTE, B12FOL, MG #### [address] [address] Teacher Ballet: Giovani Stafford MD Hemoglobin (Bld) [Mass/Vol] 9.1 g/dL Low 13.0-17.0 [facility] Comment on above: Performed By: #### R EJKYRA, LYTE, B12FOL, MG #### [address] [address] Teacher Ballet: Giovani Stafford MD MCH (RBC) [Entitic mass] 31.8 pg Normal 25.2-33.5 [facility] Comment on above: Performed By: #### R EJKYRA LYTE, B12FOL, MG #### [address] [address] Teacher Ballet: Giovani Stafford MD MCHC (RBC) [Mass/Vol] 32.3 g/dL Normal 28.4-34.8 [facility] Comment on above: Performed By: #### R PINA BATEMANTE, B12FOL, MG #### [address] [address] Teacher Ballet: Giovani Stafford MD MCV (RBC) [Entitic vol] 98.6 fL Normal 82.6-102.9 [facility] Comment on above: Performed By: #### R EJEC LYTE, B12FOL, MG #### [address] [address] Teacher Ballet: Giovani Stafford MD NRBC Automated 0.0 per 100 WBC Normal 0.0 [facility] Comment on above: Performed By: #### R EJPINA RAETE B12FOL, MG #### [facility] [employer] [address] [place] [address] Teacher Ballet: Giovani Stafford MD Platelet mean volume (Bld) [Entitic vol] 10.5 fL Normal 8.1-13.5 [facility] Comment on above: Performed By: #### R EJEC, LYTE, B12FOL, MG #### [facility] [address] [place] [address] Teacher Ballet: Giovani Stafford MD Platelets (Bld) [#/Vol] 236 10*3/uL Normal 138-453 [facility] Comment on above: Performed By: #### R EJEC, LYTE, B12FOL, MG #### [facility] [employer] [address] [place] [address] Teacher Ballet: Giovani Stafford MD RBC (Bld) [#/Vol] 2.86 10*6/uL Low 4.21-5.77 [facility] Comment on above: Performed By: #### R EJEC, LYTE, B12FOL, MG #### [facility] [employer] [address] [place] [address] Teacher Ballet: Giovani Stafford MD WBC (Bld) [#/Vol] 8.9 10*3/uL Normal 3.5-11.3 [facility] Comment on above: Performed By: #### R EJEC, LYTE, B12FOL, MG #### [facility] [employer] [address] [place] [address] Teacher Ballet: Giovani Stafford MD Calcium, Ionicon 06-27-2023 Calcium [Moles/Vol] 1.18 mmol/L Normal 1.13-1.33 [facility] Comment on above: Performed By: #### R EJEC, LYTE, B12FOL, MG #### [facility] [employer] [address] [place] [address] Teacher Ballet: Giovani Stafford MD FL UGIon 06-27-2023 FL [...] stand and drink the oral contrast. Fluoroscopic technical sales manager images of the abdomen pelvis were obtained [...] Paul Barakat MD 06/27/23 Final result Normal [facility] Glucose,Whole Bloodon 2023 Glucose [Mass/Vol] 144 mg/dL High 75-110 [facility] Glucose [Mass/Vol] 190 mg/dL High 75-110 [facility] Hgb/Hcton 06-27-2023 Hematocrit (Bld) [Volume fraction] 33.0 % Low 40.7-50.3 [facility] Comment on above: Performed By: #### C DP, BMPX, MG, SUYAPA #### [address] [address] Teacher Ballet: Giovani Stafford MD Hemoglobin (Bld) [Mass/Vol] 11.1 g/dL Low 13.0-17.0 [facility] Comment on above: Performed By: #### C DP, BMPX, MG, SUYAPA #### [address] [address] Teacher Ballet: Giovani Stafford MD Lactic Acidon 06-27-2023 Lactic Acid,Whole Bl 0.9 mmol/L Normal 0.7-2.1 [facility] Comment on above: Performed By: #### PINA SANTANATE, B12FOL, MG #### [facility] [employer] [address] [place] [address] Teacher Ballet: Giovani Stafford MD Magnesiumon 06-27-2023 Magnesium [Mass/Vol] 2.1 mg/dL Normal 1.6-2.6 [facility] Comment on above: Performed By: #### ALVA SANTANA B12FOL, MG #### [facility] [employer] [address] [place] [address] Teacher Ballet: Giovani Stafford MD Magnesium [Mass/Vol] 1.7 mg/dL Normal 1.6-2.6 [facility] Comment on above: Performed By: #### R PINA BATEMANTE, B12FOL, MG #### [facility] [employer] [address] [place] [address] Teacher Ballet: Giovani Stafford MD PTon 06-27-2023 INR Coag (PPP) [Relative time] 1.4 {INR} Normal [facility] Comment on above: Result Comment: Therapeutic Range: Moderate Anticoagulant Intensity: INR = 2.0-3.0 High Anticoagulant Intensity: INR = 2.5-3.5 Performed By: #### R EJEC, LYTE, B12FOL, MG #### [employer] [address] [place] [address] Teacher Ballet: Giovani Stafford MD PT Coag (PPP) [Time] 16.5 s High 11.7-14.9 [facility] Comment on above: Performed By: #### R EJEC, LYTE, B12FOL, MG #### [facility] [address] [place] [address] Teacher Ballet: Giovani Stafford MD INR Coag (PPP) [Relative time] 1.4 {INR} Normal [facility] Comment on above: Result Comment: Therapeutic Range: Moderate Anticoagulant Intensity: INR = 2.0-3.0 High Anticoagulant Intensity: INR = 2.5-3.5 Performed By: #### C DP, BMPX, MG, SUYAPA #### [facility] [address] [place] [address] Teacher Ballet: Giovani Stafford MD PT Coag (PPP) [Time] 17.0 s High 11.7-14.9 [facility] Comment on above: Performed By: #### C DP, BMPX, MG, SUYAPA #### [facility] [address] [place] [address] Teacher Ballet: Giovani Stafford MD Phosphorus, Inorg.on 024 Phosphorus, Inorg. 2.9 mg/dL Normal 2.5-4.5 [facility] Comment on above: Performed By: #### R EJEC, LYTE, B12FOL, MG #### [employer] [address] [place] [address] Teacher Ballet: Giovani Stafford MD Phosphorus, Inorg. 2.8 mg/dL Normal 2.5-4.5 [facility] Comment on above: Performed By: #### R EJEC, LYTE, B12FOL, MG #### [employer] [address] [place] [address] Teacher Ballet: Givoani Stafford MD Specimen Rejectionon 024 Reason for rejection Unable to perform testing: Specimen quantity not sufficient. Normal [facility] Comment on above: Result Comment: JADA ICA Performed By: #### R EJEC, LYTE, B12FOL, MG #### [employer] [address] [place] [address] Teacher Ballet: Giovani Stafford MD Source of sample .BLOOD Normal [facility] Comment on above: Performed By: #### R EJEC, LYTE, B12FOL, MG #### [employer] [address] [place] [address] Teacher Ballet: Giovani Stafford MD Test ordered PT Normal [facility] Comment on above: Performed By: #### R EJEC, LYTE, B12FOL, MG #### [employer] [address] [place] [address] Teacher Ballet: Giovani Stafford MD TSH w/reflex to FT4on 2023 Thyroid Stim. Horm. 0.53 uIU/mL Normal 0.30-5.00 [facility] Comment on above: Performed By: #### R EJEC, LYTE, B12FOL, MG #### [employer] [address] [place] [address] Teacher Ballet: Giovani Stafford MD Vitamin D 25 OHon 06-27-2023 Vitamin D 25 OH 20.7 ng/mL Low >29.9 [facility] Comment on above: Result Comment: Reference Range: Vitamin D status Range Deficiency <20 ng/mL Mild Deficiency 20-30 ng/mL Sufficiency 30-100 ng/mL Toxicity >100 ng/mL Performed By: #### R EJEC, LYTE, B12FOL, MG #### [email or web address] [place] [address] Teacher Ballet: Giovani Stafford MD XR ABDOMEN FOR NG/OG/NE [...] Phyllis Nixon MD 06/27/23 Final result Normal [facility] XR ANKLE LEFT (2 VIEWS)on XR ANKLE [...] Vic Curry MD 06/27/23 Final result Normal [facility] XR ANKLE LEFT (MIN 3 VIEWS)o n [...] Vic Curry MD 06/27/23 Final result Normal [facility] XR TIBIA FIBULA LEFT (2 VIEW S)on [...] Ash Devi MD 06/27/23 Final result Normal [facility] APTTon 06-26-2023 aPTT Coag (Bld) [Time] 29.4 s Normal 23.0-36.5 [facility] Comment on above: Result Comment: IV Heparin Therapy Range: 66.0-92.0 sec Performed By: #### C DP, BMPX, MG, SUYAPA #### [employer] [address] [place], [place] [id number] Teacher Ballet: Giovani Stafford MD B12/Folate Panelon Cobalamin (Vitamin B12) [Mass/Vol] 485 pg/mL Normal 232-1245 [facility] Comment on above: Performed By: #### R EJEC, LYTE, B12FOL, MG #### [employer] [address] [place], [place] [phone] Teacher Ballet: Giovani Stafford MD Folic Acid 8.3 ng/mL Normal >4.8 [facility] Comment on above: Performed By: #### R BHAVANA LYTE, B12FOL, MG #### [facility] [employer] [address] [place] [address] Teacher Ballet: Giovani Stafford MD Basic Metab w/rfx MGon 06-26 Anion gap [Moles/Vol] 9 mmol/L Normal 9-16 [facility] Comment on above: Performed By: #### R EJEC, LYTE, B12FOL, MG #### [facility] [employer] [address] [place] [address] Teacher Ballet: Giovani Stafford MD Calcium [Mass/Vol] 5.7 mg/dL Critically low 8.6-10.4 [facility] Comment on above: Performed By: #### R BHAVANA LYTE, B12FOL, MG #### [facility] [employer] [address] [place] [address] Teacher Ballet: Giovani Stafford MD Chloride [Moles/Vol] 115 mmol/L High 98-107 [facility] Comment on above: Performed By: #### R EJEC, LYTE, B12FOL, MG #### [facility] [employer] [address] [place] [address] Teacher Ballet: Giovani Stafford MD CO2 [Moles/Vol] 20 mmol/L Normal 20-31 [facility] Comment on above: Performed By: #### R EJEC, LYTE, B12FOL, MG #### [facility] [employer] [address] [place] [address] Teacher Ballet: Giovani Stafford MD Creatinine [Mass/Vol] 0.5 mg/dL Low 0.70-1.20 [facility] Comment on above: Performed By: #### R EJEC, LYTE, B12FOL, MG #### [facility] [employer] [address] [place] [address] [phone] Teacher Ballet: Giovani Stafford MD GFR/1.73 sq M.predicted among non-blacks MDRD (S/P/Bld) [Vol rate/Area] mL/min/{1.73_m2} Normal >60 [facility] Comment on above: Result Comment: These results [...] renal tubular secretion. Performed By: #### R PINA BATEMANTE B12FOL, MG #### [facility] [address] [place] [address] Teacher Ballet: Giovani Stafford MD Glucose [Mass/Vol] 110 mg/dL High 74-99 [facility] Comment on above: Performed By: #### R PINA BATEMANTE B12FOL, MG #### [facility] [address] [place] [address] Teacher Ballet: Giovani Stafford MD Potassium [Moles/Vol] 2.5 mmol/L Critically low 3.7-5.3 [facility] Comment on above: Performed By: #### R ALVA BATEMAN B12FOL, MG #### [facility] [address] [place] [address] Teacher Ballet: Giovani Stafford MD Sodium [Moles/Vol] 144 mmol/L Normal 136-145 [facility] Comment on above: Performed By: #### R PINA BATEMANTE B12FOL, MG #### [facility] [address] [place] [address] Teacher Ballet: Giovani Stafford MD Urea nitrogen [Mass/Vol] 34 mg/dL High 8-23 [facility] Comment on above: Performed By: #### R EJEC, LYTE, B12FOL, MG #### [facility] [address] [place] [address] Teacher Ballet: Giovani Stafford MD Basic Metabolic Profon 06-26 Anion gap [Moles/Vol] 12 mmol/L Normal 9-17 [facility] Comment on above: Performed By: #### C DP, BMPX, MG, SUYAPA #### [facility] [address] [place] [address] 95186 Teacher Ballet: Giovani Stafford MD Calcium [Mass/Vol] 8.1 mg/dL Low 8.6-10.4 [facility] Comment on above: Performed By: #### C DP, BMPX, MG, SUYAPA #### [facility] [employer] [address] [place] [address] 95974 Teacher Ballet: Giovani Stafford MD Chloride [Moles/Vol] 98 mmol/L Normal 98-107 [facility] Comment on above: Performed By: #### C DP, BMPX, MG, SUYAPA #### [facility] [employer] [address] [place] [address] 8[address]29 Teacher Ballet: Giovani Stafford MD CO2 [Moles/Vol] 26 mmol/L Normal 20-31 [facility] Comment on above: Performed By: #### C DP, BMPX, MG, SUYAPA #### [facility] [employer] [address] [place] [address] 8[address]20 Teacher Ballet: Giovani Stafford MD Creatinine [Mass/Vol] 0.8 mg/dL Normal 0.7-1.2 [facility] Comment on above: Performed By: #### C DP, BMPX, MG, SUYAPA #### [facility] [employer] [address] [place] [address] Teacher Ballet: Giovani Stafford MD GFR/1.73 sq M.predicted among non-blacks MDRD (S/P/Bld) [Vol rate/Area] mL/min/{1.73_m2} Normal >60 [facility] Comment on above: Result Comment: These results [...] #### C DP, BMPX, MG, SUYAPA #### [facility] [address] [place] [address] 59556 Teacher Ballet: Giovani Stafford MD Glucose [Mass/Vol] 146 mg/dL High 70-99 [facility] Comment on above: Performed By: #### C DP, BMPX, MG, SUYAPA #### [address] [address] Teacher Ballet: Giovani Stafford MD Potassium [Moles/Vol] 3.8 mmol/L Normal 3.7-5.3 [facility] Comment on above: Performed By: #### C DP, BMPX, MG, SUYAPA #### [facility] [employer] [address] [place] [address] 04301 Teacher Ballet: Giovani Stafford MD Sodium [Moles/Vol] 136 mmol/L Normal 135-144 [facility] Comment on above: Performed By: #### C DP, BMPX, MG, SUYAPA #### [facility] [employer] [address] [place] [address] 02518 Teacher Ballet: Giovani Stafford MD Urea nitrogen [Mass/Vol] 37 mg/dL High 8-23 [facility] Comment on above: Performed By: #### C DP, BMPX, MG, SUYAPA #### [facility] [employer] [address] [place] [address] 63827 Teacher Ballet: Giovani Stafford MD Brain Natri. Peptideon 06-26 Natriuretic peptide B (Bld) [Mass/Vol] 1263 pg/mL High 0-300 [facility] Comment on above: Result Comment: An a ge-independent cutoff point of 300 pg/ml has a 98% negative predictive value excluding acute heart failure. Performed By: #### R EJEC, LYTE, B12FOL, MG #### [facility] [employer] [address] [place] [address] 60588 Teacher Ballet: Giovani Stafford MD CBCon 06-26-2023 Erythrocyte distribution width (RBC) [Ratio] 13.2 % Normal 11.8-14.4 [facility] Comment on above: Performed By: #### C DP, BMPX, MG, SUYAPA #### [facility] [employer] [address] [place] [address] 23364 Teacher Ballet: Giovani Stafford MD Hematocrit (Bld) [Volume fraction] 21.7 % Low 40.7-50.3 [facility] Comment on above: Performed By: #### C DP, BMPX, MG, SUYAPA #### [facility] [employer] [address] [place] [address] 20296 Teacher Ballet: Giovani Stafford MD Hemoglobin (Bld) [Mass/Vol] 6.8 g/dL Critically low 13.0-17.0 [facility] Comment on above: Performed By: #### C DP, BMPX, MG, SUYAPA #### [facility] [employer] [address] [place] [address] 05722 Teacher Ballet: Giovani Stafford MD MCH (RBC) [Entitic mass] 31.9 pg Normal 25.2-33.5 [facility] Comment on above: Performed By: #### C DP, BMPX, MG, SUYAPA #### [facility] [employer] [address] [place] [address] 32500 Teacher Ballet: Giovani Stafford MD MCHC (RBC) [Mass/Vol] 31.3 g/dL Normal 28.4-34.8 [facility] Comment on above: Performed By: #### C DP, BMPX, MG, SUYAPA #### [address] [address] Teacher Ballet: Giovani Stafford MD MCV (RBC) [Entitic vol] 101.9 fL Normal 82.6-102.9 [facility] Comment on above: Performed By: #### C DP, BMPX, MG, SUYAPA #### [address] [address] Teacher Ballet: Giovani Stafford MD NRBC Automated 0.0 per 100 WBC Normal 0.0 [facility] Comment on above: Performed By: #### C DP, BMPX, MG, SUYAPA #### [address] [address] Teacher Ballet: Giovani Stafford MD Platelet mean volume (Bld) [Entitic vol] 10.6 fL Normal 8.1-13.5 [facility] Comment on above: Performed By: #### C DP, BMPX, MG, SUYAPA #### [address] [address] Teacher Ballet: Giovani Stafford MD Platelets (Bld) [#/Vol] 251 10*3/uL Normal 138-453 [facility] Comment on above: Performed By: #### C DP, BMPX, MG, SUYAPA #### [address] [address] Teacher Ballet: Giovani Stafford MD RBC (Bld) [#/Vol] 2.13 10*6/uL Low 4.21-5.77 [facility] Comment on above: Performed By: #### C DP, BMPX, MG, SUYAPA #### [address] [address] Teacher Ballet: Giovani Stafford MD WBC (Bld) [#/Vol] 18.0 10*3/uL High 3.5-11.3 [facility] Comment on above: Performed By: #### C DP, BMPX, MG, SUYAPA #### [address] [address] Teacher Ballet: Giovani Stafford MD CBC with Diffon 06-26-2023 Abs. Basophil 0.00 k/uL Normal 0.00-0.20 [facility] Comment on above: Performed By: #### R EJKYRA LYTE, B12FOL, MG #### [address] [address] Teacher Ballet: Giovani Stafford MD Abs.Imm.Granulocyte 0.20 k/uL Normal 0.00-0.30 [facility] Comment on above: Performed By: #### R EJKYRA, LYTE, B12FOL, MG #### [place] [address] Teacher Ballet: Giovani Stafford MD Abs.Neutrophil (Seg) 17.81 k/uL High 1.50-8.10 [facility] Comment on above: Performed By: #### R EJPINA RAETE, B12FOL, MG #### [place] [address] Teacher Ballet: Giovani Stafford MD Basophils/100 WBC (Bld) 0 % Normal 0-2 [facility] Comment on above: Performed By: #### R EJEC LYTE, B12FOL, MG #### [address] [address] Teacher Ballet: Giovani Stafford MD Eosinophils (Bld) [#/Vol] 0.00 10*3/uL Normal 0.00-0.44 [facility] Comment on above: Performed By: #### R EJKYRA, PINATE, B12FOL, MG #### [address] [address] Teacher Ballet: Giovani Stafford MD Eosinophils/100 WBC (Bld) 0 % Low 1-4 [facility] Comment on above: Performed By: #### R EJEC, LYTE, B12FOL, MG #### [address] [address] Teacher Ballet: Giovani Stafford MD Immature granulocytes/100 WBC (Bld) 1 % High 0 [facility] Comment on above: Performed By: #### R EJEC, LYTE, B12FOL, MG #### [address] [address] Teacher Ballet: Giovani Stafford MD Lymphocytes (Bld) [#/Vol] 0.40 10*3/uL Low 1.10-3.70 [facility] Comment on above: Performed By: #### R EJEC, LYTE, B12FOL, MG #### [address] [address] Teacher Ballet: Giovani Stafford MD Lymphocytes/100 WBC (Bld) 2 % Low 24-43 [facility] Comment on above: Performed By: #### R EJEC, LYTE, B12FOL, MG #### [address] [address] Teacher Ballet: Giovani Stafford MD Monocytes (Bld) [#/Vol] 1.39 10*3/uL High 0.10-1.20 [facility] Comment on above: Performed By: #### R EJEC, LYTE, B12FOL, MG #### [address] [address] Teacher Ballet: Giovani Stafford MD Monocytes/100 WBC (Bld) 7 % Normal 3-12 [facility] Comment on above: Performed By: #### R EJEC, LYTE, B12FOL, MG #### [address] [address] Teacher Ballet: Giovani Stafford MD Morphology Ambrose (Bld) [Interp] MACROCYTOSIS PRESENT Normal [facility] Comment on above: Result Comment: 1+ ACANTHOCYTES Performed By: #### R EJKYRA LYTE, B12FOL, MG #### [address] [address] Teacher Ballet: Giovani Stafford MD Neutrophil (Seg) 90 % High 36-65 [facility] Comment on above: Performed By: #### R EJEC, LYTE, B12FOL, MG #### [facility] [employer] [address] [place] [address] Teacher Ballet: Giovani Stafford MD Erythrocyte distribution width (RBC) [Ratio] 13.1 % Normal 11.8-14.4 [facility] Comment on above: Performed By: #### R EJKYRA LYTE, B12FOL, MG #### [facility] [employer] [address] [place] [address] Teacher Ballet: iGovani Stafford MD Hematocrit (Bld) [Volume fraction] 21.8 % Low 40.7-50.3 [facility] Comment on above: Performed By: #### R BHAVANA, LYTE, B12FOL, MG #### [facility] [employer] [facility] [place] [address] Teacher Ballet: Giovani Stafford MD Hemoglobin (Bld) [Mass/Vol] 6.5 g/dL Critically low 13.0-17.0 [facility] Comment on above: Performed By: #### R EJEC, LYTE, B12FOL, MG #### [facility] [employer] [address] [place] [address] 17618 Teacher Ballet: Giovani Stafford MD MCH (RBC) [Entitic mass] 31.1 pg Normal 25.2-33.5 [facility] Comment on above: Performed By: #### R EJEC, LYTE, B12FOL, MG #### [address] [address] Teacher Ballet: Giovani Stafford MD MCHC (RBC) [Mass/Vol] 29.8 g/dL Normal 28.4-34.8 [facility] Comment on above: Performed By: #### R EJKYRA, LYTE, B12FOL, MG #### [address] [address] Teacher Ballet: Giovani Stafford MD MCV (RBC) [Entitic vol] 104.3 fL High 82.6-102.9 [facility] Comment on above: Performed By: #### R EJEC, LYTE, B12FOL, MG #### [address] [address] Teacher Ballet: Giovani Stafford MD NRBC Automated 0.0 per 100 WBC Normal 0.0 [facility] Comment on above: Performed By: #### R EJEC, LYTE, B12FOL, MG #### [address] [address] Teacher Ballet: Giovani Stafford MD Platelet mean volume (Bld) [Entitic vol] 10.6 fL Normal 8.1-13.5 [facility] Comment on above: Performed By: #### R EJKYRA, LYTE, B12FOL, MG #### [address] [address] Teacher Ballet: Giovani Stafford MD Platelets (Bld) [#/Vol] 229 10*3/uL Normal 138-453 [facility] Comment on above: Performed By: #### R EJEC, LYTE, B12FOL, MG #### [address] [address] Teacher Ballet: Giovani Stafford MD RBC (Bld) [#/Vol] 2.09 10*6/uL Low 4.21-5.77 [facility] Comment on above: Performed By: #### R EJKYRA LYTE, B12FOL, MG #### [place] [address] Teacher Ballet: Giovani Stafford MD WBC (Bld) [#/Vol] 19.8 10*3/uL High 3.5-11.3 [facility] Comment on above: Performed By: #### R BHAVANA LYTE, B12FOL, MG #### [place] [address] Teacher Ballet: Giovani Stafford MD Abs. Basophil 0.00 k/uL Normal 0.0-0.2 [facility] Comment on above: Performed By: #### C DP, BMPX, MG, SUYAPA #### [place] [address] Teacher Ballet: Giovani Stafford MD Abs.Imm.Granulocyte 0.00 k/uL Normal 0.00-0.30 [facility] Comment on above: Performed By: #### C DP, BMPX, MG, SUYAPA #### [place] [address] Teacher Ballet: Giovani Stafford MD Abs.Neutrophil (Seg) 24.93 k/uL High 1.8-7.7 [facility] Comment on above: Performed By: #### C DP, BMPX, MG, SUYAPA #### [facility] [employer] [address] [place] [address] Teacher Ballet: Giovani Stafford MD Basophils/100 WBC (Bld) 0 % Normal 0-2 [facility] Comment on above: Performed By: #### C DP, BMPX, MG, SUYAPA #### [address] [address] Teacher Ballet: Giovani Stafford MD Eosinophils (Bld) [#/Vol] 0.00 10*3/uL Normal 0.0-0.4 [facility] Comment on above: Performed By: #### C DP, BMPX, MG, SUYAPA #### [facility] [address] [place] [address] Teacher Ballet: Giovani Stafford MD Eosinophils/100 WBC (Bld) 0 % Low 1-4 [facility] Comment on above: Performed By: #### C DP, BMPX, MG, SUYAPA #### [facility] [address] [place] [address] Teacher Ballet: Giovani Stafford MD Immature granulocytes/100 WBC (Bld) 0 % Normal 0 [facility] Comment on above: Performed By: #### C DP, BMPX, MG, SUYAPA #### [address] [address] Teacher Ballet: Giovani Stafford MD Lymphocytes (Bld) [#/Vol] 0.80 10*3/uL Low 1.0-4.8 [facility] Comment on above: Performed By: #### C DP, BMPX, MG, SUYAPA #### [address] [address] Teacher Ballet: Giovani Stafford MD Lymphocytes/100 WBC (Bld) 3 % Low 24-44 [facility] Comment on above: Performed By: #### C DP, BMPX, MG, SUYAPA #### [address] [address] Teacher Ballet: Giovani Stafford MD Monocytes (Bld) [#/Vol] 1.07 10*3/uL High 0.1-0.8 [facility] Comment on above: Performed By: #### C DP, BMPX, MG, SUYAPA #### [facility] [address] [place] [address] Teacher Ballet: Giovani Stafford MD Monocytes/100 WBC (Bld) 4 % Normal 1-7 [facility] Comment on above: Performed By: #### C DP, BMPX, MG, SUYAPA #### [address] [address] Teacher Ballet: Giovani Stafford MD Morphology Ambrose (Bld) [Interp] Normal Normal [facility] Comment on above: Performed By: #### C DP, BMPX, MG, SUYAPA #### [place] [address] Teacher Ballet: Giovani Stafford MD Neutrophil (Seg) 93 % High 36-66 [facility] Comment on above: Performed By: #### C DP, BMPX, MG, SUYAPA #### [place] [address] Teacher Ballet: Giovani Stafford MD Erythrocyte distribution width (RBC) [Ratio] 13.3 % Normal 11.8-14.4 [facility] Comment on above: Performed By: #### C DP, BMPX, MG, SUYAPA #### [place] [address] Teacher Ballet: Giovani Stafford MD Hematocrit (Bld) [Volume fraction] 29.4 % Low 40.7-50.3 [facility] Comment on above: Performed By: #### C DP, BMPX, MG, SUYAPA #### [place] [address] Teacher Ballet: Giovani Stafford MD Hemoglobin (Bld) [Mass/Vol] 9.3 g/dL Low 13.0-17.0 [facility] Comment on above: Performed By: #### C DP, BMPX, MG, SUYAPA #### [address] [address] Teacher Ballet: Giovani Stafford MD MCH (RBC) [Entitic mass] 31.8 pg Normal 25.2-33.5 [facility] Comment on above: Performed By: #### C DP, BMPX, MG, SUYAPA #### [address] [address] Teacher Ballet: Giovani Stafford MD MCHC (RBC) [Mass/Vol] 31.6 g/dL Normal 28.4-34.8 [facility] Comment on above: Performed By: #### C DP, BMPX, MG, SUYAPA #### [place] [address] Teacher Ballet: Giovani Stafford MD MCV (RBC) [Entitic vol] 100.7 fL Normal 82.6-102.9 [facility] Comment on above: Performed By: #### C DP, BMPX, MG, SUYAPA #### [address] [address] Teacher Ballet: Giovani Stafford MD NRBC Automated 0.0 per 100 WBC Normal 0.0 [facility] Comment on above: Performed By: #### C DP, BMPX, MG, SUYAPA #### [place] [address] Teacher Ballet: Giovani Stafford MD Platelet mean volume (Bld) [Entitic vol] 10.7 fL Normal 8.1-13.5 [facility] Comment on above: Performed By: #### C DP, BMPX, MG, SUYAPA #### [place] [address] Teacher Ballet: Giovani Stafford MD Platelets (Bld) [#/Vol] 345 10*3/uL Normal 138-453 [facility] Comment on above: Performed By: #### C DP, BMPX, MG, SUYAPA #### [address] [address] Teacher Ballet: Giovani Stafford MD RBC (Bld) [#/Vol] 2.92 10*6/uL Low 4.21-5.77 [facility] Comment on above: Performed By: #### C DP, BMPX, MG, SUYAPA #### [facility] [employer] [address] [place] [address] Teacher Ballet: Giovani Stafford MD WBC (Bld) [#/Vol] 26.8 10*3/uL High 3.5-11.3 [facility] Comment on above: Performed By: #### C DP, BMPX, MG, SUYAPA #### [facility] [employer] [address] [place] [address] Teacher Ballet: Giovani Stafford MD Calcium, [employer]icon 06-26-2023 Calcium [Moles/Vol] 1.39 mmol/L High 1.13-1.33 [facility] Comment on above: Performed By: #### C DP, BMPX, MG, SUYAPA #### [facility] [employer] [address] [place] [address] Teacher Ballet: Giovani Stafford MD Calcium [Moles/Vol] 1.07 mmol/L Low 1.13-1.33 [facility] Comment on above: Performed By: #### C DP, BMPX, MG, SUYAPA #### [facility] [address] [place] [address] Teacher Ballet: Giovani Stafford MD Comp Metabolic Pr/rfx MGon 0 06-26-2023 Potassium [Moles/Vol] 3.0 mmol/L Low 3.7-5.3 [facility] Comment on above: Performed By: #### C DP, BMPX, MG, SUYAPA #### [facility] [employer] [address] [place] [address] Teacher Ballet: Giovani Stafford MD Albumin [Mass/Vol] 2.5 g/dL Low 3.5-5.2 [facility] Comment on above: Performed By: #### C DP, BMPX, MG, SUYAPA #### [employer] [address] Teacher Ballet: Giovani Stafford MD Albumin/Glob Ratio 1.3 Normal 1.0-2.5 [facility] Comment on above: Performed By: #### C DP, BMPX, MG, SUYAPA #### [address] [address] Teacher Ballet: Giovani Stafford MD Alkaline Phos 61 U/L Normal 40-129 [facility] Comment on above: Performed By: #### C DP, BMPX, MG, SUYAPA #### [address] [address] Teacher Ballet: Giovani Stafford MD ALT [Catalytic activity/Vol] 7 U/L Normal 5-41 [facility] Comment on above: Performed By: #### C DP, BMPX, MG, SUYAPA #### [address] [address] Teacher Ballet: Giovani Stafford MD Anion gap [Moles/Vol] 10 mmol/L Normal 9-17 [facility] Comment on above: Performed By: #### C DP, BMPX, MG, SUYAPA #### [address] [address] Teacher Ballet: Giovani Stafford MD AST [Catalytic activity/Vol] 9 U/L Normal <40 [facility] Comment on above: Performed By: #### C DP, BMPX, MG, SUYAPA #### [address] [address] Teacher Ballet: Giovani Stafford MD Bilirubin [Mass/Vol] 0.4 mg/dL Normal 0.3-1.2 [facility] Comment on above: Performed By: #### C DP, BMPX, MG, SUYAPA #### [facility] [employer] [address] [place] [address] Teacher Ballet: Giovani Stafford MD Calcium [Mass/Vol] 6.6 mg/dL Low 8.6-10.4 [facility] Comment on above: Performed By: #### C DP, BMPX, MG, SUYAPA #### [facility] [employer] [address] [place] [address] Teacher Ballet: Giovani Stafford MD Chloride [Moles/Vol] 108 mmol/L High 98-107 [facility] Comment on above: Performed By: #### C DP, BMPX, MG, SUYAPA #### [facility] [employer] [address] [place] [address] Teacher Ballet: Giovani Stafford MD CO2 [Moles/Vol] 24 mmol/L Normal 20-31 [facility] Comment on above: Performed By: #### C DP, BMPX, MG, SUYAPA #### [address] [address] Teacher Ballet: Giovani Stafford MD Creatinine [Mass/Vol] 0.5 mg/dL Low 0.7-1.2 [facility] Comment on above: Performed By: #### C DP, BMPX, MG, SUYAPA #### [place] [address] Teacher Ballet: Giovani Stafford MD GFR/1.73 sq M.predicted among non-blacks MDRD (S/P/Bld) [Vol rate/Area] mL/min/{1.73_m2} Normal >60 [facility] Comment on above: Result Comment: These results [...] #### C DP, BMPX, MG, SUYAPA #### [facility] [employer] [address] [place] [address] Teacher Ballet: Giovani Stafford MD Glucose [Mass/Vol] 127 mg/dL High 70-99 [facility] Comment on above: Performed By: #### C DP, BMPX, MG, SUYAPA #### [facility] [address] [place] [address] Teacher Ballet: Giovani Stafford MD Protein [Mass/Vol] 4.5 g/dL Low 6.4-8.3 [facility] Comment on above: Performed By: #### C DP, BMPX, MG, SUYAPA #### [facility] [address] [place] [address] Teacher Ballet: Giovani Stafford MD Sodium [Moles/Vol] 142 mmol/L Normal 135-144 [facility] Comment on above: Performed By: #### C DP, BMPX, MG, SUYAPA #### [facility] [address] [place] [address] Teacher Ballet: Giovani Stafford MD Urea nitrogen [Mass/Vol] 36 mg/dL High 8-23 [facility] Comment on above: Performed By: #### C DP, BMPX, MG, SUYAPA #### [facility] [address] [place] [address] Teacher Ballet: Giovani Stafford MD Electrolyteson 06-26-2023 Anion gap [Moles/Vol] 12 mmol/L Normal 9-17 [facility] Comment on above: Performed By: #### R EJEC, LYTE, B12FOL, MG #### [facility] [address] [place] [address] Teacher Ballet: Giovani Stafford MD Chloride [Moles/Vol] 101 mmol/L Normal 98-107 [facility] Comment on above: Performed By: #### R EJEC, LYTE, B12FOL, MG #### [facility] [address] [place] [address] [id number] Teacher Ballet: Giovani Stfaford MD CO2 [Moles/Vol] 27 mmol/L Normal 20-31 [facility] Comment on above: Performed By: #### R EJEC, LYTE, B12FOL, MG #### [facility] [address] [place] [address] Teacher Ballet: Giovani Stafford MD Potassium [Moles/Vol] 3.4 mmol/L Low 3.7-5.3 [facility] Comment on above: Performed By: #### R EJEC, LYTE, B12FOL, MG #### [facility] [address] [place] [address] Teacher Ballet: Giovani Stafford MD Sodium [Moles/Vol] 140 mmol/L Normal 135-144 [facility] Comment on above: Performed By: #### R EJEC LYTE, B12FOL, MG #### [facility] [address] [place] [address] Teacher Ballet: Giovani Stafford MD Ferritinon 06-26-2023 Ferritin [Mass/Vol] 159 ng/mL Normal 30-400 [facility] Comment on above: Performed By: #### R EJEC, LYTE, B12FOL, MG #### [facility] [address] [place] [address] Teacher Ballet: Giovani Stafford MD Glucose,Whole Bloodon 2023 Glucose [Mass/Vol] 144 mg/dL High 75-110 [facility] Glucose [Mass/Vol] 150 mg/dL High 75-110 [facility] Hgb/Hcton 06-26-2023 Hematocrit (Bld) [Volume fraction] 34.5 % Low 40.7-50.3 [facility] Comment on above: Performed By: #### C DP, BMPX, MG, SUYAPA #### [facility] [address] [place] [address] 9[address]34 Teacher Ballet: Giovani Stafford MD Hemoglobin (Bld) [Mass/Vol] 10.9 g/dL Low 13.0-17.0 [facility] Comment on above: Performed By: #### C DP, BMPX, MG, SUYAPA #### [address] [address] Teacher Ballet: Giovani Stafford MD Iron Binding Cap.on 06-26-19 24 % Fe Saturation 33 % Normal 20-55 [facility] Comment on above: Performed By: #### R EJEC, LYTE, B12FOL, MG #### [address] [address] Teacher Ballet: Giovani Stafford MD Iron [Mass/Vol] 30 ug/dL Low 59-158 [facility] Comment on above: Performed By: #### R EJEC, LYTE, B12FOL, MG #### [facility] [employer] [address] [place] [address] 28721 Teacher Ballet: Giovani Stafford MD Total Fe Binding Cap 90 ug/dL Low 250-450 [facility] Comment on above: Performed By: #### R EJEC, LYTE, B12FOL, MG #### [facility] [employer] [address] [place] [address] 69684 Teacher Ballet: Giovani Stafford MD Unbound Fe Bind Cap 60 ug/dL Low 112-347 [facility] Comment on above: Performed By: #### R EJEC, LYTE, B12FOL, MG #### [facility] [employer] [address] [place] [address]706 Teacher Ballet: Giovani Stafford MD K (Potassium)on 06-26-2023 Potassium [Moles/Vol] 3.9 mmol/L Normal 3.7-5.3 [facility] Comment on above: Performed By: #### C DP, BMPX, MG, SUYAPA #### [facility] [employer] [address] [place] [address] 27161 Teacher Ballet: Giovani Stafford MD Lactic Acidon 06-26-2023 Lactic Acid,Whole Bl 2.2 mmol/L High 0.7-2.1 [facility] Comment on above: Performed By: #### C DP, BMPX, MG, SUYAPA #### [facility] [address] [place] [address] 9[address]00 Teacher Ballet: Giovani Stafford MD Lactic Acid,Whole Bl 1.7 mmol/L Normal 0.7-2.1 [facility] Comment on above: Performed By: #### R EJEC, LYTE, B12FOL, MG #### [facility] [address] [place] [address] 0[address] Teacher Ballet: Giovani Stafford MD Lactic Acid,Whole Bl 2.3 mmol/L High 0.7-2.1 [facility] Comment on above: Performed By: #### C DP, BMPX, MG, SUYAPA #### [facility] [address] [place] [address] 17396 Teacher Ballet: Giovani Stafford MD Lactic Acid,Whole Bl 4.3 mmol/L High 0.7-2.1 [facility] Comment on above: Performed By: #### C DP, BMPX, MG, SUYAPA #### [facility] [address] [place] [address] 23510 Teacher Ballet: Giovani Stafford MD MRSA, DNA, Nasalon MRSA, DNA, Nasal Negative Normal NEG [facility] Comment on above: Result Comment: [...] DP, BMPX, MG, SUYAPA #### [facility] [address] [place] [address] 51386 Teacher Ballet: Giovani Stafford MD Specimen Description .NASAL SWAB Normal [facility] Comment on above: Performed By: #### C DP, BMPX, MG, SUYAPA #### [facility] [address] [place] [address] 76997 Teacher Ballet: Giovani Stafford MD Magnesiumon 7 Magnesium [Mass/Vol] 2.0 mg/dL Normal 1.6-2.6 [facility] Comment on above: Performed By: #### R EJPINA RAETE, B12FOL, MG #### [facility] [address] [place] [address] 06966 Teacher Ballet: Giovani Stafford MD Magnesium [Mass/Vol] 1.5 mg/dL Low 1.6-2.4 [facility] Comment on above: Performed By: #### R PATRICKECPINATE, B12FOL, MG #### [facility] [address] [place] [address]225[address] Teacher Ballet: Giovani Stafford MD Magnesium [Mass/Vol] 1.4 mg/dL Low 1.6-2.6 [facility] Comment on above: Performed By: #### C DP, BMPX, MG, SUYAPA #### [facility] [address] [place] [address] 21563 Teacher Ballet: Giovani Stafford MD Magnesium [Mass/Vol] 1.7 mg/dL Normal 1.6-2.6 [facility] Comment on above: Performed By: #### C DP, BMPX, MG, SUYAPA #### [facility] [address] [place] [address]23 Teacher Ballet: Giovani Stafford MD Open Heart Panelon 4 Feliciano Test INFORMATION NOT PROVIDED [facility] Comment on above: Performed By: #### C DP, BMPX, MG, SUYAPA #### [facility] [address] [place] [address] 84962 Teacher Ballet: Giovani Stafford MD Body Temp. 37.0 Normal [facility] Comment on above: Performed By: #### C DP, BMPX, MG, SUYAPA #### [address] [address] Teacher Ballet: Giovani Stafford MD Carboxy Hgb 1.2 % Normal 0-5 [facility] Comment on above: Result Comment: Reference Range: Non-Smokers 0-2% Average Smoker 2-4% Heavy Smoker <10% Performed By: #### C DP, BMPX, MG, SUYAPA #### [address] [address] Teacher Ballet: Giovani Stafford MD Chloride [Moles/Vol] 106 mmol/L Normal 98-110 [facility] Comment on above: Performed By: #### C DP, BMPX, MG, SUYAPA #### [address] [address] Teacher Ballet: Giovani Stafford MD FIO2 60% Normal [facility] Comment on above: Performed By: #### C DP, BMPX, MG, SUYAPA #### [address] [address] Teacher Ballet: Giovani Stafford MD Glucose [Mass/Vol] 216 mg/dL High 75-110 [facility] Comment on above: Performed By: #### C DP, BMPX, MG, SUYAPA #### [facility] [employer] [address] [place] [address] 14[address] Teacher Ballet: Giovani Stafford MD HCO3 (Bld) [Moles/Vol] 24.0 mmol/L Normal 22-27 [facility] Comment on above: Performed By: #### C DP, BMPX, MG, SUYAPA #### [facility] [employer] [address] [place] [address] 42115 Teacher Ballet: Giovani Stafford MD Hematocrit (Bld) [Volume fraction] 32.1 % Low 40.7-50.3 [facility] Comment on above: Performed By: #### C DP, BMPX, MG, SUYAPA #### [address] [address] Teacher Ballet: Giovani Stafford MD Hemoglobin (Bld) [Mass/Vol] 10.4 g/dL Low 13.0-17.0 [facility] Comment on above: Performed By: #### C DP, BMPX, MG, SUYAPA #### [facility] [employer] [address] [place] [address] 41293 Teacher Ballet: Giovani Stafford MD Negative Base Excess 0.9 mmol/L Normal 0.0-2.0 [facility] Comment on above: Performed By: #### C DP, BMPX, MG, SUYAPA #### [address] [address] Teacher Ballet: Giovani Stafford MD Oxygen (Bld) [Partial pressure] 116.0 mm[Hg] High 75-95 [facility] Comment on above: Performed By: #### C DP, BMPX, MG, SUYAPA #### [address] [address] Teacher Ballet: Giovani Stafford MD Oxygen saturation in Blood 98.4 % Normal 94-100 [facility] Comment on above: Performed By: #### C DP, BMPX, MG, SUYAPA #### [facility] [employer] [address] [place] [address] Teacher Ballet: Giovani Stafford MD pCO2 43.5 mmHg Normal 32-45 [facility] Comment on above: Performed By: #### C DP, BMPX, MG, SUYAPA #### [facility] [employer] [address] [place] [address]2362 Teacher Ballet: Giovani Stafford MD pH (Bld) 7.360 [pH] Normal 7.350-7.450 [facility] Comment on above: Performed By: #### C DP, BMPX, MG, SUYAPA #### [facility] [address] [place] [address] Teacher Ballet: Giovani Stafford MD Potassium [Moles/Vol] 3.6 mmol/L Normal 3.6-5.0 [facility] Comment on above: Performed By: #### C DP, BMPX, MG, SUYAPA #### [facility] [address] [place] [address] Teacher Ballet: Giovani Stafford MD Sodium [Moles/Vol] 136 mmol/L Normal 136-145 [facility] Comment on above: Performed By: #### C DP, BMPX, MG, SUYAPA #### [facility] [address] [place] [address] Teacher Ballet: Giovani Stafford MD PTon 06-26-2023 INR Coag (PPP) [Relative time] 1.4 {INR} Normal [facility] Comment on above: Result Comment: Therapeutic Range: Moderate Anticoagulant Intensity: INR = 2.0-3.0 High Anticoagulant Intensity: INR = 2.5-3.5 Performed By: #### C DP, BMPX, MG, SUYAPA #### [facility] [address] [place] [address] Teacher Ballet: Giovani Stafford MD PT Coag (PPP) [Time] 16.6 s High 11.7-14.9 [facility] Comment on above: Performed By: #### C DP, BMPX, MG, SUYAPA #### [facility] [address] [place] [address] Teacher Ballet: Giovani Stafford MD Phosphorus, Inorg.on 024 Phosphorus, Inorg. 2.1 mg/dL Low 2.5-4.5 [facility] Comment on above: Performed By: #### R EJEC, LYTE, B12FOL, MG #### [address] [address] Teacher Ballet: Giovani Stafford MD Phosphorus, Inorg. 3.5 mg/dL Normal 2.5-4.5 [facility] Comment on above: Performed By: #### C DP, BMPX, MG, SUYAPA #### [address] [address] Teacher Ballet: Giovani Stafford MD Resp Viral Panelon 4 Adenovirus Not detected Normal [facility] Comment on above: Performed By: #### R CLINICAL TRIAL SPECIALIST #### [address] [address] Teacher Ballet: MD Ena Whalent.parapertussis Not detected Normal [facility] Comment on above: Performed By: #### R CLINICAL TRIAL SPECIALIST #### [address] [address] Teacher Ballet: Giovani Stafford MD Bordetella pertussis Not detected Normal [facility] Comment on above: Performed By: #### R CLINICAL TRIAL SPECIALIST #### [address] [address] Teacher Ballet: Giovani Stafford MD Chlamyd.pneumoniae Not detected Normal [facility] Comment on above: Performed By: #### R CLINICAL TRIAL SPECIALIST #### [address] [address] Teacher Ballet: Giovani Stafford MD Coronavirus 229E Not detected Normal [facility] Comment on above: Performed By: #### R CLINICAL TRIAL SPECIALIST #### [address] [address] Teacher Ballet: Giovani Stafford MD Coronavirus HKU1 Not detected Normal [facility] Comment on above: Performed By: #### R CLINICAL TRIAL SPECIALIST #### [facility] [address] Teacher Ballet: Giovani Stafford MD Coronavirus NL63 Not detected Normal [facility] Comment on above: Performed By: #### R CLINICAL TRIAL SPECIALIST #### [address] [address] Teacher Ballet: Giovani Stafford MD Coronavirus OC43 Not detected Normal [facility] Comment on above: Performed By: #### R CLINICAL TRIAL SPECIALIST #### [address] [address] Teacher Ballet: Giovani Stafford MD Human Metapneumo Not detected [facility] Comment on above: Performed By: #### R CLINICAL TRIAL SPECIALIST #### [address] [address] Teacher Ballet: Giovani Stafford MD Influenza A Not detected Normal [facility] Comment on above: Performed By: #### R CLINICAL TRIAL SPECIALIST #### [address] [address] Teacher Ballet: Giovani Stafford MD Influenza B Not detected [facility] Comment on above: Performed By: #### R CLINICAL TRIAL SPECIALIST #### [address] [address] Teacher Ballet: Giovani Stafford MD Mycoplas.pneumoniae Not detected Normal [facility] Comment on above: Result Comment: Perf ormed by multiplexed nucleic acid assay. Performed By: #### R CLINICAL TRIAL SPECIALIST #### [address] [address] Teacher Ballet: Giovani Stafford MD Parainfluenza 1 Not detected Normal [facility] Comment on above: Performed By: #### R CLINICAL TRIAL SPECIALIST #### [address] [address] Teacher Ballet: Giovani Stafford MD Parainfluenza 2 Not detected Normal [facility] Comment on above: Performed By: #### R CLINICAL TRIAL SPECIALIST #### [address] [address] Teacher Ballet: Giovani Stafford MD Parainfluenza 3 Not detected Normal [facility] Comment on above: Performed By: #### R CLINICAL TRIAL SPECIALIST #### [address] [address] Teacher Ballet: Giovani Stafford MD Parainfluenza 4 Not detected [facility] Comment on above: Performed By: #### R CLINICAL TRIAL SPECIALIST #### [address] [address] Teacher Ballet: Giovani Stafford MD Resp Syncytial Virus Not detected Normal [facility] Comment on above: Performed By: #### R CLINICAL TRIAL SPECIALIST #### [address] [address] Teacher Ballet: Giovani Stafford MD Rhino/Enterovirus Detected Abnormal [facility] Comment on above: Performed By: #### R CLINICAL TRIAL SPECIALIST #### [address] [address] Teacher Ballet: Giovani Stafford MD SARS-CoV-2 (COVID-19) RNA JEFF+probe Ql (Unsp spec) Not detected Normal [facility] Comment on above: Performed By: #### R CLINICAL TRIAL SPECIALIST #### [address] [address] Teacher Ballet: Giovani Stafford MD Source: .NASOPHARYNGEAL SWAB Normal [facility] Comment on above: Performed By: #### R CLINICAL TRIAL SPECIALIST #### [address] [address] Teacher Ballet: Giovani Stafford MD Specimen Rejectionon 024 Reason for rejection Unable to perform testing: Results suspect due to history of previous lab Normal [facility] Comment on above: Result Comment: resu lts. Performed By: #### R EJEC, LYTE, B12FOL, MG #### [facility] [employer] [address] [place] [address] Teacher Ballet: Giovani Stafford MD Source of sample .BLOOD Normal [facility] Comment on above: Performed By: #### R EJEC, LYTE, B12FOL, MG #### [facility] [employer] [address] [place] [address] Teacher Ballet: Giovani Stafford MD Test ordered HH [facility] Comment on above: Performed By: #### R EJEC, LYTE, B12FOL, MG #### [facility] [employer] [address] [place] [address] Teacher Ballet: Giovani Stafford MD Transferrinon 06-26-2023 Transferrin [Mass/Vol] 92 mg/dL Low 200-360 [facility] Comment on above: Performed By: #### R EJEC, LYTE, B12FOL, MG #### [facility] [address] [place] [address] Teacher Ballet: Giovani Stafford MD Troponinon 06-26-2023 Troponin, High Sens 28 ng/L High 0-22 [facility] Comment on above: Result Comment: High Sensitivity Troponin values cannot be compared with other Troponin methodologies. Performed By: #### R EJEC, LYTE, B12FOL, MG #### [facility] [employer] [address] [place] [address] Teacher Ballet: Giovani Stafford MD Troponin, High Sens 26 ng/L High 0-22 [facility] Comment on above: Result Comment: High Sensitivity Troponin values cannot be compared with other Troponin methodologies. Performed By: #### C DP, BMPX, MG, SUYAPA #### [employer] [address] [place] [address] Teacher Ballet: Giovani Stafford MD Troponin, High Sens 31 ng/L High 0-22 [facility] Comment on above: Result Comment: High Sensitivity Troponin values cannot be compared with other Troponin methodologies. Performed By: #### C DP, BMPX, MG, SUYAPA #### [facility] [employer] [address] [place] [address] [phone] Teacher Ballet: Giovani Stafford MD Type + Screenon 06-26-2023 Type + Screen Sample Expiration 06/29/2023,2359 Arm Band Number [id number] ABO/Rh(D) B POSITIVE Antibody Screen NEGATIVE Unit Number [id number] Blood Component Type Leukocyte Reduced Red Cell Unit Division 00 Status of Unit TRANSFUSED Transfusion Status OK TO TRANSFUSE Crossmatch Result COMPATIBLE Unit Number [id number] Blood Component Type Leukocyte Reduced Red Cell Unit Division 00 Status of Unit REL FROM ALLOC Transfusion Status OK TO TRANSFUSE Crossmatch Result COMPATIBLE Unit Number [id number] Blood Component Type Leukocyte Reduced Red Cell Unit Division 00 Status of Unit REL FROM ALLOC Transfusion Status OK TO TRANSFUSE Crossmatch Result COMPATIBLE Normal [facility] Comment on above: Performed By: #### C DP, BMPX, MG, SUYAPA #### [facility] [employer] [address] [place] [address] Teacher Ballet: Giovani Stafford MD UA w/Reflex Cultureon 2023 Bilirubin, SemiQt,Ur Negative Normal NEG [facility] Comment on above: Performed By: #### C DP, BMPX, MG, SUYAPA #### [facility] [employer] [address] [place] [address] Teacher Ballet: Giovani Stafford MD Blood, Urine Negative Normal NEG [facility] Comment on above: Performed By: #### C DP, BMPX, MG, SUYAPA #### [facility] [employer] [address] [place] [address] 8[address] Teacher Ballet: Giovani Stafford MD Clarity (U) Clear Normal CLEAR [facility] Comment on above: Performed By: #### C DP, BMPX, MG, SUYAPA #### [facility] [address] [place] [address] Teacher Ballet: Giovani Stafford MD Color (U) Yellow Normal YEL [facility] Comment on above: Performed By: #### C DP, BMPX, MG, SUYAPA #### [facility] [address] [place] [address] Teacher Ballet: Giovani Stafford MD Glucose Ql (U) Negative Normal NEG [facility] Comment on above: Performed By: #### C DP, BMPX, MG, SUYAPA #### [facility] [address] [place] [address] Teacher Ballet: Giovani Stafford MD Ketones Ql (U) SMALL Abnormal NEG [facility] Comment on above: Performed By: #### C DP, BMPX, MG, SUYAPA #### [facility] [address] [address] Teacher Ballet: Giovani Stafford MD Leukocyte esterase Test strip Ql (U) Negative Normal NEG [facility] Comment on above: Performed By: #### C DP, BMPX, MG, SUYAPA #### [address] [address] Teacher Ballet: Giovani Stafford MD Nitrite,Ur Negative Normal NEG [facility] Comment on above: Performed By: #### C DP, BMPX, MG, SUYAPA #### [facility] [address] [place] [address] Teacher Ballet: Giovani Stafford MD PH,Ur 8.0 Normal 5.0-8.0 [facility] Comment on above: Performed By: #### C DP, BMPX, MG, SUYAPA #### [facility] [address] [place] [address] Teacher Ballet: Giovani Stafford MD Protein Ql (U) 1+ mg/dL Abnormal NEG [facility] Comment on above: Performed By: #### C DP, BMPX, MG, SUYAPA #### [address] [address] Teacher Ballet: Giovani Stafford MD Spec. [place],Ur 1.026 Normal 1.005-1.030 [facility] Comment on above: Performed By: #### C DP, BMPX, MG, SUYAPA #### [address] [address] Teacher Ballet: Giovani Stafford MD Urobilinogen,Ur Normal Normal 0.0-1.0 [facility] Comment on above: Performed By: #### C DP, BMPX, MG, SUYAPA #### [address] [address] Teacher Ballet: Giovani Stafford MD Urinalysis,Microon 4 Bacteria None Normal NONE [facility] Comment on above: Performed By: #### C DP, BMPX, MG, SUYAPA #### [address] [address] Teacher Ballet: Giovani Stafford MD Casts 5 TO 10 HYALINE Normal 0-8 [facility] Comment on above: Result Comment: Refe rence range defined for non-centrifuged specimen. Performed By: #### C DP, BMPX, MG, SUYAPA #### [address] [address] Teacher Ballet: Giovani Stafford MD Epithelial cells LM Ql (Urine sed) 2 TO 5 Normal 0-5 [facility] Comment on above: Performed By: #### C DP, BMPX, MG, SUYAPA #### [address] [address] Teacher Ballet: Giovani Stafford MD Urine RBC's None Normal 0-4 [facility] Comment on above: Result Comment: Refe rence range defined for non-centrifuged specimen. Performed By: #### C DP, BMPX, MG, SUYAPA #### [facility] [address] [place], [place] [id number] Teacher Ballet: Giovani Stafford MD Urine WBC's 0 TO 2 Normal 0-5 [facility] Comment on above: Performed By: #### C DP, BMPX, MG, SUYAPA #### [facility] [address] [place] [address] Teacher Ballet: Giovani Stafford MD Vitamin D 25 OHon 06-26-2023 Vitamin D 25 OH 15.2 ng/mL Low >29.9 [facility] Comment on above: Result Comment: Reference Range: Vitamin D status Range Deficiency <20 ng/mL Mild Deficiency 20-30 ng/mL Sufficiency 30-100 ng/mL Toxicity >100 ng/mL Performed By: #### R EJEC, LYTE, B12FOL, MG #### [facility] [address] [place], [place] 1963008 Teacher Ballet: Giovani Stafford MD Albumin Levelon 01-25-2022 Albumin [Mass/Vol] 2.6 g/dL Low 3.2-5.5 [facility] Comment on above: Order Comment: Diagn osis: I48.0, E11.9, I10 Comment: [id number], LORENA, RM113, , 01/19/22 Result Comment: PERF ORMED BY: [place] [id number] PATHOLOGIST WEBSPHERE DEVELOPER NICHOLE BOLDEN M.D. Performed By: #### D DIMER, BMP, BNP, HS TROP, CKMB, CK, CBC, PTT, PT #### [facility] [address] [place] [address] [facility] Albumin [Mass/volume] in Ser um or PlasmaOrdered By: Minh Kim on 01-25-2022 Albumin [Mass/Vol] 2.6 g/dL 3.2-5.5 [facility] Basic Metabolic Panelon 01-07 Anion gap [Moles/Vol] 12.5 mmol/L Normal 6.0-15.[address] [facility] Comment on above: Order Comment: Diagn osis: I48.0, E11.9, I10 Comment: [id number], LORENA, [facility], , 01/19/22 Performed By: #### D DIMER, BMP, BNP, HS TROP, CKMB, CK, CBC, PTT, PT #### [facility] [address] Calcium [Mass/Vol] 8.6 mg/dL Normal 8.2-10.2 [facility] Comment on above: Order Comment: Diagn osis: I48.0, E11., I10 Comment: [id number], LORENA, [facility], , 01/19/22 Performed By: #### D DIMER, BMP, BNP, HS TROP, CKMB, CK, CBC, PTT, PT #### [facility] [address] Chloride [Moles/Vol] 90 mmol/L Low 95-114 [facility] Comment on above: Order Comment: Diagn osis: I48.0, E11., I10 Comment: [id number], LORENA [facility], , 01/19/22 Performed By: #### D DIMER, BMP, BNP, HS TROP, CKMB, CK, CBC, PTT, PT #### [facility] [address] [place] [id number] [facility] CO2 [Moles/Vol] 30.8 mmol/L High 22.0-30.0 [facility] Comment on above: Order Comment: Diagn osis: I48.0, E11.9, I10 Comment: [id number], LORENA, [facility], , 01/19/22 Performed By: #### D DIMER, BMP, BNP, HS TROP, CKMB, CK, CBC, PTT, PT #### [facility] [address] [place] [phone] [facility] Creatinine [Mass/Vol] 0.52 mg/dL Low 0.64-1.27 [facility] Comment on above: Order Comment: Diagn osis: I48.0, E11.9, I10 Comment: [id number], LORENA, RM113, , 01/19/22 Performed By: #### D DIMER, BMP, BNP, HS TROP, CKMB, CK, CBC, PTT, PT #### [facility] [address] [place] [phone] [facility] Estimated GFR ( Uzma > 60 [facility] Comment on above: Order Comment: Diagn osis: I48.0, E11.9, I10 Comment: [id number], LORENA, RM113, , 01/19/22 Result Comment: GFR estimated reference range: According to KDOQI guidelines, <60 ml/min/1.73m2 is sufficient to diagnose a patient with chronic kidney disease. Performed By: #### D DIMER, BMP, BNP, HS TROP, CKMB, CK, CBC, PTT, PT #### [address] Estimated GFR (Non- Am > 60 [facility] Comment on above: Order Comment: Diagn osis: I48.0, E11.9, I10 Comment: [id number], LORENA, RM113, , 01/19/22 Performed By: #### D DIMER, BMP, BNP, HS TROP, CKMB, CK, CBC, PTT, PT #### [address] Glucose [Mass/Vol] 118 mg/dL High 70-100 [facility] Administration Comment on above: Order Comment: Diagn osis: I48.0, E11.9, I10 Comment: [id number], LORENA, RM113, , 01/19/22 Result Comment: [place] Glucose Reference Range is dependent on time and content of last meal. Glucose of more than 200 mg/dL in a nonstressed, ambulatory subject supports the diagnosis of Diabetes Mellitus. ADA recommended reference range Performed By: #### D DIMER, BMP, BNP, HS TROP, CKMB, CK, CBC, PTT, PT #### [address] Potassium [Moles/Vol] 4.3 mmol/L Normal 3.5-5.1 [facility] Comment on above: Order Comment: Diagn osis: I48.0, E11.9, I10 Comment: [id number], OGSOBEIDAZ, RM113, , 01/19/22 Performed By: #### D DIMER, BMP, BNP, HS TROP, CKMB, CK, CBC, PTT, PT #### [facility] [address] Sodium [Moles/Vol] 129 mmol/L Low 136-146 [facility] Comment on above: Order Comment: Diagn osis: I48.0, E11.9, I10 Comment: [id number], OGONTZ, RM113, , 01/19/22 Performed By: #### D DIMER, BMP, BNP, HS TROP, CKMB, CK, CBC, PTT, PT #### [address] Urea nitrogen [Mass/Vol] 11 mg/dL Normal 9-23 [facility] Comment on above: Order Comment: Diagn osis: I48.0, E11.9, I10 Comment: [id number], OGONTZ, RM113, , 01/19/22 Performed By: #### D DIMER, BMP, BNP, HS TROP, CKMB, CK, CBC, PTT, PT #### [facility] [address] [place] [address] Basophils Auto (Bld) [#/Vol] Ordered By: Minh Kim on 01-25-2022 Basophils (Bld) [#/Vol] 0.1 10*3/uL 0.0-0.2 [facility] Basophils/100 WBC Auto (Bld) Ordered By: Minh Kim on 01-25-2022 Basophils/100 WBC (Bld) 0.7 % . [facility] Blood hemoglobin measurement (mass/volume)Ordered By: Minh Kim on 01-25-2022 Hemoglobin (Bld) [Mass/Vol] 11.4 g/dL 13.0-17.0 [facility] Blood leukocytes automated c ount (number/volume)Ordered By: Minh Kim on 01-25-2022 WBC (Bld) [#/Vol] 8.2 10*3/uL 4.5-11.0 [facility] Complete Blood Count Auto Di ffon 01-25-2022 Basophils (Bld) [#/Vol] 0.1 10*3/uL Normal 0.0-0.2 [facility] Comment on above: Order Comment: Diagn osis: I48.0, E11.9, I10 Comment: [id number], OGSOBEIDAZ, RM113, , 01/19/22 Result Comment: PERF ORMED BY: [place] [address] PATHOLOGIST WE[employer] DEVELOPER NICHOLE BOLDEN M.D. Performed By: #### D DIMER, BMP, BNP, HS TROP, CKMB, CK, CBC, PTT, PT #### [address] Basophils/100 WBC (Bld) 0.7 % Normal . [facility] Comment on above: Order Comment: Diagn osis: I48.0, E11.9, I10 Comment: [id number], OGONTZ, RM113, , 01/19/22 Performed By: #### D DIMER, BMP, BNP, HS TROP, CKMB, CK, CBC, PTT, PT #### [address] Eosinophils (Bld) [#/Vol] 0.1 10*3/uL Normal 0.0-0.45 [facility] Comment on above: Order Comment: Diagn osis: I48.0, E11.9, I10 Comment: [id number], OGONTZ, RM113, , 01/19/22 Performed By: #### D DIMER, BMP, BNP, HS TROP, CKMB, CK, CBC, PTT, PT #### [facility] [address] [place] [address] [place] Eosinophils/100 WBC (Bld) 0.9 % Normal . [facility] Comment on above: Order Comment: Diagn osis: I48.0, E11.9, I10 Comment: [id number], OGONTZ, RM113, , 01/19/22 Performed By: #### D DIMER, BMP, BNP, HS TROP, CKMB, CK, CBC, PTT, PT #### [facility] [address] Erythrocyte distribution width (RBC) [Ratio] 12.8 % Normal 12.0-14.8 [facility] Comment on above: Order Comment: Diagn osis: I48.0, E11.9, I10 Comment: [id number], LORENA, [facility], , 01/19/22 Performed By: #### D DIMER, BMP, BNP, HS TROP, CKMB, CK, CBC, PTT, PT #### [facility] [address] Hematocrit (Bld) [Volume fraction] 33.7 % Low 38.8-50.0 [facility] Comment on above: Order Comment: Diagn osis: I48.0, E11.9, I10 Comment: [id number], LORENA, [facility], , 01/19/22 Performed By: #### D DIMER, BMP, BNP, HS TROP, CKMB, CK, CBC, PTT, PT #### [facility] [address] Hemoglobin (Bld) [Mass/Vol] 11.4 g/dL Low 13.0-17.0 [facility] Comment on above: Order Comment: Diagn osis: I48.0, E11.9, I10 Comment: [id number], LORENA, [facility], , 01/19/22 Performed By: #### D DIMER, BMP, BNP, HS TROP, CKMB, CK, CBC, PTT, PT #### [facility] [address] Lymphocytes (Bld) [#/Vol] 0.6 10*3/uL Low 1.00-4.8 [facility] Comment on above: Order Comment: Diagn osis: I48.0, E11.9, I10 Comment: [id number], KAYCEEZ, [facility], , 01/19/22 Performed By: #### D DIMER, BMP, BNP, HS TROP, CKMB, CK, CBC, PTT, PT #### [address] Lymphocytes/100 WBC (Bld) 7.6 % Normal . [facility] Comment on above: Order Comment: Diagn osis: I48.0, E11.9, I10 Comment: [id number], KAYCEEZ, [facility], , 01/19/22 Performed By: #### D DIMER, BMP, BNP, HS TROP, CKMB, CK, CBC, PTT, PT #### [address] MCH (RBC) [Entitic mass] 31.9 pg Normal 27.5-35.2 [facility] Comment on above: Order Comment: Diagn osis: I48.0, E11.9, I10 Comment: [id number], LORENA, [facility], , 01/19/22 Performed By: #### D DIMER, BMP, BNP, HS TROP, CKMB, CK, CBC, PTT, PT #### [address] MCV (RBC) [Entitic vol] 94.4 fL Normal 83.5-101 [facility] Comment on above: Order Comment: Diagn osis: I48.0, E11.9, I10 Comment: [id number], LORENA, [facility], , 01/19/22 Performed By: #### D DIMER, BMP, BNP, HS TROP, CKMB, CK, CBC, PTT, PT #### [address] Mean Corpuscular HGB Conc 33.8 g/dL Normal 32.5-35.6 [facility] Comment on above: Order Comment: Diagn osis: I48.0, E11.9, I10 Comment: [id number], KAYCEEZ, [facility], , 01/19/22 Performed By: #### D DIMER, BMP, BNP, HS TROP, CKMB, CK, CBC, PTT, PT #### [address] Monocytes (Bld) [#/Vol] 0.9 10*3/uL High 0.0-0.8 [facility] Comment on above: Order Comment: Diagn osis: I48.0, E11.9, I10 Comment: [id number], OGONTZ, RM113, , 01/19/22 Performed By: #### D DIMER, BMP, BNP, HS TROP, CKMB, CK, CBC, PTT, PT #### [facility] [address] [place] [phone] [facility] Monocytes/100 WBC (Bld) 10.7 % Normal . [facility] Comment on above: Order Comment: Diagn osis: I48.0, E11.9, I10 Comment: [id number], OGONTZ, RM113, , 01/19/22 Performed By: #### D DIMER, BMP, BNP, HS TROP, CKMB, CK, CBC, PTT, PT #### [facility] [address] [place] [phone] [place] Neutrophils (Bld) [#/Vol] 6.6 10*3/uL Normal 1.8-7.7 [facility] Comment on above: Order Comment: Diagn osis: I48.0, E11.9, I10 Comment: [id number], OGONTZ, RM113, , 01/19/22 Performed By: #### D DIMER, BMP, BNP, HS TROP, CKMB, CK, CBC, PTT, PT #### [facility] [address] [place] [phone] [place] Neutrophils/100 WBC (Bld) 80.1 % Normal . [facility] Comment on above: Order Comment: Diagn osis: I48.0, E11.9, I10 Comment: [id number], OGONTZ, RM113, , 01/19/22 Performed By: #### D DIMER, BMP, BNP, HS TROP, CKMB, CK, CBC, PTT, PT #### [facility] [address] [place] [phone] [place] Nucleated RBC/100 WBC (Bld) [Ratio] 0.1 % Normal 0-0.5 [facility] Comment on above: Order Comment: Diagn osis: I48.0, E11.9, I10 Comment: [id number], OGONTZ, RM113, , 01/19/22 Performed By: #### D DIMER, BMP, BNP, HS TROP, CKMB, CK, CBC, PTT, PT #### [facility] [address] Platelet mean volume (Bld) [Entitic vol] 9.0 fL Normal 6.6-10.1 [facility] Comment on above: Order Comment: Diagn osis: I48.0, E11.9, I10 Comment: [id number], LORENA [facility], , 01/19/22 Performed By: #### D DIMER, BMP, BNP, HS TROP, CKMB, CK, CBC, PTT, PT #### [facility] [address] Platelets (Bld) [#/Vol] 401 10*3/uL Normal 150-450 [facility] Comment on above: Order Comment: Diagn osis: I48.0, E11.9, I10 Comment: [id number], TRAVIS CARRILLO, , 01/19/22 Performed By: #### D DIMER, BMP, BNP, HS TROP, CKMB, CK, CBC, PTT, PT #### [facility] [address] RBC (Bld) [#/Vol] 3.57 10*6/uL Low 3.90-5.60 [facility] Comment on above: Order Comment: Diagn osis: I48.0, E11.9, I10 Comment: [id number], TRAVIS CARRILLO, , 01/19/22 Performed By: #### D DIMER, BMP, BNP, HS TROP, CKMB, CK, CBC, PTT, PT #### [facility] [address] WBC (Bld) [#/Vol] 8.2 10*3/uL Normal 4.5-11.0 [facility] Comment on above: Order Comment: Diagn osis: I48.0, E11.9, I10 Comment: [id number], LORENA Maranda, , 01/19/22 Performed By: #### D DIMER, BMP, BNP, HS TROP, CKMB, CK, CBC, PTT, PT #### [facility] [address] Creatinine and Glomerular fi ltration rate.predicted panel (S/P/Bld)Ordered By: Minh Kim on 01-25-2022 Creatinine [Mass/Vol] 0.52 mg/dL 0.64-1.27 [facility] Eosinophils Auto (Bld) [#/Vo l]Ordered By: Minh Kim on 01-25-2022 Eosinophils (Bld) [#/Vol] 0.1 10*3/uL 0.0-0.45 [facility] Eosinophils/100 WBC Auto (Bl d)Ordered By: Minh Kim on 01-25-2022 Eosinophils/100 WBC (Bld) 0.9 % . [facility] Erythrocyte distribution wid th Auto (RBC) [Ratio]Ordered By: Minh Kim on 01-25-2022 Erythrocyte distribution width (RBC) [Ratio] 12.8 % 12.0-14.8 [facility] Estimated glomerular filtrat ion rate (GFR) non- AmericanOrdered By: Minh Kim on 01-25-2022 GFR/1.73 sq M.predicted among non-blacks MDRD (S/P/Bld) [Vol rate/Area] > 60 mL/Min [facility] Hematocrit Auto (Bld) [Volum e fraction]Ordered By: Minh Kim on 01-25-2022 Hematocrit (Bld) [Volume fraction] 33.7 % 38.8-50.0 [facility] Laboratory - Hematology and Cell countsOrdered By: Minh Kim on 01-25-2022 Nucleated RBC/100 WBC (Bld) [Ratio] 0.1 % 0-0.5 [facility] Lymphocytes Auto (Bld) [#/Vo l]Ordered By: Minh Kim on 01-25-2022 Lymphocytes (Bld) [#/Vol] 0.6 10*3/uL 1.00-4.8 [facility] Lymphocytes/100 WBC Auto (Bl d)Ordered By: Minh Kim on 01-25-2022 Lymphocytes/100 WBC (Bld) 7.6 % . [facility] MCH Auto (RBC) [Entitic mass ]Ordered By: Minh Kim on 01-25-2022 MCH (RBC) [Entitic mass] 31.9 pg 27.5-35.2 [facility] MCHC Auto (RBC) [Mass/Vol]Or dered By: Minh Kim on 01-25-2022 MCHC (RBC) [Mass/Vol] 33.8 g/dL 32.5-35.6 [facility] MCV Auto (RBC) [Entitic vol] Ordered By: Minh Kim on 01-25-2022 MCV (RBC) [Entitic vol] 94.4 fL 83.5-101 [facility] Monocytes Auto (Bld) [#/Vol] Ordered By: Minh Kim on 01-25-2022 Monocytes (Bld) [#/Vol] 0.9 10*3/uL 0.0-0.8 [facility] Monocytes/100 WBC Auto (Bld) Ordered By: Minh Kim on 01-25-2022 Monocytes/100 WBC (Bld) 10.7 % . [facility] Neutrophils Auto (Bld) [#/Vo l]Ordered By: Minh Kim on 01-25-2022 Neutrophils (Bld) [#/Vol] 6.6 10*3/uL 1.8-7.7 [facility] Neutrophils/100 WBC Auto (Bl d)Ordered By: Minh Kim on 01-25-2022 Neutrophils/100 WBC (Bld) 80.1 % . [facility] No Panel InformationOrdered By: Minh Kim on 01-25-2022 Estimated GFR () > 60 mL/Min [facility] Comment on above: GFR estimated refere nce range: According to KDOQI guidelines, <60 ml/min/1.73m2 is sufficient to diagnose a patient with chronic kidney disease. Pharmacy Creatinine Clearance (Chem N/A [facility] Platelet mean volume Auto (B ld) [Entitic vol]Ordered By: Minh Kim on 01-25-2022 Platelet mean volume (Bld) [Entitic vol] 9.0 fL 6.6-10.1 [facility] Platelets Auto (Bld) [#/Vol] Ordered By: Minh Kim on 01-25-2022 Platelets (Bld) [#/Vol] 401 10*3/uL 150-450 [facility] RBC Auto (Bld) [#/Vol]Ordere d By: Minh Kim on 01-25-2022 RBC (Bld) [#/Vol] 3.57 10*6/uL 3.90-5.60 [facility] Serum or plasma anion gap de terminationOrdered By: Minh Kim on 01-25-2022 Anion gap [Moles/Vol] 12.5 mmol/L 6.0-15.[address] [facility] Serum or plasma calcium babita urement (mass/volume)Ordered By: Minh Kim on 01-25-2022 Calcium [Mass/Vol] 8.6 mg/dL 8.2-10.2 [facility] Serum or plasma chloride sabrina surement (moles/volume)Ordered By: Minh Kim on 01-25-2022 Chloride [Moles/Vol] 90 mmol/L 95-114 [facility] Serum or plasma glucose babita urement (mass/volume)Ordered By: Minh Kim on 01-25-2022 Glucose [Mass/Vol] 118 mg/dL 70-100 [facility] Comment on above: ADA recommended refe rence range [place] Glucose Reference Range is dependent on time and content of last meal. Glucose of more than 200 mg/dL in a nonstressed, ambulatory subject supports the diagnosis of Diabetes Mellitus. Serum or plasma potassium me asurement (moles/volume)Ordered By: Minh Kim on 01-25-2022 Potassium [Moles/Vol] 4.3 mmol/L 3.5-5.1 [facility] Serum or plasma sodium measu rement (moles/volume)Ordered By: Minh Kim on 01-25-2022 Sodium [Moles/Vol] 129 mmol/L 136-146 [facility] Serum or plasma total carbon dioxide measurement (moles/volume)Ordered By: Minh Kim on 01-25-2022 CO2 [Moles/Vol] 30.8 mmol/L 22.0-30.0 [facility] Serum or plasma urea nitroge n measurement (mass/volume)Ordered By: Minh Kim on 01-25-2022 Urea nitrogen [Mass/Vol] 11 mg/dL 9-23 [facility] A1C with Estimated Average G tierneyn 01-11-2022 Glucose [Mass/Vol] 146 mg/dL Normal [facility] Comment on above: Order Comment: Diagn osis: D50.9, E11.9, E78.5 Comment: Diane, LORENA, RM113, HM, 01/07/22 Result Comment: PERF ORMED BY: [place] [address] PATHOLOGIST [employer] DEVELOPER NICHOLE BOLDEN M.D. Performed By: #### D DIMER, BMP, BNP, HS TROP, CKMB, CK, CBC, PTT, PT #### [facility] [address] [place], [place] [phone] [facility] HbA1c (Bld) [Mass fraction] 6.7 % High 4.3-5.6 [facility] Comment on above: Order Comment: Diagn osis: D50.9, E11.9, E78.5 Comment: [id number], LORENA, RM113, , 01/07/22 Result Comment: Incr eased risk for diabetes: 5.7 - 6.4 diabetes: >6.4 glycemic control for adults with diabetes: <7.0 Performed By: #### D DIMER, BMP, BNP, HS TROP, CKMB, CK, CBC, PTT, PT #### [facility] [address] [place] [address] [facility] Albumin Levelon 01-11-2022 Albumin [Mass/Vol] 2.8 g/dL Low 3.2-5.5 [facility] Comment on above: Order Comment: Diagn osis: D50.9, E11.9, E78.5 Comment: [id number], LORENA, RM113, HM, 01/07/22 Result Comment: PERF ORMED BY: [place] [address] PATHOLOGIST WE[employer] DEVELOPER NICHOLE BOLDEN M.D. Performed By: #### D DIMER, BMP, BNP, HS TROP, CKMB, CK, CBC, PTT, PT #### [place] [phone] [place] Automated basophil %Ordered By: Minh Kim on 01-11-2022 Basophils/100 WBC (Bld) 0.8 % Normal . [facility] Comment on above: Order Comment: Diagn osis: D50.9, E11.9, E78.5 Comment: [id number], LORENA, RM113, , 01/07/22 Performed By: #### D DIMER, BMP, BNP, HS TROP, CKMB, CK, CBC, PTT, PT #### [facility] [address] Automated basophil countOrde red By: Minh Kim on 01-11-2022 Basophils (Bld) [#/Vol] 0.1 10*3/uL Normal 0.0-0.2 [facility] Comment on above: Order Comment: Diagn osis: D50.9, E11.9, E78.5 Comment: [id number], LORENA, RM113, , 01/07/22 Result Comment: PERF ORMED BY: [place] [address] PATHOLOGIST WE[employer]SPH[employer] DEVELOPER NICHOEL BOLDEN M.D. Performed By: #### D DIMER, BMP, BNP, HS TROP, CKMB, CK, CBC, PTT, PT #### [facility] [address] [place] [address] Automated blood lymphocyte c ount (number/volume)Ordered By: Minh Kim on 01-11-2022 Lymphocytes (Bld) [#/Vol] 0.6 10*3/uL Low 1.00-4.8 [facility] Comment on above: Order Comment: Diagn osis: D50.9, E11.9, E78.5 Comment: [id number], OGONTZ, RM113, , 01/07/22 Performed By: #### D DIMER, BMP, BNP, HS TROP, CKMB, CK, CBC, PTT, PT #### [facility] [address] [place] [address] Automated blood lymphocyte c ount as percentage of total leukocytesOrdered By: Minh Kim on 01-11-2022 Lymphocytes/100 WBC (Bld) 8.0 % Normal . [facility] Comment on above: Order Comment: Diagn osis: D5, , Comment: [id number], OGSOBEIDAZ, RM113, , 01/07/22 Performed By: #### D DIMER, BMP, BNP, HS TROP, CKMB, CK, CBC, PTT, PT #### [facility] [address] Automated blood monocyte cou ntOrdered By: Minh Kim on 01-11-2022 Monocytes (Bld) [#/Vol] 1.1 10*3/uL High 0.0-0.8 [facility] Comment on above: Order Comment: Diagn osis: , , Comment: [id number], KAYCEEZ, RM113, , 01/07/22 Performed By: #### D DIMER, BMP, BNP, HS TROP, CKMB, CK, CBC, PTT, PT #### [facility] [address] [place] [address] Automated blood platelet cou nt (count/volume)Ordered By: Minh Kim on 01-11-2022 Platelets (Bld) [#/Vol] 383 10*3/uL Normal 150-450 [facility] Comment on above: Order Comment: Diagn osis: , , Comment: [id number], LORENA, RM113, , 01/07/22 Performed By: #### D DIMER, BMP, BNP, HS TROP, CKMB, CK, CBC, PTT, PT #### [facility] [address] [place] [address] Automated blood platelet sabrina n volume measurementOrdered By: Minh Kim on 01-11-2022 Platelet mean volume (Bld) [Entitic vol] 9.0 fL Normal 6.6-10.1 [facility] Comment on above: Order Comment: Diagn osis: , , Comment: [id number], KAYCEEZ, RM113, , 01/07/22 Performed By: #### D DIMER, BMP, BNP, HS TROP, CKMB, CK, CBC, PTT, PT #### [facility] [address] Automated eosinophil %Ordere d By: Minh Kim on 01-11-2022 Eosinophils/100 WBC (Bld) 1.2 % Normal . [facility] Comment on above: Order Comment: Diagn osis: D50.9, E11.9, E78.5 Comment: [id number], LORENA, RM113, , 01/07/22 Performed By: #### D DIMER, BMP, BNP, HS TROP, CKMB, CK, CBC, PTT, PT #### [address] Automated eosinophil countOr dered By: Minh Kim on 01-11-2022 Eosinophils (Bld) [#/Vol] 0.1 10*3/uL Normal 0.0-0.45 [facility] Comment on above: Order Comment: Diagn osis: D50.9, E11.9, E78.5 Comment: [id number], LORENA, RM113, , 01/07/22 Performed By: #### D DIMER, BMP, BNP, HS TROP, CKMB, CK, CBC, PTT, PT #### [address] Automated erythrocyte distri bution width ratioOrdered By: Minh Kim on 01-11-2022 Erythrocyte distribution width (RBC) [Ratio] 12.9 % Normal 12.0-14.8 [facility] Comment on above: Order Comment: Diagn osis: D50.9, E11.9, E78.5 Comment: [id number], LORENA, RM113, , 01/07/22 Performed By: #### D DIMER, BMP, BNP, HS TROP, CKMB, CK, CBC, PTT, PT #### [address] Automated erythrocyte mean c orpuscular hemoglobin (mass per erythrocyte)Ordered By: Minh Kim on 01-11-2022 MCH (RBC) [Entitic mass] 32.6 pg Normal 27.5-35.2 [facility] Comment on above: Order Comment: Diagn osis: D50.9, E11.9, E78.5 Comment: Diane, LORENA, KIM113, , 01/07/22 Performed By: #### D DIMER, BMP, BNP, HS TROP, CKMB, CK, CBC, PTT, PT #### [facility] [address] Automated erythrocyte mean c orpuscular volumeOrdered By: Minh Kim on 01-11-2022 MCV (RBC) [Entitic vol] 96.5 fL Normal 83.5-101 [facility] Comment on above: Order Comment: Diagn osis: D50.9, E11.9, E78.5 Comment: [id number], OGONTZ, RM113, , 01/07/22 Performed By: #### D DIMER, BMP, BNP, HS TROP, CKMB, CK, CBC, PTT, PT #### [address] Automated monocyte %Ordered By: Minh Kim on 01-11-2022 Monocytes/100 WBC (Bld) 14.8 % Normal . [facility] Comment on above: Order Comment: Diagn osis: D50.9, E11.9, E78.5 Comment: [id number], OGONTZ, RM113, , 01/07/22 Performed By: #### D DIMER, BMP, BNP, HS TROP, CKMB, CK, CBC, PTT, PT #### [place] [phone] [facility] Automated neutrophil %Ordere d By: Minh Kim on 01-11-2022 Neutrophils/100 WBC (Bld) 75.2 % Normal . [facility] Comment on above: Order Comment: Diagn osis: D50.9, E11.9, E78.5 Comment: [id number], OGONTZ, RM113, , 01/07/22 Performed By: #### D DIMER, BMP, BNP, HS TROP, CKMB, CK, CBC, PTT, PT #### [place] [phone] [facility] Basic Metabolic Panelon Anion gap [Moles/Vol] 13.7 mmol/L Normal 6.0-15.[address] [facility] Comment on above: Order Comment: Diagn osis: D50., E11., E78. Comment: [id number], OGONTZ, RM113, , 01/07/22 Performed By: #### D DIMER, BMP, BNP, HS TROP, CKMB, CK, CBC, PTT, PT #### [facility] [address] [place] [phone] [facility] Calcium [Mass/Vol] 8.7 mg/dL Normal 8.2-10.2 [facility] Comment on above: Order Comment: Diagn osis: D50., E11., E78. Comment: [id number], OGONTZ, RM113, , 01/07/22 Performed By: #### D DIMER, BMP, BNP, HS TROP, CKMB, CK, CBC, PTT, PT #### [facility] [address] [place] [address] Chloride [Moles/Vol] 93 mmol/L Low 95-114 [facility] Comment on above: Order Comment: Diagn osis: D50., , E78. Comment: [id number], OGONTZ, RM113, , 01/07/22 Performed By: #### D DIMER, BMP, BNP, HS TROP, CKMB, CK, CBC, PTT, PT #### [facility] [address] [place], [place] [phone] [facility] CO2 [Moles/Vol] 28.2 mmol/L Normal 22.0-30.0 [facility] Comment on above: Order Comment: Diagn osis: D50., , E78. Comment: [id number], OGONTZ, RM113, , 01/07/22 Performed By: #### D DIMER, BMP, BNP, HS TROP, CKMB, CK, CBC, PTT, PT #### [facility] [address] [place] [phone] [facility] Creatinine [Mass/Vol] 0.55 mg/dL Low 0.64-1.27 [facility] Comment on above: Order Comment: Diagn osis: D50., E11., E78. Comment: [id number], OGONTZ, RM113, , 01/07/22 Performed By: #### D DIMER, BMP, BNP, HS TROP, CKMB, CK, CBC, PTT, PT #### [facility] [address] [place] [address] [facility] Estimated GFR ( Uzma > 60 [facility] Comment on above: Order Comment: Diagn osis: D50.9, E11.9, E78.5 Comment: [id number] Harmon RM113, , 01/07/22 Result Comment: GFR estimated reference range: According to KDOQI guidelines, <60 ml/min/1.73m2 is sufficient to diagnose a patient with chronic kidney disease. Performed By: #### D DIMER, BMP, BNP, HS TROP, CKMB, CK, CBC, PTT, PT #### [facility] [address] Estimated GFR (Non- Am > 60 [facility] Comment on above: Order Comment: Diagn osis: D50.9, E11.9, E78.5 Comment: [id number] RM113, , 01/07/22 Performed By: #### D DIMER, BMP, BNP, HS TROP, CKMB, CK, CBC, PTT, PT #### [facility] [address] [place] [phone] [facility] Glucose [Mass/Vol] 133 mg/dL High 70-100 [facility] Comment on above: Order Comment: Diagn osis: D50.9, E11.9, E78.5 Comment: [id number], TRAVIS CARRILLO, , 01/07/22 Result Comment: [place] Glucose Reference Range is dependent on time and content of last meal. Glucose of more than 200 mg/dL in a nonstressed, ambulatory subject supports the diagnosis of Diabetes Mellitus. ADA recommended reference range Performed By: #### D DIMER, BMP, BNP, HS TROP, CKMB, CK, CBC, PTT, PT #### [facility] [address] [id number] [facility] Potassium [Moles/Vol] 3.9 mmol/L Normal 3.5-5.1 [facility] Comment on above: Order Comment: Diagn osis: D50.9, E11.9, E78.5 Comment: [id number], OGONTZ, RM113, HM, 01/07/22 Performed By: #### D DIMER, BMP, BNP, HS TROP, CKMB, CK, CBC, PTT, PT #### [facility] [address] Sodium [Moles/Vol] 131 mmol/L Low 136-146 [facility] Comment on above: Order Comment: Diagn osis: D5, , Comment: [id number], OGONTZ, RM113, , 01/07/22 Performed By: #### D DIMER, BMP, BNP, HS TROP, CKMB, CK, CBC, PTT, PT #### [address] Urea nitrogen [Mass/Vol] 13 mg/dL Normal 9-23 [facility] Comment on above: Order Comment: Diagn osis: , , Comment: [id number], OGONTZ, RM113, , 01/07/22 Performed By: #### D DIMER, BMP, BNP, HS TROP, CKMB, CK, CBC, PTT, PT #### [facility] [address] [place] [address] Blood erythrocytes automated count (number/volume)Ordered By: Minh Kim on 01-11-2022 RBC (Bld) [#/Vol] 3.47 10*6/uL Low 3.90-5.60 [facility] Comment on above: Order Comment: Diagn osis: D5, , Comment: [id number], OGONTZ, RM113, , 01/07/22 Performed By: #### D DIMER, BMP, BNP, HS TROP, CKMB, CK, CBC, PTT, PT #### [address] Blood hemoglobin measurement (mass/volume)Ordered By: Minh Kim on 01-11-2022 Hemoglobin (Bld) [Mass/Vol] 11.3 g/dL Low 13.0-17.0 [facility] Comment on above: Order Comment: Diagn osis: D5, , Comment: [id number], LORENA, RM113, HM, 01/07/22 Performed By: #### D DIMER, BMP, BNP, HS TROP, CKMB, CK, CBC, PTT, PT #### [facility] [address] Blood leukocytes automated c ount (number/volume)Ordered By: Minh Kim on 01-11-2022 WBC (Bld) [#/Vol] 7.5 10*3/uL Normal 4.5-11.0 [facility] Comment on above: Order Comment: Diagn osis: , , Comment: [id number], LORENA, RM113, , 01/07/22 Performed By: #### D DIMER, BMP, BNP, HS TROP, CKMB, CK, CBC, PTT, PT #### [address] Blood neutrophil count by au tomated method (number/volume)Ordered By: Minh Kim on 01-11-2022 Neutrophils (Bld) [#/Vol] 5.7 10*3/uL Normal 1.8-7.7 [facility] Comment on above: Order Comment: Diagn osis: , , Comment: [id number], LORENA, RM113, , 01/07/22 Performed By: #### D DIMER, BMP, BNP, HS TROP, CKMB, CK, CBC, PTT, PT #### [address] Body fluid albumin measureme nt (mass/volume)Ordered By: Minh Kim on 01-11-2022 Albumin (Body fld) [Mass/Vol] 2.8 g/dL 3.2-5.5 [facility] Complete Blood Count Auto Di ffon 01-11-2022 Mean Corpuscular HGB Conc 33.8 g/dL Normal 32.5-35.6 [facility] Comment on above: Order Comment: Diagn osis: , , E78.5 Comment: [id number], OGONTZ, RM113, , 01/07/22 Performed By: #### D DIMER, BMP, BNP, HS TROP, CKMB, CK, CBC, PTT, PT #### [facility] [address] Complete Blood Count Auto Di ffOrdered By: Minh Kim on 01-11-2022 Nucleated RBC/100 WBC (Bld) [Ratio] 0.1 % Normal 0-0.5 [facility] Comment on above: Order Comment: Diagn osis: D50.9, E11.9, E78.5 Comment: [id number], OGONTZ, RM113, , 01/07/22 Performed By: #### D DIMER, BMP, BNP, HS TROP, CKMB, CK, CBC, PTT, PT #### [facility] [address] Creatinine and Glomerular fi ltration rate.predicted panel (S/P/Bld)Ordered By: Minh Kim on 01-11-2022 Creatinine [Mass/Vol] 0.55 mg/dL 0.64-1.27 [facility] Estimated glomerular filtrat ion rate (GFR) non- AmericanOrdered By: Minh Kim on 01-11-2022 GFR/1.73 sq M.predicted among non-blacks MDRD (S/P/Bld) [Vol rate/Area] > 60 mL/Min [facility] Glucose mean value [Mass/vol ume] in Blood Estimated from glycated hemoglobinOrdered By: Minh Kim on 01-11-2022 Average glucose Estimated from glycated hemoglobin (Bld) [Mass/Vol] 146 mg/dL [facility] Hematocrit [Volume Fraction] of Blood by Automated countOrdered By: Minh Kim on 01-11-2022 Hematocrit (Bld) [Volume fraction] 33.5 % Low 38.8-50.0 [facility] Comment on above: Order Comment: Diagn osis: D50.9, E11.9, E78.5 Comment: [id number], OGONTZ, RM113, , 01/07/22 Performed By: #### D DIMER, BMP, BNP, HS TROP, CKMB, CK, CBC, PTT, PT #### [facility] [address] [place] [id number] [facility] Hemoglobin A1c percentageOrd ered By: Minh Kim on 01-11-2022 HbA1c (Bld) [Mass fraction] 6.7 % 4.3-5.6 [facility] Comment on above: Increased risk for d iabetes: 5.7 - 6.4 diabetes: >6.4 glycemic control for adults with diabetes: <7.0 MCHC Auto (RBC) [Mass/Vol]Or dered By: Minh Kim on 01-11-2022 MCHC (RBC) [Mass/Vol] 33.8 g/dL 32.5-35.6 [facility] No Panel InformationOrdered By: Minh Kim on 01-11-2022 Estimated GFR () > 60 mL/Min [facility] Comment on above: GFR estimated refere nce range: According to KDOQI guidelines, <60 ml/min/1.73m2 is sufficient to diagnose a patient with chronic kidney disease. Pharmacy Creatinine Clearance (Chem N/A [facility] Serum or plasma anion gap de terminationOrdered By: Minh Kim on 01-11-2022 Anion gap [Moles/Vol] 13.7 mmol/L 6.0-15.[address] [facility] Serum or plasma calcium babita urement (mass/volume)Ordered By: Minh Kim on 01-11-2022 Calcium [Mass/Vol] 8.7 mg/dL 8.2-10.2 [facility] Serum or plasma chloride sabrina surement (moles/volume)Ordered By: Minh Kim on 01-11-2022 Chloride [Moles/Vol] 93 mmol/L 95-114 [facility] Serum or plasma glucose babita urement (mass/volume)Ordered By: Minh Kim on 01-11-2022 Glucose [Mass/Vol] 133 mg/dL 70-100 [facility] Comment on above: ADA recommended refe rence range Random Glucose Reference Range is dependent on time and content of last meal. Glucose of more than 200 mg/dL in a nonstressed, ambulatory subject supports the diagnosis of Diabetes Mellitus. Serum or plasma potassium me asurement (moles/volume)Ordered By: Minh Kim on 01-11-2022 Potassium [Moles/Vol] 3.9 mmol/L 3.5-5.1 [facility] Serum or plasma sodium measu rement (moles/volume)Ordered By: Minh Kim on 01-11-2022 Sodium [Moles/Vol] 131 mmol/L 136-146 [facility] Serum or plasma total carbon dioxide measurement (moles/volume)Ordered By: Minh Kim on 01-11-2022 CO2 [Moles/Vol] 28.2 mmol/L 22.0-30.0 [facility] Serum or plasma urea nitroge n measurement (mass/volume)Ordered By: Minh Kim on 01-11-2022 Urea nitrogen [Mass/Vol] 13 mg/dL 9- [facility] Bacterial blood cultureOrder ed By: Ronit Caruso on 01-06-2022 Bacteria identified Cx Nom (Bld) NO GROWTH 5 DAYS [facility] Glucose Glucometer (BldC) [M ass/Vol]Ordered By: Mohsen Muniz on 01-05-2022 Glucose [Mass/Vol] 147 mg/dL [facility] Comment on above: Random Glucose Refer ence Range is dependent on time and content of last meal. Glucose of more than 200 mg/dL in a nonstressed, ambulatory subject supports the diagnosis of Diabetes Mellitus. Glucose Poct Glucometerson 0 01-05-2022 Commemt1 Glu2: Cleaned Meter Normal [facility] Comment on above: Result Comment: PERF ORMED BY: [place] [address] PATHOLOGIST WEBSPHERE DEVELOPER NICHOLE BOLDEN M.D. Performed By: #### D DIMER, BMP, BNP, HS TROP, CKMB, CK, CBC, PTT, PT #### [facility] [address] Glucose [Mass/Vol] 147 mg/dL Normal [facility] Comment on above: Result Comment: [place] om Glucose Reference Range is dependent on time and content of last meal. Glucose of more than 200 mg/dL in a nonstressed, ambulatory subject supports the diagnosis of Diabetes Mellitus. Performed By: #### D DIMER, BMP, BNP, HS TROP, CKMB, CK, CBC, PTT, PT #### [facility] [address] Glucose [Mass/Vol] 153 mg/dL Normal [facility] Comment on above: Result Comment: [place] om Glucose Reference Range is dependent on time and content of last meal. Glucose of more than 200 mg/dL in a nonstressed, ambulatory subject supports the diagnosis of Diabetes Mellitus. PERFORMED BY: [place] [address] PATHOLOGIST WEBSPHERE DEVELOPER NICHOLE BOLDEN M.D. Performed By: #### D DIMER, BMP, BNP, HS TROP, CKMB, CK, CBC, PTT, PT #### [address] Glucose [Mass/Vol] 127 mg/dL Normal [facility] Comment on above: Result Comment: [place] om Glucose Reference Range is dependent on time and content of last meal. Glucose of more than 200 mg/dL in a nonstressed, ambulatory subject supports the diagnosis of Diabetes Mellitus. PERFORMED BY: [place] [address] PATHOLOGIST WEBSPHERE DEVELOPER NICHOLE BOLDEN M.D. Performed By: #### D DIMER, BMP, BNP, HS TROP, CKMB, CK, CBC, PTT, PT #### [address] No Panel InformationOrdered By: Mohsen Muniz on 01-05-2022 Bedside Glucose Comment Glu2: cleaned meter [facility] Albumin [Mass/volume] in Ser um or PlasmaOrdered By: Mohsen Muniz on 01-04-2022 Albumin [Mass/Vol] 3.0 g/dL 3.2-5.5 [facility] Basophils Auto (Bld) [#/Vol] Ordered By: Mohsen Muniz on 01-04-2022 Basophils (Bld) [#/Vol] 0.0 10*3/uL 0.0-0.2 [facility] Basophils/100 WBC Auto (Bld) Ordered By: Mohsen Muniz on 01-04-2022 Basophils/100 WBC (Bld) 0.5 % . [facility] Blood hemoglobin measurement (mass/volume)Ordered By: Omhsenronit Muniz on 01-04-2022 Hemoglobin (Bld) [Mass/Vol] 12.3 g/dL 13.0-17.0 [facility] Blood leukocytes automated c ount (number/volume)Ordered By: Mohsen Muniz on 01-04-2022 WBC (Bld) [#/Vol] 6.1 10*3/uL 4.5-11.0 [facility] Complete Blood Count Auto Di ffon 01-04-2022 Basophils (Bld) [#/Vol] 0.0 10*3/uL Normal 0.0-0.2 [facility] Comment on above: Result Comment: PERF ORMED BY: [place] [address] PATHOLOGIST WE[employer]SPH[employer] DEVELOPER NICHOLE BOLDEN M.D. Performed By: #### D DIMER, BMP, BNP, HS TROP, CKMB, CK, CBC, PTT, PT #### [address] Basophils/100 WBC (Bld) 0.5 % Normal . [facility] Comment on above: Performed By: #### D DIMER, BMP, BNP, HS TROP, CKMB, CK, CBC, PTT, PT #### [facility] [address] [place] [address] [place] Eosinophils (Bld) [#/Vol] 0.1 10*3/uL Normal 0.0-0.45 [facility] Comment on above: Performed By: #### D DIMER, BMP, BNP, HS TROP, CKMB, CK, CBC, PTT, PT #### [place] [address] [place] Eosinophils/100 WBC (Bld) 2.3 % Normal . [facility] Comment on above: Performed By: #### D DIMER, BMP, BNP, HS TROP, CKMB, CK, CBC, PTT, PT #### [address] Erythrocyte distribution width (RBC) [Ratio] 13.2 % Normal 12.0-14.8 [facility] Comment on above: Performed By: #### D DIMER, BMP, BNP, HS TROP, CKMB, CK, CBC, PTT, PT #### [address] Hematocrit (Bld) [Volume fraction] 36.2 % Low 38.8-50.0 [facility] Comment on above: Performed By: #### D DIMER, BMP, BNP, HS TROP, CKMB, CK, CBC, PTT, PT #### [address] Hemoglobin (Bld) [Mass/Vol] 12.3 g/dL Low 13.0-17.0 [facility] Comment on above: Performed By: #### D DIMER, BMP, BNP, HS TROP, CKMB, CK, CBC, PTT, PT #### [address] Lymphocytes (Bld) [#/Vol] 0.5 10*3/uL Low 1.00-4.8 [facility] Comment on above: Performed By: #### D DIMER, BMP, BNP, HS TROP, CKMB, CK, CBC, PTT, PT #### [address] Lymphocytes/100 WBC (Bld) 8.6 % Normal . [facility] Comment on above: Performed By: #### D DIMER, BMP, BNP, HS TROP, CKMB, CK, CBC, PTT, PT #### [address] MCH (RBC) [Entitic mass] 32.9 pg Normal 27.5-35.2 [facility] Comment on above: Performed By: #### D DIMER, BMP, BNP, HS TROP, CKMB, CK, CBC, PTT, PT #### [address] MCV (RBC) [Entitic vol] 96.7 fL Normal 83.5-101 [facility] Comment on above: Performed By: #### D DIMER, BMP, BNP, HS TROP, CKMB, CK, CBC, PTT, PT #### [address] Mean Corpuscular HGB Conc 34.0 g/dL Normal 32.5-35.6 [facility] Comment on above: Performed By: #### D DIMER, BMP, BNP, HS TROP, CKMB, CK, CBC, PTT, PT #### [address] Monocytes (Bld) [#/Vol] 0.8 10*3/uL Normal 0.0-0.8 [facility] Comment on above: Performed By: #### D DIMER, BMP, BNP, HS TROP, CKMB, CK, CBC, PTT, PT #### [address] Monocytes/100 WBC (Bld) 12.6 % Normal . [facility] Comment on above: Performed By: #### D DIMER, BMP, BNP, HS TROP, CKMB, CK, CBC, PTT, PT #### [place] [address] [place] Neutrophils (Bld) [#/Vol] 4.6 10*3/uL Normal 1.8-7.7 [facility] Comment on above: Performed By: #### D DIMER, BMP, BNP, HS TROP, CKMB, CK, CBC, PTT, PT #### [address] Neutrophils/100 WBC (Bld) 76.0 % Normal . [facility] Comment on above: Performed By: #### D DIMER, BMP, BNP, HS TROP, CKMB, CK, CBC, PTT, PT #### [address] Nucleated RBC/100 WBC (Bld) [Ratio] 0.0 % Normal 0-0.5 [facility] Comment on above: Performed By: #### D DIMER, BMP, BNP, HS TROP, CKMB, CK, CBC, PTT, PT #### [facility] [address] Platelet mean volume (Bld) [Entitic vol] 10.6 fL High 6.6-10.1 [facility] Comment on above: Performed By: #### D DIMER, BMP, BNP, HS TROP, CKMB, CK, CBC, PTT, PT #### [facility] [address] Platelets (Bld) [#/Vol] 214 10*3/uL Normal 150-450 [facility] Comment on above: Performed By: #### D DIMER, BMP, BNP, HS TROP, CKMB, CK, CBC, PTT, PT #### [address] RBC (Bld) [#/Vol] 3.74 10*6/uL Low 3.90-5.60 [facility] Comment on above: Performed By: #### D DIMER, BMP, BNP, HS TROP, CKMB, CK, CBC, PTT, PT #### [address] WBC (Bld) [#/Vol] 6.1 10*3/uL Normal 4.5-11.0 [facility] Comment on above: Performed By: #### D DIMER, BMP, BNP, HS TROP, CKMB, CK, CBC, PTT, PT #### [address] Comprehensive Metabolic Pane ritika 01-04-2022 Albumin [Mass/Vol] 3.0 g/dL Low 3.2-5.5 [facility] Comment on above: Order Comment: HEMOL YZED-PLEASE REDRAW. MLG Performed By: #### D DIMER, BMP, BNP, HS TROP, CKMB, CK, CBC, PTT, PT #### [address] Albumin/Globulin [Mass ratio] 0.9 {ratio} Normal [facility] Comment on above: Order Comment: HEMOL YZED-PLEASE REDRAW. MLG Performed By: #### D DIMER, BMP, BNP, HS TROP, CKMB, CK, CBC, PTT, PT #### [address] ALP [Catalytic activity/Vol] 44 U/L Normal 32-92 [facility] Comment on above: Order Comment: HEMOL YZED-PLEASE REDRAW. MLG Performed By: #### D DIMER, BMP, BNP, HS TROP, CKMB, CK, CBC, PTT, PT #### [address] ALT [Catalytic activity/Vol] 11 U/L Normal 10-60 [facility] Comment on above: Order Comment: HEMOL YZED-PLEASE REDRAW. MLG Performed By: #### D DIMER, BMP, BNP, HS TROP, CKMB, CK, CBC, PTT, PT #### [address] Anion gap [Moles/Vol] 12.2 mmol/L Normal 6.0-15.[address] [facility] Comment on above: Order Comment: HEMOL YZED-PLEASE REDRAW. MLG Performed By: #### D DIMER, BMP, BNP, HS TROP, CKMB, CK, CBC, PTT, PT #### [address] AST [Catalytic activity/Vol] 14 U/L Normal 10-42 [facility] Comment on above: Order Comment: HEMOL YZED-PLEASE REDRAW. MLG Performed By: #### D DIMER, BMP, BNP, HS TROP, CKMB, CK, CBC, PTT, PT #### [address] Bilirubin [Mass/Vol] 0.9 mg/dL Normal 0.3-1.2 [facility] Comment on above: Order Comment: HEMOL YZED-PLEASE REDRAW. MLG Performed By: #### D DIMER, BMP, BNP, HS TROP, CKMB, CK, CBC, PTT, PT #### [address] Calcium [Mass/Vol] 8.6 mg/dL Normal 8.2-10.2 [facility] Comment on above: Order Comment: HEMOL YZED-PLEASE REDRAW. MLG Performed By: #### D DIMER, BMP, BNP, HS TROP, CKMB, CK, CBC, PTT, PT #### [facility] [address] Chloride [Moles/Vol] 94 mmol/L Low 95-114 [facility] Comment on above: Order Comment: HEMOL YZED-PLEASE REDRAW. MLG Performed By: #### D DIMER, BMP, BNP, HS TROP, CKMB, CK, CBC, PTT, PT #### [facility] [address] CO2 [Moles/Vol] 28.6 mmol/L Normal 22.0-30.0 [facility] Comment on above: Order Comment: HEMOL YZED-PLEASE REDRAW. MLG Performed By: #### D DIMER, BMP, BNP, HS TROP, CKMB, CK, CBC, PTT, PT #### [facility] [address] Creatinine [Mass/Vol] 0.56 mg/dL Low 0.64-1.27 [facility] Comment on above: Order Comment: HEMOL YZED-PLEASE REDRAW. MLG Performed By: #### D DIMER, BMP, BNP, HS TROP, CKMB, CK, CBC, PTT, PT #### [facility] [address] [place] [address] Creatinine Clr Calc Pharmacy 62.94 [facility] Comment on above: Order Comment: HEMOL YZED-PLEASE REDRAW. MLG Performed By: #### D DIMER, BMP, BNP, HS TROP, CKMB, CK, CBC, PTT, PT #### [facility] [address] Estimated GFR ( Uzma > 60 [facility] Comment on above: Order Comment: HEMOL YZED-PLEASE REDRAW. MLG Result Comment: GFR estimated reference range: According to KDOQI guidelines, <60 ml/min/1.73m2 is sufficient to diagnose a patient with chronic kidney disease. Performed By: #### D DIMER, BMP, BNP, HS TROP, CKMB, CK, CBC, PTT, PT #### [address] Estimated GFR (Non- Am > 60 Normal [facility] Comment on above: Order Comment: HEMOL YZED-PLEASE REDRAW. MLG Performed By: #### D DIMER, BMP, BNP, HS TROP, CKMB, CK, CBC, PTT, PT #### [facility] [address] Globulin (S) [Mass/Vol] 3.2 g/dL Normal [facility] Comment on above: Order Comment: HEMOL YZED-PLEASE REDRAW. MLG Performed By: #### D DIMER, BMP, BNP, HS TROP, CKMB, CK, CBC, PTT, PT #### [address] Glucose [Mass/Vol] 124 mg/dL High 70-100 [facility] Comment on above: Order Comment: HEMOL YZED-PLEASE REDRAW. MLG Result Comment: [facility] Glucose Reference Range is dependent on time and content of last meal. Glucose of more than 200 mg/dL in a nonstressed, ambulatory subject supports the diagnosis of Diabetes Mellitus. ADA recommended reference range Performed By: #### D DIMER, BMP, BNP, HS TROP, CKMB, CK, CBC, PTT, PT #### [address] Potassium [Moles/Vol] 3.8 mmol/L Normal 3.5-5.1 [facility] Comment on above: Order Comment: HEMOL YZED-PLEASE REDRAW. MLG Performed By: #### D DIMER, BMP, BNP, HS TROP, CKMB, CK, CBC, PTT, PT #### [address] Protein [Mass/Vol] 6.2 g/dL Normal 6.1-7.9 [facility] Comment on above: Order Comment: HEMOL YZED-PLEASE REDRAW. MLG Performed By: #### D DIMER, BMP, BNP, HS TROP, CKMB, CK, CBC, PTT, PT #### [facility] [address] Sodium [Moles/Vol] 131 mmol/L Low 136-146 [facility] Comment on above: Order Comment: HEMOL YZED-PLEASE REDRAW. MLG Performed By: #### D DIMER, BMP, BNP, HS TROP, CKMB, CK, CBC, PTT, PT #### [facility] [address] Urea nitrogen [Mass/Vol] 14 mg/dL Normal 9-23 [facility] Comment on above: Order Comment: HEMOL YZED-PLEASE REDRAW. MLG Performed By: #### D DIMER, BMP, BNP, HS TROP, CKMB, CK, CBC, PTT, PT #### [facility] [address] [place] [address] [place] Creatinine and Glomerular fi ltration rate.predicted panel (S/P/Bld)Ordered By: Mohsen Muniz on 01-04-2022 Creatinine [Mass/Vol] 0.56 mg/dL 0.64-1.27 [facility] Eosinophils Auto (Bld) [#/Vo l]Ordered By: Mohsen Muniz on 01-04-2022 Eosinophils (Bld) [#/Vol] 0.1 10*3/uL 0.0-0.45 [facility] Eosinophils/100 WBC Auto (Bl d)Ordered By: Mohsen Muniz on 01-04-2022 Eosinophils/100 WBC (Bld) 2.3 % . [facility] Erythrocyte distribution wid th Auto (RBC) [Ratio]Ordered By: Mohsen Muniz on 01-04-2022 Erythrocyte distribution width (RBC) [Ratio] 13.2 % 12.0-14.8 [facility] Estimated glomerular filtrat ion rate (GFR) non- AmericanOrdered By: Mohsen Muniz on 01-04-2022 GFR/1.73 sq M.predicted among non-blacks MDRD (S/P/Bld) [Vol rate/Area] > 60 mL/Min [facility] Folate [Mass/volume] in Seru m or PlasmaOrdered By: Mohsen Muniz on 01-04-2022 Folate [Mass/Vol] 15.7 ng/mL >5.9 [facility] Comment on above: Folate reference ran ge: >5.9 ng/ml The WHO technical consultation on folate and vitamin b12 deficiencies has determined that folate concentrations less than 4 ng/ml are considered deficient. Globulin Calc (S) [Mass/Vol] Ordered By: Mohsen Muniz on 01-04-2022 Globulin (S) [Mass/Vol] 3.2 g/dL F [facility] Glucose Poct Glucometerson 0 01-04-2022 Glucose [Mass/Vol] 121 mg/dL Normal [facility] Comment on above: Result Comment: [facility] Glucose Reference Range is dependent on time and content of last meal. Glucose of more than 200 mg/dL in a nonstressed, ambulatory subject supports the diagnosis of Diabetes Mellitus. PERFORMED BY: [place] [address] PATHOLOGIST WEBSPHERE DEVELOPER NICHOLE BOLDEN M.D. Performed By: #### D DIMER, BMP, BNP, HS TROP, CKMB, CK, CBC, PTT, PT #### [facility] [address] [place] [address] Glucose [Mass/Vol] 135 mg/dL Normal [facility] Comment on above: Result Comment: [place] Glucose Reference Range is dependent on time and content of last meal. Glucose of more than 200 mg/dL in a nonstressed, ambulatory subject supports the diagnosis of Diabetes Mellitus. PERFORMED BY: [facility] [address] [place] [address] PATHOLOGIST WEBSPHERE DEVELOPER NICHOLE BOLDEN M.D. Performed By: #### D DIMER, BMP, BNP, HS TROP, CKMB, CK, CBC, PTT, PT #### [facility] [address] [place] [id number] [place] Glucose [Mass/Vol] 177 mg/dL Normal [facility] Comment on above: Result Comment: [place] [facility] Glucose Reference Range is dependent on time and content of last meal. Glucose of more than 200 mg/dL in a nonstressed, ambulatory subject supports the diagnosis of Diabetes Mellitus. PERFORMED BY: [place] [address] PATHOLOGIST WEBSPHERE DEVELOPER NICHOLE BOLDEN M.D. Performed By: #### D DIMER, BMP, BNP, HS TROP, CKMB, CK, CBC, PTT, PT #### [address] Glucose [Mass/Vol] 119 mg/dL Normal [facility] Comment on above: Result Comment: [place] [facility] Glucose Reference Range is dependent on time and content of last meal. Glucose of more than 200 mg/dL in a nonstressed, ambulatory subject supports the diagnosis of Diabetes Mellitus. PERFORMED BY: [place] [address] PATHOLOGIST WEBSPHERE DEVELOPER NICHOLE BOLDEN M.D. Performed By: #### D DIMER, BMP, BNP, HS TROP, CKMB, CK, CBC, PTT, PT #### [place] [id number] [facility] Hematocrit Auto (Bld) [Volum e fraction]Ordered By: Mohsen Muniz on 01-04-2022 Hematocrit (Bld) [Volume fraction] 36.2 % 38.8-50.0 [facility] - Chemistry and C hemistry - challengeOrdered By: Mohsen Muniz on 01-04-2022 Cobalamin (Vitamin B12) [Mass/Vol] 89 pg/mL 180-914 [facility] - Hematology and Cell countsOrdered By: Mohsen Muniz on 01-04-2022 Nucleated RBC/100 WBC (Bld) [Ratio] 0.0 % 0-0.5 [facility] Lymphocytes Auto (Bld) [#/Vo l]Ordered By: Mohsen Muniz on 01-04-2022 Lymphocytes (Bld) [#/Vol] 0.5 10*3/uL 1.00-4.8 [facility] Lymphocytes/100 WBC Auto (Bl d)Ordered By: Mohsen Muniz on 01-04-2022 Lymphocytes/100 WBC (Bld) 8.6 % . [facility] MCH Auto (RBC) [Entitic mass ]Ordered By: Mohsen Muniz on 01-04-2022 MCH (RBC) [Entitic mass] 32.9 pg 27.5-35.2 [facility] MCHC Auto (RBC) [Mass/Vol]Or dered By: Mohsen Muniz on 01-04-2022 MCHC (RBC) [Mass/Vol] 34.0 g/dL 32.5-35.6 [facility] MCV Auto (RBC) [Entitic vol] Ordered By: Mohsen Muniz on 01-04-2022 MCV (RBC) [Entitic vol] 96.7 fL 83.5-101 F [facility] Monocytes Auto (Bld) [#/Vol] Ordered By: Mohsen Muniz on 01-04-2022 Monocytes (Bld) [#/Vol] 0.8 10*3/uL 0.0-0.8 [facility] Monocytes/100 WBC Auto (Bld) Ordered By: Mohsen Muniz on 01-04-2022 Monocytes/100 WBC (Bld) 12.6 % . [facility] Neutrophils Auto (Bld) [#/Vo l]Ordered By: Mohsen Muniz on 01-04-2022 Neutrophils (Bld) [#/Vol] 4.6 10*3/uL 1.8-7.7 [facility] Neutrophils/100 WBC Auto (Bl d)Ordered By: Mohsen Muniz on 01-04-2022 Neutrophils/100 WBC (Bld) 76.0 % . [facility] No Panel InformationOrdered By: Mohsen Muniz on 01-04-2022 25-Hydroxy Vitamin D Total 60.5 ng/mL 30-100 [facility] Comment on above: VITAMIN D STATUS 25( [place])VITAMIN D RANGE (ng/mL) Deficient <20 Insufficient 20 to <30 Sufficient 30 to 100 Reference: Madi MF,Luis E NC, Josué MIGUEL, et al. Evaluation,treatment, and prevention of vitamin D deficiency; an Endocrine Society clinical practice guideline. JCEM. 2010; 96(7):1911-30. Estimated GFR () > 60 mL/Min [facility] Comment on above: GFR estimated refere nce range: According to KDOQI guidelines, <60 ml/min/1.73m2 is sufficient to diagnose a patient with chronic kidney disease. Pharmacy Creatinine Clearance (Chem 62.94 [facility] Platelet mean volume Auto (B ld) [Entitic vol]Ordered By: Mohsen Muniz on 01-04-2022 Platelet mean volume (Bld) [Entitic vol] 10.6 fL 6.6-10.1 [facility] Platelets Auto (Bld) [#/Vol] Ordered By: Mohsen Muniz on 01-04-2022 Platelets (Bld) [#/Vol] 214 10*3/uL 150-450 [facility] Protein [Mass/volume] in Ser um or PlasmaOrdered By: Mohsen Muniz on 01-04-2022 Protein [Mass/Vol] 6.2 g/dL 6.1-7.9 [facility] RBC Auto (Bld) [#/Vol]Ordere d By: Mohsen Muniz on 01-04-2022 RBC (Bld) [#/Vol] 3.74 10*6/uL 3.90-5.60 [facility] Serum or plasma alanine cortez otransferase measurement without P-5'-P (enzymatic activiOrdered By: Mohsen Muniz on 01-04-2022 ALT No additional P-5'-P [Catalytic activity/Vol] 11 U/L 10-60 [facility] Serum or plasma albumin/glob ulin mass ratioOrdered By: Mohsen Muniz on 01-04-2022 Albumin/Globulin [Mass ratio] 0.9 {ratio} [facility] Serum or plasma alkaline suyapa sphatase measurement (enzymatic activity/volume)Ordered By: Mohsen Muniz on 01-04-2022 ALP [Catalytic activity/Vol] 44 U/L 32-92 [facility] Serum or plasma anion gap de terminationOrdered By: Mohsen Muniz on 01-04-2022 Anion gap [Moles/Vol] 12.2 mmol/L 6.0-15.[address] [facility] Serum or plasma aspartate am inotransferase measurement (enzymatic activity/volume)Ordered By: Mohsen Muniz on 01-04-2022 AST [Catalytic activity/Vol] 14 U/L 10-42 [facility] Serum or plasma calcium babtia urement (mass/volume)Ordered By: Mohsen Muniz on 01-04-2022 Calcium [Mass/Vol] 8.6 mg/dL 8.2-10.2 [facility] Serum or plasma chloride sabrina surement (moles/volume)Ordered By: Mohsen Muniz on 01-04-2022 Chloride [Moles/Vol] 94 mmol/L 95-114 [facility] Serum or plasma glucose babita urement (mass/volume)Ordered By: Mohsen Muniz on 01-04-2022 Glucose [Mass/Vol] 124 mg/dL 70-100 [facility] Comment on above: ADA recommended refe rence range Random Glucose Reference Range is dependent on time and content of last meal. Glucose of more than 200 mg/dL in a nonstressed, ambulatory subject supports the diagnosis of Diabetes Mellitus. Serum or plasma potassium me asurement (moles/volume)Ordered By: Mohsen Muniz on 01-04-2022 Potassium [Moles/Vol] 3.8 mmol/L 3.5-5.1 [facility] Serum or plasma sodium measu rement (moles/volume)Ordered By: Mohsen Muniz on 01-04-2022 Sodium [Moles/Vol] 131 mmol/L 136-146 [facility] Serum or plasma total biliru bin measurement (mass/volume)Ordered By: Mohsen Muniz on 01-04-2022 Bilirubin [Mass/Vol] 0.9 mg/dL 0.3-1.2 [facility] Serum or plasma total carbon dioxide measurement (moles/volume)Ordered By: Mohsen Muniz on 01-04-2022 CO2 [Moles/Vol] 28.6 mmol/L 22.0-30.0 [facility] Serum or plasma urea nitroge n measurement (mass/volume)Ordered By: Mohsen Tobiaslaina on 01-04-2022 Urea nitrogen [Mass/Vol] 14 mg/dL 01-28 [facility] TSH DL <= 0.005 mIU/L QnOrde red By: Mohsen Lemonbaldo on 01-04-2022 TSH Qn 2.07 m[IU]/L 0.45-5.33 [facility] Thyroid Stim Hormone w/Rflxo n 01-04-2022 Thyroid Stim Hormone w/Rflx 2.07 u[iU]/mL Normal 0.45-5.33 [facility] Comment on above: Order Comment: HEMOL YZED-PLEASE REDRAW. MLG Performed By: #### D DIMER, BMP, BNP, HS TROP, CKMB, CK, CBC, PTT, PT #### [facility] [address] Vit. B12/Folate Profileon Cobalamin (Vitamin B12) [Mass/Vol] 89 pg/mL Low 180-914 [facility] Comment on above: Order Comment: HEMOL YZED-PLEASE REDRAW. MLG Performed By: #### D DIMER, BMP, BNP, HS TROP, CKMB, CK, CBC, PTT, PT #### [facility] [address] Folate 15.7 ng/mL Normal >5.9 [facility] Comment on above: Order Comment: HEMOL YZED-PLEASE REDRAW. MLG Result Comment: Mercedes te reference range: >5.9 ng/ml The WHO technical consultation on folate and vitamin b12 deficiencies has determined that folate concentrations less than 4 ng/ml are considered deficient. Performed By: #### D DIMER, BMP, BNP, HS TROP, CKMB, CK, CBC, PTT, PT #### [facility] [address] Vitamin D 25 Hydroxy Totalon 01-04-2022 Vitamin D 25 Hydroxy Total 60.5 ng/mL Normal 30-100 [facility] Comment on above: Order Comment: HEMOL YZED-PLEASE REDRAW. MLG Result Comment: RUDY MIN D STATUS 25(OH)VITAMIN D RANGE (ng/mL) Deficient <20 Insufficient 20 to <30 Sufficient 30 to 100 Reference: Madi MF,Luis E CAMPOVERDE, Josué MIGUEL, et al. Evaluation,treatment, and prevention of vitamin D deficiency; an Endocrine Society clinical practice guideline. JCEM. 2010; 96(7):1911-30. PERFORMED BY: [place] [address] PATHOLOGIST [employer] DEVELOPER NICHOLE BOLDEN M.D. Performed By: #### D DIMER, BMP, BNP, HS TROP, CKMB, CK, CBC, PTT, PT #### [address] ECG 12 lead ECGon 01-03-2022 ECG 12 lead ECG [facility] [place] [address] [place] [address] Electrocardiograph Report Signed Patient: Esa Leavitt MR#: [id number] 623 : 1935 Acct:[id number] Age/Sex: 86 / M ADM Date: 01/01/22 Loc: Room: [address] [place] [address] Type: DIS IN Attending Dr: Mohsen Muniz [...] Signed By Brooks Landaverde DO 01/03 Normal [facility] Glucose Poct Glucometerson 0 01-03-2022 Glucose [Mass/Vol] 241 mg/dL Normal [facility] Comment on above: Result Comment: [place] om Glucose Reference Range is dependent on time and content of last meal. Glucose of more than 200 mg/dL in a nonstressed, ambulatory subject supports the diagnosis of Diabetes Mellitus. PERFORMED BY: [place] [address] PATHOLOGIST WEBSPHERE DEVELOPER NICHOLE BOLDEN M.D. Performed By: #### D DIMER, BMP, BNP, HS TROP, CKMB, CK, CBC, PTT, PT #### [address] Commemt1 Glu2: Cleaned Meter Normal [facility] Comment on above: Result Comment: PERF ORMED BY: [place] [address] PATHOLOGIST WEBSPHERE DEVELOPER NICHOLE BOLDEN M.D. Performed By: #### D DIMER, BMP, BNP, HS TROP, CKMB, CK, CBC, PTT, PT #### [address] Glucose [Mass/Vol] 139 mg/dL Normal [facility] Comment on above: Result Comment: [facility] Glucose Reference Range is dependent on time and content of last meal. Glucose of more than 200 mg/dL in a nonstressed, ambulatory subject supports the diagnosis of Diabetes Mellitus. Performed By: #### D DIMER, BMP, BNP, HS TROP, CKMB, CK, CBC, PTT, PT #### [address] Glucose [Mass/Vol] 113 mg/dL Normal [facility] Comment on above: Result Comment: [place] om Glucose Reference Range is dependent on time and content of last meal. Glucose of more than 200 mg/dL in a nonstressed, ambulatory subject supports the diagnosis of Diabetes Mellitus. PERFORMED BY: [place] [address] PATHOLOGIST WEBSPHERE DEVELOPER NICHOLE BOLDEN M.D. Performed By: #### D DIMER, BMP, BNP, HS TROP, CKMB, CK, CBC, PTT, PT #### [facility] [address] Glucose [Mass/Vol] 162 mg/dL Normal [facility] Comment on above: Result Comment: [facility] Glucose Reference Range is dependent on time and content of last meal. Glucose of more than 200 mg/dL in a nonstressed, ambulatory subject supports the diagnosis of Diabetes Mellitus. PERFORMED BY: [place] [address] PATHOLOGIST WE[employer]SPHERE DEVELOPER NICHOLE BOLDEN M.D. Performed By: #### D DIMER, BMP, BNP, HS TROP, CKMB, CK, CBC, PTT, PT #### [facility] [address] [place] [address] NM ed perf SPECT rest stron 01-03-2022 NM ed perf SPECT rest str [facility] [place] [address] [place] [address] Nuclear Medicine Report Signed Patient: Esa Leavitt MR#: [id number] 623 : 1935 Acct:[id number] Age/Sex: 86 / M ADM Date: 01/01/22 Loc: Room: [address] [place] [address] Type: ADM IN Attending Dr: Mohsen Muniz MD Copies to: MD Demetra Gonzalez MD, [facility] Anderson Ambrosio MD Ordering Provider: Anderson Ambrosio [...] 01/03/22 1426 Dictated By: Demetra Downey MD, [facility] 01/03/22 1412 Signed By: 01/04/22 140 [facility] STR cardiac stress/lexiscano n 01-03-2022 STR cardiac stress/lexiscan [place] [address] Cardiac Stress Test Signed Patient: Esa Leavitt MR#: [id number] 623 : 1935 Acct:[id number] Age/Sex: 86 / M ADM Date: 01/01/22 Loc: Room: [address] [place] [address] Type: DIS IN Attending Dr: Mohsen Muniz MD Copies to: Demetra Downey MD, [facility] Anderson Ambrosio MD Ordering Provider: Anderson Ambrosio [...] reported separately by nuclear cardiology. Transcribed By: CHAVO 01/03/22 1442 Dictated By: Demetra Downey MD, [facility] 01/03/22 140 Signed By: 01/04/22 140 [facility] Basic Metabolic Panelon 12-07 Calcium [Mass/Vol] 8.7 mg/dL Normal 8.2-10.2 [facility] Comment on above: Performed By: #### D DIMER, BMP, BNP, HS TROP, CKMB, CK, CBC, PTT, PT #### [address] Chloride [Moles/Vol] 93 mmol/L Low 95-114 [facility] Comment on above: Performed By: #### D DIMER, BMP, BNP, HS TROP, CKMB, CK, CBC, PTT, PT #### [address] CO2 [Moles/Vol] 28.8 mmol/L Normal 22.0-30.0 [facility] Comment on above: Performed By: #### D DIMER, BMP, BNP, HS TROP, CKMB, CK, CBC, PTT, PT #### [address] Creatinine [Mass/Vol] 0.61 mg/dL Low 0.64-1.27 [facility] Comment on above: Performed By: #### D DIMER, BMP, BNP, HS TROP, CKMB, CK, CBC, PTT, PT #### [address] Creatinine Clr Calc Pharmacy 62.94 [facility] Comment on above: Result Comment: PERF ORMED BY: [place] [address] PATHOLOGIST WEBSPH[employer] DEVELOPER NICHOLE BOLDEN M.D. Performed By: #### D DIMER, BMP, BNP, HS TROP, CKMB, CK, CBC, PTT, PT #### [address] Estimated GFR ( Uzma > 60 [facility] Comment on above: Result Comment: GFR estimated reference range: According to KDOQI guidelines, <60 ml/min/1.73m2 is sufficient to diagnose a patient with chronic kidney disease. Performed By: #### D DIMER, BMP, BNP, HS TROP, CKMB, CK, CBC, PTT, PT #### [address] Estimated GFR (Non- Am > 60 [facility] Comment on above: Performed By: #### D DIMER, BMP, BNP, HS TROP, CKMB, CK, CBC, PTT, PT #### [facility] [address] Glucose [Mass/Vol] 124 mg/dL High 70-100 [facility] Comment on above: Result Comment: [place] Glucose Reference Range is dependent on time and content of last meal. Glucose of more than 200 mg/dL in a nonstressed, ambulatory subject supports the diagnosis of Diabetes Mellitus. ADA recommended reference range Performed By: #### D DIMER, BMP, BNP, HS TROP, CKMB, CK, CBC, PTT, PT #### [facility] [address] Potassium [Moles/Vol] 3.9 mmol/L Normal 3.5-5.1 [facility] Comment on above: Performed By: #### D DIMER, BMP, BNP, HS TROP, CKMB, CK, CBC, PTT, PT #### [facility] [address] Sodium [Moles/Vol] 130 mmol/L Low 136-146 [facility] Comment on above: Performed By: #### D DIMER, BMP, BNP, HS TROP, CKMB, CK, CBC, PTT, PT #### [facility] [address] Urea nitrogen [Mass/Vol] 18 mg/dL Normal 9-23 [facility] Comment on above: Performed By: #### D DIMER, BMP, BNP, HS TROP, CKMB, CK, CBC, PTT, PT #### [facility] [address] Complete Blood Count Auto Di ffon 01-02-2022 Basophils (Bld) [#/Vol] 0.1 10*3/uL Normal 0.0-0.2 [facility] Comment on above: Result Comment: PERF ORMED BY: [place] [address] PATHOLOGIST WE[employer]SPH[employer] DEVELOPER NICHOLE BOLDEN M.D. Performed By: #### D DIMER, BMP, BNP, HS TROP, CKMB, CK, CBC, PTT, PT #### [facility] [address] Basophils/100 WBC (Bld) 0.6 % Normal . [facility] Comment on above: Performed By: #### D DIMER, BMP, BNP, HS TROP, CKMB, CK, CBC, PTT, PT #### [address] Eosinophils (Bld) [#/Vol] 0.0 10*3/uL Normal 0.0-0.45 [facility] Comment on above: Performed By: #### D DIMER, BMP, BNP, HS TROP, CKMB, CK, CBC, PTT, PT #### [address] Eosinophils/100 WBC (Bld) 0.3 % Normal . [facility] Comment on above: Performed By: #### D DIMER, BMP, BNP, HS TROP, CKMB, CK, CBC, PTT, PT #### [address] Erythrocyte distribution width (RBC) [Ratio] 13.6 % Normal 12.0-14.8 [facility] Comment on above: Performed By: #### D DIMER, BMP, BNP, HS TROP, CKMB, CK, CBC, PTT, PT #### [address] Hematocrit (Bld) [Volume fraction] 36.6 % Low 38.8-50.0 [facility] Comment on above: Performed By: #### D DIMER, BMP, BNP, HS TROP, CKMB, CK, CBC, PTT, PT #### [address] Hemoglobin (Bld) [Mass/Vol] 12.4 g/dL Low 13.0-17.0 [facility] Comment on above: Performed By: #### D DIMER, BMP, BNP, HS TROP, CKMB, CK, CBC, PTT, PT #### [address] Lymphocytes (Bld) [#/Vol] 0.8 10*3/uL Low 1.00-4.8 [facility] Comment on above: Performed By: #### D DIMER, BMP, BNP, HS TROP, CKMB, CK, CBC, PTT, PT #### [address] Lymphocytes/100 WBC (Bld) 9.0 % Normal . [facility] Comment on above: Performed By: #### D DIMER, BMP, BNP, HS TROP, CKMB, CK, CBC, PTT, PT #### [address] MCH (RBC) [Entitic mass] 32.8 pg Normal 27.5-35.2 [facility] Comment on above: Performed By: #### D DIMER, BMP, BNP, HS TROP, CKMB, CK, CBC, PTT, PT #### [address] MCV (RBC) [Entitic vol] 97.0 fL Normal 83.5-101 [facility] Comment on above: Performed By: #### D DIMER, BMP, BNP, HS TROP, CKMB, CK, CBC, PTT, PT #### [address] Mean Corpuscular HGB Conc 33.8 g/dL Normal 32.5-35.6 [facility] Comment on above: Performed By: #### D DIMER, BMP, BNP, HS TROP, CKMB, CK, CBC, PTT, PT #### [address] Monocytes (Bld) [#/Vol] 1.0 10*3/uL High 0.0-0.8 [facility] Comment on above: Performed By: #### D DIMER, BMP, BNP, HS TROP, CKMB, CK, CBC, PTT, PT #### [address] Monocytes/100 WBC (Bld) 11.1 % Normal . [facility] Comment on above: Performed By: #### D DIMER, BMP, BNP, HS TROP, CKMB, CK, CBC, PTT, PT #### [address] Neutrophils (Bld) [#/Vol] 7.4 10*3/uL Normal 1.8-7.7 [facility] Comment on above: Performed By: #### D DIMER, BMP, BNP, HS TROP, CKMB, CK, CBC, PTT, PT #### [address] Neutrophils/100 WBC (Bld) 79.0 % Normal . [facility] Comment on above: Performed By: #### D DIMER, BMP, BNP, HS TROP, CKMB, CK, CBC, PTT, PT #### [address] Nucleated RBC/100 WBC (Bld) [Ratio] 0.0 % Normal 0-0.5 [facility] Comment on above: Performed By: #### D DIMER, BMP, BNP, HS TROP, CKMB, CK, CBC, PTT, PT #### [address] Platelet mean volume (Bld) [Entitic vol] 9.9 fL Normal 6.6-10.1 [facility] Comment on above: Performed By: #### D DIMER, BMP, BNP, HS TROP, CKMB, CK, CBC, PTT, PT #### [address] Platelets (Bld) [#/Vol] 200 10*3/uL Normal 150-450 [facility] Comment on above: Performed By: #### D DIMER, BMP, BNP, HS TROP, CKMB, CK, CBC, PTT, PT #### [address] RBC (Bld) [#/Vol] 3.77 10*6/uL Low 3.90-5.60 [facility] Comment on above: Performed By: #### D DIMER, BMP, BNP, HS TROP, CKMB, CK, CBC, PTT, PT #### [facility] [address] [place] [id number] [facility] WBC (Bld) [#/Vol] 9.4 10*3/uL Normal 4.5-11.0 [facility] Comment on above: Performed By: #### D DIMER, BMP, BNP, HS TROP, CKMB, CK, CBC, PTT, PT #### [facility] [address] [place] [id number] [facility] ECG 12 lead ECGon 01-02-2022 ECG 12 lead ECG [facility] [place] [address] [place] [address] Electrocardiograph Report Signed Patient: Esa Leavitt MR#: [id number] 623 : 1935 Acct:[id number] Age/Sex: 86 / M ADM Date: 01/01/22 Loc: Room: [address] [place] [address] Type: DIS IN Attending Dr: Mohsen Muniz MD Ordering Provider: Demetra Downey MD, [facility] Date of Service: 01/02/22 ECG/ECG 12 lead [...] AV dissociation rhythm Confirmed by NASREEN JOHNS [facility] ([id number][facility] on 01/03/2022 1:16:00 PM Referred By: Electronically Signed By:DEMETRA DOWNEY MD [facility] Transcribed By: MUS Signed By Demetra Downey MD, [facility] 01/03/22 1316 [facility] Glucose Poct Glucometerson 0 01-02-2022 Glucose [Mass/Vol] 134 mg/dL Normal [facility] Comment on above: Result Comment: [facility] Glucose Reference Range is dependent on time and content of last meal. Glucose of more than 200 mg/dL in a nonstressed, ambulatory subject supports the diagnosis of Diabetes Mellitus. PERFORMED BY: [place] [address] PATHOLOGIST WEBSPHERE DEVELOPER NICHOLE BOLDEN M.D. Performed By: #### D DIMER, BMP, BNP, HS TROP, CKMB, CK, CBC, PTT, PT #### [address] Commemt1 Glu2: Cleaned Meter [facility] Comment on above: Result Comment: PERF ORMED BY: [place] [address] PATHOLOGIST WEBSPHERE DEVELOPER NICHOLE BOLDEN M.D. Performed By: #### D DIMER, BMP, BNP, HS TROP, CKMB, CK, CBC, PTT, PT #### [address] Glucose [Mass/Vol] 142 mg/dL Normal [facility] Comment on above: Result Comment: [place] om Glucose Reference Range is dependent on time and content of last meal. Glucose of more than 200 mg/dL in a nonstressed, ambulatory subject supports the diagnosis of Diabetes Mellitus. Performed By: #### D DIMER, BMP, BNP, HS TROP, CKMB, CK, CBC, PTT, PT #### [address] Commemt1 Glu2: Cleaned Meter [facility] Comment on above: Result Comment: PERF ORMED BY: [place] [address] PATHOLOGIST WEBSPHERE DEVELOPER NICHOLE BOLDEN M.D. Performed By: #### D DIMER, BMP, BNP, HS TROP, CKMB, CK, CBC, PTT, PT #### [address] Glucose [Mass/Vol] 144 mg/dL Normal [facility] Comment on above: Result Comment: [place] om Glucose Reference Range is dependent on time and content of last meal. Glucose of more than 200 mg/dL in a nonstressed, ambulatory subject supports the diagnosis of Diabetes Mellitus. Performed By: #### D DIMER, BMP, BNP, HS TROP, CKMB, CK, CBC, PTT, PT #### [facility] [address] Glucose [Mass/Vol] 129 mg/dL Normal [facility] Comment on above: Result Comment: [facility] Glucose Reference Range is dependent on time and content of last meal. Glucose of more than 200 mg/dL in a nonstressed, ambulatory subject supports the diagnosis of Diabetes Mellitus. PERFORMED BY: [place] [address] PATHOLOGIST WEBSPHERE DEVELOPER NICHOLE BOLDEN M.D. Performed By: #### D DIMER, BMP, BNP, HS TROP, CKMB, CK, CBC, PTT, PT #### [place] [id number] [facility] Automated erythrocytes count in urine sediment (number/area)Ordered By: Ronit Caruso on 01-01-2022 RBC Auto (Urine sed) [#/Area] 0-1 [HPF] 0-4 [facility] Automated leukocytes count i n urine sediment (number/area)Ordered By: Ronit Caruso on 01-01-2022 WBC Auto (Urine sed) [#/Area] None seen [HPF] 0-4 [facility] B-Type Natriuretic Peptideon 01-01-2022 Natriuretic peptide B (Bld) [Mass/Vol] 157.0 pg/mL High 5-100 [facility] Comment on above: Result Comment: PERF ORMED BY: [place] [address] PATHOLOGIST WEBSPH[employer] DEVELOPER NICHOLE BOLDEN M.D. Performed By: #### D DIMER, BMP, BNP, HS TROP, CKMB, CK, CBC, PTT, PT #### [place] [id number] [facility] Basic Metabolic Panelon 12-07 Calcium [Mass/Vol] 9.0 mg/dL Normal 8.2-10.2 [facility] Comment on above: Result Comment: PERF ORMED BY: [place] [address] PATHOLOGIST WEBSPHERE DEVELOPER NICHOLE BOLDEN M.D. Performed By: #### D DIMER, BMP, BNP, HS TROP, CKMB, CK, CBC, PTT, PT #### [facility] [address] Chloride [Moles/Vol] 92 mmol/L Low 95-114 [facility] Comment on above: Performed By: #### D DIMER, BMP, BNP, HS TROP, CKMB, CK, CBC, PTT, PT #### [facility] [address] CO2 [Moles/Vol] 23.3 mmol/L Normal 22.0-30.0 [facility] Comment on above: Performed By: #### D DIMER, BMP, BNP, HS TROP, CKMB, CK, CBC, PTT, PT #### [address] Creatinine [Mass/Vol] 0.59 mg/dL Low 0.64-1.27 [facility] Comment on above: Performed By: #### D DIMER, BMP, BNP, HS TROP, CKMB, CK, CBC, PTT, PT #### [facility] [address] Estimated GFR ( Uzma > 60 [facility] Comment on above: Result Comment: GFR estimated reference range: According to KDOQI guidelines, <60 ml/min/1.73m2 is sufficient to diagnose a patient with chronic kidney disease. Performed By: #### D DIMER, BMP, BNP, HS TROP, CKMB, CK, CBC, PTT, PT #### [facility] [address] Estimated GFR (Non- Am > 60 [facility] Comment on above: Performed By: #### D DIMER, BMP, BNP, HS TROP, CKMB, CK, CBC, PTT, PT #### [facility] [address] Glucose [Mass/Vol] 194 mg/dL High 70-100 [facility] Comment on above: Result Comment: [place] [facility] Glucose Reference Range is dependent on time and content of last meal. Glucose of more than 200 mg/dL in a nonstressed, ambulatory subject supports the diagnosis of Diabetes Mellitus. ADA recommended reference range Performed By: #### D DIMER, BMP, BNP, HS TROP, CKMB, CK, CBC, PTT, PT #### [facility] [address] Potassium [Moles/Vol] 3.5 mmol/L Normal 3.5-5.1 [facility] Comment on above: Performed By: #### D DIMER, BMP, BNP, HS TROP, CKMB, CK, CBC, PTT, PT #### [facility] [address] Sodium [Moles/Vol] 133 mmol/L Low 136-146 [facility] Comment on above: Performed By: #### D DIMER, BMP, BNP, HS TROP, CKMB, CK, CBC, PTT, PT #### [facility] [address] Urea nitrogen [Mass/Vol] 15 mg/dL Normal 9-23 [facility] Comment on above: Performed By: #### D DIMER, BMP, BNP, HS TROP, CKMB, CK, CBC, PTT, PT #### [address] Bilirubin Test strip Ql (U)O rdered By: Ronit Caruso on 01-01-2022 Bilirubin Ql (U) Negative Negative [facility] Blood Cultureon 01-01-2022 Bacteria identified Cx Nom (Bld) NO GROWTH 5 DAYS PERFORMED BY: [place] [address] PATHOLOGIST WEBSPHERE DEVELOPER NICHOLE BOLDEN M.D. [facility] Comment on above: Performed By: #### D DIMER, BMP, BNP, HS TROP, CKMB, CK, CBC, PTT, PT #### [address] Bacteria identified Cx Nom (Bld) NO GROWTH 5 DAYS PERFORMED BY: [place] [address] PATHOLOGIST WEBSPHERE DEVELOPER NICHOLE BOLDEN M.D. [facility] Comment on above: Performed By: #### D DIMER, BMP, BNP, HS TROP, CKMB, CK, CBC, PTT, PT #### [place] [id number] [facility] COVID-19 Antigenon 2 COVID-19 Antigen Healthcare Worker?: [...] developed and its performance characteristic determined by [employer] and validated at [facility]. This test has not been FDA [...] for SARS Antigen by GEREMIAS PERFORMED BY: [facility] [address] [place] [address] PATHOLOGIST WEBSPHERE DEVELOPER NICHOLE BOLDEN M.D. Normal [facility] Comment on above: Performed By: #### D DIMER, BMP, BNP, HS TROP, CKMB, CK, CBC, PTT, PT #### [facility] [address] [place], [place] [id number] [facility] COVID-19 [facility] [place] SARS-CoV-2 (COVID-19) RNA JEFF+probe Ql (Unsp spec) Negative Normal Negative [facility] Comment on above: Order Comment: Healt hcare Worker?: N Result Comment: Testing for SARS-CoV-2 by RT-PCR This test was developed and its performance characteristics determined by [employer] (AMS-Qi) and validated at the [facility]. This test has not been FDA [...] is terminated or revoked sooner. PERFORMED BY: [place] [address] PATHOLOGIST WEBSPHERE DEVELOPER NICHOLE BOLDEN M.D. Performed By: #### D DIMER, BMP, BNP, HS TROP, CKMB, CK, CBC, PTT, PT #### [address] [address] [facility] CT chest w [facility] 01-01-2022 CT chest w [facility] [place] [address] [place] [address] CT Scan Report Signed Patient: Esa Leavitt MR#: [id number] 623 : 1935 Acct:[id number] Age/Sex: 86 / M ADM Date: 01/01/22 Loc: Room: [address] [place] [address] Type: ADM IN Attending Dr: Ronit Caruso [...] Brooks Easley M.D.01/01/2022 6:24 PM Dictation Location: [place] [address] Transcribed By: [facility] 01/01/221823 Dictated By: Brooks Easley DO 01/01/221816 Signed By: 01/01/221823 [facility] Color Auto (U)Ordered By: Kyle Caruso on 01-01-2022 Color (U) Bell Yellow [facility] Complete Blood Count Auto Di ffon 01-01-2022 Basophils (Bld) [#/Vol] 0.0 10*3/uL Normal 0.0-0.2 [facility] Comment on above: Result Comment: PERF ORMED BY: [place] [address] PATHOLOGIST WEBSPHERE DEVELOPER NICHOLE BOLDEN M.D. Performed By: #### D DIMER, BMP, BNP, HS TROP, CKMB, CK, CBC, PTT, PT #### [address] Basophils/100 WBC (Bld) 0.2 % Normal . [facility] Comment on above: Performed By: #### D DIMER, BMP, BNP, HS TROP, CKMB, CK, CBC, PTT, PT #### [address] Eosinophils (Bld) [#/Vol] 0.0 10*3/uL Normal 0.0-0.45 [facility] Comment on above: Performed By: #### D DIMER, BMP, BNP, HS TROP, CKMB, CK, CBC, PTT, PT #### [address] Eosinophils/100 WBC (Bld) 0.0 % Normal . [facility] Comment on above: Performed By: #### D DIMER, BMP, BNP, HS TROP, CKMB, CK, CBC, PTT, PT #### [address] Erythrocyte distribution width (RBC) [Ratio] 13.4 % Normal 12.0-14.8 [facility] Comment on above: Performed By: #### D DIMER, BMP, BNP, HS TROP, CKMB, CK, CBC, PTT, PT #### [address] Hematocrit (Bld) [Volume fraction] 37.4 % Low 38.8-50.0 [facility] Comment on above: Performed By: #### D DIMER, BMP, BNP, HS TROP, CKMB, CK, CBC, PTT, PT #### [place] [id number] [place] Hemoglobin (Bld) [Mass/Vol] 12.5 g/dL Low 13.0-17.0 [facility] Comment on above: Performed By: #### D DIMER, BMP, BNP, HS TROP, CKMB, CK, CBC, PTT, PT #### [address] Lymphocytes (Bld) [#/Vol] 0.6 10*3/uL Low 1.00-4.8 [facility] Comment on above: Performed By: #### D DIMER, BMP, BNP, HS TROP, CKMB, CK, CBC, PTT, PT #### [address] Lymphocytes/100 WBC (Bld) 3.7 % Normal . [facility] Comment on above: Performed By: #### D DIMER, BMP, BNP, HS TROP, CKMB, CK, CBC, PTT, PT #### [address] MCH (RBC) [Entitic mass] 32.3 pg Normal 27.5-35.2 [facility] Comment on above: Performed By: #### D DIMER, BMP, BNP, HS TROP, CKMB, CK, CBC, PTT, PT #### [address] MCV (RBC) [Entitic vol] 97.1 fL Normal 83.5-101 F [facility] Comment on above: Performed By: #### D DIMER, BMP, BNP, HS TROP, CKMB, CK, CBC, PTT, PT #### [address] Mean Corpuscular HGB Conc 33.3 g/dL Normal 32.5-35.6 [facility] Comment on above: Performed By: #### D DIMER, BMP, BNP, HS TROP, CKMB, CK, CBC, PTT, PT #### [address] Monocytes (Bld) [#/Vol] 1.5 10*3/uL High 0.0-0.8 [facility] Comment on above: Performed By: #### D DIMER, BMP, BNP, HS TROP, CKMB, CK, CBC, PTT, PT #### [facility] [address] [place] [address] [place] Monocytes/100 WBC (Bld) 9.3 % Normal . [facility] Comment on above: Performed By: #### D DIMER, BMP, BNP, HS TROP, CKMB, CK, CBC, PTT, PT #### [address] Neutrophils (Bld) [#/Vol] 13.8 10*3/uL High 1.8-7.7 [facility] Comment on above: Performed By: #### D DIMER, BMP, BNP, HS TROP, CKMB, CK, CBC, PTT, PT #### [address] Neutrophils/100 WBC (Bld) 86.8 % Normal . [facility] Comment on above: Performed By: #### D DIMER, BMP, BNP, HS TROP, CKMB, CK, CBC, PTT, PT #### [address] Nucleated RBC/100 WBC (Bld) [Ratio] 0.0 % Normal 0-0.5 [facility] Comment on above: Performed By: #### D DIMER, BMP, BNP, HS TROP, CKMB, CK, CBC, PTT, PT #### [address] Platelet mean volume (Bld) [Entitic vol] 9.7 fL Normal 6.6-10.1 [facility] Comment on above: Performed By: #### D DIMER, BMP, BNP, HS TROP, CKMB, CK, CBC, PTT, PT #### [address] Platelets (Bld) [#/Vol] 228 10*3/uL Normal 150-450 [facility] Comment on above: Performed By: #### D DIMER, BMP, BNP, HS TROP, CKMB, CK, CBC, PTT, PT #### [address] RBC (Bld) [#/Vol] 3.86 10*6/uL Low 3.90-5.60 [facility] Comment on above: Performed By: #### D DIMER, BMP, BNP, HS TROP, CKMB, CK, CBC, PTT, PT #### [address] WBC (Bld) [#/Vol] 15.9 10*3/uL High 4.5-11.0 [facility] Comment on above: Performed By: #### D DIMER, BMP, BNP, HS TROP, CKMB, CK, CBC, PTT, PT #### [address] Basophils (Bld) [#/Vol] 0.0 10*3/uL Normal 0.0-0.2 [facility] Comment on above: Result Comment: PERF ORMED BY: [place] [address] PATHOLOGIST WEBSPHERE DEVELOPER NICHOLE BOLDEN M.D. Performed By: #### D DIMER, BMP, BNP, HS TROP, CKMB, CK, CBC, PTT, PT #### [address] Basophils/100 WBC (Bld) 0.3 % Normal . [facility] Comment on above: Performed By: #### D DIMER, BMP, BNP, HS TROP, CKMB, CK, CBC, PTT, PT #### [address] Eosinophils (Bld) [#/Vol] 0.0 10*3/uL Normal 0.0-0.45 [facility] Comment on above: Performed By: #### D DIMER, BMP, BNP, HS TROP, CKMB, CK, CBC, PTT, PT #### [address] Eosinophils/100 WBC (Bld) 0.2 % Normal . [facility] Comment on above: Performed By: #### D DIMER, BMP, BNP, HS TROP, CKMB, CK, CBC, PTT, PT #### [address] Erythrocyte distribution width (RBC) [Ratio] 13.3 % Normal 12.0-14.8 [facility] Comment on above: Performed By: #### D DIMER, BMP, BNP, HS TROP, CKMB, CK, CBC, PTT, PT #### [address] Hematocrit (Bld) [Volume fraction] 38.5 % Low 38.8-50.0 [facility] Comment on above: Performed By: #### D DIMER, BMP, BNP, HS TROP, CKMB, CK, CBC, PTT, PT #### [address] Hemoglobin (Bld) [Mass/Vol] 12.7 g/dL Low 13.0-17.0 [facility] Comment on above: Performed By: #### D DIMER, BMP, BNP, HS TROP, CKMB, CK, CBC, PTT, PT #### [address] Lymphocytes (Bld) [#/Vol] 0.6 10*3/uL Low 1.00-4.8 [facility] Comment on above: Performed By: #### D DIMER, BMP, BNP, HS TROP, CKMB, CK, CBC, PTT, PT #### [address] Lymphocytes/100 WBC (Bld) 4.3 % Normal . [facility] Comment on above: Performed By: #### D DIMER, BMP, BNP, HS TROP, CKMB, CK, CBC, PTT, PT #### [address] MCH (RBC) [Entitic mass] 32.0 pg Normal 27.5-35.2 [facility] Comment on above: Performed By: #### D DIMER, BMP, BNP, HS TROP, CKMB, CK, CBC, PTT, PT #### [address] [place] [address] [place] MCV (RBC) [Entitic vol] 97.4 fL Normal 83.5-101 F [facility] Comment on above: Performed By: #### D DIMER, BMP, BNP, HS TROP, CKMB, CK, CBC, PTT, PT #### [facility] [address] Mean Corpuscular HGB Conc 32.9 g/dL Normal 32.5-35.6 [facility] Comment on above: Performed By: #### D DIMER, BMP, BNP, HS TROP, CKMB, CK, CBC, PTT, PT #### [facility] [address] Monocytes (Bld) [#/Vol] 0.9 10*3/uL High 0.0-0.8 [facility] Comment on above: Performed By: #### D DIMER, BMP, BNP, HS TROP, CKMB, CK, CBC, PTT, PT #### [facility] [address] Monocytes/100 WBC (Bld) 6.6 % Normal . [facility] Comment on above: Performed By: #### D DIMER, BMP, BNP, HS TROP, CKMB, CK, CBC, PTT, PT #### [facility] [address] Neutrophils (Bld) [#/Vol] 12.3 10*3/uL High 1.8-7.7 [facility] Comment on above: Performed By: #### D DIMER, BMP, BNP, HS TROP, CKMB, CK, CBC, PTT, PT #### [facility] [address] Neutrophils/100 WBC (Bld) 88.6 % Normal . [facility] Comment on above: Performed By: #### D DIMER, BMP, BNP, HS TROP, CKMB, CK, CBC, PTT, PT #### [facility] [address] [place] [address] [place] Nucleated RBC/100 WBC (Bld) [Ratio] 0.1 % Normal 0-0.5 [facility] Comment on above: Performed By: #### D DIMER, BMP, BNP, HS TROP, CKMB, CK, CBC, PTT, PT #### [address] Platelet mean volume (Bld) [Entitic vol] 8.7 fL Normal 6.6-10.1 [facility] Comment on above: Performed By: #### D DIMER, BMP, BNP, HS TROP, CKMB, CK, CBC, PTT, PT #### [address] Platelets (Bld) [#/Vol] 254 10*3/uL Normal 150-450 [facility] Comment on above: Performed By: #### D DIMER, BMP, BNP, HS TROP, CKMB, CK, CBC, PTT, PT #### [address] RBC (Bld) [#/Vol] 3.96 10*6/uL Normal 3.90-5.60 [facility] Comment on above: Performed By: #### D DIMER, BMP, BNP, HS TROP, CKMB, CK, CBC, PTT, PT #### [address] WBC (Bld) [#/Vol] 13.8 10*3/uL High 4.5-11.0 [facility] Comment on above: Performed By: #### D DIMER, BMP, BNP, HS TROP, CKMB, CK, CBC, PTT, PT #### [address] Comprehensive Metabolic Pane ritika 01-01-2022 Albumin [Mass/Vol] 3.4 g/dL Normal 3.2-5.5 [facility] Comment on above: Performed By: #### D DIMER, BMP, BNP, HS TROP, CKMB, CK, CBC, PTT, PT #### [address] Albumin/Globulin [Mass ratio] 1.2 {ratio} Normal [facility] Comment on above: Performed By: #### D DIMER, BMP, BNP, HS TROP, CKMB, CK, CBC, PTT, PT #### [address] ALP [Catalytic activity/Vol] 45 U/L Normal 32-92 [facility] Comment on above: Performed By: #### D DIMER, BMP, BNP, HS TROP, CKMB, CK, CBC, PTT, PT #### [address] ALT [Catalytic activity/Vol] 13 U/L Normal 10-60 [facility] Comment on above: Performed By: #### D DIMER, BMP, BNP, HS TROP, CKMB, CK, CBC, PTT, PT #### [address] AST [Catalytic activity/Vol] 18 U/L Normal 10-42 [facility] Comment on above: Performed By: #### D DIMER, BMP, BNP, HS TROP, CKMB, CK, CBC, PTT, PT #### [address] Bilirubin [Mass/Vol] 1.1 mg/dL Normal 0.3-1.2 [facility] Comment on above: Performed By: #### D DIMER, BMP, BNP, HS TROP, CKMB, CK, CBC, PTT, PT #### [address] Calcium [Mass/Vol] 8.9 mg/dL Normal 8.2-10.2 [facility] Comment on above: Performed By: #### D DIMER, BMP, BNP, HS TROP, CKMB, CK, CBC, PTT, PT #### [address] Chloride [Moles/Vol] 91 mmol/L Low 95-114 [facility] Comment on above: Performed By: #### D DIMER, BMP, BNP, HS TROP, CKMB, CK, CBC, PTT, PT #### [address] CO2 [Moles/Vol] 30.0 mmol/L Normal 22.0-30.0 [facility] Comment on above: Performed By: #### D DIMER, BMP, BNP, HS TROP, CKMB, CK, CBC, PTT, PT #### [facility] [address] Creatinine [Mass/Vol] 0.70 mg/dL Normal 0.64-1.27 [facility] Comment on above: Performed By: #### D DIMER, BMP, BNP, HS TROP, CKMB, CK, CBC, PTT, PT #### [address] Creatinine Clr Calc Pharmacy 62.94 [facility] Comment on above: Performed By: #### D DIMER, BMP, BNP, HS TROP, CKMB, CK, CBC, PTT, PT #### [address] Estimated GFR ( Uzma > 60 [facility] Comment on above: Result Comment: GFR estimated reference range: According to KDOQI guidelines, <60 ml/min/1.73m2 is sufficient to diagnose a patient with chronic kidney disease. Performed By: #### D DIMER, BMP, BNP, HS TROP, CKMB, CK, CBC, PTT, PT #### [address] Estimated GFR (Non- Am > 60 [facility] Comment on above: Performed By: #### D DIMER, BMP, BNP, HS TROP, CKMB, CK, CBC, PTT, PT #### [address] Globulin (S) [Mass/Vol] 2.9 g/dL Normal [facility] Comment on above: Performed By: #### D DIMER, BMP, BNP, HS TROP, CKMB, CK, CBC, PTT, PT #### [address] Glucose [Mass/Vol] 170 mg/dL High 70-100 [facility] Comment on above: Result Comment: [facility] Glucose Reference Range is dependent on time and content of last meal. Glucose of more than 200 mg/dL in a nonstressed, ambulatory subject supports the diagnosis of Diabetes Mellitus. ADA recommended reference range Performed By: #### D DIMER, BMP, BNP, HS TROP, CKMB, CK, CBC, PTT, PT #### [address] Potassium [Moles/Vol] 3.8 mmol/L Normal 3.5-5.1 [facility] Comment on above: Performed By: #### D DIMER, BMP, BNP, HS TROP, CKMB, CK, CBC, PTT, PT #### [address] Protein [Mass/Vol] 6.3 g/dL Normal 6.1-7.9 [facility] Comment on above: Performed By: #### D DIMER, BMP, BNP, HS TROP, CKMB, CK, CBC, PTT, PT #### [address] Sodium [Moles/Vol] 131 mmol/L Low 136-146 [facility] Comment on above: Performed By: #### D DIMER, BMP, BNP, HS TROP, CKMB, CK, CBC, PTT, PT #### [address] Urea nitrogen [Mass/Vol] 19 mg/dL Normal 9-23 [facility] Comment on above: Performed By: #### D DIMER, BMP, BNP, HS TROP, CKMB, CK, CBC, PTT, PT #### [address] Creatine Kinaseon 01-01-2022 CK [Catalytic activity/Vol] 74 U/L Normal 22-269 [facility] Comment on above: Performed By: #### D DIMER, BMP, BNP, HS TROP, CKMB, CK, CBC, PTT, PT #### [address] Creatinine Kinase MBon 01-01 CK.MB [Mass/Vol] 3.5 ng/mL Normal 0.6-6.3 [facility] Comment on above: Performed By: #### D DIMER, BMP, BNP, HS TROP, CKMB, CK, CBC, PTT, PT #### [address] CKMB Relative Index 4.7 % High 0.00-2.50 [facility] Comment on above: Performed By: #### D DIMER, BMP, BNP, HS TROP, CKMB, CK, CBC, PTT, PT #### [address] D-Dimer High Sensitivityon 0 01-01-2022 D-Dimer High Sensitivity 280 ng/mL High 0-243 [facility] Comment on above: Result Comment: The [...] patients due to co-morbid conditions. PERFORMED BY: [place] [address] PATHOLOGIST WEBSPHERE DEVELOPER NICHOLE BOLDEN M.D. Performed By: #### D DIMER, BMP, BNP, HS TROP, CKMB, CK, CBC, PTT, PT #### [address] Dipstick and Microscopicon 0 01-01-2022 Appearance (U) Clear Normal Clear [facility] Comment on above: Order Comment: Name Collection Type:: Clean-Voided Midstream Performed By: #### D DIMER, BMP, BNP, HS TROP, CKMB, CK, CBC, PTT, PT #### [address] Bacteria,Urine None Seen Normal None Seen [facility] Comment on above: Order Comment: Name Collection Type:: Clean-Voided Midstream Performed By: #### D DIMER, BMP, BNP, HS TROP, CKMB, CK, CBC, PTT, PT #### [place] [address] [place] Bilirubin,Urine Negative Normal Negative [facility] Comment on above: Order Comment: Name Collection Type:: Clean-Voided Midstream Performed By: #### D DIMER, BMP, BNP, HS TROP, CKMB, CK, CBC, PTT, PT #### [address] Color (U) Bell Critically abnormal Yellow [facility] Comment on above: Order Comment: Name Collection Type:: Clean-Voided Midstream Performed By: #### D DIMER, BMP, BNP, HS TROP, CKMB, CK, CBC, PTT, PT #### [address] Glucose Ql (U) Normal Normal Normal [facility] Comment on above: Order Comment: Name Collection Type:: Clean-Voided Midstream Performed By: #### D DIMER, BMP, BNP, HS TROP, CKMB, CK, CBC, PTT, PT #### [address] Hyaline Casts,Urine 0-8 Normal 0-8 [facility] Comment on above: Order Comment: Name Collection Type:: Clean-Voided Midstream Result Comment: PERF ORMED BY: [place] [address] PATHOLOGIST WEBSPHERE DEVELOPER NICHOLE BOLDEN M.D. Performed By: #### D DIMER, BMP, BNP, HS TROP, CKMB, CK, CBC, PTT, PT #### [address] Ketones Ql (U) Negative Normal Negative [facility] Comment on above: Order Comment: Name Collection Type:: Clean-Voided Midstream Performed By: #### D DIMER, BMP, BNP, HS TROP, CKMB, CK, CBC, PTT, PT #### [address] Leukocyte esterase Test strip Ql (U) Negative Normal Negative [facility] Comment on above: Order Comment: Name Collection Type:: Clean-Voided Midstream Performed By: #### D DIMER, BMP, BNP, HS TROP, CKMB, CK, CBC, PTT, PT #### [address] Nitrite,Urine Negative Normal Negative [facility] Comment on above: Order Comment: Name Collection Type:: Clean-Voided Midstream Performed By: #### D DIMER, BMP, BNP, HS TROP, CKMB, CK, CBC, PTT, PT #### [address] Occult Blood,Urine Negative Normal Negative [facility] Comment on above: Order Comment: Name Collection Type:: Clean-Voided Midstream Result Comment: PERF ORMED BY: [place] [address] PATHOLOGIST WEBSPHERE DEVELOPER NICHOLE BOLDEN M.D. Performed By: #### D DIMER, BMP, BNP, HS TROP, CKMB, CK, CBC, PTT, PT #### [address] pH (U) 5.5 [pH] Normal 5.0-9.0 [facility] Comment on above: Order Comment: Name Collection Type:: Clean-Voided Midstream Performed By: #### D DIMER, BMP, BNP, HS TROP, CKMB, CK, CBC, PTT, PT #### [address] Protein,Urine Negative Normal Negative [facility] Comment on above: Order Comment: Name Collection Type:: Clean-Voided Midstream Performed By: #### D DIMER, BMP, BNP, HS TROP, CKMB, CK, CBC, PTT, PT #### [address] RBC LM.HPF (Urine sed) [#/Area] 0 /[HPF] Normal 0-4 [facility] Comment on above: Order Comment: Name Collection Type:: Clean-Voided Midstream Performed By: #### D DIMER, BMP, BNP, HS TROP, CKMB, CK, CBC, PTT, PT #### [address] Specificy [place],Urine 1.020 Normal 1.001-1.030 [facility] Comment on above: Order Comment: Name Collection Type:: Clean-Voided Midstream Performed By: #### D DIMER, BMP, BNP, HS TROP, CKMB, CK, CBC, PTT, PT #### [address] Squamous Epithelial Cell,Urine 1-2 Normal 0-2 [facility] Comment on above: Order Comment: Name Collection Type:: Clean-Voided Midstream Performed By: #### D DIMER, BMP, BNP, HS TROP, CKMB, CK, CBC, PTT, PT #### [address] Urobilinogen,Urine Normal Normal Normal [facility] Comment on above: Order Comment: Name Collection Type:: Clean-Voided Midstream Performed By: #### D DIMER, BMP, BNP, HS TROP, CKMB, CK, CBC, PTT, PT #### [address] WBC,Urine None Seen Normal 0-4 [facility] Comment on above: Order Comment: Name Collection Type:: Clean-Voided Midstream Performed By: #### D DIMER, BMP, BNP, HS TROP, CKMB, CK, CBC, PTT, PT #### [address] ECG 12 lead ECGon 01-01-2022 ECG 12 lead ECG [place] [address] Electrocardiograph Report Signed Patient: Esa Leavitt MR#: [id number] 623 : 1935 Acct:[id number] Age/Sex: 86 / M ADM Date: 01/01/22 Loc: Room: [address] [place] [address] Type: DIS IN Attending Dr: Mohsen Muniz [...] ECG No previous ECGs available Confirmed by DEMETRA DOWNEY MD, FACC ([id number]) on 01/03/2022 1:15:10 PM Referred By: HOSP Electronically Signed By:DEMETRA DOWNEY MD [facility] Transcribed By: MUS Signed By Demetra Downey MD, [facility] 01/03/22 1315 [facility] ECG 12 lead ECG [place] [address] Electrocardiograph Report Signed Patient: Esa Leavitt MR#: [id number] 623 : 1935 Acct:[id number] Age/Sex: 86 / M ADM Date: 01/01/22 Loc: Room: [address] [place] [address] Type: DIS IN Attending Dr: Mohsen Muniz [...] By Bouchra Hugo MD 12/07 11/26 0137 [facility] ECH echo transthoracicon ECH echo transthoracic [facility] Main [address] [address] Echocardiogram Signed Patient: Esa Leavitt MR#: [id number] 623 : 1935 Acct:[id number] Age/Sex: 86 / M ADM Date: 01/01/22 Loc: Room: [address] [place] [address] Type: DIS IN Attending Dr: Mohsen Muniz MD Ordering Provider: Anabella Stone MD Date of Service: 01/01/22 ECH/ECH echo transthoracic: Chest Pain Copies to: MD Demetra Le MD, [facility] Weight: 157 lb Performed By: VERO Blum [...] mmHg RAP systole: 5.0 mmHg Transcribed By: SCV Performed At: 01/01/22 1031 Signed By: Demetra Downey MD, [facility] 01/02/22 1142 [facility] Free T4 (Free Thyroxine)on 0 01-01-2022 Free T4 [Mass/Vol] 0.95 ng/dL Normal 0.61-1.12 [facility] Comment on above: Performed By: #### D DIMER, BMP, BNP, HS TROP, CKMB, CK, CBC, PTT, PT #### [facility] [address] Glucose Poct Glucometerson 0 01-01-2022 Glucose [Mass/Vol] 159 mg/dL Normal [facility] Comment on above: Result Comment: [place] [facility] Glucose Reference Range is dependent on time and content of last meal. Glucose of more than 200 mg/dL in a nonstressed, ambulatory subject supports the diagnosis of Diabetes Mellitus. PERFORMED BY: [place] [address] PATHOLOGIST WEBSPHERE DEVELOPER NICHOLE BOLDEN M.D. Performed By: #### D DIMER, BMP, BNP, HS TROP, CKMB, CK, CBC, PTT, PT #### [address] Glucose [Mass/Vol] 130 mg/dL Normal [facility] Comment on above: Result Comment: [place] [facility] Glucose Reference Range is dependent on time and content of last meal. Glucose of more than 200 mg/dL in a nonstressed, ambulatory subject supports the diagnosis of Diabetes Mellitus. PERFORMED BY: [place] [address] PATHOLOGIST WEBSPHERE DEVELOPER NICHOLE BOLDEN M.D. Performed By: #### D DIMER, BMP, BNP, HS TROP, CKMB, CK, CBC, PTT, PT #### [address] Glucose [Mass/Vol] 176 mg/dL Normal [facility] Comment on above: Result Comment: [place] [facility] Glucose Reference Range is dependent on time and content of last meal. Glucose of more than 200 mg/dL in a nonstressed, ambulatory subject supports the diagnosis of Diabetes Mellitus. PERFORMED BY: [place] [address] PATHOLOGIST WEBSPHERE DEVELOPER NICHOLE BOLDEN M.D. Performed By: #### D DIMER, BMP, BNP, HS TROP, CKMB, CK, CBC, PTT, PT #### [place] [id number] [place] Glucose [Mass/Vol] 180 mg/dL Normal [facility] Comment on above: Result Comment: [facility] Glucose Reference Range is dependent on time and content of last meal. Glucose of more than 200 mg/dL in a nonstressed, ambulatory subject supports the diagnosis of Diabetes Mellitus. PERFORMED BY: [facility] [address] [place] [address] PATHOLOGIST WEBSPHERE DEVELOPER NICHOLE BOLDEN M.D. Performed By: #### G LULS #### Point of Care testing , Ketones Auto test strip (U) [Mass/Vol]Ordered By: Ronit Caruos on 01-01-2022 Ketones (U) [Mass/Vol] Negative Negative [facility] Laboratory - Chemistry and C hemistry - challengeOrdered By: Anabella Dunlap on 01-01-2022 Magnesium [Mass/Vol] 1.7 mg/dL 1.6-2.6 [facility] Laboratory - UrinalysisOrder ed By: Ronit Caruso on 01-01-2022 Hyaline casts LM Ql (Urine sed) 0-8 [LPF] 0-8 [facility] Magnesiumon 01-01-2022 Magnesium [Mass/Vol] 1.7 mg/dL Normal 1.6-2.6 [facility] Comment on above: Result Comment: PERF ORMED BY: [place] [address] PATHOLOGIST WEBSPHERE DEVELOPER NICHOLE BOLDEN M.D. Performed By: #### D DIMER, BMP, BNP, HS TROP, CKMB, CK, CBC, PTT, PT #### [facility] [address] [id number] [facility] Nitrite Test strip Ql (U)Ord ered By: Ronit Caruso on 01-01-2022 Nitrite Ql (U) Negative Negative [facility] No Panel InformationOrdered By: Bouchra Hugo on 01-01-2022 SARS Antigen (LFIA) [facility] Partial Thromboplastin Timeo n 01-01-2022 aPTT Coag (Bld) [Time] 29.3 s Normal 25.1-36.[address] [facility] Comment on above: Performed By: #### D DIMER, BMP, BNP, HS TROP, CKMB, CK, CBC, PTT, PT #### [facility] [address] Protein Auto test strip (U) [Mass/Vol]Ordered By: Ronit Caruso on 01-01-2022 Protein (U) [Mass/Vol] Negative Negative [facility] Prothrombin Time INRon 01-01 INR Coag (PPP) [Relative time] 1.1 {INR} Normal [facility] Comment on above: Result Comment: INR [...] CKMB, CK, CBC, PTT, PT #### [address] PT Coag (PPP) [Time] 12.6 s Normal 9.0-12.9 [facility] Comment on above: Performed By: #### D DIMER, BMP, BNP, HS TROP, CKMB, CK, CBC, PTT, PT #### [facility] [address] Ya Ag Negativeon 01-02-20 22 Ya Ag Negative Negative Normal Negative [facility] Comment on above: Result Comment: This is a duplicate Ya SARS Antigen (GEREMIAS) result to be used for statistical tracking purpose only. PERFORMED BY: [place] [address] PATHOLOGIST WEBSPHERE DEVELOPER NICHOLE BOLDEN M.D. Performed By: #### D DIMER, BMP, BNP, HS TROP, CKMB, CK, CBC, PTT, PT #### [address] Specific gravity Auto test s trip (U) [Rel density]Ordered By: Ronit Caruso on 01-01-2022 Specific gravity (U) [Rel density] 1.020 1.001-1.030 [facility] Squamous epithelial cells de tection in urine sediment by light microscopyOrdered By: Ronit Caruso on 01-01-2022 Epithelial cells.squamous LM Ql (Urine sed) 1-2 [HPF] 0-2 [facility] Thyroid Stimulating Hormoneo n 01-01-2022 TSH Qn 1.39 m[IU]/L Normal 0.45-5.33 [facility] Comment on above: Result Comment: PERF ORMED BY: [place] [address] PATHOLOGIST WEBSPHERE DEVELOPER NICHOLE BOLDEN M.D. Performed By: #### D DIMER, BMP, BNP, HS TROP, CKMB, CK, CBC, PTT, PT #### [facility] [address] [place] [address] [place] Troponin I High Sensitivityo n 01-01-2022 Troponin I High Sensitivity 8 pg/mL Normal 0-20 [facility] Comment on above: Result Comment: PERF ORMED BY: [place] [phone] PATHOLOGIST WEBSPHERE DEVELOPER NICHOLE BOLDEN M.D. Performed By: #### D DIMER, BMP, BNP, HS TROP, CKMB, CK, CBC, PTT, PT #### [facility] [address] [place] [address] Troponin I High Sensitivity 8 pg/mL Normal 0-20 [facility] Comment on above: Result Comment: PERF ORMED BY: [place] [address] PATHOLOGIST WEBSPHERE DEVELOPER NICHOLE BOLDEN M.D. Performed By: #### D DIMER, BMP, BNP, HS TROP, CKMB, CK, CBC, PTT, PT #### [facility] [address] [place] [address] [place] Troponin I High Sensitivity 5 pg/mL Normal 0-20 [facility] Comment on above: Result Comment: PERF ORMED BY: [place] [address] PATHOLOGIST WEBSPHERE DEVELOPER NICHOLE BOLDEN M.D. Performed By: #### D DIMER, BMP, BNP, HS TROP, CKMB, CK, CBC, PTT, PT #### [facility] [address] [place] [address] [place] Troponin I High Sensitivity 4 pg/mL Normal 0-20 [facility] Comment on above: Result Comment: PERF ORMED BY: [place] [address] PATHOLOGIST WEBSPHERE DEVELOPER NICHOLE BOLDEN M.D. Performed By: #### D DIMER, BMP, BNP, HS TROP, CKMB, CK, CBC, PTT, PT #### [facility] [address] [place], [place] [id number] [facility] Troponin I.cardiac [Mass/vol ume] in Serum or Plasma by High sensitivity methodOrdered By: Anabella Dunlap on 01-01-2022 Troponin I.cardiac High sensitivity method [Mass/Vol] 8 pg/mL 0-20 [facility] Urine bacteria detection by automated methodOrdered By: Ronit Caruso on 01-01-2022 Bacteria Auto Ql (U) None seen None Seen [facility] Urine clarity by refractomet ry automatedOrdered By: Ronit Caruso on 01-01-2022 Clarity Refractometry automated (U) Clear Clear [facility] Urine glucose measurement by automated test strip (mass/volume)Ordered By: Ronit Caruso on 01-01-2022 Glucose Auto test strip (U) [Mass/Vol] Normal mg/dL Normal [facility] Urine hemoglobin detection b y automated test stripOrdered By: Ronit Caruso on 01-01-2022 Hemoglobin Auto test strip Ql (U) Negative Negative [facility] Urine leukocyte esterase det ection by automated test stripOrdered By: Ronit Caruso on 01-01-2022 Leukocyte esterase Auto test strip Ql (U) Negative Negative [facility] Urobilinogen Auto test strip (U) [Mass/Vol]Ordered By: Ronit Caruso on 01-01-2022 Urobilinogen (U) [Mass/Vol] Normal mg/dL Normal [facility] XR chest 1V portableon 01-01 XR chest 1V portable [facility] [address] [place] [address] XRay Report Signed Patient: Esa Leavitt MR#: [id number] 623 : 1935 Acct:[id number] Age/Sex: 86 / M ADM Date: 01/01/22 Loc: Room: [address] [place] [address] Type: ADM IN Attending Dr: Ronit Caruso [...] Brooks Easley M.D.01/01/2022 8:02 AM Dictation Location: [place] [address] Transcribed By: [facility] 01/01/22801 Dictated By: Brooks Easley DO 01/01/22800 Signed By: 01/01/22 08 [facility] pH Auto test strip (U)Ordere d By: Ronit Caruso on 01-01-2022 pH (U) 5.5 [pH] 5.0-9.0 [facility] Activated partial thrombopla stin time (aPTT) in platelet poor plasma by coagulation aOrdered By: Bouchra Hugo on 12-31-2021 aPTT Coag (PPP) [Time] 29.3 s 25.1-36.[address] [facility] COVID-19 Positive/NegativeOr dered By: Bouchra Hugo on 12-31-2021 SARS-CoV-2 (COVID-19) N gene JEFF+probe Ql (Resp) Negative Negative [facility] Comment on above: Testing for SARS-CoV -2 by RT-PCR This test was developed and its performance characteristics determined by [employer] ([employer]) and validated at the [facility]. This test has not been FDA [...] (COVID-19) Ag IA.rapid Ql (Resp) Negative Negative [facility] Comment on above: This is a duplicate Ya SARS Antigen (GEREMIAS) result to be used for statistical tracking purpose only. Creatine kinase [Enzymatic a ctivity/volume] in Serum or PlasmaOrdered By: Bouchra Hugo on 12-31-2021 CK [Catalytic activity/Vol] 74 U/L 22-269 [facility] - Chemistry and C hemistry - challengeOrdered By: Bouchra Hugo on 12-31-2021 Natriuretic peptide B (Bld) [Mass/Vol] 157.0 pg/mL 5-100 [facility] - CoagulationOrde red By: Bouchra Hugo on 12-31-2021 PT Coag (PPP) [Time] 12.6 s 9.0-12.9 [facility] - Microbiology an d Antimicrobial susceptibilityOrdered By: Bouchra Hugo on 12-31-2021 SARS-CoV-2 (COVID-19) RNA JEFF+probe Ql (Unsp spec) N/A [facility] No Panel InformationOrdered By: Bouchra Hugo on 12-31-2021 D-Dimer Quantitative (PE/DVT) 280 ng/mL 0-243 [facility] Comment on above: The reference range [...] INR Coag (PPP) [Relative time] 1.1 {INR} [facility] Comment on above: INR Therapeutic Rang [...] CK.MB Calc [Catalytic fraction] 4.7 % 0.00-2.50 [facility] Serum or plasma creatine kin ase MB measurement (mass/volume)Ordered By: Bouchra Hugo on 12-31-2021 CK.MB [Mass/Vol] 3.5 ng/mL 0.6-6.3 [facility] Thyroxine (T4) free [Mass/vo lume] in Serum or PlasmaOrdered By: Anabella Dunlap on 12-31-2021 Free T4 [Mass/Vol] 0.95 ng/dL 0.61-1.12 [facility] Comprehensive Metabolic Pane ritika 10-07-2021 Albumin [Mass/Vol] 4.2 g/dL Normal 3.6-5.1 Luis E bentley [employer] Comment on above: Performed By: #### C MP #### [facility] [address] [place], [place] [id number] Albumin/Globulin [Mass ratio] 1.5 {ratio} Normal 1.0-2.5 [facility] Comment on above: Performed By: #### C MP #### [facility] [address] [place], [place] [id number] ALP [Catalytic activity/Vol] 74 U/L Normal 40-129 [facility] Comment on above: Performed By: #### C MP #### [facility] [address] [place], [place] [id number] ALT [Catalytic activity/Vol] 14 U/L Normal 9-46 [facility] Comment on above: Result Comment: 04/07 Female reference range changed. Performed By: #### C MP #### [facility] [address] [place], [place] [id number] Anion gap [Moles/Vol] 18 mmol/L Normal 12-20 [facility] Comment on above: Result Comment: Effe ctive 05/13/2019 reference range changed. Performed By: #### C MP #### [facility] [address] [place], [place] [id number] AST [Catalytic activity/Vol] 18 U/L Normal 10-40 [facility] Comment on above: Performed By: #### C MP #### [facility] [address] [place], [place] [id number] Bilirubin [Mass/Vol] 0.61 mg/dL Normal 0.30-1.20 [facility] Comment on above: Performed By: #### C MP #### [facility] [address] [place], [place] [id number] BUN/CREA 52 Ratio High 6-22 [facility] Comment on above: Performed By: #### C MP #### [facility] [address] [place], [place] [id number] Calcium [Mass/Vol] 9.4 mg/dL Normal 8.6-10.2 [facility] Comment on above: Performed By: #### C MP #### [facility] [address] [place], [place] [id number] Chloride [Moles/Vol] 98 mmol/L Normal 98-107 [facility] Comment on above: Performed By: #### C MP #### [facility] [address] [place], [place] [id number] CO2 [Moles/Vol] 26 mmol/L Normal 20-31 [facility] Comment on above: Performed By: #### C MP #### [facility] [address] [place], [place] [id number] Creatinine [Mass/Vol] 0.5 mg/dL Low 0.7-1.4 [facility] Comment on above: Performed By: #### C MP #### [facility] [address] [place], [place] [id number] eGFRAA 200 mL/min/1.73m2 Normal >60 [facility] Comment on above: Performed By: #### C MP #### [facility] [address] [place], [place] [id number] eGFRNAA 165 mL/min/1.73m2 Normal >60 [facility] Comment on above: Performed By: #### C MP #### [facility] [address] [place], [place] [id number] Globulin (S) [Mass/Vol] 2.8 g/dL Normal 1.9-3.7 [facility] Comment on above: Performed By: #### C MP #### [facility] [address] [place], [place] [id number] Glucose [Mass/Vol] 119 mg/dL High 65-99 [facility] Comment on above: Result Comment: For FASTING Glucose --- ADA reference ranges: Normal 65-99 mg/dl Prediabetes 100-125 Diabetes >/= 126 Performed By: #### C MP #### [facility] [address] [place], [place] [id number] Potassium [Moles/Vol] 4.5 mmol/L Normal 3.5-5.5 [facility] Comment on above: Result Comment: Spec imen is hemolyzed. Results may be affected. Performed By: #### C MP #### [facility] [address] [place], [place] [id number] Protein [Mass/Vol] 7.0 g/dL Normal 6.1-8.1 Luis E bentley [employer] Comment on above: Performed By: #### C MP #### [facility] [address] [place], [place] [id number] Sodium [Moles/Vol] 137 mmol/L Normal 135-146 Luis E bentley [employer] Comment on above: Performed By: #### C MP #### [facility] [address] [place], [place] [id number] Urea nitrogen [Mass/Vol] 25 mg/dL Normal 7-25 [facility] Specialist Comment on above: Performed By: #### C MP #### [facility] [address] [place], [place] [id number] MG MAMM YANY DIAG W CADon MG MAMM YANY DIAG W CAD Patient: ESA LEAVITT Exam Date: 10/16/2020 : 1935 Gender:M Ordering : DR BETO BECKWITH M.D. Admission #: [id number] Family : Order #: [id number] CLICK HERE TO VIEW EXAM RADIOLOGY REPORT [...] Treatments None Family Cancers None LOCATION: [facility] BREAST COMPOSITION: Almost entirely fatty. FINDINGS: DIAGNOSTIC [...] Menezes MD on 10/16/2020 at 11:04 Normal [facility] Vital Signs Date Time Vital Sign Value Performing Clinician Facility 01-25-2022 10:50-0400 PAIN LEVEL 0 {score} Dr. Minh Bucio [facility] 01-25-2022 10:42-0400 Body temperature 97 [degF] Dr. Minh Bucio [facility] 01-25-2022 10:42-0400 Diastolic blood pressure 80 mm[facility]-25-2022 10:42-0400 Heart rate 78 /min Dr. Minh Bucio [facility] 01-25-2022 10:42-0400 Respiratory rate 18 /min Dr. Minh Bucio [facility] 01-25-2022 10:42-0400 Systolic blood pressure 133 mm[Hg[facility] 01-25-2022 07:57-0400 PAIN LEVEL 1 {score} Dr. Minh Bucio [facility] 01-25-2022 06:38-0400 PAIN LEVEL 2 {score} Dr. Minh Bucio [facility] 01-25-2022 01:51-0400 Body temperature 97.1 [degF] Dr. Minh Bucio [facility] 01-25-2022 01:51-0400 Diastolic blood pressure 65 mm[Hg[facility] 01-25-2022 01:51-0400 Heart rate 87 /min Dr. Minh Bucio [facility] 01-25-2022 01:51-0400 Respiratory rate 17 /min Dr. Minh Bucio [facility] 01-25-2022 01:51-0400 Systolic blood pressure 162 mm[Hg] Dr. Minh Kim [facility] 01-25-2022 01:05-0400 PAIN LEVEL 0 {score} Dr. Minh Bucio [facility] 01-24-2022 11:04-0400 PAIN LEVEL 0 {score} Dr. Minh Bucio [facility] 01-24-2022 01:42-0400 Body temperature 96.6 [degF] Dr. Minh Bucio [facility] 01-24-2022 01:42-0400 Diastolic blood pressure 60 mm[facility]Hg[facility] 01-24-2022 01:42-0400 Heart rate 75 /min Dr. Minh Bucio [facility] 01-24-2022 01:42-0400 Respiratory rate 16 /[facility] 01-24-2022 01:42-0400 Systolic blood pressure 144 mm[Hg[facility] 01-24-2022 00:10-0400 PAIN LEVEL 0 {score} Dr. Minh Bucio [facility] 01-23-2022 17:21-0400 PAIN LEVEL 0 {score} Dr. Minh Bucio [facility] 01-23-2022 00:23-0400 PAIN LEVEL 1 {score} Dr. Minh Bucio [facility] 01-22-2022 18:57-0400 Body temperature 97.2 [degF] Dr. Minh Bucio [facility] 01-22-2022 18:57-0400 Diastolic blood pressure 52 mm[Hg] Dr. Minh Kim [facility] 01-22-2022 18:57-0400 Heart rate 72 /min Dr. Minh Bucio [facility] 01-22-2022 18:57-0400 Respiratory rate 1797 /min Dr. Minh Bucio [facility] 01-22-2022 18:57-0400 Systolic blood pressure 111 mm[Hg[facility] 01-22-2022 08:31-0400 PAIN LEVEL 0 {score} Dr. Minh Bucio [facility] 01-22-2022 06:38-0400 PAIN LEVEL 0 {score} Dr. Minh Bucio [facility] 01-22-2022 05:33-0400 PAIN LEVEL 3 {score} Dr. Minh Bucio [facility] 01-22-2022 01:10-0400 PAIN LEVEL 0 {score} Dr. Minh Bucio [facility] 01-22-2022 01:08-0400 Body temperature 96.4 [degF] Dr. Minh Bucio [facility] 01-22-2022 01:08-0400 Diastolic blood pressure 57 mm[Hg] Dr. Minh Kim [facility] 01-22-2022 01:08-0400 Heart rate 70 /min Dr. Minh Bucio [facility] 01-22-2022 01:08-0400 Respiratory rate 14 /min Dr. Minh Bucio [facility] 01-22-2022 01:08-0400 Systolic blood pressure 165 mm[Hg] Dr. Minh Kim [facility] 01-21-2022 11:37-0400 PAIN LEVEL 2 {score} Dr. Minh Bucio [facility] 01-21-2022 10:07-0400 PAIN LEVEL 4 {score} Dr. Minh Bucio [facility] 01-21-2022 10:06-0400 PAIN LEVEL 4 {score} Dr. Minh Bucio [facility] 01-21-2022 05:22-0400 Body temperature 97.8 [degF] Dr. Minh Bucio [facility] 01-21-2022 05:22-0400 Diastolic blood pressure 67 mm[Hg] Dr. Minh Kim [facility] 01-21-2022 05:22-0400 Heart rate 79 /min Dr. Minh Bucio [facility] 01-21-2022 05:22-0400 Respiratory rate 16 /min Dr. Minh Bucio [facility] 01-21-2022 05:22-0400 Systolic blood pressure 143 mm[Hg[facility] 01-21-2022 04:22-0400 PAIN LEVEL 0 {score} Dr. Minh Bucio [facility] 01-20-2022 10:32-0400 PAIN LEVEL 1 {score} Dr. Minh Bucio [facility] 01-20-2022 04:13-0400 Body temperature 97 [degF] Dr. Minh Bucio [facility] 01-20-2022 04:13-0400 Diastolic blood pressure 64 mm[Hg[facility] 01-20-2022 04:13-0400 Heart rate 88 /min Dr. Minh Bucio [facility] 01-20-2022 04:13-0400 Respiratory rate 20 /[facility] 01-20-2022 04:13-0400 Systolic blood pressure 143 mm[Hg] Dr. Minh Kim [facility] 01-20-2022 03:36-0400 PAIN LEVEL 0 {score} Dr. Minh Bucio [facility] 01-19-2022 20:16-0400 PAIN LEVEL 1 {score} Dr. Minh Bucio [facility] 01-19-2022 19:58-0400 Body temperature 96.8 [degF] Dr. Minh Bucio [facility] 01-19-2022 19:58-0400 Diastolic blood pressure 62 mm[Hg] Dr. Minh Kim [facility] 01-19-2022 19:58-0400 Heart rate 73 /min Dr. Minh Bucio [facility] 01-19-2022 19:58-0400 Respiratory rate 18 /[facility] 01-19-2022 19:58-0400 Systolic blood pressure 147 mm[Hg] Dr. Minh Kim [facility] 01-19-2022 19:10-0400 PAIN LEVEL 2 {score} Dr. Minh Bucio [facility] 01-19-2022 19:10-0400 PAIN LEVEL 2 {score} Dr. Minh Groverjuwan [facility] 01-19-2022 10:41-0400 PAIN LEVEL 0 {score} Dr. Minh Bucio [facility] 01-19-2022 06:00-0400 Oxygen saturation in Blood 92 % Dr. Minh Kim [facility] 01-19-2022 02:18-0400 Body temperature 97.8 [degF] [facility] 01-19-2022 02:18-0400 Diastolic blood pressure 70 mm[Hg] Dr. Minh Kim [facility] 01-19-2022 02:18-0400 Heart rate 87 /min Dr. Minh Kim [facility] 01-19-2022 02:18-0400 Respiratory rate 20 /min Dr. Minh Kim [facility] 01-19-2022 02:18-0400 Systolic blood pressure 158 mm[Hg] Dr. Minh Kim [facility] 01-19-2022 02:16-0400 PAIN LEVEL 1 {score} Dr. Minh Bucio [facility] 01-19-2022 02:16-0400 PAIN LEVEL 1 {score} Dr. Minh Kim [facility] 01-19-2022 00:01-0400 PAIN LEVEL 2 {score} Dr. Minh Bucio [facility] 01-18-2022 19:38-0400 PAIN LEVEL 0 {score} [facility] 01-18-2022 16:25-0400 Body temperature 97.5 [degF] Dr. Minh Bucio [facility] 01-18-2022 16:25-0400 Diastolic blood pressure 56 mm[Hg] Dr. Minh Kim [facility] 01-18-2022 16:25-0400 Heart rate 76 /[facility] 01-18-2022 16:25-0400 Respiratory rate 15 /min Dr. Mnih Kim [facility] 01-18-2022 16:25-0400 Systolic blood pressure 128 mm[Hg] Dr. Minh Kim [facility] 01-18-2022 11:17-0400 PAIN LEVEL 0 {score} Dr. Minh Groverjuwan [facility] 01-18-2022 09:31-0400 PAIN LEVEL 5 {score} Dr. Minh Kim [facility] 01-18-2022 09:30-0400 PAIN LEVEL 5 {score} Dr. Minh Kim [facility] 01-18-2022 02:08-0400 PAIN LEVEL 0 {score} [facility] 01-17-2022 16:19-0400 PAIN LEVEL 0 {score} [facility] 01-17-2022 09:50-0400 PAIN LEVEL 0 {score} [facility] 01-17-2022 06:42-0400 PAIN LEVEL 0 {score} [facility] 01-17-2022 00:29-0400 PAIN LEVEL 3 {score} Dr. Minh Bucio [facility] 01-17-2022 00:29-0400 PAIN LEVEL 3 {score} Dr. Minh Groverjuwan [facility] 01-16-2022 17:57-0400 Body temperature 97.4 [degF] [facility] 01-16-2022 17:57-0400 Diastolic blood pressure 67 mm[Hg[facility] 01-16-2022 17:57-0400 Heart rate 77 /min Dr. Minh Bucio [facility] 01-16-2022 17:57-0400 Oxygen saturation in Blood 97 % Dr. Minh Kim [facility] 01-16-2022 17:57-0400 Respiratory rate 17 /min Dr. Minh Kim [facility] 01-16-2022 17:57-0400 Systolic blood pressure 153 mm[Hg] Dr. Minh Kim [facility] 01-16-2022 11:52-0400 Body weight 73.[address] [facility] 01-16-2022 10:02-0400 PAIN LEVEL 0 {score} Dr. Minh Bucio [facility] 01-16-2022 09:26-0400 Body temperature 98 [degF] Dr. Minh Bucio [facility] 01-16-2022 09:26-0400 Diastolic blood pressure 55 mm[Hg] Dr. Minh Kim [facility] 01-16-2022 09:26-0400 Heart rate 81 /min Dr. Minh Bucio [facility] 01-16-2022 09:26-0400 Respiratory rate 17 /min Dr. Minh Bucio [facility] 01-16-2022 09:26-0400 Systolic blood pressure 113 mm[Hg[facility] 01-16-2022 09:03-0400 PAIN LEVEL 1 {score} Dr. Minh Bucio [facility] 01-16-2022 07:56-0400 PAIN LEVEL 4 {score} Dr. Minh Bucio [facility] 01-16-2022 02:08-0400 PAIN LEVEL 0 {score} Dr. Minh Bucio [facility] 01-15-2022 21:31-0400 Body temperature 97.6 [degF] Dr. Minh Bucio [facility] 01-15-2022 21:31-0400 Diastolic blood pressure 57 mm[Hg] Dr. Minh Kim [facility] 01-15-2022 21:31-0400 Heart rate 75 /min Dr. Minh Bucio [facility] 01-15-2022 21:31-0400 Oxygen saturation in Blood 97 % Dr. Minh Kim [facility] 01-15-2022 21:31-0400 Respiratory rate 20 /min Dr. Minh Bucio [facility] 01-15-2022 21:31-0400 Systolic blood pressure 110 mm[Hg[facility] 01-15-2022 11:34-0400 Body temperature 97.9 [degF] Dr. Minh Bucio [facility] 01-15-2022 11:34-0400 Diastolic blood pressure 66 mm[Hg] [facility] 01-15-2022 11:34-0400 Heart rate 97 /min Dr. Minh Bucio [facility] 01-15-2022 11:34-0400 Respiratory rate 17 /min Dr. Minh Groverjuwan [facility] 01-15-2022 11:34-0400 Systolic blood pressure 102 mm[facility]Hg[facility]-2022 09:58-0400 PAIN LEVEL 1 {score} Dr. Minh Bucio [facility] 01-15-2022 05:43-0400 Body temperature 97.6 [degF] Dr. Minh Kim [facility] 01-15-2022 05:43-0400 Diastolic blood pressure 58 mm[Hg] Dr. Minh Kim [facility] 01-15-2022 05:43-0400 Heart rate 68 /min Dr. Minh Bucio [facility] 01-15-2022 05:43-0400 Respiratory rate 16 /[facility] 01-15-2022 05:43-0400 Systolic blood pressure 190 mm[Hg] Dr. Minh Kim [facility] 01-15-2022 00:04-0400 PAIN LEVEL 0 {score} Dr. Minh Bucio [facility] 01-14-2022 20:03-0400 PAIN LEVEL 0 {score} Dr. Minh Bucio [facility] 01-14-2022 16:01-0400 Body temperature 97.6 [degF] Dr. Minh Bucio [facility] 01-14-2022 16:01-0400 Diastolic blood pressure 58 mm[Hg] Dr. Minh Kim [facility] 01-14-2022 16:01-0400 Heart rate 68 /[facility] 01-14-2022 16:01-0400 Systolic blood pressure 140 mm[Hg] Dr. Minh Kim [facility] 01-14-2022 10:14-0400 PAIN LEVEL 0 {score} Dr. Minh Bucio [facility] 01-14-2022 04:44-0400 PAIN LEVEL 0 {score} Dr. Minh Kim [facility] 01-13-2022 21:34-0400 Body temperature 97.2 [degF] Dr. Minh Kim [facility] 01-13-2022 21:34-0400 Diastolic blood pressure 65 mm[Hg] Dr. Minh Kim [facility] 01-13-2022 21:34-0400 Heart rate 75 /[facility] 01-13-2022 21:34-0400 Systolic blood pressure 139 mm[Hg] Dr. Minh Kim [facility] 01-13-2022 20:03-0400 PAIN LEVEL 0 {score} Dr. Minh Bucio [facility] 01-13-2022 12:41-0400 Body temperature 97.2 [degF] Dr. Minh Bucio [facility] 01-13-2022 12:41-0400 Diastolic blood pressure 66 mm[Hg[facility] 01-13-2022 12:41-0400 Heart rate 82 /min Dr. Minh Bucio [facility] 01-13-2022 12:41-0400 Respiratory rate 16 /min Dr. Minh Bucio [facility] 01-13-2022 12:41-0400 Systolic blood pressure 125 mm[Hg] Dr. Minh Kim [facility] 01-13-2022 09:40-0400 PAIN LEVEL 0 {score} Dr. Minh Bucio [facility] 01-13-2022 00:58-0400 PAIN LEVEL 0 {score} [facility] 01-12-2022 11:51-0400 Body temperature 97.7 [degF] Dr. Minh Bucio [facility] 01-12-2022 11:51-0400 Diastolic blood pressure 60 mm[Hg] Dr. Minh Kim [facility] 01-12-2022 11:51-0400 Heart rate 80 /min Dr. Minh Bucio [facility] 01-12-2022 11:51-0400 Respiratory rate 16 /min Dr. Minh Bucio [facility] 01-12-2022 11:51-0400 Systolic blood pressure 130 mm[Hg] Dr. Minh Kim [facility] 01-12-2022 10:17-0400 PAIN LEVEL 0 {score} Dr. Minh Bucio [facility] 01-12-2022 04:33-0400 Body temperature 96.8 [degF] Dr. Minh Bucio [facility] 01-12-2022 04:33-0400 Diastolic blood pressure 67 mm[Hg[facility] 01-12-2022 04:33-0400 Heart rate 66 /min Dr. Minh Bucio [facility] 01-12-2022 04:33-0400 Respiratory rate 16 /min Dr. Minh Bucio [facility] 01-12-2022 04:33-0400 Systolic blood pressure 143 mm[Hg] Dr. Minh Kim [facility] 01-11-2022 16:00-0400 Body temperature 97.1 [degF[facility] 01-11-2022 16:00-0400 Diastolic blood pressure 67 mm[Hg] Dr. Minh Kim [facility] 01-11-2022 16:00-0400 Heart rate 66 /min Dr. Minh Bucio [facility] 01-11-2022 16:00-0400 Respiratory rate 18 /[facility] 01-11-2022 16:00-0400 Systolic blood pressure 143 mm[Hg] Dr. Minh Kim [facility] 01-11-2022 09:48-0400 PAIN LEVEL 0 {score} Dr. Minh Bucio [facility] 01-11-2022 09:07-0400 Body temperature 97.5 [degF] Dr. Minh Bucio [facility] 01-11-2022 09:07-0400 Diastolic blood pressure 74 mm[Hg[facility] 01-11-2022 09:07-0400 Heart rate 90 /min Dr. Minh Bucio [facility] 01-11-2022 09:07-0400 Oxygen saturation in Blood 97 % Dr. Minh Kim [facility] 01-11-2022 09:07-0400 Respiratory rate 20 /min Dr. Minh Bucio [facility] 01-11-2022 09:07-0400 Systolic blood pressure 141 mm[Hg] Dr. Minh Kim [facility] 01-11-2022 04:32-0400 Body temperature 97.6 [degF] Dr. Minh Kim [facility] 01-11-2022 04:32-0400 Diastolic blood pressure 52 mm[Hg] Dr. Minh Kim [facility] 01-11-2022 04:32-0400 Heart rate 85 /min Dr. Minh Bucio [facility] 01-11-2022 04:32-0400 Respiratory rate 17 /min Dr. Minh Bucio [facility] 01-11-2022 04:32-0400 Systolic blood pressure 134 mm[Hg] Dr. Minh Kim [facility] 01-11-2022 00:16-0400 PAIN LEVEL 0 {score} Dr. Minh Bucio [facility] 01-10-2022 15:56-0400 Body temperature 97.7 [degF] Dr. Minh Bucio [facility] 01-10-2022 15:56-0400 Diastolic blood pressure 92 mm[Hg[facility] 01-10-2022 15:56-0400 Heart rate 75 /min Dr. Minh Bucio [facility] 01-10-2022 15:56-0400 Respiratory rate 20 /min Dr. Minh Bucio [facility] 01-10-2022 15:56-0400 Systolic blood pressure 142 mm[Hg] [facility] 01-10-2022 04:23-0400 Body temperature 98.2 [degF] Dr. Minh Bucio [facility] 01-10-2022 04:23-0400 Diastolic blood pressure 58 mm[Hg] Dr. Minh Kim [facility] 01-10-2022 04:23-0400 Heart rate 70 /min Dr. Minh Bucio [facility] 01-10-2022 04:23-0400 Respiratory rate 16 /min Dr. Minh Bucio [facility] 01-10-2022 04:23-0400 Systolic blood pressure 127 mm[Hg] Dr. Minh Kim [facility] 01-09-2022 18:43-0400 PAIN LEVEL 0 {score} Dr. Minh Bucio [facility] 01-09-2022 10:11-0400 PAIN LEVEL 0 {score} Dr. Minh Bucio [facility] 01-09-2022 05:23-0400 PAIN LEVEL 0 {score} Dr. Minh Bucio [facility] 01-08-2022 19:46-0400 PAIN LEVEL 0 {score} Dr. Minh Bucio [facility] 01-08-2022 09:38-0400 PAIN LEVEL 0 {score} Dr. Minh Bucio [facility] 01-07-2022 19:44-0400 Body temperature 96.7 [degF] Dr. Minh Bucio [facility] 01-07-2022 19:44-0400 Diastolic blood pressure 60 mm[Hg] [facility] 01-07-2022 19:44-0400 Heart rate 74 /min Dr. Minh Bucio [facility] 01-07-2022 19:44-0400 Respiratory rate 14 /[facility] 01-07-2022 19:44-0400 Systolic blood pressure 134 mm[Hg] Dr. Minh Groverjuwan [facility] 01-07-2022 12:14-0400 Body temperature 97.3 [degF] Dr. Minh Bucio [facility] 01-07-2022 12:14-0400 Diastolic blood pressure 59 mm[Hg] Dr. Minh Kim [facility] 01-07-2022 12:14-0400 Heart rate 68 /min Dr. Minh Bucio [facility] 01-07-2022 12:14-0400 Respiratory rate 17 /min Dr. Minh Bcuio [facility] 01-07-2022 12:14-0400 Systolic blood pressure 125 mm[Hg] [facility] 01-07-2022 11:26-0400 Body temperature 97.3 [degF] Dr. Minh Bucio [facility] 01-07-2022 11:26-0400 Diastolic blood pressure 59 mm[Hg[facility] 01-07-2022 11:26-0400 Heart rate 68 /[facility] 01-07-2022 11:26-0400 Oxygen saturation in Blood 94 % Dr. Minh Kim [facility] 01-07-2022 11:26-0400 Respiratory rate 17 /min Dr. Minh Bucio [facility] 01-07-2022 11:26-0400 Systolic blood pressure 125 mm[Hg] Dr. Minh Kim [facility] 01-07-2022 09:26-0400 PAIN LEVEL 0 {score} [facility] 01-07-2022 00:21-0400 PAIN LEVEL 0 {score} [facility] 01-06-2022 18:24-0400 Body temperature 96.8 [degF] [facility] 01-06-2022 18:24-0400 Diastolic blood pressure 89 mm[Hg[facility] 01-06-2022 18:24-0400 Heart rate 77 /min Dr. Minh Bucio [facility] 01-06-2022 18:24-0400 Respiratory rate 18 /min Dr. Minh Bucio [facility] 01-06-2022 18:24-0400 Systolic blood pressure 155 mm[Hg] Dr. Minh Kim [facility] 01-06-2022 16:35-0400 Body weight 73.[address] [facility] 01-06-2022 15:33-0400 PAIN LEVEL 0 {score} [facility] 01-06-2022 15:32-0400 Body temperature 97.7 [degF] Dr. Minh Bucio [facility] 01-06-2022 15:32-0400 Diastolic blood pressure 70 mm[Hg] Dr. Minh Kim [facility] 01-06-2022 15:32-0400 Heart rate 74 /min Dr. Minh Kim [facility] 01-06-2022 15:32-0400 Oxygen saturation in Blood 94 % Dr. Minh Kim [facility] 01-06-2022 15:32-0400 Respiratory rate 20 /min Dr. Minh Kim [facility] 01-06-2022 15:32-0400 Systolic blood pressure 160 mm[Hg] Dr. Minh Kim [facility] 01-06-2022 11:44-0400 Body temperature 97.8 [degF] II Beto Beckwith Work Phone: [facility] 01-06-2022 11:44-0400 Diastolic blood pressure 80 mm[Hg] II Beto Beckwith Work Phone: [facility] 01-06-2022 11:44-0400 Heart rate 73 /min II Beto Beckwith Work Phone: [facility] 01-06-2022 11:44-0400 Respiratory rate 16 /min II Beto Beckwith Work Phone: [facility] 01-06-2022 11:44-0400 SaO2% (BldA) [Mass fraction] 97 % II Beto Beckwith Work Phone: [facility] 01-06-2022 11:44-0400 Systolic blood pressure 132 mm[Hg] II Beto Beckwith Work Phone: [facility] 01-06-2022 08:00-0400 Inhaled oxygen flow rate 2 L/min II Beto Beckwith Work Phone: [facility] 01-06-2022 06:22-0400 Body weight 74 kg II Beto Beckwith Work Phone: [facility] 01-04-2022 13:29-0400 Body height 172.72 cm II Beto Beckwith Work Phone: [facility] Encounters Encounter Date Encounter Type Care Provider Facility Start: 09-27-2023 End: 09-27-2023 ambulatory LORENA Trent GITA Not Available Start: 09-11-2023 End: 09-11-2023 ambulatory BETO BECKWITH Not Available Start: 06-26-2023 End: 07-05-2023 Evaluation and management of inpatient WILL PECK [facility] Start: 03-29-2023 End: 03-29-2023 ambulatory BETO BECKWITH Not Available Start: 01-25-2022 End: 01-25-2022 ambulatory Minh Kim Facility:[facility] Start: 01-25-2022 End: 01-25-2022 Patient encounter procedure II Beto Beckwith Work Phone: [facility] Start: 01-11-2022 End: 01-11-2022 ambulatory Minh Kim Facility:[facility] Start: 01-11-2022 End: 01-11-2022 Patient encounter procedure II Beto Beckwith Work Phone: [facility] Start: 01-06-2022 End: 01-25-2022 Evaluation and management of inpatient Minh Kim [facility] Start: 01-04-2022 ambulatory Demetra Downey Facility :[id number] Start: 01-03-2022 ambulatory Filipe Mcginnis y:[id number] Start: 01-02-2022 ambulatory Demetra Downey Facility :[id number] Start: 01-01-2022 End: 01-06-2022 Evaluation and management of inpatient Anabella Herbert Anatoly Herbert Germán Facility:[facility] Start: 01-01-2022 ambulatory Demetra Ovallesim Facility :[id number] Start: 01-01-2022 End: 01-06-2022 Evaluation and management of inpatient MODESTO Beckwith Work Phone: [facility] Start: 10-16-2020 End: 10-17-[address] BETO BECKWITH Facility:[id number] Start: 07-29-2020 End: 07-30-2020 ambulatory NONE LISTED REQUEST Facility:[facility] Start: 07-02-2020 End: 07-03-2020 ambulatory NONE LISTED [...] Date Care Activity Detail Author Start: 01-06-2022 [facility] Work Phone: Start: 01-01-2022 Referral to key account executive [facility] Work Phone: Start: 01-01-2022 Hospital admission [facility] Work Phone: Patient referral [facility] Work Phone: Immunizations Immunization Date Immunization Notes Care Provider Fa christina 03-15-2021 influenza, high-dose seasonal, quadrivalent, .7mL dose, preservative free Dr. Minh Kim [facility] 07-29-2020 SARS-COV-2 (COVID-19 ) vaccine, mRNA, spike protein, LNP, bivalent booster, preservative free, 50 mcg/0.5 mL or 25 mcg/0.[address] Minh Kim [facility] 07-02-2020 SARS-COV-2 (COVID-19 ) vaccine, mRNA, spike protein, LNP, bivalent booster, preservative free, 50 mcg/0.5 mL or 25 mcg/0.[address] Minh Kim [facility] 03-05-2019 pneumococcal polysaccharide vaccine, [address] Minh Kim [facility] 05-11-2016 tuberculin skin test ; unspecified formulation Dr. Minh Kim [facility] 05-04-2016 tuberculin skin test ; unspecified formulation Dr. Minh Kim [facility] 05-03-[address] Minh Kim [facility] 03-07-2016 pneumococcal conjuga te vaccine, [address] Minh Kim [facility] Payers Date Payer Category Payer Unknown [id number] 2021 Medicare [id number] 2021 Self-pay [id number] 1959 Self-pay [id number] 1959 Unknown [id number] 1934 Unknown [id number] 2.16.84 [id number] 1934 Unknown [id number] 2.16. [id number] 1934 Unknown [id number] 2.16. 840.1.012280.3.579.2.356 1934 Unknown [id number] 2.16. 840.1.589635.3.579.2.356 1934 Unknown [id number] 2.16. 840.1.284993.3.579.2.356 1934 Unknown [id number] 2.16. 840.1.995765.3.579.2.356 1934 Unknown [id number] 2.16. 840.1.615832.3.579.2.175 1934 Unknown [id number] 2.16.84 0.1.778692.3.579.2.1259 1934 Unknown [id number] 2.16.84 0.1.702337.3.579.2.1259 1934 Unknown [id number] 2.16.840 .1.887880.3.579.2.1259 Unknown [id number] 2.16.84 0.1.544155.3.579.2.593 Unknown [id number] 2.16.84 0.1.691543.3.579.2.593 Unknown [id number] 2.16.84 0.1.556439.3.579.2.593 Unknown [place] [employer] [id number] Unknown [facility] [id number] Unknown [id number] 2.16.8 40.1.113553.3.579.2.531 Unknown [id number] 2.16.8 40.1.570498.3.579.2.531 Unknown [id number] 2.16.8 40.1.049903.3.579.2.531 Social History Date Type Detail Facility Start: 01-01-2022 Tobacco smoking stat us NHIS Ex-smoker (finding) [facility] Start: 1935 Sex Assigned At Male F [facility] Start: 01-06-2022 Unknown if vivian ruth smoked [facility] Goals Date Patient Goal Desired Activity /State Functional Status Date Assessment Result Facility 01-06-2022 Functional status Patient at Baseline [facility] Work Phone: Mental Status Date Assessment Result Facility 01-06-2022 Cognitive function Cognitive Sta tus Patient at Baseline [facility] Work Phone: Clinical Notes 01-01-2022 to [...] detailed explanation of the procedure including risks. [place] protocol was observed using maximum sterile barrier [...] the needle was exchanged for a 5 [place] sheath. The microwire was exchanged for an 0.035 wire, and the tract was dilated to accommodate a 7 [place] by 20 cm non tunneled triple-lumen central [...] by: Bouchra Brambila MD 06/29/23 Final result [facility] 01-05-2022 Progress note Note Date/Time January 05, 2022 12:53pm [facility] [address] [place] [address] Hospitalist Progress Note Signed Patient: Esa Leavitt MR#: [id number] : 1935 Acct:[id number] Age/Sex: 86 / M Adm Date: 2 Loc: Room: [address] [place] [address] Type: ADM IN Attending Dr: Mohsen Muniz [...] Ml Insuln.Pen SUBCUT 01/01/23 16:59 Not Given TID.WM[facility] Protocol Ketorolac Tromethamine 30 mg [...] mg 01/06/22 09:00 Omeprazole [address] JAMES 01/06/23 08:59 DAILY [facility] Ondansetron HCl 4 mg 01/01/22 00:08 Ondansetron [...] Cont patient on Eliquis given his elevated [id number] score Generalized deconditioning PT/OT assessment recommends SNF [...] signed by Mohsen Muniz MD> 01/05/22 1253 [facility] Work Phone: 1(130) 285-165908-30-2022 Progress note Author Demetra Downey [facility] January 04, 2022 4:33pm Note Date/Time January 04, 2022 4: 29pm [facility] [address] [place] [address] Cardiology Progress Note Signed Patient: Esa Leavitt MR#: [id number] : 1935 Acct:[id number] Age/Sex: 86 / M Adm Date: 2 Loc: Room: [address] [place] [address] Type: ADM IN Attending Dr: Mohsen Muniz [...] % (Auto) 76.0 Lymph % (Auto) 8.6 Pierce % (Auto) 12.6 Eos % (Auto) 2.3 Baso % (Auto) 0.5 Neut # (Auto) 4.6 Lymph # (Auto) 0.5 L Pierce # (Auto) 0.8 Eos # (Auto) 0.1 [...] MPV Neut % (Auto) Lymph % (Auto) Pierce % (Auto) Eos % (Auto) Baso % (Auto) Neut # (Auto) Lymph # (Auto) Pierce # (Auto) Eos # (Auto) Baso # [...] MPV Neut % (Auto) Lymph % (Auto) Pierce % (Auto) Eos % (Auto) Baso % (Auto) Neut # (Auto) Lymph # (Auto) Pierce # (Auto) Eos # (Auto) Baso # [...] present medications Documented By: Demetra Downey MD, [facility] 2 1628 Signed By: <Electronically signed by [facility] Demetra Downey> 01/04/22 1633 [facility] Work Phone: 1(368) 498-662208-30-2022 Progress note Author Mohsen Muniz [facility] January 04, 2022 11:51am Note Date/Time January 04, 2022 11 :51am [facility] [address] [place] [address] Hospitalist Progress Note Signed Patient: Esa Leavitt MR#: [id number] : 1935 Acct:[id number] Age/Sex: 86 / M Adm Date: 2 Loc: Room: [address] [place] [address] Type: ADM IN Attending Dr: Mohsen Muniz [...] Insuln.Pen SUBCUT 01/01/23 16:59 Not Given TID.WM.[facility] Protocol Ketorolac Tromethamine 30 mg 01/03/22 [...] Cont patient on Eliquis given his elevated [id number] score Generalized deconditioning PT/OT assessment recommends SNF [...] signed by Mohsen Muniz MD> 01/04/22 1151 [facility] Work Phone: 1(619) 245-541508-29-2022 Progress note Author Mohsen Muniz [facility] January 03, 2022 7:41pm Note Date/Time January 03, 2022 7: 16pm [facility] [address] [place] [address] Hospitalist Progress Note Signed Patient: Esa Leavitt MR#: [id number] : 1935 Acct:[id number] Age/Sex: 86 / M Adm Date: 2 Loc: Room: [address] [place] [address] Type: ADM IN Attending Dr: Mohsen Muniz [...] Insuln.Pen SUBCUT 01/01/23 16:59 Not Given TID.WM.[facility] Protocol Ketorolac Tromethamine 30 mg 01/03/22 [...] Cont patient on Eliquis given his elevated [id number] score Generalized deconditioning PT/OT assessment recommends SNF [...] <Electronically signed by Mohsen Muniz MD> 01/03/221940 [facility] Work Phone: 1(360) 113-871308-29-2022 Progress note Author Demetra Downey [facility] January 03, 2022 12:51pm Note Date/Time January 03, 2022 12 :46pm [facility] [address] [place] [address] Cardiology Progress Note Signed Patient: Esa Leavitt MR#: [id number] : 1935 Acct:[id number] Age/Sex: 86 / M Adm Date: 2 Loc: Room: [address] [place] [address] Type: ADM IN Attending Dr: Mohsen Muniz [...] Status: Acute Documented By: Demetra Downey MD, [facility] 2 1245 Signed By: <Electronically signed by [facility] Demetra Downey> 01/03/22 1251 [facility] Work Phone: 1(311) 478-160008-28-2022 Progress note Author Ronit Caruso [facility] January 02, 2022 6:16pm Note Date/Time January 02, 2022 6: 16pm [facility] [address] [place] [address] Hospitalist Progress Note Signed Patient: Esa Leavitt MR#: [id number] : 1935 Acct:[id number] Age/Sex: 86 / M Adm Date: 2 Loc: Room: [address] [place] [address] Type: ADM IN Attending Dr: Ronit Caruso [...] Start patient on Eliquis given his elevated [id number] score ? Echo is pending ? Check [...] <Electronically signed by Ronit Caruso MD> 01/02/221815 [facility] Work Phone: 1(374) 679-405808-28-2022 Progress note Author Demetra Downey [facility] January 02, 2022 1:39pm Note Date/Time January 02, 2022 1: 35pm [facility] [address] [place] [address] Cardiology Progress Note Signed Patient: Esa Leavitt MR#: [id number] : 1935 Acct:[id number] Age/Sex: 86 / M Adm Date: 2 Loc: Room: [address] [place] [address] Type: ADM IN Attending Dr: Ronit Caruso [...] MPV Neut % (Auto) Lymph % (Auto) Pierce % (Auto) Eos % (Auto) Baso % (Auto) Neut # (Auto) Lymph # (Auto) Pierce # (Auto) Eos # (Auto) Baso # (Auto) Nucleated RBC % (auto) PHA Creatinine Clear Sodium Potassium Chloride Carbon Dioxide BUN Creatinine Est GFR ( Amer) Est GFR (Non-Af Amer) Glucose POC Glucose 130 159 POC Glucose Comment Calcium Urine Color Bell A Urine Appearance Clear Urine pH 5.5 Ur Specific [place] 1.020 Urine Protein Negative Urine Glucose (UA) [...] % (Auto) 79.0 Lymph % (Auto) 9.0 Pierce % (Auto) 11.1 Eos % (Auto) 0.3 Baso % (Auto) 0.6 Neut # (Auto) 7.4 Lymph # (Auto) 0.8 L Pierce # (Auto) 1.0 H Eos # (Auto) [...] Color Urine Appearance Urine pH Ur Specific [place] Urine Protein Urine Glucose (UA) Urine Ketones Urine Occult Blood Urine Nitrite Urine Bilirubin Urine Urobilinogen Ur Leukocyte Esterase Urine RBC Urine WBC Ur Squamous Epith Cells Urine Bacteria Hyaline Casts 01/02/22 11:42 Corrected WBC Uncorrected WBC Count RBC Hgb Hct MCV MCH MCHC RDW Plt Count MPV Neut % (Auto) Lymph % (Auto) Pierce % (Auto) Eos % (Auto) Baso % (Auto) Neut # (Auto) Lymph # (Auto) Pierce # (Auto) Eos # (Auto) Baso # (Auto) Nucleated RBC % (auto) PHA Creatinine Clear Sodium Potassium Chloride Carbon Dioxide BUN Creatinine Est GFR ( Amer) Est GFR (Non-Af Amer) Glucose POC Glucose 144 POC Glucose Comment Glu2: cleaned meter Calcium Urine Color Urine Appearance Urine pH Ur Specific [place] Urine Protein Urine Glucose (UA) Urine Ketones [...] test tomorrow Documented By: Demetra Downey MD, FACC 2 1332 Signed By: <Electronically signed by MD PARRA Demetra Gipson Downey> 01/02/22 9999 [facility] Work Phone: 1(715) 312-783408-27-2022 Consult note Author Anderson Ambrosio [facility] January 01, 2022 4:03pm Note Date/Time January 01, 2022 4: 02pm [facility] [address] [place] [address] Cardiology Consult Note Signed Patient: Esa Leavitt MR#: [id number] : 1935 Acct:[id number] Age/Sex: 86 / M Adm Date: 2 Loc: Room: [address] [place] [address] Type: ADM IN Attending Dr: Ronit Caruso [...] was brought to the emergency department at [facility]. He was found by first EKG [...] Use Type: Alcohol Substance Abuse Comment: 2-3 MARTIN'S DAY Meds Medications and Allergies Allergies No [...] (Auto) 0.6 L 0.6 L (1.00-4.8) x10E3/uL Pierce # (Auto) 0.9 H 1.5 H (0.0-0.8) [...] family. Documented By: Anderson Ambrosio MD 01/01/22 1551 Signed By: <Electronically signed by Anderson Ambrosio MD> 01/01/22 7498 [facility] Work Phone: 1(391) 137-270308-27-2022 Progress note Author Ronit Caruso [facility] January 01, 2022 2:37pm Note Date/Time January 01, 2022 2: 37pm [facility] [address] [place] [address] Hospitalist Progress Note Signed Patient: Esa Leavitt MR#: [id number] : 1935 Acct:[id number] Age/Sex: 86 / M Adm Date: 2 Loc: 3T Room: [address] [place] [address] Type: ADM IN Attending Dr: Ronit Caruso [...] Flush Documented By: Ronit Caruso MD 01/01/22 3526 Signed By: <Electronically signed by Ronit Caruso MD> 01/01/22 1437 [facility] Work Phone: 1(252) 982-708708-27-2022 History and physical note Author Anabella Dunlap [facility] January 01, 2022 12:22am Note Date/Time January 01, 2022 12 :22am [facility] [address] [place] [address] Hospitalist H&P Signed Patient: Esa Leavitt MR#: [id number] : 1935 Acct:[id number] Age/Sex: 86 / M Adm Date: 2 Loc: ER Room: Type: [facility] ER Attending Dr: Copies to: [...] 12/31/21 22:45 Hct 38.5 % (38.8-50.0) L 12/31/21:45 MCV 97.4 fl (83.5-101) 12/31/21:45 MCH 32.0 pg (27.5-35.2) 12/31/21: MCHC 32.9 g/dL (32.5-35.6) 12/31/21: RDW 13.3 % (12.0-14.8) 12/31/21:45 Plt Count 254 x10E3/uL (150-450) 12/31/21:45 MPV 8.7 fl (6.6-10.1) 12/31/21:45 Neut % (Auto) 88.6 % (.) 12/31/21: Lymph % (Auto) 4.3 % (.) 12/31/21: Pierce % (Auto) 6.6 % (.) 12/31/21: Eos % (Auto) 0.2 % (.) 12/31/21:45 Baso % (Auto) 0.3 % (.) 12/31/21:45 Neut # (Auto) 12.3 x10E3/uL (1.8-7.7) H 12/31/21:45 Lymph # (Auto) 0.6 x10E3/uL (1.00-4.8) L 12/31/21:45 Pierce # (Auto) 0.9 x10E3/uL (0.0-0.8) H 12/31/21:45 Eos # (Auto) 0.0 x10E3/uL (0.0-0.45) 12/31/21:45 Baso # (Auto) 0.0 x10E3/uL (0.0-0.2) 12/31/21:45 Nucleated RBC % (auto) 0.1 % (0-0.5) 12/31/21:45 PT 12.6 Seconds (9.0-12.9) 12/31/21:45 INR 1.1 12/31/21:45 APTT 29.3 Seconds (25.1-36.5) 12/31/21:45 D-Dimer Quant (PE/DVT) 280 ng/mL (0-243) H [...] Start patient on Eliquis given his elevated OBF3PZ1-FNPs score ? Echo is pending ? Check TSH and free T4 *Chronic medical issues 1. Hypertension 2. Diabetes 3. Hyperlipidemia ? Continue his home medications Documented By: Anabella Stone MD 2 0014 Signed By: <Electronically signed by Anabella Stone MD> 01/01/22 0022 [facility] Work Phone: Consult note Author Anderson Ambrosio [facility] January 01, 2022 4:03pm Note Date/Time January 01, 2022 4: 02pm [facility] [address] [place] [address] Cardiology Consult Note Signed Patient: Esa Leavitt MR#: [id number] : 1935 Acct:[id number] Age/Sex: 86 / M Adm Date: 2 Loc: Room: [address] [place] [address] Type: ADM IN Attending Dr: Ronit Caruso [...] was brought to the emergency department at [facility]. He was found by first EKG [...] (Auto) 0.6 L 0.6 L (1.00-4.8) x10E3/uL Pierce # (Auto) 0.9 H 1.5 H (0.0-0.8) [...] family. Documented By: Anderson Ambrosio MD 01/01/22 3666 Signed By: <Electronically signed by Anderson Ambrosio MD> 01/01/22 1603 [facility] Work Phone: Discharge summary Author Mohsen Muniz [facility] January 06, 2022 12:58pm Note Date/Time January 06, 2022 12:58pm [facility] [address] [place] [address] Discharge Summary Signed Patient: Esa Leavitt MR#: [id number] : 1935 Acct:[id number] Age/Sex: 86 / M Adm Date: 2 Loc: Room: [address] [place] [address]: Mohsen Muniz MD Copies to: [...] no history of A. fib. Given elevated QRA8VL3-IZZd, he was started on Eliquis. He was further evaluated for his chest pain with nuclear medicine stress testing. This was positive for possibly apical reversible ischemia. Cardiology team discussed these findings with patient and his family, and patient ultimately decided to continue with medical management only at this time. Otherwise, patient was assessed by physical and Occupational Therapy who recommended care home placement. He was agreeable and was discharged [...] noted Discharge Plan Discharge Plan Patient Disposition: Snf Facility Activity: No Activity Restriction Diet: Low-Sodium [...] signed by Mohsen Muniz MD> 01/06/22 1258 [facility] Work Phone: Evaluation note* Diagnosis Onset Date Resolution Status Atrial fibrillation with rapid ventricular response acute Chest pain acute Essential hypertension acute [facility] Work Phone: Hospital Discharge instructions Additional Instructions SNF TO MANAGE: PT/OT to eval and treat Monitor VS per protocol--Hx of HTN Monitor FSBS per protocol Maintain high risk fall precautions Care to be managed [facility] Work [facility] Work Phone: Progress note Author Ronit Caruso [facility] January 01, 2022 2:37pm Note Date/Time January 01, 2022 2: 37pm [facility] [address] [place] [address] Hospitalist Progress Note Signed Patient: Esa Leavitt MR#: [id number] : 1935 Acct:[id number] Age/Sex: 86 / M Adm Date: 2 Loc: Room: [address] [place] [address] Type: ADM IN Attending Dr: Ronit Caruso [...] 09:00 01/01/22 09:00 Ferrous Sulfate 324 Mg Tablet. PO 01/01/23 08:59 324 mg DAILY MASOOD [...] signed by Ronit Caruso MD> 01/01/22 1437 [facility] Work Phone: Progress note Author Demetra Downey [facility] January 02, 2022 1:39pm Note Date/Time January 02, 2022 1: 35pm [facility] [address] [place] [address] Cardiology Progress Note Signed Patient: Esa Leavitt MR#: [id number] : 1935 Acct:[id number] Age/Sex: 86 / M Adm Date: 2 Loc: Room: [address] [place] [address] Type: ADM IN Attending Dr: Ronit Caruso [...] MPV Neut % (Auto) Lymph % (Auto) Pierce % (Auto) Eos % (Auto) Baso % (Auto) Neut # (Auto) Lymph # (Auto) Pierce # (Auto) Eos # (Auto) Baso # (Auto) Nucleated RBC % (auto) PHA Creatinine Clear Sodium Potassium Chloride Carbon Dioxide BUN Creatinine Est GFR ( Amer) Est GFR (Non-Af Amer) Glucose POC Glucose 130 159 POC Glucose Comment Calcium Urine Color Bell A Urine Appearance Clear Urine pH 5.5 Ur Specific [place] 1.020 Urine Protein Negative Urine Glucose (UA) [...] % (Auto) 79.0 Lymph % (Auto) 9.0 Pierce % (Auto) 11.1 Eos % (Auto) 0.3 Baso % (Auto) 0.6 Neut # (Auto) 7.4 Lymph # (Auto) 0.8 L Pierce # (Auto) 1.0 H Eos # (Auto) [...] Color Urine Appearance Urine pH Ur Specific [place] Urine Protein Urine Glucose (UA) Urine Ketones Urine Occult Blood Urine Nitrite Urine Bilirubin Urine Urobilinogen Ur Leukocyte Esterase Urine RBC Urine WBC Ur Squamous Epith Cells Urine Bacteria Hyaline Casts 01/02/22 11:42 Corrected WBC Uncorrected WBC Count RBC Hgb Hct MCV MCH MCHC RDW Plt Count MPV Neut % (Auto) Lymph % (Auto) Pierce % (Auto) Eos % (Auto) Baso % (Auto) Neut # (Auto) Lymph # (Auto) Pierce # (Auto) Eos # (Auto) Baso # (Auto) Nucleated RBC % (auto) PHA Creatinine Clear Sodium Potassium Chloride Carbon Dioxide BUN Creatinine Est GFR ( Amer) Est GFR (Non-Af Amer) Glucose POC Glucose 144 POC Glucose Comment Glu2: cleaned meter Calcium Urine Color Urine Appearance Urine pH Ur Specific [place] Urine Protein Urine Glucose (UA) Urine Ketones [...] test tomorrow Documented By: Demetra Downey MD, [facility] 2 1332 Signed By: <Electronically signed by [facility] Demetra Downey> 01/02/22 1339 [facility] Work Phone: Progress note Author Ronit Caruso [facility] January 02, 2022 6:16pm Note Date/Time January 02, 2022 6: 16pm [facility] [address] [place] [address] Hospitalist Progress Note Signed Patient: Esa Leavitt MR#: [id number] : 1935 Acct:[id number] Age/Sex: 86 / M Adm Date: 2 Loc: Room: [address] [place] [address] Type: ADM IN Attending Dr: oRnit Caruso MD Copies to: ~ Date of [...] Start patient on Eliquis given his elevated PKJ0XY1-ORYw score ? Echo is pending ? Check [...] <Electronically signed by Ronit Caruso MD> 01/02/221815 [facility] Work Phone: Progress note Author Demetra Downey [facility] January 03, 2022 12:51pm Note Date/Time January 03, 2022 12 :46pm [facility] [address] [place] [address] Cardiology Progress Note Signed Patient: Esa Leavitt MR#: [id number] : 1935 Acct:[id number] Age/Sex: 86 / M Adm Date: 2 Loc: Room: [address] [place] [address] Type: ADM IN Attending Dr: Mohsen Muniz [...] Status: Acute Documented By: Demetra Downey MD, [facility] 2 1245 Signed By: <Electronically signed by [facility] Demetra Downey> 01/03/22 1251 [facility] Work Phone: Progress note Author Mohsen Muniz [facility] January 03, 2022 7:41pm Note Date/Time January 03, 2022 7: 16pm [facility] [address] [place] [address] Hospitalist Progress Note Signed Patient: Esa Leavitt MR#: [id number] : 1935 Acct:[id number] Age/Sex: 86 / M Adm Date: 2 Loc: Room: [address] [place] [address] Type: ADM IN Attending Dr: Mohsen Muniz [...] Insuln.Pen SUBCUT 01/01/23 16:59 Not Given TID.WM.HS [facility] Protocol Ketorolac Tromethamine 30 mg 01/03/22 [...] Cont patient on Eliquis given his elevated [id number] score Generalized deconditioning PT/OT assessment recommends SNF [...] <Electronically signed by Mohsen Muniz MD> 01/03/221940 [facility] Work Phone: Progress note Author Mohsen Muniz [facility] January 04, 2022 11:51am Note Date/Time January 04, 2022 11 :51am [facility] [address] [place] [address] Hospitalist Progress Note Signed Patient: Esa Leavitt MR#: [id number] : 1935 Acct:[id number] Age/Sex: 86 / M Adm Date: 2 Loc: Room: [address] [place] [address] Type: ADM IN Attending Dr: Mohsen Muniz [...] Cap.Er.24h PO 01/03/23 13:59 180 mg DAILY [facility] Administration Glucose 0 gm 01/01/22 14:39 Dextrose [...] Ml Insuln.Pen SUBCUT 01/01/23 16:59 Not Given TID.[facility] Protocol Ketorolac Tromethamine 30 mg [...] Cont patient on Eliquis given his elevated YAG4NM4-ZRVc score Generalized deconditioning PT/OT assessment recommends SNF [...] signed by Mohsen Muniz MD> 01/04/22 1151 [facility] Work Phone: Progress note Author Demetra Downey [facility] January 04, 2022 4:33pm Note Date/Time January 04, 2022 4: 29pm [facility] [address] [place] [address] Cardiology Progress Note Signed Patient: Esa Leavitt MR#: [id number] : 1935 Acct:[id number] Age/Sex: 86 / M Adm Date: 2 Loc: Room: [address] [place] [address] Type: ADM IN Attending Dr: Mohsen Muniz [...] % (Auto) 76.0 Lymph % (Auto) 8.6 Pierce % (Auto) 12.6 Eos % (Auto) 2.3 Baso % (Auto) 0.5 Neut # (Auto) 4.6 Lymph # (Auto) 0.5 L Pierce # (Auto) 0.8 Eos # (Auto) 0.1 [...] MPV Neut % (Auto) Lymph % (Auto) Pierce % (Auto) Eos % (Auto) Baso % (Auto) Neut # (Auto) Lymph # (Auto) Pierce # (Auto) Eos # (Auto) Baso # [...] MPV Neut % (Auto) Lymph % (Auto) Pierce % (Auto) Eos % (Auto) Baso % (Auto) Neut # (Auto) Lymph # (Auto) Pierce # (Auto) Eos # (Auto) Baso # [...] present medications Documented By: Demetra Downey MD, [facility] 2 1628 Signed By: <Electronically signed by MD AIDA Downey> 01/04/22 1633 [facility] Work Phone: Progress note Author Mohsen Muniz [facility] January 05, 2022 12:53pm Note Date/Time January 05, 2022 12 :53pm [facility] [address] [place] [address] Hospitalist Progress Note Signed Patient: Esa Leavitt MR#: [id number] : 1935 Acct:[id number] Age/Sex: 86 / M Adm Date: 2 Loc: Room: [address] [place] [address] Type: ADM IN Attending Dr: Mohsen Muniz [...] Reason Stop Dose Admin Acetaminophen 650 mg 08/29/22 10:05 01/03/22 16:41 Acetaminophen 325 Mg Tablet [...] Insuln.Pen SUBCUT 01/01/23 16:59 Not Given TID.WM.HS [facility] Protocol Ketorolac Tromethamine 30 mg 01/03/22 [...] 20 Mg Capsule.Dr PO 01/06/23 08:59 DAILY [facility] Ondansetron HCl 4 mg 01/01/22 00:08 Ondansetron [...] Cont patient on Eliquis given his elevated SVE3KS2-ZAAy score Generalized deconditioning PT/OT assessment recommends SNF [...] signed by Mohsen Muniz MD> 01/05/22 1253 [facility] Work Phone: Summary Purpose Family History No [...] content) DATE CREATED AUTHOR 11/04/2020 [facility] DATE CREATED AUTHOR AUTHOR'S ORGANIZ ATION 10/08/2021 [facility] dical Specialist DATE CREATED AUTHOR AUTHOR'S ORGANIZ ATION 02/12/2022 [facility] DATE CREATED AUTHOR AUTHOR'S ORGANIZ ATION 06/16/2022 [facility] DATE CREATED AUTHOR AUTHOR'S ORGANIZ ATION 09/03/2022 [facility] DATE CREATED AUTHOR AUTHOR'S ORGANIZ ATION 07/29/2023 [facility] DATE CREATED AUTHOR AUTHOR'S ORGANIZ ATION 09/29/2023 [facility] dical Specialists EPIC Care Teams (unrecognized sec [...] BE BASED ON THE PRIMARY CLINICAL RECORDS. [facility] [employer] [facility]. provides no warranty or guarantee of the accuracy or completeness of information in this document.
[2023-11-02 04:10] LABS: Bacteria Urine SMALL #/HPF (NONE SEEN); Cast Seen? NONE SEEN #/LPF (NONE SEEN); Crystals Seen? None Seen #/HPF (None Seen); Mucus Urine NONE SEEN (NONE SEEN); Squamous Epithelial Cell Urine RARE #/LPF (NONE/RARE); Urine Culture Indicated YES
[2023-11-02] MEDS: ACETAMINOPHEN 325 MG TABLET 650 MG PO (06:31)
[2023-11-02] MEDS: TRAMADOL HCL 50 MG TABLET PO (08:55)
== END 2023-11-02 10:15 | disposition home or self-care (01) ==
PROVIDERS: Emergency Provider Emergency Medicine; Family Provider Internal Medicine; PCP Internal Medicine
DX: R33.9 Retention of urine, unspecified (principal); I48.0 Paroxysmal atrial fibrillation; R60.9 Edema, unspecified; Z79.01 Long term (current) use of anticoagulants
CPT/HCPCS: 51702; 51798; 81001; 87086; 99283

== ENCOUNTER 2023-11-06 18:16 | Emergency (ER) | payer MEDICARE, SELFPAY ==
[2023-11-06] VITALS (16 sets, daily range): BP systolic 155; BP diastolic 59; PULSE 68–99; TEMP 36.9; O2SAT 91–97; BMI 44.8
--- NOTE | 2023-11-06 18:24 | XR_ITS ---
The [address] [address] Patient Name: ARTEMIO LEAVITT MRN: [id number] date: 1935 Sex: M Assigned Patient Location: ED.MAIN Current Patient Location: ED.MAIN Accession/Order Number: [id number] Exam Date: 11/06/2023 18:40 Report Date: 11/06/2023 20:18 At the request of: EWA MENDOZA Procedure: XR chest 1V EXAMINATION:XR chest 1V INDICATION:Edema COMPARISON:None TECHNIQUE:A single frontal view of the chest is submitted. FINDINGS: The cardiomediastinal silhouette is not enlarged. There is similar under inflation of the lungs which is contributing to vascular crowding and bibasilar atelectasis. No definitive pulmonary edema is present. There is a small layering right pleural effusion. The left costophrenic angle is not blunted. XR/XR chest 1V IMPRESSION: Hypoventilatory changes in the chest contributing to vascular crowding and atelectasis. Probable small layering right pleural effusion. Electronically authenticated by: HODA JOSE Date: 11/06/2023 20:18
--- NOTE | 2023-11-06 18:25 | ECG_ITS ---
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
--- NOTE | 2023-11-06 18:25 | ED_ITS ---
HPI HPI - General Adult General Chief complaint: Extremity Problem, Nontraumatic Stated complaint: EDEMA Time Seen by Provider: 11/06/23 18:19 Source: patient Mode of arrival: ambulance Limitations: no limitations History of Present Illness HPI narrative: Patient is an 88-year-old male who presents to the emergency department from an assisted living facility for swelling in the arms and legs. Patient states he has had swelling in his legs persistently for the last 4 to 5 years and believes he has had swelling in the bilateral upper extremities since June. He denies fevers, chest pain, shortness of breath. He does not have any new or different focal medical complaints today, his nurse that gave report states that she was concerned because he is a full code. He was in this emergency department several days ago for Branch catheter placement secondary to urinary retention. He states he has never been on a water pill previously because he could not tolerate the increase in urination, however he now has a Branch catheter in place. Related Data Home Medications ?Medication ?Instructions ?Recorded ?Confirmed apixaban 5 mg tablet (Eliquis) 5 mg PO QDAY 05/10/23 11/02/23 atorvastatin 40 mg tablet 40 mg PO .qhs 05/10/23 11/02/23 diltiazem HCl 180 mg 180 mg PO Q24H 05/10/23 11/02/23 capsule,extended release 24 hr ferrous sulfate 325 mg (65 mg 325 mg PO DAILY 05/10/23 11/02/23 iron) tablet metoprolol succinate 50 mg 50 mg PO QDAY 05/10/23 11/02/23 tablet,extended release 24 hr omeprazole 20 mg capsule,delayed 20 mg PO DAILY 11/02/23 11/02/23 release tramadol 50 mg tablet 50 mg PO Q12H PRN pain 11/02/23 11/02/23 Allergies Allergy/AdvReac Type Severity Reaction Status Date / Time No Known Drug Allergies Allergy Verified 11/06/23 18:22 Opioid HPI Opioid Management Most Recent Opioid Data: Last Pain Scale 0 06/25/23 16:52 Last Pain Intensity 4 05/12/23 09:12 Review of Systems 2 ROS Constitutional Denies: fever or chills Ears, nose, mouth, and throat Denies: throat pain or nasal congestion Cardiovascular Denies: chest pain Respiratory Denies: shortness of breath Gastrointestinal Denies: nausea or vomiting Integumentary/Breast Denies: rash Hematologic/Lymphatic Denies: easy bruising or easy bleeding PFSH [facility] Medical History (Updated 11/06/23 @ 19:24 by MADISON Mejia) Paroxysmal atrial fibrillation ?I48.0 - Paroxysmal atrial fibrillation (ICD-10) Type 2 diabetes mellitus with hyperglycemia ?E11.65 - Type 2 diabetes mellitus with hyperglycemia (ICD-10) HTN (hypertension) ?I10 - Essential (primary) hypertension (ICD-10) Ankle sprain and strain ?S93.409A - Sprain of unspecified ligament of unspecified ankle, initial encounter (ICD-10) ?S96.919A - Strain of unspecified muscle and tendon at ankle and foot level, unspecified foot, initial encounter (ICD-10) High cholesterol ?E78.00 - Pure hypercholesterolemia, unspecified (ICD-10) Atrial fibrillation ?I48.91 - Unspecified atrial fibrillation (ICD-10) Diabetes 1.5, managed as type 2 ?E13.9 - Other specified diabetes mellitus without complications (ICD-10) Surgical History (Updated 05/10/23 @ 20:31 by Rukhsana Perez) Hernia ?K46.9 - Unspecified abdominal hernia without obstruction or gangrene (ICD- 10) History of tonsillectomy ?Z90.89 - Acquired absence of other organs (ICD-10) Back pain with history of spinal surgery ?M54.9 - Dorsalgia, unspecified (ICD-10) ?Z98.890 - Other specified postprocedural states (ICD-10) Social History Within the past year, how often did you have a drink containing alcohol: 4 or more times a week Within the past year, how many standard drinks containing alcohol did you have on a typical day: 1 or 2 Total score: 0 Score interpretation: A score less than 4 is consistent with normal alcohol consumption. Smoking status: Never smoker Non-prescribed substance use: denies use Previous occupational history: retired Highest level of school completed/degree received: Bachelor's degree Are you now , , , , never or living with a partner: In a typical week, how many times do you talk on the telephone with family, friends, or neighbors: 3 or more times per week How often do you get together with friends or relatives: 3 or more times per week How often do you attend pentecostal or hoahaoism services: never Do you belong to any clubs or organizations such as pentecostal groups unions, fraternal or athletic groups, or school groups: no Total score: 2 Score interpretation: A score of greater than or equal to 2 indicates the l owest level of social isolation. Little interest or pleasure in doing things: not at all Feeling down, depressed, or hopeless: not at all Feel stressed/tense/nervous/anxious/difficulty sleeping: not at all Do you think of yourself as: straight/heterosexual Gender Identity: male Exam Narrative Exam Narrative: Gen.: Awake, alert, in no distress Head: Normocephalic, atraumatic ENT: Moist mucous membranes Respiratory: No respiratory distress, Rales to the right mid and lower lung Cardio: Regular rate and rhythm Extremities: Moves extremities equally, Pitting edema noted to the bilateral hands and distal lower extremities. No open wounds or redness, no drainage noted Psych: Normal mood and affect Neuro: No focal neuro deficit Skin: Warm, dry, intact Constitutional Vital Signs, click to edit/add: Last Vital Signs Temp 98.5 F 11/06/23 18:18 Pulse 11/06/23 18:18 Resp 11/06/23 18:18 BP 155/59 H 11/06/23 18:18 Pulse Ox 96 11/06/23 18:18 O2 Del Method Room Air 11/06/23 18:18 Course Vital Signs Vital signs: Vital Signs Temperature 98.5 F 11/06/23 18:18 Pulse Rate 11/06/23 18:18 Respiratory Rate 11/06/23 18:18 Blood Pressure 155/59 H 11/06/23 18:18 Pulse Oximetry 96 11/06/23 18:18 Oxygen Delivery Method Room Air 11/06/23 18:18 Temperature 98.5 F 11/06/23 18:18 Pulse Rate 11/06/23 18:18 Respiratory Rate 16 11/06/23 18:18 Blood Pressure 155/59 H 11/06/23 18:18 Pulse Oximetry 96 11/06/23 18:18 Oxygen Delivery Method Room Air 11/06/23 18:18 Medical Decision Making MDM Narrative Medical decision making narrative: Patient with stable vital signs, normal oxygenation and no increase in shortness of breath. Patient with no complaints of chest pain or shortness of breath in the ER, he is otherwise at his baseline. His lab studies show normal white blood cell count, stable chronic anemia and normal kidney function. Troponin and BNP are within normal limits, patient is rate controlled atrial fibrillation in the ER. Chest x-ray with no evidence of pulmonary edema. He was given a dose of IV Lasix in the emergency department but I do not see any need that he has for admission for diuresis. Further diuresis per his primary care provider. Follow-up with PCP and return to the ER if symptoms change or worsen SUPERVISED APC VISIT, PHYSICIAN ATTESTATION: Based on the medical record the care appears appropriate. ? Medical Records Medical records reviewed: Yes I reviewed the patient's medical records Lab Data Lab results reviewed: Yes I reviewed the patient's lab results Labs: Lab Results 11/06/23 Range/Units 18:31 WBC 8.7 (4.0-11.0) 10^3/uL RBC 3.27 L (4.70-6.10) 10^6/uL Hgb 9.2 L (14.0-18.0) g/dL Hct 28.5 L (42.0-54.0) % MCV 87.2 (80.0-94.0) fL MCH 28.1 (25.9-34.0) pg MCHC 32.3 (29.9-35.2) g/dL RDW 17.4 H (11.0-15.0) % Plt Count 378 (150-450) 10^3/uL MPV 10.3 (9.5-13.5) fL Seg Neuts % (Manual) 94.0 Lymphocytes % (Manual) 6.0 L (20.5-60.0) % Monocytes % (Manual) 0.0 L (1.7-12.0) % Eosinophils % (Manual) 0.0 L (0.9-7.0) % Basophils % (Manual) 0.0 L (0.2-2.0) % Neutrophils # (Manual) 8.17 H (1.4-6.5) 10^3/uL Lymphocytes # (Manual) 0.52 L (1.20-3.80) 10^3/uL Monocytes # (Manual) 0.00 L (0.30-0.80) 10^3/uL Eosinophils # (Manual) 0.00 (0.00-0.70) 10^3/uL Basophils # (Manual) 0.00 (0.00-0.10) 10^3/uL PT 12.4 H (9.0-11.6) sec INR 1.19 Sodium 138 (136-145) mmol/L Potassium 3.6 (3.5-5.1) mmol/L Chloride 100 (98-107) mmol/L Carbon Dioxide 30.2 (21.0-32.0) mmol/L Anion Gap 11.4 BUN 23.0 H (7.0-18.0) mg/dL Creatinine 0.76 (0.70-1.30) mg/dL Est GFR ( Amer) >60 (>=60) Est GFR (Non-Af Amer) >60 (>=60) BUN/Creatinine Ratio 30.3 Glucose 176 H (74-106) mg/dL Calcium 7.9 L (8.5-10.1) mg/dL Total Bilirubin 0.5 (0.2-1.0) mg/dL AST 23 (15-37) U/L ALT 25 (16-63) U/L Alkaline Phosphatase 115 (46-116) U/L Troponin I High Sens 6.7 (4.0-76.1) pg/mL NT-Pro-B Natriuret Pep 1562.0 (<=1800.0) pg/mL Total Protein 5.9 L (6.4-8.2) g/dL Albumin 2.4 L (3.4-5.0) g/dL Globulin 3.5 g/dL Albumin/Globulin Ratio 0.7 Imaging Data Chest x-ray: Attestation: I have reviewed the pertinent imaging results. Radiologist's impression: ITS Impressions Chest X-Ray 11/06/23 18:24 IMPRESSION: Hypoventilatory changes in the chest contributing to vascular crowding and atelectasis. Probable small layering right pleural effusion. Electronically authenticated by: HODA JOSE Date: 11/06/2023 20:18 ECG Data Attestation: I personally reviewed and interpreted this ECG as follows: (Atrial fibrillation at a rate of 64, artifact noted with no acute ST elevation or ectopy. EKG reviewed by attending physician) Discharge Plan Discharge Stand Alone Forms: Portal Instructions Chief Complaint: Extremity Problem, Nontraumatic Clinical Impression: Peripheral edema Patient Disposition: Home, Self-Care Time of Disposition Decision: 20:27 Condition: Good Prescriptions / Home Meds: No Action Eliquis 5 mg tablet 5 mg PO QDAY atorvastatin 40 mg tablet 40 mg PO .qhs diltiazem HCl 180 mg capsule,extended release 24hr 180 mg PO Q24H ferrous sulfate 325 mg (65 mg iron) tablet 325 mg PO DAILY metoprolol succinate 50 mg tablet extended release 24 hr 50 mg PO QDAY omeprazole 20 mg capsule,delayed release(DR/EC) 20 mg PO DAILY tramadol 50 mg tablet 50 mg PO Q12H PRN (Reason: pain) Print Language: [place] Instructions: Edema (ED) Referrals: HIEN TEIXEIRA [Primary Care Provider] - 1 week
--- OUTSIDE RECORDS SUMMARY | 2023-11-06 18:28 | XMS_ITS ---
Patient Summarization (C-CDA 2.1 CCD) Created on: November 06, 2023 ESA LEAVITT [place] : 1935 Sex: Male Author Organization Sample organization Care Team Providers Care Rn Wellness Name Role Phone REQUEST, NONE LISTED Consulting [...] MODESTO Pérez Primary Care Provider MD Bouchra Hugo Emergency Provider Al MD Anabella Kinney Admit Provider HILLARY Andrade Other Provider Unavailable DO Alan Doyle Other Provider MD Demetra Downey Other Provider [phone] MD Filipe Floyd Other Provider MD Antoinette Lucas Other Provider MD Brandon Mcgraw Other Provider EMILEE Talbot Other Provider MD Claudia Isaacs Other Provider MD Cl Johnson Other Provider MD Lazara Mann Other Provider MD Mohsen Muniz Attending Provider Dr. Minh Kim Unavailable Unavailable MD Minh Kim Attending Provider [phone] Minh Kim Attending Unavailable Minh Kim Admitting [...] Primary Care Unavailable KATHRINE GONZALEZ Attending Unavailable CARLOS RATIPRIETO Admitting Unavailable LUZ JUAN Consulting Unavailable ANAT ULRICH Consulting Unavailable DEVAN CASTELLANOS Consulting Unavailable RACHAEL JONES Consulting Unavailable JOYCE NGUYEN Consulting Unavailable ERNESTO GARCIA Consulting UnavailBRANDY Silva Consulting Unavailable BETO BECKWITH Attending Unavailable BETO BECKWITH Attending Unavailable LORENA PELAYO Attending Unavailable BETO BECKWITH Referring Unavailable Encounters Encounter Date Encounter Type Care Provider Facility Start: 09-27-2023 End: 09-27-2023 ambulatory LORENA PELAYO Not Available Start: 09-11-2023 End: 09-11-2023 ambulatory BETO BECKWITH Not Available Start: 06-26-2023 End: 07-05-2023 Evaluation and management of inpatient WILL PECK [facility] Start: 03-29-2023 End: 03-29-2023 ambulatory BETO BECKWITH Not Available Start: 01-25-2022 End: 01-25-2022 ambulatory Minh Kim Facility:[facility] Start: 01-25-2022 End: 01-25-2022 Patient encounter procedure II Beto Beckwith Work Phone: [facility] Start: 01-11-2022 End: 01-11-2022 ambulatory Minh Julio Facility:[facility] Start: 01-11-2022 End: 01-11-2022 Patient encounter procedure II Beto Beckwith Work Phone: [facility] Start: 01-06-2022 End: 01-25-2022 Evaluation and management of inpatient Minh [facility] Start: 01-04-2022 ambulatory Mccrary Downey Facility :[id number] Start: 01-03-2022 ambulatory Filipe Vivek Ras y:[id number] Start: 01-02-2022 ambulatory Mccrary Downey Facility :[id number] Start: 01-01-2022 End: 01-06-2022 Evaluation and management of inpatient Hani Al Anatoly Valentined Facility:[facility] Start: 01-01-2022 ambulatory Mccrary Downey Facility :[id number] Start: 01-01-2022 End: 01-06-2022 Evaluation and management of inpatient II Beto Beckwith Work Phone: [facility] Start: 10-16-2020 End: 10-17-[address] BETO BECKWITH Facility:[facility] Start: 07-29-2020 End: 07-30-2020 ambulatory NONE LISTED REQUEST Facility:[facility] Start: 07-02-2020 End: 07-03-2020 ambulatory NONE LISTED REQUEST Facility:[facility] Start: 06-25-2020 End: 06-26-2020 ambulatory NONE LISTED REQUEST Facility:[facility] Goals Date Patient Goal Desired Activity /State Immunizations Immunization Date Immunization Notes Care Provider Fa [facility] 03-15-2021 influenza, high-dose seasonal, quadrivalent, .7mL dose, preservative free Dr. Minh Kim [facility] 07-29-2020 SARS-COV-2 (COVID-19 ) vaccine, mRNA, spike protein, LNP, bivalent booster, preservative free, 50 mcg/0.5 mL or 25 mcg/0.[address] Minh Kim [facility] 07-02-2020 SARS-COV-2 (COVID-19 ) vaccine, mRNA, spike protein, LNP, bivalent booster, preservative free, 50 mcg/0.5 mL or 25 mcg/0.[address] Minh Kim [facility] 03-05-2019 pneumococcal polysaccharide vaccine, [address] Minh Kim [facility] 05-11-2016 tuberculin skin test ; unspecified formulation Dr. Minh Kim [facility] 05-04-2016 tuberculin skin test ; unspecified formulation Dr. Minh Kim [facility] 05-03-[address] Minh Kim [facility] 03-07-2016 pneumococcal conjuga te vaccine, [address] Minh Kim [facility] Medications Current Medications Medication Drug Class(es) Dates [...] 1 TAB PO Three times daily 10 April 05, 2021 January 01, 2022 12:04am [...] Start: 01-03-2022 take 1 tablet by dior twice daily Apixaban (Eliquis) 5 mg Tablet [...] 05, 2021 1:00am January 06, 2022 12:50pm [employer] [employer] / [employer] balsam (1 source) Standardized Chemical Allergen Start: [...] Every morning 0 January 06, 2022 12:00am Payers Date Payer Category Payer Unknown [id number] 2021 Medicare [id number] 2021 Self-pay [id number] 1960 Self-pay [id number] 1960 Unknown [id number] 1935 Unknown [id number] 2.16.84 0.1.179770.3.579.2.593 1935 Unknown [id number] 2.16. 840.1.897290.3.579.2.356 1935 Unknown [id number] 2.16. 840.1.109963.3.579.2.356 1934 Unknown [id number] 2.16. 840.1.267711.3.579.2.356 1934 Unknown [id number] 2.16. 840.1.118738.3.579.2.356 1934 Unknown [id number] 2.16. 840.1.508209.3.579.2.356 1934 Unknown [id number] 2.16. 840.1.433989.3.579.2.175 1934 Unknown [id number] 2.16.84 0.1.441697.3.579.2.1259 1934 Unknown [id number] 2.16.84 0.1.669571.3.579.2.1259 1934 Unknown [id number] 2.16.840 .1.781887.3.579.2.1259 Unknown [id number] 2.16.84 0.1.546497.3.579.2.593 Unknown [id number] 2.16.84 0.1.967320.3.579.2.593 Unknown [id number] 2.16.84 0.1.436269.3.579.2.593 Unknown [employer]/BS [id number] Unknown [employer] [id number] Unknown [id number] 2.16.8 40.1.040992.3.579.2.531 Unknown [id number] 2.16.8 40.1.347146.3.579.2.531 Unknown [id number] 2.16.8 [id number] Plan of Treatment Date Care Activity Detail Author Start: 01-06-2022 [facility] Work Phone: Start: 01-01-2022 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 [facility] Work Phone: Start: 01-01-2022 Hospital admission [facility] Work Phone: Patient referral [facility] Work Phone: Problems Active Problems Problem Classification Problem Date [...] cardiovascular function study] Onset: 2 01-06-2022 Episodic Procedures Date Procedure Procedure Detail Performing Clinician Start: 01-03-2022 Radionuclide myocard ial perfusion stress study II eBto Beckwith Work Phone: Start: 01-01-2022 CT of thorax with contrast II Beto Beckwith Work Phone: Start: 12-31-2021 Plain chest X-ray II Charles Beckwith Work Phone: Blood culture for bacteria, including anaerobic screen II Beto Beckwith Work Phone: SARS Antigen (LFIA) II Luis Beckwith Work Phone: Results Test Name Value Interpretation Reference Range Facility Glucose,Whole Bloodon 2023 Glucose [Mass/Vol] 115 mg/dL High 75-110 [facility] Glucose [Mass/Vol] 189 mg/dL High 75-110 [facility] Calcium, [employer] 07-04-2023 Calcium [Moles/Vol] 1.03 mmol/L Low 1.13-1.33 [facility] Comment on above: Performed By: #### I OCAL ####[place] [address] Lab Director: Giovani Stafford MD Glucose,Whole Bloodon 2023 Glucose [Mass/Vol] 113 mg/dL High 75-110 [facility] Glucose [Mass/Vol] 162 mg/dL High 75-110 [facility] Glucose [Mass/Vol] 195 mg/dL High 75-110 [facility] Glucose [Mass/Vol] 192 mg/dL High 75-110 [facility] Basic Metab w/rfx MGon 07-03 Anion gap [Moles/Vol] 7 mmol/L Low 9-[address] [facility] Comment on above: Performed By: #### C DP, BMPX, MG, SUYAPA #### [facility] [address] [place] [address] General Maintenance Engineer: Giovani Stafford MD Calcium [Mass/Vol] 7.6 mg/dL Low 8.6-10.4 [facility] Comment on above: Performed By: #### C DP, BMPX, MG, SUYAPA #### [facility] [address] [place] [address] General Maintenance Engineer: Giovani Stafford MD Chloride [Moles/Vol] 95 mmol/L Low 98-107 [facility] Comment on above: Performed By: #### C DP, BMPX, MG, SUYAPA #### [employer] [address] [place] [address] General Maintenance Engineer: Giovani Stafford MD CO2 [Moles/Vol] 28 mmol/L Normal 20-31 [facility] Comment on above: Performed By: #### C DP, BMPX, MG, SUYAPA #### [employer] [address] [place] [address] General Maintenance Engineer: Giovani Stafford MD Creatinine [Mass/Vol] 0.3 mg/dL Low 0.7-1.[address] [facility] Comment on above: Performed By: #### C DP, BMPX, MG, SUYAPA #### [employer] [address] [place] [address] General Maintenance Engineer: Giovani Stafford MD GFR/1.73 sq M.predicted among non-blacks MDRD (S/P/Bld) [Vol rate/Area] mL/min/{1.73_m2} Normal >60 [facility] Comment on above: Result Comment: These [...] #### C DP, BMPX, MG, SUYAPA #### [employer] [address] [place] [address] General Maintenance Engineer: Giovani Stafford MD Glucose [Mass/Vol] 111 mg/dL High 70-99 [facility] Comment on above: Performed By: #### C DP, BMPX, MG, SUYAPA #### [employer] [address] [place] [address] General Maintenance Engineer: Giovani Stafford MD Potassium [Moles/Vol] 3.7 mmol/L Normal 3.7-5.[address] [facility] Comment on above: Performed By: #### C DP, BMPX, MG, SUYAPA #### [employer] [address] [place] [address] General Maintenance Engineer: Giovani Stafford MD Sodium [Moles/Vol] 130 mmol/L Low 135-144 [facility] Comment on above: Performed By: #### C DP, BMPX, MG, SUYAPA #### [employer] [address] [place] [address] General Maintenance Engineer: Giovani Stafford MD Urea nitrogen [Mass/Vol] 5 mg/dL Low 8-23 [facility] Comment on above: Performed By: #### C DP, BMPX, MG, SUYAPA #### [facility] [address] [place] [address] General Maintenance Engineer: Giovani Stafford MD CBC with Diffon 07-03-2023 Abs. Basophil 0.04 k/uL Normal 0.00-0.20 [facility] Comment on above: Performed By: #### C DP, BMPX, MG, SUYAPA #### [place] [address] General Maintenance Engineer: Giovani Stafford MD Abs.Imm.Granulocyte 0.41 k/uL High 0.00-0.30 [facility] Comment on above: Performed By: #### C DP, BMPX, MG, SUYAPA #### [place] [address] General Maintenance Engineer: Giovani Stafford MD Abs.Neutrophil (Seg) 8.03 k/uL Normal 1.50-8.10 [facility] Comment on above: Performed By: #### C DP, BMPX, MG, SUYAPA #### [place] [address] General Maintenance Engineer: Giovani Stafford MD Basophils/100 WBC (Bld) 0 % Normal 0-2 [facility] Comment on above: Performed By: #### C DP, BMPX, MG, SUYAPA #### [place] [address] General Maintenance Engineer: Giovani Stafford MD Eosinophils (Bld) [#/Vol] 0.51 10*3/uL High 0.00-0.44 [facility] Comment on above: Performed By: #### C DP, BMPX, MG, SUYAPA #### [place] [address] General Maintenance Engineer: Giovani Stafford MD Eosinophils/100 WBC (Bld) 5 % High 1-4 [facility] Comment on above: Performed By: #### C DP, BMPX, MG, SUYAPA #### [facility] [employer] [address] [place] [address] General Maintenance Engineer: Giovani Stafford MD Erythrocyte distribution width (RBC) [Ratio] 13.1 % Normal 11.8-14.4 [facility] Comment on above: Performed By: #### C DP, BMPX, MG, SUYAPA #### [facility] [employer] [address] [place] [address] General Maintenance Engineer: Giovani Stafford MD Hematocrit (Bld) [Volume fraction] 30.1 % Low 40.7-50.3 [facility] Comment on above: Performed By: #### C DP, BMPX, MG, SUYAPA #### [place] [address] General Maintenance Engineer: Giovani Stafford MD Hemoglobin (Bld) [Mass/Vol] 9.8 g/dL Low 13.0-17.0 [facility] Comment on above: Performed By: #### C DP, BMPX, MG, SUYAPA #### [place] [address] General Maintenance Engineer: Giovani Stafford MD Immature granulocytes/100 WBC (Bld) 4 % High 0 [facility] Comment on above: Performed By: #### C DP, BMPX, MG, SUYAPA #### [place] [address] General Maintenance Engineer: Giovani Stafford MD Lymphocytes (Bld) [#/Vol] 0.79 10*3/uL Low 1.10-3.70 [facility] Comment on above: Performed By: #### C DP, BMPX, MG, SUYAPA #### [facility] [employer] [address] [place] [address] General Maintenance Engineer: Giovani Stafford MD Lymphocytes/100 WBC (Bld) 7 % Low 24-43 [facility] Comment on above: Performed By: #### C DP, BMPX, MG, SUYAPA #### [address] [address] General Maintenance Engineer: Giovani Stafford MD MCH (RBC) [Entitic mass] 31.4 pg Normal 25.2-33.5 [facility] Comment on above: Performed By: #### C DP, BMPX, MG, SUYAPA #### [address] [address] General Maintenance Engineer: Giovani Stafford MD MCHC (RBC) [Mass/Vol] 32.6 g/dL Normal 28.4-34.[address] [facility] Comment on above: Performed By: #### C DP, BMPX, MG, SUYAPA #### [address] [address] General Maintenance Engineer: Giovani Stafford MD MCV (RBC) [Entitic vol] 96.5 fL Normal 82.6-102.9 [facility] Comment on above: Performed By: #### C DP, BMPX, MG, SUYAPA #### [address] [address] General Maintenance Engineer: Giovani Stafford MD Monocytes (Bld) [#/Vol] 1.08 10*3/uL Normal 0.10-1.20 [facility] Comment on above: Performed By: #### C DP, BMPX, MG, SUYAPA #### [address] [address] General Maintenance Engineer: Giovani Stafford MD Monocytes/100 WBC (Bld) 10 % Normal 3-12 [facility] Comment on above: Performed By: #### C DP, BMPX, MG, SUYAPA #### [address] [address] General Maintenance Engineer: Giovani Stafford MD Neutrophil (Seg) 74 % High 36-65 [facility] Comment on above: Performed By: #### C DP, BMPX, MG, SUYAPA #### [address] [address] General Maintenance Engineer: Giovani Stafford MD NRBC Automated 0.0 per 100 WBC Normal 0.0 [facility] Comment on above: Performed By: #### C DP, BMPX, MG, SUYAPA #### [address] [address] General Maintenance Engineer: Giovain Stafford MD Platelet mean volume (Bld) [Entitic vol] 11.0 fL Normal 8.1-13.5 [facility] Comment on above: Performed By: #### C DP, BMPX, MG, SUYAPA #### [address] [address] General Maintenance Engineer: Giovani Stafford MD Platelets (Bld) [#/Vol] 303 10*3/uL Normal 138-453 [facility] Comment on above: Performed By: #### C DP, BMPX, MG, SUYAPA #### [address] [address] General Maintenance Engineer: Giovani Stafford MD RBC (Bld) [#/Vol] 3.12 10*6/uL Low 4.21-5.77 [facility] Comment on above: Performed By: #### C DP, BMPX, MG, SUYAPA #### [address] [address] General Maintenance Engineer: Giovani Stafford MD WBC (Bld) [#/Vol] 10.9 10*3/uL Normal 3.5-11.3 [facility] Comment on above: Performed By: #### C DP, BMPX, MG, SUYAPA #### [address] [address] General Maintenance Engineer: Giovani Stafford MD Glucose,Whole Bloodon 2023 Glucose [Mass/Vol] 107 mg/dL Normal 75-110 [facility] Glucose [Mass/Vol] 203 mg/dL High 75-110 [facility] Glucose [Mass/Vol] 125 mg/dL High 75-110 [facility] Glucose [Mass/Vol] 186 mg/dL High 75-110 [facility] Glucose,Whole Bloodon 2023 Glucose [Mass/Vol] 122 mg/dL High -110 [facility] Glucose [Mass/Vol] 153 mg/dL High -110 [facility] Glucose [Mass/Vol] 214 mg/dL High 75-110 [facility] Glucose [Mass/Vol] 146 mg/dL High 75-110 [facility] Basic Metab w/rfx MGon 07-01 Anion gap [Moles/Vol] 9 mmol/L Normal 9-[address] [facility] Comment on above: Performed By: #### B MPX, CDP ####[facility] [address] [place] [address] Lab Director: Giovani Stafford MD Calcium [Mass/Vol] 7.5 mg/dL Low 8.6-10.4 [facility] Comment on above: Performed By: #### B MPX, CDP ####[facility] [address] [place] [address] Lab Director: Giovani Stafford MD Chloride [Moles/Vol] 95 mmol/L Low 98-107 [facility] Comment on above: Performed By: #### B MPX, CDP ####[facility] [address] [place] [address] Lab Director: Giovani Stafford MD CO2 [Moles/Vol] 30 mmol/L Normal 20-31 [facility] Comment on above: Performed By: #### B MPX, CDP ####[facility] [address] [place] [address] Lab Director: Giovani Stafford MD Creatinine [Mass/Vol] 0.3 mg/dL Low 0.7-1.[address] [facility] Comment on above: Performed By: #### B MPX, CDP ####[facility] [address] [place] [address] Lab Director: Giovani Stafford MD GFR/1.73 sq M.predicted among non-blacks MDRD (S/P/Bld) [Vol rate/Area] mL/min/{1.73_m2} Normal >60 [facility] Comment on above: Result Comment: These [...] secretion. Performed By: #### B MPX, CDP ####[facility] [address] [place] [address] [id number])[phone] Director: Giovani Stafford MD Glucose [Mass/Vol] 138 mg/dL High 70-99 [facility] Comment on above: Performed By: #### B MPX, CDP ####[facility] [address] [place] [address] [id number])[phone] Director: Giovani Stafford MD Potassium [Moles/Vol] 4.1 mmol/L Normal 3.7-5.[address] [facility] Comment on above: Performed By: #### B MPX, CDP ####[facility] [address] [place], [place] [phone] Director: Giovani Stafford MD Sodium [Moles/Vol] 134 mmol/L Low 135-144 [facility] Comment on above: Performed By: #### B MPX, CDP ####[facility] [address] [place] [address] Lab Director: Giovani Stafford MD Urea nitrogen [Mass/Vol] 5 mg/dL Low 8-23 [facility] Comment on above: Performed By: #### B MPX, CDP ####[facility] [address] [place] [address])[phone] Director: Giovani Stafford MD CBC with Diffon 07-01-2023 Abs. Basophil 0.04 k/uL Normal 0.00-0.20 [facility] Comment on above: Performed By: #### B MPX, CDP ####[facility] [address] [place], [place] [address])[phone] Director: Giovani Stafford MD Abs.Imm.Granulocyte 0.37 k/uL High 0.00-0.30 [facility] Comment on above: Performed By: #### B MPX, CDP ####[place], [place] [address])[phone] Director: Giovani Stafford MD Abs.Neutrophil (Seg) 9.97 k/uL High 1.50-8.10 [facility] Comment on above: Performed By: #### B MPX, CDP ####[address] [address])[phone] Director: Giovani Stafford MD Basophils/100 WBC (Bld) 0 % Normal 0-2 [facility] Comment on above: Performed By: #### B MPX, CDP ####[address] [address])[phone] Director: Giovani Stafford MD Eosinophils (Bld) [#/Vol] 0.50 10*3/uL High 0.00-0.44 [facility] Comment on above: Performed By: #### B MPX, CDP ####[facility] [address] [place], [place] [address])[phone] Director: Giovani Stafford MD Eosinophils/100 WBC (Bld) 4 % Normal 1-4 [facility] Comment on above: Performed By: #### B MPX, CDP ####[facility] [address] [place] [address] Lab Director: Giovani Stafford MD Erythrocyte distribution width (RBC) [Ratio] 12.8 % Normal 11.8-14.4 [facility] Comment on above: Performed By: #### B MPX, CDP ####[facility] [address] [place] [address])[phone] Director: Giovani Stafford MD Hematocrit (Bld) [Volume fraction] 29.0 % Low 40.7-50.3 [facility] Comment on above: Performed By: #### B MPX, CDP ####[facility] [address] [place] [address])[phone] Director: Giovani Stafford MD Hemoglobin (Bld) [Mass/Vol] 9.4 g/dL Low 13.0-17.0 [facility] Comment on above: Performed By: #### B MPX, CDP ####[facility] [address] [place] [address])[phone] Director: Giovani Stafford MD Immature granulocytes/100 WBC (Bld) 3 % High 0 [facility] Comment on above: Performed By: #### B MPX, CDP ####[facility] [address] [place] [address])[phone] Director: Giovani Stafford MD Lymphocytes (Bld) [#/Vol] 0.82 10*3/uL Low 1.10-3.70 [facility] Comment on above: Performed By: #### B MPX, CDP ####[facility] [address] [place] [address] [id number])[phone] Director: Giovani Stafford MD Lymphocytes/100 WBC (Bld) 6 % Low 24-43 [facility] Comment on above: Performed By: #### B MPX, CDP ####[facility] [address] [place], [place] [id number])[phone] Director: Giovani Stafford MD MCH (RBC) [Entitic mass] 30.8 pg Normal 25.2-33.5 [facility] Comment on above: Performed By: #### B MPX, CDP ####[facility] [address] [place], [place] [id number])[phone] Director: Giovani Stafford MD MCHC (RBC) [Mass/Vol] 32.4 g/dL Normal 28.4-34.[address] [facility] Comment on above: Performed By: #### B MPX, CDP ####[facility] [address] [place] [address] [id number])[phone] Director: Giovani Stafford MD MCV (RBC) [Entitic vol] 95.1 fL Normal 82.6-102.9 [facility] Comment on above: Performed By: #### B MPX, CDP ####[facility] [address] [place] [address] [id number])[phone] Director: Giovani Stafford MD Monocytes (Bld) [#/Vol] 1.16 10*3/uL Normal 0.10-1.20 [facility] Comment on above: Performed By: #### B MPX, CDP ####[facility] [address] [place] [address] [id number])[phone] Director: Giovani Stafford MD Monocytes/100 WBC (Bld) 9 % Normal 3-12 [facility] Comment on above: Performed By: #### B MPX, CDP ####[facility] [address] [place] [address] [id number])[phone] Director: Giovani Stafford MD Neutrophil (Seg) 78 % High 36-65 [facility] Comment on above: Performed By: #### B MPX, CDP ####[facility] [address] [place], [place] [id number])[phone] Director: Giovani Stafford MD NRBC Automated 0.0 per 100 WBC Normal 0.0 [facility] Comment on above: Performed By: #### B MPX, CDP ####[facility] [address] [place], [place] [id number])[phone] Director: Giovani Stafford MD Platelet mean volume (Bld) [Entitic vol] 10.6 fL Normal 8.1-13.5 [facility] Comment on above: Performed By: #### B MPX, CDP ####[facility] [address] [place], [place] [id number])[phone] Director: Giovani Stafford MD Platelets (Bld) [#/Vol] 289 10*3/uL Normal 138-453 [facility] Comment on above: Performed By: #### B MPX, CDP ####[facility] [address] [place] [address] Lab Director: Giovani Stafford MD RBC (Bld) [#/Vol] 3.05 10*6/uL Low 4.21-5.77 [facility] Comment on above: Performed By: #### B MPX, CDP ####[facility] [address] [place] [address] Lab Director: Giovani Stafford MD WBC (Bld) [#/Vol] 12.9 10*3/uL High 3.5-11.3 [facility] Comment on above: Performed By: #### B MPX, CDP ####[facility] [address] [place], [place] [phone] Director: Giovani Stafford MD Cult,Bloodon 07-01-2023 Cult,Blood Specimen Description .BLOOD Special Requests L FOREARM 6ML Culture NO GROWTH 5 DAYS Report Status FINAL 07/01/2023 Normal [facility] Comment on above: Performed By: #### C DP, BMPX, MG, SUYAPA #### [facility] [address] [place], [place] [phone] General Maintenance Engineer: Giovani Stafford MD Cult,Blood Specimen Description .BLOOD Special Requests R FOREARM 2ML Culture NO GROWTH 5 DAYS Report Status FINAL 07/01/2023 Normal [facility] Comment on above: Performed By: #### B C ####[address] [address] Lab Director: Giovani Stafford MD Glucose,Whole Bloodon 2023 Glucose [Mass/Vol] 126 mg/dL High 75-110 [facility] Glucose [Mass/Vol] 208 mg/dL High 75-110 [facility] Glucose [Mass/Vol] 182 mg/dL High 75-110 [facility] Glucose [Mass/Vol] 151 mg/dL High 75-110 [facility] Basic Metab w/rfx MGon 06-30 Anion gap [Moles/Vol] 8 mmol/L Low 9-[address] [facility] Comment on above: Performed By: #### PINA SANTANATE, B12FOL, MG #### [facility] [employer] [address] [place] [address] General Maintenance Engineer: Giovani Stafford MD Calcium [Mass/Vol] 7.6 mg/dL Low 8.6-10.4 [facility] Comment on above: Performed By: #### R PINA BATEMANTE, B12FOL, MG #### [facility] [address] [place] [address] General Maintenance Engineer: Giovani Stafford MD Chloride [Moles/Vol] 95 mmol/L Low 98-107 [facility] Comment on above: Performed By: #### R EJEC LYTE, B12FOL, MG #### [facility] [employer] [address] [place] [address] General Maintenance Engineer: Giovani Stafford MD CO2 [Moles/Vol] 31 mmol/L Normal 20-31 [facility] Comment on above: Performed By: #### R EJEC, LYTE, B12FOL, MG #### [facility] [address] [place] [address] General Maintenance Engineer: Giovani Stafford MD Creatinine [Mass/Vol] 0.3 mg/dL Low 0.7-1.[address] [facility] Comment on above: Performed By: #### R EJEC, LYTE, B12FOL, MG #### [address] [address] General Maintenance Engineer: Giovani Stafford MD GFR/1.73 sq M.predicted among non-blacks MDRD (S/P/Bld) [Vol rate/Area] mL/min/{1.73_m2} Normal >60 [facility] Comment on above: Result Comment: These [...] #### R EJEC, LYTE, B12FOL, MG #### [address] [address] General Maintenance Engineer: Giovani Stafford MD Glucose [Mass/Vol] 125 mg/dL High 70-99 [facility] Comment on above: Performed By: #### R EJEC, LYTE, B12FOL, MG #### [facility] [employer] [address] [place] [address] General Maintenance Engineer: Giovani Stafford MD Potassium [Moles/Vol] 2.9 mmol/L Critically low 3.7-5.3 [facility] Comment on above: Performed By: #### R EJEC, LYTE, B12FOL, MG #### [facility] [employer] [address] [place] [address] General Maintenance Engineer: Giovani Stafford MD Sodium [Moles/Vol] 134 mmol/L Low 135-144 [facility] Comment on above: Performed By: #### R ALVA BATEMAN B12FOL, MG #### [facility] [employer] [address] [place] [address] General Maintenance Engineer: Giovani Stafford MD Urea nitrogen [Mass/Vol] 10 mg/dL Normal 8- [facility] Comment on above: Performed By: #### R BHAVANA LYTE, B12FOL, MG #### [facility] [employer] [address] [place] [address] General Maintenance Engineer: Giovani Stafford MD CBC with Diffon 06-30-2023 Abs. Basophil 0.00 k/uL Normal 0.0-0.2 [facility] Comment on above: Performed By: #### R ALVA BATEMAN B12FOL, MG #### [facility] [employer] [address] [place] [address] General Maintenance Engineer: Giovani Stafford MD Abs.Imm.Granulocyte 0.00 k/uL Normal 0.00-0.30 [facility] Comment on above: Performed By: #### PINA SANTANATE, B12FOL, MG #### [facility] [employer] [address] [place] [address] General Maintenance Engineer: Giovani Stafford MD Abs.Neutrophil (Seg) 11.57 k/uL High 1.8-7.7 [facility] Comment on above: Performed By: #### R PINA BATEMANTE, B12FOL, MG #### [facility] [employer] [address] [place] [address] General Maintenance Engineer: Giovani Stafford MD Basophils/100 WBC (Bld) 0 % Normal 0-2 [facility] Comment on above: Performed By: #### R PINA BATEMANTE, B12FOL, MG #### [facility] [employer] [address] [place] [address] General Maintenance Engineer: Giovani Stafford MD Eosinophils (Bld) [#/Vol] 0.00 10*3/uL Normal 0.0-0.4 [facility] Comment on above: Performed By: #### R EJEC, LYTE, B12FOL, MG #### [address] [address] General Maintenance Engineer: Giovani Stafford MD Eosinophils/100 WBC (Bld) 0 % Low 1-4 [facility] Comment on above: Performed By: #### R EJEC, LYTE, B12FOL, MG #### [place] [address] General Maintenance Engineer: Giovani Stafford MD Erythrocyte distribution width (RBC) [Ratio] 13.0 % Normal 11.8-14.4 [facility] Comment on above: Performed By: #### R EJEC, LYTE, B12FOL, MG #### [place] [address] General Maintenance Engineer: Giovani Stafford MD Hematocrit (Bld) [Volume fraction] 29.6 % Low 40.7-50.3 [facility] Comment on above: Performed By: #### R EJKYRA LYTE, B12FOL, MG #### [place] [address] General Maintenance Engineer: Giovani Stafford MD Hemoglobin (Bld) [Mass/Vol] 9.6 g/dL Low 13.0-17.0 [facility] Comment on above: Performed By: #### R EJEC LYTE, B12FOL, MG #### [place] [address] General Maintenance Engineer: Giovani Stafford MD Immature granulocytes/100 WBC (Bld) 0 % Normal 0 [facility] Comment on above: Performed By: #### R EJEC, LYTE, B12FOL, MG #### [address] [address] General Maintenance Engineer: Giovani Stafford MD Lymphocytes (Bld) [#/Vol] 0.52 10*3/uL Low 1.0-4.8 [facility] Comment on above: Performed By: #### R EJKYRA LYTE, B12FOL, MG #### [place] [address] General Maintenance Engineer: Giovani Stafford MD Lymphocytes/100 WBC (Bld) 4 % Low 24-44 [facility] Comment on above: Performed By: #### R EJKYRA LYTE, B12FOL, MG #### [place] [address] General Maintenance Engineer: Giovani Stafford MD MCH (RBC) [Entitic mass] 31.5 pg Normal 25.2-33.5 [facility] Comment on above: Performed By: #### R BHAVANA LYTE, B12FOL, MG #### [place] [address] General Maintenance Engineer: Giovani Stafford MD MCHC (RBC) [Mass/Vol] 32.4 g/dL Normal 28.4-34.[address] [facility] Comment on above: Performed By: #### R BHAVANA LYTE, B12FOL, MG #### [place] [address] General Maintenance Engineer: Giovani Stafford MD MCV (RBC) [Entitic vol] 97.0 fL Normal 82.6-102.9 [facility] Comment on above: Performed By: #### R EJEC LYTE, B12FOL, MG #### [address] [address] General Maintenance Engineer: Giovani Stafford MD Monocytes (Bld) [#/Vol] 0.91 10*3/uL High 0.1-0.8 [facility] Comment on above: Performed By: #### R EJEC, LYTE, B12FOL, MG #### [address] [address] General Maintenance Engineer: Giovani Stafford MD Monocytes/100 WBC (Bld) 7 % Normal 1-7 [facility] Comment on above: Performed By: #### R EJEC, LYTE, B12FOL, MG #### [address] [address] General Maintenance Engineer: Giovani Stafford MD Morphology Ambrose (Bld) [Interp] Normal Normal [facility] Comment on above: Performed By: #### R EJKYRA, LYTE, B12FOL, MG #### [address] [address] General Maintenance Engineer: Giovani Stafford MD Neutrophil (Seg) 89 % High 36-66 [facility] Comment on above: Performed By: #### R EJKYRA, LYTE, B12FOL, MG #### [address] [address] General Maintenance Engineer: Giovani Stafford MD NRBC Automated 0.0 per 100 WBC Normal 0.0 [facility] Comment on above: Performed By: #### R EJKYRA LYTE, B12FOL, MG #### [address] [address] General Maintenance Engineer: Giovani Stafford MD Platelet mean volume (Bld) [Entitic vol] 11.0 fL Normal 8.1-13.5 [facility] Comment on above: Performed By: #### R EJEC, LYTE, B12FOL, MG #### [address] [address] General Maintenance Engineer: Giovani Stafford MD Platelets (Bld) [#/Vol] 265 10*3/uL Normal 138-453 [facility] Comment on above: Performed By: #### R EJEC, LYTE, B12FOL, MG #### [employer] [address] [place] [address] General Maintenance Engineer: Giovani Stafford MD RBC (d) [#/Vol] 3.05 10*6/uL Low 4.21-5.77 [facility] Comment on above: Performed By: #### R EJEC, LYTE, B12FOL, MG #### [employer] [address] [place] [address] General Maintenance Engineer: Giovani Stafford MD WBC (Bld) [#/Vol] 13.0 10*3/uL High 3.5-11.3 [facility] Comment on above: Performed By: #### R EJEC, LYTE, B12FOL, MG #### [employer] [address] [place] [address] General Maintenance Engineer: Giovani Stafford MD Glucose,Whole Bloodon 2023 Glucose [Mass/Vol] 128 mg/dL High 75-110 [facility] Glucose [Mass/Vol] 189 mg/dL High 75-110 [facility] Glucose [Mass/Vol] 155 mg/dL High 75-110 [facility] Glucose [Mass/Vol] 163 mg/dL High 75-110 [facility] Magnesiumon 06-30-2023 Magnesium [Mass/Vol] 1.5 mg/dL Low 1.6-2.6 [facility] Comment on above: Performed By: #### R EJPINA RAETE, B12FOL, MG #### [employer] [address] [place] [address] General Maintenance Engineer: Giovani Stafford MD Procalcitoninon 06-30-2023 Procalcitonin 0.11 ng/mL High <0.09 [facility] Comment on above: Result Comment: Suspected [...] entered into the Change in Procalcitonin Calculator ([email or web address]) to determine the patient's Mortality Risk Prognosis In healthy neonates, plasma Procalcitonin (PCT) concentrations increase gradually after , reaching peak values at about 24 hours of age then decrease to normal values below 0.5 ng/mL by 48-72 hours of age. Performed By: #### R ALVA BATEMAN, B12FOL, MG #### [employer] [address] [place] [address] General Maintenance Engineer: Giovani Stafford MD Basic Metab w/rfx MGon 06-29 Anion gap [Moles/Vol] 10 mmol/L Normal 9-[address] [facility] Comment on above: Performed By: #### KAYLA Gillis, BMPX ####[employer] [address] [place] [address] Lab Director: Giovani Stafford MD Calcium [Mass/Vol] 7.9 mg/dL Low 8.6-10.4 [facility] Comment on above: Performed By: #### M Kera CDP, BMPX ####[employer] [address] [place] [address] Lab Director: Giovani Stafford MD Chloride [Moles/Vol] 99 mmol/L Normal 98-107 [facility] Comment on above: Performed By: #### M Kera CDP, BMPX ####[employer] [address] [place] [address] Lab Director: Giovani Stafford MD CO2 [Moles/Vol] 30 mmol/L Normal 20-31 [facility] Comment on above: Performed By: #### M KAYLA Cote, BMPX ####[facility] [address] [place] [address] Lab Director: Giovani Stafford MD Creatinine [Mass/Vol] 0.4 mg/dL Low 0.7-1.[address] [facility] Comment on above: Performed By: #### M KAYLA Cote, BMPX ####[facility] [address] [place] [address] Lab Director: Giovani Stafford MD GFR/1.73 sq M.predicted among non-blacks MDRD (S/P/Bld) [Vol rate/Area] mL/min/{1.73_m2} Normal >60 [facility] Comment on above: Result Comment: These [...] renal tubular secretion. Performed By: #### M KAYLA Cote, BMPX ####[facility] [address] [place] [address] Lab Director: Giovani Stafford MD Glucose [Mass/Vol] 84 mg/dL Normal 70-99 [facility] Comment on above: Performed By: #### M KAYLA Cote, BMPX ####[facility] [address] [place] [address] Lab Director: Giovani Stafford MD Potassium [Moles/Vol] 3.3 mmol/L Low 3.7-5.[address] [facility] Comment on above: Performed By: #### M Kera, KAYLA, BMPX ####[facility] [address] [place], [place] [phone] Director: Giovani Stafford MD Sodium [Moles/Vol] 139 mmol/L Normal 135-144 [facility] Comment on above: Performed By: #### Leonela Cote, CDP, BMPX ####[place] [address] [place], [place] [phone] Director: Giovani Stafford MD Urea nitrogen [Mass/Vol] 18 mg/dL Normal 8-23 [facility] Comment on above: Performed By: #### Leonela Cote, CDP, BMPX ####[address] [address])[phone] Director: Giovani Stafford MD CBC with Diffon 06-29-2023 Abs. Basophil 0.00 k/uL Normal 0.00-0.20 [facility] Comment on above: Performed By: #### KAYLA Gillis, BMPX ####[address] [address])[phone] Director: Giovani Stafford MD Abs.Imm.Granulocyte 0.13 k/uL Normal 0.00-0.30 [facility] Comment on above: Performed By: #### Leonela Cote, KAYLA, BMPX ####[address] [address])[phone] Director: Giovani Stafford MD Abs.Neutrophil (Seg) 10.74 k/uL High 1.50-8.10 [facility] Comment on above: Performed By: #### Leonela Cote, CDP, BMPX ####[facility] [address] [place], [place] [address])[phone] Director: Giovani Stafford MD Basophils/100 WBC (Bld) 0 % Normal 0-2 [facility] Comment on above: Performed By: #### Leonela Cote, CDP, BMPX ####[address] [address] Lab Director: Giovani Stafford MD Eosinophils (Bld) [#/Vol] 0.00 10*3/uL Normal 0.00-0.44 [facility] Comment on above: Performed By: #### M G, CDP, BMPX ####[facility] [address] [place], [place] [phone] Director: Giovani Stafford MD Eosinophils/100 WBC (Bld) 0 % Low 1-4 [facility] Comment on above: Performed By: #### M Kera, CDP, BMPX ####[facility] [address] [place], [place] [address])[phone] Director: Giovani Stafford MD Erythrocyte distribution width (RBC) [Ratio] 13.2 % Normal 11.8-14.4 [facility] Comment on above: Performed By: #### Leonela Cote, CDP, BMPX ####[facility] [address] [place], [place] [address])[phone] Director: Giovani Stafford MD Hematocrit (Bld) [Volume fraction] 29.7 % Low 40.7-50.3 [facility] Comment on above: Performed By: #### M Kera, CDP, BMPX ####[facility] [address] [place], [place] [address])[phone] Director: Giovani Stafford MD Hemoglobin (Bld) [Mass/Vol] 9.6 g/dL Low 13.0-17.0 [facility] Comment on above: Performed By: #### M Kera, CDP, BMPX ####[facility] [address] [place], [place] [id number])[phone] Director: Giovani Stafford MD Immature granulocytes/100 WBC (Bld) 1 % High 0 [facility] Comment on above: Performed By: #### M Kera, CDP, BMPX ####[facility] [address] [place] [address] Lab Director: Giovani Stafford MD Lymphocytes (Bld) [#/Vol] 0.63 10*3/uL Low 1.10-3.70 [facility] Comment on above: Performed By: #### KAYLA Gillis, BMPX ####[facility] [address] [place], [place] [id number])[phone] Director: Giovani Stafford MD Lymphocytes/100 WBC (Bld) 5 % Low 24-43 [facility] Comment on above: Performed By: #### Leonela Cote, CDP, BMPX ####[facility] [address] [place], [place] [phone] Director: Giovani Stafford MD MCH (RBC) [Entitic mass] 31.3 pg Normal 25.2-33.5 [facility] Comment on above: Performed By: #### KAYLA Gillis, BMPX ####[facility] [address] [place] [address] Lab Director: Giovani Stafford MD MCHC (RBC) [Mass/Vol] 32.3 g/dL Normal 28.4-34.[address] [facility] Comment on above: Performed By: #### KAYLA Gillis, BMPX ####[facility] [address] [place] [address] Lab Director: Giovani Stafford MD MCV (RBC) [Entitic vol] 96.7 fL Normal 82.6-102.9 [facility] Comment on above: Performed By: #### Leonela Cote, KAYLA, BMPX ####[facility] [address] [place], [place] [phone])[phone] Director: Giovani Stafford MD Monocytes (Bld) [#/Vol] 1.00 10*3/uL Normal 0.10-1.20 [facility] Comment on above: Performed By: #### Leonela Cote, KAYLA, BMPX ####[facility] [address] [place], [place] [id number])[phone] Director: Giovani Stafford MD Monocytes/100 WBC (Bld) 8 % Normal 3-12 [facility] Comment on above: Performed By: #### M KAYLA Cote, BMPX ####[facility] [address] [place] [address] Lab Director: Giovani Stafford MD Morphology Ambrose (Bld) [Interp] Normal Normal [facility] Comment on above: Performed By: #### Leonela Cote CDP, BMPX ####[facility] [address] [place] [address] Lab Director: Giovani Stafford MD Neutrophil (Seg) 86 % High 36-65 [facility] Comment on above: Performed By: #### KAYLA Gillis, BMPX ####[address] [address] Lab Director: Giovani Stafford MD NRBC Automated 0.0 per 100 WBC Normal 0.0 [facility] Comment on above: Performed By: #### KAYLA Gillis, BMPX ####[address] [address] Lab Director: Giovani Stafford MD Platelet mean volume (Bld) [Entitic vol] 10.9 fL Normal 8.1-13.5 [facility] Comment on above: Performed By: #### KAYLA Gillis, BMPX ####[facility] [address] [place] [address] Lab Director: Giovani Stafford MD Platelets (Bld) [#/Vol] 263 10*3/uL Normal 138-453 [facility] Comment on above: Performed By: #### KAYLA Gillis, BMPX ####[facility] [address] [place] [address] Lab Director: Giovani Stafford MD RBC (Bld) [#/Vol] 3.07 10*6/uL Low 4.21-5.77 [facility] Comment on above: Performed By: #### M KAYLA Cote, BMPX ####[facility] [address] [place] [address] lab Director: Giovani Stafford MD WBC (Bld) [#/Vol] 12.5 10*3/uL High 3.5-11.3 [facility] Comment on above: Performed By: #### Leonela KAYLA Cote BMPX ####[facility] [address] [place] [address] lab Director: Giovani Stafford MD FL MODIFIED BARIUM SWALLOW W VIDEOon 06-29-2023 FL MODIFIED BARIUM SWALLOW W VIDEO EXAMINATION: MODIFIED BARIUM SWALLOW WAS PERFORMED IN CONJUNCTION WITH [employer]ECH PATH[employer] TECHNIQUE: Under fluoroscopic evaluation cineradiography/vide oradiography recordings were performed in conjunction with the speech-language pathologist (PIPE OUT WORKER). Various liquid, solid and/or semi-solid barium preparations [...] Beto Canales MD 06/29/23 Final result Normal [facility] Glucose,Whole Bloodon 2023 Glucose [Mass/Vol] 76 mg/dL Normal 75-110 [facility] Glucose [Mass/Vol] 87 mg/dL Normal 75-110 [facility] Glucose [Mass/Vol] 72 mg/dL Low 75-110 [facility] Glucose [Mass/Vol] 231 mg/dL High 75-110 [facility] Hgb/Hcton 06-29-2023 Hematocrit (Bld) [Volume fraction] 29.8 % Low 40.7-50.3 [facility] Comment on above: Performed By: #### R EJEC LYTE, B12FOL, MG #### [facility] [address] [place] [address] General Maintenance Engineer: Giovani Stafford MD Hemoglobin (Bld) [Mass/Vol] 9.8 g/dL Low 13.0-17.0 [facility] Comment on above: Performed By: #### R PINA BATEMANTE, B12FOL, MG #### [facility] [address] [place] [address] General Maintenance Engineer: Giovani Stafford MD Magnesiumon 3 Magnesium [Mass/Vol] 1.4 mg/dL Low 1.6-2.6 [facility] Comment on above: Performed By: #### M G, CDP, BMPX ####[facility] [address] [place] [address] Lab Director: Giovani Stafford MD Basic Metab w/rfx MGon 06-289 Anion gap [Moles/Vol] 9 mmol/L Normal 9-[address] [facility] Comment on above: Performed By: #### C DP, BMPX, MG, SUYAPA #### [facility] [address] [place] [address] General Maintenance Engineer: Giovani Stafford MD Calcium [Mass/Vol] 8.3 mg/dL Low 8.6-10.4 [facility] Comment on above: Performed By: #### C DP, BMPX, MG, SUYAPA #### [facility] [address] [place] [address] General Maintenance Engineer: Giovani Stafford MD Chloride [Moles/Vol] 101 mmol/L Normal 98-107 [facility] Comment on above: Performed By: #### C DP, BMPX, MG, SUYAPA #### [facility] [address] General Maintenance Engineer: Giovani Stafford MD CO2 [Moles/Vol] 26 mmol/L Normal 20-31 [facility] Comment on above: Performed By: #### C DP, BMPX, MG, SUYAPA #### [address] [address] General Maintenance Engineer: Giovani Stafford MD Creatinine [Mass/Vol] 0.5 mg/dL Low 0.7-1.[address] [facility] Comment on above: Performed By: #### C DP, BMPX, MG, SUYAPA #### [address] [address] General Maintenance Engineer: Giovani Stafford MD GFR/1.73 sq M.predicted among non-blacks MDRD (S/P/Bld) [Vol rate/Area] mL/min/{1.73_m2} Normal >60 [facility] Comment on above: Result Comment: These [...] #### C DP, BMPX, MG, SUYAPA #### [address] [address] General Maintenance Engineer: Giovani Stafford MD Glucose [Mass/Vol] 103 mg/dL High 70-99 [facility] Comment on above: Performed By: #### C DP, BMPX, MG, SUYAPA #### [address] [address] General Maintenance Engineer: Giovani Stafford MD Potassium [Moles/Vol] 4.3 mmol/L Normal 3.7-5.[address] [facility] Comment on above: Result Comment: SPEC IMEN MODERATELY HEMOLYZED, RESULTS MAY BE ADVERSELY AFFECTED Performed By: #### C DP, BMPX, MG, SUYAPA #### [place] [address] General Maintenance Engineer: Giovani Stafford MD Sodium [Moles/Vol] 136 mmol/L Normal 135-144 [facility] Comment on above: Performed By: #### C DP, BMPX, MG, SUYAPA #### [facility] [employer] [address] [place] [address] General Maintenance Engineer: Giovani Stafford MD Urea nitrogen [Mass/Vol] 22 mg/dL Normal 8-23 [facility] Comment on above: Performed By: #### C DP, BMPX, MG, SUYAPA #### [place] [address] General Maintenance Engineer: Giovani Stafford MD CBC with Diffon 06-28-2023 Abs. Basophil <0.03 Normal 0.00-0.20 [facility] Comment on above: Performed By: #### C DP, BMPX, MG, SUYAPA #### [place] [address] General Maintenance Engineer: Giovani Stafford MD Abs. Eosinophil <0.03 Normal 0.00-0.44 [facility] Comment on above: Performed By: #### C DP, BMPX, MG, SUYAPA #### [facility] [employer] [address] [place] [address] General Maintenance Engineer: Giovani Stafford MD Abs.Imm.Granulocyte 0.11 k/uL Normal 0.00-0.30 [facility] Comment on above: Performed By: #### C DP, BMPX, MG, SUYAPA #### [facility] [employer] [address] [place] [address] General Maintenance Engineer: Giovani Stafford MD Abs.Neutrophil (Seg) 9.05 k/uL High 1.50-8.10 [facility] Comment on above: Performed By: #### C DP, BMPX, MG, SUYAPA #### [address] [address] General Maintenance Engineer: Giovani Stafford MD Basophils/100 WBC (Bld) 0 % Normal 0-2 [facility] Comment on above: Performed By: #### C DP, BMPX, MG, SUYAPA #### [place] [address] General Maintenance Engineer: Giovani Stafford MD Eosinophils/100 WBC (Bld) 0 % Low 1-4 [facility] Comment on above: Performed By: #### C DP, BMPX, MG, SUYAPA #### [place] [address] General Maintenance Engineer: Giovani Stafford MD Erythrocyte distribution width (RBC) [Ratio] 13.5 % Normal 11.8-14.4 [facility] Comment on above: Performed By: #### C DP, BMPX, MG, SUYAPA #### [place] [address] General Maintenance Engineer: Giovani Stafford MD Hematocrit (Bld) [Volume fraction] 30.6 % Low 40.7-50.3 [facility] Comment on above: Performed By: #### C DP, BMPX, MG, SUYAPA #### [place] [address] General Maintenance Engineer: Giovani Stafford MD Hemoglobin (Bld) [Mass/Vol] 10.4 g/dL Low 13.0-17.0 [facility] Comment on above: Performed By: #### C DP, BMPX, MG, SUYAPA #### [facility] [employer] [address] [place] [address] General Maintenance Engineer: Giovani Stafford MD Immature granulocytes/100 WBC (Bld) 1 % High 0 [facility] Comment on above: Performed By: #### C DP, BMPX, MG, SUYAPA #### [facility] [address] [place] [phone] General Maintenance Engineer: Giovani Stafford MD Lymphocytes (Bld) [#/Vol] 0.93 10*3/uL Low 1.10-3.70 [facility] Comment on above: Performed By: #### C DP, BMPX, MG, SUYAPA #### [address] [address] General Maintenance Engineer: Giovani Stafford MD Lymphocytes/100 WBC (Bld) 8 % Low 24-43 [facility] Comment on above: Performed By: #### C DP, BMPX, MG, SUYAPA #### [place] [address] General Maintenance Engineer: Giovani Stafford MD MCH (RBC) [Entitic mass] 32.1 pg Normal 25.2-33.5 [facility] Comment on above: Performed By: #### C DP, BMPX, MG, SUYAPA #### [place] [address] General Maintenance Engineer: Giovani Stafford MD MCHC (RBC) [Mass/Vol] 34.0 g/dL Normal 28.4-34.[address] [facility] Comment on above: Performed By: #### C DP, BMPX, MG, SUYAPA #### [address] [address] General Maintenance Engineer: Giovani Stafford MD MCV (RBC) [Entitic vol] 94.4 fL Normal 82.6-102.9 [facility] Comment on above: Performed By: #### C DP, BMPX, MG, SUYAPA #### [address] [address] General Maintenance Engineer: Giovani Stafford MD Monocytes (Bld) [#/Vol] 1.09 10*3/uL Normal 0.10-1.20 [facility] Comment on above: Performed By: #### C DP, BMPX, MG, SUYAPA #### [address] [address] General Maintenance Engineer: Giovani Stafford MD Monocytes/100 WBC (Bld) 10 % Normal 3-12 [facility] Comment on above: Performed By: #### C DP, BMPX, MG, SUYAPA #### [address] [address] General Maintenance Engineer: Giovani Stafford MD Neutrophil (Seg) 81 % High 36-65 [facility] Comment on above: Performed By: #### C DP, BMPX, MG, SUYAPA #### [address] [address] General Maintenance Engineer: Giovani Stafford MD NRBC Automated 0.0 per 100 WBC Normal 0.0 [facility] Comment on above: Performed By: #### C DP, BMPX, MG, SUYAPA #### [address] [address] General Maintenance Engineer: Giovani Stafford MD Platelet mean volume (Bld) [Entitic vol] 11.8 fL Normal 8.1-13.5 [facility] Comment on above: Performed By: #### C DP, BMPX, MG, SUYAPA #### [address] [address] General Maintenance Engineer: Giovani Stafford MD Platelets (Bld) [#/Vol] 239 10*3/uL Normal 138-453 [facility] Comment on above: Performed By: #### C DP, BMPX, MG, SUYAPA #### [address] [address] General Maintenance Engineer: Giovani Stafford MD RBC (Bld) [#/Vol] 3.24 10*6/uL Low 4.21-5.77 [facility] Comment on above: Performed By: #### C DP, BMPX, MG, SUYAPA #### [facility] [address] [place] [address] General Maintenance Engineer: Giovani Stafford MD WBC (Bld) [#/Vol] 11.2 10*3/uL Normal 3.5-11.3 [facility] Comment on above: Performed By: #### C DP, BMPX, MG, SUYAPA #### [facility] [address] [place] [address] General Maintenance Engineer: Giovani Stafford MD Glucose,Whole Bloodon 2023 Glucose [Mass/Vol] 120 mg/dL High 75-110 [facility] Glucose [Mass/Vol] 103 mg/dL Normal 75-110 [facility] Glucose [Mass/Vol] 96 mg/dL Normal 75-110 [facility] Glucose [Mass/Vol] 95 mg/dL Normal 75-110 [facility] Hgb/Hcton 06-28-2023 Hematocrit (Bld) [Volume fraction] 31.6 % Low 40.7-50.3 [facility] Comment on above: Performed By: #### R EJEC, LYTE, B12FOL, MG #### [facility] [address] [place] [address] General Maintenance Engineer: Giovani Stafford MD Hematocrit (Bld) [Volume fraction] 32.4 % Low 40.7-50.3 [facility] Comment on above: Performed By: #### H H ####[facility] [place] [address] Lab Director: Giovani Stafford MD Hematocrit (Bld) [Volume fraction] 31.7 % Low 40.7-50.3 [facility] Comment on above: Performed By: #### C DP, BMPX, MG, SUYAPA #### [facility] [address] [place] [address] General Maintenance Engineer: Giovani Stafford MD Hemoglobin (Bld) [Mass/Vol] 10.2 g/dL Low 13.0-17.0 [facility] Comment on above: Performed By: #### R EJEC, LYTE, B12FOL, MG #### [facility] [employer] [address] [place] [address] General Maintenance Engineer: Giovani Stafford MD Hemoglobin (Bld) [Mass/Vol] 10.0 g/dL Low 13.0-17.0 [facility] Comment on above: Performed By: #### H H ####[address] [address] Lab Director: Giovani Stafford MD Hemoglobin (Bld) [Mass/Vol] 10.0 g/dL Low 13.0-17.0 [facility] Comment on above: Performed By: #### C DP, BMPX, MG, SUYAPA #### [facility] [employer] [address] [place] [address] General Maintenance Engineer: Giovani Stafford MD Magnesiumon 06-28-2023 Magnesium [Mass/Vol] 2.1 mg/dL Normal 1.6-2.6 [facility] Comment on above: Performed By: #### C DP, BMPX, MG, SUYAPA #### [facility] [employer] [address] [place] [address] General Maintenance Engineer: Giovani Stafford MD Phosphorus, Inorg.on 024 Phosphorus, Inorg. 2.4 mg/dL Low 2.5-4.5 [facility] Comment on above: Performed By: #### C DP, BMPX, MG, SUYAPA #### [facility] [employer] [address] [place] [address] General Maintenance Engineer: Giovani Stafford MD XR CHEST PORTABLEon 06-28-19 24 XR CHEST PORTABLE EXAMINATION: ONE XRAY VIEW [...] by: Phyllis Nixon MD Signed by: Phyllis Nixno MD 06/28/23 Final result Normal [facility] Basic Metab w/rfx MGon 06-27 Anion gap [Moles/Vol] 7 mmol/L Low 9-17 [facility] Comment on above: Performed By: #### R EJKYRA LYTE, B12FOL, MG #### [employer] [address] [place] [address] [phone] General Maintenance Engineer: Giovani Stafford MD Anion gap [Moles/Vol] 7 mmol/L Low 9-17 [facility] Comment on above: Performed By: #### R BHAVANA LYTE, B12FOL, MG #### [facility] [address] [place] [address] General Maintenance Engineer: Giovani Stafford MD Calcium [Mass/Vol] 8.4 mg/dL Low 8.6-10.4 [facility] Comment on above: Performed By: #### R EJPINA RAETE, B12FOL, MG #### [employer] [address] [place] [address] General Maintenance Engineer: Giovani Stafford MD Calcium [Mass/Vol] 8.3 mg/dL Low 8.6-10.4 [facility] Comment on above: Performed By: #### R EJEC LYTE, B12FOL, MG #### [employer] [address] [place] [address] [phone] General Maintenance Engineer: Giovani Stafford MD Chloride [Moles/Vol] 103 mmol/L Normal 98-107 [facility] Comment on above: Performed By: #### R EJEC, LYTE, B12FOL, MG #### [facility] [address] [place] [phone] General Maintenance Engineer: Giovani Stafford MD Chloride [Moles/Vol] 103 mmol/L Normal 98-107 [facility] Comment on above: Performed By: #### R EJEC, LYTE, B12FOL, MG #### [facility] [address] [place] [address] General Maintenance Engineer: Giovani Stafford MD CO2 [Moles/Vol] 25 mmol/L Normal 20-31 [facility] Comment on above: Performed By: #### R EJEC, LYTE, B12FOL, MG #### [facility] [address] [place] [address] General Maintenance Engineer: Giovani Stafford MD CO2 [Moles/Vol] 26 mmol/L Normal 20-31 [facility] Comment on above: Performed By: #### R EJEC, LYTE, B12FOL, MG #### [facility] [employer] [address] [place] [address] General Maintenance Engineer: Giovani Stafford MD Creatinine [Mass/Vol] 0.5 mg/dL Low 0.7-1.[address] [facility] Comment on above: Performed By: #### R EJEC, LYTE, B12FOL, MG #### [facility] [address] [place] [address] General Maintenance Engineer: Giovani Stafford MD Creatinine [Mass/Vol] 0.4 mg/dL Low 0.7-1.[address] [facility] Comment on above: Performed By: #### R EJEC, LYTE, B12FOL, MG #### [facility] [address] [place] [phone] General Maintenance Engineer: Giovani Stafford MD GFR/1.73 sq M.predicted among non-blacks MDRD (S/P/Bld) [Vol rate/Area] mL/min/{1.73_m2} Normal >60 [facility] Comment on above: Result Comment: These results are not intended for use in patients <18 years of age. eGFR results are calculated without a race factor using the 2021 CKD-EPI equation. Careful clinical correlation is recommended, particularly when comparing to results calculated using previous equations. The CKD-EPI equation is less accurate in patients with extremes of muscle mass, extra-renal metabolism of creatine, excessive creatine ingestion, or following therapy that affects renal tubular secretion. Performed By: #### R EJEC, LYTE, B12FOL, MG #### [employer] [address] [place] [address] [phone] General Maintenance Engineer: Giovani Stafford MD GFR/1.73 sq M.predicted among non-blacks MDRD (S/P/Bld) [Vol rate/Area] mL/min/{1.73_m2} Normal >60 [facility] Comment on above: Result Comment: These results are not intended for use in patients <18 years of age. eGFR results are calculated without a race factor using the 1 CKD-EPI equation. Careful clinical correlation is recommended, particularly when comparing to results calculated using previous equations. The CKD-EPI equation is less accurate in patients with extremes of muscle mass, extra-renal metabolism of creatine, excessive creatine ingestion, or following therapy that affects renal tubular secretion. Performed By: #### R EJEC, LYTE, B12FOL, MG #### [employer] [address] [place] [address] [phone] General Maintenance Engineer: Giovani Stafford MD Glucose [Mass/Vol] 199 mg/dL High 70-99 [facility] Comment on above: Performed By: #### R EJEC, LYTE, B12FOL, MG #### [employer] [address] [place] [address] [phone] General Maintenance Engineer: Giovani Stafford MD Glucose [Mass/Vol] 200 mg/dL High 70-99 [facility] Comment on above: Performed By: #### R EJEC, LYTE, B12FOL, MG #### [facility] [address] [place] [address] General Maintenance Engineer: Giovani Stafford MD Potassium [Moles/Vol] 4.0 mmol/L Normal 3.7-5.[address] [facility] Comment on above: Performed By: #### R EJEC, LYTE, B12FOL, MG #### [facility] [address] [place] [address] General Maintenance Engineer: Giovani Stafford MD Potassium [Moles/Vol] 4.1 mmol/L Normal 3.7-5.[address] [facility] Comment on above: Performed By: #### R EJEC, LYTE, B12FOL, MG #### [facility] [address] [place] [phone] General Maintenance Engineer: Giovani Stafford MD Sodium [Moles/Vol] 135 mmol/L Normal 135-144 [facility] Comment on above: Performed By: #### R EJEC, LYTE, B12FOL, MG #### [facility] [address] [place] [phone] General Maintenance Engineer: Giovani Stafford MD Sodium [Moles/Vol] 136 mmol/L Normal 135-144 [facility] Comment on above: Performed By: #### R EJEC, LYTE, B12FOL, MG #### [facility] [address] [place] [phone] General Maintenance Engineer: Giovani Stafford MD Urea nitrogen [Mass/Vol] 33 mg/dL High 8-23 [facility] Comment on above: Performed By: #### R EJEC, LYTE, B12FOL, MG #### [facility] [employer] [address] [place] [phone] General Maintenance Engineer: Giovani Stafford MD Urea nitrogen [Mass/Vol] 29 mg/dL High 823 [facility] Comment on above: Performed By: #### R EJEC, LYTE, B12FOL, MG #### [facility] [place] [address] General Maintenance Engineer: Giovani Stafford MD CBC with Diffon 06-27-2023 Abs. Basophil 0.00 k/uL Normal 0.0-0.2 [facility] Comment on above: Performed By: #### R EJKYRA, LYTE, B12FOL, MG #### [facility] [address] [place] [phone] General Maintenance Engineer: Giovani Stafford MD Abs. Basophil 0.00 k/uL Normal 0.0-0.2 [facility] Comment on above: Performed By: #### R BHAVANA LYTE, B12FOL, MG #### [facility] [employer] [address] [place] [phone] General Maintenance Engineer: Giovani Stafford MD Abs.Imm.Granulocyte 0.00 k/uL Normal 0.00-0.30 [facility] Comment on above: Performed By: #### R BHAVANA LYTE, B12FOL, MG #### [facility] [employer] [address] [place] [phone] General Maintenance Engineer: Giovani Stafford MD Abs.Imm.Granulocyte 0.00 k/uL Normal 0.00-0.30 [facility] Comment on above: Performed By: #### R BHAVANA LYTE, B12FOL, MG #### [facility] [address] [place] [phone] General Maintenance Engineer: Giovani Stafford MD Abs.Neutrophil (Seg) 8.45 k/uL High 1.8-7.7 [facility] Comment on above: Performed By: #### R EJEC, LYTE, B12FOL, MG #### [facility] [address] [place] [address] General Maintenance Engineer: Giovani Stafford MD Abs.Neutrophil (Seg) 7.36 k/uL Normal 1.8-7.7 [facility] Comment on above: Performed By: #### R EJEC, LYTE, B12FOL, MG #### [facility] [address] [place] [phone] General Maintenance Engineer: Giovani Stafford MD Basophils/100 WBC (Bld) 0 % Normal 0-2 [facility] Comment on above: Performed By: #### R EJEC, LYTE, B12FOL, MG #### [facility] [address] [place] [phone] General Maintenance Engineer: Giovani Stafford MD Basophils/100 WBC (Bld) 0 % Normal 0-2 [facility] Comment on above: Performed By: #### R EJEC, LYTE, B12FOL, MG #### [facility] [employer] [address] [place] [address] General Maintenance Engineer: Giovani Stafford MD Eosinophils (Bld) [#/Vol] 0.00 10*3/uL Normal 0.0-0.4 [facility] Comment on above: Performed By: #### R EJEC, LYTE, B12FOL, MG #### [facility] [employer] [address] [place] [phone] General Maintenance Engineer: Giovani Stafford MD Eosinophils (Bld) [#/Vol] 0.00 10*3/uL Normal 0.0-0.4 [facility] Comment on above: Performed By: #### R EJEC, LYTE, B12FOL, MG #### [facility] [employer] [address] [place] [phone] General Maintenance Engineer: Giovani Stafford MD Eosinophils/100 WBC (Bld) 0 % Low 1-4 [facility] Comment on above: Performed By: #### R EJEC, LYTE, B12FOL, MG #### [facility] [address] [place] [address] General Maintenance Engineer: Giovani Stafford MD Eosinophils/100 WBC (Bld) 0 % Low 1-4 [facility] Comment on above: Performed By: #### R EJEC, LYTE, B12FOL, MG #### [facility] [address] [place] [phone] General Maintenance Engineer: Giovani Stafford MD Erythrocyte distribution width (RBC) [Ratio] 13.9 % Normal 11.8-14.4 [facility] Comment on above: Performed By: #### R EJEC, LYTE, B12FOL, MG #### [facility] [address] [place] [phone] General Maintenance Engineer: Giovani Stafford MD Erythrocyte distribution width (RBC) [Ratio] 13.9 % Normal 11.8-14.4 [facility] Comment on above: Performed By: #### R EJEC, LYTE, B12FOL, MG #### [facility] [address] [place] [phone] General Maintenance Engineer: Giovani Stafford MD Hematocrit (Bld) [Volume fraction] 28.2 % Low 40.7-50.3 [facility] Comment on above: Performed By: #### R EJEC, LYTE, B12FOL, MG #### [employer] [address] [place] [address] General Maintenance Engineer: Giovani Stafford MD Hematocrit (Bld) [Volume fraction] 27.8 % Low 40.7-50.3 [facility] Comment on above: Performed By: #### R EJEC, LYTE, B12FOL, MG #### [facility] [address] [place] [phone] General Maintenance Engineer: Giovani Stafford MD Hemoglobin (Bld) [Mass/Vol] 9.1 g/dL Low 13.0-17.0 [facility] Comment on above: Performed By: #### R EJEC, LYTE, B12FOL, MG #### [facility] [employer] [address] [place] [phone] General Maintenance Engineer: Giovani Stafford MD Hemoglobin (Bld) [Mass/Vol] 9.0 g/dL Low 13.0-17.0 [facility] Comment on above: Performed By: #### R EJEC, LYTE, B12FOL, MG #### [address] [address] General Maintenance Engineer: Giovani Stafford MD Immature granulocytes/100 WBC (Bld) 0 % Normal 0 [facility] Comment on above: Performed By: #### R EJEC, LYTE, B12FOL, MG #### [address] [address] General Maintenance Engineer: Giovani Stafford MD Immature granulocytes/100 WBC (Bld) 0 % Normal 0 [facility] Comment on above: Performed By: #### R EJEC, LYTE, B12FOL, MG #### [address] [address] General Maintenance Engineer: Giovani Stafford MD Lymphocytes (Bld) [#/Vol] 0.09 10*3/uL Low 1.0-4.8 [facility] Comment on above: Performed By: #### R EJEC, LYTE, B12FOL, MG #### [address] [address] General Maintenance Engineer: Giovani Stafford MD Lymphocytes (Bld) [#/Vol] 0.32 10*3/uL Low 1.0-4.8 [facility] Comment on above: Performed By: #### R EJEC, LYTE, B12FOL, MG #### [address] [address] General Maintenance Engineer: Giovani Stafford MD Lymphocytes/100 WBC (Bld) 1 % Low 24-44 [facility] Comment on above: Performed By: #### R EJEC, LYTE, B12FOL, MG #### [address] [address] General Maintenance Engineer: Giovani Stafford MD Lymphocytes/100 WBC (Bld) 4 % Low 24-44 [facility] Comment on above: Performed By: #### R EJEC, LYTE, B12FOL, MG #### [address] [address] General Maintenance Engineer: Giovani Stafford MD MCH (RBC) [Entitic mass] 31.8 pg Normal 25.2-33.5 [facility] Comment on above: Performed By: #### R EJEC, LYTE, B12FOL, MG #### [address] [address] General Maintenance Engineer: Giovani Stafford MD MCH (RBC) [Entitic mass] 31.8 pg Normal 25.2-33.5 [facility] Comment on above: Performed By: #### R EJEC, LYTE, B12FOL, MG #### [address] [address] General Maintenance Engineer: Giovani Stafford MD MCHC (RBC) [Mass/Vol] 32.3 g/dL Normal 28.4-34.[address] [facility] Comment on above: Performed By: #### R EJKYRA, LYTE, B12FOL, MG #### [address] [address] General Maintenance Engineer: Giovani Stafford MD MCHC (RBC) [Mass/Vol] 32.4 g/dL Normal 28.4-34.[address] [facility] Comment on above: Performed By: #### R EJEC, LYTE, B12FOL, MG #### [address] [address] General Maintenance Engineer: Giovani Stafford MD MCV (RBC) [Entitic vol] 98.6 fL Normal 82.6-102.9 [facility] Comment on above: Performed By: #### R EJEC, LYTE, B12FOL, MG #### [facility] [address] [place] [phone] General Maintenance Engineer: Giovani Stafford MD MCV (RBC) [Entitic vol] 98.2 fL Normal 82.6-102.9 [facility] Comment on above: Performed By: #### R EJEC, LYTE, B12FOL, MG #### [facility] [address] [place] [phone] General Maintenance Engineer: Giovani Stafford MD Monocytes (Bld) [#/Vol] 0.36 10*3/uL Normal 0.1-0.8 [facility] Comment on above: Performed By: #### R EJEC, LYTE, B12FOL, MG #### [address] [address] General Maintenance Engineer: Giovani Stafford MD Monocytes (Bld) [#/Vol] 0.32 10*3/uL Normal 0.1-0.8 [facility] Comment on above: Performed By: #### R EJEC, LYTE, B12FOL, MG #### [facility] [address] [place] [phone] General Maintenance Engineer: Giovani Stafford MD Monocytes/100 WBC (Bld) 4 % Normal 1-7 [facility] Comment on above: Performed By: #### R EJEC, LYTE, B12FOL, MG #### [facility] [address] [place] [address] General Maintenance Engineer: Giovani Stafford MD Monocytes/100 WBC (Bld) 4 % Normal -[address] [place] [address] Comment on above: Performed By: #### R EJEC, LYTE, B12FOL, MG #### [facility] [employer] [address] [place] [phone] General Maintenance Engineer: Giovani Stafford MD Morphology [place] (Bld) [Interp] INCREASED BANDS PRESENT Normal [facility] Comment on above: Performed By: #### R EJEC, LYTE, B12FOL, MG #### [facility] [address] [place] [phone] General Maintenance Engineer: Giovani Stafford MD Morphology [place] (Bld) [Interp] INCREASED BANDS PRESENT Normal [facility] Comment on above: Performed By: #### R EJEC, LYTE, B12FOL, MG #### [facility] [address] [place] [phone] General Maintenance Engineer: Giovani Stafford MD Neutrophil (Seg) 95 % High [address] Comment on above: Performed By: #### R EJEC, LYTE, B12FOL, MG #### [facility] [employer] [address] [place] [address] General Maintenance Engineer: Giovani Stafford MD Neutrophil (Seg) 92 % High [address] Comment on above: Performed By: #### R EJEC, LYTE, B12FOL, MG #### [facility] [address] [place] [phone] General Maintenance Engineer: Giovani Stafford MD NRBC Automated 0.0 per 100 WBC Normal 0.0 [facility] Comment on above: Performed By: #### R EJEC, LYTE, B12FOL, MG #### [facility] [address] [place] [phone] General Maintenance Engineer: Giovani Stafford MD NRBC Automated 0.0 per 100 WBC Normal 0.0 [facility] Comment on above: Performed By: #### R EJEC, LYTE, B12FOL, MG #### [facility] [address] [place] [phone] General Maintenance Engineer: Giovani Stafford MD Platelet mean volume (Bld) [Entitic vol] 10.5 fL Normal 8.1-13.5 [facility] Comment on above: Performed By: #### R EJEC, LYTE, B12FOL, MG #### [facility] [address] [place] [address] 92282 General Maintenance Engineer: Giovani Stafford MD Platelet mean volume (Bld) [Entitic vol] 11.4 fL Normal 8.1-13.5 [facility] Comment on above: Performed By: #### R EJEC, LYTE, B12FOL, MG #### [facility] [address] [place] [address] 83267 General Maintenance Engineer: Giovani Stafford MD Platelets (Bld) [#/Vol] 236 10*3/uL Normal 138-453 [facility] Comment on above: Performed By: #### R EJEC, LYTE, B12FOL, MG #### [facility] [address] [place] [address] 63987 General Maintenance Engineer: Giovani Stafford MD Platelets (Bld) [#/Vol] 231 10*3/uL Normal 138-453 [facility] Comment on above: Performed By: #### R EJEC, LYTE, B12FOL, MG #### [facility] [address] [place] [address] 28799 General Maintenance Engineer: Giovani Stafford MD RBC (Bld) [#/Vol] 2.86 10*6/uL Low 4.21-5.77 [facility] Comment on above: Performed By: #### R EJEC, LYTE, B12FOL, MG #### [facility] [address] [place] [address] 66561 General Maintenance Engineer: Giovani Stafford MD RBC (Bld) [#/Vol] 2.83 10*6/uL Low 4.21-5.77 [facility] Comment on above: Performed By: #### R EJEC, LYTE, B12FOL, MG #### [facility] [address] [place] [address]30 General Maintenance Engineer: Giovani Stafford MD WBC (Bld) [#/Vol] 8.9 10*3/uL Normal 3.5-11.3 [facility] Comment on above: Performed By: #### R EJEC, LYTE, B12FOL, MG #### [facility] [address] [place] [address] General Maintenance Engineer: Giovani Stafford MD WBC (Bld) [#/Vol] 8.0 10*3/uL Normal 3.5-11.3 [facility] Comment on above: Performed By: #### R EJEC LYTE, B12FOL, MG #### [facility] [address] [place] [address] General Maintenance Engineer: Giovani Stafford MD Calcium, Ionicon 06-27-2023 Calcium [Moles/Vol] 1.18 mmol/L Normal 1.13-1.33 [facility] Comment on above: Performed By: #### R EJEC LYTE, B12FOL, MG #### [facility] [address] [place] [address] General Maintenance Engineer: Giovani Stafford MD FL UGIon 06-27-2023 FL [...] stand and drink the oral contrast. 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0-17.0 [facility] Comment on above: Performed By: #### C DP, BMPX, MG, SUYAPA #### [facility] [place], [place] [phone] General Maintenance Engineer: Giovani Stafford MD Lactic Acidon 06-27-2023 Lactic Acid,Whole Bl 0.9 mmol/L Normal 0.7-2.1 [facility] Comment on above: Performed By: #### R EJEC, LYTE, B12FOL, MG #### [facility] [address] [place] [address] 14338 General Maintenance Engineer: Giovani Stafford MD Magnesiumon 06-27-2023 Magnesium [Mass/Vol] 1.7 mg/dL Normal 1.6-2.6 [facility] Comment on above: Performed By: #### R EJEC, LYTE, B12FOL, MG #### [facility] [address] [place] [address] 27756 General Maintenance Engineer: Giovani Stafford MD Magnesium [Mass/Vol] 2.1 mg/dL Normal 1.6-2.6 [facility] Comment on above: Performed By: #### R EJEC, LYTE, B12FOL, MG #### [facility] [address] [place] [address] General Maintenance Engineer: Giovani Stafford MD PTon 06-27-2023 INR Coag (PPP) [Relative time] 1.4 {INR} Normal [facility] Comment on above: Result Comment: Therapeutic Range: Moderate Anticoagulant Intensity: INR = 2.0-3.0 High Anticoagulant Intensity: INR = 2.5-3.5 Performed By: #### C DP, BMPX, MG, SUYAPA #### [facility] [address] [place] [address] 75195 General Maintenance Engineer: Giovani Stafford MD INR Coag (PPP) [Relative time] 1.4 {INR} Normal [facility] Comment on above: Result Comment: Therapeutic Range: Moderate Anticoagulant Intensity: INR = 2.0-3.0 High Anticoagulant Intensity: INR = 2.5-3.5 Performed By: #### R EJEC, LYTE, B12FOL, MG #### [facility] [address] [place] [address] [phone] General Maintenance Engineer: Giovani Stafford MD PT Coag (PPP) [Time] 17.0 s High 11.7-14.9 [facility] Comment on above: Performed By: #### C DP, BMPX, MG, SUYAPA #### [facility] [address] [place] [address] 28181 General Maintenance Engineer: Giovani Stafford MD PT Coag (PPP) [Time] 16.5 s High 11.7-14.9 [facility] Comment on above: Performed By: #### R EJEC, LYTE, B12FOL, MG #### [facility] [address] [place] [address] 14311 General Maintenance Engineer: Giovani Stafford MD Phosphorus, Inorg.on Phosphorus, Inorg. 2.8 mg/dL Normal 2.5-4.5 [facility] Comment on above: Performed By: #### R EJEC, LYTE, B12FOL, MG #### [facility] [address] [place] [address] 69741 General Maintenance Engineer: Giovani Stafford MD Phosphorus, Inorg. 2.9 mg/dL Normal 2.5-4.5 [facility] Comment on above: Performed By: #### R EJEC, LYTE, B12FOL, MG #### [facility] [address] [place] [address] 92179 General Maintenance Engineer: Giovani Stafford MD Specimen Rejectionon 024 Reason for rejection Unable to perform testing: Specimen quantity not sufficient. Normal [facility] Comment on above: Result Comment: JADA ICA Performed By: #### R EJEC, LYTE, B12FOL, MG #### [employer] [address] [place] [address] 58713 General Maintenance Engineer: Giovani Stafford MD Source of sample .BLOOD Normal [facility] Comment on above: Performed By: #### R EJEC, LYTE, B12FOL, MG #### [employer] [address] [place] [address] 17166 General Maintenance Engineer: Giovani Stafford MD Test ordered PT Normal [facility] Comment on above: Performed By: #### ALVA SANTANA B12FOL, MG #### [facility] [address] [place] [address] 04289 General Maintenance Engineer: Giovani Stafford MD TSH w/reflex to FT4on 2023 Thyroid Stim. Horm. 0.53 uIU/mL Normal 0.30-5.00 [facility] Comment on above: Performed By: #### ALVA SANTANA B12FOL, MG #### [facility] [address] [place] [address] 43798 General Maintenance Engineer: Giovani Stafford MD Vitamin D 25 OHon 06-27-2023 Vitamin D 25 OH 20.7 ng/mL Low >29.9 [facility] Comment on above: Result Comment: Reference Range: Vitamin D status Range Deficiency <20 ng/mL Mild Deficiency 20-30 ng/mL Sufficiency 30-100 ng/mL Toxicity >100 ng/mL Performed By: #### ALVA SANTANA B12FOL, MG #### [address] [address] General Maintenance Engineer: Giovani Stafford MD XR ABDOMEN FOR NG/OG/NE [...] Phyllis Nixon MD 06/27/23 Final result Normal [facility] XR ANKLE LEFT (2 VIEWS)on XR [...] Vic Curry MD 06/27/23 Final result Normal [facility] XR ANKLE LEFT (MIN 3 VIEWS)o [...] Vic Curry MD 06/27/23 Final result Normal [facility] XR TIBIA FIBULA LEFT (2 VIEW [...] Ash Devi MD 06/27/23 Final result Normal [facility] APTTon 06-26-2023 aPTT Coag (Bld) [Time] 29.4 s Normal 23.0-36.5 [facility] Comment on above: Result Comment: IV Heparin Therapy Range: 66.0-92.0 sec Performed By: #### C DP BMPX, MG, SUYAPA #### [facility] [address] [place] [address] 99848 General Maintenance Engineer: Giovani Stafford MD B12/Folate Panelon Cobalamin (Vitamin B12) [Mass/Vol] 485 pg/mL Normal 232-1245 [facility] Comment on above: Performed By: #### PINA SANTANATE, B12FOL, MG #### [facility] [address] [place] [address] 20138 General Maintenance Engineer: Giovani Stafford MD Folic Acid 8.3 ng/mL Normal >4.8 [facility] Comment on above: Performed By: #### Iveth NGUYENECPINATE B12FOL, MG #### [facility] [address] [place] [address] 07051 General Maintenance Engineer: Giovani Stafford MD Basic Metab w/rfx MGon 06-26 Anion gap [Moles/Vol] 9 mmol/L Normal 9-[address] [facility] Comment on above: Performed By: #### R EJEC LYTE, B12FOL, MG #### [facility] [address] [place] [address] 84941 General Maintenance Engineer: Giovani Stafford MD Calcium [Mass/Vol] 5.7 mg/dL Critically low 8.6-10.4 [facility] Comment on above: Performed By: #### R EJEC, LYTE, B12FOL, MG #### [facility] [address] [place] [address] 58048 General Maintenance Engineer: Giovani Stafford MD Chloride [Moles/Vol] 115 mmol/L High 98-107 [facility] Comment on above: Performed By: #### R EJEC, LYTE, B12FOL, MG #### [facility] [address] [place] [address] 87978 General Maintenance Engineer: Giovani Stafford MD CO2 [Moles/Vol] 20 mmol/L Normal 20-31 [facility] Comment on above: Performed By: #### R EJEC LYTE, B12FOL, MG #### [address] [address] General Maintenance Engineer: Giovani Stafford MD Creatinine [Mass/Vol] 0.5 mg/dL Low 0.70-1.[address] [facility] Comment on above: Performed By: #### R EJEC LYTE, B12FOL, MG #### [address] [address] General Maintenance Engineer: Giovani Stafford MD GFR/1.73 sq M.predicted among non-blacks MDRD (S/P/Bld) [Vol rate/Area] mL/min/{1.73_m2} Normal >60 [facility] Comment on above: Result Comment: These [...] #### R EJEC, LYTE, B12FOL, MG #### [facility] [address] [place] [address] 79148 General Maintenance Engineer: Giovani Stafford MD Glucose [Mass/Vol] 110 mg/dL High 74-99 [facility] Comment on above: Performed By: #### R EJEC, LYTE, B12FOL, MG #### [facility] [address] [place] [address] General Maintenance Engineer: Giovani Stafford MD Potassium [Moles/Vol] 2.5 mmol/L Critically low 3.7-5.3 [facility] Comment on above: Performed By: #### R EJEC, LYTE, B12FOL, MG #### [facility] [address] [place] [address] 01442 General Maintenance Engineer: Giovani Stafford MD Sodium [Moles/Vol] 144 mmol/L Normal 136-145 [facility] Comment on above: Performed By: #### R EJEC, LYTE, B12FOL, MG #### [facility] [address] [place] [address] 86695 General Maintenance Engineer: Giovani Stafford MD Urea nitrogen [Mass/Vol] 34 mg/dL High 8-23 [facility] Comment on above: Performed By: #### R EJEC, LYTE, B12FOL, MG #### [facility] [facility] [address] [place] [address] [phone] General Maintenance Engineer: Giovani Stafford MD Basic Metabolic Profon 06-26 Anion gap [Moles/Vol] 12 mmol/L Normal 9-[address] [facility] Comment on above: Performed By: #### C DP, BMPX, MG, SUYAPA #### [facility] [address] [place] [address] 66077 General Maintenance Engineer: Giovani Stafford MD Calcium [Mass/Vol] 8.1 mg/dL Low 8.6-10.4 [facility] Comment on above: Performed By: #### C DP, BMPX, MG, SUYAPA #### [facility] [facility] [address] [place] [address] 76209 General Maintenance Engineer: Giovani Stafford MD Chloride [Moles/Vol] 98 mmol/L Normal 98-107 [facility] Comment on above: Performed By: #### C DP, BMPX, MG, SUYAPA #### [facility] [address] [place] [address] General Maintenance Engineer: Giovani Stafford MD CO2 [Moles/Vol] 26 mmol/L Normal 20-31 [facility] Comment on above: Performed By: #### C DP, BMPX, MG, SUYAPA #### [facility] [address] [place] [address] 70895 General Maintenance Engineer: Giovani Stafford MD Creatinine [Mass/Vol] 0.8 mg/dL Normal 0.7-1.[address] [facility] Comment on above: Performed By: #### C DP, BMPX, MG, SUYAPA #### [facility] [address] [place] [address] 81406 General Maintenance Engineer: Giovani Stafford MD GFR/1.73 sq M.predicted among non-blacks MDRD (S/P/Bld) [Vol rate/Area] mL/min/{1.73_m2} Normal >60 [facility] Comment on above: Result Comment: These [...] #### C DP, BMPX, MG, SUYAPA #### [facility] [place] [address] General Maintenance Engineer: Giovani Stafford MD Glucose [Mass/Vol] 146 mg/dL High 70-99 [facility] Comment on above: Performed By: #### C DP, BMPX, MG, SUYAPA #### [facility] [address] [place] [address] 23941 General Maintenance Engineer: Giovani Stafford MD Potassium [Moles/Vol] 3.8 mmol/L Normal 3.7-5.[address] [facility] Comment on above: Performed By: #### C DP, BMPX, MG, SUYAPA #### [facility] [address] [place] [address] 25192 General Maintenance Engineer: Giovani Stafford MD Sodium [Moles/Vol] 136 mmol/L Normal 135-144 [facility] Comment on above: Performed By: #### C DP, BMPX, MG, SUYAPA #### [facility] [address] [place] [address] 52949 General Maintenance Engineer: Giovani Stafford MD Urea nitrogen [Mass/Vol] 37 mg/dL High 8-23 [facility] Comment on above: Performed By: #### C DP, BMPX, MG, SUYAPA #### [facility] [address] [place] [address] 37042 General Maintenance Engineer: Giovani Stafford MD Brain Natri. Peptideon 06-26 Natriuretic peptide B (Bld) [Mass/Vol] 1263 pg/mL High 0-300 [facility] Comment on above: Result Comment: An a ge-independent cutoff point of 300 pg/ml has a 98% negative predictive value excluding acute heart failure. Performed By: #### R EJEC LYTE, B12FOL, MG #### [facility] [address] [place] [address] 30811 General Maintenance Engineer: Giovani Stafford MD CBCon 06-26-2023 Erythrocyte distribution width (RBC) [Ratio] 13.2 % Normal 11.8-14.4 [facility] Comment on above: Performed By: #### C DP, BMPX, MG, SUYAPA #### [facility] [facility] [address] [place] [address] [phone] General Maintenance Engineer: Giovani Stafford MD Hematocrit (Bld) [Volume fraction] 21.7 % Low 40.7-50.3 [facility] Comment on above: Performed By: #### C DP, BMPX, MG, SUYAPA #### [address] [address] General Maintenance Engineer: Giovani Stafford MD Hemoglobin (Bld) [Mass/Vol] 6.8 g/dL Critically low 13.0-17.0 [facility] Comment on above: Performed By: #### C DP, BMPX, MG, SUYAPA #### [address] [address] General Maintenance Engineer: Giovani Stafford MD MCH (RBC) [Entitic mass] 31.9 pg Normal 25.2-33.5 [facility] Comment on above: Performed By: #### C DP, BMPX, MG, SUYAPA #### [address] [address] General Maintenance Engineer: Giovani Stafford MD MCHC (RBC) [Mass/Vol] 31.3 g/dL Normal 28.4-34.[address] [facility] Comment on above: Performed By: #### C DP, BMPX, MG, SUYAPA #### [address] [address] General Maintenance Engineer: Giovani Stafford MD MCV (RBC) [Entitic vol] 101.9 fL Normal 82.6-102.9 [facility] Comment on above: Performed By: #### C DP, BMPX, MG, SUYAPA #### [address] [address] General Maintenance Engineer: Giovani Stafford MD NRBC Automated 0.0 per 100 WBC Normal 0.0 [facility] Comment on above: Performed By: #### C DP, BMPX, MG, SUYAPA #### [facility] [address] [place] [address] 21874 General Maintenance Engineer: Giovani Stafford MD Platelet mean volume (Bld) [Entitic vol] 10.6 fL Normal 8.1-13.5 [facility] Comment on above: Performed By: #### C DP, BMPX, MG, SUYAPA #### [facility] [facility] [address] [place] [address]459 General Maintenance Engineer: Giovani Stafford MD Platelets (Bld) [#/Vol] 251 10*3/uL Normal 138-453 [facility] Comment on above: Performed By: #### C DP, BMPX, MG, SUYAPA #### [facility] [address] [place] [address] 56096 General Maintenance Engineer: Giovani Stafford MD RBC (Bld) [#/Vol] 2.13 10*6/uL Low 4.21-5.77 [facility] Comment on above: Performed By: #### C DP, BMPX, MG, SUYAPA #### [facility] [address] [place] [address] General Maintenance Engineer: Giovani Stafford MD WBC (Bld) [#/Vol] 18.0 10*3/uL High 3.5-11.3 [facility] Comment on above: Performed By: #### C DP, BMPX, MG, SUYAPA #### [facility] [address] [place] [address] General Maintenance Engineer: Giovani Stafford MD CBC with Diffon 06-26-2023 Abs. Basophil 0.00 k/uL Normal 0.0-0.2 [facility] Comment on above: Performed By: #### C DP, BMPX, MG, SUYAPA #### [facility] [address] [place] [address] 56503 General Maintenance Engineer: Giovani Stafford MD Abs. Basophil 0.00 k/uL Normal 0.00-0.20 [facility] Comment on above: Performed By: #### R EJEC, LYTE, B12FOL, MG #### [facility] [address] [place] [address] 36819 General Maintenance Engineer: Giovani Stafford MD Abs.Imm.Granulocyte 0.00 k/uL Normal 0.00-0.30 [facility] Comment on above: Performed By: #### C DP, BMPX, MG, SUYAPA #### [facility] [address] [place] [address] 57094 General Maintenance Engineer: Giovani Stafford MD Abs.Imm.Granulocyte 0.20 k/uL Normal 0.00-0.30 [facility] Comment on above: Performed By: #### R EJEC, LYTE, B12FOL, MG #### [facility] [address] [place] [address] 51786 General Maintenance Engineer: Giovani Stafford MD Abs.Neutrophil (Seg) 24.93 k/uL High 1.8-7.7 [facility] Comment on above: Performed By: #### C DP, BMPX, MG, SUYAPA #### [address] [address] General Maintenance Engineer: Giovani Stafford MD Abs.Neutrophil (Seg) 17.81 k/uL High 1.50-8.10 [facility] Comment on above: Performed By: #### R EJEC, LYTE, B12FOL, MG #### [facility] [address] [place] [address]14 General Maintenance Engineer: Giovani Stafford MD Basophils/100 WBC (Bld) 0 % Normal 0-2 [facility] Comment on above: Performed By: #### C DP, BMPX, MG, SUYAPA #### [facility] [address] [place] [address]455 General Maintenance Engineer: Giovani Stafford MD Basophils/100 WBC (Bld) 0 % Normal 0-2 [facility] Comment on above: Performed By: #### R EJEC, LYTE, B12FOL, MG #### [facility] [address] [place] [address]27 General Maintenance Engineer: Giovani Stafford MD Eosinophils (Bld) [#/Vol] 0.00 10*3/uL Normal 0.0-0.4 [facility] Comment on above: Performed By: #### C DP, BMPX, MG, SUYAPA #### [facility] [address] [place] [address] 40476 General Maintenance Engineer: Giovani Stafford MD Eosinophils (Bld) [#/Vol] 0.00 10*3/uL Normal 0.00-0.44 [facility] Comment on above: Performed By: #### R PATRICKEC LYTE, B12FOL, MG #### [facility] [address] [place] [address] 48176 General Maintenance Engineer: Giovani Stafford MD Eosinophils/100 WBC (Bld) 0 % Low 4 [facility] Comment on above: Performed By: #### C DP, BMPX, MG, SUYAPA #### [facility] [address] [place] [address] 18620 General Maintenance Engineer: Giovani Stafford MD Eosinophils/100 WBC (Bld) 0 % Low [address] [place] [address] Comment on above: Performed By: #### PINA SANTANATE, B12FOL, MG #### [facility] [address] [place] [address]223 General Maintenance Engineer: Giovani Stafford MD Erythrocyte distribution width (RBC) [Ratio] 13.3 % Normal 11.8-14.4 [facility] Comment on above: Performed By: #### C DP, BMPX, MG, SUYAPA #### [facility] [address] [place] [address] 50607 General Maintenance Engineer: Giovani Stafford MD Erythrocyte distribution width (RBC) [Ratio] 13.1 % Normal 11.8-14.4 [facility] Comment on above: Performed By: #### R EJEC, LYTE, B12FOL, MG #### [facility] [address] [place] [address] 02123 General Maintenance Engineer: Giovani Stafford MD Hematocrit (Bld) [Volume fraction] 29.4 % Low 40.7-50.3 [facility] Comment on above: Performed By: #### C DP, BMPX, MG, SUYAPA #### [facility] [address] [place] [address] 81647 General Maintenance Engineer: Giovani Stafford MD Hematocrit (Bld) [Volume fraction] 21.8 % Low 40.7-50.3 [facility] Comment on above: Performed By: #### R EJEC, LYTE, B12FOL, MG #### [facility] [address] [place] [address] 61700 General Maintenance Engineer: Giovani Stafford MD Hemoglobin (Bld) [Mass/Vol] 9.3 g/dL Low 13.0-17.0 [facility] Comment on above: Performed By: #### C DP, BMPX, MG, SUYAPA #### [facility] [address] [place] [address]16 General Maintenance Engineer: Giovani Stafford MD Hemoglobin (Bld) [Mass/Vol] 6.5 g/dL Critically low 13.0-17.0 [facility] Comment on above: Performed By: #### R EJEC, LYTE, B12FOL, MG #### [facility] [address] [place] [address] 7[address]21 General Maintenance Engineer: Giovani Stafford MD Immature granulocytes/100 WBC (Bld) 0 % Normal 0 [facility] Comment on above: Performed By: #### C DP, BMPX, MG, SUYAPA #### [facility] [address] [place] [address] General Maintenance Engineer: Giovani Stafford MD Immature granulocytes/100 WBC (Bld) 1 % High 0 [facility] Comment on above: Performed By: #### R EJEC, LYTE, B12FOL, MG #### [facility] [address] [place] [address] 0[address]16 General Maintenance Engineer: Giovani Stafford MD Lymphocytes (Bld) [#/Vol] 0.80 10*3/uL Low 1.0-4.8 [facility] Comment on above: Performed By: #### C DP, BMPX, MG, SUYAPA #### [facility] [address] [place] [address] 47713 General Maintenance Engineer: Giovani Stafford MD Lymphocytes (Bld) [#/Vol] 0.40 10*3/uL Low 1.10-3.70 [facility] Comment on above: Performed By: #### R EJEC, LYTE, B12FOL, MG #### [facility] [address] [place] [address] 16162 General Maintenance Engineer: Giovani Stafford MD Lymphocytes/100 WBC (Bld) 3 % Low 24-44 [facility] Comment on above: Performed By: #### C DP, BMPX, MG, SUYAPA #### [facility] [address] [place] [phone] General Maintenance Engineer: Giovani Stafford MD Lymphocytes/100 WBC (Bld) 2 % Low 24-43 [facility] Comment on above: Performed By: #### R EJEC, LYTE, B12FOL, MG #### [facility] [address] [place] [address] 48109 General Maintenance Engineer: Giovani Stafford MD MCH (RBC) [Entitic mass] 31.8 pg Normal 25.2-33.5 [facility] Comment on above: Performed By: #### C DP, BMPX, MG, SUYAPA #### [facility] [address] [place] [address] [phone] General Maintenance Engineer: Giovani Stafford MD MCH (RBC) [Entitic mass] 31.1 pg Normal 25.2-33.5 [facility] Comment on above: Performed By: #### R EJEC, LYTE, B12FOL, MG #### [facility] [address] [place] [address] 83858 General Maintenance Engineer: Giovani Stafford MD MCHC (RBC) [Mass/Vol] 31.6 g/dL Normal 28.4-34.[address] [facility] Comment on above: Performed By: #### C DP, BMPX, MG, SUYAPA #### [facility] [address] [place] [address] 23851 General Maintenance Engineer: Giovani Stafford MD MCHC (RBC) [Mass/Vol] 29.8 g/dL Normal 28.4-34.[address] [facility] Comment on above: Performed By: #### R EJEC, LYTE, B12FOL, MG #### [facility] [employer] [address] [place] [address] 43926 General Maintenance Engineer: Giovani Stafford MD MCV (RBC) [Entitic vol] 100.7 fL Normal 82.6-102.9 [facility] Comment on above: Performed By: #### C DP, BMPX, MG, SUYAPA #### [facility] [facility] [address] [place] [address] 51249 General Maintenance Engineer: Giovani Stafford MD MCV (RBC) [Entitic vol] 104.3 fL High 82.6-102.9 [facility] Comment on above: Performed By: #### R EJEC, LYTE, B12FOL, MG #### [facility] [address] [place] [address] 77840 General Maintenance Engineer: Giovani Stafford MD Monocytes (Bld) [#/Vol] 1.07 10*3/uL High 0.1-0.8 [facility] Comment on above: Performed By: #### C DP, BMPX, MG, SUYAPA #### [facility] [facility] [address] [place] [address] 69613 General Maintenance Engineer: Giovani Stafford MD Monocytes (Bld) [#/Vol] 1.39 10*3/uL High 0.10-1.20 [facility] Comment on above: Performed By: #### R EJEC, LYTE, B12FOL, MG #### [address] [address] General Maintenance Engineer: Giovani Stafford MD Monocytes/100 WBC (Bld) 4 % Normal 1-7 [facility] Comment on above: Performed By: #### C DP, BMPX, MG, SUYAPA #### [address] [address] General Maintenance Engineer: Giovani Stafford MD Monocytes/100 WBC (Bld) 7 % Normal 3-12 [facility] Comment on above: Performed By: #### R EJEC, LYTE, B12FOL, MG #### [address] [address] General Maintenance Engineer: Giovani Stafford MD Morphology Ambrose (Bld) [Interp] Normal Normal [facility] Comment on above: Performed By: #### C DP, BMPX, MG, SUYAPA #### [facility] [facility] [address] [place] [address] 50999 General Maintenance Engineer: Giovani Stafford MD Morphology Ambrose (Bld) [Interp] MACROCYTOSIS PRESENT Normal [facility] Comment on above: Result Comment: 1+ ACANTHOCYTES Performed By: #### R EJEC, LYTE, B12FOL, MG #### [facility] [facility] [address] [place] [address] [phone] General Maintenance Engineer: Giovani Stafford MD Neutrophil (Seg) 93 % High 36-66 [facility] Comment on above: Performed By: #### C DP, BMPX, MG, SUYAPA #### [facility] [facility] [address] [place] [address] 33521 General Maintenance Engineer: Giovani Stafford MD Neutrophil (Seg) 90 % High 36-65 [facility] Comment on above: Performed By: #### R EJEC, LYTE, B12FOL, MG #### [facility] [address] [place] [address] 03073 General Maintenance Engineer: Giovani Stafford MD NRBC Automated 0.0 per 100 WBC Normal 0.0 [facility] Comment on above: Performed By: #### C DP, BMPX, MG, SUYAPA #### [facility] [address] [place] [address] 30624 General Maintenance Engineer: Giovani Stafford MD NRBC Automated 0.0 per 100 WBC Normal 0.0 [facility] Comment on above: Performed By: #### R EJEC, LYTE, B12FOL, MG #### [address] [address] General Maintenance Engineer: Giovani Stafford MD Platelet mean volume (Bld) [Entitic vol] 10.7 fL Normal 8.1-13.5 [facility] Comment on above: Performed By: #### C DP, BMPX, MG, SUYAPA #### [address] [address] General Maintenance Engineer: Giovani Stafford MD Platelet mean volume (Bld) [Entitic vol] 10.6 fL Normal 8.1-13.5 [facility] Comment on above: Performed By: #### R EJEC, LYTE, B12FOL, MG #### [facility] [address] [place] [address] 09763 General Maintenance Engineer: Giovani Stafford MD Platelets (Bld) [#/Vol] 345 10*3/uL Normal 138-453 [facility] Comment on above: Performed By: #### C DP, BMPX, MG, SUYAPA #### [address] [address] General Maintenance Engineer: Giovani Stafford MD Platelets (Bld) [#/Vol] 229 10*3/uL Normal 138-453 [facility] Comment on above: Performed By: #### R EJEC, LYTE, B12FOL, MG #### [facility] [address] [place] [address] General Maintenance Engineer: Giovani Stafford MD RBC (Bld) [#/Vol] 2.92 10*6/uL Low 4.21-5.77 [facility] Comment on above: Performed By: #### C DP, BMPX, MG, SUYAPA #### [facility] [address] [place] [address] 67124 General Maintenance Engineer: Giovani Stafford MD RBC (Bld) [#/Vol] 2.09 10*6/uL Low 4.21-5.77 [facility] Comment on above: Performed By: #### R EJEC, LYTE, B12FOL, MG #### [facility] [address] [place] [address] 31891 General Maintenance Engineer: Giovani Stafford MD WBC (Bld) [#/Vol] 26.8 10*3/uL High 3.5-11.3 [facility] Comment on above: Performed By: #### C DP, BMPX, MG, SUYAPA #### [facility] [address] [place] [address] 71323 General Maintenance Engineer: Giovani Stafford MD WBC (Bld) [#/Vol] 19.8 10*3/uL High 3.5-11.3 [facility] Comment on above: Performed By: #### R EJEC, LYTE, B12FOL, MG #### [facility] [address] [place] [address] 27757 General Maintenance Engineer: Giovani Stafford MD Calcium, Ionicon 06-26-2023 Calcium [Moles/Vol] 1.07 mmol/L Low 1.13-1.33 [facility] Comment on above: Performed By: #### C DP, BMPX, MG, SUYAPA #### [facility] [address] [place] [address] 30564 General Maintenance Engineer: Giovani Stafford MD Calcium [Moles/Vol] 1.39 mmol/L High 1.13-1.33 [facility] Comment on above: Performed By: #### C DP, BMPX, MG, SUYAPA #### [facility] [address] [place] [address] 88935 General Maintenance Engineer: Giovani Stafford MD Comp Metabolic Pr/rfx MGon 0 - Albumin [Mass/Vol] 2.5 g/dL Low 3.5-5.2 [facility] Comment on above: Performed By: #### C DP, BMPX, MG, SUYAPA #### [facility] [address] [place] [address] 90064 General Maintenance Engineer: Giovani Stafford MD Albumin/Glob Ratio 1.3 Normal 1.0-2.5 [facility] Comment on above: Performed By: #### C DP, BMPX, MG, SUYAPA #### [facility] [address] [place] [address] 51906 General Maintenance Engineer: Giovani Stafford MD Alkaline Phos 61 U/L Normal 40-129 [facility] Comment on above: Performed By: #### C DP, BMPX, MG, SUYAPA #### [facility] [address] [place] [address] 51734 General Maintenance Engineer: Giovani Stafford MD ALT [Catalytic activity/Vol] 7 U/L Normal 5-41 [facility] Comment on above: Performed By: #### C DP, BMPX, MG, SUYAPA #### [facility] [address] [place] [address] 43546 General Maintenance Engineer: Giovani Stafford MD Anion gap [Moles/Vol] 10 mmol/L Normal 9-[address] [facility] Comment on above: Performed By: #### C DP, BMPX, MG, SUYAPA #### [facility] [address] [place] [address] 29231 General Maintenance Engineer: Giovani Stafford MD AST [Catalytic activity/Vol] 9 U/L Normal <40 [facility] Comment on above: Performed By: #### C DP, BMPX, MG, SUYAPA #### [facility] [address] [place] [address] 73635 General Maintenance Engineer: Giovani Stafford MD Bilirubin [Mass/Vol] 0.4 mg/dL Normal 0.3-1.2 [facility] Comment on above: Performed By: #### C DP, BMPX, MG, SUYAPA #### [facility] [address] [place] [address] 60065 General Maintenance Engineer: Giovani Stafford MD Calcium [Mass/Vol] 6.6 mg/dL Low 8.6-10.4 [facility] Comment on above: Performed By: #### C DP, BMPX, MG, SUYAPA #### [facility] [facility] [address] [place] [address] 25075 General Maintenance Engineer: Giovani Stafford MD Chloride [Moles/Vol] 108 mmol/L High 98-107 [facility] Comment on above: Performed By: #### C DP, BMPX, MG, SUYAPA #### [facility] [address] [place] [address] 98198 General Maintenance Engineer: Giovani Stafford MD CO2 [Moles/Vol] 24 mmol/L Normal 20-31 [facility] Comment on above: Performed By: #### C DP, BMPX, MG, SUYAPA #### [facility] [address] [place] [address] 74063 General Maintenance Engineer: Giovani Stafford MD Creatinine [Mass/Vol] 0.5 mg/dL Low 0.7-1.[address] [facility] Comment on above: Performed By: #### C DP, BMPX, MG, SUYAPA #### [facility] [address] [place] [address] 39690 General Maintenance Engineer: Giovani Stafford MD GFR/1.73 sq M.predicted among non-blacks MDRD (S/P/Bld) [Vol rate/Area] mL/min/{1.73_m2} Normal >60 [facility] Comment on above: Result Comment: These [...] #### C DP, BMPX, MG, SUYAPA #### [address] [address] General Maintenance Engineer: Giovani Stafford MD Glucose [Mass/Vol] 127 mg/dL High 70-99 [facility] Comment on above: Performed By: #### C DP, BMPX, MG, SUYAPA #### [address] [address] General Maintenance Engineer: Giovani Stafford MD Potassium [Moles/Vol] 3.0 mmol/L Low 3.7-5.[address] [facility] Comment on above: Performed By: #### C DP, BMPX, MG, SUYAPA #### [facility] [address] [place] [address] 95197 General Maintenance Engineer: Giovani Stafford MD Protein [Mass/Vol] 4.5 g/dL Low 6.4-8.3 [facility] Comment on above: Performed By: #### C DP, BMPX, MG, SUYAPA #### [facility] [address] [place] [address] 37031 General Maintenance Engineer: Giovani Stafford MD Sodium [Moles/Vol] 142 mmol/L Normal 135-144 [facility] Comment on above: Performed By: #### C DP, BMPX, MG, SUYAPA #### [address] [address] General Maintenance Engineer: Giovani Stafford MD Urea nitrogen [Mass/Vol] 36 mg/dL High 8-23 [facility] Comment on above: Performed By: #### C DP, BMPX, MG, SUYAPA #### [address] [address] General Maintenance Engineer: Giovani Stafford MD Electrolyteson 06-26-2023 Anion gap [Moles/Vol] 12 mmol/L Normal 9-[address] [facility] Comment on above: Performed By: #### R EJEC, LYTE, B12FOL, MG #### [address] [address] General Maintenance Engineer: Giovani Stafford MD Chloride [Moles/Vol] 101 mmol/L Normal 98-107 [facility] Comment on above: Performed By: #### R EJEC, LYTE, B12FOL, MG #### [address] [address] General Maintenance Engineer: Giovani Stafford MD CO2 [Moles/Vol] 27 mmol/L Normal 20-31 [facility] Comment on above: Performed By: #### R EJEC, LYTE, B12FOL, MG #### [address] [address] General Maintenance Engineer: Giovani Stafford MD Potassium [Moles/Vol] 3.4 mmol/L Low 3.7-5.[address] [facility] Comment on above: Performed By: #### R EJEC, LYTE, B12FOL, MG #### [facility] [facility] [address] [place] [address] 06340 General Maintenance Engineer: Giovani Stafford MD Sodium [Moles/Vol] 140 mmol/L Normal 135-144 [facility] Comment on above: Performed By: #### R PINA BATEMANTE, B12FOL, MG #### [facility] [address] [place] [address] 52077 General Maintenance Engineer: Giovani Stafford MD Ferritinon 06-26-2023 Ferritin [Mass/Vol] 159 ng/mL Normal 30-400 [facility] Comment on above: Performed By: #### R BHAVANA LYTE, B12FOL, MG #### [facility] [address] [place] [address] 37658 General Maintenance Engineer: Giovani Stafford MD Glucose,Whole Bloodon 2023 Glucose [Mass/Vol] 150 mg/dL High 75-110 [facility] Glucose [Mass/Vol] 144 mg/dL High 75-110 [facility] Hgb/Hcton 06-26-2023 Hematocrit (Bld) [Volume fraction] 34.5 % Low 40.7-50.3 [facility] Comment on above: Performed By: #### C DP, BMPX, MG, SUYAPA #### [address] [address] General Maintenance Engineer: Giovani Stafford MD Hemoglobin (Bld) [Mass/Vol] 10.9 g/dL Low 13.0-17.0 [facility] Comment on above: Performed By: #### C DP, BMPX, MG, SUYAPA #### [address] [address] General Maintenance Engineer: Giovani Stafford MD Iron Binding Cap.on 06-26-19 24 % Fe Saturation 33 % Normal 20-55 [facility] Comment on above: Performed By: #### R PATRICKEC LYTE, B12FOL, MG #### [facility] [facility] [address] [place] [address] 25131 General Maintenance Engineer: Giovani Stafford MD Iron [Mass/Vol] 30 ug/dL Low 59-158 [facility] Comment on above: Performed By: #### R EJEC, LYTE, B12FOL, MG #### [facility] [address] [place] [address] 82251 General Maintenance Engineer: Giovani Stafford MD Total Fe Binding Cap 90 ug/dL Low 250-450 [facility] Comment on above: Performed By: #### R EJEC, LYTE, B12FOL, MG #### [facility] [address] [place] [address] 41916 General Maintenance Engineer: Giovani Stafford MD Unbound Fe Bind Cap 60 ug/dL Low 112-347 [facility] Comment on above: Performed By: #### R EJEC, LYTE, B12FOL, MG #### [facility] [address] [place] [address] 02357 General Maintenance Engineer: Giovani Stafford MD K (Potassium)on 06-26-2023 Potassium [Moles/Vol] 3.9 mmol/L Normal 3.7-5.[address] [facility] Comment on above: Performed By: #### C DP, BMPX, MG, SUYAPA #### [facility] [address] [place] [address] 07152 General Maintenance Engineer: Giovani Stafford MD Lactic Acidon 06-26-2023 Lactic Acid,Whole Bl 4.3 mmol/L High 0.7-2.1 [facility] Comment on above: Performed By: #### C DP, BMPX, MG, SUYAPA #### [facility] [address] [place] [address] 10528 General Maintenance Engineer: Giovani Stafford MD Lactic Acid,Whole Bl 2.3 mmol/L High 0.7-2.1 [facility] Comment on above: Performed By: #### C DP, BMPX, MG, SUYAPA #### [facility] [address] [place] [address] 59542 General Maintenance Engineer: Giovani Stafford MD Lactic Acid,Whole Bl 1.7 mmol/L Normal 0.7-2.1 [facility] Comment on above: Performed By: #### R EJEC, LYTE, B12FOL, MG #### [facility] [address] [place] [address] 95904 General Maintenance Engineer: Giovani Stafford MD Lactic Acid,Whole Bl 2.2 mmol/L High 0.7-2.1 [facility] Comment on above: Performed By: #### C DP, BMPX, MG, SUYAPA #### [facility] [address] [place] [address] 09467 General Maintenance Engineer: Giovani Stafford MD MRSA, DNA, Nasalon MRSA, DNA, Nasal Negative Normal NEG [facility] Comment on above: Result Comment: NEGA TIVE: [...] #### C DP, BMPX, MG, SUYAPA #### [facility] [facility] [address] [place] [address] 91294 General Maintenance Engineer: Giovani Stafford MD Specimen Description .NASAL SWAB Normal [facility] Comment on above: Performed By: #### C DP, BMPX, MG, SUYAPA #### [facility] [address] [place] [address] 38345 General Maintenance Engineer: Giovani Stafford MD Magnesiumon 8 Magnesium [Mass/Vol] 1.7 mg/dL Normal 1.6-2.6 [facility] Comment on above: Performed By: #### C DP, BMPX, MG, SUYAPA #### [facility] [address] [place] [address] 92462 General Maintenance Engineer: Giovani Stafford MD Magnesium [Mass/Vol] 1.4 mg/dL Low 1.6-2.6 [facility] Comment on above: Performed By: #### C DP, BMPX, MG, SUYAPA #### [facility] [address] [place] [address] 02802 General Maintenance Engineer: Giovani Stafford MD Magnesium [Mass/Vol] 1.5 mg/dL Low 1.6-2.4 [facility] Comment on above: Performed By: #### R EJEC, LYTE, B12FOL, MG #### [facility] [address] [place] [address] 80366 General Maintenance Engineer: Giovani Stafford MD Magnesium [Mass/Vol] 2.0 mg/dL Normal 1.6-2.6 [facility] Comment on above: Performed By: #### R EJEC, LYTE, B12FOL, MG #### [facility] [address] [place] [address] 22596 General Maintenance Engineer: Goivani Stafford MD Open Heart Panelon 4 Feliciano Test INFORMATION NOT PROVIDED Normal [facility] Comment on above: Performed By: #### C DP, BMPX, MG, SUYAPA #### [address] [address] General Maintenance Engineer: Giovani Stafford MD Body Temp. 37.0 Normal [facility] Comment on above: Performed By: #### C DP, BMPX, MG, SUYAPA #### [facility] [address] [place] [address] 01849 General Maintenance Engineer: Giovani Stafford MD Carboxy Hgb 1.2 % Normal 0-5 [facility] Comment on above: Result Comment: Reference Range: Non-Smokers 0-2% Average Smoker 2-4% Heavy Smoker <10% Performed By: #### C DP, BMPX, MG, SUYAPA #### [facility] [address] [place] [address] 74015 General Maintenance Engineer: Giovani Stafford MD Chloride [Moles/Vol] 106 mmol/L Normal 98-110 [facility] Comment on above: Performed By: #### C DP, BMPX, MG, SUYAPA #### [address] [address] General Maintenance Engineer: Giovani Stafford MD FIO2 60% Normal [facility] Comment on above: Performed By: #### C DP, BMPX, MG, SUYAPA #### [address] [address] General Maintenance Engineer: Giovani Stafford MD Glucose [Mass/Vol] 216 mg/dL High 75-110 [facility] Comment on above: Performed By: #### C DP, BMPX, MG, SUYAPA #### [address] [address] General Maintenance Engineer: Giovani Stafford MD HCO3 (Bld) [Moles/Vol] 24.0 mmol/L Normal 22-27 [facility] Comment on above: Performed By: #### C DP, BMPX, MG, SUYAPA #### [place] [address] General Maintenance Engineer: Giovani Stafford MD Hematocrit (Bld) [Volume fraction] 32.1 % Low 40.7-50.3 [facility] Comment on above: Performed By: #### C DP, BMPX, MG, SUYAPA #### [address] [address] General Maintenance Engineer: Giovani Stafford MD Hemoglobin (Bld) [Mass/Vol] 10.4 g/dL Low 13.0-17.0 [facility] Comment on above: Performed By: #### C DP, BMPX, MG, SUYAPA #### [address] [address] General Maintenance Engineer: Giovani Stafford MD Negative Base Excess 0.9 mmol/L Normal 0.0-2.0 [facility] Comment on above: Performed By: #### C DP, BMPX, MG, SUYAPA #### [address] [address] General Maintenance Engineer: Giovani Stafford MD Oxygen (Bld) [Partial pressure] 116.0 mm[Hg] High 75-95 [facility] Comment on above: Performed By: #### C DP, BMPX, MG, SUYAPA #### [address] [address] General Maintenance Engineer: Giovani Stafford MD Oxygen saturation in Blood 98.4 % Normal 94-100 [facility] Comment on above: Performed By: #### C DP, BMPX, MG, SUYAPA #### [address] [address] General Maintenance Engineer: Giovani Stafford MD pCO2 43.5 mmHg Normal 32-45 [facility] Comment on above: Performed By: #### C DP, BMPX, MG, SUYAPA #### [address] [address] General Maintenance Engineer: Giovani Stafford MD pH (Bld) 7.360 [pH] Normal 7.350-7.450 [facility] Comment on above: Performed By: #### C DP, BMPX, MG, SUYAPA #### [address] [address] General Maintenance Engineer: Giovani Stafford MD Potassium [Moles/Vol] 3.6 mmol/L Normal 3.6-5.[address] [facility] Comment on above: Performed By: #### C DP, BMPX, MG, SUYAPA #### [address] [address] General Maintenance Engineer: Giovani Stafford MD Sodium [Moles/Vol] 136 mmol/L Normal 136-145 [facility] Comment on above: Performed By: #### C DP, BMPX, MG, SUYAPA #### [address] [address] General Maintenance Engineer: Giovani Stafford MD PTon 06-26-2023 INR Coag (PPP) [Relative time] 1.4 {INR} Normal [facility] Comment on above: Result Comment: Therapeutic Range: Moderate Anticoagulant Intensity: INR = 2.0-3.0 High Anticoagulant Intensity: INR = 2.5-3.5 Performed By: #### C DP, BMPX, MG, SUYAPA #### [facility] [address] [place] [address] 50474 General Maintenance Engineer: Giovani Stafford MD PT Coag (PPP) [Time] 16.6 s High 11.7-14.9 [facility] Comment on above: Performed By: #### C DP, BMPX, MG, SUYAPA #### [facility] [facility] [address] [place] [address] 80158 General Maintenance Engineer: Giovani Stafford MD Phosphorus, Inorg.on 024 Phosphorus, Inorg. 3.5 mg/dL Normal 2.5-4.5 [facility] Comment on above: Performed By: #### C DP, BMPX, MG, SUYAPA #### [facility] [facility] [address] [place] [address]751 General Maintenance Engineer: Giovani Stafford MD Phosphorus, Inorg. 2.1 mg/dL Low 2.5-4.5 [facility] Comment on above: Performed By: #### R EJEC, LYTE, B12FOL, MG #### [facility] [address] [place] [address] 49867 General Maintenance Engineer: Giovani Stafford MD Resp Viral Panelon 4 Adenovirus Not detected Normal [facility] Comment on above: Performed By: #### R HEALTH UNIT COORDINATOR #### [facility] [address] [place] [address]52 General Maintenance Engineer: Giovani Stafford MD Bordet.parapertussis Not detected Normal [facility] Comment on above: Performed By: #### R HEALTH UNIT COORDINATOR #### [address] [address] General Maintenance Engineer: MD Tay Whalendetella pertussis Not detected Normal [facility] Comment on above: Performed By: #### R HEALTH UNIT COORDINATOR #### [address] [address] General Maintenance Engineer: Giovani Stafford MD Chlamyd.[email or web address] Not detected Normal [facility] Comment on above: Performed By: #### R HEALTH UNIT COORDINATOR #### [address] [address] General Maintenance Engineer: Giovani Stafford MD Coronavirus 229E Not detected Normal [facility] Comment on above: Performed By: #### R HEALTH UNIT COORDINATOR #### [address] [address] General Maintenance Engineer: Giovani Stafford MD Coronavirus HKU1 Not detected Normal [facility] Comment on above: Performed By: #### R HEALTH UNIT COORDINATOR #### [address] [address] General Maintenance Engineer: Giovani Stafford MD Coronavirus NL63 Not detected Normal [facility] Comment on above: Performed By: #### R HEALTH UNIT COORDINATOR #### [address] [address] General Maintenance Engineer: Giovani Stafford MD Coronavirus OC43 Not detected Normal [facility] Comment on above: Performed By: #### R HEALTH UNIT COORDINATOR #### [facility] [employer] [address] [place] [address] General Maintenance Engineer: Giovani Stafford MD Human Metapneumo Not detected Normal [facility] Comment on above: Performed By: #### R HEALTH UNIT COORDINATOR #### [facility] [employer] [address] [place] [address] General Maintenance Engineer: Giovani Stafford MD Influenza A Not detected Normal [facility] Comment on above: Performed By: #### R HEALTH UNIT COORDINATOR #### [facility] [employer] [address] [place] [address] General Maintenance Engineer: Giovani Stafford MD Influenza B Not detected Normal [facility] Comment on above: Performed By: #### R HEALTH UNIT COORDINATOR #### [facility] [employer] [address] [place] [address] General Maintenance Engineer: Giovani Stafford MD Mycoplas.pneumoniae Not detected Normal [facility] Comment on above: Result Comment: Perf ormed by multiplexed nucleic acid assay. Performed By: #### R HEALTH UNIT COORDINATOR #### [facility] [employer] [address] [place] [address] General Maintenance Engineer: Giovani Stafford MD Parainfluenza 1 Not detected Normal [facility] Comment on above: Performed By: #### R HEALTH UNIT COORDINATOR #### [facility] [employer] [address] [place] [address] General Maintenance Engineer: Giovani Stafford MD Parainfluenza 2 Not detected Normal [facility] Comment on above: Performed By: #### R HEALTH UNIT COORDINATOR #### [facility] [employer] [address] [place] [address] General Maintenance Engineer: Giovani Stafford MD Parainfluenza 3 Not detected Normal [facility] Comment on above: Performed By: #### R HEALTH UNIT COORDINATOR #### [facility] [employer] [address] [place] [address] General Maintenance Engineer: Giovani Stafford MD Parainfluenza 4 Not detected Normal [facility] Comment on above: Performed By: #### R HEALTH UNIT COORDINATOR #### [facility] [employer] [address] [place] [address] General Maintenance Engineer: Giovani Stafford MD Resp Syncytial Virus Not detected Normal [facility] Comment on above: Performed By: #### R HEALTH UNIT COORDINATOR #### [address] [address] General Maintenance Engineer: Giovani Stafford MD Rhino/Enterovirus Detected Abnormal [facility] Comment on above: Performed By: #### R HEALTH UNIT COORDINATOR #### [address] [address] General Maintenance Engineer: Giovani Stafford MD SARS-CoV-2 (COVID-19) RNA JEFF+probe Ql (Unsp spec) Not detected Normal [facility] Comment on above: Performed By: #### R HEALTH UNIT COORDINATOR #### [address] [address] General Maintenance Engineer: Giovani Stafford MD Source: .NASOPHARYNGEAL SWAB Normal [facility] Comment on above: Performed By: #### R HEALTH UNIT COORDINATOR #### [address] [address] General Maintenance Engineer: Giovani Stafford MD Specimen Rejectionon 024 Reason for rejection Unable to perform testing: Results suspect due to history of previous lab [facility] Comment on above: Result Comment: resu lts. Performed By: #### R ALVA BATEMAN B12FOL, MG #### [address] [address] General Maintenance Engineer: Giovani Stafford MD Source of sample .BLOOD [facility] Comment on above: Performed By: #### ALVA SANTANA B12FOL, MG #### [address] [address] General Maintenance Engineer: Giovani Stafford MD Test ordered HH [facility] Comment on above: Performed By: #### R ALVA BATEMAN B12FOL, MG #### [facility] [address] [place] [address] General Maintenance Engineer: Giovani Stafford MD Transferrinon 06-26-2023 Transferrin [Mass/Vol] 92 mg/dL Low 200-360 Me [facility] Comment on above: Performed By: #### R PINA BATEMANTE, B12FOL, MG #### [facility] [address] [place] [address] General Maintenance Engineer: Giovani Stafford MD Troponinon 06-26-2023 Troponin, High Sens 31 ng/L High 0-22 [facility] Comment on above: Result Comment: High Sensitivity Troponin values cannot be compared with other Troponin methodologies. Performed By: #### C DP BMPX, MG, SUYAPA #### [facility] [address] [place] [address] General Maintenance Engineer: Giovani Stafford MD Troponin, High Sens 26 ng/L High 0-22 [facility] Comment on above: Result Comment: High Sensitivity Troponin values cannot be compared with other Troponin methodologies. Performed By: #### C DP BMPX, MG, SUYAPA #### [facility] [address] [place] [address] General Maintenance Engineer: Giovani Stafford MD Troponin, High Sens 28 ng/L High 0-22 [facility] Comment on above: Result Comment: High Sensitivity Troponin values cannot be compared with other Troponin methodologies. Performed By: #### R PINA BATEMANTE, B12FOL, MG #### [facility] [address] [place] [address] General Maintenance Engineer: Giovani Stafford MD Type + Screenon 06-26-2023 Type + Screen Sample Expiration 06/29/2023,2359 Arm Band Number [id number] ABO/Rh(D) B POSITIVE Antibody Screen NEGATIVE Unit Number [id number] Blood Component Type Leukocyte Reduced Red Cell Unit Division 00 Status of Unit TRANSFUSED Transfusion Status OK TO TRANSFUSE Crossmatch Result COMPATIBLE Unit Number [id number] Blood Component Type Leukocyte Reduced Red Cell Unit Division 00 Status of Unit REL FROM ALLOC Transfusion Status OK TO TRANSFUSE Crossmatch Result COMPATIBLE Unit Number [id number] Blood Component Type Leukocyte Reduced Red Cell Unit Division 00 Status of Unit REL FROM ALLOC Transfusion Status OK TO TRANSFUSE Crossmatch Result COMPATIBLE Normal [facility] Comment on above: Performed By: #### C DP, BMPX, MG, SUYAPA #### [facility] [address] [place] [address] General Maintenance Engineer: Giovani Stafford MD UA w/Reflex Cultureon 2023 Bilirubin, SemiQt,Ur Negative Normal NEG [facility] Comment on above: Performed By: #### C DP, BMPX, MG, SUYAPA #### [facility] [employer] [address] [place] [address] General Maintenance Engineer: Giovani Stafford MD Blood, Urine Negative Normal NEG [facility] Comment on above: Performed By: #### C DP, BMPX, MG, SUYAPA #### [facility] [employer] [address] [place] [address] General Maintenance Engineer: Giovani Stafford MD Clarity (U) Clear Normal CLEAR [facility] Comment on above: Performed By: #### C DP, BMPX, MG, SUYAPA #### [facility] [employer] [address] [place] [address] General Maintenance Engineer: Giovani Stafford MD Color (U) Yellow Normal YEL [facility] Comment on above: Performed By: #### C DP, BMPX, MG, SUYAPA #### [facility] [employer] [address] [place] [address] General Maintenance Engineer: Giovani Satfford MD Glucose Ql (U) Negative Normal NEG [facility] Comment on above: Performed By: #### C DP, BMPX, MG, SUYAPA #### [facility] [employer] [address] [place] [address] General Maintenance Engineer: Giovani Stafford MD Ketones Ql (U) SMALL Abnormal NEG [facility] Comment on above: Performed By: #### C DP, BMPX, MG, SUYAPA #### [facility] [address] [place] [address] General Maintenance Engineer: Giovani Stafford MD Leukocyte esterase Test strip Ql (U) Negative Normal NEG [facility] Comment on above: Performed By: #### C DP, BMPX, MG, SUYAPA #### [employer] [address] [place] [address] General Maintenance Engineer: Giovani Stafford MD Nitrite,Ur Negative Normal NEG [facility] Comment on above: Performed By: #### C DP, BMPX, MG, SUYAPA #### [facility] [address] [place] [address] General Maintenance Engineer: Giovani Stafford MD PH,Ur 8.0 Normal 5.0-8.0 [facility] Comment on above: Performed By: #### C DP, BMPX, MG, SUYAPA #### [facility] [address] [place] [address] General Maintenance Engineer: Giovani Stafford MD Protein Ql (U) 1+ mg/dL Abnormal NEG [facility] Comment on above: Performed By: #### C DP, BMPX, MG, SUYAPA #### [facility] [address] [place] [address] General Maintenance Engineer: Giovani Stafford MD Spec. [place],Ur 1.026 Normal 1.005-1.030 [facility] Comment on above: Performed By: #### C DP, BMPX, MG, SUYAPA #### [employer] [address] [place] [address] General Maintenance Engineer: Giovani Stafford MD Urobilinogen,Ur Normal Normal 0.0-1.0 [facility] Comment on above: Performed By: #### C DP, BMPX, MG, SUYAPA #### [employer] [address] [place] [address] General Maintenance Engineer: Giovani Stafford MD Urinalysis,Microon 4 Bacteria None Normal NONE [facility] Comment on above: Performed By: #### C DP, BMPX, MG, SUYAPA #### [address] [address] General Maintenance Engineer: Giovani Stafford MD Casts 5 TO 10 HYALINE Normal 0-8 [facility] Comment on above: Result Comment: Refe rence range defined for non-centrifuged specimen. Performed By: #### C DP, BMPX, MG, SUYAPA #### [address] [address] General Maintenance Engineer: Giovani Stafford MD Epithelial cells LM Ql (Urine sed) 2 TO 5 Normal 0-5 [facility] Comment on above: Performed By: #### C DP, BMPX, MG, SUYAPA #### [facility] [employer] [address] [place] [address] General Maintenance Engineer: Giovani Stafford MD Urine RBC's None Normal 0-4 [facility] Comment on above: Result Comment: Refe rence range defined for non-centrifuged specimen. Performed By: #### C DP, BMPX, MG, SUYAAP #### [address] [address] General Maintenance Engineer: Giovani Stafford MD Urine WBC's 0 TO 2 Normal 0-5 [facility] Comment on above: Performed By: #### C DP, BMPX, MG, SUYAPA #### [facility] [employer] [address] [place] [address] General Maintenance Engineer: Giovani Stafford MD Vitamin D 25 OHon 06-26-2023 Vitamin D 25 OH 15.2 ng/mL Low >29.9 [facility] Comment on above: Result Comment: Reference Range: Vitamin D status Range Deficiency <20 ng/mL Mild Deficiency 20-30 ng/mL Sufficiency 30-100 ng/mL Toxicity >100 ng/mL Performed By: #### R EJEC, LYJACOB, B12FOL, MG #### [facility] [employer] [facility] [place] [phone] General Maintenance Engineer: Giovani Stafford MD Albumin Levelon 01-25-2022 Albumin [Mass/Vol] 2.6 g/dL Low 3.2-5.5 [facility] Comment on above: Order Comment: Diagn osis: I48.0, E11.9, I10 Comment: [id number], LORENA, RM113, , 01/19/22 Result Comment: PERF ORMED BY: [place] [address] PATHOLOGIST MANAGER PHOTOGRAPHY NICHOLE BOLDEN M.D. Performed By: #### D DIMER, BMP, BNP, HS TROP, CKMB, CK, CBC, PTT, PT #### [facility] [address] [place] [address] Albumin [Mass/volume] in Ser um or PlasmaOrdered By: Minh Kim on 01-25-2022 Albumin [Mass/Vol] 2.6 g/dL 3.2-5.5 [facility] Basic Metabolic Panelon 01-07 Anion gap [Moles/Vol] 12.5 mmol/L Normal 6.0-15.0 [facility] Comment on above: Order Comment: Diagn osis: I48.0, E11.9, I10 Comment: [id number], LORENA, RM113, , 01/19/22 Performed By: #### D DIMER, BMP, BNP, HS TROP, CKMB, CK, CBC, PTT, PT #### [facility] [address] [place], [place] [id number] [facility] Calcium [Mass/Vol] 8.6 mg/dL Normal 8.2-10.2 [facility] Comment on above: Order Comment: Diagn osis: I48.0, E11.9, I10 Comment: [id number], LORENA, RM113, , 01/19/22 Performed By: #### D DIMER, BMP, BNP, HS TROP, CKMB, CK, CBC, PTT, PT #### [facility] [address] Chloride [Moles/Vol] 90 mmol/L Low 95-114 [facility] Comment on above: Order Comment: Diagn osis: I48.0, E11.9, I10 Comment: [id number], LORENA [facility], , 01/19/22 Performed By: #### D DIMER, BMP, BNP, HS TROP, CKMB, CK, CBC, PTT, PT #### [facility] [address] [place] [phone] [facility] CO2 [Moles/Vol] 30.8 mmol/L High 22.0-30.0 [facility] Comment on above: Order Comment: Diagn osis: I48.0, E11.9, I10 Comment: [id number] Pringle [facility], , 01/19/22 Performed By: #### D DIMER, BMP, BNP, HS TROP, CKMB, CK, CBC, PTT, PT #### [facility] [address] Creatinine [Mass/Vol] 0.52 mg/dL Low 0.64-1.27 [facility] Comment on above: Order Comment: Diagn osis: I48.0, E11.9, I10 Comment: [id number] Pringle [facility], , 01/19/22 Performed By: #### D DIMER, BMP, BNP, HS TROP, CKMB, CK, CBC, PTT, PT #### [facility] [address] [place] [phone] [facility] Estimated GFR ( Uzma > 60 Normal [facility] Comment on above: Order Comment: Diagn osis: I48.0, E11.9, I10 Comment: LORENA Cortes [facility], , 01/19/22 Result Comment: GFR estimated reference range: According to KDOQI guidelines, <60 ml/min/1.73m2 is sufficient to diagnose a patient with chronic kidney disease. Performed By: #### D DIMER, BMP, BNP, HS TROP, CKMB, CK, CBC, PTT, PT #### [facility] [address] Estimated GFR (Non- Am > 60 Normal [facility] Comment on above: Order Comment: Diagn osis: I48.0, E11.9, I10 Comment: [id number], LORENA RMMaranda, , 01/19/22 Performed By: #### D DIMER, BMP, BNP, HS TROP, CKMB, CK, CBC, PTT, PT #### [facility] [address] Glucose [Mass/Vol] 118 mg/dL High 70-100 [facility] Comment on above: Order Comment: Diagn osis: I48.0, E11.9, I10 Comment: [id number], LORENA [facility], , 01/19/22 Result Comment: [facility] Glucose Reference Range is dependent on time and content of last meal. Glucose of more than 200 mg/dL in a nonstressed, ambulatory subject supports the diagnosis of Diabetes Mellitus. ADA recommended reference range Performed By: #### D DIMER, BMP, BNP, HS TROP, CKMB, CK, CBC, PTT, PT #### [facility] [address] Potassium [Moles/Vol] 4.3 mmol/L Normal 3.5-5.1 [facility] Comment on above: Order Comment: Diagn osis: I48.0, E11.9, I10 Comment: [id number], LORENA RMMaranda, , 01/19/22 Performed By: #### D DIMER, BMP, BNP, HS TROP, CKMB, CK, CBC, PTT, PT #### [facility] [address] [place] [phone] [facility] Sodium [Moles/Vol] 129 mmol/L Low 136-146 [facility] Comment on above: Order Comment: Diagn osis: I48.0, E11.9, I10 Comment: [id number], LORENA RMMaranda, , 01/19/22 Performed By: #### D DIMER, BMP, BNP, HS TROP, CKMB, CK, CBC, PTT, PT #### [facility] [address] Urea nitrogen [Mass/Vol] 11 mg/dL Normal 9-23 [facility] Comment on above: Order Comment: Diagn osis: I48.0, E11.9, I10 Comment: [id number] Pringle RM113, , 01/19/22 Performed By: #### D DIMER, BMP, BNP, HS TROP, CKMB, CK, CBC, PTT, PT #### [address] Basophils Auto (Bld) [#/Vol] Ordered By: Minh Kim on 01-25-2022 Basophils (Bld) [#/Vol] 0.1 10*3/uL 0.0-0.2 [facility] Basophils/100 WBC Auto (Bld) Ordered By: Minh Kim on 01-25-2022 Basophils/100 WBC (Bld) 0.7 % . [facility] Blood hemoglobin measurement (mass/volume)Ordered By: Minh Kim on 01-25-2022 Hemoglobin (Bld) [Mass/Vol] 11.4 g/dL 13.0-17.0 [facility] Blood leukocytes automated c ount (number/volume)Ordered By: Minh Kim on 01-25-2022 WBC (Bld) [#/Vol] 8.2 10*3/uL 4.5-11.0 [facility] Complete Blood Count Auto Di ffon 01-25-2022 Basophils (Bld) [#/Vol] 0.1 10*3/uL Normal 0.0-0.2 [facility] Comment on above: Order Comment: Diagn osis: I48.0, E11.9, I10 Comment: [id number] Pringle RM113, , 01/19/22 Result Comment: PERF ORMED BY: [place] [address] PATHOLOGIST MANAGER PHOTOGRAPHY NICHOLE BOLDEN M.D. Performed By: #### D DIMER, BMP, BNP, HS TROP, CKMB, CK, CBC, PTT, PT #### [address] Basophils/100 WBC (Bld) 0.7 % Normal . [facility] Comment on above: Order Comment: Diagn osis: I48.0, E11.9, I10 Comment: [id number], OGSOBEIDAZ, RM113, , 01/19/22 Performed By: #### D DIMER, BMP, BNP, HS TROP, CKMB, CK, CBC, PTT, PT #### [facility] [address] Eosinophils (Bld) [#/Vol] 0.1 10*3/uL Normal 0.0-0.45 [facility] Comment on above: Order Comment: Diagn osis: I48.0, E11.9, I10 Comment: [id number], OGSOBEIDAZ, RM113, , 01/19/22 Performed By: #### D DIMER, BMP, BNP, HS TROP, CKMB, CK, CBC, PTT, PT #### [facility] [address] [place] [address] Eosinophils/100 WBC (Bld) 0.9 % Normal . [facility] Comment on above: Order Comment: Diagn osis: I48.0, E11.9, I10 Comment: [id number], KAYCEEZ, RM113, , 01/19/22 Performed By: #### D DIMER, BMP, BNP, HS TROP, CKMB, CK, CBC, PTT, PT #### [address] Erythrocyte distribution width (RBC) [Ratio] 12.8 % Normal 12.0-14.8 [facility] Comment on above: Order Comment: Diagn osis: I48.0, E11.9, I10 Comment: [id number], OGONTZ, RM113, , 01/19/22 Performed By: #### D DIMER, BMP, BNP, HS TROP, CKMB, CK, CBC, PTT, PT #### [address] Hematocrit (Bld) [Volume fraction] 33.7 % Low 38.8-50.0 [facility] Comment on above: Order Comment: Diagn osis: I48.0, E11.9, I10 Comment: [id number], OGONTZ, RM113, , 01/19/22 Performed By: #### D DIMER, BMP, BNP, HS TROP, CKMB, CK, CBC, PTT, PT #### [facility] [address] Hemoglobin (Bld) [Mass/Vol] 11.4 g/dL Low 13.0-17.0 [facility] Comment on above: Order Comment: Diagn osis: I48.0, E11.9, I10 Comment: [id number], OGONTZ, RM113, , 01/19/22 Performed By: #### D DIMER, BMP, BNP, HS TROP, CKMB, CK, CBC, PTT, PT #### [address] Lymphocytes (Bld) [#/Vol] 0.6 10*3/uL Low 1.00-4.8 [facility] Comment on above: Order Comment: Diagn osis: I48.0, E11.9, I10 Comment: [id number], OGONTZ, RM113, , 01/19/22 Performed By: #### D DIMER, BMP, BNP, HS TROP, CKMB, CK, CBC, PTT, PT #### [address] Lymphocytes/100 WBC (Bld) 7.6 % Normal . [facility] Comment on above: Order Comment: Diagn osis: I48.0, E11.9, I10 Comment: [id number], OGONTZ, RM113, , 01/19/22 Performed By: #### D DIMER, BMP, BNP, HS TROP, CKMB, CK, CBC, PTT, PT #### [facility] [address] MCH (RBC) [Entitic mass] 31.9 pg Normal 27.5-35.2 [facility] Comment on above: Order Comment: Diagn osis: I48.0, E11.9, I10 Comment: [id number], OGONTZ, RM113, , 01/19/22 Performed By: #### D DIMER, BMP, BNP, HS TROP, CKMB, CK, CBC, PTT, PT #### [facility] [address] MCV (RBC) [Entitic vol] 94.4 fL Normal 83.5-101 F [facility] Comment on above: Order Comment: Diagn osis: I48.0, E11.9, I10 Comment: [id number], LORENA, [facility], , 01/19/22 Performed By: #### D DIMER, BMP, BNP, HS TROP, CKMB, CK, CBC, PTT, PT #### [facility] [address] Mean Corpuscular HGB Conc 33.8 g/dL Normal 32.5-35.6 [facility] Comment on above: Order Comment: Diagn osis: I48.0, E11.9, I10 Comment: [id number], LORENA, [facility], , 01/19/22 Performed By: #### D DIMER, BMP, BNP, HS TROP, CKMB, CK, CBC, PTT, PT #### [address] Monocytes (Bld) [#/Vol] 0.9 10*3/uL High 0.0-0.8 [facility] Comment on above: Order Comment: Diagn osis: I48.0, E11.9, I10 Comment: [id number], LORENA, [facility], , 01/19/22 Performed By: #### D DIMER, BMP, BNP, HS TROP, CKMB, CK, CBC, PTT, PT #### [address] Monocytes/100 WBC (Bld) 10.7 % Normal . [facility] Comment on above: Order Comment: Diagn osis: I48.0, E11.9, I10 Comment: [id number], LORENA, [facility], , 01/19/22 Performed By: #### D DIMER, BMP, BNP, HS TROP, CKMB, CK, CBC, PTT, PT #### [address] Neutrophils (Bld) [#/Vol] 6.6 10*3/uL Normal 1.8-7.7 [facility] Comment on above: Order Comment: Diagn osis: I48.0, E11.9, I10 Comment: [id number], LORENA, [facility], , 01/19/22 Performed By: #### D DIMER, BMP, BNP, HS TROP, CKMB, CK, CBC, PTT, PT #### [facility] [address] Neutrophils/100 WBC (Bld) 80.1 % Normal . [facility] Comment on above: Order Comment: Diagn osis: I48.0, E11.9, I10 Comment: [id number], LORENA, [facility], , 01/19/22 Performed By: #### D DIMER, BMP, BNP, HS TROP, CKMB, CK, CBC, PTT, PT #### [facility] [address] [place] [address] Nucleated RBC/100 WBC (Bld) [Ratio] 0.1 % Normal 0-0.5 [facility] Comment on above: Order Comment: Diagn osis: I48.0, E11.9, I10 Comment: [id number], LORENA, [facility], , 01/19/22 Performed By: #### D DIMER, BMP, BNP, HS TROP, CKMB, CK, CBC, PTT, PT #### [facility] [address] [place] [address] Platelet mean volume (Bld) [Entitic vol] 9.0 fL Normal 6.6-10.1 [facility] Comment on above: Order Comment: Diagn osis: I48.0, E11.9, I10 Comment: [id number], LORENA, [facility], , 01/19/22 Performed By: #### D DIMER, BMP, BNP, HS TROP, CKMB, CK, CBC, PTT, PT #### [facility] [address] [place] [address] [place] Platelets (Bld) [#/Vol] 401 10*3/uL Normal 150-450 [facility] Comment on above: Order Comment: Diagn osis: I48.0, E11.9, I10 Comment: [id number], OGSOBEIDAZ, RM113, , 01/19/22 Performed By: #### D DIMER, BMP, BNP, HS TROP, CKMB, CK, CBC, PTT, PT #### [facility] [address] RBC (Bld) [#/Vol] 3.57 10*6/uL Low 3.90-5.60 [facility] Comment on above: Order Comment: Diagn osis: I48.0, E11.9, I10 Comment: [id number], OGONTZ, RM113, , 01/19/22 Performed By: #### D DIMER, BMP, BNP, HS TROP, CKMB, CK, CBC, PTT, PT #### [facility] [address] [place] [phone] [facility] WBC (Bld) [#/Vol] 8.2 10*3/uL Normal 4.5-11.0 [facility] Comment on above: Order Comment: Diagn osis: I48.0, E11.9, I10 Comment: [id number], OGSOBEIDAZ, RM113, , 01/19/22 Performed By: #### D DIMER, BMP, BNP, HS TROP, CKMB, CK, CBC, PTT, PT #### [facility] [address] Creatinine and Glomerular fi ltration rate.predicted panel (S/P/Bld)Ordered By: Minh Kim on 01-25-2022 Creatinine [Mass/Vol] 0.52 mg/dL 0.64-1.27 [facility] Eosinophils Auto (Bld) [#/Vo l]Ordered By: Minh Kim on 01-25-2022 Eosinophils (Bld) [#/Vol] 0.1 10*3/uL 0.0-0.45 [facility] Eosinophils/100 WBC Auto (Bl d)Ordered By: Minh Kim on 01-25-2022 Eosinophils/100 WBC (Bld) 0.9 % . [facility] Erythrocyte distribution wid th Auto (RBC) [Ratio]Ordered By: Minh Kim on 01-25-2022 Erythrocyte distribution width (RBC) [Ratio] 12.8 % 12.0-14.8 [facility] Estimated glomerular filtrat ion rate (GFR) non- AmericanOrdered By: Minh Kim on 01-25-2022 GFR/1.73 sq M.predicted among non-blacks MDRD (S/P/Bld) [Vol rate/Area] > 60 mL/Min [facility] [facility] Hematocrit Auto (Bld) [Volum e fraction]Ordered By: Minh Kim on 01-25-2022 Hematocrit (Bld) [Volume fraction] 33.7 % 38.8-50.0 [facility] - Hematology and Cell countsOrdered By: Minh Kim on 01-25-2022 Nucleated RBC/100 WBC (Bld) [Ratio] 0.1 % 0-0.5 [facility] Lymphocytes Auto (Bld) [#/Vo l]Ordered By: Minh Kim on 01-25-2022 Lymphocytes (Bld) [#/Vol] 0.6 10*3/uL 1.00-4.8 [facility] Lymphocytes/100 WBC Auto (Bl d)Ordered By: Minh Kim on 01-25-2022 Lymphocytes/100 WBC (Bld) 7.6 % . [facility] MCH Auto (RBC) [Entitic mass ]Ordered By: Minh Kim on 01-25-2022 MCH (RBC) [Entitic mass] 31.9 pg 27.5-35.2 [facility] MCHC Auto (RBC) [Mass/Vol]Or dered By: Minh Kim on 01-25-2022 MCHC (RBC) [Mass/Vol] 33.8 g/dL 32.5-35.6 [facility] MCV Auto (RBC) [Entitic vol] Ordered By: Minh Kim on 01-25-2022 MCV (RBC) [Entitic vol] 94.4 fL 83.5-101 F [facility] Monocytes Auto (Bld) [#/Vol] Ordered By: Minh Kim on 01-25-2022 Monocytes (Bld) [#/Vol] 0.9 10*3/uL 0.0-0.8 [facility] Monocytes/100 WBC Auto (Bld) Ordered By: Minh Kim on 01-25-2022 Monocytes/100 WBC (Bld) 10.7 % . [facility] Neutrophils Auto (Bld) [#/Vo l]Ordered By: Minh Kim on 01-25-2022 Neutrophils (Bld) [#/Vol] 6.6 10*3/uL 1.8-7.7 [facility] Neutrophils/100 WBC Auto (Bl d)Ordered By: Minh Kim on 01-25-2022 Neutrophils/100 WBC (Bld) 80.1 % . [facility] No Panel InformationOrdered By: Minh Kim on 01-25-2022 Estimated GFR () > 60 mL/Min [facility] Comment on above: GFR estimated refere nce range: According to KDOQI guidelines, <60 ml/min/1.73m2 is sufficient to diagnose a patient with chronic kidney disease. Pharmacy Creatinine Clearance (Chem N/A [facility] Platelet mean volume Auto (B ld) [Entitic vol]Ordered By: Minh Kim on 01-25-2022 Platelet mean volume (Bld) [Entitic vol] 9.0 fL 6.6-10.1 [facility] Platelets Auto (Bld) [#/Vol] Ordered By: Minh Kim on 01-25-2022 Platelets (Bld) [#/Vol] 401 10*3/uL 150-450 [facility] RBC Auto (Bld) [#/Vol]Ordere d By: Minh Kim on 01-25-2022 RBC (Bld) [#/Vol] 3.57 10*6/uL 3.90-5.60 [facility] Serum or plasma anion gap de terminationOrdered By: Minh Kim on 01-25-2022 Anion gap [Moles/Vol] 12.5 mmol/L 6.0-15.0 [facility] Serum or plasma calcium babita urement (mass/volume)Ordered By: Minh Kim on 01-25-2022 Calcium [Mass/Vol] 8.6 mg/dL 8.2-10.2 [facility] Serum or plasma chloride sabrina surement (moles/volume)Ordered By: Minh Kim on 01-25-2022 Chloride [Moles/Vol] 90 mmol/L 95-114 [facility] Serum or plasma glucose babita urement (mass/volume)Ordered By: Minh Kim on 01-25-2022 Glucose [Mass/Vol] 118 mg/dL 70-100 [facility] Comment on above: ADA recommended refe rence range Random Glucose Reference Range is dependent on time and content of last meal. Glucose of more than 200 mg/dL in a nonstressed, ambulatory subject supports the diagnosis of Diabetes Mellitus. Serum or plasma potassium me asurement (moles/volume)Ordered By: Minh Kim on 01-25-2022 Potassium [Moles/Vol] 4.3 mmol/L 3.5-5.1 [facility] Serum or plasma sodium measu rement (moles/volume)Ordered By: Minh Kim on 01-25-2022 Sodium [Moles/Vol] 129 mmol/L 136-146 [facility] Serum or plasma total carbon dioxide measurement (moles/volume)Ordered By: Minh Kim on 01-25-2022 CO2 [Moles/Vol] 30.8 mmol/L 22.0-30.0 [facility] Serum or plasma urea nitroge n measurement (mass/volume)Ordered By: Mihn Kim on 01-25-2022 Urea nitrogen [Mass/Vol] 11 mg/dL 01-28 [facility] A1C with Estimated Average G luon 01-11-2022 Glucose [Mass/Vol] 146 mg/dL Normal [facility] Comment on above: Order Comment: Diagn osis: D50.9, E11.9, E78.5 Comment: [id number], LORENA, RM113, , 01/07/22 Result Comment: PERF ORMED BY: [facility] [address] [place] [address] PATHOLOGIST MANAGER PHOTOGRAPHY NICHOLE BOLDEN M.D. Performed By: #### D DIMER, BMP, BNP, HS TROP, CKMB, CK, CBC, PTT, PT #### [facility] [address] HbA1c (Bld) [Mass fraction] 6.7 % High 4.3-5.6 [facility] Comment on above: Order Comment: Diagn osis: D50., E11, E78. Comment: [id number], LORENA, RM113, , 01/07/22 Result Comment: Incr eased risk for diabetes: 5.7 - 6.4 diabetes: >6.4 glycemic control for adults with diabetes: <7.0 Performed By: #### D DIMER, BMP, BNP, HS TROP, CKMB, CK, CBC, PTT, PT #### [address] Albumin Levelon 01-11-2022 Albumin [Mass/Vol] 2.8 g/dL Low 3.2-5.5 [facility] Comment on above: Order Comment: Diagn osis: , , Comment: [id number], TRAVIS CARRILLO, , 01/07/22 Result Comment: PERF ORMED BY: [place] [address] PATHOLOGIST MANAGER PHOTOGRAPHY NICHOLE BOLDEN M.D. Performed By: #### D DIMER, BMP, BNP, HS TROP, CKMB, CK, CBC, PTT, PT #### [address] Automated basophil %Ordered By: Minh Kim on 01-11-2022 Basophils/100 WBC (Bld) 0.8 % Normal . [facility] Comment on above: Order Comment: Diagn osis: D5, , Comment: [id number], LORENA, RMMaranda, , 01/07/22 Performed By: #### D DIMER, BMP, BNP, HS TROP, CKMB, CK, CBC, PTT, PT #### [place] [id number] [facility] Automated basophil countOrde red By: Minh Kim on 01-11-2022 Basophils (Bld) [#/Vol] 0.1 10*3/uL Normal 0.0-0.2 [facility] Comment on above: Order Comment: Diagn osis: D50., E11, E78. Comment: [id number], OGONTZ, RM113, , 01/07/22 Result Comment: PERF ORMED BY: [place] [address] PATHOLOGIST MANAGER PHOTOGRAPHY NICHOLE BOLDEN M.D. Performed By: #### D DIMER, BMP, BNP, HS TROP, CKMB, CK, CBC, PTT, PT #### [address] Automated blood lymphocyte c ount (number/volume)Ordered By: Minh Kim on 01-11-2022 Lymphocytes (Bld) [#/Vol] 0.6 10*3/uL Low 1.00-4.8 [facility] Comment on above: Order Comment: Diagn osis: D5., E11., E78. Comment: [id number], OGONTZ, RM113, , 01/07/22 Performed By: #### D DIMER, BMP, BNP, HS TROP, CKMB, CK, CBC, PTT, PT #### [address] Automated blood lymphocyte c ount as percentage of total leukocytesOrdered By: Minh Kim on 01-11-2022 Lymphocytes/100 WBC (Bld) 8.0 % Normal . [facility] Comment on above: Order Comment: Diagn osis: D50., E11., E78.5 Comment: [id number], OGONTZ, RM113, , 01/07/22 Performed By: #### D DIMER, BMP, BNP, HS TROP, CKMB, CK, CBC, PTT, PT #### [address] Automated blood monocyte cou ntOrdered By: Minh Kim on 01-11-2022 Monocytes (Bld) [#/Vol] 1.1 10*3/uL High 0.0-0.8 [facility] Comment on above: Order Comment: Diagn osis: D50., E11., E78.5 Comment: [id number], OGONTZ, RM113, , 01/07/22 Performed By: #### D DIMER, BMP, BNP, HS TROP, CKMB, CK, CBC, PTT, PT #### [facility] [address] Automated blood platelet cou nt (count/volume)Ordered By: Minh Kim on 01-11-2022 Platelets (Bld) [#/Vol] 383 10*3/uL Normal 150-450 [facility] Comment on above: Order Comment: Diagn osis: D50.9, E11.9, E78.5 Comment: [id number], OGSOBEIDAZ, RM113, , 01/07/22 Performed By: #### D DIMER, BMP, BNP, HS TROP, CKMB, CK, CBC, PTT, PT #### [facility] [address] [place] [address] Automated blood platelet sabrina n volume measurementOrdered By: Minh Kim on 01-11-2022 Platelet mean volume (Bld) [Entitic vol] 9.0 fL Normal 6.6-10.1 [facility] Comment on above: Order Comment: Diagn osis: D50.9, E11.9, E78.5 Comment: [id number], OGONTZ, RM113, , 01/07/22 Performed By: #### D DIMER, BMP, BNP, HS TROP, CKMB, CK, CBC, PTT, PT #### [address] Automated eosinophil %Ordere d By: Minh Kim on 01-11-2022 Eosinophils/100 WBC (Bld) 1.2 % Normal . [facility] Comment on above: Order Comment: Diagn osis: D50.9, E11.9, E78.5 Comment: [id number], OGONTZ, RM113, , 01/07/22 Performed By: #### D DIMER, BMP, BNP, HS TROP, CKMB, CK, CBC, PTT, PT #### [address] Automated eosinophil countOr dered By: Minh Kim on 01-11-2022 Eosinophils (Bld) [#/Vol] 0.1 10*3/uL Normal 0.0-0.45 [facility] Comment on above: Order Comment: Diagn osis: D50.9, ., E78. Comment: [id number], OGONTZ, RM113, , 01/07/22 Performed By: #### D DIMER, BMP, BNP, HS TROP, CKMB, CK, CBC, PTT, PT #### [address] Automated erythrocyte distri bution width ratioOrdered By: Minh Kim on 01-11-2022 Erythrocyte distribution width (RBC) [Ratio] 12.9 % Normal 12.0-14.8 [facility] Comment on above: Order Comment: Diagn osis: D50., E11., E78. Comment: [id number], OGONTZ, RM113, , 01/07/22 Performed By: #### D DIMER, BMP, BNP, HS TROP, CKMB, CK, CBC, PTT, PT #### [address] Automated erythrocyte mean c orpuscular hemoglobin (mass per erythrocyte)Ordered By: Minh Kim on 01-11-2022 MCH (RBC) [Entitic mass] 32.6 pg Normal 27.5-35.2 [facility] Comment on above: Order Comment: Diagn osis: D5, , E78. Comment: [id number], OGSOBEIDAZ, RM113, , 01/07/22 Performed By: #### D DIMER, BMP, BNP, HS TROP, CKMB, CK, CBC, PTT, PT #### [address] Automated erythrocyte mean c orpuscular volumeOrdered By: Minh Kim on 01-11-2022 MCV (RBC) [Entitic vol] 96.5 fL Normal 83.5-101 F [facility] Comment on above: Order Comment: Diagn osis: D5, , E78. Comment: [id number], OGONTZ, RM113, , 01/07/22 Performed By: #### D DIMER, BMP, BNP, HS TROP, CKMB, CK, CBC, PTT, PT #### [address] Automated monocyte %Ordered By: Minh Kim on 01-11-2022 Monocytes/100 WBC (Bld) 14.8 % Normal . [facility] Comment on above: Order Comment: Diagn osis: D5., , E78. Comment: [id number], OGONTZ, RM113, , 01/07/22 Performed By: #### D DIMER, BMP, BNP, HS TROP, CKMB, CK, CBC, PTT, PT #### [facility] [address] [place] [id number] [facility] Automated neutrophil %Ordere d By: Minh Kim on 01-11-2022 Neutrophils/100 WBC (Bld) 75.2 % Normal . [facility] Comment on above: Order Comment: Diagn osis: D5, , Comment: [id number], OGONTZ, RM113, , 01/07/22 Performed By: #### D DIMER, BMP, BNP, HS TROP, CKMB, CK, CBC, PTT, PT #### [place] [id number] [facility] Basic Metabolic Panelon 09-0 Anion gap [Moles/Vol] 13.7 mmol/L Normal 6.0-15.0 [facility] Comment on above: Order Comment: Diagn osis: D5, , Comment: [id number], OGONTZ, RM113, , 01/07/22 Performed By: #### D DIMER, BMP, BNP, HS TROP, CKMB, CK, CBC, PTT, PT #### [place] [id number] [facility] Calcium [Mass/Vol] 8.7 mg/dL Normal 8.2-10.2 [facility] Comment on above: Order Comment: Diagn osis: D5, , Comment: [id number], OGONTZ, RM113, , 01/07/22 Performed By: #### D DIMER, BMP, BNP, HS TROP, CKMB, CK, CBC, PTT, PT #### [facility] [address] Chloride [Moles/Vol] 93 mmol/L Low 95-114 [facility] Comment on above: Order Comment: Diagn osis: D50.9, E11.9, E78.5 Comment: LORENA Contreras RM113, , 01/07/22 Performed By: #### D DIMER, BMP, BNP, HS TROP, CKMB, CK, CBC, PTT, PT #### [facility] [address] [place] [id number] [facility] CO2 [Moles/Vol] 28.2 mmol/L Normal 22.0-30.0 [facility] Comment on above: Order Comment: Diagn osis: D50.9, E11.9, E78.5 Comment: [id number] RM113, , 01/07/22 Performed By: #### D DIMER, BMP, BNP, HS TROP, CKMB, CK, CBC, PTT, PT #### [facility] [address] Creatinine [Mass/Vol] 0.55 mg/dL Low 0.64-1.27 [facility] Comment on above: Order Comment: Diagn osis: D50.9, E11.9, E78.5 Comment: LORENA Contreras RM113, , 01/07/22 Performed By: #### D DIMER, BMP, BNP, HS TROP, CKMB, CK, CBC, PTT, PT #### [facility] [address] Estimated GFR ( Uzma > 60 [facility] Comment on above: Order Comment: Diagn osis: D50.9, E11., E78.5 Comment: [id number], TRAVIS CARRILLO, , 01/07/22 Result Comment: GFR estimated reference range: According to KDOQI guidelines, <60 ml/min/1.73m2 is sufficient to diagnose a patient with chronic kidney disease. Performed By: #### D DIMER, BMP, BNP, HS TROP, CKMB, CK, CBC, PTT, PT #### [facility] [address] [place] [id number] [facility] Estimated GFR (Non- Am > 60 Normal [facility] Comment on above: Order Comment: Diagn osis: D50.9, E11.9, E78.5 Comment: [id number], LORENA RMMaranda, , 01/07/22 Performed By: #### D DIMER, BMP, BNP, HS TROP, CKMB, CK, CBC, PTT, PT #### [facility] [address] [place] [id number] [facility] Glucose [Mass/Vol] 133 mg/dL High 70-100 [facility] Comment on above: Order Comment: Diagn osis: D50.9, E11.9, E78.5 Comment: [id number], LORENA RMMaranda, , 01/07/22 Result Comment: [facility] Glucose Reference Range is dependent on time and content of last meal. Glucose of more than 200 mg/dL in a nonstressed, ambulatory subject supports the diagnosis of Diabetes Mellitus. ADA recommended reference range Performed By: #### D DIMER, BMP, BNP, HS TROP, CKMB, CK, CBC, PTT, PT #### [facility] [address] [place] [id number] [facility] Potassium [Moles/Vol] 3.9 mmol/L Normal 3.5-5.1 [facility] Comment on above: Order Comment: Diagn osis: D50.9, E11.9, E78.5 Comment: [id number], TRAVIS CARRILLO, , 01/07/22 Performed By: #### D DIMER, BMP, BNP, HS TROP, CKMB, CK, CBC, PTT, PT #### [facility] [address] [place] [id number] [facility] Sodium [Moles/Vol] 131 mmol/L Low 136-146 [facility] Comment on above: Order Comment: Diagn osis: D50.9, E11.9, E78.5 Comment: [id number], TRAVIS CARRILLO, , 01/07/22 Performed By: #### D DIMER, BMP, BNP, HS TROP, CKMB, CK, CBC, PTT, PT #### [facility] [address] [place] [id number] [facility] Urea nitrogen [Mass/Vol] 13 mg/dL Normal 9-23 [facility] Comment on above: Order Comment: Diagn osis: D50.9, E11.9, E78.5 Comment: [id number], OGONTZ, RM113, , 01/07/22 Performed By: #### D DIMER, BMP, BNP, HS TROP, CKMB, CK, CBC, PTT, PT #### [facility] [address] [place] [id number] [facility] Blood erythrocytes automated count (number/volume)Ordered By: Minh Kim on 01-11-2022 RBC (Bld) [#/Vol] 3.47 10*6/uL Low 3.90-5.60 [facility] Comment on above: Order Comment: Diagn osis: D50., E11., E78. Comment: [id number], OGONTZ, RM113, , 01/07/22 Performed By: #### D DIMER, BMP, BNP, HS TROP, CKMB, CK, CBC, PTT, PT #### [address] Blood hemoglobin measurement (mass/volume)Ordered By: Minh Kim on 01-11-2022 Hemoglobin (Bld) [Mass/Vol] 11.3 g/dL Low 13.0-17.0 [facility] Comment on above: Order Comment: Diagn osis: D50., E11., E78. Comment: [id number], OGONTZ, RM113, , 01/07/22 Performed By: #### D DIMER, BMP, BNP, HS TROP, CKMB, CK, CBC, PTT, PT #### [place] [id number] [facility] Blood leukocytes automated c ount (number/volume)Ordered By: Minh Kim on 01-11-2022 WBC (Bld) [#/Vol] 7.5 10*3/uL Normal 4.5-11.0 [facility] Comment on above: Order Comment: Diagn osis: D50.9, E11.9, E78.5 Comment: [id number], OGONTZ, RM113, , 01/07/22 Performed By: #### D DIMER, BMP, BNP, HS TROP, CKMB, CK, CBC, PTT, PT #### [facility] [address] Blood neutrophil count by au tomated method (number/volume)Ordered By: Minh Kim on 01-11-2022 Neutrophils (Bld) [#/Vol] 5.7 10*3/uL Normal 1.8-7.7 [facility] Comment on above: Order Comment: Diagn osis: D50.9, E11.9, E78.5 Comment: [id number], TRAVIS CARRILLO, , 01/07/22 Performed By: #### D DIMER, BMP, BNP, HS TROP, CKMB, CK, CBC, PTT, PT #### [address] Body fluid albumin measureme nt (mass/volume)Ordered By: Minh Kim on 01-11-2022 Albumin (Body fld) [Mass/Vol] 2.8 g/dL 3.2-5.5 [facility] Complete Blood Count Auto Di ffon 01-11-2022 Mean Corpuscular HGB Conc 33.8 g/dL Normal 32.5-35.6 [facility] Comment on above: Order Comment: Diagn osis: D50.9, E11.9, E78.5 Comment: [id number], TRAVIS CARRILLO, , 01/07/22 Performed By: #### D DIMER, BMP, BNP, HS TROP, CKMB, CK, CBC, PTT, PT #### [address] Complete Blood Count Auto Di ffOrdered By: Minh Kim on 01-11-2022 Nucleated RBC/100 WBC (Bld) [Ratio] 0.1 % Normal 0-0.5 [facility] Comment on above: Order Comment: Diagn osis: D50., E11., E78.5 Comment: [id number], TRAVIS CARRILLO, , 01/07/22 Performed By: #### D DIMER, BMP, BNP, HS TROP, CKMB, CK, CBC, PTT, PT #### [address] Creatinine and Glomerular fi ltration rate.predicted panel (S/P/Bld)Ordered By: Minh Kim on 01-11-2022 Creatinine [Mass/Vol] 0.55 mg/dL 0.64-1.27 [facility] Estimated glomerular filtrat ion rate (GFR) non- AmericanOrdered By: Minh Kim on 01-11-2022 GFR/1.73 sq M.predicted among non-blacks MDRD (S/P/Bld) [Vol rate/Area] > 60 mL/Min [facility] Glucose mean value [Mass/vol ume] in Blood Estimated from glycated hemoglobinOrdered By: Minh Kim on 01-11-2022 Average glucose Estimated from glycated hemoglobin (Bld) [Mass/Vol] 146 mg/dL [facility] Hematocrit [Volume Fraction] of Blood by Automated countOrdered By: Minh Kim on 01-11-2022 Hematocrit (Bld) [Volume fraction] 33.5 % Low 38.8-50.0 [facility] Comment on above: Order Comment: Diagn osis: D50.9, E11.9, E78.5 Comment: [id number], OGSOBEIDAZ, RM113, HM, 01/07/22 Performed By: #### D DIMER, BMP, BNP, HS TROP, CKMB, CK, CBC, PTT, PT #### [facility] [address] Hemoglobin A1c percentageOrd ered By: Minh Kim on 01-11-2022 HbA1c (Bld) [Mass fraction] 6.7 % 4.3-5.6 [facility] Comment on above: Increased risk for d iabetes: 5.7 - 6.4 diabetes: >6.4 glycemic control for adults with diabetes: <7.0 MCHC Auto (RBC) [Mass/Vol]Or dered By: Minh Kim on 01-11-2022 MCHC (RBC) [Mass/Vol] 33.8 g/dL 32.5-35.6 [facility] No Panel InformationOrdered By: Minh Kim on 01-11-2022 Estimated GFR () > 60 mL/Min [facility] Comment on above: GFR estimated refere nce range: According to KDOQI guidelines, <60 ml/min/1.73m2 is sufficient to diagnose a patient with chronic kidney disease. Pharmacy Creatinine Clearance (Chem N/A [facility] Serum or plasma anion gap de terminationOrdered By: Minh Kim on 01-11-2022 Anion gap [Moles/Vol] 13.7 mmol/L 6.0-15.0 [facility] Serum or plasma calcium babita urement (mass/volume)Ordered By: Minh Kim on 01-11-2022 Calcium [Mass/Vol] 8.7 mg/dL 8.2-10.2 [facility] Serum or plasma chloride sabrina surement (moles/volume)Ordered By: Minh Kim on 01-11-2022 Chloride [Moles/Vol] 93 mmol/L 95-114 [facility] Serum or plasma glucose babita urement (mass/volume)Ordered By: Minh Kim on 01-11-2022 Glucose [Mass/Vol] 133 mg/dL 70-100 [facility] Comment on above: ADA recommended refe rence range Random Glucose Reference Range is dependent on time and content of last meal. Glucose of more than 200 mg/dL in a nonstressed, ambulatory subject supports the diagnosis of Diabetes Mellitus. Serum or plasma potassium me asurement (moles/volume)Ordered By: Minh Kim on 01-11-2022 Potassium [Moles/Vol] 3.9 mmol/L 3.5-5.1 [facility] Serum or plasma sodium measu rement (moles/volume)Ordered By: Minh Kim on 01-11-2022 Sodium [Moles/Vol] 131 mmol/L 136-146 [facility] Serum or plasma total carbon dioxide measurement (moles/volume)Ordered By: Minh Kim on 01-11-2022 CO2 [Moles/Vol] 28.2 mmol/L 22.0-30.0 [facility] Serum or plasma urea nitroge n measurement (mass/volume)Ordered By: Minh Kim on 01-11-2022 Urea nitrogen [Mass/Vol] 13 mg/dL 9-23 [facility] Bacterial blood cultureOrder ed By: Ronit Caruso on 09-01-2022 Bacteria identified Cx Nom (Bld) NO GROWTH 5 DAYS [facility] Glucose Glucometer (BldC) [M ass/Vol]Ordered By: Mohsen Muniz on 01-05-2022 Glucose [Mass/Vol] 147 mg/dL [facility] Comment on above: Random Glucose Refer ence Range is dependent on time and content of last meal. Glucose of more than 200 mg/dL in a nonstressed, ambulatory subject supports the diagnosis of Diabetes Mellitus. Glucose Poct Glucometerson 0 01-05-2022 Commemt1 Glu2: Cleaned Meter Normal [facility] Comment on above: Result Comment: PERF ORMED BY: [place] [address] PATHOLOGIST MANAGER PHOTOGRAPHY NICHOLE BOLDEN M.D. Performed By: #### D DIMER, BMP, BNP, HS TROP, CKMB, CK, CBC, PTT, PT #### [facility] [address] [place] [address] Glucose [Mass/Vol] 127 mg/dL Normal [facility] Comment on above: Result Comment: [place] Glucose Reference Range is dependent on time and content of last meal. Glucose of more than 200 mg/dL in a nonstressed, ambulatory subject supports the diagnosis of Diabetes Mellitus. PERFORMED BY: [place] [address] PATHOLOGIST MANAGER PHOTOGRAPHY NICHOLE BOLDEN M.D. Performed By: #### D DIMER, BMP, BNP, HS TROP, CKMB, CK, CBC, PTT, PT #### [facility] [address] [place], [place] [id number] [place] Glucose [Mass/Vol] 153 mg/dL Normal [facility] Comment on above: Result Comment: [place] om Glucose Reference Range is dependent on time and content of last meal. Glucose of more than 200 mg/dL in a nonstressed, ambulatory subject supports the diagnosis of Diabetes Mellitus. PERFORMED BY: [place] [address] PATHOLOGIST MANAGER PHOTOGRAPHY NICHOLE BOLDEN M.D. Performed By: #### D DIMER, BMP, BNP, HS TROP, CKMB, CK, CBC, PTT, PT #### [facility] [address] [place] [address] [place] Glucose [Mass/Vol] 147 mg/dL Normal [facility] Comment on above: Result Comment: [place] Glucose Reference Range is dependent on time and content of last meal. Glucose of more than 200 mg/dL in a nonstressed, ambulatory subject supports the diagnosis of Diabetes Mellitus. Performed By: #### D DIMER, BMP, BNP, HS TROP, CKMB, CK, CBC, PTT, PT #### [facility] [address] [place] [id number] [facility] No Panel InformationOrdered By: Mohsen Muniz on 01-05-2022 Bedside Glucose Comment Glu2: cleaned meter [facility] Albumin [Mass/volume] in Ser um or PlasmaOrdered By: Mohsen Muniz on 01-04-2022 Albumin [Mass/Vol] 3.0 g/dL 3.2-5.5 [facility] Basophils Auto (Bld) [#/Vol] Ordered By: Mohsen Muniz on 01-04-2022 Basophils (Bld) [#/Vol] 0.0 10*3/uL 0.0-0.2 [facility] Basophils/100 WBC Auto (Bld) Ordered By: Mohsen Muniz on 01-04-2022 Basophils/100 WBC (Bld) 0.5 % . [facility] Blood hemoglobin measurement (mass/volume)Ordered By: Mohsen Muniz on 01-04-2022 Hemoglobin (Bld) [Mass/Vol] 12.3 g/dL 13.0-17.0 [facility] Blood leukocytes automated c ount (number/volume)Ordered By: Mohsen Muniz on 01-04-2022 WBC (Bld) [#/Vol] 6.1 10*3/uL 4.5-11.0 [facility] Complete Blood Count Auto Di ffon 01-04-2022 Basophils (Bld) [#/Vol] 0.0 10*3/uL Normal 0.0-0.2 [facility] Comment on above: Result Comment: PERF ORMED BY: [place] [address] PATHOLOGIST MANAGER PHOTOGRAPHY NICHOLE BOLDEN M.D. Performed By: #### D DIMER, BMP, BNP, HS TROP, CKMB, CK, CBC, PTT, PT #### [address] Basophils/100 WBC (Bld) 0.5 % Normal . [facility] Comment on above: Performed By: #### D DIMER, BMP, BNP, HS TROP, CKMB, CK, CBC, PTT, PT #### [address] Eosinophils (Bld) [#/Vol] 0.1 10*3/uL Normal 0.0-0.45 [facility] Comment on above: Performed By: #### D DIMER, BMP, BNP, HS TROP, CKMB, CK, CBC, PTT, PT #### [address] Eosinophils/100 WBC (Bld) 2.3 % Normal . [facility] Comment on above: Performed By: #### D DIMER, BMP, BNP, HS TROP, CKMB, CK, CBC, PTT, PT #### [address] Erythrocyte distribution width (RBC) [Ratio] 13.2 % Normal 12.0-14.8 [facility] Comment on above: Performed By: #### D DIMER, BMP, BNP, HS TROP, CKMB, CK, CBC, PTT, PT #### [address] Hematocrit (Bld) [Volume fraction] 36.2 % Low 38.8-50.0 [facility] Comment on above: Performed By: #### D DIMER, BMP, BNP, HS TROP, CKMB, CK, CBC, PTT, PT #### [address] Hemoglobin (Bld) [Mass/Vol] 12.3 g/dL Low 13.0-17.0 [facility] Comment on above: Performed By: #### D DIMER, BMP, BNP, HS TROP, CKMB, CK, CBC, PTT, PT #### [address] Lymphocytes (Bld) [#/Vol] 0.5 10*3/uL Low 1.00-4.8 [facility] Comment on above: Performed By: #### D DIMER, BMP, BNP, HS TROP, CKMB, CK, CBC, PTT, PT #### [address] Lymphocytes/100 WBC (Bld) 8.6 % Normal . [facility] [place] Comment on above: Performed By: #### D DIMER, BMP, BNP, HS TROP, CKMB, CK, CBC, PTT, PT #### [address] MCH (RBC) [Entitic mass] 32.9 pg Normal 27.5-35.2 [facility] [place] Comment on above: Performed By: #### D DIMER, BMP, BNP, HS TROP, CKMB, CK, CBC, PTT, PT #### [address] MCV (RBC) [Entitic vol] 96.7 fL Normal 83.5-101 F [facility] Comment on above: Performed By: #### D DIMER, BMP, BNP, HS TROP, CKMB, CK, CBC, PTT, PT #### [address] Mean Corpuscular HGB Conc 34.0 g/dL Normal 32.5-35.6 [facility] [place] Comment on above: Performed By: #### D DIMER, BMP, BNP, HS TROP, CKMB, CK, CBC, PTT, PT #### [address] Monocytes (Bld) [#/Vol] 0.8 10*3/uL Normal 0.0-0.8 [facility] [place] Comment on above: Performed By: #### D DIMER, BMP, BNP, HS TROP, CKMB, CK, CBC, PTT, PT #### [facility] [address] Monocytes/100 WBC (Bld) 12.6 % Normal . F [facility] Comment on above: Performed By: #### D DIMER, BMP, BNP, HS TROP, CKMB, CK, CBC, PTT, PT #### [facility] [address] Neutrophils (Bld) [#/Vol] 4.6 10*3/uL Normal 1.8-7.7 [facility] [place] Comment on above: Performed By: #### D DIMER, BMP, BNP, HS TROP, CKMB, CK, CBC, PTT, PT #### [facility] [address] Neutrophils/100 WBC (Bld) 76.0 % Normal . [facility] [place] Comment on above: Performed By: #### D DIMER, BMP, BNP, HS TROP, CKMB, CK, CBC, PTT, PT #### [facility] [address] Nucleated RBC/100 WBC (Bld) [Ratio] 0.0 % Normal 0-0.5 [facility] [place] Comment on above: Performed By: #### D DIMER, BMP, BNP, HS TROP, CKMB, CK, CBC, PTT, PT #### [facility] [address] Platelet mean volume (Bld) [Entitic vol] 10.6 fL High 6.6-10.1 [facility] [place] Comment on above: Performed By: #### D DIMER, BMP, BNP, HS TROP, CKMB, CK, CBC, PTT, PT #### [facility] [address] [place] [address] [place] Platelets (Bld) [#/Vol] 214 10*3/uL Normal 150-450 [facility] [place] Comment on above: Performed By: #### D DIMER, BMP, BNP, HS TROP, CKMB, CK, CBC, PTT, PT #### [place] [address] [place] RBC (Bld) [#/Vol] 3.74 10*6/uL Low 3.90-5.60 [facility] Comment on above: Performed By: #### D DIMER, BMP, BNP, HS TROP, CKMB, CK, CBC, PTT, PT #### [facility] [address] WBC (Bld) [#/Vol] 6.1 10*3/uL Normal 4.5-11.0 [facility] Comment on above: Performed By: #### D DIMER, BMP, BNP, HS TROP, CKMB, CK, CBC, PTT, PT #### [address] Comprehensive Metabolic Pane ritika 01-04-2022 Albumin [Mass/Vol] 3.0 g/dL Low 3.2-5.5 [facility] Comment on above: Order Comment: HEMOL YZED-PLEASE REDRAW. MLG Performed By: #### D DIMER, BMP, BNP, HS TROP, CKMB, CK, CBC, PTT, PT #### [address] Albumin/Globulin [Mass ratio] 0.9 {ratio} Normal [facility] [place] Comment on above: Order Comment: HEMOL YZED-PLEASE REDRAW. MLG Performed By: #### D DIMER, BMP, BNP, HS TROP, CKMB, CK, CBC, PTT, PT #### [address] ALP [Catalytic activity/Vol] 44 U/L Normal 32-92 [facility] [place] Comment on above: Order Comment: HEMOL YZED-PLEASE REDRAW. MLG Performed By: #### D DIMER, BMP, BNP, HS TROP, CKMB, CK, CBC, PTT, PT #### [address] ALT [Catalytic activity/Vol] 11 U/L Normal 10-60 [facility] [place] Comment on above: Order Comment: HEMOL YZED-PLEASE REDRAW. MLG Performed By: #### D DIMER, BMP, BNP, HS TROP, CKMB, CK, CBC, PTT, PT #### [facility] [address] Anion gap [Moles/Vol] 12.2 mmol/L Normal 6.0-15.0 [facility] Comment on above: Order Comment: HEMOL YZED-PLEASE REDRAW. MLG Performed By: #### D DIMER, BMP, BNP, HS TROP, CKMB, CK, CBC, PTT, PT #### [facility] [address] AST [Catalytic activity/Vol] 14 U/L Normal 10-42 [facility] [place] Comment on above: Order Comment: HEMOL YZED-PLEASE REDRAW. MLG Performed By: #### D DIMER, BMP, BNP, HS TROP, CKMB, CK, CBC, PTT, PT #### [facility] [address] Bilirubin [Mass/Vol] 0.9 mg/dL Normal 0.3-1.2 [facility] Comment on above: Order Comment: HEMOL YZED-PLEASE REDRAW. MLG Performed By: #### D DIMER, BMP, BNP, HS TROP, CKMB, CK, CBC, PTT, PT #### [address] Calcium [Mass/Vol] 8.6 mg/dL Normal 8.2-10.2 [facility] Comment on above: Order Comment: HEMOL YZED-PLEASE REDRAW. MLG Performed By: #### D DIMER, BMP, BNP, HS TROP, CKMB, CK, CBC, PTT, PT #### [facility] [address] [place] [id number] [facility] Chloride [Moles/Vol] 94 mmol/L Low 95-114 [facility] Comment on above: Order Comment: HEMOL YZED-PLEASE REDRAW. MLG Performed By: #### D DIMER, BMP, BNP, HS TROP, CKMB, CK, CBC, PTT, PT #### [facility] [address] [place] [id number] [facility] CO2 [Moles/Vol] 28.6 mmol/L Normal 22.0-30.0 [facility] Comment on above: Order Comment: HEMOL YZED-PLEASE REDRAW. MLG Performed By: #### D DIMER, BMP, BNP, HS TROP, CKMB, CK, CBC, PTT, PT #### [address] Creatinine [Mass/Vol] 0.56 mg/dL Low 0.64-1.27 [facility] Comment on above: Order Comment: HEMOL YZED-PLEASE REDRAW. MLG Performed By: #### D DIMER, BMP, BNP, HS TROP, CKMB, CK, CBC, PTT, PT #### [address] Creatinine Clr Calc Pharmacy 62.94 [facility] Comment on above: Order Comment: HEMOL YZED-PLEASE REDRAW. MLG Performed By: #### D DIMER, BMP, BNP, HS TROP, CKMB, CK, CBC, PTT, PT #### [address] Estimated GFR ( [place] > 60 [facility] Comment on above: Order Comment: HEMOL YZED-PLEASE REDRAW. MLG Result Comment: GFR estimated reference range: According to KDOQI guidelines, <60 ml/min/1.73m2 is sufficient to diagnose a patient with chronic kidney disease. Performed By: #### D DIMER, BMP, BNP, HS TROP, CKMB, CK, CBC, PTT, PT #### [address] Estimated GFR (Non- Am > 60 [facility] Comment on above: Order Comment: HEMOL YZED-PLEASE REDRAW. MLG Performed By: #### D DIMER, BMP, BNP, HS TROP, CKMB, CK, CBC, PTT, PT #### [address] Globulin (S) [Mass/Vol] 3.2 g/dL [facility] Comment on above: Order Comment: HEMOL YZED-PLEASE REDRAW. MLG Performed By: #### D DIMER, BMP, BNP, HS TROP, CKMB, CK, CBC, PTT, PT #### [facility] [address] Glucose [Mass/Vol] 124 mg/dL High 70-100 [facility] Comment on above: Order Comment: HEMOL YZED-PLEASE REDRAW. MLG Result Comment: [facility] Glucose Reference Range is dependent on time and content of last meal. Glucose of more than 200 mg/dL in a nonstressed, ambulatory subject supports the diagnosis of Diabetes Mellitus. ADA recommended reference range Performed By: #### D DIMER, BMP, BNP, HS TROP, CKMB, CK, CBC, PTT, PT #### [facility] [address] Potassium [Moles/Vol] 3.8 mmol/L Normal 3.5-5.1 [facility] Comment on above: Order Comment: HEMOL YZED-PLEASE REDRAW. MLG Performed By: #### D DIMER, BMP, BNP, HS TROP, CKMB, CK, CBC, PTT, PT #### [facility] [address] Protein [Mass/Vol] 6.2 g/dL Normal 6.1-7.9 [facility] Comment on above: Order Comment: HEMOL YZED-PLEASE REDRAW. MLG Performed By: #### D DIMER, BMP, BNP, HS TROP, CKMB, CK, CBC, PTT, PT #### [facility] [address] Sodium [Moles/Vol] 131 mmol/L Low 136-146 [facility] Comment on above: Order Comment: HEMOL YZED-PLEASE REDRAW. MLG Performed By: #### D DIMER, BMP, BNP, HS TROP, CKMB, CK, CBC, PTT, PT #### [facility] [address] Urea nitrogen [Mass/Vol] 14 mg/dL Normal 9-23 [facility] [place] Comment on above: Order Comment: HEMOL YZED-PLEASE REDRAW. MLG Performed By: #### D DIMER, BMP, BNP, HS TROP, CKMB, CK, CBC, PTT, PT #### [facility] [address] Creatinine and Glomerular fi ltration rate.predicted panel (S/P/Bld)Ordered By: Mohsen Muniz on 01-04-2022 Creatinine [Mass/Vol] 0.56 mg/dL 0.64-1.27 [facility] Eosinophils Auto (Bld) [#/Vo l]Ordered By: Mohsen Muniz on 01-04-2022 Eosinophils (Bld) [#/Vol] 0.1 10*3/uL 0.0-0.45 [facility] [place] Eosinophils/100 WBC Auto (Bl d)Ordered By: Mohsen Muniz on 01-04-2022 Eosinophils/100 WBC (Bld) 2.3 % . [facility] [place] Erythrocyte distribution wid th Auto (RBC) [Ratio]Ordered By: Mohsen Muniz on 01-04-2022 Erythrocyte distribution width (RBC) [Ratio] 13.2 % 12.0-14.8 [facility] [place] Estimated glomerular filtrat ion rate (GFR) non- AmericanOrdered By: Mohsen Muniz on 01-04-2022 GFR/1.73 sq M.predicted among non-blacks MDRD (S/P/Bld) [Vol rate/Area] > 60 mL/Min [facility] [place] Folate [Mass/volume] in Seru m or PlasmaOrdered By: Mohsen Muniz on 01-04-2022 Folate [Mass/Vol] 15.7 ng/mL >5.9 [facility] Comment on above: Folate reference ran ge: >5.9 ng/ml The WHO technical consultation on folate and vitamin b12 deficiencies has determined that folate concentrations less than 4 ng/ml are considered deficient. Globulin Calc (S) [Mass/Vol] Ordered By: Mohsen Muniz on 01-04-2022 Globulin (S) [Mass/Vol] 3.2 g/dL F [facility] Glucose Poct Glucometerson 0 01-04-2022 Glucose [Mass/Vol] 119 mg/dL Normal [facility] Comment on above: Result Comment: [place] Glucose Reference Range is dependent on time and content of last meal. Glucose of more than 200 mg/dL in a nonstressed, ambulatory subject supports the diagnosis of Diabetes Mellitus. PERFORMED BY: [place] [address] PATHOLOGIST MANAGER PHOTOGRAPHY NICHOLE BOLDEN M.D. Performed By: #### D DIMER, BMP, BNP, HS TROP, CKMB, CK, CBC, PTT, PT #### [facility] [address] [place] [address] [place] Glucose [Mass/Vol] 177 mg/dL Normal [facility] Comment on above: Result Comment: [place] om Glucose Reference Range is dependent on time and content of last meal. Glucose of more than 200 mg/dL in a nonstressed, ambulatory subject supports the diagnosis of Diabetes Mellitus. PERFORMED BY: [address] [place] [address] PATHOLOGIST MANAGER PHOTOGRAPHY NICHOLE BOLDEN M.D. Performed By: #### D DIMER, BMP, BNP, HS TROP, CKMB, CK, CBC, PTT, PT #### [place] [address] [place] Glucose [Mass/Vol] 135 mg/dL Normal [facility] Comment on above: Result Comment: [place] om Glucose Reference Range is dependent on time and content of last meal. Glucose of more than 200 mg/dL in a nonstressed, ambulatory subject supports the diagnosis of Diabetes Mellitus. PERFORMED BY: [address] [place] [address] PATHOLOGIST MANAGER PHOTOGRAPHY NICHOLE BOLDEN M.D. Performed By: #### D DIMER, BMP, BNP, HS TROP, CKMB, CK, CBC, PTT, PT #### [facility] [address] [place] [address] [place] Glucose [Mass/Vol] 121 mg/dL Normal [facility] Comment on above: Result Comment: [place] Glucose Reference Range is dependent on time and content of last meal. Glucose of more than 200 mg/dL in a nonstressed, ambulatory subject supports the diagnosis of Diabetes Mellitus. PERFORMED BY: [address] [address] PATHOLOGIST MANAGER PHOTOGRAPHY NICHOLE BOLDEN M.D. Performed By: #### D DIMER, BMP, BNP, HS TROP, CKMB, CK, CBC, PTT, PT #### [facility] [address] Hematocrit Auto (Bld) [Volum e fraction]Ordered By: Mohsen Muniz on 01-04-2022 Hematocrit (Bld) [Volume fraction] 36.2 % 38.8-50.0 [facility] [place] Laboratory - Chemistry and C hemistry - challengeOrdered By: Mohsen Muniz on 01-04-2022 Cobalamin (Vitamin B12) [Mass/Vol] 89 pg/mL 180-914 [facility] [place] Laboratory - Hematology and Cell countsOrdered By: Mohsenronit Muniz on 01-04-2022 Nucleated RBC/100 WBC (Bld) [Ratio] 0.0 % 0-0.5 [facility] [place] Lymphocytes Auto (Bld) [#/Vo l]Ordered By: Mohsenwarren Muniz on 01-04-2022 Lymphocytes (Bld) [#/Vol] 0.5 10*3/uL 1.00-4.8 [facility] [place] Lymphocytes/100 WBC Auto (Bl d)Ordered By: Mohsen Muniz on 01-04-2022 Lymphocytes/100 WBC (Bld) 8.6 % . [facility] [place] MCH Auto (RBC) [Entitic mass ]Ordered By: Mohsen Muniz on 01-04-2022 MCH (RBC) [Entitic mass] 32.9 pg 27.5-35.2 [facility] [place] MCHC Auto (RBC) [Mass/Vol]Or dered By: Mohsen Muniz on 01-04-2022 MCHC (RBC) [Mass/Vol] 34.0 g/dL 32.5-35.6 [facility] MCV Auto (RBC) [Entitic vol] Ordered By: Mohsen Muniz on 01-04-2022 MCV (RBC) [Entitic vol] 96.7 fL 83.5-101 F [facility] Monocytes Auto (Bld) [#/Vol] Ordered By: Mohsenronit Muniz on 01-04-2022 Monocytes (Bld) [#/Vol] 0.8 10*3/uL 0.0-0.8 [facility] [place] Monocytes/100 WBC Auto (Bld) Ordered By: Mohsen Doscottbaldo on 01-04-2022 Monocytes/100 WBC (Bld) 12.6 % . [facility] Neutrophils Auto (Bld) [#/Vo l]Ordered By: Mohsen Doscottbaldo on 01-04-2022 Neutrophils (Bld) [#/Vol] 4.6 10*3/uL 1.8-7.7 [facility] [place] Neutrophils/100 WBC Auto (Bl d)Ordered By: Mohsenwarren Muniz on 01-04-2022 Neutrophils/100 WBC (Bld) 76.0 % . [facility] [place] No Panel InformationOrdered By: [facility] on 01-04-2022 25-Hydroxy Vitamin D Total 60.5 ng/mL 30-100 [facility] [place] Comment on above: VITAMIN D STATUS 25( [place])VITAMIN D RANGE (ng/mL) Deficient <20 Insufficient 20 to <30 Sufficient 30 to 100 Reference: Madi MF,Luis E NC, Josué MIGUEL, et al. Evaluation,treatment, and prevention of vitamin D deficiency; an Endocrine Society clinical practice guideline. JCEM. 2010; 96(7):1911-30. Estimated GFR () > 60 mL/Min [facility] [place] Comment on above: GFR estimated refere nce range: According to KDOQI guidelines, <60 ml/min/1.73m2 is sufficient to diagnose a patient with chronic kidney disease. Pharmacy Creatinine Clearance (Chem 62.94 [facility] [place] Platelet mean volume Auto (B ld) [Entitic vol]Ordered By: Mohsenronit Muniz on 01-04-2022 Platelet mean volume (Bld) [Entitic vol] 10.6 fL 6.6-10.1 [facility] [place] Platelets Auto (Bld) [#/Vol] Ordered By: Mohsenwarren Mnuiz on 01-04-2022 Platelets (Bld) [#/Vol] 214 10*3/uL 150-450 [facility] [place] Protein [Mass/volume] in Ser um or PlasmaOrdered By: Mohsen Muniz on 01-04-2022 Protein [Mass/Vol] 6.2 g/dL 6.1-7.9 [facility] RBC Auto (Bld) [#/Vol]Ordere d By: Mohsen Muniz on 01-04-2022 RBC (Bld) [#/Vol] 3.74 10*6/uL 3.90-5.60 [facility] Serum or plasma alanine cortez otransferase measurement without P-5'-P (enzymatic activiOrdered By: Mohsen Muniz on 01-04-2022 ALT No additional P-5'-P [Catalytic activity/Vol] 11 U/L 10-60 [facility] Serum or plasma albumin/glob ulin mass ratioOrdered By: Mohsen Muniz on 01-04-2022 Albumin/Globulin [Mass ratio] 0.9 {ratio} [facility] Serum or plasma alkaline suyapa sphatase measurement (enzymatic activity/volume)Ordered By: Mohsen Muniz on 01-04-2022 ALP [Catalytic activity/Vol] 44 U/L 32-92 [facility] [place] Serum or plasma anion gap de terminationOrdered By: Mohsen Muniz on 01-04-2022 Anion gap [Moles/Vol] 12.2 mmol/L 6.0-15.0 [facility] Serum or plasma aspartate am inotransferase measurement (enzymatic activity/volume)Ordered By: Mohsen Muniz on 01-04-2022 AST [Catalytic activity/Vol] 14 U/L 10-42 [facility] [place] Serum or plasma calcium babita urement (mass/volume)Ordered By: Mohsen Muniz on 01-04-2022 Calcium [Mass/Vol] 8.6 mg/dL 8.2-10.2 [facility] Serum or plasma chloride sabrina surement (moles/volume)Ordered By: Mohsen Muniz on 01-04-2022 Chloride [Moles/Vol] 94 mmol/L 95-114 [facility] Serum or plasma glucose babita urement (mass/volume)Ordered By: Mohsen Muniz on 01-04-2022 Glucose [Mass/Vol] 124 mg/dL 70-100 [facility] Comment on above: ADA recommended refe rence range Random Glucose Reference Range is dependent on time and content of last meal. Glucose of more than 200 mg/dL in a nonstressed, ambulatory subject supports the diagnosis of Diabetes Mellitus. Serum or plasma potassium me asurement (moles/volume)Ordered By: Mohsen Muniz on 01-04-2022 Potassium [Moles/Vol] 3.8 mmol/L 3.5-5.1 [facility] Serum or plasma sodium measu rement (moles/volume)Ordered By: Mohsen Muniz on 01-04-2022 Sodium [Moles/Vol] 131 mmol/L 136-146 [facility] Serum or plasma total biliru bin measurement (mass/volume)Ordered By: Mohsen Muniz on 01-04-2022 Bilirubin [Mass/Vol] 0.9 mg/dL 0.3-1.2 [facility] Serum or plasma total carbon dioxide measurement (moles/volume)Ordered By: Mohsen Muniz on 01-04-2022 CO2 [Moles/Vol] 28.6 mmol/L 22.0-30.0 [facility] Serum or plasma urea nitroge n measurement (mass/volume)Ordered By: Mohsen Muniz on 01-04-2022 Urea nitrogen [Mass/Vol] 14 mg/dL 9-23 [facility] TSH DL <= 0.005 mIU/L QnOrde red By: Mohsen Muniz on 01-04-2022 TSH Qn 2.07 m[IU]/L 0.45-5.33 [facility] Thyroid Stim Hormone w/Rflxo n 01-04-2022 Thyroid Stim Hormone w/Rflx 2.07 u[iU]/mL Normal 0.45-5.33 [facility] [place] Comment on above: Order Comment: HEMOL YZED-PLEASE REDRAW. MLG Performed By: #### D DIMER, BMP, BNP, HS TROP, CKMB, CK, CBC, PTT, PT #### [facility] [address] Vit. B12/Folate Profileon Cobalamin (Vitamin B12) [Mass/Vol] 89 pg/mL Low 180-914 [facility] [place] Comment on above: Order Comment: HEMOL YZED-PLEASE REDRAW. MLG Performed By: #### D DIMER, BMP, BNP, HS TROP, CKMB, CK, CBC, PTT, PT #### [facility] [address] Folate 15.7 ng/mL Normal >5.9 [facility] [place] Comment on above: Order Comment: HEMOL YZED-PLEASE REDRAW. MLG Result Comment: [place] [facility] reference range: >5.9 ng/ml The WHO technical consultation on folate and vitamin b12 deficiencies has determined that folate concentrations less than 4 ng/ml are considered deficient. Performed By: #### D DIMER, BMP, BNP, HS TROP, CKMB, CK, CBC, PTT, PT #### [place] [id number] [facility] Vitamin D 25 Hydroxy Totalon 01-04-2022 Vitamin D 25 Hydroxy Total 60.5 ng/mL Normal 30-100 [facility] [place] Comment on above: Order Comment: HEMOL YZED-PLEASE REDRAW. MLG Result Comment: [place] MIN D STATUS 25(OH)VITAMIN D RANGE (ng/mL) Deficient <20 Insufficient 20 to <30 Sufficient 30 to 100 Reference: Madi MF,Luis E NC, Josué MIGUEL, et al. Evaluation,treatment, and prevention of vitamin D deficiency; an Endocrine Society clinical practice guideline. JCEM. 2010; 96(7):1911-30. PERFORMED BY: [place] [address] PATHOLOGIST MANAGER PHOTOGRAPHY NICHOLE BOLDEN M.D. Performed By: #### D DIMER, BMP, BNP, HS TROP, CKMB, CK, CBC, PTT, PT #### [address] ECG 12 lead ECGon 01-03-2022 ECG 12 lead ECG [facility] [place] [address] [place] [address] Electrocardiograph Report Signed Patient: Esa Leavitt MR#: [id number] 623 : 1935 Acct:[id number] Age/Sex: 86 / M ADM Date: 01/01/22 Loc: 3T Room: [address] [place] [address] Type: DIS IN Attending Dr: Mohsen Muniz [...] Signed By Brooks Landaverde DO 01/03 Normal [facility] Glucose Poct Glucometerson 0 01-03-2022 Commemt1 Glu2: Cleaned Meter Normal [facility] Comment on above: Result Comment: PERF ORMED BY: [place] [address] PATHOLOGIST MANAGER PHOTOGRAPHY NICHOLE BOLDEN M.D. Performed By: #### D DIMER, BMP, BNP, HS TROP, CKMB, CK, CBC, PTT, PT #### [facility] [address] [place] [address] [place] Glucose [Mass/Vol] 162 mg/dL Normal [facility] Comment on above: Result Comment: [facility] Glucose Reference Range is dependent on time and content of last meal. Glucose of more than 200 mg/dL in a nonstressed, ambulatory subject supports the diagnosis of Diabetes Mellitus. PERFORMED BY: [address] [address] PATHOLOGIST MANAGER PHOTOGRAPHY NICHOLE BOLDEN M.D. Performed By: #### D DIMER, BMP, BNP, HS TROP, CKMB, CK, CBC, PTT, PT #### [address] Glucose [Mass/Vol] 113 mg/dL Normal [facility] Comment on above: Result Comment: [place] om Glucose Reference Range is dependent on time and content of last meal. Glucose of more than 200 mg/dL in a nonstressed, ambulatory subject supports the diagnosis of Diabetes Mellitus. PERFORMED BY: [place] [address] PATHOLOGIST MANAGER PHOTOGRAPHY NICHOLE BOLDEN M.D. Performed By: #### D DIMER, BMP, BNP, HS TROP, CKMB, CK, CBC, PTT, PT #### [address] Glucose [Mass/Vol] 139 mg/dL Normal [facility] Comment on above: Result Comment: [place] om Glucose Reference Range is dependent on time and content of last meal. Glucose of more than 200 mg/dL in a nonstressed, ambulatory subject supports the diagnosis of Diabetes Mellitus. Performed By: #### D DIMER, BMP, BNP, HS TROP, CKMB, CK, CBC, PTT, PT #### [address] Glucose [Mass/Vol] 241 mg/dL Normal [facility] Comment on above: Result Comment: [place] om Glucose Reference Range is dependent on time and content of last meal. Glucose of more than 200 mg/dL in a nonstressed, ambulatory subject supports the diagnosis of Diabetes Mellitus. PERFORMED BY: [place] [address] PATHOLOGIST MANAGER PHOTOGRAPHY NICHOLE BOLDEN M.D. Performed By: #### D DIMER, BMP, BNP, HS TROP, CKMB, CK, CBC, PTT, PT #### [place] [id number] [facility] NM ed perf SPECT rest stron 01-03-2022 NM ed perf SPECT rest str [facility] [address] [place] [id number] Nuclear Medicine Report Signed Patient: Esa Leavitt MR#: [id number] 623 : 1935 Acct:[id number] Age/Sex: 86 / M ADM Date: 01/01/22 Loc: Room: [address] [place] [address] Type: ADM IN Attending Dr: Mohsen Muniz MD Copies to: MD Demetra Gonzalez MD, [facility] Anderson Ambrosio MD Ordering Provider: Anderson [...] By: NTS 01/03/22 1426 Dictated By: Demetra Downey MD, [facility] 01/03/22 1412 Signed By: 01/04/22 1404 Normal [facility] STR cardiac stress/lexiscano n 01-03-2022 STR cardiac stress/lexiscan [address] [address] Cardiac Stress Test Signed Patient: Esa Leavitt MR#: [id number] 623 : 1935 Acct:[id number] Age/Sex: 86 / M ADM Date: 01/01/22 Loc: Room: [address] [place] [address] Type: DIS IN Attending Dr: Mohsen Muniz MD Copies to: Demetra Downey MD, [facility] Anderson Ambrosio MD Ordering Provider: Anderson [...] 01/03/22 1442 Dictated By: Demetra Downey MD, [facility] 01/03/22 1404 Signed By: 01/04/22 1404 Normal [facility] Basic Metabolic Panelon 12-07 Calcium [Mass/Vol] 8.7 mg/dL Normal 8.2-10.2 [facility] Comment on above: Performed By: #### D DIMER, BMP, BNP, HS TROP, CKMB, CK, CBC, PTT, PT #### [facility] [address] [place] [address] [place] Chloride [Moles/Vol] 93 mmol/L Low 95-114 [facility] Comment on above: Performed By: #### D DIMER, BMP, BNP, HS TROP, CKMB, CK, CBC, PTT, PT #### [facility] [address] [place] [address] [place] CO2 [Moles/Vol] 28.8 mmol/L Normal 22.0-30.0 [facility] Comment on above: Performed By: #### D DIMER, BMP, BNP, HS TROP, CKMB, CK, CBC, PTT, PT #### [facility] [address] [place] [address] [place] Creatinine [Mass/Vol] 0.61 mg/dL Low 0.64-1.27 [facility] Comment on above: Performed By: #### D DIMER, BMP, BNP, HS TROP, CKMB, CK, CBC, PTT, PT #### [facility] [address] Creatinine Clr Calc Pharmacy 62.94 [facility] Comment on above: Result Comment: PERF ORMED BY: [place] [address] PATHOLOGIST MANAGER PHOTOGRAPHY NICHOLE BOLDEN M.D. Performed By: #### D DIMER, BMP, BNP, HS TROP, CKMB, CK, CBC, PTT, PT #### [address] Estimated GFR ( [place] > 60 [facility] Comment on above: Result Comment: GFR estimated reference range: According to KDOQI guidelines, <60 ml/min/1.73m2 is sufficient to diagnose a patient with chronic kidney disease. Performed By: #### D DIMER, BMP, BNP, HS TROP, CKMB, CK, CBC, PTT, PT #### [address] Estimated GFR (Non- Am > 60 [facility] Comment on above: Performed By: #### D DIMER, BMP, BNP, HS TROP, CKMB, CK, CBC, PTT, PT #### [address] Glucose [Mass/Vol] 124 mg/dL High 70-100 [facility] Comment on above: Result Comment: [facility] Glucose Reference Range is dependent on time and content of last meal. Glucose of more than 200 mg/dL in a nonstressed, ambulatory subject supports the diagnosis of Diabetes Mellitus. ADA recommended reference range Performed By: #### D DIMER, BMP, BNP, HS TROP, CKMB, CK, CBC, PTT, PT #### [address] Potassium [Moles/Vol] 3.9 mmol/L Normal 3.5-5.1 [facility] Comment on above: Performed By: #### D DIMER, BMP, BNP, HS TROP, CKMB, CK, CBC, PTT, PT #### [address] Sodium [Moles/Vol] 130 mmol/L Low 136-146 [facility] Comment on above: Performed By: #### D DIMER, BMP, BNP, HS TROP, CKMB, CK, CBC, PTT, PT #### [address] Urea nitrogen [Mass/Vol] 18 mg/dL Normal 9-23 [facility] Comment on above: Performed By: #### D DIMER, BMP, BNP, HS TROP, CKMB, CK, CBC, PTT, PT #### [address] Complete Blood Count Auto Di ffon 01-02-2022 Basophils (Bld) [#/Vol] 0.1 10*3/uL Normal 0.0-0.2 [facility] Comment on above: Result Comment: PERF ORMED BY: [place] [address] PATHOLOGIST MANAGER PHOTOGRAPHY NICHOLE BOLDEN M.D. Performed By: #### D DIMER, BMP, BNP, HS TROP, CKMB, CK, CBC, PTT, PT #### [address] Basophils/100 WBC (Bld) 0.6 % Normal . [facility] Comment on above: Performed By: #### D DIMER, BMP, BNP, HS TROP, CKMB, CK, CBC, PTT, PT #### [address] Eosinophils (Bld) [#/Vol] 0.0 10*3/uL Normal 0.0-0.45 [facility] Comment on above: Performed By: #### D DIMER, BMP, BNP, HS TROP, CKMB, CK, CBC, PTT, PT #### [address] Eosinophils/100 WBC (Bld) 0.3 % Normal . [facility] Comment on above: Performed By: #### D DIMER, BMP, BNP, HS TROP, CKMB, CK, CBC, PTT, PT #### [address] Erythrocyte distribution width (RBC) [Ratio] 13.6 % Normal 12.0-14.8 [facility] Comment on above: Performed By: #### D DIMER, BMP, BNP, HS TROP, CKMB, CK, CBC, PTT, PT #### [address] Hematocrit (Bld) [Volume fraction] 36.6 % Low 38.8-50.0 [facility] Comment on above: Performed By: #### D DIMER, BMP, BNP, HS TROP, CKMB, CK, CBC, PTT, PT #### [address] Hemoglobin (Bld) [Mass/Vol] 12.4 g/dL Low 13.0-17.0 [facility] Comment on above: Performed By: #### D DIMER, BMP, BNP, HS TROP, CKMB, CK, CBC, PTT, PT #### [address] Lymphocytes (Bld) [#/Vol] 0.8 10*3/uL Low 1.00-4.8 [facility] Comment on above: Performed By: #### D DIMER, BMP, BNP, HS TROP, CKMB, CK, CBC, PTT, PT #### [address] Lymphocytes/100 WBC (Bld) 9.0 % Normal . [facility] Comment on above: Performed By: #### D DIMER, BMP, BNP, HS TROP, CKMB, CK, CBC, PTT, PT #### [address] MCH (RBC) [Entitic mass] 32.8 pg Normal 27.5-35.2 [facility] Comment on above: Performed By: #### D DIMER, BMP, BNP, HS TROP, CKMB, CK, CBC, PTT, PT #### [facility] [address] MCV (RBC) [Entitic vol] 97.0 fL Normal 83.5-101 F [facility] Comment on above: Performed By: #### D DIMER, BMP, BNP, HS TROP, CKMB, CK, CBC, PTT, PT #### [address] Mean Corpuscular HGB Conc 33.8 g/dL Normal 32.5-35.6 [facility] Comment on above: Performed By: #### D DIMER, BMP, BNP, HS TROP, CKMB, CK, CBC, PTT, PT #### [address] Monocytes (Bld) [#/Vol] 1.0 10*3/uL High 0.0-0.8 [facility] Comment on above: Performed By: #### D DIMER, BMP, BNP, HS TROP, CKMB, CK, CBC, PTT, PT #### [address] Monocytes/100 WBC (Bld) 11.1 % Normal . F [facility] Comment on above: Performed By: #### D DIMER, BMP, BNP, HS TROP, CKMB, CK, CBC, PTT, PT #### [address] Neutrophils (Bld) [#/Vol] 7.4 10*3/uL Normal 1.8-7.7 [facility] Comment on above: Performed By: #### D DIMER, BMP, BNP, HS TROP, CKMB, CK, CBC, PTT, PT #### [address] Neutrophils/100 WBC (Bld) 79.0 % Normal . [facility] Comment on above: Performed By: #### D DIMER, BMP, BNP, HS TROP, CKMB, CK, CBC, PTT, PT #### [place] [address] [place] Nucleated RBC/100 WBC (Bld) [Ratio] 0.0 % Normal 0-0.5 [facility] Comment on above: Performed By: #### D DIMER, BMP, BNP, HS TROP, CKMB, CK, CBC, PTT, PT #### [address] Platelet mean volume (Bld) [Entitic vol] 9.9 fL Normal 6.6-10.1 [facility] Comment on above: Performed By: #### D DIMER, BMP, BNP, HS TROP, CKMB, CK, CBC, PTT, PT #### [address] Platelets (Bld) [#/Vol] 200 10*3/uL Normal 150-450 [facility] Comment on above: Performed By: #### D DIMER, BMP, BNP, HS TROP, CKMB, CK, CBC, PTT, PT #### [address] RBC (Bld) [#/Vol] 3.77 10*6/uL Low 3.90-5.60 [facility] Comment on above: Performed By: #### D DIMER, BMP, BNP, HS TROP, CKMB, CK, CBC, PTT, PT #### [address] WBC (Bld) [#/Vol] 9.4 10*3/uL Normal 4.5-11.0 [facility] Comment on above: Performed By: #### D DIMER, BMP, BNP, HS TROP, CKMB, CK, CBC, PTT, PT #### [address] ECG 12 lead ECGon 01-02-2022 ECG 12 lead ECG [facility] [place] [address] [place] [address] Electrocardiograph Report Signed Patient: Esa Leavitt MR#: [id number] : 1935 Acct:[id number] Age/Sex: 86 / M ADM Date: 01/01/22 Loc: Room: [address] [place] [address] Type: DIS IN Attending Dr: Mohsen Muniz MD Ordering Provider: Demetra Downey MD, [facility] Date of Service: 01/02/22 ECG/ECG 12 [...] AV dissociation rhythm Confirmed by NASREEN JOHNS [facility], DEMETRA ([id number]) on 01/03/2022 1:16:00 PM Referred By: Electronically Signed By:DEMETRA DOWNEY MD [facility] Transcribed By: MUS Signed By Demetra Downey MD, [facility] 01/03/22 1316 Normal [facility] Glucose Poct Glucometerson 0 01-02-2022 Commemt1 Glu2: Cleaned Meter [facility] Comment on above: Result Comment: PERF ORMED BY: [place] [address] PATHOLOGIST MANAGER PHOTOGRAPHY NICHOLE BOLDEN M.D. Performed By: #### D DIMER, BMP, BNP, HS TROP, CKMB, CK, CBC, PTT, PT #### [facility] [address] [place] [address] Commemt1 Glu2: Cleaned Meter [facility] Comment on above: Result Comment: PERF ORMED BY: [place] [address] PATHOLOGIST MANAGER PHOTOGRAPHY NICHOLE BOLDEN M.D. Performed By: #### D DIMER, BMP, BNP, HS TROP, CKMB, CK, CBC, PTT, PT #### [facility] [address] [place], [place] [id number] [place] Glucose [Mass/Vol] 129 mg/dL [facility] Comment on above: Result Comment: [place] om Glucose Reference Range is dependent on time and content of last meal. Glucose of more than 200 mg/dL in a nonstressed, ambulatory subject supports the diagnosis of Diabetes Mellitus. PERFORMED BY: [place] [address] PATHOLOGIST MANAGER PHOTOGRAPHY NICHOLE BOLDEN M.D. Performed By: #### D DIMER, BMP, BNP, HS TROP, CKMB, CK, CBC, PTT, PT #### [address] Glucose [Mass/Vol] 144 mg/dL Normal [facility] Comment on above: Result Comment: [place] om Glucose Reference Range is dependent on time and content of last meal. Glucose of more than 200 mg/dL in a nonstressed, ambulatory subject supports the diagnosis of Diabetes Mellitus. Performed By: #### D DIMER, BMP, BNP, HS TROP, CKMB, CK, CBC, PTT, PT #### [address] Glucose [Mass/Vol] 142 mg/dL Normal [facility] Comment on above: Result Comment: [place] om Glucose Reference Range is dependent on time and content of last meal. Glucose of more than 200 mg/dL in a nonstressed, ambulatory subject supports the diagnosis of Diabetes Mellitus. Performed By: #### D DIMER, BMP, BNP, HS TROP, CKMB, CK, CBC, PTT, PT #### [address] Glucose [Mass/Vol] 134 mg/dL Normal [facility] Comment on above: Result Comment: [place] om Glucose Reference Range is dependent on time and content of last meal. Glucose of more than 200 mg/dL in a nonstressed, ambulatory subject supports the diagnosis of Diabetes Mellitus. PERFORMED BY: [place] [address] PATHOLOGIST MANAGER PHOTOGRAPHY NICHOLE BOLDEN M.D. Performed By: #### D DIMER, BMP, BNP, HS TROP, CKMB, CK, CBC, PTT, PT #### [address] Automated erythrocytes count in urine sediment (number/area)Ordered By: Ronit Caruso on 01-01-2022 RBC Auto (Urine sed) [#/Area] 0-1 [HPF] 0-4 [facility] Automated leukocytes count i n urine sediment (number/area)Ordered By: Ronit Caruso on 01-01-2022 WBC Auto (Urine sed) [#/Area] None seen [HPF] 0-4 [facility] B-Type Natriuretic Peptideon 01-01-2022 Natriuretic peptide B (Bld) [Mass/Vol] 157.0 pg/mL High 5-100 [facility] Comment on above: Result Comment: PERF ORMED BY: [place] [address] PATHOLOGIST MANAGER PHOTOGRAPHY NICHOLE BOLDEN M.D. Performed By: #### D DIMER, BMP, BNP, HS TROP, CKMB, CK, CBC, PTT, PT #### [address] Basic Metabolic Panelon 12-07 Calcium [Mass/Vol] 9.0 mg/dL Normal 8.2-10.2 [facility] Comment on above: Result Comment: PERF ORMED BY: [place] [address] PATHOLOGIST MANAGER PHOTOGRAPHY NICHOLE BOLDEN M.D. Performed By: #### D DIMER, BMP, BNP, HS TROP, CKMB, CK, CBC, PTT, PT #### [address] Chloride [Moles/Vol] 92 mmol/L Low 95-114 [facility] Comment on above: Performed By: #### D DIMER, BMP, BNP, HS TROP, CKMB, CK, CBC, PTT, PT #### [address] CO2 [Moles/Vol] 23.3 mmol/L Normal 22.0-30.0 [facility] Comment on above: Performed By: #### D DIMER, BMP, BNP, HS TROP, CKMB, CK, CBC, PTT, PT #### [facility] [address] Creatinine [Mass/Vol] 0.59 mg/dL Low 0.64-1.27 [facility] Comment on above: Performed By: #### D DIMER, BMP, BNP, HS TROP, CKMB, CK, CBC, PTT, PT #### [facility] [address] Estimated GFR ( [place] > 60 Normal [facility] Comment on above: Result Comment: GFR estimated reference range: According to KDOQI guidelines, <60 ml/min/1.73m2 is sufficient to diagnose a patient with chronic kidney disease. Performed By: #### D DIMER, BMP, BNP, HS TROP, CKMB, CK, CBC, PTT, PT #### [facility] [address] Estimated GFR (Non- Am > 60 [facility] Comment on above: Performed By: #### D DIMER, BMP, BNP, HS TROP, CKMB, CK, CBC, PTT, PT #### [facility] [address] [place] [address] [place] Glucose [Mass/Vol] 194 mg/dL High 70-100 [facility] Comment on above: Result Comment: [place] Glucose Reference Range is dependent on time and content of last meal. Glucose of more than 200 mg/dL in a nonstressed, ambulatory subject supports the diagnosis of Diabetes Mellitus. ADA recommended reference range Performed By: #### D DIMER, BMP, BNP, HS TROP, CKMB, CK, CBC, PTT, PT #### [facility] [address] Potassium [Moles/Vol] 3.5 mmol/L Normal 3.5-5.1 [facility] Comment on above: Performed By: #### D DIMER, BMP, BNP, HS TROP, CKMB, CK, CBC, PTT, PT #### [facility] [address] Sodium [Moles/Vol] 133 mmol/L Low 136-146 [facility] Comment on above: Performed By: #### D DIMER, BMP, BNP, HS TROP, CKMB, CK, CBC, PTT, PT #### [facility] [address] Urea nitrogen [Mass/Vol] 15 mg/dL Normal 9- [facility] Comment on above: Performed By: #### D DIMER, BMP, BNP, HS TROP, CKMB, CK, CBC, PTT, PT #### [facility] [address] Bilirubin Test strip Ql (U)O rdered By: Ronit Caruso on 01-01-2022 Bilirubin Ql (U) Negative Negative [facility] Blood Cultureon 01-01-2022 Bacteria identified Cx Nom (Bld) NO GROWTH 5 DAYS PERFORMED BY: [place] [address] PATHOLOGIST MANAGER PHOTOGRAPHY NICHOLE BOLDEN M.D. [facility] Comment on above: Performed By: #### D DIMER, BMP, BNP, HS TROP, CKMB, CK, CBC, PTT, PT #### [facility] [address] COVID-19 Antigenon 2 COVID-19 Antigen Healthcare [...] developed and its performance characteristic determined by [employer] and validated at [facility]. This test has not been FDA cleared [...] for SARS Antigen by GEREMIAS PERFORMED BY: [place] [address] PATHOLOGIST MANAGER PHOTOGRAPHY NICHOLE BOLDEN M.D. Normal [facility] Comment on above: Performed By: #### D DIMER, BMP, BNP, HS TROP, CKMB, CK, CBC, PTT, PT #### [address] COVID-19 [facility] 01-01-2022 SARS-CoV-2 (COVID-19) RNA JEFF+probe Ql (Unsp spec) Negative Normal Negative [facility] Comment on above: Order Comment: Healt hcare Worker?: N Result Comment: Testing for SARS-CoV-2 by RT-PCR This test was developed and its performance characteristics determined by [employer] and validated at the [facility]. This test has not been FDA cleared [...] is terminated or revoked sooner. PERFORMED BY: [place] [address] PATHOLOGIST MANAGER PHOTOGRAPHY NICHOLE BOLDEN M.D. Performed By: #### D DIMER, BMP, BNP, HS TROP, CKMB, CK, CBC, PTT, PT #### [place] [id number] [facility] CT chest w conon 01-01-2022 CT chest w con [facility] [place] [address] [place] [address] CT Scan Report Signed Patient: Esa Leavitt MR#: [id number] 623 : 1935 Acct:[id number] Age/Sex: 86 / M ADM Date: 01/01/22 Loc: Room: [address] [place] [address] Type: ADM IN Attending Dr: Ronit Caruso [...] Brooks Easley M.D.01/01/2022 6:24 PM Dictation Location: [place] [address] Transcribed By: [facility] 01/01/221823 Dictated By: Brooks Easley DO 01/01/221816 Signed By: 01/01/221823 Normal [facility] Color Auto (U)Ordered By: Kyle Caruso on 01-01-2022 Color (U) [place] Yellow [facility] Complete Blood Count Auto Di ffon 01-01-2022 Basophils (Bld) [#/Vol] 0.0 10*3/uL Normal 0.0-0.2 [facility] Comment on above: Result Comment: PERF ORMED BY: [place] [address] PATHOLOGIST MANAGER PHOTOGRAPHY NICHOLE BOLDEN M.D. Performed By: #### D DIMER, BMP, BNP, HS TROP, CKMB, CK, CBC, PTT, PT #### [address] Basophils (Bld) [#/Vol] 0.0 10*3/uL Normal 0.0-0.2 [facility] Comment on above: Result Comment: PERF ORMED BY: [facility] [address] [place] [address] PATHOLOGIST MANAGER PHOTOGRAPHY NICHOLE BOLDEN M.D. Performed By: #### D DIMER, BMP, BNP, HS TROP, CKMB, CK, CBC, PTT, PT #### [facility] [address] Basophils/100 WBC (Bld) 0.3 % Normal . [facility] Comment on above: Performed By: #### D DIMER, BMP, BNP, HS TROP, CKMB, CK, CBC, PTT, PT #### [facility] [address] [place] [address] [place] Basophils/100 WBC (Bld) 0.2 % Normal . [facility] Comment on above: Performed By: #### D DIMER, BMP, BNP, HS TROP, CKMB, CK, CBC, PTT, PT #### [facility] [address] [place] [address] [place] Eosinophils (Bld) [#/Vol] 0.0 10*3/uL Normal 0.0-0.45 [facility] Comment on above: Performed By: #### D DIMER, BMP, BNP, HS TROP, CKMB, CK, CBC, PTT, PT #### [facility] [address] [place] [address] [place] Eosinophils (Bld) [#/Vol] 0.0 10*3/uL Normal 0.0-0.45 [facility] Comment on above: Performed By: #### D DIMER, BMP, BNP, HS TROP, CKMB, CK, CBC, PTT, PT #### [place] [address] [place] Eosinophils/100 WBC (Bld) 0.2 % Normal . [facility] Comment on above: Performed By: #### D DIMER, BMP, BNP, HS TROP, CKMB, CK, CBC, PTT, PT #### [place] [address] [place] Eosinophils/100 WBC (Bld) 0.0 % Normal . [facility] Comment on above: Performed By: #### D DIMER, BMP, BNP, HS TROP, CKMB, CK, CBC, PTT, PT #### [place] [address] [place] Erythrocyte distribution width (RBC) [Ratio] 13.3 % Normal 12.0-14.8 [facility] Comment on above: Performed By: #### D DIMER, BMP, BNP, HS TROP, CKMB, CK, CBC, PTT, PT #### [address] Erythrocyte distribution width (RBC) [Ratio] 13.4 % Normal 12.0-14.8 [facility] Comment on above: Performed By: #### D DIMER, BMP, BNP, HS TROP, CKMB, CK, CBC, PTT, PT #### [address] Hematocrit (Bld) [Volume fraction] 38.5 % Low 38.8-50.0 [facility] Comment on above: Performed By: #### D DIMER, BMP, BNP, HS TROP, CKMB, CK, CBC, PTT, PT #### [address] Hematocrit (Bld) [Volume fraction] 37.4 % Low 38.8-50.0 [facility] Comment on above: Performed By: #### D DIMER, BMP, BNP, HS TROP, CKMB, CK, CBC, PTT, PT #### [address] Hemoglobin (Bld) [Mass/Vol] 12.7 g/dL Low 13.0-17.0 [facility] Comment on above: Performed By: #### D DIMER, BMP, BNP, HS TROP, CKMB, CK, CBC, PTT, PT #### [address] Hemoglobin (Bld) [Mass/Vol] 12.5 g/dL Low 13.0-17.0 [facility] Comment on above: Performed By: #### D DIMER, BMP, BNP, HS TROP, CKMB, CK, CBC, PTT, PT #### [address] Lymphocytes (Bld) [#/Vol] 0.6 10*3/uL Low 1.00-4.8 [facility] Comment on above: Performed By: #### D DIMER, BMP, BNP, HS TROP, CKMB, CK, CBC, PTT, PT #### [address] Lymphocytes (Bld) [#/Vol] 0.6 10*3/uL Low 1.00-4.8 [facility] Comment on above: Performed By: #### D DIMER, BMP, BNP, HS TROP, CKMB, CK, CBC, PTT, PT #### [address] Lymphocytes/100 WBC (Bld) 4.3 % Normal . [facility] Comment on above: Performed By: #### D DIMER, BMP, BNP, HS TROP, CKMB, CK, CBC, PTT, PT #### [address] Lymphocytes/100 WBC (Bld) 3.7 % Normal . [facility] Comment on above: Performed By: #### D DIMER, BMP, BNP, HS TROP, CKMB, CK, CBC, PTT, PT #### [address] MCH (RBC) [Entitic mass] 32.0 pg Normal 27.5-35.2 [facility] Comment on above: Performed By: #### D DIMER, BMP, BNP, HS TROP, CKMB, CK, CBC, PTT, PT #### [address] MCH (RBC) [Entitic mass] 32.3 pg Normal 27.5-35.2 [facility] Comment on above: Performed By: #### D DIMER, BMP, BNP, HS TROP, CKMB, CK, CBC, PTT, PT #### [address] MCV (RBC) [Entitic vol] 97.4 fL Normal 83.5-101 F [facility] Comment on above: Performed By: #### D DIMER, BMP, BNP, HS TROP, CKMB, CK, CBC, PTT, PT #### [address] MCV (RBC) [Entitic vol] 97.1 fL Normal 83.5-101 F [facility] Comment on above: Performed By: #### D DIMER, BMP, BNP, HS TROP, CKMB, CK, CBC, PTT, PT #### [address] Mean Corpuscular HGB Conc 32.9 g/dL Normal 32.5-35.6 [facility] Comment on above: Performed By: #### D DIMER, BMP, BNP, HS TROP, CKMB, CK, CBC, PTT, PT #### [address] Mean Corpuscular HGB Conc 33.3 g/dL Normal 32.5-35.6 [facility] Comment on above: Performed By: #### D DIMER, BMP, BNP, HS TROP, CKMB, CK, CBC, PTT, PT #### [address] Monocytes (Bld) [#/Vol] 0.9 10*3/uL High 0.0-0.8 [facility] Comment on above: Performed By: #### D DIMER, BMP, BNP, HS TROP, CKMB, CK, CBC, PTT, PT #### [address] Monocytes (Bld) [#/Vol] 1.5 10*3/uL High 0.0-0.8 [facility] Comment on above: Performed By: #### D DIMER, BMP, BNP, HS TROP, CKMB, CK, CBC, PTT, PT #### [address] Monocytes/100 WBC (Bld) 6.6 % Normal . [facility] Comment on above: Performed By: #### D DIMER, BMP, BNP, HS TROP, CKMB, CK, CBC, PTT, PT #### [address] Monocytes/100 WBC (Bld) 9.3 % Normal . [facility] Comment on above: Performed By: #### D DIMER, BMP, BNP, HS TROP, CKMB, CK, CBC, PTT, PT #### [address] Neutrophils (Bld) [#/Vol] 12.3 10*3/uL High 1.8-7.7 [facility] Comment on above: Performed By: #### D DIMER, BMP, BNP, HS TROP, CKMB, CK, CBC, PTT, PT #### [place] [address] [place] Neutrophils (Bld) [#/Vol] 13.8 10*3/uL High 1.8-7.7 [facility] Comment on above: Performed By: #### D DIMER, BMP, BNP, HS TROP, CKMB, CK, CBC, PTT, PT #### [address] Neutrophils/100 WBC (Bld) 88.6 % Normal . [facility] Comment on above: Performed By: #### D DIMER, BMP, BNP, HS TROP, CKMB, CK, CBC, PTT, PT #### [address] Neutrophils/100 WBC (Bld) 86.8 % Normal . [facility] Comment on above: Performed By: #### D DIMER, BMP, BNP, HS TROP, CKMB, CK, CBC, PTT, PT #### [address] Nucleated RBC/100 WBC (Bld) [Ratio] 0.1 % Normal 0-0.5 [facility] Comment on above: Performed By: #### D DIMER, BMP, BNP, HS TROP, CKMB, CK, CBC, PTT, PT #### [address] Nucleated RBC/100 WBC (Bld) [Ratio] 0.0 % Normal 0-0.5 [facility] Comment on above: Performed By: #### D DIMER, BMP, BNP, HS TROP, CKMB, CK, CBC, PTT, PT #### [address] Platelet mean volume (Bld) [Entitic vol] 8.7 fL Normal 6.6-10.1 [facility] Comment on above: Performed By: #### D DIMER, BMP, BNP, HS TROP, CKMB, CK, CBC, PTT, PT #### [address] Platelet mean volume (Bld) [Entitic vol] 9.7 fL Normal 6.6-10.1 [facility] Comment on above: Performed By: #### D DIMER, BMP, BNP, HS TROP, CKMB, CK, CBC, PTT, PT #### [facility] [address] Platelets (Bld) [#/Vol] 254 10*3/uL Normal 150-450 [facility] Comment on above: Performed By: #### D DIMER, BMP, BNP, HS TROP, CKMB, CK, CBC, PTT, PT #### [facility] [address] Platelets (Bld) [#/Vol] 228 10*3/uL Normal 150-450 [facility] Comment on above: Performed By: #### D DIMER, BMP, BNP, HS TROP, CKMB, CK, CBC, PTT, PT #### [address] RBC (Bld) [#/Vol] 3.96 10*6/uL Normal 3.90-5.60 [facility] Comment on above: Performed By: #### D DIMER, BMP, BNP, HS TROP, CKMB, CK, CBC, PTT, PT #### [address] RBC (Bld) [#/Vol] 3.86 10*6/uL Low 3.90-5.60 [facility] Comment on above: Performed By: #### D DIMER, BMP, BNP, HS TROP, CKMB, CK, CBC, PTT, PT #### [address] WBC (Bld) [#/Vol] 13.8 10*3/uL High 4.5-11.0 [facility] Comment on above: Performed By: #### D DIMER, BMP, BNP, HS TROP, CKMB, CK, CBC, PTT, PT #### [address] WBC (Bld) [#/Vol] 15.9 10*3/uL High 4.5-11.0 [facility] Comment on above: Performed By: #### D DIMER, BMP, BNP, HS TROP, CKMB, CK, CBC, PTT, PT #### [address] Comprehensive Metabolic Pane ritika 01-01-2022 Albumin [Mass/Vol] 3.4 g/dL Normal 3.2-5.5 [facility] Comment on above: Performed By: #### D DIMER, BMP, BNP, HS TROP, CKMB, CK, CBC, PTT, PT #### [address] Albumin/Globulin [Mass ratio] 1.2 {ratio} Normal [facility] Comment on above: Performed By: #### D DIMER, BMP, BNP, HS TROP, CKMB, CK, CBC, PTT, PT #### [address] ALP [Catalytic activity/Vol] 45 U/L Normal 32-92 [facility] Comment on above: Performed By: #### D DIMER, BMP, BNP, HS TROP, CKMB, CK, CBC, PTT, PT #### [address] ALT [Catalytic activity/Vol] 13 U/L Normal 10-60 [facility] Comment on above: Performed By: #### D DIMER, BMP, BNP, HS TROP, CKMB, CK, CBC, PTT, PT #### [address] AST [Catalytic activity/Vol] 18 U/L Normal 10-42 [facility] Comment on above: Performed By: #### D DIMER, BMP, BNP, HS TROP, CKMB, CK, CBC, PTT, PT #### [address] Bilirubin [Mass/Vol] 1.1 mg/dL Normal 0.3-1.2 [facility] Comment on above: Performed By: #### D DIMER, BMP, BNP, HS TROP, CKMB, CK, CBC, PTT, PT #### [facility] [address] Calcium [Mass/Vol] 8.9 mg/dL Normal 8.2-10.2 [facility] Comment on above: Performed By: #### D DIMER, BMP, BNP, HS TROP, CKMB, CK, CBC, PTT, PT #### [facility] [address] Chloride [Moles/Vol] 91 mmol/L Low 95-114 [facility] Comment on above: Performed By: #### D DIMER, BMP, BNP, HS TROP, CKMB, CK, CBC, PTT, PT #### [address] CO2 [Moles/Vol] 30.0 mmol/L Normal 22.0-30.0 [facility] Comment on above: Performed By: #### D DIMER, BMP, BNP, HS TROP, CKMB, CK, CBC, PTT, PT #### [address] Creatinine [Mass/Vol] 0.70 mg/dL Normal 0.64-1.27 [facility] Comment on above: Performed By: #### D DIMER, BMP, BNP, HS TROP, CKMB, CK, CBC, PTT, PT #### [address] Creatinine Clr Calc Pharmacy 62.94 [facility] Comment on above: Performed By: #### D DIMER, BMP, BNP, HS TROP, CKMB, CK, CBC, PTT, PT #### [address] Estimated GFR ( [place] > 60 [facility] Comment on above: Result Comment: GFR estimated reference range: According to KDOQI guidelines, <60 ml/min/1.73m2 is sufficient to diagnose a patient with chronic kidney disease. Performed By: #### D DIMER, BMP, BNP, HS TROP, CKMB, CK, CBC, PTT, PT #### [place] [address] [place] Estimated GFR (Non- Am > 60 Normal [facility] Comment on above: Performed By: #### D DIMER, BMP, BNP, HS TROP, CKMB, CK, CBC, PTT, PT #### [facility] [address] Globulin (S) [Mass/Vol] 2.9 g/dL Normal [facility] Comment on above: Performed By: #### D DIMER, BMP, BNP, HS TROP, CKMB, CK, CBC, PTT, PT #### [facility] [address] Glucose [Mass/Vol] 170 mg/dL High 70-100 [facility] Comment on above: Result Comment: [facility] [place] Glucose Reference Range is dependent on time and content of last meal. Glucose of more than 200 mg/dL in a nonstressed, ambulatory subject supports the diagnosis of Diabetes Mellitus. ADA recommended reference range Performed By: #### D DIMER, BMP, BNP, HS TROP, CKMB, CK, CBC, PTT, PT #### [facility] [address] Potassium [Moles/Vol] 3.8 mmol/L Normal 3.5-5.1 [facility] Comment on above: Performed By: #### D DIMER, BMP, BNP, HS TROP, CKMB, CK, CBC, PTT, PT #### [facility] [address] Protein [Mass/Vol] 6.3 g/dL Normal 6.1-7.9 [facility] Comment on above: Performed By: #### D DIMER, BMP, BNP, HS TROP, CKMB, CK, CBC, PTT, PT #### [facility] [address] Sodium [Moles/Vol] 131 mmol/L Low 136-146 [facility] Comment on above: Performed By: #### D DIMER, BMP, BNP, HS TROP, CKMB, CK, CBC, PTT, PT #### [facility] [address] Urea nitrogen [Mass/Vol] 19 mg/dL Normal 9-23 [facility] Comment on above: Performed By: #### D DIMER, BMP, BNP, HS TROP, CKMB, CK, CBC, PTT, PT #### [facility] [address] [place] [id number] [facility] Creatine Kinaseon 01-01-2022 CK [Catalytic activity/Vol] 74 U/L Normal 22-269 [facility] Comment on above: Performed By: #### D DIMER, BMP, BNP, HS TROP, CKMB, CK, CBC, PTT, PT #### [facility] [address] Creatinine Kinase MBon 01-01 CK.MB [Mass/Vol] 3.5 ng/mL Normal 0.6-6.3 [facility] Comment on above: Performed By: #### D DIMER, BMP, BNP, HS TROP, CKMB, CK, CBC, PTT, PT #### [facility] [address] CKMB Relative Index 4.7 % High 0.00-2.50 [facility] Comment on above: Performed By: #### D DIMER, BMP, BNP, HS TROP, CKMB, CK, CBC, PTT, PT #### [facility] [address] [place] [id number] [facility] D-Dimer High Sensitivityon 0 01-01-2022 D-Dimer High Sensitivity 280 ng/mL High 0-243 [facility] Comment on above: Result Comment: The reference [...] patients due to co-morbid conditions. PERFORMED BY: [place] [address] PATHOLOGIST MANAGER PHOTOGRAPHY NICHOLE BOLDEN M.D. Performed By: #### D DIMER, BMP, BNP, HS TROP, CKMB, CK, CBC, PTT, PT #### [address] Dipstick and Microscopicon 0 01-01-2022 Appearance (U) Clear Normal Clear [facility] Comment on above: Order Comment: Name Collection Type:: Clean-Voided Midstream Performed By: #### D DIMER, BMP, BNP, HS TROP, CKMB, CK, CBC, PTT, PT #### [facility] [address] Bacteria,Urine None Seen Normal None Seen [facility] Comment on above: Order Comment: Name Collection Type:: Clean-Voided Midstream Performed By: #### D DIMER, BMP, BNP, HS TROP, CKMB, CK, CBC, PTT, PT #### [address] Bilirubin,Urine Negative Normal Negative [facility] Comment on above: Order Comment: Name Collection Type:: Clean-Voided Midstream Performed By: #### D DIMER, BMP, BNP, HS TROP, CKMB, CK, CBC, PTT, PT #### [address] Color (U) [place] Critically abnormal Yellow [facility] Comment on above: Order Comment: Name Collection Type:: Clean-Voided Midstream Performed By: #### D DIMER, BMP, BNP, HS TROP, CKMB, CK, CBC, PTT, PT #### [address] Glucose Ql (U) Normal Normal Normal [facility] Comment on above: Order Comment: Name Collection Type:: Clean-Voided Midstream Performed By: #### D DIMER, BMP, BNP, HS TROP, CKMB, CK, CBC, PTT, PT #### [address] Hyaline Casts,Urine 0-8 Normal 0-8 [facility] Comment on above: Order Comment: Name Collection Type:: Clean-Voided Midstream Result Comment: PERF ORMED BY: [place] [address] PATHOLOGIST MANAGER PHOTOGRAPHY NICHOLE BOLDEN M.D. Performed By: #### D DIMER, BMP, BNP, HS TROP, CKMB, CK, CBC, PTT, PT #### [address] Ketones Ql (U) Negative Normal Negative [facility] Comment on above: Order Comment: Name Collection Type:: Clean-Voided Midstream Performed By: #### D DIMER, BMP, BNP, HS TROP, CKMB, CK, CBC, PTT, PT #### [address] Leukocyte esterase Test strip Ql (U) Negative Normal Negative [facility] Comment on above: Order Comment: Name Collection Type:: Clean-Voided Midstream Performed By: #### D DIMER, BMP, BNP, HS TROP, CKMB, CK, CBC, PTT, PT #### [address] Nitrite,Urine Negative Normal Negative [facility] Comment on above: Order Comment: Name Collection Type:: Clean-Voided Midstream Performed By: #### D DIMER, BMP, BNP, HS TROP, CKMB, CK, CBC, PTT, PT #### [address] Occult Blood,Urine Negative Normal Negative [facility] Comment on above: Order Comment: Name Collection Type:: Clean-Voided Midstream Result Comment: PERF ORMED BY: [place] [address] PATHOLOGIST MANAGER PHOTOGRAPHY NICHOLE BOLDEN M.D. Performed By: #### D DIMER, BMP, BNP, HS TROP, CKMB, CK, CBC, PTT, PT #### [place] [id number] [place] pH (U) 5.5 [pH] Normal 5.0-9.0 [facility] Comment on above: Order Comment: Name Collection Type:: Clean-Voided Midstream Performed By: #### D DIMER, BMP, BNP, HS TROP, CKMB, CK, CBC, PTT, PT #### [address] Protein,Urine Negative Normal Negative [facility] Comment on above: Order Comment: Name Collection Type:: Clean-Voided Midstream Performed By: #### D DIMER, BMP, BNP, HS TROP, CKMB, CK, CBC, PTT, PT #### [address] RBC LM.HPF (Urine sed) [#/Area] 0 /[HPF] Normal 0-4 [facility] Comment on above: Order Comment: Name Collection Type:: Clean-Voided Midstream Performed By: #### D DIMER, BMP, BNP, HS TROP, CKMB, CK, CBC, PTT, PT #### [address] Specificy [place],Urine 1.020 Normal 1.001-1.030 [facility] Comment on above: Order Comment: Name Collection Type:: Clean-Voided Midstream Performed By: #### D DIMER, BMP, BNP, HS TROP, CKMB, CK, CBC, PTT, PT #### [address] Squamous Epithelial Cell,Urine 1-2 Normal 0-2 [facility] Comment on above: Order Comment: Name Collection Type:: Clean-Voided Midstream Performed By: #### D DIMER, BMP, BNP, HS TROP, CKMB, CK, CBC, PTT, PT #### [address] Urobilinogen,Urine Normal Normal Normal [facility] Comment on above: Order Comment: Name Collection Type:: Clean-Voided Midstream Performed By: #### D DIMER, BMP, BNP, HS TROP, CKMB, CK, CBC, PTT, PT #### [address] WBC,Urine None Seen Normal 0-4 [facility] Comment on above: Order Comment: Name Collection Type:: Clean-Voided Midstream Performed By: #### D DIMER, BMP, BNP, HS TROP, CKMB, CK, CBC, PTT, PT #### [address] ECG 12 lead ECGon 01-01-2022 ECG 12 lead ECG [place] [address] Electrocardiograph Report Signed Patient: Esa Leavitt MR#: [id number] 623 : 1935 Acct:[id number] Age/Sex: 86 / M ADM Date: 01/01/22 Loc: 3T Room: [address] [place] [address] Type: DIS IN Attending Dr: Mohsen Muniz [...] By Bouchra Hugo MD 12/07 11/26 0137 [facility] ECG 12 lead ECG [place] [address] Electrocardiograph Report Signed Patient: Esa Leavitt MR#: [id number] 623 : 1935 Acct:[id number] Age/Sex: 86 / M ADM Date: 01/01/22 Loc: Room: [address] [place] [address] Type: DIS IN Attending Dr: Mohsen Muniz [...] previous ECGs available Confirmed by NASREEN JOHNS [facility], [place] ([id number]) on 01/03/2022 1:15:10 PM Referred By: HOSP Electronically Signed By:DEMETRA DOWNEY MD [facility] Transcribed By: MUS Signed By Demetra Downey MD, [facility] 01/03/22 1315 Normal [facility] echo transthoracicon [facility] echo transthoracic [facility] Main [place] [address] [place] [address] Echocardiogram Signed Patient: Esa Leavitt MR#: [id number] 623 : 1935 Acct:[id number] Age/Sex: 86 / M ADM Date: 01/01/22 Loc: Room: [address] [place] [address] Type: DIS IN Attending Dr: Mohsen Muniz MD Ordering Provider: Anabella Stone MD Date of Service: 01/01/22 [facility] echo transthoracic: Chest Pain Copies to: MD Demetra Le MD, [facility] Weight: 157 lb Performed By: VERO [...] 01/01/22 1031 Signed By: Demetra Downey MD, [facility] 01/02/22 1142 Normal [facility] Free T4 (Free Thyroxine)on 0 01-01-2022 Free T4 [Mass/Vol] 0.95 ng/dL Normal 0.61-1.12 [facility] Comment on above: Performed By: #### D DIMER, BMP, BNP, HS TROP, CKMB, CK, CBC, PTT, PT #### [facility] [address] [place] [address] Glucose Poct Glucometerson 0 01-01-2022 Glucose [Mass/Vol] 180 mg/dL Normal [facility] Comment on above: Result Comment: [place] Glucose Reference Range is dependent on time and content of last meal. Glucose of more than 200 mg/dL in a nonstressed, ambulatory subject supports the diagnosis of Diabetes Mellitus. PERFORMED BY: [place] [address] PATHOLOGIST MANAGER PHOTOGRAPHY NICHOLE BOLDEN M.D. Performed By: #### G LULS #### Point of Care testing , Glucose [Mass/Vol] 176 mg/dL Normal [facility] Comment on above: Result Comment: [facility] [place] Glucose Reference Range is dependent on time and content of last meal. Glucose of more than 200 mg/dL in a nonstressed, ambulatory subject supports the diagnosis of Diabetes Mellitus. PERFORMED BY: [place] [address] PATHOLOGIST MANAGER PHOTOGRAPHY NICHOLE BOLDEN M.D. Performed By: #### D DIMER, BMP, BNP, HS TROP, CKMB, CK, CBC, PTT, PT #### [address] Glucose [Mass/Vol] 130 mg/dL Normal [facility] Comment on above: Result Comment: [place] om Glucose Reference Range is dependent on time and content of last meal. Glucose of more than 200 mg/dL in a nonstressed, ambulatory subject supports the diagnosis of Diabetes Mellitus. PERFORMED BY: [place] [address] PATHOLOGIST MANAGER PHOTOGRAPHY NICHOLE BOLDEN M.D. Performed By: #### D DIMER, BMP, BNP, HS TROP, CKMB, CK, CBC, PTT, PT #### [address] Glucose [Mass/Vol] 159 mg/dL Normal [facility] Comment on above: Result Comment: [place] om Glucose Reference Range is dependent on time and content of last meal. Glucose of more than 200 mg/dL in a nonstressed, ambulatory subject supports the diagnosis of Diabetes Mellitus. PERFORMED BY: [place] [address] PATHOLOGIST MANAGER PHOTOGRAPHY NICHOLE BOLDEN M.D. Performed By: #### D DIMER, BMP, BNP, HS TROP, CKMB, CK, CBC, PTT, PT #### [place] [id number] [facility] Ketones Auto test strip (U) [Mass/Vol]Ordered By: Ronit Caruso on 01-01-2022 Ketones (U) [Mass/Vol] Negative Negative [facility] - Chemistry and C hemistry - challengeOrdered By: Anabella Dunlap on 01-01-2022 Magnesium [Mass/Vol] 1.7 mg/dL 1.6-2.6 [facility] Laboratory - UrinalysisOrder ed By: Ronit Caruso on 01-01-2022 Hyaline casts LM Ql (Urine sed) 0-8 [LPF] 0-8 [facility] Magnesiumon 01-01-2022 Magnesium [Mass/Vol] 1.7 mg/dL Normal 1.6-2.6 [facility] Comment on above: Result Comment: PERF ORMED BY: [place] [address] PATHOLOGIST MANAGER PHOTOGRAPHY NICHOLE BOLDEN M.D. Performed By: #### D DIMER, BMP, BNP, HS TROP, CKMB, CK, CBC, PTT, PT #### [facility] [address] Nitrite Test strip Ql (U)Ord ered By: Ronit Caruso on 01-01-2022 Nitrite Ql (U) Negative Negative [facility] No Panel InformationOrdered By: Bouchra Hugo on 01-01-2022 SARS Antigen (LFIA) [facility] Partial Thromboplastin Timeo n 01-01-2022 aPTT Coag (Bld) [Time] 29.3 s Normal 25.1-36.5 [facility] Comment on above: Performed By: #### D DIMER, BMP, BNP, HS TROP, CKMB, CK, CBC, PTT, PT #### [address] Protein Auto test strip (U) [Mass/Vol]Ordered By: Ronit Caruso on 01-01-2022 Protein (U) [Mass/Vol] Negative Negative [facility] Prothrombin Time INRon 01-01 INR Coag (PPP) [Relative time] 1.1 {INR} Normal [facility] Comment on above: Result Comment: INR Therapeutic [...] TROP, CKMB, CK, CBC, PTT, PT #### [facility] [address] PT Coag (PPP) [Time] 12.6 s Normal 9.0-12.9 [facility] Comment on above: Performed By: #### D DIMER, BMP, BNP, HS TROP, CKMB, CK, CBC, PTT, PT #### [address] Ya Ag Negativeon 01-02-20 22 Ya Ag Negative Negative Normal Negative [facility] Comment on above: Result Comment: This is a duplicate Ya SARS Antigen (GEREMIAS) result to be used for statistical tracking purpose only. PERFORMED BY: [place] [address] PATHOLOGIST MANAGER PHOTOGRAPHY NICHOLE BOLDEN M.D. Performed By: #### D DIMER, BMP, BNP, HS TROP, CKMB, CK, CBC, PTT, PT #### [address] Specific gravity Auto test s trip (U) [Rel density]Ordered By: Ronit Caruso on 01-01-2022 Specific gravity (U) [Rel density] 1.020 1.001-1.030 [facility] Squamous epithelial cells de tection in urine sediment by light microscopyOrdered By: Ronit Caruso on 01-01-2022 Epithelial cells.squamous LM Ql (Urine sed) 1-2 [HPF] 0-2 [facility] Thyroid Stimulating Hormoneo n 01-01-2022 TSH Qn 1.39 m[IU]/L Normal 0.45-5.33 [facility] Comment on above: Result Comment: PERF ORMED BY: [place] [address] PATHOLOGIST MANAGER PHOTOGRAPHY NICHOLE BOLDEN M.D. Performed By: #### D DIMER, BMP, BNP, HS TROP, CKMB, CK, CBC, PTT, PT #### [address] Troponin I High Sensitivityo n 01-01-2022 Troponin I High Sensitivity 4 pg/mL Normal 0-20 [facility] Comment on above: Result Comment: PERF ORMED BY: [place] [address] PATHOLOGIST MANAGER PHOTOGRAPHY JIANLAN SUN M.D. Performed By: #### D DIMER, BMP, BNP, HS TROP, CKMB, CK, CBC, PTT, PT #### [facility] [address] [place] [address] [place] Troponin I High Sensitivity 5 pg/mL Normal 0-20 [facility] Comment on above: Result Comment: PERF ORMED BY: [place] [address] PATHOLOGIST MANAGER PHOTOGRAPHY NICHOLE BOLDEN M.D. Performed By: #### D DIMER, BMP, BNP, HS TROP, CKMB, CK, CBC, PTT, PT #### [facility] [address] [place] [id number] [place] Troponin I High Sensitivity 8 pg/mL Normal 0-20 [facility] Comment on above: Result Comment: PERF ORMED BY: [place] [address] PATHOLOGIST MANAGER PHOTOGRAPHY NICHOLE BOLDEN M.D. Performed By: #### D DIMER, BMP, BNP, HS TROP, CKMB, CK, CBC, PTT, PT #### [facility] [address] [place] [address] [place] Troponin I.cardiac [Mass/vol ume] in Serum or Plasma by High sensitivity methodOrdered By: Anabella Dunlap on 01-01-2022 Troponin I.cardiac High sensitivity method [Mass/Vol] 8 pg/mL 0-20 [facility] Urine bacteria detection by automated methodOrdered By: Ronit Caruso on 01-01-2022 Bacteria Auto Ql (U) None seen None Seen [facility] Urine clarity by refractomet ry automatedOrdered By: Ronit Caruso on 01-01-2022 Clarity Refractometry automated (U) Clear Clear [facility] Urine glucose measurement by automated test strip (mass/volume)Ordered By: Ronit Caruso on 01-01-2022 Glucose Auto test strip (U) [Mass/Vol] Normal mg/dL Normal [facility] Urine hemoglobin detection b y automated test stripOrdered By: Ronit Caruso on 01-01-2022 Hemoglobin Auto test strip Ql (U) Negative Negative [facility] Urine leukocyte esterase det ection by automated test stripOrdered By: Ronit Caruso on 01-01-2022 Leukocyte esterase Auto test strip Ql (U) Negative Negative [facility] Urobilinogen Auto test strip (U) [Mass/Vol]Ordered By: Ronit Caruso on 01-01-2022 Urobilinogen (U) [Mass/Vol] Normal mg/dL Normal [facility] XR chest 1V portableon 01-01 XR chest 1V portable [place] [address] XRay Report Signed Patient: Esa Leavitt MR#: [id number] 623 : 1935 Acct:[id number] Age/Sex: 86 / M ADM Date: 01/01/22 Loc: Room: [address] [place] [address] Type: ADM IN Attending Dr: Ronit Caruso [...] Brooks Easley M.D.01/01/2022 8:02 AM Dictation Location: [place] [address] Transcribed By: [facility] 01/01/22801 Dictated By: Brooks Easley DO 01/01/22800 Signed By: 01/01/22801 [facility] pH Auto test strip (U)Ordere d By: Ronit Caruso on 01-01-2022 pH (U) 5.5 [pH] 5.0-9.0 [facility] Activated partial thrombopla stin time (aPTT) in platelet poor plasma by coagulation aOrdered By: Bouchra Hugo on 12-31-2021 aPTT Coag (PPP) [Time] 29.3 s 25.1-36.5 [facility] COVID-19 Positive/NegativeOr dered By: Bouchra Hugo on 12-31-2021 SARS-CoV-2 (COVID-19) N gene JEFF+probe Ql (Resp) Negative Negative [facility] Comment on above: Testing for SARS-CoV -2 by RT-PCR This test was developed and its performance characteristics determined by [employer] and validated at the [facility]. This test has not been FDA cleared [...] (COVID-19) Ag IA.rapid Ql (Resp) Negative Negative [facility] Comment on above: This is a duplicate Ya SARS Antigen (GEREMIAS) result to be used for statistical tracking purpose only. Creatine kinase [Enzymatic a ctivity/volume] in Serum or PlasmaOrdered By: Bouchra Hugo on 12-31-2021 CK [Catalytic activity/Vol] 74 U/L 22-269 [facility] Laboratory - Chemistry and C hemistry - challengeOrdered By: Bouchra Hugo on 12-31-2021 Natriuretic peptide B (Bld) [Mass/Vol] 157.0 pg/mL 5-100 [facility] Laboratory - CoagulationOrde red By: Bouchra Hugo on 12-31-2021 PT Coag (PPP) [Time] 12.6 s 9.0-12.9 [facility] - Microbiology an d Antimicrobial susceptibilityOrdered By: Bouchra Hugo on 12-31-2021 SARS-CoV-2 (COVID-19) RNA JEFF+probe Ql (Unsp spec) N/A [facility] No Panel InformationOrdered By: Bouchra Hugo on 12-31-2021 D-Dimer Quantitative (PE/DVT) 280 ng/mL 0-243 [facility] Comment on above: The reference range for [...] INR Coag (PPP) [Relative time] 1.1 {INR} [facility] Comment on above: INR Therapeutic Rang e [...] CK.MB Calc [Catalytic fraction] 4.7 % 0.00-2.50 [facility] Serum or plasma creatine kin ase MB measurement (mass/volume)Ordered By: Bouchra Hugo on 12-31-2021 CK.MB [Mass/Vol] 3.5 ng/mL 0.6-6.3 [facility] Thyroxine (T4) free [Mass/vo lume] in Serum or PlasmaOrdered By: Anabella Dunlap on 12-31-2021 Free T4 [Mass/Vol] 0.95 ng/dL 0.61-1.12 [facility] Comprehensive Metabolic Pane ritika 10-07-2021 Albumin [Mass/Vol] 4.2 g/dL Normal 3.6-5.1 [facility] Comment on above: Performed By: #### C MP #### [facility] [address] [facility] [id number] Albumin/Globulin [Mass ratio] 1.5 {ratio} Normal 1.0-2.5 [facility] Comment on above: Performed By: #### C MP #### [facility] [address] [facility] [id number] ALP [Catalytic activity/Vol] 74 U/L Normal 40-129 [facility] Comment on above: Performed By: #### C MP #### [facility] [address] [place], [place] [id number] ALT [Catalytic activity/Vol] 14 U/L Normal 9-46 [facility] Comment on above: Result Comment: 04/07 Female reference range changed. Performed By: #### C MP #### [facility] [address] [place], [place] [id number] Anion gap [Moles/Vol] 18 mmol/L Normal 12-20 [facility] Comment on above: Result Comment: Effe ctive 05/13/2019 reference range changed. Performed By: #### C MP #### [facility] [address] [facility] [id number] AST [Catalytic activity/Vol] 18 U/L Normal 10-40 [facility] Comment on above: Performed By: #### C MP #### [facility] [address] [facility] [id number] Bilirubin [Mass/Vol] 0.61 mg/dL Normal 0.30-1.[address] [facility] Comment on above: Performed By: #### C MP #### [facility] [address] [facility] [id number] BUN/CREA 52 Ratio High 6-22 [facility] Comment on above: Performed By: #### C MP #### [facility] [address] [place], [place] [id number] Calcium [Mass/Vol] 9.4 mg/dL Normal 8.6-10.2 Luis E [facility] Comment on above: Performed By: #### C MP #### [facility] [address] [place], [place] [id number] Chloride [Moles/Vol] 98 mmol/L Normal 98-[address] [facility] Comment on above: Performed By: #### C MP #### [facility] [address] [place], [place] [id number] CO2 [Moles/Vol] 26 mmol/L Normal 20-31 [facility] Comment on above: Performed By: #### C MP #### [facility] [address] [place], [place] [id number] Creatinine [Mass/Vol] 0.5 mg/dL Low 0.7-1.4 [facility] Comment on above: Performed By: #### C MP #### [facility] [address] [place], [place] [id number] eGFRAA 200 mL/min/1.73m2 Normal >60 [facility] Specialist Comment on above: Performed By: #### C MP #### [facility] [address] [place], [place] [id number] eGFRNAA 165 mL/min/1.73m2 Normal >60 [facility] Comment on above: Performed By: #### C MP #### [facility] [address] [place], [place] [id number] Globulin (S) [Mass/Vol] 2.8 g/dL Normal 1.9-3.7 [facility] Comment on above: Performed By: #### C MP #### [facility] [address] [place], [place] [id number] Glucose [Mass/Vol] 119 mg/dL High 65-99 [facility] Est[facility] Comment on above: Result Comment: For FASTING Glucose --- ADA reference ranges: Normal 65-99 mg/dl Prediabetes 100-125 Diabetes >/= 126 Performed By: #### C MP #### [facility] [address] [place], [place] [id number] Potassium [Moles/Vol] 4.5 mmol/L Normal 3.5-5.5 [facility] [place] Licensed Esthetician Comment on above: Result Comment: Spec patria is hemolyzed. Results may be affected. Performed By: #### C MP #### [facility] [address] [place], [place] [id number] Protein [Mass/Vol] 7.0 g/dL Normal 6.1-8.1 Luis E bentley [place] Licensed Esthetician Comment on above: Performed By: #### C MP #### [facility] [address] [place], [place] [id number] Sodium [Moles/Vol] 137 mmol/L Normal 135-146 Luis E bentley [place] Licensed Esthetician Comment on above: Performed By: #### C MP #### [facility] [address] [place], [place] [id number] Urea nitrogen [Mass/Vol] 25 mg/dL Normal 7-25 [facility] Specialist Comment on above: Performed By: #### C MP #### [facility] [address] [place], [place] [id number] MG MAMM YANY DIAG W CADon MG MAMM YANY DIAG W CAD Patient: ESA LEAVITT Exam Date: 10/16/2020 : 1935 Gender:M Ordering : DR BETO BECKWITH M.D. Admission #: [id number] Family : Order #: [id number] CLICK HERE TO VIEW EXAM RADIOLOGY REPORT [...] Treatments None Family Cancers None LOCATION: [facility] BREAST COMPOSITION: Almost entirely fatty. FINDINGS: [...] Menezes MD on 10/16/2020 at 11:04 Normal [facility] Social History Date Type Detail Facility Start: 01-06-2022 Unknown if vivian ruth smoked [facility] Start: 01-01-2022 [facility] Start: 1935 Sex Assigned At Male F [facility] Vital Signs Date Time Vital Sign Value Performing Clinician Facility 01-25-2022 10:50-0400 PAIN LEVEL 0 {score} Dr. Minh Bucio [facility] 01-25-2022 10:42-0400 Body temperature 97 [degF] Dr. Minh Groverjuwan [facility] 01-25-2022 10:42-0400 Diastolic blood pressure 80 mm[Hg] Dr. Minh Kim [facility] 01-25-2022 10:42-0400 Heart rate 78 [facility] 01-25-2022 10:42-0400 Respiratory rate 18 /min Dr. Minh Bucio [facility] 01-25-2022 10:42-0400 Systolic blood pressure 133 mm[Hg] Dr. Minh Kim [facility] 01-25-2022 07:57-0400 PAIN LEVEL 1 {score} Dr. Minh Bucio [facility] 01-25-2022 06:38-0400 PAIN LEVEL 2 {score} Dr. Minh Bucio [facility] 01-25-2022 01:51-0400 Body temperature 97.1 [degF] Dr. Minh Bucio [facility] 01-25-2022 01:51-0400 Diastolic blood pressure 65 mm[Hg[facility] 01-25-2022 01:51-0400 Heart rate 87 /min Dr. Minh Bucio [facility] 01-25-2022 01:51-0400 Respiratory rate 17 /[facility] 01-25-2022 01:51-0400 Systolic blood pressure 162 mm[facility]Hg[facility] 01-25-2022 01:05-0400 PAIN LEVEL 0 {score} Dr. Minh Bucio [facility] 01-24-2022 11:04-0400 PAIN LEVEL 0 {score} [facility] 01-24-2022 01:42-0400 Body temperature 96.6 [degF] Dr. Minh Bucio [facility] 01-24-2022 01:42-0400 Diastolic blood pressure 60 mm[Hg] Dr. Minh Kim [facility] 01-24-2022 01:42-0400 Heart rate 75 /[facility] 01-24-2022 01:42-0400 Respiratory rate 16 /min Dr. Minh Bucio [facility] 01-24-2022 01:42-0400 Systolic blood pressure 144 mm[Hg] Dr. Minh Kim [facility] 01-24-2022 00:10-0400 PAIN LEVEL 0 {score} Dr. Minh Bucio [facility] 01-23-2022 17:21-0400 PAIN LEVEL 0 {score} Dr. Minh Groverjuwan [facility] 01-23-2022 00:23-0400 PAIN LEVEL 1 {score} Dr. Minh Bucio [facility] 01-22-2022 18:57-0400 Body temperature 97.2 [degF] Dr. Minh Kim [facility] 01-22-2022 18:57-0400 Diastolic blood pressure 52 mm[Hg] Dr. Minh Kim [facility] 01-22-2022 18:57-0400 Heart rate 72 /min Dr. Minh Kim [facility] 01-22-2022 18:57-0400 Respiratory rate 1797 /min Dr. Minh Kim [facility] 01-22-2022 18:57-0400 Systolic blood pressure 111 mm[Hg] Dr. Minh Kim [facility] 01-22-2022 08:31-0400 PAIN LEVEL 0 {score} Dr. Minh Bucio [facility] 01-22-2022 06:38-0400 PAIN LEVEL 0 {score} [facility] 01-22-2022 05:33-0400 PAIN LEVEL 3 {score} Dr. Minh Bucio [facility] 01-22-2022 01:10-0400 PAIN LEVEL 0 {score} Dr. Minh Bucio [facility] 01-22-2022 01:08-0400 Body temperature 96.4 [degF] Dr. Minh Bucio [facility] 01-22-2022 01:08-0400 Diastolic blood pressure 57 mm[Hg[facility] 01-22-2022 01:08-0400 Heart rate 70 /min Dr. Minh Bucio [facility] 01-22-2022 01:08-0400 Respiratory rate 14 /[facility] 01-22-2022 01:08-0400 Systolic blood pressure 165 mm[Hg] Dr. Minh Kim [facility] 01-21-2022 11:37-0400 PAIN LEVEL 2 {score} Dr. Minh Groverjuwan [facility] 01-21-2022 10:07-0400 PAIN LEVEL 4 {score} [facility] 01-21-2022 05:22-0400 Body temperature 97.8 [degF] Dr. Minh Bucio [facility] 01-21-2022 05:22-0400 Diastolic blood pressure 67 mm[Hg] Dr. Minh Kim [facility] 01-21-2022 05:22-0400 Heart rate 79 /[facility] 01-21-2022 05:22-0400 Respiratory rate 16 /min Dr. Minh Bucio [facility] 01-21-2022 05:22-0400 Systolic blood pressure 143 mm[Hg] Dr. Minh Kim [facility] 01-21-2022 04:22-0400 PAIN LEVEL 0 {score} Dr. Minh Bucio [facility] 01-20-2022 10:32-0400 PAIN LEVEL 1 {score} [facility] 01-20-2022 04:13-0400 Body temperature 97 [degF] Dr. Minh Bucio [facility] 01-20-2022 04:13-0400 Diastolic blood pressure 64 mm[Hg] Dr. Minh Kim [facility] 01-20-2022 04:13-0400 Heart rate 88 /[facility] 01-20-2022 04:13-0400 Respiratory rate 20 /min Dr. Minh Kim [facility] 01-20-2022 04:13-0400 Systolic blood pressure 143 mm[Hg] Dr. Minh Kim [facility] 01-20-2022 03:36-0400 PAIN LEVEL 0 {score} [facility] 01-19-2022 20:16-0400 PAIN LEVEL 1 {score} Dr. Minh Bucio [facility] 01-19-2022 19:58-0400 Body temperature 96.8 [degF] Dr. Minh Kim [facility] 01-19-2022 19:58-0400 Diastolic blood pressure 62 mm[Hg] Dr. Minh Kim [facility] 01-19-2022 19:58-0400 Heart rate 73 /[facility] 01-19-2022 19:58-0400 Respiratory rate 18 /min Dr. Minh Bucio [facility] 01-19-2022 19:58-0400 Systolic blood pressure 147 mm[Hg] Dr. Minh Kim [facility] 01-19-2022 19:10-0400 PAIN LEVEL 2 {score} Dr. Minh Bucio [facility] 01-19-2022 10:41-0400 PAIN LEVEL 0 {score} [facility] 01-19-2022 06:00-0400 Oxygen saturation in Blood 92 % Dr. Minh Kim [facility] 01-19-2022 02:18-0400 Body temperature 97.8 [degF] Dr. Minh Bucio [facility] 01-19-2022 02:18-0400 Diastolic blood pressure 70 mm[Hg] Dr. Minh Kim [facility] 01-19-2022 02:18-0400 Heart rate 87 /min Dr. Minh Kim [facility] 01-19-2022 02:18-0400 Respiratory rate 20 /[facility] 01-19-2022 02:18-0400 Systolic blood pressure 158 mm[Hg] Dr. Minh Kim [facility] 01-19-2022 02:16-0400 PAIN LEVEL 1 {score} Dr. Minh Bucio [facility] 01-19-2022 00:01-0400 PAIN LEVEL 2 {score} Dr. Minh Bucio [facility] 01-18-2022 19:38-0400 PAIN LEVEL 0 {score} Dr. Minh Bucio [facility] 01-18-2022 16:25-0400 Body temperature 97.5 [degF] Dr. Minh Bucio [facility] 01-18-2022 16:25-0400 Diastolic blood pressure 56 mm[Hg] Dr. Minh Kim [facility] 01-18-2022 16:25-0400 Heart rate 76 /[facility] 01-18-2022 16:25-0400 Respiratory rate 15 /min Dr. Minh Bucio [facility] 01-18-2022 16:25-0400 Systolic blood pressure 128 mm[Hg] Dr. Minh Kim [facility] 01-18-2022 11:17-0400 PAIN LEVEL 0 {score} [facility] 01-18-2022 09:31-0400 PAIN LEVEL 5 {score} [facility] 01-18-2022 02:08-0400 PAIN LEVEL 0 {score} Dr. Minh Bucio [facility] 01-17-2022 16:19-0400 PAIN LEVEL 0 {score} Dr. Minh Bucio [facility] 01-17-2022 09:50-0400 PAIN LEVEL 0 {score} Dr. Minh Bucio [facility] 01-17-2022 06:42-0400 PAIN LEVEL 0 {score} Dr. Minh Bucio [facility] 01-17-2022 00:29-0400 PAIN LEVEL 3 {score} Dr. Minh Bucio [facility] 01-16-2022 17:57-0400 Body temperature 97.4 [degF] Dr. Minh Bucio [facility] 01-16-2022 17:57-0400 Diastolic blood pressure 67 mm[Hg] Dr. Minh Kim [facility] 01-16-2022 17:57-0400 Heart rate 77 /min Dr. Minh Kim [facility] 01-16-2022 17:57-0400 Oxygen saturation in Blood 97 % Dr. Minh Kim [facility] 01-16-2022 17:57-0400 Respiratory rate 17 /min Dr. Minh Bucio [facility] 01-16-2022 17:57-0400 Systolic blood pressure 153 mm[Hg] Dr. Minh Kim [facility] 01-16-2022 11:52-0400 Body weight 73.[address] Minh Kim [facility] 01-16-2022 10:02-0400 PAIN LEVEL 0 {score} Dr. Minh Bucio [facility] 01-16-2022 09:26-0400 Body temperature 98 [degF] Dr. Minh Bucio [facility] 01-16-2022 09:26-0400 Diastolic blood pressure 55 mm[Hg] Dr. Minh Kim [facility] 01-16-2022 09:26-0400 Heart rate 81 /[facility] 01-16-2022 09:26-0400 Respiratory rate 17 /min Dr. Minh Bucio [facility] 01-16-2022 09:26-0400 Systolic blood pressure 113 mm[Hg[facility] 01-16-2022 09:03-0400 PAIN LEVEL 1 {score} Dr. Minh Bucio [facility] 01-16-2022 07:56-0400 PAIN LEVEL 4 {score} Dr. Minh Bucio [facility] 01-16-2022 02:08-0400 PAIN LEVEL 0 {score} Dr. Minh Bucio [facility] 01-15-2022 21:31-0400 Body temperature 97.6 [degF] Dr. Minh Bucio [facility] 01-15-2022 21:31-0400 Diastolic blood pressure 57 mm[Hg] Dr. Minh Kim [facility] 01-15-2022 21:31-0400 Heart rate 75 /[facility] 01-15-2022 21:31-0400 Oxygen saturation in Blood 97 % Dr. Minh Kim [facility] 01-15-2022 21:31-0400 Respiratory rate 20 /min Dr. Minh Bucio [facility] 01-15-2022 21:31-0400 Systolic blood pressure 110 mm[Hg] Dr. Minh Kim [facility] 01-15-2022 11:34-0400 Body temperature 97.9 [degF] Dr. Minh Bucio [facility] 01-15-2022 11:34-0400 Diastolic blood pressure 66 mm[Hg] [facility] 01-15-2022 11:34-0400 Heart rate 97 /min Dr. Minh Bucio [facility] 01-15-2022 11:34-0400 Respiratory rate 17 /min Dr. Minh Bucio [facility] 01-15-2022 11:34-0400 Systolic blood pressure 102 mm[Hg] [facility] 01-15-2022 09:58-0400 PAIN LEVEL 1 {score} Dr. Minh Bucio [facility] 01-15-2022 05:43-0400 Body temperature 97.6 [degF] Dr. Minh Bucio [facility] 01-15-2022 05:43-0400 Diastolic blood pressure 58 mm[Hg] Dr. Minh Kim [facility] 01-15-2022 05:43-0400 Heart rate 68 /[facility] 01-15-2022 05:43-0400 Respiratory rate 16 /min Dr. Minh Bucio [facility] 01-15-2022 05:43-0400 Systolic blood pressure 190 mm[Hg] Dr. Minh Kim [facility] 01-15-2022 00:04-0400 PAIN LEVEL 0 {score} Dr. Minh Bucio [facility] 01-14-2022 20:03-0400 PAIN LEVEL 0 {score} Dr. Minh Bucio [facility] 01-14-2022 16:01-0400 Body temperature 97.6 [degF] Dr. Minh Bucio [facility] 01-14-2022 16:01-0400 Diastolic blood pressure 58 mm[Hg] [facility] 01-14-2022 16:01-0400 Heart rate 68 /min Dr. Minh Bucio [facility] 01-14-2022 16:01-0400 Systolic blood pressure 140 mm[Hg] Dr. Minh Kim [facility] 01-14-2022 10:14-0400 PAIN LEVEL 0 {score} Dr. Minh Bucio [facility] 01-14-2022 04:44-0400 PAIN LEVEL 0 {score} Dr. Minh Bucio [facility] 01-13-2022 21:34-0400 Body temperature 97.2 [degF] Dr. Minh Kim [facility] 01-13-2022 21:34-0400 Diastolic blood pressure 65 mm[Hg] Dr. Minh Kim [facility] 01-13-2022 21:34-0400 Heart rate 75 /min Dr. Minh Bucio [facility] 01-13-2022 21:34-0400 Systolic blood pressure 139 mm[Hg] Dr. Minh Kim [facility] 01-13-2022 20:03-0400 PAIN LEVEL 0 {score} Dr. Minh Bucio [facility] 01-13-2022 12:41-0400 Body temperature 97.2 [degF] Dr. Minh Bucio [facility] 01-13-2022 12:41-0400 Diastolic blood pressure 66 mm[Hg[facility] 01-13-2022 12:41-0400 Heart rate 82 /min Dr. Mihn Bucio [facility] 01-13-2022 12:41-0400 Respiratory rate 16 /min Dr. Minh Bucio [facility] 01-13-2022 12:41-0400 Systolic blood pressure 125 mm[Hg] [facility] 01-13-2022 09:40-0400 PAIN LEVEL 0 {score} Dr. Minh Bucio [facility] 01-13-2022 00:58-0400 PAIN LEVEL 0 {score} Dr. Minh Bucio [facility] 01-12-2022 11:51-0400 Body temperature 97.7 [degF] [facility] 01-12-2022 11:51-0400 Diastolic blood pressure 60 mm[Hg[facility] 01-12-2022 11:51-0400 Heart rate 80 /min Dr. Minh Bucio [facility] 01-12-2022 11:51-0400 Respiratory rate 16 /[facility] 01-12-2022 11:51-0400 Systolic blood pressure 130 mm[Hg[facility] 01-12-2022 10:17-0400 PAIN LEVEL 0 {score} Dr. Minh Bucio [facility] 01-12-2022 04:33-0400 Body temperature 96.8 [degF] Dr. Minh Bucio [facility] 01-12-2022 04:33-0400 Diastolic blood pressure 67 mm[Hg[facility] 01-12-2022 04:33-0400 Heart rate 66 /min Dr. Minh Bucio [facility] 01-12-2022 04:33-0400 Respiratory rate 16 /min Dr. Minh Bucio [facility] 01-12-2022 04:33-0400 Systolic blood pressure 143 mm[Hg[facility] 01-11-2022 16:00-0400 Body temperature 97.1 [degF] Dr. Minh Bucio [facility] 01-11-2022 16:00-0400 Diastolic blood pressure 67 mm[Hg] Dr. Minh Kim [facility] 01-11-2022 16:00-0400 Heart rate 66 /min Dr. Minh Bucio [facility] 01-11-2022 16:00-0400 Respiratory rate 18 /min Dr. Minh Bucio [facility] 01-11-2022 16:00-0400 Systolic blood pressure 143 mm[Hg] Dr. Minh Kim [facility] 01-11-2022 09:48-0400 PAIN LEVEL 0 {score} Dr. Minh Bucio [facility] 01-11-2022 09:07-0400 Body temperature 97.5 [degF] Dr. Minh Bucio [facility] 01-11-2022 09:07-0400 Diastolic blood pressure 74 mm[facility]Hg[facility] 01-11-2022 09:07-0400 Heart rate 90 /min Dr. Minh Bucio [facility] 01-11-2022 09:07-0400 Oxygen saturation in Blood 97 % Dr. Minh Kim [facility] 01-11-2022 09:07-0400 Respiratory rate 20 /min Dr. Minh Groverjuwan [facility] 01-11-2022 09:07-0400 Systolic blood pressure 141 mm[Hg[facility] 01-11-2022 04:32-0400 Body temperature 97.6 [degF] Dr. Minh Bucio [facility] 01-11-2022 04:32-0400 Diastolic blood pressure 52 mm[Hg] Dr. Minh Kim [facility] 01-11-2022 04:32-0400 Heart rate 85 /[facility] 01-11-2022 04:32-0400 Respiratory rate 17 /[facility] 01-11-2022 04:32-0400 Systolic blood pressure 134 mm[Hg] Dr. Minh Kim [facility] 01-11-2022 00:16-0400 PAIN LEVEL 0 {score} [facility] 01-10-2022 15:56-0400 Body temperature 97.7 [degF] Dr. Minh Bucio [facility] 01-10-2022 15:56-0400 Diastolic blood pressure 92 mm[Hg] Dr. Minh Kim [facility] 01-10-2022 15:56-0400 Heart rate 75 /min Dr. Minh Bucio [facility] 01-10-2022 15:56-0400 Respiratory rate 20 /min Dr. Minh Bucio [facility] 01-10-2022 15:56-0400 Systolic blood pressure 142 mm[Hg] Dr. Minh Kim [facility] 01-10-2022 04:23-0400 Body temperature 98.2 [degF] Dr. Minh Bucio [facility] 01-10-2022 04:23-0400 Diastolic blood pressure 58 mm[Hg] Dr. Minh Kim [facility] 01-10-2022 04:23-0400 Heart rate 70 /min Dr. Minh Kim [facility] 01-10-2022 04:23-0400 Respiratory rate 16 /[facility] 01-10-2022 04:23-0400 Systolic blood pressure 127 mm[Hg] Dr. Minh Kim [facility] 01-09-2022 18:43-0400 PAIN LEVEL 0 {score} [facility] 01-09-2022 10:11-0400 PAIN LEVEL 0 {score} Dr. Minh Bucio [facility] 01-09-2022 05:23-0400 PAIN LEVEL 0 {score} Dr. Minh Bucio [facility] 01-08-2022 19:46-0400 PAIN LEVEL 0 {score} [facility] 01-08-2022 09:38-0400 PAIN LEVEL 0 {score} Dr. Minh Groverjuwan [facility] 01-07-2022 19:44-0400 Body temperature 96.7 [degF] Dr. Minh Bucio [facility] 01-07-2022 19:44-0400 Diastolic blood pressure 60 mm[Hg] Dr. Minh Kim [facility] 01-07-2022 19:44-0400 Heart rate 74 /min Dr. Minh Bucio [facility] 01-07-2022 19:44-0400 Respiratory rate 14 /min Dr. Minh Bucio [facility] 01-07-2022 19:44-0400 Systolic blood pressure 134 mm[Hg] Dr. Minh Kim [facility] 01-07-2022 12:14-0400 Body temperature 97.3 [degF] Dr. Minh Groverjuwan [facility] 01-07-2022 12:14-0400 Diastolic blood pressure 59 mm[Hg] Dr. Minh Kim [facility] 01-07-2022 12:14-0400 Heart rate 68 /min Dr. Minh Bucio [facility] 01-07-2022 12:14-0400 Respiratory rate 17 /[facility] 01-07-2022 12:14-0400 Systolic blood pressure 125 mm[Hg] Dr. Minh Kim [facility] 01-07-2022 11:26-0400 Oxygen saturation in Blood 94 % Dr. Minh Kim [facility] 01-07-2022 09:26-0400 PAIN LEVEL 0 {score} Dr. Minh Bucio [facility] 01-07-2022 00:21-0400 PAIN LEVEL 0 {score} Dr. Minh Bucio [facility] 01-06-2022 18:24-0400 Body temperature 96.8 [degF] Dr. Minh Bucio [facility] 01-06-2022 18:24-0400 Diastolic blood pressure 89 mm[Hg[facility] 01-06-2022 18:24-0400 Heart rate 77 /min Dr. Minh Bucio [facility] 01-06-2022 18:24-0400 Respiratory rate 18 /[facility] 01-06-2022 18:24-0400 Systolic blood pressure 155 mm[Hg] Dr. Minh Kim [facility] 01-06-2022 16:35-0400 Body weight 73.[address] Minh Bucio [facility] 01-06-2022 15:33-0400 PAIN LEVEL 0 {score} Dr. Minh Bucio [facility] 01-06-2022 15:32-0400 Body temperature 97.7 [degF] Dr. Minh Bucio [facility] 01-06-2022 15:32-0400 Diastolic blood pressure 70 mm[Hg] Dr. Minh Kim [facility] 01-06-2022 15:32-0400 Heart rate 74 /[facility] 01-06-2022 15:32-0400 Oxygen saturation in Blood 94 % Dr. Minh Kim [facility] 01-06-2022 15:32-0400 Respiratory rate 20 /min Dr. Minh Bucio [facility] 01-06-2022 15:32-0400 Systolic blood pressure 160 mm[Hg] Dr. Minh Kim [facility] 01-06-2022 11:44-0400 Body temperature 97.8 [degF] II Betokiara Beckwith Work Phone: [facility] 01-06-2022 11:44-0400 Diastolic blood pressure 80 mm[Hg] II Beto Beckwith Work Phone: [facility] 01-06-2022 11:44-0400 Heart rate 73 /min II Beto Beckwith Work Phone: [facility] 01-06-2022 11:44-0400 Respiratory rate 16 /min II Beto Beckwith Work Phone: [facility] 01-06-2022 11:44-0400 SaO2% (BldA) [Mass fraction] 97 % II Beto Beckwith Work Phone: [facility] 01-06-2022 11:44-0400 Systolic blood pressure 132 mm[Hg] II Beto Beckwith Work Phone: [facility] 01-06-2022 08:00-0400 Inhaled oxygen flow rate 2 L/min II Beto Beckwith Work Phone: [facility] 01-06-2022 06:22-0400 Body weight 74 kg II Betokiara Beckwith Work Phone: [facility] 01-04-2022 13:29-0400 Body height 172.72 cm II Betokiara Beckwith Work Phone: [facility] Functional Status Date Assessment Result Facility 01-06-2022 Functional status Patient at [facility] Work Phone: Mental Status Date Assessment Result Facility 01-06-2022 Cognitive function Cognitive Sta tus Patient at [facility] Work Phone: Clinical Notes 01-01-2022 to 06-29-2023 [...] detailed explanation of the procedure including risks. [place] protocol was observed using maximum sterile barrier [...] the needle was exchanged for a 5 Guamanian sheath. The microwire was exchanged for an 0.035 wire, and the tract was dilated to accommodate a 7 Guamanian by 20 cm non tunneled triple-lumen central [...] by: Bouchra Brambila MD 06/29/23 Final result [facility] 01-05-2022 Progress note Note Date/Time January 05, 2022 12:53pm [facility] [address] [place] [address] Hospitalist Progress Note Signed Patient: Esa Leavitt MR#: [id number] : 1935 Acct:[id number] Age/Sex: 86 / M Adm Date: 2 Loc: 3T Room: [address] [place] [address] Type: ADM IN Attending Dr: Mohsen Muniz [...] Insuln.Pen SUBCUT 01/01/23 16:59 Not Given TID.WM.HS [facility] Protocol Ketorolac Tromethamine 30 mg [...] [address] RAMIREZ 01/06/23 08:59 DAILY MASOOD Ondansetron HCl 4 [...] Cont patient on Eliquis given his elevated [id number] score Generalized deconditioning PT/OT assessment recommends SNF [...] <Electronically signed by Mohsen Muniz MD> 01/05/22 [id number] [facility] Work Phone: 1(588) 428-777608-30-2022 Progress note Author Demetra Downey [facility] January 04, 2022 4:33pm Note Date/Time January 04, 2022 4: 29pm [facility] [address] [place] [address] Cardiology Progress Note Signed Patient: Esa Leavitt MR#: [id number] : 1935 Acct:[id number] Age/Sex: 86 / M Adm Date: 2 Loc: Room: [address] [place] [address] Type: ADM IN Attending Dr: Mohsen Muniz [...] % (Auto) 76.0 Lymph % (Auto) 8.6 Alexander % (Auto) 12.6 Eos % (Auto) 2.3 Baso % (Auto) 0.5 Neut # (Auto) 4.6 Lymph # (Auto) 0.5 L Alexander # (Auto) 0.8 Eos # (Auto) 0.1 [...] MPV Neut % (Auto) Lymph % (Auto) Alexander % (Auto) Eos % (Auto) Baso % (Auto) Neut # (Auto) Lymph # (Auto) Alexander # (Auto) Eos # (Auto) Baso # [...] MPV Neut % (Auto) Lymph % (Auto) Alexander % (Auto) Eos % (Auto) Baso % (Auto) Neut # (Auto) Lymph # (Auto) Alexander # (Auto) Eos # (Auto) Baso # [...] present medications Documented By: Demetra Downey MD, [facility] 2 [id number] Signed By: <Electronically signed by MD AIDA Downey> 01/04/22 [address] [facility] Work Phone: 1([phone] 178-790908-30-2022 Progress note Author Mohsen Muniz [facility] January 04, 2022 11:51am Note Date/Time January 04, 2022 11 :51am [facility] [address] [place] [address] Hospitalist Progress Note Signed Patient: Esa Leavitt MR#: [id number] : 1935 Acct:[id number] Age/Sex: 86 / M Adm Date: 2 Loc: Room: [address] [place] [address] Type: ADM IN Attending Dr: Mohsen Muniz [...] 1,000 Mcg Tablet PO 01/05/23 08:59 QAM [facility] Dextrose 0 gm 01/01/22 14:39 Dextrose 50% [...] Insuln.Pen SUBCUT 01/01/23 16:59 Not Given TID.WM.HS [facility] Protocol Ketorolac Tromethamine 30 mg [...] Cont patient on Eliquis given his elevated SOH8ON3-NYVc score Generalized deconditioning PT/OT assessment recommends SNF [...] signed by Mohsen Muniz MD> 01/04/22 1151 [facility] Work Phone: 1(727) 106-407908-29-2022 Progress note Author Mohsen Muniz [facility] January 03, 2022 7:41pm Note Date/Time January 03, 2022 7: 16pm [facility] [address] [place] [address] Hospitalist Progress Note Signed Patient: Esa Leavitt MR#: [id number] : 1935 Acct:[id number] Age/Sex: 86 / M Adm Date: 2 Loc: Room: [address] [place] [address] Type: ADM IN Attending Dr: Mohsen Muniz [...] 01/01/23 16:59 Not Given TID.WM.HS [facility] Protocol Ketorolac Tromethamine 30 mg 01/03/22 17:44 [...] Cont patient on Eliquis given his elevated BEN6SX9-ISPt score Generalized deconditioning PT/OT assessment recommends SNF [...] <Electronically signed by Mohsen Muniz MD> 01/03/221940 [facility] Work Phone: 1(774) 130-855508-29-2022 Progress note Author Demetra Downey [facility] January 03, 2022 12:51pm Note Date/Time January 03, 2022 12 :46pm [facility] [address] [place] [address] Cardiology Progress Note Signed Patient: Esa Leavitt MR#: [id number] : 1935 Acct:[id number] Age/Sex: 86 / M Adm Date: 2 Loc: Room: [address] [place] [address] Type: ADM IN Attending Dr: Mohsen Muniz [...] Status: Acute Documented By: Demetra Downey MD, [facility] 2 1245 Signed By: <Electronically signed by MD AIDA Downey> 01/03/22 1251 [facility] Work Phone: 1(150) 465-854408-28-2022 Progress note Author Ronit Caruso [facility] January 02, 2022 6:16pm Note Date/Time January 02, 2022 6: 16pm [facility] [address] [place] [address] Hospitalist Progress Note Signed Patient: Esa Leavitt MR#: [id number] : 1935 Acct:[id number] Age/Sex: 86 / M Adm Date: 2 Loc: Room: [address] [place] [address] Type: ADM IN Attending Dr: Ronit Caruso [...] Insuln.Pen SUBCUT 01/01/23 16:59 Not Given TID.WM.HS [facility] Protocol Labetalol HCl 5 mg 01/01/22 00:08 [...] Start patient on Eliquis given his elevated [id number]-BSIp score ? Echo is pending ? Check [...] <Electronically signed by Ronit Caruso MD> 01/02/221815 [facility] Work Phone: 1(795) 357-918008-28-2022 Progress note Author Demetra Downey [facility] January 02, 2022 1:39pm Note Date/Time January 02, 2022 1: 35pm [facility] [address] [place] [address] Cardiology Progress Note Signed Patient: Esa Leavitt MR#: [id number] : 1935 Acct:[id number] Age/Sex: 86 / M Adm Date: 2 Loc: Room: [address] [place] [address] Type: ADM IN Attending Dr: Ronit Caruso [...] MPV Neut % (Auto) Lymph % (Auto) Alexander % (Auto) Eos % (Auto) Baso % (Auto) Neut # (Auto) Lymph # (Auto) Alexander # (Auto) Eos # (Auto) Baso # (Auto) Nucleated RBC % (auto) PHA Creatinine Clear Sodium Potassium Chloride Carbon Dioxide BUN Creatinine Est GFR ( Amer) Est GFR (Non-Af Amer) Glucose POC Glucose 130 159 POC Glucose Comment Calcium Urine Color [place] A Urine Appearance Clear Urine pH 5.5 Ur Specific [place] 1.020 Urine Protein Negative Urine Glucose (UA) [...] % (Auto) 79.0 Lymph % (Auto) 9.0 Alexander % (Auto) 11.1 Eos % (Auto) 0.3 Baso % (Auto) 0.6 Neut # (Auto) 7.4 Lymph # (Auto) 0.8 L Alexander # (Auto) 1.0 H Eos # (Auto) [...] Color Urine Appearance Urine pH Ur Specific [place] Urine Protein Urine Glucose (UA) Urine Ketones Urine Occult Blood Urine Nitrite Urine Bilirubin Urine Urobilinogen Ur Leukocyte Esterase Urine RBC Urine WBC Ur Squamous Epith Cells Urine Bacteria Hyaline Casts 01/02/22 11:42 Corrected WBC Uncorrected WBC Count RBC Hgb Hct MCV MCH MCHC RDW Plt Count MPV Neut % (Auto) Lymph % (Auto) Alexander % (Auto) Eos % (Auto) Baso % (Auto) Neut # (Auto) Lymph # (Auto) Alexander # (Auto) Eos # (Auto) Baso # (Auto) Nucleated RBC % (auto) PHA Creatinine Clear Sodium Potassium Chloride Carbon Dioxide BUN Creatinine Est GFR ( Amer) Est GFR (Non-Af Amer) Glucose POC Glucose 144 POC Glucose Comment Glu2: cleaned meter Calcium Urine Color Urine Appearance Urine pH Ur Specific [place] Urine Protein Urine Glucose (UA) Urine Ketones [...] test tomorrow Documented By: Demetra Downey MD, [facility] 1332 Signed By: <Electronically signed by [facility] Demetra Downey> 01/02/22 1339 [facility] Work Phone: 1(303) [phone] Consult note Author Anderson Ambrosio [facility] January 01, 2022 4:03pm Note Date/Time January 01, 2022 4: 02pm [facility] [address] [place], [place] [address] Cardiology Consult Note Signed Patient: Esa Leavitt MR#: [id number] : 1935 Acct:[id number] Age/Sex: 86 / M Adm Date: 2 Loc: 3T Room: [address] [place] [address] Type: ADM IN Attending Dr: Ronit Caruso [...] was brought to the emergency department at [facility]. He was found by first EKG to [...] very limited mobility and access to transportation. [facility]?: Unknown Medical History Diabetes mellitus Hyperlipidemia Hypertension Social History Smoking Status: Former smoker Tobacco Type: cigarettes Substance Use Type: Alcohol Substance Abuse Comment: 2-3 Meds Medications and Allergies Allergies No Known [...] (Auto) 0.6 L 0.6 L (1.00-4.8) x10E3/uL Alexander # (Auto) 0.9 H 1.5 H (0.0-0.8) [...] <Electronically signed by Anderson Ambrosio MD> 01/01/[address] [facility] Work Phone: 1(205) 435-426508-27-2022 Progress note Author Ronit Caruso [facility] January 01, 2022 2:37pm Note Date/Time January 01, 2022 2: 37pm [facility] [address] [place] [address] Hospitalist Progress Note Signed Patient: Esa Leavitt MR#: [id number] : 1935 Acct:[id number] Age/Sex: 86 / M Adm Date: 2 Loc: Room: [address] [place] [address] Type: ADM IN Attending Dr: Ronit Caruso [...] signed by Ronit Caruso MD> 01/01/[address] [facility] Work Phone: 1(763) 548-350508-27-2022 History and physical note Author Anabella Dunlap [facility] January 01, 2022 12:22am Note Date/Time January 01, 2022 12 :22am [facility] [address] [place] [address] Hospitalist H&P Signed Patient: Esa Leavitt MR#: [id number] : 1935 Acct:[id number] Age/Sex: 86 / M Adm Date: 2 Loc: ER Room: Type: [facility] ER Attending Dr: Copies to: [...] (83.5-101) 12/31/21 22:45 MCH 32.0 pg (27.5-35.2) 12/31/21 22:45 MCHC 32.9 g/dL (32.5-35.6) 12/31/21 22:45 RDW 13.3 % (12.0-14.8) 12/31/21 22:45 Plt Count 254 x10E3/uL (150-450) 12/31/21 22:45 MPV 8.7 fl (6.6-10.1) 12/31/21 22:45 Neut % (Auto) 88.6 % (.) 12/31/21 22:45 Lymph % (Auto) 4.3 % (.) 12/31/21 22:45 Alexander % (Auto) 6.6 % (.) 12/31/21 22:45 Eos % (Auto) 0.2 % (.) 12/31/21 22:45 Baso % (Auto) 0.3 % (.) 12/31/21 22:45 Neut # (Auto) 12.3 x10E3/uL (1.8-7.7) H 12/31/21 22:45 Lymph # (Auto) 0.6 x10E3/uL (1.00-4.8) L 12/31/21 22:45 Alexander # (Auto) 0.9 x10E3/uL (0.0-0.8) H 12/31/21 22:45 Eos # (Auto) 0.0 x10E3/uL (0.0-0.45) 12/31/21 22:45 Baso # (Auto) 0.0 x10E3/uL (0.0-0.2) 12/31/21 22:45 Nucleated RBC % (auto) 0.1 % (0-0.5) [...] Start patient on Eliquis given his elevated KWO8GY9-QHWp score ? Echo is pending ? Check TSH and free T4 *Chronic medical issues 1. Hypertension 2. Diabetes 3. Hyperlipidemia ? Continue his home medications Documented By: Anabella Stone MD 2 0014 Signed By: <Electronically signed by Anabella Stone MD> 01/01/[address] [facility] Work Phone: Consult note Author Anderson Ambrosio [facility] January 01, 2022 4:03pm Note Date/Time January 01, 2022 4: 02pm [facility] [address] [place] [address] Cardiology Consult Note Signed Patient: Esa Leavitt MR#: [id number] : 1935 Acct:[id number] Age/Sex: 86 / M Adm Date: 2 Loc: Room: [address] [place] [address] Type: ADM IN Attending Dr: Ronit Caruso [...] was brought to the emergency department at [facility]. He was found by first EKG to [...] (Auto) 0.6 L 0.6 L (1.00-4.8) x10E3/uL Alexander # (Auto) 0.9 H 1.5 H (0.0-0.8) [...] family. Documented By: Anderson Ambrosio MD 01/01/22 4227 Signed By: <Electronically signed by Anderson Ambrosio MD> 01/01/22 1607 [facility] Work Phone: Discharge summary Author Mohsen Muniz [facility] January 06, 2022 12:58pm Note Date/Time January 06, 2022 12:58pm [facility] [address] [place], [place] [address] Discharge Summary Signed Patient: Esa Leavitt MR#: [id number] : 1935 Acct:[id number] Age/Sex: 86 / M Adm Date: 2 Loc: Room: [address] [place] [address]: Mohsen Muniz MD Copies to: [...] no history of A. fib. Given elevated MUU3VU2-STNq, he was started on Eliquis. He was further evaluated for his chest pain with nuclear medicine stress testing. This was positive for possibly apical reversible ischemia. Cardiology team discussed these findings with patient and his family, and patient ultimately decided to continue with medical management only at this time. Otherwise, patient was assessed by physical and Occupational Therapy who recommended shelter placement. He was agreeable and was discharged [...] signed by Mohsen Muniz MD> 01/06/[address] [facility] Work Phone: Evaluation note* Diagnosis Onset Date Resolution Status Atrial fibrillation with rapid ventricular response acute Chest pain acute Essential hypertension acute [facility] Work Phone: Hospital Discharge instructions Additional Instructions SNF TO MANAGE: PT/OT to eval and treat Monitor VS per protocol--Hx of HTN Monitor FSBS per protocol Maintain high risk fall precautions [facility] Work Phone: Progress note Author Ronit Caruso [facility] January 01, 2022 2:37pm Note Date/Time January 01, 2022 2: 37pm [facility] [address] [place] [address] Hospitalist Progress Note Signed Patient: Esa Leavitt MR#: [id number] : 1935 Acct:[id number] Age/Sex: 86 / M Adm Date: 2 Loc: Room: [address] [place] [address] Type: ADM IN Attending Dr: Ronit Caruso [...] signed by Ronit Caruso MD> 01/01/22 1437 [facility] Work Phone: Progress note Author Demetra Downey [facility] January 02, 2022 1:39pm Note Date/Time January 02, 2022 1: 35pm [facility] [address] [place] [address] Cardiology Progress Note Signed Patient: Esa Leavitt MR#: [id number] : 1935 Acct:[id number] Age/Sex: 86 / M Adm Date: 2 Loc: Room: [address] [place] [address] Type: ADM IN Attending Dr: Ronit Caruso [...] MPV Neut % (Auto) Lymph % (Auto) Alexander % (Auto) Eos % (Auto) Baso % (Auto) Neut # (Auto) Lymph # (Auto) Alexander # (Auto) Eos # (Auto) Baso # (Auto) Nucleated RBC % (auto) PHA Creatinine Clear Sodium Potassium Chloride Carbon Dioxide BUN Creatinine Est GFR ( Amer) Est GFR (Non-Af Amer) Glucose POC Glucose 130 159 POC Glucose Comment Calcium Urine Color [place] A Urine Appearance Clear Urine pH 5.5 Ur Specific [place] 1.020 Urine Protein Negative Urine Glucose (UA) [...] % (Auto) 79.0 Lymph % (Auto) 9.0 Alexander % (Auto) 11.1 Eos % (Auto) 0.3 Baso % (Auto) 0.6 Neut # (Auto) 7.4 Lymph # (Auto) 0.8 L Alexander # (Auto) 1.0 H Eos # (Auto) [...] Color Urine Appearance Urine pH Ur Specific [place] Urine Protein Urine Glucose (UA) Urine Ketones Urine Occult Blood Urine Nitrite Urine Bilirubin Urine Urobilinogen Ur Leukocyte Esterase Urine RBC Urine WBC Ur Squamous Epith Cells Urine Bacteria Hyaline Casts 01/02/22 11:42 Corrected WBC Uncorrected WBC Count RBC Hgb Hct MCV MCH MCHC RDW Plt Count MPV Neut % (Auto) Lymph % (Auto) Alexander % (Auto) Eos % (Auto) Baso % (Auto) Neut # (Auto) Lymph # (Auto) Alexander # (Auto) Eos # (Auto) Baso # (Auto) Nucleated RBC % (auto) PHA Creatinine Clear Sodium Potassium Chloride Carbon Dioxide BUN Creatinine Est GFR ( Amer) Est GFR (Non-Af Amer) Glucose POC Glucose 144 POC Glucose Comment Glu2: cleaned meter Calcium Urine Color Urine Appearance Urine pH Ur Specific [place] Urine Protein Urine Glucose (UA) Urine Ketones [...] test tomorrow Documented By: Demetra Downey MD, [facility] 2 1332 Signed By: <Electronically signed by MD AIDA Downey> 01/02/22 1339 [facility] Work Phone: Progress note Author Ronit Caruso [facility] January 02, 2022 6:16pm Note Date/Time January 02, 2022 6: 16pm [facility] [address] [place] [address] Hospitalist Progress Note Signed Patient: Esa Leavitt MR#: [id number] : 1935 Acct:[id number] Age/Sex: 86 / M Adm Date: 2 Loc: Room: [address] [place] [address] Type: ADM IN Attending Dr: Ronit Caruso [...] Tab.Chew PO 01/01/23 08:59 81 mg DAILY [facility] Administration Atorvastatin Calcium 20 mg 01/01/22 09:00 [...] Insuln.Pen SUBCUT 01/01/23 16:59 Not Given TID.WM.HS [facility] Protocol Labetalol HCl 5 mg 01/01/22 00:08 [...] Start patient on Eliquis given his elevated XXZ6EU8-WGKc score ? Echo is pending ? Check [...] <Electronically signed by Ronit Caruso MD> 01/02/221815 [facility] Work Phone: Progress note Author Demetra Downey [facility] January 03, 2022 12:51pm Note Date/Time January 03, 2022 12 :46pm [facility] [address] [place] [address] Cardiology Progress Note Signed Patient: Esa Leavitt MR#: [id number] : 1935 Acct:[id number] Age/Sex: 86 / M Adm Date: 2 Loc: 3T Room: [address] [place] [address] Type: ADM IN Attending Dr: Mohsen Muniz [...] Status: Acute Documented By: Demetra Downey MD, [facility] 2 1245 Signed By: <Electronically signed by [facility] Demetra Downey> 01/03/22 1251 [facility] Work Phone: Progress note Author Mohsen Muniz [facility] January 03, 2022 7:41pm Note Date/Time January 03, 2022 7: 16pm [facility] [address] [place] [address] Hospitalist Progress Note Signed Patient: Esa Leavitt MR#: [id number] : 1935 Acct:[id number] Age/Sex: 86 / M Adm Date: 2 Loc: Room: [address] [place] [address] Type: ADM IN Attending Dr: Mohsen Muniz [...] 01/01/23 16:59 Not Given TID.WM.HS [facility] Protocol Ketorolac Tromethamine 30 mg 01/03/22 17:44 [...] Cont patient on Eliquis given his elevated ERU8JO3-HZTp score Generalized deconditioning PT/OT assessment recommends SNF [...] medications Documented By: Mohsen Muniz MD 2 1913 Signed By: <Electronically signed by Mohsen Muniz MD> 01/03/221940 [facility] Work Phone: Progress note Author Mohsen Muniz [facility] January 04, 2022 11:51am Note Date/Time January 04, 2022 11 :51am [facility] [address] [place] [address] Hospitalist Progress Note Signed Patient: Esa Leavitt MR#: [id number] : 1935 Acct:[id number] Age/Sex: 86 / M Adm Date: 2 Loc: Room: [address] [place] [address] Type: ADM IN Attending Dr: Mohsen Muniz [...] Insuln.Pen SUBCUT 01/01/23 16:59 Not Given TID.WM.HS [facility] Protocol Ketorolac Tromethamine 30 mg [...] Cont patient on Eliquis given his elevated KZJ0KX6-OYGi score Generalized deconditioning PT/OT assessment recommends SNF [...] signed by Mohsen Muniz MD> 01/04/22 1151 [facility] Work Phone: Progress note Author Demetra Downey [facility] January 04, 2022 4:33pm Note Date/Time January 04, 2022 4: 29pm [facility] [address] [place], [place] [address] Cardiology Progress Note Signed Patient: Esa Leavitt MR#: [id number] : 1935 Acct:[id number] Age/Sex: 86 / M Adm Date: 2 Loc: Room: [address] [place] [address] Type: ADM IN Attending Dr: Mohsen Muniz [...] % (Auto) 76.0 Lymph % (Auto) 8.6 Alexander % (Auto) 12.6 Eos % (Auto) 2.3 Baso % (Auto) 0.5 Neut # (Auto) 4.6 Lymph # (Auto) 0.5 L Alexander # (Auto) 0.8 Eos # (Auto) 0.1 [...] MPV Neut % (Auto) Lymph % (Auto) Alexander % (Auto) Eos % (Auto) Baso % (Auto) Neut # (Auto) Lymph # (Auto) Alexander # (Auto) Eos # (Auto) Baso # [...] MPV Neut % (Auto) Lymph % (Auto) Alexander % (Auto) Eos % (Auto) Baso % (Auto) Neut # (Auto) Lymph # (Auto) Alexander # (Auto) Eos # (Auto) Baso # [...] present medications Documented By: Demetra Downey MD, [facility] 2 1628 Signed By: <Electronically signed by [facility]> 01/04/22 1633 [facility] Work Phone: Progress note Author Mohsen Muniz [facility] January 05, 2022 12:53pm Note Date/Time January 05, 2022 12 :53pm [facility] [address] [place] [address] Hospitalist Progress Note Signed Patient: Esa Leavitt MR#: [id number] : 1935 Acct:[id number] Age/Sex: 86 / M Adm Date: 2 Loc: 3T Room: [address] [place] [address] Type: ADM IN Attending Dr: Mohsen Muniz [...] Insuln.Pen SUBCUT 01/01/23 16:59 Not Given TID.WM.HS [facility] Protocol Ketorolac Tromethamine 30 mg [...] 20 Mg Capsule.Dr PO 01/06/23 08:59 DAILY [facility] Ondansetron HCl [...] Cont patient on Eliquis given his elevated SUD7XC5-SLOl score Generalized deconditioning PT/OT assessment recommends SNF [...] signed by Mohsen Muniz MD> 01/05/[address] [facility] Work Phone: Summary Purpose Family History [...] and content) DATE CREATED AUTHOR 11/04/2020 [facility] DATE CREATED AUTHOR AUTHOR'S ORGANIZ ATION 10/08/2021 [facility] dical Specialist DATE CREATED AUTHOR AUTHOR'S ORGANIZ ATION 02/12/2022 [facility] DATE CREATED AUTHOR AUTHOR'S ORGANIZ ATION 06/16/2022 [facility] DATE CREATED AUTHOR AUTHOR'S ORGANIZ ATION 09/03/2022 [facility] DATE CREATED AUTHOR AUTHOR'S ORGANIZ ATION 07/29/[address] [facility] DATE CREATED AUTHOR AUTHOR'S ORGANIZ ATION 09/29/2023 [facility] dical Specialists EPIC Care Teams (unrecognized sec [...] Active Team Status: Active Member Role Status Dates Beto Beckwith II MD Primary Care Provider Active Team Status: Inactive Member Role Status Dates [...] BE BASED ON THE PRIMARY CLINICAL RECORDS. [facility] [employer] provides no warranty or guarantee of the accuracy or completeness of information in this document.
[2023-11-06 18:43] LABS: Hematocrit 28.5 % (42.0-54.0); Hemoglobin 9.2 g/dL (14.0-18.0); Mean Corpuscular HGB Conc 32.3 g/dL (29.9-35.2); Mean Corpuscular Hemoglobin 28.1 pg (25.9-34.0); Mean Corpuscular Volume 87.2 fL (80.0-94.0); Mean Platelet Volume 10.3 fL (9.5-13.5); Platelet Count 378 10^3/uL (150-450); Red Blood Count 3.27 10^6/uL (4.70-6.10); Red Cell Distribution Width 17.4 % (11.0-15.0); White Blood Count 8.7 10^3/uL (4.0-11.0)
[2023-11-06 18:57] LABS: Alanine Aminotransferase 25 U/L (16-63); Albumin Globulin Ratio 0.7; Albumin Level 2.4 g/dL (3.4-5.0); Alkaline Phosphatase 115 U/L (46-116); Anion Gap 11.4; Aspartate Amino Transferase 23 U/L (15-37); BUN Creatinine Ratio 30.3; Bilirubin Total 0.5 mg/dL (0.2-1.0); Calcium 7.9 mg/dL (8.5-10.1); Carbon Dioxide 30.2 mmol/L (21.0-32.0); Chloride 100 mmol/L (98-107); Estimated GFR (African America >60 (>=60); Estimated GFR (Non-African Ame >60 (>=60); Globulin 3.5 g/dL; Glucose 176 mg/dL (74-106); INR 1.19; Potassium 3.6 mmol/L (3.5-5.1); Prothrombin Time 12.4 sec (9.0-11.6); Sodium 138 mmol/L (136-145); Total Protein 5.9 g/dL (6.4-8.2)
[2023-11-06 18:59] LABS: Lymphocytes Absolute Manual 0.52 10^3/uL (1.20-3.80); Segmented Neut Absolute Manual 8.17 10^3/uL (1.4-6.5)
[2023-11-06 19:06] LABS: Troponin I High Sensitivity 6.7 pg/mL (4.0-76.1)
== END 2023-11-06 21:00 | disposition home or self-care (01) ==
PROVIDERS: Physician Assistant; Emergency Provider Emergency Medicine; Family Provider Internal Medicine; PCP Internal Medicine
DX: R60.9 Edema, unspecified (principal); Z96.0 Presence of urogenital implants
CPT/HCPCS: 36415; 71045; 80053; 83880; 84484; 85007; 85027; 85610; 93005; 99285

== ENCOUNTER 2023-11-24 14:16 | Emergency (ER) | payer MEDICARE, SELFPAY ==
[2023-11-24 14:18] VITALS: BP 108/52; PULSE 82; TEMP 36.4; O2SAT 97; BMI 24.2
--- NOTE | 2023-11-24 15:21 | ED_ITS ---
HPI HPI - General Adult General Chief complaint: Urogenital-Male Stated complaint: URINARY RETENTION Time Seen by Provider: 11/24/23 14:36 Source: patient Mode of arrival: ambulance History of Present Illness HPI narrative: Pt is a 88yo male who is presenting to the ER today to have a Fang catheter placed. Patient is currently staying at a nursing facility. Patient just had his Fang catheter removed yesterday. Patient is not able to urinate on his own. Patient had a bladder scan they had over 400 cc in his bladder. Patient has no significant abdominal pain, nausea or vomiting. Patient has generalized lymphedema chronically. No new complaints today besides sent to the ER by nursing facility to have a new catheter placed. All systems are negative except as noted/marked. All systems reviewed and otherwise negative. Nurses note and vital signs reviewed and patient is not hypoxic. General: The patient appears well and in no apparent distress. Patient is resting comfortably on cart. Patient is not toxic, lethargic, or listless Skin: Warm, dry, no pallor noted. There is no rash noted. No petechiae, purpura. Head: Normocephalic, atraumatic Eye: Normal conjunctiva, no drainage, EOMI. PERRL Ears, Nose, Mouth, and Throat: oral mucosa is moist. Nares patent. Mouth without vesicles. Cardiovascular: Regular Rate and Rhythm, no murmur, gallop, rub Respiratory: Patient is in no distress, no accessory muscle use, lungs are clear to auscultation, no wheezing, rales or rhonchi Back: non-tender, no CVA tenderness bilaterally to percussion. No CT LS midline pain GI: no tenderness to palpation, no masses appreciated. No rebound, guarding, or rigidity noted. No distention. No tenderness to palpation to bilateral testicles, no significant rash noted. Musculoskeletal: Patient has full range of motion of all of the extremities, no motor, sensory, or focal neurological deficits generalized chronic lymphedema, no acute signs of venous stasis or cellulitis.. Neurological: A&O x4, normal speech Psychiatric: Cooperative Related Data Home Medications ?Medication ?Instructions ?Recorded ?Confirmed apixaban 5 mg tablet (Eliquis) 5 mg PO QDAY 05/10/23 11/02/23 atorvastatin 40 mg tablet 40 mg PO .qhs 05/10/23 11/02/23 diltiazem HCl 180 mg 180 mg PO Q24H 05/10/23 11/02/23 capsule,extended release 24 hr ferrous sulfate 325 mg (65 mg 325 mg PO DAILY 05/10/23 11/02/23 iron) tablet metoprolol succinate 50 mg 50 mg PO QDAY 05/10/23 11/02/23 tablet,extended release 24 hr omeprazole 20 mg capsule,delayed 20 mg PO DAILY 11/02/23 11/02/23 release tramadol 50 mg tablet 50 mg PO Q12H PRN pain 11/02/23 11/02/23 Allergies Allergy/AdvReac Type Severity Reaction Status Date / Time No Known Drug Allergies Allergy Verified 11/06/23 18:22 Opioid HPI Opioid Management Most Recent Opioid Data: Last Pain Scale 0 06/25/23 16:52 Last Pain Intensity 4 05/12/23 09:12 [facility] Medical History (Updated 11/24/23 @ 15:21 by Brooks Urena MD) Paroxysmal atrial fibrillation ?I48.0 - Paroxysmal atrial fibrillation (ICD-10) Type 2 diabetes mellitus with hyperglycemia ?E11.65 - Type 2 diabetes mellitus with hyperglycemia (ICD-10) HTN (hypertension) ?I10 - Essential (primary) hypertension (ICD-10) Ankle sprain and strain ?S93.409A - Sprain of unspecified ligament of unspecified ankle, initial encounter (ICD-10) ?S96.919A - Strain of unspecified muscle and tendon at ankle and foot level, unspecified foot, initial encounter (ICD-10) High cholesterol ?E78.00 - Pure hypercholesterolemia, unspecified (ICD-10) Atrial fibrillation ?I48.91 - Unspecified atrial fibrillation (ICD-10) Diabetes 1.5, managed as type 2 ?E13.9 - Other specified diabetes mellitus without complications (ICD-10) Surgical History (Updated 05/10/23 @ 20:31 by Rukhsana Perez) Hernia ?K46.9 - Unspecified abdominal hernia without obstruction or gangrene (ICD- 10) History of tonsillectomy ?Z90.89 - Acquired absence of other organs (ICD-10) Back pain with history of spinal surgery ?M54.9 - Dorsalgia, unspecified (ICD-10) ?Z98.890 - Other specified postprocedural states (ICD-10) Social History Within the past year, how often did you have a drink containing alcohol: 4 or more times a week Within the past year, how many standard drinks containing alcohol did you have on a typical day: 1 or 2 Total score: 0 Score interpretation: A score less than 4 is consistent with normal alcohol consumption. Smoking status: Never smoker Non-prescribed substance use: denies use Previous occupational history: retired Highest level of school completed/degree received: Bachelor's degree Are you now , , , , never or living with a partner: In a typical week, how many times do you talk on the telephone with family, friends, or neighbors: 3 or more times per week How often do you get together with friends or relatives: 3 or more times per week How often do you attend nondenominational or confucianism services: never Do you belong to any clubs or organizations such as nondenominational groups unions, [employer] or athletic groups, or school groups: no Total score: 2 Score interpretation: A score of greater than or equal to 2 indicates the lowest level of social isolation. Little interest or pleasure in doing things: not at all Feeling down, depressed, or hopeless: not at all Feel stressed/tense/nervous/anxious/difficulty sleeping: not at all Do you think of yourself as: straight/heterosexual Gender Identity: male Exam Constitutional Vital Signs, click to edit/add: Last Vital Signs Temp 97.5 F L 11/24/23 14:18 Pulse 82 11/24/23 14:18 Resp 18 11/24/23 14:18 BP 108/52 11/24/23 14:18 Pulse Ox 97 11/24/23 14:18 O2 Del Method Room Air 11/24/23 14:18 Course Vital Signs Vital signs: Vital Signs Temperature 97.5 F L 11/24/23 14:18 Pulse Rate 82 11/24/23 14:18 Respiratory Rate 18 11/24/23 14:18 Blood Pressure 108/52 11/24/23 14:18 Pulse Oximetry 97 11/24/23 14:18 Oxygen Delivery Method Room Air 11/24/23 14:18 Temperature 97.5 F L 11/24/23 14:18 Pulse Rate 82 11/24/23 14:18 Respiratory Rate 18 11/24/23 14:18 Blood Pressure 108/52 11/24/23 14:18 Pulse Oximetry 97 11/24/23 14:18 Oxygen Delivery Method Room Air 11/24/23 14:18 Medical Decision Making MDM Narrative Medical decision making narrative: Patient had a bladder scan with over 400 cc in his bladder. Patient has some mild to moderate suprapubic tenderness. Patient was sent from a nursing facility to have a Fang catheter replaced for the weekend because patient has not urinated since yesterday. Patient will follow-up with PCP and urologist. No questions at discharge. Patient understands and agrees to Fang catheter placement. Patient was taken back to nursing facility by his son. Discharge Plan Discharge Stand Alone Forms: Portal Instructions Chief Complaint: Urogenital-Male Clinical Impression: Acute on chronic urinary retention Patient Disposition: Home, Self-Care Time of Disposition Decision: 15:20 Condition: Fair Prescriptions / Home Meds: No Action Eliquis 5 mg tablet 5 mg PO QDAY atorvastatin 40 mg tablet 40 mg PO .qhs diltiazem HCl 180 mg capsule,extended release 24hr 180 mg PO Q24H ferrous sulfate 325 mg (65 mg iron) tablet 325 mg PO DAILY metoprolol succinate 50 mg tablet extended release 24 hr 50 mg PO QDAY omeprazole 20 mg capsule,delayed release(DR/EC) 20 mg PO DAILY tramadol 50 mg tablet 50 mg PO Q12H PRN (Reason: pain) Print Language: Divehi Instructions: Urinary Retention in Men (ED) Additional Instructions: Urine culture is pending, fang catheter placed again. Referrals: HIEN TEIXEIRA [Primary Care Provider] - 1 week Discharge Date/Time: 11/24/23 16:11
== END 2023-11-24 16:11 | disposition home or self-care (01) ==
PROVIDERS: Emergency Provider Emergency Medicine; Family Provider Internal Medicine; PCP Internal Medicine
DX: R33.9 Retention of urine, unspecified (principal); I89.0 Lymphedema, not elsewhere classified
CPT/HCPCS: 51702; 51798; 87086; 99283